=== PATIENT | male | born 1965 | race Caucasian/White ===

== ENCOUNTER 2018-01-15 21:36 | Inpatient (IN) | payer OTHER ==
[2018-01-15] MEDS ORDERED: SODIUM CHLORIDE 0.9% 1,000 ML with MVI, ADULT NO.4 WITH VIT K 10 ML, THIAMINE 100 MG, F... IV ONE ×4 (22:24)
--- NOTE | 2018-01-15 22:30 | ED ---
General Adult HPI - General Chief complaint: Alcohol Stated complaint: ETOH Time Seen by Provider: 01/15/18 21:59 Source: patient, EMS, RN notes reviewed, old records reviewed Mode of arrival: EMS - History of Present Illness Initial comments: Chief complaint and history of present illness this is a 52-year-old male reports he was drinking heavily recently. Had a fall bruising as noted. Also complains discomfort to the right side of his head after previous fall but he can't remember. Patient presents intoxicated. - Related Data Home Medications Medication Instructions Recorded Confirmed Ibuprofen [Motrin Ib] 600 mg PO Q6H PRN 01/15/18 01/15/18 Allergies Allergy/AdvReac Type Severity Reaction Status Date / Time No Known Allergies Allergy Verified 01/15/18 22:08 Review of Systems ROS Statement: Those systems with pertinent positive or pertinent negative responses have been documented in the HPI. Review of systems patient is answering questions but he can't remember when or how he fell. Denies any visual acuity changes this complaining of mild headache denies neck pain. He does have right anterior chest wall pain is a large bruise. No abdominal pain. Not complaining of any nausea no vomiting no diarrhea. He reports 3 years she's had numbness to both his hands and his feet. Chronic neck and back pain. Nothing new all systems are reviewed Past medical problems COPD, smoker. GERD, seizure disorder last one 18 months ago. Syncopal episodes usually associated with alcohol seizures also associated when he stops drinking. The patient's surgeries include ear surgery tonsils the nasal surgery. Family history noncontributory patient does smoke drinks alcohol daily to excess. ROS Other: All systems not noted in ROS Statement are negative. Past Medical History Past Medical History: COPD, GERD/Reflux, Seizure Disorder, Syncope Additional Past Medical History / Comment(s): ETOH abuse 4years, syncope with seizure related to alcohol withdrawal and delerium tremors, thrombocytopenia, hyponatremia, increased AST and ALT and increased random blood sugars, gait dysfunction and encephalopathy. History of Any Multi-Drug Resistant Organisms: None Reported Past Surgical History: Ear Surgery, Tonsillectomy Additional Past Surgical History / Comment(s): nasal surgery "holes drilled in sinuses for drainage), vocal cord scraping, and bilateral ear surgery which pt believes was for "double mastoids" Past Anesthesia/Blood Transfusion Reactions: No Reported Reaction Past Psychological History: Anxiety, Bipolar, Depression Smoking Status: Current every day smoker Past Alcohol Use History: Daily, Heavy Past Drug Use History: None Reported - Past Family History Father Family Medical History: Cancer Additional Family Medical History / Comment(s): Stomach cancer. He is alive. Mother Family Medical History: No Reported History Additional Family Medical History / Comment(s): Mother is living and is healthy Brother(s) Additional Family Medical History / Comment(s): Bipolar, schizoprenia General Exam - General Exam Comments Initial Comments: General: The patient is awake here because of epistaxis after falling is a bruise on the bridge of his nose. No raccoon eyes. Doesn't remember falling. Chronically intoxicated. Vital signs temperature 97.0 pulse 70 respiratory rate 18 pulse ox 93% room air blood pressure 115/75 Eye: Pupils are equal, round and reactive to light, extra-ocular movements are intact ; there is normal conjunctiva bilaterally. No signs of icterus. Ears, nose, mouth and throat: There are moist mucous membranes abrasion on the bridge of the nose. Controlled epistaxis at this time. Neck: Long history of chronic neck pain. Demonstrates range of motion without increased discomfort.. Cardiovascular: There is a regular rate and rhythm. No murmur, rub or gallop is appreciated. Respiratory: Lungs are clear to auscultation, respirations are non-labored, breath sounds are equal. No wheezes, stridor, rales, or rhonchi. Large reasonably recent bruise over her right breast area. Gastrointestinal: Soft, non-distended, non-tender abdomen without masses or organomegaly noted. There is no rebound or guarding present. No CVA tenderness. Bowel sounds are unremarkable. Back: There is no tenderness to palpation in the midline. There is no obvious deformity. No rashes noted. Musculoskeletal: Chronic numbness hands and feet for many years due to neck and back problems. Neurological: Intoxicated but answering questions appropriately. Moving upper and lower extremities, chronic numbness upper and lower extremities. Skin: Unkempt, chronic alcohol abuse Psychiatric: Cooperative, denies being depressed ,history of alcoholism. Course Vital Signs 01/15/18 21:37 Temperature 97.0 F L Pulse Rate 79 Respiratory 18 Rate Blood Pressure 115/75 O2 Sat by Pulse 93 L Oximetry Medical Decision Making - Medical Decision Making This is a 52-year-old male who admits to being an alcoholic. Here because he fell at home and presented with controlled epistaxis. Patient's answering questions appropriately. Blood alcohol is 0.450. Patient was placed in seizure precautions. Placed on Ativan protocol. Banana bag was started. After CAT scans have been performed patient be admitted to the hospital because of elevated blood alcohol. CT of the brain and cervical spine were done and reviewed by radiologist his findings include there is a fracture of the nasal bone which is displaced to the right side. There is mild cerebral cortical atrophy. There is no mass effect or midline shift. Is no sign of intracranial hemorrhage. Cervical vertebrae of normal alignment. Disc spaces are fairly normal. Posterior elements are intact. There is a mild facet arthropathy in the lower cervical spine. Skull base is intact. There is no evidence of a fracture. There is high attenuation in the left maxillary sinus. Impression nasal bone fracture. Maxillary sinusitis. Ethmoid sinusitis. There is high attenuation in the left maxillary sinus that is new compared to old exam and could be acute hemorrhage. No acute intracranial abnormality. Mild atrophy. Ethmoid density is new and could be related to trauma. No acute abnormality of the cervical spine. No fracture. As read by Dr. Driscoll Chest x-ray was done AP view reviewed by radiologist his impression is no active cardiopulmonary disease. No adverse change compared to old exam. As read by Dr. Driscoll Labs show white count of 4.6 hemoglobin 10 hematocrit 31.9 and a potassium 3.4. BUN 11 creatinine 1.1 GFR greater than 60. Glucose 103. Magnesium low 1.4. He received 1 g of magnesium IV piggyback. AST elevated at 120. Alcohol as noted above is 0.45. Otherwise the urine triage is negative for drugs of abuse. Patient be admitted to Dr. Jamarcus Duque. Continued on Ativan protocol as well as seizure precautions. - Lab Data Result diagrams: 01/15/18 21:47 01/15/18 21:47 Lab Results 01/15/18 01/15/18 01/15/18 Range/Units 21:47 21:47 21:47 WBC 4.6 (3.8-10.6) k/uL RBC 3.09 L (4.30-5.90) m/uL Hgb 10.2 L (13.0-17.5) gm/dL Hct 31.9 L (39.0-53.0) % MCV 103.2 H (80.0-100.0) fL MCH 33.0 (25.0-35.0) pg MCHC 32.0 (31.0-37.0) g/dL RDW 13.1 (11.5-15.5) % Plt Count 115 L (150-450) k/uL Neutrophils % 54 % Lymphocytes % 29 % Monocytes % 9 % Eosinophils % 2 % Basophils % 1 % Neutrophils # 2.5 (1.3-7.7) k/uL Lymphocytes # 1.4 (1.0-4.8) k/uL Monocytes # 0.4 (0-1.0) k/uL Eosinophils # 0.1 (0-0.7) k/uL Basophils # 0.1 (0-0.2) k/uL Macrocytosis Slight PT 10.4 (9.0-12.0) sec INR 1.1 (<1.2) Sodium 141 (137-145) mmol/L Potassium 3.4 L (3.5-5.1) mmol/L Chloride 96 L (98-107) mmol/L Carbon Dioxide 32 H (22-30) mmol/L Anion Gap 13 mmol/L BUN 11 (9-20) mg/dL Creatinine 1.10 (0.66-1.25) mg/dL Est GFR (MDRD) Af Amer >60 (>60 ml/min/1.73 sqM) Est GFR (MDRD) Non-Af >60 (>60 ml/min/1.73 sqM) Glucose 103 H (74-99) mg/dL Calcium 8.0 L (8.4-10.2) mg/dL Magnesium 1.4 L (1.6-2.3) mg/dL Total Bilirubin 0.3 (0.2-1.3) mg/dL AST 120 H (17-59) U/L ALT 59 (21-72) U/L Alkaline Phosphatase 73 (38-126) U/L Total Protein 6.7 (6.3-8.2) g/dL Albumin 3.9 (3.5-5.0) g/dL Urine Opiates Screen (NotDetected) Ur Oxycodone Screen (NotDetected) Urine Methadone Screen (NotDetected) Ur Propoxyphene Screen (NotDetected) Ur Barbiturates Screen (NotDetected) U Tricyclic Antidepress (NotDetected) Ur Phencyclidine Scrn (NotDetected) Ur Amphetamines Screen (NotDetected) U Methamphetamines Scrn (NotDetected) U Benzodiazepines Scrn (NotDetected) Urine Cocaine Screen (NotDetected) U Marijuana (THC) Screen (NotDetected) Serum Alcohol 450 mg/dL 01/15/18 Range/Units 21:47 WBC (3.8-10.6) k/uL RBC (4.30-5.90) m/uL Hgb (13.0-17.5) gm/dL Hct (39.0-53.0) % MCV (80.0-100.0) fL MCH (25.0-35.0) pg MCHC (31.0-37.0) g/dL RDW (11.5-15.5) % Plt Count (150-450) k/uL Neutrophils % % Lymphocytes % % Monocytes % % Eosinophils % % Basophils % % Neutrophils # (1.3-7.7) k/uL Lymphocytes # (1.0-4.8) k/uL Monocytes # (0-1.0) k/uL Eosinophils # (0-0.7) k/uL Basophils # (0-0.2) k/uL Macrocytosis PT (9.0-12.0) sec INR (<1.2) Sodium (137-145) mmol/L Potassium (3.5-5.1) mmol/L Chloride (98-107) mmol/L Carbon Dioxide (22-30) mmol/L Anion Gap mmol/L BUN (9-20) mg/dL Creatinine (0.66-1.25) mg/dL Est GFR (MDRD) Af Amer (>60 ml/min/1.73 sqM) Est GFR (MDRD) Non-Af (>60 ml/min/1.73 sqM) Glucose (74-99) mg/dL Calcium (8.4-10.2) mg/dL Magnesium (1.6-2.3) mg/dL Total Bilirubin (0.2-1.3) mg/dL AST (17-59) U/L ALT (21-72) U/L Alkaline Phosphatase (38-126) U/L Total Protein (6.3-8.2) g/dL Albumin (3.5-5.0) g/dL Urine Opiates Screen Not Detected (NotDetected) Ur Oxycodone Screen Not Detected (NotDetected) Urine Methadone Screen Not Detected (NotDetected) Ur Propoxyphene Screen Not Detected (NotDetected) Ur Barbiturates Screen Not Detected (NotDetected) U Tricyclic Antidepress Not Detected (NotDetected) Ur Phencyclidine Scrn Not Detected (NotDetected) Ur Amphetamines Screen Not Detected (NotDetected) U Methamphetamines Scrn Not Detected (NotDetected) U Benzodiazepines Scrn Not Detected (NotDetected) Urine Cocaine Screen Not Detected (NotDetected) U Marijuana (THC) Screen Not Detected (NotDetected) Serum Alcohol mg/dL Disposition Clinical Impression: Alcohol intoxication, Nasal bone fracture Disposition: ADMITTED IP TO THIS [facility] Condition: Fair Referrals: Jamarcus Duque MD [Primary Care Provider] - 1-2 days
[2018-01-15 22:47] LABS: Basophils # (A) 0.1 k/uL (0-0.2); Basophils % (A) 1 %; Eosinophils # (A) 0.1 k/uL (0-0.7); Eosinophils % (A) 2 %; HCT 31.9 % (39.0-53.0); HGB 10.2 gm/dL (13.0-17.5); Lymphocytes # (A) 1.4 k/uL (1.0-4.8); Lymphocytes % (A) 29 %; MCV 103.2 fL (80.0-100.0); Macrocytosis Slight; Monocytes # (A) 0.4 k/uL (0-1.0); Monocytes % (A) 9 %; Neutrophils # (A) 2.5 k/uL (1.3-7.7); Neutrophils % (A) 54 %; Platelet Count 115 k/uL (150-450); RBC 3.09 m/uL (4.30-5.90); RDW 13.1 % (11.5-15.5); WBC 4.6 k/uL (3.8-10.6)
[2018-01-15 22:56] LABS: ALT 59 U/L (21-72); AST 120 U/L (17-59); Albumin 3.9 g/dL (3.5-5.0); Alkaline Phosphatase 73 U/L (38-126); Anion Gap 13 mmol/L; Blood Urea Nitrogen 11 mg/dL (9-20); Carbon Dioxide 32 mmol/L (22-30); Chloride 96 mmol/L (98-107); Glucose 103 mg/dL (74-99); Magnesium 1.4 mg/dL (1.6-2.3); Potassium 3.4 mmol/L (3.5-5.1); Sodium 141 mmol/L (137-145); Total Bilirubin 0.3 mg/dL (0.2-1.3); Total Protein 6.7 g/dL (6.3-8.2)
[2018-01-15 22:57] LABS: INR 1.1 (<1.2); Prothrombin Time 10.4 sec (9.0-12.0)
[2018-01-15 22:59] LABS: Amphetamine Screen,Urine Not Detected (NotDetected); Barbiturate Screen,Urine Not Detected (NotDetected); Benzodiazepines Screen,Urine Not Detected (NotDetected); Cocaine Screen,Urine Not Detected (NotDetected); Methadone Screen, Urine Not Detected (NotDetected); Opiate Screen,Urine Not Detected (NotDetected); Oxycodone Screen, Urine Not Detected (NotDetected); Phencyclidine Screen,Urine Not Detected (NotDetected); Tricyclic Antidepressant,Urine Not Detected (NotDetected); Urn Cannabinoid Scrn Not Detected (NotDetected)
--- NOTE | 2018-01-15 23:04 | CT ---
EXAMINATION TYPE: CT brain jared wo con DATE OF EXAM: 01/15/2018 COMPARISON: 07/12/2016 HISTORY: Frequent falls. CT DLP: 1423.9 mGycm Automated exposure control for dose reduction was used. TECHNIQUE: CT scan of the head and cervical spine are performed without contrast. FINDINGS: There is a fracture of the nasal bone which is displaced to the right side. There is mode rate mucosal thickening in the maxillary and ethmoid sinuses. There is mild cerebral cortical atrophy . There is no mass effect nor midline shift. There is no sign of intracranial hemorrhage. The cervical vertebra have normal alignment. Disc spaces are fairly normal. Posterior elements are in tact. There is mild facet arthropathy in the lower cervical spine. Skull base is intact. There is no evidence of a fracture. There is high attenuation in the left maxillary sinus. IMPRESSION: Nasal bone fracture. Maxillary sinusitis. Ethmoid sinusitis. There is high attenuation in the left ma xillary sinus that is new compared to old exam and could be acute hemorrhage. No acute intracranial a bnormality. Mild atrophy. Ethmoid density is new and could be related to trauma. No acute abnormality of the cervical spine. No fracture.
--- NOTE | 2018-01-15 23:06 | XR ---
EXAMINATION TYPE: XR chest 1V portable DATE OF EXAM: 01/15/2018 COMPARISON: 04/26/2015 HISTORY: Fall. Chest pain. TECHNIQUE: Single frontal view of the chest is obtained. FINDINGS: Heart and mediastinum are normal. Lungs are clear. Costophrenic angles are clear. There ar e no hilar masses. Bony thorax appears intact. IMPRESSION: No active cardiopulmonary disease. No adverse change compared to old exam.
[2018-01-15 23:22] LABS: Alcohol 450 mg/dL
[2018-01-16] MEDS ORDERED: MAGNESIUM SULFATE-D5W PMX 1 GM in DEXTROSE/WATER 1 100ML.BAG IVPB ONE (00:08)
[2018-01-16] MEDS ORDERED: NALOXONE 0.4 MG/ML 1 ML VIAL IV PRN (00:18)
[2018-01-16] MEDS ORDERED: ONDANSETRON 4 MG/2 ML VIAL IVP PRN (00:18)
[2018-01-16] MEDS ORDERED: CEPHALEXIN 500MG STARTER PACK 4 CAP BTL PO STA ×2 (00:18→00:47)
[2018-01-16] MEDS ORDERED: CEPHALEXIN 500 MG CAP PO STA ×2 (00:53)
[2018-01-16] MEDS: LORazepam 2 MG/ML INJ IV PRN ×7 (03:45→22:37)
[2018-01-16 06:54] VITALS: BMI 22.6
[2018-01-16] MEDS: CEPHALEXIN 500 MG CAP PO SCH ×4 (08:36→23:23)
[2018-01-16] MEDS: FAMOTIDINE 20 MG TAB PO SCH ×2 (08:36→23:23)
[2018-01-16] MEDS: SODIUM CHLORIDE 0.9% 1,000 ML IV SCH ×2 (08:37→16:36)
[2018-01-16] MEDS: ACETAMINOPHEN TAB 325 MG TAB PO PRN (08:41)
[2018-01-16] MEDS ORDERED: THIAMINE 100 MG/ML 2 ML VIAL IM STA (20:08)
[2018-01-16] MEDS ORDERED: LORazepam 2 MG/ML INJ IV ONE (23:04)
--- NOTE | 2018-01-16 23:25 | HP ---
HISTORY AND PHYSICAL CHIEF COMPLAINT: A 52-year-old white male with alcohol intoxication, alcohol withdrawal. His alcohol level is 405. He came into the ER after falling down at home, discomfort in his head. A CT scan of head was negative except for nasal fracture deviation to the right. He drank a couple of pints of beer prior to coming to hospital, states he feels good now. His home medicine is ibuprofen. Allergies are negative. 14-POINT REVIEW OF SYSTEMS: Neurologic tremor. No seizures. He cannot remember when or how he fell. Denies any visual acuity. Denies neck pain. He has some large bruise on his anterior chest wall from falling. No abdominal pain. 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 PAST MEDICAL HISTORY: COPD, nicotine addiction, GERD, seizure disorder, alcoholism. SURGERIES: He had ear surgery, tonsillectomy, nasal surgery. FAMILY HISTORY: He smokes and drinks on a regular basis. History of seizure disorder, GERD, COPD, syncope, history of anxiety, bipolar depression. FAMILY HISTORY: Father with stomach cancer. Mother living, healthy. Brother with bipolar schizophrenia. PHYSICAL EXAM: He has some bruising on his nasal area deviated to the right. He is giving appropriate answers. O2 sat is mid 90s. Blood pressure 115/75, temp 97, respiratory rate 60-70. Pupils equal, round, reactive to light and accommodation. NEUROLOGIC: He has a tremor of all 4 extremities, mild to moderate. LUNGS: Scattered wheeze. No rales or rhonchi. INTEGUMENT: He has a recent bruises on the right breast area. GI: Soft, nontender. No abdominal tenderness. No guarding. No rebound tenderness. Increased bowel sounds x4. No mass or organomegaly. Temp 97, blood pressure 150s/70s. ASSESSMENT: 1. Alcohol withdrawal, chronic alcoholism, alcohol-based neuropathy. Clinical [place] Withdrawn Assessment protocols in place. 2. Nasal fracture. ENT consult. 3. Get psych consult for possible bipolar depression. 4. Hypomagnesemia. Magnesium will be replaced. 5. Hypokalemia. Potassium will be replaced, also. MMODL / IJN: [id number] /
[2018-01-17] MEDS: LORazepam 2 MG/ML INJ IV PRN ×11 (01:29→23:34)
[2018-01-17 07:16] LABS: Basophils # (A) 0.1 k/uL (0-0.2); Basophils % (A) 1 %; Eosinophils # (A) 0.1 k/uL (0-0.7); Eosinophils % (A) 1 %; HCT 34.6 % (39.0-53.0); HGB 11.5 gm/dL (13.0-17.5); Lymphocytes # (A) 1.3 k/uL (1.0-4.8); Lymphocytes % (A) 19 %; MCH 33.5 pg (25.0-35.0); MCHC 33.2 g/dL (31.0-37.0); MCV 101.1 fL (80.0-100.0); Macrocytosis Slight; Mean Platelet Volume 8.6; Monocytes # (A) 0.6 k/uL (0-1.0); Monocytes % (A) 9 %; Neutrophils # (A) 4.7 k/uL (1.3-7.7); Neutrophils % (A) 68 %; Platelet Count 124 k/uL (150-450); RBC 3.42 m/uL (4.30-5.90); RDW 13.3 % (11.5-15.5); WBC 6.9 k/uL (3.8-10.6)
[2018-01-17 07:35] LABS: ALT 57 U/L (21-72); AST 97 U/L (17-59); Albumin 4.4 g/dL (3.5-5.0); Alkaline Phosphatase 93 U/L (38-126); Anion Gap 12 mmol/L; Blood Urea Nitrogen 9 mg/dL (9-20); Calcium 9.5 mg/dL (8.4-10.2); Carbon Dioxide 29 mmol/L (22-30); Chloride 100 mmol/L (98-107); Glucose 92 mg/dL (74-99); Sodium 141 mmol/L (137-145); Total Bilirubin 0.9 mg/dL (0.2-1.3); Total Protein 7.5 g/dL (6.3-8.2)
[2018-01-17] MEDS: FAMOTIDINE 20 MG TAB PO SCH ×2 (08:10→21:59)
[2018-01-17] MEDS: CEPHALEXIN 500 MG CAP PO SCH ×4 (08:10→21:59)
[2018-01-17] MEDS: SODIUM CHLORIDE 0.9% 1,000 ML IV SCH ×2 (16:11→17:05)
[2018-01-17] MEDS: THIAMINE 100 MG TAB PO SCH ×2 (17:03→18:02)
[2018-01-17] MEDS: NICOTINE 21MG/24HR PATCH TRANSDERM SCH (20:00)
--- NOTE | 2018-01-17 21:08 | PN ---
PROGRESS NOTE This is a white male with alcohol intoxication, still has extreme amounts of withdrawal with large amounts of tremor in his extremities. He has a nasal fracture. Dr. Landis has refused his consultation. Will try to find another ear, Nose, and throat doctor who will come see him. Will get psychiatry to see him for depression and bipolar. There is a history of bipolar in the family. VITAL SIGNS: Stable, afebrile. CARDIOVASCULAR: S1, S2. LUNGS: Transmitted upper airway sounds. HEMATOLOGY: Negative Homans'. ASSESSMENT: 1. Alcohol intoxication. 2. Nasal fracture. 3. Alcohol withdrawal. Continue with current treatment, CIWA protocol. Will get psych consult, ENT consult. MMODL / IJN: [id number] /
[2018-01-18] MEDS: LORazepam 2 MG/ML INJ IV PRN ×18 (01:10→23:50)
[2018-01-18 04:55] LABS: Glucose,Whole Blood 119 mg/dL (75-99)
[2018-01-18 05:34] LABS: Basophils # (A) 0.1 k/uL (0-0.2); Basophils % (A) 1 %; Eosinophils # (A) 0.1 k/uL (0-0.7); Eosinophils % (A) 1 %; HCT 35.1 % (39.0-53.0); HGB 11.4 gm/dL (13.0-17.5); Lymphocytes # (A) 0.9 k/uL (1.0-4.8); Lymphocytes % (A) 10 %; MCH 33.1 pg (25.0-35.0); MCHC 32.6 g/dL (31.0-37.0); MCV 101.5 fL (80.0-100.0); Macrocytosis Slight; Mean Platelet Volume 9.2; Monocytes # (A) 0.6 k/uL (0-1.0); Monocytes % (A) 7 %; Neutrophils # (A) 7.2 k/uL (1.3-7.7); Neutrophils % (A) 80 %; Platelet Count 134 k/uL (150-450); RBC 3.45 m/uL (4.30-5.90); RDW 13.6 % (11.5-15.5); WBC 8.9 k/uL (3.8-10.6)
[2018-01-18] MEDS: SODIUM CHLORIDE 0.9% 1,000 ML IV SCH ×9 (05:40→23:50)
[2018-01-18 05:48] LABS: ALT 58 U/L (21-72); AST 88 U/L (17-59); Albumin 4.2 g/dL (3.5-5.0); Alkaline Phosphatase 77 U/L (38-126); Anion Gap 12 mmol/L; Blood Urea Nitrogen 12 mg/dL (9-20); Calcium 9.4 mg/dL (8.4-10.2); Carbon Dioxide 25 mmol/L (22-30); Chloride 103 mmol/L (98-107); Glucose 98 mg/dL (74-99); Magnesium 1.2 mg/dL (1.6-2.3); Potassium 3.8 mmol/L (3.5-5.1); Sodium 140 mmol/L (137-145); Total Protein 7.4 g/dL (6.3-8.2)
[2018-01-18] MEDS: FAMOTIDINE 20 MG TAB PO SCH (08:25)
[2018-01-18] MEDS: CEPHALEXIN 500 MG CAP PO SCH ×2 (08:25→13:45)
[2018-01-18] MEDS: NICOTINE 21MG/24HR PATCH TRANSDERM SCH (08:25)
[2018-01-18] MEDS: THIAMINE 100 MG TAB PO SCH (08:25)
[2018-01-18] MEDS ORDERED: PHENobarbital SODIUM 65 MG/ML 1 ML VIAL IV STA (10:54)
[2018-01-18] MEDS ORDERED: Magnesium Replacement Protocol 1 EACH MISC MISCELLANE PRN (11:03)
[2018-01-18] MEDS ORDERED: Potassium Replacement Protocol 1 EACH MISC MISCELLANE PRN ×2 (11:03→16:20)
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
[2018-01-18] MEDS ORDERED: FOLIC ACID 1 MG TAB PO SCH (12:00)
[2018-01-18] MEDS ORDERED: MULTIVITAMINS, THERA 1 EACH TAB PO SCH ×2 (12:00→12:30)
[2018-01-18 12:11] LABS: Glucose,Whole Blood 90 mg/dL (75-99)
[2018-01-18] MEDS: IPRATROPIUM-ALBUTEROL 3 ML NEB INHALATION SCH ×3 (12:13→20:37)
[2018-01-18] MEDS ORDERED: LORazepam 2 MG/ML INJ IV STA ×2 (13:38→14:58)
[2018-01-18] MEDS: MAGNESIUM SULFATE-D5W PMX 1 GM in DEXTROSE/WATER 1 100ML.BAG IVPB SCH ×3 (13:40→15:57)
[2018-01-18] MEDS ORDERED: SODIUM CHLORIDE 0.9% 500 ML IV ONE (14:59)
[2018-01-18] MEDS: PANTOPRAZOLE 40 MG/10 ML VIAL IVP SCH (15:43)
[2018-01-18] MEDS: 1: MVI, ADULT NO.4 WITH VIT K 10 ML, THIAMINE 100 MG, FOLIC ACID 1 MG in SODIUM CHLORIDE IV SCH ×4 (15:59)
--- NOTE | 2018-01-18 16:36 | PN ---
PROGRESS NOTE SUBJECTIVE: Followup alcohol withdrawal, nasal fracture. Vital signs stable. Afebrile. CARDIOVASCULAR: S1, S2. LUNGS: Clear. GI: Soft. HEMATOLOGY: Negative Homans. PSYCH: Fair mood and affect. alcohol withdrawal. TREATMENTS: ENT for nasal fracture. [facility] protocol. Neurology consult is pending for alcohol withdrawal and severe tremors. Will get environmental compliance specialist on board also to help with alcohol withdrawal and altered mental status. MMODL / IJN: [id number] /
[2018-01-18] MEDS: ceFAZolin 1,000 MG in DEXTROSE/WATER 1 50ML.BAG IVPB SCH ×2 (17:00→23:22)
[2018-01-18] MEDS: POTASSIUM CHLORIDE 10 MEQ in SODIUM CHLORIDE 0.9% 100 ML IVPB SCH ×2 (17:05→17:55)
[2018-01-18] MEDS: PHENobarbital SODIUM 65 MG/ML 1 ML VIAL IV SCH ×2 (17:55→23:22)
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
--- NOTE | 2018-01-19 00:45 | CONS ---
CONSULTATION DATE OF SERVICE: 01/18/2018. PURPOSE FOR CONSULTATION: Evaluate for alcohol withdrawal issues. HISTORY OF PRESENT ILLNESS: The patient is a 52-year-old male who was admitted to ICU for alcohol intoxication and alcohol withdrawal. His alcohol level was 405. He was admitted to ICU in delirium. When I saw the patient, he was not communicative. He was awake. He made rambling statements, though most of what he said was not understandable. He was not able to respond to any questions. He could follow basic commands. He did respond well to nursing staff support. ASSESSMENT: This is a 52-year-old male. He is diagnosed with delirium secondary to acute alcohol withdrawal. I agree with current treatment. He needs treatment focused on managing his acute alcohol withdrawal symptoms. Please reconsult psychiatry when the patient is stable from his current delirium tremens. ANGELICA / SHAW: [id number] /
[2018-01-19] MEDS: LORazepam 2 MG/ML INJ IV PRN ×2 (01:02→02:09)
[2018-01-19] MEDS: 1: MVI, ADULT NO.4 WITH VIT K 10 ML, THIAMINE 100 MG, FOLIC ACID 1 MG in SODIUM CHLORIDE IV SCH ×8 (02:08→11:20)
[2018-01-19 05:14] LABS: Basophils # (A) 0.1 k/uL (0-0.2); Basophils % (A) 1 %; Eosinophils # (A) 0.3 k/uL (0-0.7); Eosinophils % (A) 3 %; HCT 35.6 % (39.0-53.0); HGB 11.7 gm/dL (13.0-17.5); Lymphocytes # (A) 1.4 k/uL (1.0-4.8); Lymphocytes % (A) 15 %; MCH 33.6 pg (25.0-35.0); MCHC 32.8 g/dL (31.0-37.0); MCV 102.4 fL (80.0-100.0); Macrocytosis Slight; Mean Platelet Volume 8.6; Monocytes # (A) 0.7 k/uL (0-1.0); Monocytes % (A) 7 %; Neutrophils % (A) 73 %; Platelet Count 155 k/uL (150-450); RBC 3.48 m/uL (4.30-5.90); RDW 13.5 % (11.5-15.5); WBC 9.6 k/uL (3.8-10.6)
[2018-01-19 05:22] LABS: Anion Gap 13 mmol/L; Blood Urea Nitrogen 13 mg/dL (9-20); Calcium 9.2 mg/dL (8.4-10.2); Carbon Dioxide 21 mmol/L (22-30); Chloride 105 mmol/L (98-107); Glucose 68 mg/dL (74-99); Magnesium 1.8 mg/dL (1.6-2.3); Potassium 3.5 mmol/L (3.5-5.1); Sodium 139 mmol/L (137-145)
[2018-01-19] MEDS ORDERED: Magnesium Replacement Protocol 1 EACH MISC MISCELLANE PRN (05:29)
[2018-01-19] MEDS ORDERED: Potassium Replacement Protocol 1 EACH MISC MISCELLANE PRN (05:29)
[2018-01-19] MEDS: PHENobarbital SODIUM 65 MG/ML 1 ML VIAL IV SCH ×3 (05:36→20:22)
[2018-01-19] MEDS ORDERED: DEXTROSE 50%-WATER 50 ML SYRINGE IVP ONE (05:41)
[2018-01-19 05:42] LABS: Glucose,Whole Blood 68 mg/dL (75-99)
[2018-01-19] MEDS: POTASSIUM CHLORIDE 10 MEQ in WATER FOR INJECTION 1 100ML.BAG IVPB SCH ×2 (05:50→06:38)
[2018-01-19] MEDS: MAGNESIUM SULFATE-D5W PMX 1 GM in DEXTROSE/WATER 1 100ML.BAG IVPB SCH ×4 (05:50→16:33)
[2018-01-19 05:58] LABS: Glucose,Whole Blood 132 mg/dL (75-99)
[2018-01-19] MEDS: IPRATROPIUM-ALBUTEROL 3 ML NEB INHALATION SCH ×4 (07:28→20:55)
[2018-01-19] MEDS: ceFAZolin 1,000 MG in DEXTROSE/WATER 1 50ML.BAG IVPB SCH ×2 (07:57→17:39)
[2018-01-19] MEDS: PANTOPRAZOLE 40 MG/10 ML VIAL IVP SCH (08:45)
[2018-01-19] MEDS: SODIUM CHLORIDE 0.9% 1,000 ML IV SCH ×2 (08:46→16:45)
[2018-01-19] MEDS: NICOTINE 21MG/24HR PATCH TRANSDERM SCH (08:46)
[2018-01-19 12:24] LABS: Anion Gap 11 mmol/L; Blood Urea Nitrogen 9 mg/dL (9-20); Calcium 8.7 mg/dL (8.4-10.2); Carbon Dioxide 24 mmol/L (22-30); Chloride 105 mmol/L (98-107); Glucose 73 mg/dL (74-99); Magnesium 1.8 mg/dL (1.6-2.3); Potassium 3.5 mmol/L (3.5-5.1); Sodium 140 mmol/L (137-145)
--- NOTE | 2018-01-19 14:38 | P.PN ---
Subjective Progress Note Date: 01/19/18 (Patient seen and evaluated examined while covering for Dr. Jamarcus Duque) Principal diagnosis: Acute DTs with it to normal withdrawal, electrolytes imbalance with hypomagnesemia and hypokalemia, nasal bone fracture, hypoglycemia related to alcoholism and malnourishment 01/19/2018, patient seen eval examined in the ICU he is slightly more awake as per discussion with the RN mental status slightly more improved patient had significant bradycardia while he was sleeping but however while he is awake heart rate in 80s hemodynamic status stable patient is awake but nonverbal and noncommunicative intermittently agitated continued to require restraints, do not feel that patient can't tolerate by mouth we'll keep patient nothing by mouth for now patient is on the DT protocol with Ativan, labs reviewed medications reviewed Objective - Vital Signs Vital signs: Vital Signs Temp 97.0 F L 01/19/18 08:00 Pulse 54 L 01/19/18 14:00 Resp 13 01/19/18 14:00 BP 119/83 01/19/18 14:00 Pulse Ox 97 01/19/18 14:00 Intake & Output 01/18/18 01/19/18 01/19/18 18:59 06:59 18:59 Intake Total 980 2561.2 1000 Output Total 557 453 9257 Balance 840 1766.2 -170 Weight 86.4 kg Intake: IV 1450 1000 Magnesium Sulfate-D5w Pmx 100 100 1 gm In Dextrose/Water 1 100ml.bag @ 100 mls/hr IVPB Q1H [facility] Rx#: [id number] Mvi, Adult No.4 with Vit 500 300 K 10 ml Thiamine 100 mg Folic Acid 1 mg In Sodium Chloride 0.9% 1,000 ml @ 100 mls/hr IV .BY DURATION [facility] Rx#: [id number] Potassium Chloride 10 meq 100 100 In Sodium Chloride 0.9% 100 ml @ 100 mls/hr IVPB Q1H [facility] Rx#:[id number] Sodium Chloride 0.9% 1, 750 500 000 ml @ 125 mls/hr IV . Q8H [facility] Rx#:[id number] Intake, IV Titration 980 1111.2 Amount Mvi, Adult No.4 with Vit 400 1111.2 K 10 ml Thiamine 100 mg Folic Acid 1 mg In Sodium Chloride 0.9% 1,000 ml @ 100 mls/hr IV .BY DURATION [facility] Rx#: [id number] Sodium Chloride 0.9% 1, 80 000 ml @ 125 mls/hr IV . Q8H [facility] Rx#:[id number] Sodium Chloride 0.9% 500 500 ml @ 999 mls/hr IV .Q31M [facility] Rx#:[id number] Output: Urine 085 807 1025 Other: Voiding Method Indwelling Catheter Indwelling Catheter Indwelling Catheter # Voids 30 50 - Exam GENERAL EXAM: Awake, confused, hallucinating HEAD: Normocephalic. EYES: Normal reaction of pupils, equal size. NOSE: Clear with pink turbinates. Ecchymosis THROAT: No erythema or exudates. NECK: No masses, no JVD. CHEST: No chest wall deformity. Right-sided anterior chest wall ecchymosis from recent fall LUNGS: Lungs overall clear to auscultation however Bases diminished CVS: S1 and S2 normal with no audible mumurs, regular rhythm. ABDOMEN: No hepatosplenomegaly, normal bowel sounds, no guarding or rigidity. EXTREMITIES: No edema noted, pedal pulses palpable. CENTRAL NERVOUS SYSTEM: Tremors related to DTs, tone is normal in all 4 extremities., Moving all 4 extremity does open his eyes - Labs CBC & Chem 7: 01/19/18 04:51 01/19/18 11:59 Labs: Abnormal Lab Results - Last 24 Hours (Table) 01/19/18 01/19/18 01/19/18 Range/Units 04:51 04:51 04:51 RBC 3.48 L (4.30-5.90) m/uL Hgb 11.7 L (13.0-17.5) gm/dL Hct 35.6 L (39.0-53.0) % MCV 102.4 H (80.0-100.0) fL Carbon Dioxide 21 L (22-30) mmol/L Creatinine (0.66-1.25) mg/dL Glucose 68 L (74-99) mg/dL POC Glucose (mg/dL) (75-99) mg/dL CK-MB (CK-2) 8.6 H* (0.0-2.4) ng/mL 01/19/18 01/19/18 01/19/18 Range/Units 05:40 05:56 11:59 RBC (4.30-5.90) m/uL Hgb (13.0-17.5) gm/dL Hct (39.0-53.0) % MCV (80.0-100.0) fL Carbon Dioxide (22-30) mmol/L Creatinine 0.60 L (0.66-1.25) mg/dL Glucose 73 L (74-99) mg/dL POC Glucose (mg/dL) 68 L 132 H (75-99) mg/dL CK-MB (CK-2) (0.0-2.4) ng/mL Assessment and Plan Assessment: Imbalance with severe hypomagnesemia and hypokalemia DTs with alcohol withdrawal Nasal bone fracture Hypomagnesemia EtOH dependency Nicotine dependency Altered mental status and encephalopathy related to chronic alcoholism and ongoing DTs Plan: Continue DT protocol Replace electrolytes Keep patient nothing by mouth The patient in ICU for now Continue IV folate thiamine and multivitamin Maintain patient on DVT and peptic ulcer disease prophylaxis Time with Patient: Greater than 30
[2018-01-19] MEDS: POTASSIUM CHLORIDE 10 MEQ in SODIUM CHLORIDE 0.9% 100 ML IVPB SCH ×2 (15:37→16:34)
--- NOTE | 2018-01-19 16:55 | PN ---
PROGRESS NOTE He was seen on 01/19/2018. He is sleepy, barely arousable and quite lethargic. He does seem to be in some mild respiratory distress with some tachypnea and wheezing. PHYSICAL EXAMINATION: His blood pressure is 131/80, respiratory rate of 29, pulse rate of 54, O2 sat on supplemental oxygen is 94%. HEENT reveals pupils that are equal. Chest reveals expiratory wheezing. Cardiovascular system reveals an S1, S2. Abdomen is soft. There is no edema. Labs reveal a white count of 9.6, hemoglobin of 11.7. Sodium 140, potassium 3.5, chloride 105, bicarb 24, BUN 9, creatinine 0.6, glucose of 73, which previously was 68. Magnesium of 1.8. Impression at this time is: 1. Acute alcohol intoxication. 2. Delirium tremens. 3. Hypomagnesemia. 4. Bronchospasm, possibly secondary to asthma versus chronic obstructive pulmonary disease. 5. Lethargy in part due to Ativan. Would continue cefazolin, multivitamins, watch his sugars, use hypoglycemia protocol. Keep the patient on Protonix. Continue bronchodilators. Add IV steroids and aerosolized steroids to help optimize inflammatory status of the airway. The patient's prognosis is guarded. Depending on how he does, we shall make further changes to his care. MMODL / IJN: [id number] /
[2018-01-19] MEDS: methylPREDNISolone SOD SUCCI 125 MG/2 ML VIAL IV SCH (17:39)
--- NOTE | 2018-01-19 17:55 | P.PN ---
Subjective Progress Note Date: 01/19/18 Principal diagnosis: Patient is a 52-year-old male who is being followed by the neurology service for altered mental status. Patient came emergency room intoxicated with alcohol level of 450. Patient had a fall at home. CT of the head showed nasal bone fracture. CT of the head also showed left maxillary sinus attenuation which may be consistent with hemorrhage. CT of the brain showed no other acute abnormalities patient has periorbital bruising as well as right- sided anterior chest wall. Patient's tremors are less today than yesterday. Patient continues to be followed closely in the ICU. Ativan and phenobarbital is given per protocol and as needed. Patient becomes bradycardic sleep so phenobarbital is being spared. Patient does follow commands at times and answers questions appropriately at times. At the time of my evaluation, patient is resting comfortably in bed and appears to be in no acute distress. Objective - Vital Signs Vital signs: Vital Signs Temp 97.0 F L 01/19/18 08:00 Pulse 54 L 01/19/18 17:00 Resp 14 01/19/18 17:00 BP 132/82 01/19/18 17:00 Pulse Ox 95 01/19/18 17:00 Intake & Output 01/18/18 01/19/18 01/19/18 18:59 06:59 18:59 Intake Total 980 2561.2 1700 Output Total 990 418 6808 Balance 840 1766.2 305 Weight 86.4 kg Intake: IV 1450 1300 Magnesium Sulfate-D5w Pmx 100 100 1 gm In Dextrose/Water 1 100ml.bag @ 100 mls/hr IVPB Q1H [facility] Rx#: [id number] Mvi, Adult No.4 with Vit 500 600 K 10 ml Thiamine 100 mg Folic Acid 1 mg In Sodium Chloride 0.9% 1,000 ml @ 100 mls/hr IV .BY DURATION [facility] Rx#: [id number] Potassium Chloride 10 meq 100 100 In Sodium Chloride 0.9% 100 ml @ 100 mls/hr IVPB Q1H [facility] Rx#:[id number] Sodium Chloride 0.9% 1, 750 500 000 ml @ 125 mls/hr IV . Q8H [facility] Rx#:[id number] Intake, IV Titration 980 1111.2 400 Amount Magnesium Sulfate-D5w Pmx 200 1 gm In Dextrose/Water 1 100ml.bag @ 100 mls/hr IVPB Q1H [facility] Rx#: [id number] Mvi, Adult No.4 with Vit 400 1111.2 K 10 ml Thiamine 100 mg Folic Acid 1 mg In Sodium Chloride 0.9% 1,000 ml @ 100 mls/hr IV .BY DURATION [facility] Rx#: [id number] Potassium Chloride 10 meq 100 In Sodium Chloride 0.9% 100 ml @ 100 mls/hr IVPB Q1H [facility] Rx#:[id number] Potassium Chloride 10 meq 100 In Water For Injection 1 100ml.bag @ 100 mls/hr IVPB Q1H [facility] Rx#: [id number] Sodium Chloride 0.9% 1, 80 000 ml @ 125 mls/hr IV . Q8H [facility] Rx#:[id number] Sodium Chloride 0.9% 500 500 ml @ 999 mls/hr IV .Q31M [facility] Rx#:[id number] Output: Urine 181 [id number] 9402 Other: Voiding Method Indwelling Catheter Indwelling Catheter Indwelling Catheter # Voids 30 50 - Exam PHYSICAL EXAM: GENERAL APPEARANCE: Patient is a well-developed, male who appears to be in no acute distress. HEENT: Normocephalic, periorbital bruising, no facial asymmetry is seen. Neck is supple with no masses felt. CARDIOVASCULAR: Regular rate and rhythm. ABDOMEN: Nontender, nondistended. EXTREMITIES: Show no edema or clubbing. NEUROLOGICAL EXAM: Patient awakens to name. Speech is mildly dysarthric. Language is normal. Patient moves all 4 extremities purposefully. No lateralizing weakness noted. No obvious facial asymmetry is seen. Patient follows commands by showing his thumb and wiggling his toes. No seizure like activity has been reported. Tremors of extremities noted. - Labs CBC & Chem 7: 01/19/18 04:51 01/19/18 11:59 Labs: Abnormal Lab Results - Last 24 Hours (Table) 01/19/18 01/19/18 01/19/18 Range/Units 04:51 04:51 04:51 RBC 3.48 L (4.30-5.90) m/uL Hgb 11.7 L (13.0-17.5) gm/dL Hct 35.6 L (39.0-53.0) % MCV 102.4 H (80.0-100.0) fL Carbon Dioxide 21 L (22-30) mmol/L Creatinine (0.66-1.25) mg/dL Glucose 68 L (74-99) mg/dL POC Glucose (mg/dL) (75-99) mg/dL CK-MB (CK-2) 8.6 H* (0.0-2.4) ng/mL 01/19/18 01/19/18 01/19/18 Range/Units 05:40 05:56 11:59 RBC (4.30-5.90) m/uL Hgb (13.0-17.5) gm/dL Hct (39.0-53.0) % MCV (80.0-100.0) fL Carbon Dioxide (22-30) mmol/L Creatinine 0.60 L (0.66-1.25) mg/dL Glucose 73 L (74-99) mg/dL POC Glucose (mg/dL) 68 L 132 H (75-99) mg/dL CK-MB (CK-2) (0.0-2.4) ng/mL Assessment and Plan Plan: Impression: 1. Delirium tremens secondary to alcohol withdrawal 2. Nasal bone fracture 3. EtOH dependency 4. Hypomagnesemia Recommendations: Patient is seen in the ICU setting and appears to be going through alcohol withdrawal. Patient is currently on IV phenobarbital and Ativan per protocol. Seizure precautions are being maintained. As mentioned above, CT of the brain was without any acute process. Patient's respiratory status is being monitored closely. Patient continues to be confused and having hallucinations but it is less than yesterday. No seizure activity has been reported. No obvious lateralizing weakness or facial asymmetry is noted. I recommend to continue phenobarbital and benzodiazepine protocol. Psychiatry consultation was obtained. Continue seizure precautions. Continue current medical management. Any neurological changes, I recommend a stat CT of the head. No further neurological workup needed at this time. I will continue to follow with you on an as-needed basis. Feel free to call with any questions or concerns. I performed an examination of the patient and discussed the management with the CONTINUOUS CRUSHER OPERATOR. I have reviewed the CONTINUOUS CRUSHER OPERATOR notes and agree with the findings and plan of care.
[2018-01-19] MEDS: BUDESONIDE 0.5 MG/2 ML NEBU INHALATION SCH (20:55)
[2018-01-20] MEDS: ceFAZolin 1,000 MG in DEXTROSE/WATER 1 50ML.BAG IVPB SCH ×4 (00:45→23:16)
[2018-01-20] MEDS: methylPREDNISolone SOD SUCCI 125 MG/2 ML VIAL IV SCH ×4 (00:46→17:45)
[2018-01-20] MEDS: 1: MVI, ADULT NO.4 WITH VIT K 10 ML, THIAMINE 100 MG, FOLIC ACID 1 MG in SODIUM CHLORIDE IV SCH ×12 (02:28→16:43)
[2018-01-20] MEDS: PHENobarbital SODIUM 65 MG/ML 1 ML VIAL IV SCH ×2 (02:29→06:24)
[2018-01-20] MEDS: SODIUM CHLORIDE 0.9% 1,000 ML IV SCH ×5 (02:29→23:16)
[2018-01-20 04:40] LABS: Basophils % (A) 0 %; Eosinophils # (A) 0.1 k/uL (0-0.7); Eosinophils % (A) 1 %; HGB 11.1 gm/dL (13.0-17.5); Lymphocytes # (A) 0.4 k/uL (1.0-4.8); Lymphocytes % (A) 6 %; MCH 32.4 pg (25.0-35.0); MCHC 30.9 g/dL (31.0-37.0); MCV 104.8 fL (80.0-100.0); Macrocytosis Slight; Mean Platelet Volume 8.5; Monocytes # (A) 0.2 k/uL (0-1.0); Monocytes % (A) 3 %; Neutrophils # (A) 6.8 k/uL (1.3-7.7); Neutrophils % (A) 90 %; Platelet Count 167 k/uL (150-450); RBC 3.44 m/uL (4.30-5.90); RDW 13.5 % (11.5-15.5); WBC 7.6 k/uL (3.8-10.6)
[2018-01-20 04:49] LABS: Anion Gap 10 mmol/L; Blood Urea Nitrogen 14 mg/dL (9-20); Calcium 8.5 mg/dL (8.4-10.2); Carbon Dioxide 22 mmol/L (22-30); Chloride 104 mmol/L (98-107); Glucose 212 mg/dL (74-99); Magnesium 1.6 mg/dL (1.6-2.3); Potassium 4.2 mmol/L (3.5-5.1); Sodium 136 mmol/L (137-145)
[2018-01-20] MEDS ORDERED: Magnesium Replacement Protocol 1 EACH MISC MISCELLANE PRN (05:09)
[2018-01-20] MEDS: ACETAMINOPHEN TAB 325 MG TAB PO PRN (05:52)
[2018-01-20] MEDS: MAGNESIUM SULFATE-D5W PMX 1 GM in DEXTROSE/WATER 1 100ML.BAG IVPB SCH ×2 (06:24→07:09)
[2018-01-20] MEDS: BUDESONIDE 0.5 MG/2 ML NEBU INHALATION SCH ×2 (08:55→20:00)
[2018-01-20] MEDS: IPRATROPIUM-ALBUTEROL 3 ML NEB INHALATION SCH ×4 (08:56→20:00)
[2018-01-20] MEDS: NICOTINE 21MG/24HR PATCH TRANSDERM SCH (09:16)
[2018-01-20] MEDS: PANTOPRAZOLE 40 MG/10 ML VIAL IVP SCH (09:16)
[2018-01-20] MEDS: LORazepam 2 MG/ML INJ IV PRN ×4 (14:15→23:15)
--- NOTE | 2018-01-20 20:27 | PN ---
PROGRESS NOTE SUBJECTIVE: This is a white male, admitted with alcohol intoxication, delirium tremens, and nasal fracture, alcohol withdrawal, CIWA protocol. He is in ICU at this time. He is slowly improving from medical standpoint, waiting to be transferred to medical floor today after his tremors are greatly improved and his confusion is improved. He was seen by Neurology, data governance analyst while in ICU. ICU time 30 minutes. Possible discharge to alcohol rehab facility or psychiatric wing in next 24 to 48 hours. ICU time 30 minutes. MMJUDITHL / MARTÍNN: [id number] /
--- NOTE | 2018-01-20 20:57 | PN ---
PROGRESS NOTE DATE OF SERVICE: 01/20/18 He is seen again on January 20, 2018. He is awake, alert. He does not complain of any shortness of breath or respiratory distress. PHYSICAL EXAMINATION: His blood pressure is 134/84, respiratory rate of 16, pulse rate of 107, temperature 97.8, O2 saturation on room air is 94%. HEENT reveals pupils equal. Evidence of injury to his nose. No jugular venous distention. CHEST: Clear. Cardiovascular system reveals an S1, S2. ABDOMEN: Soft. There is no pedal edema. LABORATORY DATA: White count of 7.6, hemoglobin of 11.1, sodium 136, potassium 4.2, chloride 104, bicarb 22, BUN 14, creatinine 0.77, glucose is 212. IMPRESSION: 1. Acute alcohol intoxication. 2. Metabolic encephalopathy. 3. Alcohol withdrawal syndrome. 4. Bronchospasm. 5. Acute respiratory failure. 6. Doubt clinically that he has any ongoing infection. Would have ID further evaluate the patient to decide if he requires antibiotics. Continue him on his current medications including vitamins, Protonix, Habitrol, Pulmicort, discontinue his Solu-Medrol at this time. Because of recent fall, he is at high risk of bleed and will hold off on subcu heparin at this time. Depending on how he does we shall make further changes to his care. MMODL / IJN: [id number] /
[2018-01-21] MEDS: LORazepam 2 MG/ML INJ IV PRN ×3 (02:46→22:01)
[2018-01-21] MEDS: SODIUM CHLORIDE 0.9% 1,000 ML IV SCH ×6 (04:18→22:02)
[2018-01-21 07:53] LABS: Basophils % (A) 0 %; Eosinophils # (A) 0.1 k/uL (0-0.7); Eosinophils % (A) 1 %; HCT 34.3 % (39.0-53.0); HGB 11.1 gm/dL (13.0-17.5); Lymphocytes # (A) 1.5 k/uL (1.0-4.8); Lymphocytes % (A) 13 %; MCH 33.4 pg (25.0-35.0); MCHC 32.5 g/dL (31.0-37.0); MCV 102.7 fL (80.0-100.0); Macrocytosis Slight; Mean Platelet Volume 7.9; Monocytes # (A) 0.9 k/uL (0-1.0); Monocytes % (A) 8 %; Neutrophils # (A) 8.6 k/uL (1.3-7.7); Neutrophils % (A) 76 %; Platelet Count 215 k/uL (150-450); RBC 3.34 m/uL (4.30-5.90); RDW 14.2 % (11.5-15.5); WBC 11.3 k/uL (3.8-10.6)
[2018-01-21 08:08] LABS: Anion Gap 12 mmol/L; Blood Urea Nitrogen 11 mg/dL (9-20); Calcium 9.2 mg/dL (8.4-10.2); Carbon Dioxide 26 mmol/L (22-30); Chloride 104 mmol/L (98-107); Glucose 96 mg/dL (74-99); Magnesium 1.5 mg/dL (1.6-2.3); Potassium 3.6 mmol/L (3.5-5.1); Sodium 142 mmol/L (137-145)
[2018-01-21] MEDS: IPRATROPIUM-ALBUTEROL 3 ML NEB INHALATION SCH ×4 (08:45→20:47)
[2018-01-21] MEDS: BUDESONIDE 0.5 MG/2 ML NEBU INHALATION SCH ×2 (08:45→20:47)
--- NOTE | 2018-01-21 10:01 | P.PN ---
Subjective Progress Note Date: 01/21/18 Patient is being seen and examined and evaluated on rounds. Patient is seen sitting up in bedside chair on room air. He states he does get short of breath with activity and exertion. Denies any cough or congestion at this time. He is noted to continue to have some tremors related to alcohol withdrawal and has been on CIWA protocol and receiving Ativan. Patient states he would like to possibly pursue an outpatient rehab for his chronic alcohol abuse. He is afebrile no further complaints. Patient was seen by neurology and they have signed off. Patient was also seen by psych and at that time the patient was still continues a meeting and not making any sentences they asked us to let them know and reconsult them once the patient was more awake and alert. He is doing well is alert and answers questions appropriately we will update psych and have him evaluated. Objective - Vital Signs Vital signs: Vital Signs Temp 97.7 F 01/21/18 07:00 Pulse 86 01/21/18 08:59 Resp 20 01/21/18 07:00 BP 110/67 01/21/18 07:00 Pulse Ox 95 01/21/18 07:00 Intake & Output 01/20/18 01/21/18 01/21/18 18:59 06:59 18:59 Intake Total 200 1800 Output Total 875 1250 Balance -675 550 Weight 87.8 kg Intake: IV 100 1400 Mvi, Adult No.4 with Vit 100 700 K 10 ml Thiamine 100 mg Folic Acid 1 mg In Sodium Chloride 0.9% 1,000 ml @ 100 mls/hr IV .BY DURATION [facility] Rx#: [id number] Sodium Chloride 0.9% 1, 700 000 ml @ 100 mls/hr IV . Q10H [facility] Rx#:[id number] Intake, IV Titration 100 Amount Magnesium Sulfate-D5w Pmx 100 1 gm In Dextrose/Water 1 100ml.bag @ 100 mls/hr IVPB Q1H [facility] Rx#: [id number] Oral 400 Output: Urine 875 1250 Other: Voiding Method Urinal # Voids 2 - Exam GENERAL EXAM: Alert, comfortable in no apparent distress. HEAD: Normocephalic. EYES: Normal reaction of pupils, equal size. NOSE: Clear with pink turbinates. Ecchymosis related to fall THROAT: No erythema or exudates. NECK: No masses, no JVD. CHEST: No chest wall deformity. Right-sided anterior chest wall ecchymosis from recent fall LUNGS: Equal air entry with no crackles, wheeze, rhonchi or dullness. CVS: S1 and S2 normal with no audible mumurs, regular rhythm. ABDOMEN: No hepatosplenomegaly, normal bowel sounds, no guarding or rigidity. EXTREMITIES: No edema noted, pedal pulses palpable. CENTRAL NERVOUS SYSTEM: No focal deficits, tone is normal in all 4 extremities. tremors related to DTs - Labs CBC & Chem 7: 01/21/18 07:11 01/21/18 07:11 Labs: Abnormal Lab Results - Last 24 Hours (Table) 01/21/18 01/21/18 Range/Units 07:11 07:11 WBC 11.3 H (3.8-10.6) k/uL RBC 3.34 L (4.30-5.90) m/uL Hgb 11.1 L (13.0-17.5) gm/dL Hct 34.3 L (39.0-53.0) % MCV 102.7 H (80.0-100.0) fL Neutrophils # 8.6 H (1.3-7.7) k/uL Creatinine 0.64 L (0.66-1.25) mg/dL Magnesium 1.5 L (1.6-2.3) mg/dL Assessment and Plan Assessment: Assessment Acute alcohol intoxication Metabolic encephalopathy DTs with alcohol withdrawal Bronchospasms Acute respiratory failure Nasal bone fracture Hypomagnesemia EtOH dependency Nicotine dependency Plan Medications have been reviewed and will be continued as ordered. We will add IV phenobarbital. Continue with CIWA protocol and Ativan administration. Continue with pulmonary hygiene, coughing and deep breathing exercises, and supportive care. Supplemental oxygen to maintain oxygen saturations of 92% or better if needed. Continue nebulizer treatments. Seizure precautions. Continue to monitor and replace electrolytes. Smoking cessation and Alcohol abstinence discussed, patient with like more information on outpatient rehab resources.. Continue with MVI, folate and thiamine. Neurology, psych, ENT and ID on consult and appreciate recommendations. GI and DVT prophylaxis. At social work to help facilitate alcoholic rehab and resources. We will continue to monitor labs/results and adjust treatment as necessary. Further recommendations pending. I performed an examination of the patient and discussed their management with the nurse practitioner. I have reviewed the nurse practitioner's note and agree with the documented findings and plan of care.
[2018-01-21] MEDS: 1: MVI, ADULT NO.4 WITH VIT K 10 ML, THIAMINE 100 MG, FOLIC ACID 1 MG in SODIUM CHLORIDE IV SCH ×12 (10:17→13:15)
[2018-01-21] MEDS: PANTOPRAZOLE 40 MG/10 ML VIAL IVP SCH (10:19)
[2018-01-21] MEDS: NICOTINE 21MG/24HR PATCH TRANSDERM SCH (10:19)
[2018-01-21] MEDS: ceFAZolin 1,000 MG in DEXTROSE/WATER 1 50ML.BAG IVPB SCH (10:24)
[2018-01-21] MEDS: ACETAMINOPHEN TAB 325 MG TAB PO PRN (10:28)
--- NOTE | 2018-01-21 22:49 | PN ---
PROGRESS NOTE SUBJECTIVE: White male continues with delirium tremens, alcohol withdrawal. Also has moderate amount tremor. Vital signs stable. Afebrile. Cardiovascular S1, S2. Lungs clear. GI soft. Musculoskeletal tremor moderate. ASSESSMENT: 1. Delirium tremens, alcoholism, chronic alcohol withdrawal, depression, nasal fracture. 2. Continue alcohol protocol. 3. CIWA protocol. 4. Replace hypomagnesemia and electrolytes, etc. 5. Continue with fluids. 6. Advance diet. MMODL / IJN: [id number] /
--- NOTE | 2018-01-22 01:03 | CONS ---
CONSULTATION DATE OF SERVICE: 01/21/2018. REASON FOR CONSULTATION: Fever, elevated white count and need for antibiotic therapy. HISTORY OF PRESENT ILLNESS: The patient is a 52-year-old male with a past medical history significant for heavy drinking, brought into the ER at [facility] on 01/15/2018 after the patient got intoxicated with alcohol. Did have a fall hitting his nose. Brought into the ER with uncontrolled epistaxis. CT did show a nasal bone fracture and maxillary sinusitis. Chest x-ray was negative for acute cardiopulmonary process. The patient subsequently went into DTs and has been treated in the ICU with Phenobarb and Ativan. The patient was afebrile on presentation subsequently did have a low-grade fever of 100.5 on January 18 and the patient though white count was normal, elevated white count 11.3. He has been treated prophylactically with Cefazolin. I was asked to see the patient last night for further recommendation regarding antibiotic therapy. The patient seemed to be slowly recovering from his alcohol intoxication not specifically. His main symptom has been pain in the nasal Mohs area since his fall, more of a throbbing pain, 5 to 6/10, and no radiation. The patient denies any headache. No chest pain. No shortness of breath or cough. No abdominal pain. No nausea, vomiting, or any diarrhea. REVIEW OF SYSTEMS: Constitutional positive for weakness and low-grade fever that has resolved. Eyes: No complaint. ENT as per HPI. Respiratory no complaint. Cardiovascular no complaint. Genitourinary no complaint. Gastrointestinal: No complaint. Musculoskeletal as per HPI. Integumentary as per HPI. PSYCHOLOGICAL: No complaint. Endocrine: No complaint. Neurological as per HPI. PAST MEDICAL HISTORY: Significant for seizure disorder, syncope, COPD bipolar depression, anxiety. PAST SURGICAL HISTORY: Tonsillectomy and ear surgery, vocal cord scraping. SOCIAL HISTORY: Current everyday smoker and drinks about a 5th of vodka per day. Denies any drug use. FAMILY HISTORY: Father history of stomach cancer. Mother was living and healthy. Brother with bipolar schizophrenia. ALLERGIES: No known drug allergies. MEDICATION: Medications include the patient is currently on Tylenol, DuoNeb, Pulmicort, 1 Narcan, nicotine patch, Zofran, Protonix, cefazolin 2 g q8h. EXAMINATION: Blood pressure is 118/68 with a pulse of 81, temperature of 97.9, he is 95%. General description is a middle-aged male lying in bed in no distress. No tachypnea or accessory muscle of respiration use. HEENT examination supple. No scleral icterus. Oral mucosa membranes dry. No significant erythema or thrush. Nose is swollen with some bruise, but no redness. Neck trachea central. No thyromegaly. Lungs unlabored breathing, clear to auscultation anteriorly. No wheeze or crackle, heart S1, S2. Regular rate. No air source. ABDOMEN: Soft, no tenderness. No organomegaly. EXTREMITIES: No edema of the feet. Skin examination no rash or mass palpable neurological patient is awake, alert, oriented. Mood and affect normal. LABS: Hemoglobin is 11.1, white count of 10.3 with a BUN of 11, creatinine 0.64. Electrolytes have been normal. No culture has been done. X-ray was negative for any pneumonia. On admission, CT with nasal bone fracture. DIAGNOSTIC IMPRESSION AND PLAN: Patient with low-grade fever and now with mild elevated white count could be related to underlying DTs. Clinically with no evidence of any cellulitis or any active infection with the patient admitted to the hospital with alcohol intoxication and a fall but admission x-ray was negative for any aspiration process. The patient denies having any respiratory symptoms and no clear exam no findings on clinical examination of the lung as no clinical focus of infection. Recommend to watch the patient closely off antibiotic therapy. PLAN: 1. We will discontinue cefazolin as no clear focus of infection currently. 2. The patient to monitor closely off antibiotic therapy. If no fever or any worsening white count, he get a culture before starting him on antibiotic therapy. Thank you for this consultation. Will follow this patient along with you. Plan of care discussed with the nurse practitioner for the admitting team. MMODL / IJN: [id number] / CLARENCE
[2018-01-22] MEDS ORDERED: PANTOPRAZOLE 40 MG TABLET PO SCH (07:30)
[2018-01-22] MEDS: SODIUM CHLORIDE 0.9% 1,000 ML IV SCH ×2 (07:40→15:14)
[2018-01-22 07:46] LABS: Basophils % (A) 0 %; Eosinophils # (A) 0.2 k/uL (0-0.7); Eosinophils % (A) 2 %; HCT 30.9 % (39.0-53.0); Lymphocytes # (A) 1.4 k/uL (1.0-4.8); Lymphocytes % (A) 17 %; MCH 33.3 pg (25.0-35.0); MCHC 32.5 g/dL (31.0-37.0); MCV 102.6 fL (80.0-100.0); Macrocytosis Slight; Mean Platelet Volume 8.2; Monocytes # (A) 0.8 k/uL (0-1.0); Monocytes % (A) 10 %; Neutrophils # (A) 5.7 k/uL (1.3-7.7); Neutrophils % (A) 69 %; Platelet Count 228 k/uL (150-450); RBC 3.01 m/uL (4.30-5.90); RDW 14.1 % (11.5-15.5); WBC 8.2 k/uL (3.8-10.6)
[2018-01-22] MEDS: NICOTINE 21MG/24HR PATCH TRANSDERM SCH (07:58)
[2018-01-22 08:18] LABS: ALT 44 U/L (21-72); AST 59 U/L (17-59); Albumin 3.6 g/dL (3.5-5.0); Alkaline Phosphatase 59 U/L (38-126); Anion Gap 8 mmol/L; Blood Urea Nitrogen 9 mg/dL (9-20); Calcium 8.7 mg/dL (8.4-10.2); Carbon Dioxide 28 mmol/L (22-30); Chloride 105 mmol/L (98-107); Glucose 103 mg/dL (74-99); Magnesium 1.2 mg/dL (1.6-2.3); Potassium 3.4 mmol/L (3.5-5.1); Sodium 141 mmol/L (137-145); Total Bilirubin 0.4 mg/dL (0.2-1.3); Total Protein 6.3 g/dL (6.3-8.2)
[2018-01-22] MEDS: ACETAMINOPHEN TAB 325 MG TAB PO PRN (09:02)
--- NOTE | 2018-01-22 09:03 | P.CN ---
Psychiatric Consult - . Consult date: 01/22/18 Consult:: 01/22/18 08:53 Patient was seen for a psych consult regarding his alcoholism management and possible suicide ideas. Patient has a long history of alcoholism and according to him he has been drinking heavily for the last 4-5 years, his drink of choice is Vodka, he had several problems related to alcoholism including DUI,PI, loss of job problem with interpersonal relationship etc. he also reports off tingling sensation off his extremities and difficulty in ambulation. He denies abusing drugs he denies any psychiatric issues. He does not see a psychiatrist and does not take any psychiatric medications. He plans on seeking outpatient alcohol counseling. This is a white male who appears to be overweight and is unshaven. He was seen lying down in his bed he is friendly and cheerful and cooperative he has fine hand tremors he does not show any psychomotor agitation or retardation his speech is spontaneous relevant and goal-directed. His mood is cheerful and affect is appropriate. He denies hallucinations delusional thinking suicidal and homicidal ideas. He said today is when it is actually Sunday. But he knows the name of this place. His insight appears to be adequate. His judgment has been rather poor as evidenced by his continued alcohol abuse falling down breaking his nose etc. However he plans on seeking outpatient treatment for alcoholism which is appropriate. His memory and concentration etc. are adequate. Assessment: Alcohol use disorder severe F 10.20. 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 Probable alcohol-induced macrocytic anemia. He does not appear to be at any risk for suicide or homicide at this time. Suggestion: I agree with his plan to seek outpatient alcohol treatment. I recommend vitamin B1 100 mg by mouth daily for his alcohol-related conditions.
[2018-01-22] MEDS: IPRATROPIUM-ALBUTEROL 3 ML NEB INHALATION SCH ×3 (09:13→16:08)
[2018-01-22] MEDS: BUDESONIDE 0.5 MG/2 ML NEBU INHALATION SCH (09:13)
--- NOTE | 2018-01-22 09:33 | P.PN ---
Subjective Progress Note Date: 01/22/18 Patient is being seen and examined and evaluated on rounds. He is resting in bed on room air. He states his shortness of breath with exertion has been improving. Denies any cough or congestion at this time. He is noted to continue to have some tremors related to alcohol withdrawal and has been on CIWA protocol and receiving Ativan. He has not received Ativan since last night. Patient states he would like to possibly pursue an outpatient rehab for his chronic alcohol abuse. Social work has given the patient resources for alcohol abuse and abstinence. He is afebrile no further complaints. Infectious disease was consult that to evaluate the patient for antibiotics if needed and he states the patient does not need antibiotics at this time. Objective - Vital Signs Vital signs: Vital Signs Temp 98.5 F 01/22/18 07:00 Pulse 88 01/22/18 09:25 Resp 18 01/22/18 07:00 BP 143/79 01/22/18 07:00 Pulse Ox 96 01/22/18 07:00 Intake & Output 01/21/18 01/22/18 01/22/18 18:59 06:59 18:59 Intake Total 850 Output Total 250 Balance 600 Weight 70.5 kg Intake: IV 400 Mvi, Adult No.4 with Vit 400 K 10 ml Thiamine 100 mg Folic Acid 1 mg In Sodium Chloride 0.9% 1,000 ml @ 100 mls/hr IV .BY DURATION [facility] Rx#: [id number] Oral 450 Output: Urine 250 Other: Voiding Method Incontinent Urinal Incontinent # Voids 3 1 - Exam GENERAL EXAM: Alert, comfortable in no apparent distress. HEAD: Normocephalic. EYES: Normal reaction of pupils, equal size. NOSE: Clear with pink turbinates. Ecchymosis related to fall THROAT: No erythema or exudates. NECK: No masses, no JVD. CHEST: No chest wall deformity. Right-sided anterior chest wall ecchymosis from recent fall LUNGS: Equal air entry with no crackles, wheeze, rhonchi or dullness. CVS: S1 and S2 normal with no audible mumurs, regular rhythm. ABDOMEN: No hepatosplenomegaly, normal bowel sounds, no guarding or rigidity. EXTREMITIES: No edema noted, pedal pulses palpable. CENTRAL NERVOUS SYSTEM: No focal deficits, tone is normal in all 4 extremities. tremors related to DTs - Labs CBC & Chem 7: 01/22/18 07:29 01/22/18 07:29 Labs: Abnormal Lab Results - Last 24 Hours (Table) 01/22/18 01/22/18 Range/Units 07:29 07:29 RBC 3.01 L (4.30-5.90) m/uL Hgb 10.0 L (13.0-17.5) gm/dL Hct 30.9 L (39.0-53.0) % MCV 102.6 H (80.0-100.0) fL Potassium 3.4 L (3.5-5.1) mmol/L Creatinine 0.61 L (0.66-1.25) mg/dL Glucose 103 H (74-99) mg/dL Magnesium 1.2 L (1.6-2.3) mg/dL Assessment and Plan Assessment: Assessment Acute alcohol intoxication Metabolic encephalopathy DTs with alcohol withdrawal Bronchospasms Acute respiratory failure Nasal bone fracture Hypomagnesemia EtOH dependency Nicotine dependency Plan Patient could be cleared from a pulmonary standpoint in the near future. Medications have been reviewed and will be continued as ordered. Continue with CIWA protocol and Ativan administration as needed. Replace electrolytes per protocol. Continue with pulmonary hygiene, coughing and deep breathing exercises, and supportive care. Supplemental oxygen to maintain oxygen saturations of 92% or better if needed. Continue nebulizer treatments. Seizure precautions. Smoking cessation and Alcohol abstinence discussed, patient was given outpatient rehab resources.. Continue with MVI, folate and thiamine. GI and DVT prophylaxis. Social work was able to help facilitate alcoholic rehab and resources. We will continue to monitor labs/results and adjust treatment as necessary. Further recommendations pending. I performed an examination of the patient and discussed their management with the nurse practitioner. I have reviewed the nurse practitioner's note and agree with the documented findings and plan of care.
[2018-01-22] MEDS ORDERED: Potassium Replacement Protocol 1 EACH MISC MISCELLANE PRN ×2 (09:50→11:03)
[2018-01-22] MEDS ORDERED: Magnesium Replacement Protocol 1 EACH MISC MISCELLANE PRN (09:51)
[2018-01-22] MEDS: MAGNESIUM SULFATE-D5W PMX 1 GM in DEXTROSE/WATER 1 100ML.BAG IVPB SCH ×3 (10:48→14:32)
[2018-01-22] MEDS: POTASSIUM CHLORIDE 10 MEQ in WATER FOR INJECTION 1 100ML.BAG IVPB SCH ×3 (10:48→14:26)
[2018-01-22] MEDS: 1: MVI, ADULT NO.4 WITH VIT K 10 ML, THIAMINE 100 MG, FOLIC ACID 1 MG in SODIUM CHLORIDE IV SCH ×4 (10:49)
[2018-01-22] MEDS: POTASSIUM CHLORIDE ER 20 MEQ TAB.ER PO SCH ×2 (11:26→12:33)
[2018-01-22] MEDS ORDERED: THIAMINE 100 MG TAB PO SCH (12:00)
[2018-01-22 13:05] VITALS: RESP 19
--- NOTE | 2018-01-22 14:20 | PN ---
PROGRESS NOTE DATE OF SERVICE: 01/22/2018 REASON FOR FOLLOWUP: Fever and leukocytosis, likely reactive. INTERVAL HISTORY: The patient is afebrile, has been breathing comfortably. Denies having any chest pain, shortness of breath or cough. No abdominal pain or any diarrhea. PHYSICAL EXAMINATION: Blood pressure 143/79 with a pulse of 85, temperature 98.5. He is 96% on room air. General description is a middle-aged male, lying in bed in no distress. RESPIRATORY SYSTEM: Unlabored breathing, clear to auscultation anteriorly. HEART: S1, S2. Regular rate and rhythm. ABDOMEN: Soft, no tenderness. LABS: Hemoglobin 10, white count of 8.2, BUN of 9, creatinine 0.61. DIAGNOSTIC IMPRESSION AND PLAN: Patient with low-grade fever. Did have elevated white count, more likely reactive in a patient who did have possible DT and tremor with a nasal bone fracture. No evidence of any cellulitis. The patient was taken off antibiotic yesterday with no recurrence of fever or any jump in the white count; however, his white count normalized. There is no need for antibiotic therapy. ID with sign off. MMODL / IJN: [id number] /
[2018-01-22 16:41] VITALS: BP 134/86; PULSE 101; TEMP 98.4
--- NOTE | 2018-02-17 19:28 | DS ---
DISCHARGE SUMMARY DATE OF ADMISSION: 01/17/2018. DATE OF DISCHARGE: 01/22/2018. HOME MEDICINES: Ibuprofen 600 q.6 hours p.r.n. CONDITION: Stable. PROGNOSIS: Guarded. Ambulate as tolerated. HOSPITAL COURSE OF EVENTS: A white male came in with significant alcohol withdrawal and delirium tremens. Neurology was consulted. Pulmonary was consulted. He was placed on CIWA protocol. Restraints for multiple days and is totally out of control. He had active delirium tremens. He is on CIWA protocol. He is worried about his divorce and hallucinating and phenobarbital was given as well as Ativan. Psychiatry does not want the patient in the psych kelly. Said he was stable to go home. He had reactive leukocytosis secondary to his delirium tremens. Alcohol cessation counseling was given to the patient. ENT saw him for nasal bone fracture. Will follow up as an outpatient. He will follow up with alcohol withdrawal counseling and inpatient at [place] that he hooked up on his own he states. Cleared by Neurology for discharge as well as Psychiatry. MMODL / IJN: [id number] /
== END 2018-01-22 18:15 | disposition home or self-care (01) | DRG 896 ==
LOC: EC 21:36 → 3OBS 01-16 00:18 → OBSVTOIN 01-17 11:52 → 5MS5E 01-17 15:00 → 6ICU 01-18 11:42 → 5MS5E 01-20 12:37
PROVIDERS: ADMIT Family Medicine; ATTEND Family Medicine
DX: F10.221 Alcohol dependence with intoxication delirium (principal); G93.41 Metabolic encephalopathy; E83.42 Hypomagnesemia; G62.1 Alcoholic polyneuropathy; Z78.1 Physical restraint status; D72.829 Elevated white blood cell count, unspecified; E16.2 Hypoglycemia, unspecified; S00.83XA Contusion of other part of head, initial encounter; F10.231 Alcohol dependence with withdrawal delirium; E87.6 Hypokalemia; F17.200 Nicotine dependence, unspecified, uncomplicated; G40.909 Epilepsy, unspecified, not intractable, without status epilepticus; J32.0 Chronic maxillary sinusitis; J32.2 Chronic ethmoidal sinusitis; J44.9 Chronic obstructive pulmonary disease, unspecified; J98.01 Acute bronchospasm; K21.9 Gastro-esophageal reflux disease without esophagitis; T42.4X5A Adverse effect of benzodiazepines, initial encounter; S02.2XXA Fracture of nasal bones, initial encounter for closed fracture; S20.219A Contusion of unspecified front wall of thorax, initial encounter; F41.9 Anxiety disorder, unspecified; M54.5 Low back pain; R00.1 Bradycardia, unspecified; R26.9 Unspecified abnormalities of gait and mobility; F32.9 Major depressive disorder, single episode, unspecified; G89.29 Other chronic pain; M54.2 Cervicalgia; R04.0 Epistaxis; R45.1 Restlessness and agitation; R53.83 Other fatigue; Z71.41 Alcohol abuse counseling and surveillance of alcoholic; Z71.6 Tobacco abuse counseling; W19.XXXA Unspecified fall, initial encounter; Y92.009 Unspecified place in unspecified non-institutional (private) residence as the place of occurrence of the external cause; Y90.8 Blood alcohol level of 240 mg/100 ml or more; Y92.239 Unspecified place in hospital as the place of occurrence of the external cause
CPT/HCPCS: 36415; 70450; 71045; 72125; 80048; 80053; 80306; 80320; 82075; 82553; 83735; 85025; 85610; 94640; 96365; 96366; 99285

== ENCOUNTER 2018-02-02 17:08 | Emergency (ER) | payer OTHER ==
[2018-02-02 17:15] VITALS: RESP 18
--- NOTE | 2018-02-02 18:54 | CT ---
EXAMINATION TYPE: CT brain cspine wo con DATE OF EXAM: 02/02/2018 COMPARISON: CT brain and cervical spine January 15, 2018 HISTORY: Patient poor historian. Patient complains of frequent falls, neck pain, and headache at zuleima e of exam. Chronic alcohol abuse. CT DLP: 1651 mGycm. Automated Exposure Control for Dose Reduction was Utilized. TECHNIQUE: CT scan of the head and cervical spine are performed without contrast. FINDINGS: There is no acute intracranial hemorrhage or midline shift identified. There is ventricul ar and sulcal prominence consistent with mild diffuse age-related cerebral atrophy. The calvarium is intact. There is persistent patchy opacification right maxillary sinus improved from prior. The left maxillary sinus is clear on current study. There is old fracture deformity through the nasal bones r edemonstrated. Cervical spine is visualized in its entirety from C1 through upper thoracic levels and demonstrates s atisfactory alignment without evidence of acute fracture or dislocation. Prevertebral soft tissue ap pears within normal limits. The C1-C2 articulation is within normal limits on the coronal images. Vertebral body heights are maintained. There is mild disc space narrowing C5-C6 and C6-C7 levels. Spi nal canal is preserved. Axial images demonstrate uncovertebral facet arthropathy right C4-C5 and C5-C 6 levels. Posterior disc herniation effaces the anterior thecal sac C5-C6 level. There is suboptimal evaluation of lower cervical levels due to patient's body habitus. Thyroid gland is felt within luigi l limits. Lung apices are clear. IMPRESSION: 1. There is no acute fracture or dislocation evident in the cervical spine. 2. No acute intracranial hemorrhage or midline shift is seen. Possible persistent acute right maxilla ry sinus disease though this is improved from recent prior.
--- NOTE | 2018-02-02 19:29 | XR ---
EXAMINATION TYPE: XR ribs LT w pa chest xray DATE OF EXAM: 02/02/2018 CLINICAL HISTORY: Chest and left-sided rib pain after fall injury 2 days ago. TECHNIQUE: Single frontal view of the chest is obtained. A frontal and oblique images the left-sided ribs are acquired. COMPARISON: Chest x-ray January 15, 2018 FINDINGS: There is chronic parenchymal change without suspicious focal air space opacity, pleural ef fusion, or pneumothorax seen. The cardiac silhouette size is within normal limits. The osseous str uctures are intact. Dedicated images the left-sided ribs show acute minimally displaced fractures through anterolateral l eft seventh and eighth ribs is suspected old healed fracture posterior lateral left sixth rib. Visual ized left lung is clear. Overlying soft tissues unremarkable. IMPRESSION: 1. No acute cardiopulmonary process. 2. Acute minimally displaced fractures involving left anterolateral seventh and eighth ribs.
--- NOTE | 2018-02-02 19:31 | ED ---
General Adult HPI - General Chief complaint: Fall Stated complaint: fall at home 2 days ago Time Seen by Provider: 02/02/18 17:48 Source: patient, EMS, RN notes reviewed, old records reviewed Mode of arrival: EMS Limitations: no limitations - History of Present Illness Initial comments: Chief complaint and history of present illness a 52-year-old male, chronic alcoholic. Reports she fell 2 days ago and home while drinking. Complains left rib cage pain. Does not think he hit his head denies complaint of headache or neck pain. Last month he broke his nose. - Related Data Home Medications Medication Instructions Recorded Confirmed Ibuprofen [Motrin Ib] 600 mg PO Q6H PRN 01/15/18 02/02/18 Previous Rx's Medication Instructions Recorded Hydrocodone/Acetaminophen [[place] 1 each PO Q6HR PRN #10 tab 02/02/18 5-325] Allergies Allergy/AdvReac Type Severity Reaction Status Date / Time No Known Allergies Allergy Verified 02/02/18 17:20 Review of Systems ROS Statement: Those systems with pertinent positive or pertinent negative responses have been documented in the HPI. Review of systems. Patient denying headache or visual acuity changes he is alert and able to say who he is where he is and what time it is. Denies neck pain. Has left sided rib cage pain. No bruises on the left but he has an old bruise which was noted on previous admission last month on the right breast area. Denies any back pain. No abdominal pain. No lower extremity pain. The patient is very unkempt. All systems were reviewed. Past medical problems ROS Other: All systems not noted in ROS Statement are negative. Past Medical History Past Medical History: COPD, GERD/Reflux, Seizure Disorder, Syncope Additional Past Medical History / Comment(s): ETOH abuse 4years, syncope with seizure related to alcohol withdrawal and delerium tremors, thrombocytopenia, hyponatremia, increased AST and ALT and increased random blood sugars, gait dysfunction and encephalopathy. 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 He is alive. Mother Family Medical History: No Reported History Additional Family Medical History / Comment(s): Mother is living and is healthy Brother(s) Additional Family Medical History / Comment(s): Bipolar, schizoprenia General Exam - General Exam Comments Initial Comments: General: The patient is awake, patient called the ambulance because of left rib cage pain which she says started after falling 2 days ago. Patient reports drink alcohol daily. Patient denying head or neck injury. The patient's vital signs are temperature 98.2, pulse 68 respiratory rate 18 pulse ox 94% on room air blood pressure 114/68 Eye: Pupils are equal, round and reactive to light, extra-ocular movements are intact ; there is normal conjunctiva bilaterally. No signs of icterus. Ears, nose, mouth and throat: There are moist mucous membranes and no oral lesions. Neck: The neck is supple, no neck pain Cardiovascular: There is a regular rate and rhythm. No murmur, rub or gallop is appreciated. Respiratory: Lungs are clear to auscultation, respirations are non-labored, breath sounds are equal. No wheezes, stridor, rales, or rhonchi. Mild tenderness to the left lateral rib cage. No bruising noted. There is a old bruise noted on the right breast area. Gastrointestinal: Soft, non-distended, non-tender abdomen without masses or organomegaly noted. There is no rebound or guarding present. No CVA tenderness. Bowel sounds are unremarkable. No pain with deep palpation to the left upper quadrant. Spleen not palpable. No left upper quadrant pain no left shoulder pain. No difficulty breathing. Back: There is no tenderness to palpation in the midline. There is no obvious deformity. No rashes noted. Musculoskeletal: Normal ROM, no tenderness, There is no pedal edema. There is no calf tenderness or swelling. Sensation intact. Pulses equal bilaterally 2+. Neurological: No neuro deficits Skin: Skin is warm and dry and no rashes or lesions are noted. Psychiatric: Chronic alcohol abuse. Patient encouraged to follow-up with rehab. Limitations: no limitations Course Vital Signs 02/02/18 17:12 Temperature 98.2 F Pulse Rate 68 Respiratory 18 Rate Blood Pressure 114/68 O2 Sat by Pulse 94 L Oximetry Medical Decision Making - Medical Decision Making Medical decision making; a 52-year-old male comes emergency room because of pain to his left rib cage. The patient's a chronic alcoholic. He states 2 days ago he fell while drinking and denies bumping his head. He does complain discomfort to his left rib cage. Patient's been emergency room multiple times for frequent falls. Continues to drink a pint of liquor daily. CT of the brain and cervical spine was done because of the frequency that the patient falls. The entire report was reviewed final impression reported here to 1 there is no acute fracture dislocation evident in the cervical spine. #2 no acute intracranial hemorrhage or midline shift is seen. Possible persistent acute right maxillary sinus disease though this is improved from recent prior. As read by Dr. fried. Left rib series is done and reviewed by radiologist his report was reviewed; impression no acute cardiopulmonary process. #2 acute minimally displaced fractures involving the left anterolateral seventh and eighth ribs. As read by Dr. fried Disposition Clinical Impression: Left rib fracture, Chronic alcohol abuse Disposition: HOME SELF-CARE Condition: Fair Instructions: Rib Fracture (ED), Abuse of Alcohol (ED) Additional Instructions: Take advantage of local rehabilitation centers as provided and consider admitting yourself for alcohol rehabilitation. Use medications as directed for rib fractures. Stop drinking alcohol stop smoking. Prescriptions: Hydrocodone/Acetaminophen [[place] 5-325] 1 each PO Q6HR PRN #10 tab PRN Reason: Pain Referrals: Jamarcus Duque MD [Primary Care Provider] - 1-2 days Time of Disposition: 19:47
[2018-02-02] MEDS ORDERED: IBUPROFEN 600 MG STARTER PACK 4 TAB BTL PO STA (19:41)
[2018-02-02 20:59] VITALS: BP 115/70; PULSE 73; TEMP 98
== END 2018-02-02 21:00 | disposition home or self-care (01) ==
LOC: EC 17:08
DX: S22.42XA Multiple fractures of ribs, left side, initial encounter for closed fracture (principal); F10.10 Alcohol abuse, uncomplicated; F17.200 Nicotine dependence, unspecified, uncomplicated; W19.XXXA Unspecified fall, initial encounter
CPT/HCPCS: 70450; 72125; 99285

== ENCOUNTER 2018-02-06 03:36 | Inpatient (IN) | payer OTHER ==
[2018-02-06] MEDS ORDERED: LORazepam 2 MG/ML INJ IV STA (03:52)
[2018-02-06] MEDS ORDERED: SODIUM CHLORIDE 0.9% 1,000 ML IV STA (03:53)
[2018-02-06] MEDS ORDERED: PHENYTOIN SODIUM INJ 1,000 MG in SODIUM CHLORIDE 0.9% 100 ML IVPB STA (03:53)
[2018-02-06 03:55] LABS: Glucose,Whole Blood 167 mg/dL (75-99)
--- NOTE | 2018-02-06 04:04 | ED ---
Seizure HPI - General Chief Complaint: Seizure Stated Complaint: poss seizure Time Seen by Provider: 02/06/18 03:41 Source: patient, EMS Mode of arrival: EMS Limitations: no limitations - History of Present Illness Initial Comments: 55 years old gentleman brought in by EMS for the seizure-like activity, on arrival he had a full tonic-clonic seizure in the ER, here with was supposed to seizure lasted about 1.5 minutes, Ativan 2 mg IV helped him, reviewed his past medical history he had several hospital visits related to his alcohol use and dependence he also noticed some documentation regarding his seizures in the past. Review of system is not available because and arrival he is post ictal - Related Data Home Medications Medication Instructions Recorded Confirmed Ibuprofen [Motrin Ib] 600 mg PO Q6H PRN 01/15/18 02/06/18 Previous Rx's Medication Instructions Recorded Hydrocodone/Acetaminophen [[place] 1 each PO Q6HR PRN #10 tab 02/02/18 5-325] Allergies Allergy/AdvReac Type Severity Reaction Status Date / Time No Known Allergies Allergy Verified 02/02/18 17:20 Review of Systems ROS Statement: Those systems with pertinent positive or pertinent negative responses have been documented in the HPI. ROS Other: All systems not noted in ROS Statement are negative. Past Medical History Past Medical History: COPD, GERD/Reflux, Seizure Disorder, Syncope Additional Past Medical History / Comment(s): ETOH abuse 4years, syncope with seizure related to alcohol withdrawal and delerium tremors, thrombocytopenia, hyponatremia, increased AST and ALT and increased random blood sugars, gait dysfunction and encephalopathy. 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 He is alive. Mother Family Medical History: No Reported History Additional Family Medical History / Comment(s): Mother is living and is healthy Brother(s) Additional Family Medical History / Comment(s): Bipolar, schizoprenia General Exam - General Exam Comments Initial Comments: General: The patient was actively seizing in his phone in the ER Skin: Skin is warm and dry and no rashes or lesions are noted. Eye: Pupils are equal, round and reactive to light, extra-ocular movements are intact; there is normal conjunctiva bilaterally. Ears, nose, mouth and throat: There are moist mucous membranes and no oral lesions. Neck: The neck is supple, there is no tenderness or JVD. Cardiovascular: There is a regular rate and rhythm. No murmur, rub or gallop is appreciated. Respiratory: To auscultation bilateral, noticed 30 poor air exchange, suspect aspiration Gastrointestinal: Soft, non-distended, non-tender abdomen without masses or organomegaly noted. There is no rebound or guarding present. Bowel sounds are unremarkable. Back: There is no tenderness to palpation in the midline. There is no obvious deformity. Musculoskeletal: Normal ROM, no tenderness, There is no pedal edema. There is no calf tenderness or swelling. No cords were appreciated. Neurological: CN II-XII intact, Cranial nerves III through XII are intact. There are no obvious motor or sensory deficits. Coordination appears grossly intact. Speech is normal. Psychiatric: Cooperative, appropriate mood & affect, normal judgment. Limitations: no limitations Course Vital Signs 02/06/18 02/06/18 03:39 06:22 Temperature 97.6 F Pulse Rate 78 103 H Respiratory 20 Rate Blood Pressure 138/91 O2 Sat by Pulse 90 L Oximetry EKG is normal sinus rhythm ventricular rate is 91 NM interval is 176 QRS duration is 120 QT/QTc is 374/460 review of this EKG reveals no ST elevation or ST depression noticed Medical Decision Making - Lab Data Result diagrams: 02/06/18 03:50 02/06/18 03:50 Lab Results 02/06/18 02/06/18 02/06/18 Range/Units 03:50 03:50 03:52 WBC 8.0 (3.8-10.6) k/uL RBC 3.05 L (4.30-5.90) m/uL Hgb 9.7 L (13.0-17.5) gm/dL Hct 28.4 L (39.0-53.0) % MCV 93.0 D (80.0-100.0) fL MCH 31.8 (25.0-35.0) pg MCHC 34.2 (31.0-37.0) g/dL RDW 14.0 (11.5-15.5) % Plt Count 177 (150-450) k/uL Neutrophils % 83 % Lymphocytes % 11 % Monocytes % 5 % Eosinophils % 1 % Basophils % 0 % Neutrophils # 6.6 (1.3-7.7) k/uL Lymphocytes # 0.8 L (1.0-4.8) k/uL Monocytes # 0.4 (0-1.0) k/uL Eosinophils # 0.1 (0-0.7) k/uL Basophils # 0.0 (0-0.2) k/uL Sample Site ABG pH (7.35-7.45) ABG pCO2 (35-45) mmHg ABG pO2 (83-108) mmHg ABG HCO3 (21-25) mmol/L ABG Total CO2 (19-24) mmol/L ABG O2 Saturation (94-97) % ABG Base Excess mmol/L Lul Test FiO2 % Sodium 123 L (137-145) mmol/L Potassium 3.8 (3.5-5.1) mmol/L Chloride 85 L (98-107) mmol/L Carbon Dioxide 26 (22-30) mmol/L Anion Gap 12 mmol/L BUN 12 (9-20) mg/dL Creatinine 0.60 L (0.66-1.25) mg/dL Est GFR (CKD-EPI)AfAm >90 (>60 ml/min/1.73 sqM) Est GFR (CKD-EPI)NonAf >90 (>60 ml/min/1.73 sqM) Glucose 141 H (74-99) mg/dL POC Glucose (mg/dL) 167 H (75-99) mg/dL POC 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 [place], [place] Calcium 11.7 H (8.4-10.2) mg/dL Total Bilirubin 0.9 (0.2-1.3) mg/dL AST 75 H (17-59) U/L ALT 46 (21-72) U/L Alkaline Phosphatase 66 (38-126) U/L Total Protein 7.0 (6.3-8.2) g/dL Albumin 4.1 (3.5-5.0) g/dL Serum Alcohol <10 mg/dL 02/06/18 Range/Units 06:01 WBC (3.8-10.6) k/uL RBC (4.30-5.90) m/uL Hgb (13.0-17.5) gm/dL Hct (39.0-53.0) % MCV (80.0-100.0) fL MCH (25.0-35.0) pg MCHC (31.0-37.0) g/dL RDW (11.5-15.5) % Plt Count (150-450) k/uL Neutrophils % % Lymphocytes % % Monocytes % % Eosinophils % % Basophils % % Neutrophils # (1.3-7.7) k/uL Lymphocytes # (1.0-4.8) k/uL Monocytes # (0-1.0) k/uL Eosinophils # (0-0.7) k/uL Basophils # (0-0.2) k/uL Sample Site Left Radial ABG pH 7.47 H (7.35-7.45) ABG pCO2 39 (35-45) mmHg ABG pO2 59 L (83-108) mmHg ABG HCO3 28 H (21-25) mmol/L ABG Total CO2 29 H (19-24) mmol/L ABG O2 Saturation 89.0 L (94-97) % ABG Base Excess 4.6 mmol/L Lul Test Yes FiO2 50 % Sodium (137-145) mmol/L Potassium (3.5-5.1) mmol/L Chloride (98-107) mmol/L Carbon Dioxide (22-30) mmol/L Anion Gap mmol/L BUN (9-20) mg/dL Creatinine (0.66-1.25) mg/dL Est GFR (CKD-EPI)AfAm (>60 ml/min/1.73 sqM) Est GFR (CKD-EPI)NonAf (>60 ml/min/1.73 sqM) Glucose (74-99) mg/dL POC Glucose (mg/dL) (75-99) mg/dL POC 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 Calcium (8.4-10.2) mg/dL Total Bilirubin (0.2-1.3) mg/dL AST (17-59) U/L ALT (21-72) U/L Alkaline Phosphatase (38-126) U/L Total Protein (6.3-8.2) g/dL Albumin (3.5-5.0) g/dL Serum Alcohol mg/dL Critical Care Time Total Critical Care Time: 60 Critical Care Time: Arrival patient was seizing he sees for about 1.5 minutes after that he had prolonged postictal state where he dropped his O2 sat O2 sat in spite of oxygen support never went above low 80s, at that point we did the portable x-ray portable x-ray was unremarkable, BiPAP was started BiPAP and ABGs were done ABGs were not quite impressive the BiPAP did improve his oxygenation, and Dilantin 1 g IV was given a loading dose and when necessary Ativan 1-2 mg was used to for seizure, also noticed that his sodium was quite low sodium is 123 chloride was 85 serum alcohol was less than 10 there is a possibility that could be alcohol induced seizure though he will be admitted to Dr. Jamarcus Duque and Dr. Velazquez is currently look in after his respiratory status Disposition Clinical Impression: Seizure disorder, Respiratory failure, Hyponatremia Disposition: ADMITTED IP TO THIS HOSP Condition: Good Referrals: Jamarcus Duque MD [Primary Care Provider] - 1-2 days
[2018-02-06 04:06] LABS: Basophils % (A) 0 %; Eosinophils # (A) 0.1 k/uL (0-0.7); Eosinophils % (A) 1 %; HCT 28.4 % (39.0-53.0); HGB 9.7 gm/dL (13.0-17.5); Lymphocytes # (A) 0.8 k/uL (1.0-4.8); Lymphocytes % (A) 11 %; MCH 31.8 pg (25.0-35.0); MCHC 34.2 g/dL (31.0-37.0); Mean Platelet Volume 8.4; Monocytes # (A) 0.4 k/uL (0-1.0); Monocytes % (A) 5 %; Neutrophils # (A) 6.6 k/uL (1.3-7.7); Neutrophils % (A) 83 %; Platelet Count 177 k/uL (150-450); RBC 3.05 m/uL (4.30-5.90)
[2018-02-06 04:18] LABS: ALT 46 U/L (21-72); AST 75 U/L (17-59); Albumin 4.1 g/dL (3.5-5.0); Alcohol <10 mg/dL; Alkaline Phosphatase 66 U/L (38-126); Anion Gap 12 mmol/L; Blood Urea Nitrogen 12 mg/dL (9-20); Calcium 11.7 mg/dL (8.4-10.2); Carbon Dioxide 26 mmol/L (22-30); Chloride 85 mmol/L (98-107); Glucose 141 mg/dL (74-99); Potassium 3.8 mmol/L (3.5-5.1); Sodium 123 mmol/L (137-145); Total Bilirubin 0.9 mg/dL (0.2-1.3)
--- NOTE | 2018-02-06 05:07 | CT ---
EXAM: CT Head Without Intravenous Contrast CLINICAL HISTORY: Seizure Reason: seizure activity TECHNIQUE: Axial computed tomography images of the head/brain without intravenous contrast. CTDI is 57.40 mGy and DLP is 1012.70 mGy-cm. This CT exam was performed using one or more of the following dose reduction techniques: automated exposure control, adjustment of the mA and/or kV according to patient size, and/or use of iterative reconstruction technique. COMPARISON: CT head on 02/02/2018 FINDINGS: Brain: No acute infarct or hemorrhage. No extra-axial fluid collection. No mass effect or midline shift. Stable mild cerebral volume loss. Ventricles and sulci: No ventriculomegaly or intraventricular hemorrhage. Skull: Stable chronic fracture deformities of the nasal bones. No bony lesion or new fracture. Subcutaneous tissues: Normal. Sinuses: Slightly increased mucosal thickening in the right maxillary sinus. Mastoid air cells: Normal. Orbits: Grossly unremarkable. IMPRESSION: No acute intracranial abnormality. Stable mild cerebral volume loss.
[2018-02-06] MEDS ORDERED: ALBUTEROL NEBULIZED 2.5 MG/3 ML INHALATION STA (05:38)
--- NOTE | 2018-02-06 05:58 | XR ---
EXAM: XR Chest, 1 View CLINICAL HISTORY: ITS.REASON XR Reason: Pain TECHNIQUE: Frontal view of the chest. COMPARISON: 01/15/2018 FINDINGS: Lungs: Unremarkable. No consolidation. Pleural space: Unremarkable. No pneumothorax. Heart: Unremarkable. No cardiomegaly. Mediastinum: Unremarkable. Bones/joints: Unremarkable. IMPRESSION: No acute radiographic findings.
[2018-02-06 06:07] LABS: ABG Base Excess 4.6 mmol/L; ABG HCO3 28 mmol/L (21-25); ABG PCO2 39 mmHg (35-45); ABG PH 7.47 (7.35-7.45); ABG PO2 59 mmHg (83-108); ABG TCO2 29 mmol/L (19-24)
[2018-02-06] MEDS ORDERED: NALOXONE 0.4 MG/ML 1 ML VIAL IV PRN (07:11)
[2018-02-06] MEDS ORDERED: ONDANSETRON 4 MG/2 ML VIAL IVP PRN (07:11)
[2018-02-06] MEDS ORDERED: THIAMINE 100 MG/ML 2 ML VIAL IM STA (07:11)
[2018-02-06] MEDS ORDERED: cefTRIAXone IN SWFI 2,000 MG/20 ML SYRINGE IVP STA (07:15)
--- NOTE | 2018-02-06 11:16 | P.CNPUL ---
<Judith Singletary E - Last Filed: 02/06/18 13:24> History of Present Illness Consult date: 02/06/18 Requesting physician: Jamarcus Duque Reason for consult: hypoxemia Chief complaint: Shortness of breath History of present illness: This is a 52-year-old male patient who came into the emergency room with seizure -like activity. He had full tonic-clonic seizures in the emergency room that lasted approximately 1.5 minutes and was witnessed. Patient was given Ativan 2 mg which did help him. This patient is well-known to our services and has had recent hospitalizations related to his alcohol use and DVTs. After the patient was postictal his pulse ox dropped to the low 80s despite given oxygen. The patient was started on BiPAP and ABGs were completed. The patient did respond well to the BiPAP. Patient also was noted to have a serum sodium of 123 and a chloride of 85. Serum alcohol was less than 10. The patient states that he drank 1 pint of vodka yesterday. And then he drinks approximately 1 pint of liquor per day. Upon examination the patient is resting up in bed on BiPAP, noted to have some mild tremors. He is oxygen sats are now in the mid 90s currently. He is maintained on CIWA protocol and getting Ativan as needed. She did receive a 1 L bolus upon arrival to the emergency room. Maintenance IV fluids will be ordered. Chest x-ray was reviewed and shows no acute process. He is afebrile. All labs and reports reviewed. Review of Systems 14 point review of systems was completed and is negative unless noted above in the HPI Past Medical History Past Medical History: COPD, GERD/Reflux, Seizure Disorder, Syncope Additional Past Medical History / Comment(s): ETOH abuse 4years, syncope with seizure related to alcohol withdrawal and delerium tremors, thrombocytopenia, hyponatremia, increased AST and ALT and increased random blood sugars, gait dysfunction and encephalopathy. 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 He is alive. Mother Family Medical History: No Reported History Additional Family Medical History / Comment(s): Mother is living and is healthy Brother(s) Additional Family Medical History / Comment(s): Bipolar, schizoprenia Medications and Allergies Home Medications Medication Instructions Recorded Confirmed Type HYDROcodone/APAP 5-325MG [Matheny 1 tab PO Q6H PRN 02/06/18 02/06/18 History 5-325] Ibuprofen [Motrin] 800 mg PO Q8H PRN 02/06/18 02/06/18 History Allergies Allergy/AdvReac Type Severity Reaction Status Date / Time No Known Allergies Allergy Verified 02/06/18 07:20 Physical Exam Vitals: Vital Signs Temp Pulse Resp BP Pulse Ox 02/06/18 11:00 87 18 100 02/06/18 10:05 97.0 F L 92 18 115/73 100 02/06/18 07:54 79 18 114/67 100 02/06/18 07:45 81 17 114/67 100 02/06/18 07:30 94 02/06/18 06:22 103 H 02/06/18 03:39 97.6 F 78 20 138/91 90 L Intake and Output 02/05/18 02/06/18 02/06/18 22:59 06:59 14:59 Other: Weight 77.111 kg GENERAL EXAM: Alert, comfortable in no apparent distress. On BiPAP HEAD: Normocephalic. EYES: Normal reaction of pupils, equal size. NOSE: Clear with pink turbinates. THROAT: No erythema or exudates. NECK: No masses, no JVD. CHEST: No chest wall deformity. LUNGS: Equal air entry with no crackles, wheeze, rhonchi or dullness. CVS: S1 and S2 normal with no audible mumurs, regular rhythm. ABDOMEN: No hepatosplenomegaly, normal bowel sounds, no guarding or rigidity. EXTREMITIES: No edema noted, pedal pulses palpable. SKIN: No rashes CENTRAL NERVOUS SYSTEM: Mild tremor related to DTs, tone is normal in all 4 extremities. Results - Laboratory Findings CBC and BMP: 02/06/18 03:50 02/06/18 03:50 ABG ABG pH 7.47 (7.35-7.45) H 02/06/18 06:01 ABG pCO2 39 mmHg (35-45) 02/06/18 06:01 ABG pO2 59 mmHg (83-108) L 02/06/18 06:01 ABG O2 Saturation 89.0 % (94-97) L 02/06/18 06:01 Abnormal lab findings: Abnormal Labs 02/06/18 02/06/18 02/06/18 03:50 03:50 03:52 RBC 3.05 L Hgb 9.7 L Hct 28.4 L Lymphocytes # 0.8 L ABG pH ABG pO2 ABG HCO3 ABG Total CO2 ABG O2 Saturation Sodium 123 L Chloride 85 L Creatinine 0.60 L Glucose 141 H POC Glucose (mg/dL) 167 H Calcium 11.7 H AST 75 H 02/06/18 06:01 RBC Hgb Hct Lymphocytes # ABG pH 7.47 H ABG pO2 59 L ABG HCO3 28 H ABG Total CO2 29 H ABG O2 Saturation 89.0 L Sodium Chloride Creatinine Glucose POC Glucose (mg/dL) Calcium AST - Diagnostic Findings Chest x-ray: report reviewed, image reviewed Assessment and Plan Assessment: Assessment Seizure disorders, possibly related to alcohol withdrawal DTs related to alcohol withdrawal Acute hypoxic respiratory failure requiring supplemental oxygen and BiPAP post ictal Hyponatremia EtOH dependency Nicotine dependency Plan Medications have been reviewed and will be continued as ordered. Patient should be maintained on CIWA protocol. IV steroids. Maintenance IV fluids 0.975 an hour. Obtain a magnesium and ammonia level, have lab add to previous blood draw. We will also add multivitamin. Continue with pulmonary hygiene, coughing and deep breathing exercises, and supportive care. Supplemental oxygen or BiPap to maintain oxygen saturations of 92% or better. Initiate nebulizer treatments, and the lump inhaled steroids and bronchodilators. GI and DVT prophylaxis. Seizure and aspiration precautions. Urinalysis and urine drug screen pending. We will continue to monitor labs/results and adjust treatment as necessary. Further recommendations pending. I performed an examination of the patient and discussed their management with the nurse practitioner. I have reviewed the nurse practitioner's note and agree with the documented findings and plan of care. <Esha Ambrose - Last Filed: 02/06/18 15:07> Physical Exam Osteopathic Statement: *. No significant issues noted on an osteopathic structural exam other than those noted in the History and Physical/Consult. Vitals: Vital Signs Temp Pulse Resp BP Pulse Ox 02/06/18 14:12 76 02/06/18 14:01 69 15 02/06/18 13:58 97.0 F L 68 20 126/82 100 02/06/18 12:00 97.3 F L 72 18 117/77 100 02/06/18 11:00 87 18 100 02/06/18 10:05 97.0 F L 92 18 115/73 100 02/06/18 07:54 79 18 114/67 100 02/06/18 07:45 81 17 114/67 100 02/06/18 07:30 94 02/06/18 06:22 103 H 02/06/18 03:39 97.6 F 78 20 138/91 90 L Intake and Output 02/06/18 02/06/18 02/06/18 06:59 14:59 22:59 Other: Weight 77.111 kg Results - Laboratory Findings CBC and BMP: 02/06/18 03:50 02/06/18 03:50 ABG ABG pH 7.47 (7.35-7.45) H 02/06/18 06:01 ABG pCO2 39 mmHg (35-45) 02/06/18 06:01 ABG pO2 59 mmHg (83-108) L 02/06/18 06:01 ABG O2 Saturation 89.0 % (94-97) L 02/06/18 06:01 Abnormal lab findings: Abnormal Labs 02/06/18 02/06/18 02/06/18 03:50 03:50 03:50 RBC 3.05 L Hgb 9.7 L Hct 28.4 L Lymphocytes # 0.8 L ABG pH ABG pO2 ABG HCO3 ABG Total CO2 ABG O2 Saturation Sodium 123 L Chloride 85 L Creatinine 0.60 L Glucose 141 H POC Glucose (mg/dL) Calcium 11.7 H Magnesium 0.8 L* AST 75 H Ammonia Urine Ketones Hyaline Casts Urine Mucus Ur Barbiturates Screen U Benzodiazepines Scrn 02/06/18 02/06/18 02/06/18 03:50 03:52 06:01 RBC Hgb Hct Lymphocytes # ABG pH 7.47 H ABG pO2 59 L ABG HCO3 28 H ABG Total CO2 29 H ABG O2 Saturation 89.0 L Sodium Chloride Creatinine Glucose POC Glucose (mg/dL) 167 H Calcium Magnesium AST Ammonia 112 H Urine Ketones Hyaline Casts Urine Mucus Ur Barbiturates Screen U Benzodiazepines Scrn 02/06/18 12:42 RBC Hgb Hct Lymphocytes # ABG pH ABG pO2 ABG HCO3 ABG Total CO2 ABG O2 Saturation Sodium Chloride Creatinine Glucose POC Glucose (mg/dL) Calcium Magnesium AST Ammonia Urine Ketones Trace H Hyaline Casts 3 H Urine Mucus Rare H Ur Barbiturates Screen Detected H U Benzodiazepines Scrn Detected H Assessment and Plan Assessment: Patient seen and examined in the emergency department. Patient is awake and alert on BiPAP. Respiratory therapy is at bedside. BiPAP will be placed on standby. The patient will be placed on nasal cannula for O2 saturation less than 88%. At this time he is currently 100% on room air. Seizure precautions. WA protocol. Consult neurology and GI. Check abdominal x-ray. Lactulose. Monitor ammonia level. Replace magnesium. Multivitamin, thiamine, folate. GI and DVT prophylaxis. Aspiration precautions. Patient states he would consider going to rehab. Consult social work. ~Esha Ambrose DO
[2018-02-06] MEDS: THIAMINE 100 MG TAB PO SCH (12:10)
[2018-02-06] MEDS: LORazepam 2 MG/ML INJ IV PRN ×2 (12:10→16:59)
[2018-02-06 13:01] LABS: Hyaline Casts,Urine 3 /lpf (0-2); Mucus,Urine Rare /hpf; RBC,Urine 1 /hpf (0-5); WBC,Urine 2 /hpf (0-5)
[2018-02-06 13:04] LABS: Appearance,Urine Clear (Clear); Bilirubin,Urine Negative (Negative); Blood,Urine Negative (Negative); Color,Urine Yellow; Glucose,Urine (UA) Negative (Negative); Ketones,Urine Trace (Negative); Leukocyte Esterase,Urine Negative (Negative); Nitrite,Urine Negative (Negative); Protein,Urine Negative (Negative); Specific Gravity,Urine 1.012 (1.001-1.035); Urobilinogen,Urine <2.0 mg/dL (<2.0)
[2018-02-06 13:11] LABS: Amphetamine Screen,Urine Not Detected (NotDetected); Barbiturate Screen,Urine Detected (NotDetected); Benzodiazepines Screen,Urine Detected (NotDetected); Cocaine Screen,Urine Not Detected (NotDetected); Methadone Screen, Urine Not Detected (NotDetected); Opiate Screen,Urine Not Detected (NotDetected); Oxycodone Screen, Urine Not Detected (NotDetected); Phencyclidine Screen,Urine Not Detected (NotDetected); Tricyclic Antidepressant,Urine Not Detected (NotDetected); Urn Cannabinoid Scrn Not Detected (NotDetected)
[2018-02-06] MEDS ORDERED: Magnesium Replacement Protocol 1 EACH MISC MISCELLANE PRN (13:21)
[2018-02-06] MEDS: PANTOPRAZOLE 40 MG/10 ML VIAL IVP SCH (13:54)
[2018-02-06] MEDS: SODIUM CHLORIDE 0.9% 1,000 ML IV SCH ×2 (13:54→16:54)
[2018-02-06] MEDS: MAGNESIUM SULFATE-D5W PMX 1 GM in DEXTROSE/WATER 1 100ML.BAG IVPB SCH ×4 (13:54→18:17)
[2018-02-06] MEDS: HEPARIN SODIUM,PORCINE 5,000 UNIT/ML 1 ML VIAL SQ SCH ×2 (13:54→20:18)
[2018-02-06] MEDS: IPRATROPIUM-ALBUTEROL 3 ML NEB INHALATION SCH ×2 (13:59→21:34)
--- NOTE | 2018-02-06 15:30 | XR ---
EXAMINATION TYPE: XR abdomen acute w cxr DATE OF EXAM: 02/06/2018 COMPARISON: NONE HISTORY: Abdomen pain, seizure TECHNIQUE: Acute abdominal series performed with a frontal chest upright and supine views of the abdo men. FINDINGS: Lung daley are clear. No free air is under the diaphragm. Colonic bowel gas is present. No mass effect is evident. Psoas margins are normal. Organomegaly is not evident. No suspicious calcifi cations are evident. IMPRESSION: 1. Normal acute abdominal series.
[2018-02-06] MEDS: LACTULOSE 20 GM/30 ML CUP PO SCH (16:54)
[2018-02-06] MEDS: methylPREDNISolone SOD SUCCI 125 MG/2 ML VIAL IV SCH (16:55)
[2018-02-06 17:02] LABS: Glucose,Whole Blood 125 mg/dL (75-99)
[2018-02-06 21:19] LABS: Glucose,Whole Blood 150 mg/dL (75-99)
[2018-02-06] MEDS: BUDESONIDE 1 MG/2 ML NEBU INHALATION SCH (21:34)
--- NOTE | 2018-02-06 22:26 | CONS ---
CONSULTATION DATE OF CONSULTATION: 02/06/2018 CHIEF COMPLAINT: Seizure. HISTORY OF PRESENT ILLNESS: The patient is a 52-year-old male, who is being evaluated by the neurology service per the request of Dr. Jamarcus Duque for seizures. The patient was brought into [facility] Emergency Room after he had seizure-like activity at home. He had another seizure in the emergency room which was described as a generalized tonic- clonic seizure which lasted approximately 90 seconds. He was given Ativan IV. The patient has history of alcohol abuse and states that he has not had any alcohol in 2 days. He reports having a seizure 3 years ago, but that was also alcohol withdrawal related. He denies any head injuries. At the time of my evaluation, he is lying in his bed and appears to be in no acute distress. I did review his CT scan of the brain which showed generalized atrophy and no acute abnormalities. His CBC showed anemia with a hemoglobin of 9.7 and hematocrit of 28%. His comprehensive metabolic profile showed hyponatremia at 123, hypochloremia at 85 and elevated AST at 75. His magnesium was very low at 0.8. His serum ammonia level was elevated at 112. His urinalysis was normal. PAST MEDICAL HISTORY: Chronic obstructive pulmonary disease, gastroesophageal reflux disease, alcohol abuse, history of tonsillectomy and sinus surgeries. He also has history of bipolar disorder, depression, anxiety disorder. SOCIAL HISTORY: The patient is a current every day smoker. He drinks alcohol daily, as mentioned above. He denies any drug use. FAMILY HISTORY: Positive for cancer and psychiatric disorders. HOME MEDICATIONS: Reviewed in the chart. ALLERGIES: No known drug allergies. REVIEW OF SYSTEM: CONSTITUTIONAL: Positive for fatigue. EYES: Negative. ENT: Negative. CARDIOVASCULAR: Negative. RESPIRATORY: Positive for occasional shortness of breath. NEUROLOGICAL: As mentioned above. GASTROINTESTINAL: Positive for occasional heartburn. GENITOURINARY: Negative. ENDOCRINE: Negative. DERMATOLOGICAL: Negative. MUSCULOSKELETAL: Positive for occasional joint pain. PSYCHIATRIC: As mentioned above. PHYSICAL EXAM: Vital signs show a temperature of 97.8, pulse 81, respirations 18, blood pressure 107/69. GENERAL APPEARANCE: The patient is a well-developed male, who appears to be in no acute distress. HEENT: Normocephalic, atraumatic. No facial asymmetry is seen. NECK: Supple with no masses felt. CARDIOVASCULAR: Regular rate and rhythm. ABDOMEN: Nontender nondistended. Extremities showed no edema or clubbing. NEUROLOGICAL: The patient is alert aware and oriented x3. Speech and language are normal. Strength is full in all 4 extremities. Sensory exam was normal to light touch in all 4 extremities. No tremors or seizure-like activity is seen. No facial asymmetry is noticed on cranial nerve testing. IMPRESSION: 1. Generalized tonic-clonic seizure, alcohol-withdrawal type. 2. History of alcohol abuse. 3. Hyponatremia. 4. Hypomagnesemia. 5. Anemia. 6. Hepatic insufficiency. 7. Tobacco dependence. RECOMMENDATION: The patient did have witnessed generalized tonic-clonic seizures. He does have history of daily alcohol abuse, but he admits that he has not had any alcoholic beverages in over 2 days. Although he did have a seizure 3 years ago, that was also alcohol withdrawal-related, according to the patient. No anti-epileptic medications were recommended. I did review his CT scan of the brain which showed no acute findings. An EEG will be ordered. The patient was counseled extensively on alcohol cessation and tobacco cessation. He does report that he believes that he will quit drinking alcohol at this time. I do recommend a psychiatric consultation. As for his electrolyte imbalance, continue IV hydration for his hyponatremia, which may have also reduced his seizure threshold. I also recommend magnesium supplementation. Continue seizure precautions. The patient was told that he is not to drive or operate any heavy machinery for a period of 6 months. Continue neuro checks. I will continue to follow with you. Further recommendations to follow. Thank you, Dr. Duque, for allowing me to participate in the care of your patient. If you have any questions, please feel free to contact me. [id number] / IJN: [id number] /
--- NOTE | 2018-02-06 22:38 | HP ---
HISTORY AND PHYSICAL This patient is a 52-year-old white male with DTs and respiratory distress. He has seizure-like activity, full tonic-clonic seizures in the ER lasting one and a half minutes. Massive amount of alcohol he takes at home. He has refused rehab for alcohol abuse in the past. He has recently been admitted with alcohol withdrawal and postictal changes. Sodium was 123, chloride was 85. Alcohol was less than 10. He had been drinking about a pint of liquor a day. He was given BiPAP for low oxygen saturations in the ER. He was placed on CIWA protocol. He has had elevated ammonia levels. REVIEW OF SYSTEMS: NEURO: Severe obtundation. ENDOCRINE: Generalized weakness. Other 14-point review of systems negative. PAST MEDICAL HISTORY: 1. COPD. 2. GERD. 3. Seizure disorder. 4. Syncope. 5. Hyponatremia. 6. Hyperammonemia. 7. Alcohol abuse. 8. Thrombocytopenia. 9. Delirium tremens. 10.Alcohol withdrawal. 11.Gait dysfunction. 12.Encephalopathy. SURGERIES: 1. Ear surgery. 2. Tonsillectomy. 3. Nasal surgery. PSYCH HISTORY: Anxiety, bipolar, depression. Smokes every day. Alcohol abuse daily. FAMILY HISTORY: Father with cancer of the stomach. Mother normal. Brother with bipolar and schizophrenia. HOME MEDICATIONS: Motrin 800 q.8 hours p.r.n. ALLERGIES: NO KNOWN DRUG ALLERGIES. PHYSICAL EXAMINATION: Temperature 97.6, blood pressure 130s over 90s. Oxygen saturation 90% on room air. Respiratory rate is 17 to 20. Pulse is 78 to 100. Weight is 77 kg. HEENT: Alert. No acute distress. Head normocephalic, atraumatic. OPHTHALMOLOGIC: Pupils equal, round and reactive to light and accommodation. Throat with no exudate. NECK: Supple. No JVD. CHEST: No chest wall deformity. LUNGS: Scattered wheeze and rhonchi. CARDIOVASCULAR: S1, S2. Abdomen is soft, nontender. EXTREMITIES: No cyanosis, clubbing, edema. SKIN: No rashes or excoriations or bruising. BAGGAGE CLERK: Mild tremor and DTs. LABS: Hemoglobin is 9.7, white count 8.0. Sodium 123. ABG as mentioned above. Sodium 123, creatinine 0.6, glucose 141, calcium 11.7. ASSESSMENT: 1. Seizure disorder secondary to alcohol withdrawal. 2. Delirium tremens secondary to alcohol withdrawal. 3. Acute hypoxemic respiratory failure. 4. Supplemental oxygen. 5. BiPAP. 6. Hyponatremia. 7. Alcohol dependency. 8. Nicotine dependency. Continue on IV steroids, CIWA protocol, IV fluids. Continue with nebulizer treatments, BiPAP. CIWA protocol. Replace electrolytes. Prognosis guarded. Await neurology consult and pulmonary consult. MMODL / IJN: [id number] /
[2018-02-07] MEDS: methylPREDNISolone SOD SUCCI 125 MG/2 ML VIAL IV SCH ×3 (00:09→17:15)
[2018-02-07] MEDS: LORazepam 2 MG/ML INJ IV PRN ×8 (04:13→19:56)
[2018-02-07 06:14] LABS: Glucose,Whole Blood 168 mg/dL (75-99)
[2018-02-07 06:22] LABS: Basophils % (A) 0 %; Eosinophils # (A) 0.1 k/uL (0-0.7); Eosinophils % (A) 1 %; HCT 25.8 % (39.0-53.0); Lymphocytes # (A) 0.4 k/uL (1.0-4.8); Lymphocytes % (A) 4 %; MCH 32.7 pg (25.0-35.0); MCHC 34.8 g/dL (31.0-37.0); MCV 93.9 fL (80.0-100.0); Mean Platelet Volume 8.2; Monocytes # (A) 0.2 k/uL (0-1.0); Monocytes % (A) 2 %; Neutrophils # (A) 9.5 k/uL (1.3-7.7); Neutrophils % (A) 94 %; Platelet Count 177 k/uL (150-450); RBC 2.75 m/uL (4.30-5.90); RDW 14.1 % (11.5-15.5); WBC 10.2 k/uL (3.8-10.6)
[2018-02-07 06:33] LABS: ALT 46 U/L (21-72); AST 53 U/L (17-59); Albumin 3.8 g/dL (3.5-5.0); Alkaline Phosphatase 60 U/L (38-126); Anion Gap 10 mmol/L; Blood Urea Nitrogen 8 mg/dL (9-20); Calcium 8.9 mg/dL (8.4-10.2); Carbon Dioxide 25 mmol/L (22-30); Chloride 93 mmol/L (98-107); Glucose 141 mg/dL (74-99); Magnesium 1.2 mg/dL (1.6-2.3); Potassium 3.8 mmol/L (3.5-5.1); Sodium 128 mmol/L (137-145); Total Bilirubin 0.6 mg/dL (0.2-1.3); Total Protein 6.8 g/dL (6.3-8.2)
[2018-02-07] MEDS: BUDESONIDE 1 MG/2 ML NEBU INHALATION SCH ×2 (07:48→20:17)
[2018-02-07] MEDS: IPRATROPIUM-ALBUTEROL 3 ML NEB INHALATION SCH ×3 (07:48→20:17)
[2018-02-07] MEDS: MAGNESIUM SULFATE-D5W PMX 1 GM in DEXTROSE/WATER 1 100ML.BAG IVPB SCH ×3 (09:09→13:00)
[2018-02-07] MEDS: PANTOPRAZOLE 40 MG/10 ML VIAL IVP SCH (09:22)
[2018-02-07] MEDS: HEPARIN SODIUM,PORCINE 5,000 UNIT/ML 1 ML VIAL SQ SCH ×2 (09:22→21:43)
[2018-02-07 11:29] LABS: Glucose,Whole Blood 164 mg/dL (75-99)
--- NOTE | 2018-02-07 12:19 | P.PN ---
<Judith Singletary E - Last Filed: 02/07/18 12:15> Subjective Progress Note Date: 02/07/18 HPI: This is a 52-year-old male patient who came into the emergency room with seizure -like activity. He had full tonic-clonic seizures in the emergency room that lasted approximately 1.5 minutes and was witnessed. Patient was given Ativan 2 mg which did help him. This patient is well-known to our services and has had recent hospitalizations related to his alcohol use and DVTs. After the patient was postictal his pulse ox dropped to the low 80s despite given oxygen. The patient was started on BiPAP and ABGs were completed. The patient did respond well to the BiPAP. Patient also was noted to have a serum sodium of 123 and a chloride of 85. Serum alcohol was less than 10. The patient states that he drank 1 pint of vodka yesterday. And then he drinks approximately 1 pint of liquor per day. Upon examination the patient is resting up in bed on BiPAP, noted to have some mild tremors. He is oxygen sats are now in the mid 90s currently. He is maintained on CIWA protocol and getting Ativan as needed. She did receive a 1 L bolus upon arrival to the emergency room. Maintenance IV fluids will be ordered. Chest x-ray was reviewed and shows no acute process. He is afebrile. All labs and reports reviewed. 02/07/18- patient has been seen and examined and evaluated today on rounds. The patient is currently resting in bed on 2 L of supplemental oxygen via nasal cannula. He continues to be on CIWA protocol. Labs are reviewed and his magnesium continues to be low and replaced it is 1.2 today. Potassium is 3.8. Sodium is improved to 128. He does have some continued tremors and continues to have some confusion and hallucinations related to DVTs. Nephrology is also seeing the patient. External was consulted yesterday for acute abdominal pain abdominal x-rays were negative however the patient still has some tenderness to palpation to his abdomen. Objective - Vital Signs Vital signs: Vital Signs Temp 96.9 F L 02/07/18 11:29 Pulse 82 02/07/18 11:29 Resp 18 02/07/18 11:29 BP 138/68 02/07/18 11:29 Pulse Ox 94 L 02/07/18 11:29 Intake & Output 02/06/18 02/07/18 02/07/18 18:59 06:59 18:59 Intake Total 200 825 0 Output Total 400 Balance -200 825 0 Weight 74.5 kg Intake: IV 825 Invasive Line 1 825 Oral 200 0 Output: Urine 400 Other: Voiding Method Urinal Diaper - Exam GENERAL EXAM: Alert, confusion, comfortable in no apparent distress. HEAD: Normocephalic. EYES: Normal reaction of pupils, equal size. NOSE: Clear with pink turbinates. THROAT: No erythema or exudates. NECK: No masses, no JVD. CHEST: No chest wall deformity. LUNGS: Equal air entry with no crackles, wheeze, rhonchi or dullness. CVS: S1 and S2 normal with no audible mumurs, regular rhythm. ABDOMEN: No hepatosplenomegaly, normal bowel sounds, no guarding or rigidity. EXTREMITIES: No edema noted, pedal pulses palpable. SKIN: No rashes CENTRAL NERVOUS SYSTEM: Mild tremor related to DTs, tone is normal in all 4 extremities. - Labs CBC & Chem 7: 02/07/18 05:58 02/07/18 05:58 Labs: Abnormal Lab Results - Last 24 Hours (Table) 02/06/18 02/06/18 02/06/18 Range/Units 03:50 03:50 12:42 RBC (4.30-5.90) m/uL Hgb (13.0-17.5) gm/dL Hct (39.0-53.0) % Neutrophils # (1.3-7.7) k/uL Lymphocytes # (1.0-4.8) k/uL Sodium (137-145) mmol/L Chloride (98-107) mmol/L BUN (9-20) mg/dL Creatinine (0.66-1.25) mg/dL Glucose (74-99) mg/dL POC Glucose (mg/dL) (75-99) mg/dL Magnesium 0.8 L* (1.6-2.3) mg/dL Ammonia 112 H (<30) umol/L Urine Ketones Trace H (Negative) Hyaline Casts 3 H (0-2) /lpf Urine Mucus Rare H (None) /hpf Ur Barbiturates Screen Detected H (NotDetected) U Benzodiazepines Scrn Detected H (NotDetected) 02/06/18 02/06/18 02/07/18 Range/Units 16:56 21:17 05:58 RBC 2.75 L (4.30-5.90) m/uL Hgb 9.0 L (13.0-17.5) gm/dL Hct 25.8 L (39.0-53.0) % Neutrophils # 9.5 H (1.3-7.7) k/uL Lymphocytes # 0.4 L (1.0-4.8) k/uL Sodium (137-145) mmol/L Chloride (98-107) mmol/L BUN (9-20) mg/dL Creatinine (0.66-1.25) mg/dL Glucose (74-99) mg/dL POC Glucose (mg/dL) 125 H 150 H (75-99) mg/dL Magnesium (1.6-2.3) mg/dL Ammonia (<30) umol/L Urine Ketones (Negative) Hyaline Casts (0-2) /lpf Urine Mucus (None) /hpf Ur Barbiturates Screen (NotDetected) U Benzodiazepines Scrn (NotDetected) 02/07/18 02/07/18 02/07/18 Range/Units 05:58 06:12 11:27 RBC (4.30-5.90) m/uL Hgb (13.0-17.5) gm/dL Hct (39.0-53.0) % Neutrophils # (1.3-7.7) k/uL Lymphocytes # (1.0-4.8) k/uL Sodium 128 L (137-145) mmol/L Chloride 93 L (98-107) mmol/L BUN 8 L (9-20) mg/dL Creatinine 0.61 L (0.66-1.25) mg/dL Glucose 141 H (74-99) mg/dL POC Glucose (mg/dL) 168 H 164 H (75-99) mg/dL Magnesium 1.2 L (1.6-2.3) mg/dL Ammonia (<30) umol/L Urine Ketones (Negative) Hyaline Casts (0-2) /lpf Urine Mucus (None) /hpf Ur Barbiturates Screen (NotDetected) U Benzodiazepines Scrn (NotDetected) Assessment and Plan Assessment: Assessment Seizure disorders, possibly related to alcohol withdrawal DTs related to alcohol withdrawal Acute hypoxic respiratory failure requiring supplemental oxygen and BiPAP post ictal Hyponatremia EtOH dependency Nicotine dependency Plan Medications have been reviewed and will be continued as ordered. Patient should be maintained on CIWA protocol. IV steroids. Maintenance IV fluids 75 an hour. Continue to monitor and replace electrolytes. We will also add multivitamin. Continue with pulmonary hygiene, coughing and deep breathing exercises, and supportive care. Supplemental oxygen or BiPap to maintain oxygen saturations of 92% or better. Initiate nebulizer treatments, and the lump inhaled steroids and bronchodilators. GI and DVT prophylaxis. Seizure and aspiration precautions. We will continue to monitor labs/results and adjust treatment as necessary. Further recommendations pending. I performed an examination of the patient and discussed their management with the nurse practitioner. I have reviewed the nurse practitioner's note and agree with the documented findings and plan of care. <Esha Ambrose - Last Filed: 02/07/18 14:59> Objective - Vital Signs Vital signs: Vital Signs Temp 96.9 F L 02/07/18 11:29 Pulse 82 02/07/18 11:29 Resp 18 02/07/18 11:29 BP 138/68 02/07/18 11:29 Pulse Ox 94 L 02/07/18 11:29 Intake & Output 02/06/18 02/07/18 02/07/18 18:59 06:59 18:59 Intake Total 200 825 0 Output Total 400 Balance -200 825 0 Weight 74.5 kg Intake: IV 825 Invasive Line 1 825 Oral 200 0 Output: Urine 400 Other: Voiding Method Urinal Diaper - Labs CBC & Chem 7: 02/07/18 05:58 02/07/18 05:58 Labs: Abnormal Lab Results - Last 24 Hours (Table) 02/06/18 02/06/18 02/07/18 Range/Units 16:56 21:17 05:58 RBC 2.75 L (4.30-5.90) m/uL Hgb 9.0 L (13.0-17.5) gm/dL Hct 25.8 L (39.0-53.0) % Neutrophils # 9.5 H (1.3-7.7) k/uL Lymphocytes # 0.4 L (1.0-4.8) k/uL Sodium (137-145) mmol/L Chloride (98-107) mmol/L BUN (9-20) mg/dL Creatinine (0.66-1.25) mg/dL Glucose (74-99) mg/dL POC Glucose (mg/dL) 125 H 150 H (75-99) mg/dL Magnesium (1.6-2.3) mg/dL 02/07/18 02/07/18 02/07/18 Range/Units 05:58 06:12 11:27 RBC (4.30-5.90) m/uL Hgb (13.0-17.5) gm/dL Hct (39.0-53.0) % Neutrophils # (1.3-7.7) k/uL Lymphocytes # (1.0-4.8) k/uL Sodium 128 L (137-145) mmol/L Chloride 93 L (98-107) mmol/L BUN 8 L (9-20) mg/dL Creatinine 0.61 L (0.66-1.25) mg/dL Glucose 141 H (74-99) mg/dL POC Glucose (mg/dL) 168 H 164 H (75-99) mg/dL Magnesium 1.2 L (1.6-2.3) mg/dL Assessment and Plan Assessment: Patient seen and examined. Patient is still confused. He states he is at a private home. He does not know where he is or the date. His ammonia is improved to 10. Magnesium is improving to 1.2. We will decrease his lactulose. Continue O2 to maintain saturation greater than equal to 90% CIWA protocol Seizure precautions We'll continue to follow along Esha Ambrose DO
[2018-02-07] MEDS: FOLIC ACID 1 MG TAB PO SCH (13:00)
[2018-02-07] MEDS: MULTIVITAMINS, THERA 1 EACH TAB PO SCH (13:00)
[2018-02-07] MEDS: THIAMINE 100 MG TAB PO SCH ×2 (13:00→17:14)
[2018-02-07] MEDS: LACTULOSE 20 GM/30 ML CUP PO SCH (13:00)
--- NOTE | 2018-02-07 14:47 | P.CONS ---
History of Present Illness - Reason for Consult Consult date: 02/07/18 abdominal pain Requesting physician: Jamarcus Duque - History of Present Illness 52 y/o male evaluated around 0900 this morning with a H ETOH abuse drinks pink liquor daily for several years and seizure disorder. Admitted with tonic clonic seizure activity. Consult requested for abdominal pain. Presently patient is confused with bedside sitter. History obtained from medical records. Acute abdominal series negative reported as normal. Patient is unable to say if he is having abdominal pain this morning. WBC 8-10.2. Hemoglobin 9-9.7. Platelet 177. Na 123. K+ 3.8. BUN 12. Cr 0.6. Magnesium 0.8. T bili 0.9. AST 75. ALT 46. AP 66. Ammonia 112 given lactulose and presently 10. Serum ETOH less than 10. No reports of hematemesis hematochezia or melena. No fevers. CT brain no acute abnormality. Liver US 2015; gallstones; hepatic steatosis. Review of Systems Constitutional: Denies fever, chills, sweats, weight gain, or loss. HEENT: Negative for migraines, blurred vision or loss, earaches, drainage, tinnitus, oral mucosal lesions, dysphagia, or odynophagia. CARDIAC: Negative for chest pain, arrhythmias, or palpitation. RESPIRATORY: Negative for shortness of breath, hemoptysis, cough, or sputum production. GI: See HPI for pertinent findings. : Negative for hematuria, urgency, frequency, polyuria, or dysuria. MUSCULOSKELETAL: Degenerative disc disease. NEUROLOGIC: Negative for CVA/TIA. History of seizures. ENDOCRINE: Negative for thyroid problems. SKIN: Negative for rash or itching. PSYCHIATRIC: Negative history for depression and anxiety Past Medical History Past Medical History: COPD, GERD/Reflux, Seizure Disorder, Syncope Additional Past Medical History / Comment(s): ETOH abuse 4years, syncope with seizure related to alcohol withdrawal and delerium tremors, thrombocytopenia, falls and previously charted-encephalopathy. 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 He is alive. Mother Family Medical History: No Reported History Additional Family Medical History / Comment(s): Mother is living and is healthy Brother(s) Additional Family Medical History / Comment(s): Bipolar, schizoprenia Medications and Allergies Home Medications Medication Instructions Recorded Confirmed Type HYDROcodone/APAP 5-325MG [Sharon 1 tab PO Q6H PRN 02/06/18 02/06/18 History 5-325] Ibuprofen [Motrin] 800 mg PO Q8H PRN 02/06/18 02/06/18 History Allergies Allergy/AdvReac Type Severity Reaction Status Date / Time No Known Allergies Allergy Verified 02/06/18 07:20 Physical Exam Vitals: Vital Signs Temp Pulse Pulse Resp BP BP Pulse Ox 02/07/18 11:29 96.9 F L 82 18 138/68 94 L 02/07/18 08:00 96.9 F L 104 H 18 156/86 96 02/07/18 07:59 97.4 F L 104 H 18 132/82 96 02/07/18 04:00 97.4 F L 82 18 131/70 96 02/07/18 00:00 96.7 F L 101 H 22 113/62 97 02/06/18 21:48 102 H 02/06/18 21:35 102 H 02/06/18 20:00 98.0 F 88 20 108/71 97 02/06/18 16:20 97.7 F 100 18 132/79 97 02/06/18 15:54 97.8 F 81 18 107/69 96 Intake and Output 02/06/18 02/07/18 02/07/18 22:59 06:59 14:59 Intake Total 200 825 0 Output Total 400 Balance -200 825 0 Intake: IV 825 Invasive Line 1 825 Oral 200 0 Output: Urine 400 Other: Voiding Method Urinal Diaper Weight 74.5 kg - Constitutional Sitter at bedside. Confused but awake. General appearance: average body habitus - EENT Eyes: normal appearance - Neck Neck: normal ROM - Respiratory Respiratory: bilateral: CTA - Cardiovascular Rhythm: regular - Gastrointestinal nontender no R/G General gastrointestinal: soft - Integumentary Integumentary: normal turgor - Psychiatric Alert x 1 to self Results CBC & Chem 7: 02/07/18 05:58 02/07/18 05:58 Labs: Abnormal Lab Results - Last 24 Hours (Table) 02/06/18 02/06/18 02/07/18 Range/Units 16:56 21:17 05:58 RBC 2.75 L (4.30-5.90) m/uL Hgb 9.0 L (13.0-17.5) gm/dL Hct 25.8 L (39.0-53.0) % Neutrophils # 9.5 H (1.3-7.7) k/uL Lymphocytes # 0.4 L (1.0-4.8) k/uL Sodium (137-145) mmol/L Chloride (98-107) mmol/L BUN (9-20) mg/dL Creatinine (0.66-1.25) mg/dL Glucose (74-99) mg/dL POC Glucose (mg/dL) 125 H 150 H (75-99) mg/dL Magnesium (1.6-2.3) mg/dL 02/07/18 02/07/18 02/07/18 Range/Units 05:58 06:12 11:27 RBC (4.30-5.90) m/uL Hgb (13.0-17.5) gm/dL Hct (39.0-53.0) % Neutrophils # (1.3-7.7) k/uL Lymphocytes # (1.0-4.8) k/uL Sodium 128 L (137-145) mmol/L Chloride 93 L (98-107) mmol/L BUN 8 L (9-20) mg/dL Creatinine 0.61 L (0.66-1.25) mg/dL Glucose 141 H (74-99) mg/dL POC Glucose (mg/dL) 168 H 164 H (75-99) mg/dL Magnesium 1.2 L (1.6-2.3) mg/dL Abdominal x-ray: report reviewed (Dr. Gibbs) Assessment and Plan (1) Seizure disorder Narrative/Plan: 52 year old male admitted with seizure activity possible abdominal pain but presently without with elevated serum ammonia suspect metabolic possible hepatic with underlying history of ETOH abuse possible underlying alcohol liver disease. Ammonia improved with lactulose. Current Visit: Yes Status: Acute Code(s): G40.909 - EPILEPSY, UNSP, NOT INTRACTABLE, WITHOUT STATUS EPILEPTICUS SNOMED Code(s): 311535665 (2) Hyponatremia Current Visit: Yes Status: Acute Code(s): E87.1 - HYPO-OSMOLALITY AND HYPONATREMIA SNOMED Code(s): 43851607 (3) Chronic alcohol abuse Current Visit: No Status: Acute Code(s): F10.10 - ALCOHOL ABUSE, UNCOMPLICATED SNOMED Code(s): 724716884 (4) Hyperammonemia Current Visit: Yes Status: Acute Code(s): E72.20 - DISORDER OF UREA CYCLE METABOLISM, UNSPECIFIED SNOMED Code(s): 7301192 Plan: 1. US RUQ reevaluate from 2015 study. 2. Recheck ammonia in am. 3. Agree with daily dosing of ammonia for now. 4. Diet as tolerated. The household personal assistant has discussed the risks, benefits and alternative therapies for the above-mentioned procedure and for both sedation/analgesia as well as necessary blood product administration, if indicated, as they pertain to this patient. The patient has indicated understanding and acceptance of the risks and procedures discussed. Thank you for this kind referral and the opportunity to participate in the care of your patient. This consultation was discussed with Dr. Gibbs. The impression and plan of care have been directed as dictated.
[2018-02-07 15:00] VITALS: BMI 22.8
[2018-02-07] MEDS ORDERED: LACTULOSE 20 GM/30 ML CUP PO SCH (16:00)
[2018-02-07] MEDS ORDERED: LORazepam 2 MG/ML INJ IV STA (16:32)
[2018-02-07 16:49] LABS: Glucose,Whole Blood 139 mg/dL (75-99)
[2018-02-07] MEDS: SODIUM CHLORIDE 0.9% 1,000 ML IV SCH (17:19)
--- NOTE | 2018-02-07 21:43 | P.PN ---
Subjective Progress Note Date: 02/07/18 Principal diagnosis: seizure secondary to EtOH withdrawal Neurology is following a 52-year-old male. Patient was brought to the ED after having a seizure-like episode at home. He had another episode of seizure in the emergency room which was described as general tonic-clonic activity which lasted approximately 90 seconds. Patient was given Ativan. Patient does have a history of EtOH abuse and has not had alcohol in 2 days. Patient reports having a seizure 3 years ago but that was also alcohol withdrawal induced. Patient denies head injury at this time. Patient was found supine in bed in two point soft restraints with the sitter present in the room. Patient was alert but combative. CT brain taken in the ED noted generalized atrophy and no acute abnormalities. CBC noted anemia, CMP showed hyponatremia, hyperchloremia and an elevated AST. Magnesium was extremely low at 0.8. Serum ammonia level is elevated. UA was normal.. Objective - Vital Signs Vital signs: Vital Signs Temp 96.9 F L 02/07/18 15:04 Pulse 86 02/07/18 15:04 Resp 18 02/07/18 15:04 BP 136/85 02/07/18 15:04 Pulse Ox 94 L 02/07/18 15:04 Intake & Output 02/07/18 02/07/18 02/08/18 06:59 18:59 06:59 Intake Total 825 0 Balance 825 0 Weight 74.5 kg 74.5 kg Intake: IV 825 Invasive Line 1 825 Oral 0 Other: Voiding Method Urinal Diaper - Exam General appearance: Alert and oriented to name only, no apparent distress, 2 point soft restraints in use. Head: Atraumatic, normocephalic, normal inspection Eyes: Well appearance, PERRLA, EOMI. Absent scleral icterus, conjunctival injection, nystagmus, periorbital swelling. Ear, nose and throat: Normal exam, mucous membranes moist Neck: Normal inspection, absent tenderness, lymphadenopathy. Respiratory: No increased work of breathing Cardiovascular: Regular rate, rhythm GI/abdominal: no guarding, no rebound, no rigidity. Extremities: All range of motion, normal capillary refill, no tenderness, pedal edema joint swelling, calf tenderness. Neurological: cranial nerves II through XII intact no lateralizing weakness no seizure activity noted on physical exam no pronator drift and no nystagmus. strength is full in all 4 extremities. Sensory exam was normal to light touch in all 4 extremities. No facial asymmetry was noted. Psychological: Mood and affect appropriate for setting. - Labs CBC & Chem 7: 02/07/18 05:58 02/07/18 05:58 Labs: Abnormal Lab Results - Last 24 Hours (Table) 02/07/18 02/07/18 02/07/18 Range/Units 05:58 05:58 06:12 RBC 2.75 L (4.30-5.90) m/uL Hgb 9.0 L (13.0-17.5) gm/dL Hct 25.8 L (39.0-53.0) % Neutrophils # 9.5 H (1.3-7.7) k/uL Lymphocytes # 0.4 L (1.0-4.8) k/uL Sodium 128 L (137-145) mmol/L Chloride 93 L (98-107) mmol/L BUN 8 L (9-20) mg/dL Creatinine 0.61 L (0.66-1.25) mg/dL Glucose 141 H (74-99) mg/dL POC Glucose (mg/dL) 168 H (75-99) mg/dL Magnesium 1.2 L (1.6-2.3) mg/dL 02/07/18 02/07/18 Range/Units 11:27 16:48 RBC (4.30-5.90) m/uL Hgb (13.0-17.5) gm/dL Hct (39.0-53.0) % Neutrophils # (1.3-7.7) k/uL Lymphocytes # (1.0-4.8) k/uL Sodium (137-145) mmol/L Chloride (98-107) mmol/L BUN (9-20) mg/dL Creatinine (0.66-1.25) mg/dL Glucose (74-99) mg/dL POC Glucose (mg/dL) 164 H 139 H (75-99) mg/dL Magnesium (1.6-2.3) mg/dL Assessment and Plan (1) Chronic alcohol abuse Current Visit: No Status: Acute Code(s): F10.10 - ALCOHOL ABUSE, UNCOMPLICATED SNOMED Code(s): 685305914 (2) Seizure disorder Current Visit: Yes Status: Acute Code(s): G40.909 - EPILEPSY, UNSP, NOT INTRACTABLE, WITHOUT STATUS EPILEPTICUS SNOMED Code(s): 769488692 (3) Alcohol dependence with withdrawal Current Visit: No Status: Acute Code(s): F10.239 - ALCOHOL DEPENDENCE WITH WITHDRAWAL, UNSPECIFIED SNOMED Code(s): 52092822 (4) Seizure Current Visit: No Status: Acute Code(s): R56.9 - UNSPECIFIED CONVULSIONS SNOMED Code(s): 08575612 Plan: 1. Seizure disorder 2. EtOH withdrawal 3. Substance abusealcohol Patient does appear to have experienced seizure secondary to EtOH withdrawal. Patient is known to abuse alcohol. Patient has not had alcohol in greater than 48 hours. Patient does have prior history of similar type activity with EtOH withdrawal. Patient is currently combative and is being obtained on two point soft restraints. CT brain was unremarkable. EEG is ordered. Patient was again counseled on cessation of tobacco products. Patient is known to electrolyte abnormalities that may have decreased seizure threshold. Patient was recently given magnesium supplementation as well. Continue seizure precautions. Continue neuro checks as ordered. Continue to address any electrolyte abnormalities EEG pending 4. Tobacco dependence Patient was counseled extensively on tobacco cessation. 5. Anemia: Manage per plan Status: Neurology will continue to follow on an "as-needed" basis. If necessary we can reconsult on the patient at a later date and time. I have discussed the plan of care with the physician prior to implementation and he agrees with the plan as implemented.
[2018-02-07 21:44] LABS: Glucose,Whole Blood 96 mg/dL (75-99)
[2018-02-08] MEDS: LORazepam 2 MG/ML INJ IV PRN ×3 (00:26→10:02)
[2018-02-08] MEDS: methylPREDNISolone SOD SUCCI 125 MG/2 ML VIAL IV SCH ×4 (00:26→23:24)
[2018-02-08] MEDS ORDERED: LORazepam 2 MG/ML INJ IV SCH (04:00)
[2018-02-08] MEDS: SODIUM CHLORIDE 0.9% 1,000 ML IV SCH ×2 (06:11→17:05)
[2018-02-08 06:13] LABS: Basophils % (A) 0 %; Eosinophils # (A) 0.1 k/uL (0-0.7); Eosinophils % (A) 1 %; HCT 26.4 % (39.0-53.0); HGB 9.1 gm/dL (13.0-17.5); Lymphocytes # (A) 0.5 k/uL (1.0-4.8); Lymphocytes % (A) 5 %; MCH 32.8 pg (25.0-35.0); MCHC 34.3 g/dL (31.0-37.0); MCV 95.6 fL (80.0-100.0); Mean Platelet Volume 8.7; Monocytes # (A) 0.3 k/uL (0-1.0); Monocytes % (A) 2 %; Neutrophils # (A) 11.1 k/uL (1.3-7.7); Neutrophils % (A) 92 %; Platelet Count 190 k/uL (150-450); RBC 2.77 m/uL (4.30-5.90); RDW 14.2 % (11.5-15.5)
[2018-02-08 06:23] LABS: ALT 55 U/L (21-72); AST 118 U/L (17-59); Albumin 3.8 g/dL (3.5-5.0); Alkaline Phosphatase 61 U/L (38-126); Anion Gap 8 mmol/L; Blood Urea Nitrogen 7 mg/dL (9-20); Calcium 8.9 mg/dL (8.4-10.2); Carbon Dioxide 28 mmol/L (22-30); Chloride 100 mmol/L (98-107); Glucose 117 mg/dL (74-99); Potassium 3.9 mmol/L (3.5-5.1); Sodium 136 mmol/L (137-145); Total Bilirubin 0.6 mg/dL (0.2-1.3); Total Protein 6.8 g/dL (6.3-8.2)
[2018-02-08] MEDS: BUDESONIDE 1 MG/2 ML NEBU INHALATION SCH ×2 (07:47→20:54)
[2018-02-08] MEDS: IPRATROPIUM-ALBUTEROL 3 ML NEB INHALATION SCH ×3 (07:47→20:54)
--- NOTE | 2018-02-08 08:07 | US ---
EXAMINATION TYPE: US abdomen limited DATE OF EXAM: 02/07/2018 COMPARISON: US 2015 CLINICAL HISTORY: abdominal pain/elevated ammonia ETOH abuse . Patient confused - unable to obtain hi story, patient in 4 point restraints - unable to roll on side for LLD position images EXAM MEASUREMENTS: Liver Length: 17.6 cm Gallbladder Wall: 0.2 cm CBD: 0.4 cm Right Kidney: 11.4 x 5.0 x 4.8 cm Pancreas: visualized portions wnl, tail obscured by overlying midline bowel gas Liver: measures in upper limits of normal, course echotexture with increased echogenicity throughout . This most commonly relates to hepatic steatosis and limits evaluation for underlying hepatic masses . Gallbladder: wnl Evidence for sonographic Ragland's sign: n/a CBD: wnl Right Kidney: Unremarkable IMPRESSION: 1. No sonographic evidence of cholelithiasis or acute cholecystitis. 2. Hyperechoic hepatic echotexture, most commonly relating to hepatic steatosis.
[2018-02-08] MEDS: HEPARIN SODIUM,PORCINE 5,000 UNIT/ML 1 ML VIAL SQ SCH ×2 (09:14→19:30)
[2018-02-08] MEDS: LACTULOSE 20 GM/30 ML CUP PO SCH (09:14)
[2018-02-08] MEDS: PANTOPRAZOLE 40 MG/10 ML VIAL IVP SCH (09:16)
--- NOTE | 2018-02-08 09:26 | P.PN ---
Subjective Progress Note Date: 02/08/18 Principal diagnosis: Seizure 52-year-old male with a history of EtOH abuse seizure disorder admitted with acute seizures. Confused in restraints. AST 118. Ammonia less than 9. Remainder liver function tests within normal limits. Per nursing no reports of abdominal pain hematemesis hematochezia melena. Ultrasound no evidence of cholelithiasis. Hyperechoic hepatic echotexture secondary to hepatic steatosis. Objective - Vital Signs Vital signs: Vital Signs Temp 97 F L 02/08/18 07:53 Pulse 104 H 02/08/18 07:53 Resp 20 02/08/18 07:53 BP 156/77 02/08/18 07:53 Pulse Ox 99 02/08/18 07:53 Intake & Output 02/07/18 02/08/18 02/08/18 18:59 06:59 18:59 Intake Total 0 525 Balance 0 525 Weight 74.5 kg 77.5 kg Intake: Intake, IV Titration 525 Amount Sodium Chloride 0.9% 1, 525 000 ml @ 75 mls/hr IV . [id number] [facility] Rx#:[id number] Oral 0 Other: Voiding Method Diaper # Voids 1 1 - Exam General appearance: The patient is confused in restraints. HET: Head is normocephalic and atraumatic. Pupils are equal and reactive. Oropharynx is clear without lesions. Neck: Supple without lymphadenopathy. Trachea midline. Heart: S1 S2. Regular rate and rhythm. Lungs: No crackles or wheezes are heard. Abdomen: Soft, nontender, nondistended with bowel sounds. No peritoneal signs. No palpable organomegaly or masses. Extremities: Normal skin color and turgor. No cyanosis, rash, ulceration, clubbing, or edema. Radial and pedal pulses are 2/4 bilaterally. Neurological: No focal deficits. Strength and sensation are grossly intact. - Labs CBC & Chem 7: 02/08/18 05:57 02/08/18 05:57 Labs: Abnormal Lab Results - Last 24 Hours (Table) 02/07/18 02/07/18 02/08/18 Range/Units 11:27 16:48 05:57 WBC 12.0 H (3.8-10.6) k/uL RBC 2.77 L (4.30-5.90) m/uL Hgb 9.1 L (13.0-17.5) gm/dL Hct 26.4 L (39.0-53.0) % Neutrophils # 11.1 H (1.3-7.7) k/uL Lymphocytes # 0.5 L (1.0-4.8) k/uL Sodium (137-145) mmol/L BUN (9-20) mg/dL Creatinine (0.66-1.25) mg/dL Glucose (74-99) mg/dL POC Glucose (mg/dL) 164 H 139 H (75-99) mg/dL AST (17-59) U/L 02/08/18 Range/Units 05:57 WBC (3.8-10.6) k/uL RBC (4.30-5.90) m/uL Hgb (13.0-17.5) gm/dL Hct (39.0-53.0) % Neutrophils # (1.3-7.7) k/uL Lymphocytes # (1.0-4.8) k/uL Sodium 136 L (137-145) mmol/L BUN 7 L (9-20) mg/dL Creatinine 0.60 L (0.66-1.25) mg/dL Glucose 117 H (74-99) mg/dL POC Glucose (mg/dL) (75-99) mg/dL AST 118 H (17-59) U/L Assessment and Plan (1) Seizure disorder Narrative/Plan: 52 year old male admitted with seizure activity possible abdominal pain but presently without with elevated serum ammonia suspect metabolic possible hepatic with underlying history of ETOH abuse possible underlying alcohol liver disease. Ammonia improved with lactulose. Current Visit: Yes Status: Acute Code(s): G40.909 - EPILEPSY, UNSP, NOT INTRACTABLE, WITHOUT STATUS EPILEPTICUS SNOMED Code(s): 377400434 (2) Hyponatremia Narrative/Plan: Improved Current Visit: Yes Status: Acute Code(s): E87.1 - HYPO-OSMOLALITY AND HYPONATREMIA SNOMED Code(s): 52910865 (3) Chronic alcohol abuse Current Visit: No Status: Chronic Code(s): F10.10 - ALCOHOL ABUSE, UNCOMPLICATED SNOMED Code(s): 175749299 (4) Hyperammonemia Narrative/Plan: Resolved Current Visit: Yes Status: Resolved Code(s): E72.20 - DISORDER OF UREA CYCLE METABOLISM, UNSPECIFIED SNOMED Code(s): 6415592 (5) Hepatic steatosis Current Visit: Yes Status: Chronic Code(s): K76.0 - FATTY (CHANGE OF) LIVER , NOT ELSEWHERE CLASSIFIED SNOMED Code(s): 888392920 (6) Alcohol dependence with withdrawal Current Visit: No Status: Acute Code(s): F10.239 - ALCOHOL DEPENDENCE WITH WITHDRAWAL, UNSPECIFIED SNOMED Code(s): 42100044 Plan: 1. Supportive measures. Discontinue lactulose. Serum ammonia has normalized patient is not having diarrhea. Recheck ammonia in a.m if serum ammonia level increases restart lactulose. Assessment and plan of care discussed with Dr. Mayer
--- NOTE | 2018-02-08 11:56 | P.PN ---
Subjective Progress Note Date: 02/08/18 HPI: This is a 52-year-old male patient who came into the emergency room with seizure -like activity. He had full tonic-clonic seizures in the emergency room that lasted approximately 1.5 minutes and was witnessed. Patient was given Ativan 2 mg which did help him. This patient is well-known to our services and has had recent hospitalizations related to his alcohol use and DVTs. After the patient was postictal his pulse ox dropped to the low 80s despite given oxygen. The patient was started on BiPAP and ABGs were completed. The patient did respond well to the BiPAP. Patient also was noted to have a serum sodium of 123 and a chloride of 85. Serum alcohol was less than 10. The patient states that he drank 1 pint of vodka yesterday. And then he drinks approximately 1 pint of liquor per day. Upon examination the patient is resting up in bed on BiPAP, noted to have some mild tremors. He is oxygen sats are now in the mid 90s currently. He is maintained on CIWA protocol and getting Ativan as needed. She did receive a 1 L bolus upon arrival to the emergency room. Maintenance IV fluids will be ordered. Chest x-ray was reviewed and shows no acute process. He is afebrile. All labs and reports reviewed. 02/07/18- patient has been seen and examined and evaluated today on rounds. The patient is currently resting in bed on 2 L of supplemental oxygen via nasal cannula. He continues to be on CIWA protocol. Labs are reviewed and his magnesium continues to be low and replaced it is 1.2 today. Potassium is 3.8. Sodium is improved to 128. He does have some continued tremors and continues to have some confusion and hallucinations related to DVTs. Nephrology is also seeing the patient. External was consulted yesterday for acute abdominal pain abdominal x-rays were negative however the patient still has some tenderness to palpation to his abdomen. 02/08/18-patient is being seen examined and evaluated today on rounds. He is resting in bed on 2 L of supplemental oxygen via nasal cannula. The patient continues to be confused and hallucinating he continues on CIWA protocol with Ativan as needed. Per the nursing staff overnight the patient had increasing agitation and aggression towards the staff as well as became combative. Currently the patient is in restraints for medical healing and safety. His DTs continue. All labs and reports have been reviewed. His potassium is stable at 3.9 his sodium has improved to 136. His ammonia has improved to less than 9. His magnesium is not readily available we will have the lab at this onto his morning lab draw. GI also on the case and discussed the nurse practitioner. Objective - Vital Signs Vital signs: Vital Signs Temp 97 F L 02/08/18 07:53 Pulse 104 H 02/08/18 07:53 Resp 20 02/08/18 07:53 BP 156/77 02/08/18 07:53 Pulse Ox 99 02/08/18 07:53 Intake & Output 02/07/18 02/08/18 02/08/18 18:59 06:59 18:59 Intake Total 0 525 Balance 0 525 Weight 74.5 kg 77.5 kg Intake: Intake, IV Titration 525 Amount Sodium Chloride 0.9% 1, 525 000 ml @ 75 mls/hr IV . Q72P12L [facility] Rx#:[id number] Oral 0 Other: Voiding Method Diaper # Voids 1 1 - Exam GENERAL EXAM: Alert, confusion, hallucinations, comfortable in no apparent distress. HEAD: Normocephalic. EYES: Normal reaction of pupils, equal size. NOSE: Clear with pink turbinates. THROAT: No erythema or exudates. NECK: No masses, no JVD. CHEST: No chest wall deformity. LUNGS: Equal air entry with no crackles, wheeze, rhonchi or dullness. CVS: S1 and S2 normal with no audible mumurs, regular rhythm. ABDOMEN: No hepatosplenomegaly, normal bowel sounds, no guarding or rigidity. EXTREMITIES: No edema noted, pedal pulses palpable. SKIN: No rashes CENTRAL NERVOUS SYSTEM: Mild tremor related to DTs, tone is normal in all 4 extremities. - Labs CBC & Chem 7: 02/08/18 05:57 02/08/18 05:57 Labs: Abnormal Lab Results - Last 24 Hours (Table) 02/07/18 02/08/18 02/08/18 Range/Units 16:48 05:57 05:57 WBC 12.0 H (3.8-10.6) k/uL RBC 2.77 L (4.30-5.90) m/uL Hgb 9.1 L (13.0-17.5) gm/dL Hct 26.4 L (39.0-53.0) % Neutrophils # 11.1 H (1.3-7.7) k/uL Lymphocytes # 0.5 L (1.0-4.8) k/uL Sodium 136 L (137-145) mmol/L BUN 7 L (9-20) mg/dL Creatinine 0.60 L (0.66-1.25) mg/dL Glucose 117 H (74-99) mg/dL POC Glucose (mg/dL) 139 H (75-99) mg/dL AST 118 H (17-59) U/L Assessment and Plan Assessment: Assessment Seizure disorders, possibly related to alcohol withdrawal DTs related to alcohol withdrawal Acute hypoxic respiratory failure requiring supplemental oxygen and BiPAP post ictal Hyponatremia EtOH dependency Nicotine dependency Plan Medications have been reviewed and will be continued as ordered. Patient should be maintained on CIWA protocol. IV steroids. Maintenance IV fluids 75 an hour. Continue to monitor and replace electrolytes. Folate, thiamine, and multivitamin. Continue with pulmonary hygiene, coughing and deep breathing exercises, and supportive care. Supplemental oxygen or BiPap to maintain oxygen saturations of 92% or better. Initiate nebulizer treatments, and the form of inhaled steroids and bronchodilators. GI and DVT prophylaxis. Seizure and aspiration precautions. Abdominal ultrasound reviewed case discussed with GI nurse practitioner. Neurology also on consult. We will continue to monitor labs/results and adjust treatment as necessary. Further recommendations pending. I performed an examination of the patient and discussed their management with the nurse practitioner. I have reviewed the nurse practitioner's note and agree with the documented findings and plan of care.
--- NOTE | 2018-02-08 12:30 | P.CN ---
Psychiatric Consult - . Consult date: 02/08/18 Consult:: 02/08/18 12:12 Patient was seen for a psych consult regarding alcohol withdrawal. Apparently patient came to the hospital in an alcohol withdrawal state, had a seizure etc. Since coming to hospital, according to his nurse, he has been either too agitated or sleeping very soundly. Currently he is sound asleep and is in 4- point leather restraints. Patient has a long history of alcoholism and also has history of seizures. Apparently neurology service is following up regarding seizure activity. Patient has leukocytosis anemia, borderline hyponatremia and the computed tomography scan of the brain shows cerebral volume loss. Drug screening is positive for barbiturates and benzodiazepines. Patient's home medications do not include barbiturates or benzodiazepines. It is not clear if the drug screening was done after he received his Ativan in the ER or prior to that. If the drug screening was done before he got his Ativan in the ER, it is possible patient was abusing benzodiazepines and barbiturates. Apparently his previous medication includes [place] and drug screening is negative for opioids. Patient is treated for withdrawal with Ativan IV and he also has [place] when necessary. Suggestions: Continue treatment for alcohol withdrawal according to the hospital protocol. If collateral information can be obtained and if patient was abusing barbiturates also, withdrawal treatment will be complicated. Barbiturate withdrawal could be lot more dangerous than alcohol withdrawal and probably would need longer acting barbiturates. Use of narcotics in this patient can be problematic and would be better if it could be avoided. Periodic loosening of the leather restraints is needed to avoid injury.
[2018-02-08] MEDS ORDERED: Magnesium Replacement Protocol 1 EACH MISC MISCELLANE PRN (13:53)
[2018-02-08] MEDS: MULTIVITAMINS, THERA 1 EACH TAB PO SCH (14:10)
[2018-02-08] MEDS: FOLIC ACID 1 MG TAB PO SCH (14:10)
[2018-02-08] MEDS: THIAMINE 100 MG TAB PO SCH ×2 (14:11→17:06)
[2018-02-08] MEDS: MAGNESIUM SULFATE-D5W PMX 1 GM in DEXTROSE/WATER 1 100ML.BAG IVPB SCH ×2 (14:21→15:28)
[2018-02-08] MEDS: HYDROcodone/APAP 5-325MG 1 EACH TAB PO PRN (19:30)
--- NOTE | 2018-02-08 23:43 | PN ---
PROGRESS NOTE SUBJECTIVE: A 52-year-old white male, alcohol withdrawal, severe withdrawal. He has been placed in leather restraints last night. I took him out of leather restraints, as he is more cooperative today and less tremor. Psych consult is pending. White count is 12, hemoglobin is 9.1. Sodium 136, potassium 3.9. Ammonia level is less than 9. NEUROLOGIC: Mild tremors. PSYCH: He appears calm, giving appropriate answer. CARDIOVASCULAR: S1, S2. GI: Soft. HEMATOLOGY: Negative Homans'. PSYCH: Flat affect, but he is giving appropriate answers today. He says he is not going to punch or hit anybody like he has been doing for the last 2 days. That is why he has been in restraints. Psych saw him, they said put him on alcohol withdrawal protocol. No further recommendations per Psychiatry. Patient has poor outpatient care, does not follow up with any specific physician. He has not been in my office in well over a year. Prognosis extremely guarded as an outpatient, but is improved from admission at this point. IV fluids, IV steroids were given, BiPAP for hypoxemia continued. Please see further orders, pulmonary psychiatric referrals. MMODL / IJN: [id number] /
[2018-02-09 04:39] LABS: Glucose,Whole Blood 205 mg/dL (75-99)
[2018-02-09 07:30] LABS: Glucose,Whole Blood 141 mg/dL (75-99)
[2018-02-09] MEDS: IPRATROPIUM-ALBUTEROL 3 ML NEB INHALATION SCH ×3 (08:13→20:21)
[2018-02-09] MEDS: BUDESONIDE 1 MG/2 ML NEBU INHALATION SCH (08:13)
[2018-02-09 08:18] LABS: Basophils % (A) 0 %; Eosinophils # (A) 0.1 k/uL (0-0.7); Eosinophils % (A) 1 %; HCT 27.4 % (39.0-53.0); HGB 9.2 gm/dL (13.0-17.5); Lymphocytes % (A) 7 %; MCH 32.8 pg (25.0-35.0); MCHC 33.6 g/dL (31.0-37.0); MCV 97.6 fL (80.0-100.0); Mean Platelet Volume 7.5; Monocytes # (A) 0.6 k/uL (0-1.0); Monocytes % (A) 4 %; Neutrophils # (A) 11.9 k/uL (1.3-7.7); Neutrophils % (A) 86 %; Platelet Count 221 k/uL (150-450); RBC 2.81 m/uL (4.30-5.90); RDW 14.4 % (11.5-15.5); WBC 13.8 k/uL (3.8-10.6)
[2018-02-09] MEDS: PANTOPRAZOLE 40 MG TABLET PO SCH (09:25)
[2018-02-09] MEDS: LACTULOSE 20 GM/30 ML CUP PO SCH (09:25)
[2018-02-09] MEDS: methylPREDNISolone SOD SUCCI 125 MG/2 ML VIAL IV SCH (09:25)
[2018-02-09] MEDS: HEPARIN SODIUM,PORCINE 5,000 UNIT/ML 1 ML VIAL SQ SCH ×2 (09:25→20:19)
[2018-02-09] MEDS: ACETAMINOPHEN TAB 325 MG TAB PO PRN (09:28)
[2018-02-09] MEDS: SODIUM CHLORIDE 0.9% 1,000 ML IV SCH ×3 (09:29→12:03)
[2018-02-09] MEDS: MULTIVITAMINS, THERA 1 EACH TAB PO SCH (11:23)
[2018-02-09] MEDS: FOLIC ACID 1 MG TAB PO SCH (11:23)
[2018-02-09] MEDS: THIAMINE 100 MG TAB PO SCH ×2 (11:23→17:37)
[2018-02-09 11:31] LABS: ALT 53 U/L (21-72); AST 70 U/L (17-59); Albumin 3.7 g/dL (3.5-5.0); Alkaline Phosphatase 80 U/L (38-126); Anion Gap 8 mmol/L; Blood Urea Nitrogen 15 mg/dL (9-20); Calcium 8.5 mg/dL (8.4-10.2); Carbon Dioxide 27 mmol/L (22-30); Chloride 98 mmol/L (98-107); Glucose 109 mg/dL (74-99); Magnesium 1.7 mg/dL (1.6-2.3); Potassium 4.1 mmol/L (3.5-5.1); Sodium 133 mmol/L (137-145); Total Bilirubin 0.3 mg/dL (0.2-1.3); Total Protein 6.7 g/dL (6.3-8.2)
--- NOTE | 2018-02-09 11:53 | P.PN ---
Subjective Progress Note Date: 02/09/18 This is a 52-year-old male patient who came into the emergency room with seizure -like activity. He had full tonic-clonic seizures in the emergency room that lasted approximately 1.5 minutes and was witnessed. Patient was given Ativan 2 mg which did help him. This patient is well-known to our services and has had recent hospitalizations related to his alcohol use and DVTs. After the patient was postictal his pulse ox dropped to the low 80s despite given oxygen. The patient was started on BiPAP and ABGs were completed. The patient did respond well to the BiPAP. Patient also was noted to have a serum sodium of 123 and a chloride of 85. Serum alcohol was less than 10. The patient states that he drank 1 pint of vodka yesterday. And then he drinks approximately 1 pint of liquor per day. Upon examination the patient is resting up in bed on BiPAP, noted to have some mild tremors. He is oxygen sats are now in the mid 90s currently. He is maintained on CIWA protocol and getting Ativan as needed. She did receive a 1 L bolus upon arrival to the emergency room. Maintenance IV fluids will be ordered. Chest x-ray was reviewed and shows no acute process. He is afebrile. All labs and reports reviewed. 02/07/18- patient has been seen and examined and evaluated today on rounds. The patient is currently resting in bed on 2 L of supplemental oxygen via nasal cannula. He continues to be on CIWA protocol. Labs are reviewed and his magnesium continues to be low and replaced it is 1.2 today. Potassium is 3.8. Sodium is improved to 128. He does have some continued tremors and continues to have some confusion and hallucinations related to DVTs. Nephrology is also seeing the patient. External was consulted yesterday for acute abdominal pain abdominal x-rays were negative however the patient still has some tenderness to palpation to his abdomen. 02/08/18-patient is being seen examined and evaluated today on rounds. He is resting in bed on 2 L of supplemental oxygen via nasal cannula. The patient continues to be confused and hallucinating he continues on CIWA protocol with Ativan as needed. Per the nursing staff overnight the patient had increasing agitation and aggression towards the staff as well as became combative. Currently the patient is in restraints for medical healing and safety. His DTs continue. All labs and reports have been reviewed. His potassium is stable at 3.9 his sodium has improved to 136. His ammonia has improved to less than 9. His magnesium is not readily available we will have the lab at this onto his morning lab draw. GI also on the case and discussed the nurse practitioner. 02/09/2018: Patient seen and examined. Patient is out of 4. hard restraints. The patient is sitting up in bed talking on the phone. He is made aware that he almost from alcohol withdrawals and that usually strongly needs to consider rehab. He states he will think about it. He states that he does not have any chest pain or shortness of breath. He denies fevers or chills. Objective - Vital Signs Vital signs: Vital Signs Temp 97.7 F 02/09/18 07:00 Pulse 78 02/09/18 07:00 Resp 20 02/09/18 07:00 BP 128/81 02/09/18 07:00 Pulse Ox 96 02/09/18 07:00 Intake & Output 02/08/18 02/09/18 02/09/18 18:59 06:59 18:59 Intake Total 150 225 Balance 150 225 Intake: Intake, IV Titration 225 Amount Sodium Chloride 0.9% 1, 225 000 ml @ 75 mls/hr IV . [id number] [facility] Rx#:[id number] Oral 150 Other: Voiding Method Diaper Diaper # Voids 1 - Exam GENERAL EXAM: Alert and oriented 3 HEAD: Normocephalic. EYES: Normal reaction of pupils, equal size. NOSE: Clear with pink turbinates. THROAT: No erythema or exudates. NECK: No masses, no JVD. CHEST: No chest wall deformity. LUNGS: Scattered bilateral wheezing CVS: S1 and S2 normal with no audible mumurs, regular rhythm. ABDOMEN: No hepatosplenomegaly, normal bowel sounds, no guarding or rigidity. EXTREMITIES: No edema noted, pedal pulses palpable. SKIN: No rashes - Labs CBC & Chem 7: 02/09/18 07:50 02/09/18 07:50 Labs: Abnormal Lab Results - Last 24 Hours (Table) 02/09/18 02/09/18 02/09/18 Range/Units 04:26 07:09 07:50 WBC (3.8-10.6) k/uL RBC (4.30-5.90) m/uL Hgb (13.0-17.5) gm/dL Hct (39.0-53.0) % Neutrophils # (1.3-7.7) k/uL Sodium 133 L (137-145) mmol/L Creatinine 0.60 L (0.66-1.25) mg/dL Glucose 109 H (74-99) mg/dL POC Glucose (mg/dL) 205 H 141 H (75-99) mg/dL AST 70 H (17-59) U/L 02/09/18 Range/Units 07:50 WBC 13.8 H (3.8-10.6) k/uL RBC 2.81 L (4.30-5.90) m/uL Hgb 9.2 L (13.0-17.5) gm/dL Hct 27.4 L (39.0-53.0) % Neutrophils # 11.9 H (1.3-7.7) k/uL Sodium (137-145) mmol/L Creatinine (0.66-1.25) mg/dL Glucose (74-99) mg/dL POC Glucose (mg/dL) (75-99) mg/dL AST (17-59) U/L Assessment and Plan Assessment: Seizure disorders, related to alcohol withdrawal DTs related to alcohol withdrawal Acute hypoxic respiratory failure requiring supplemental oxygen and BiPAP post ictal, resolved Hyponatremia EtOH dependency Nicotine dependency Plan Medications have been reviewed and will be continued as ordered. Patient should be maintained on CIWA protocol. IV steroids taper. Decrease IVF to KVO, patient is tolerating diet. Continue to monitor and replace electrolytes. Folate, thiamine, and multivitamin. Continue with pulmonary hygiene, coughing and deep breathing exercises, and supportive care. Discontinue bipap. Continue nebulizer treatments, and the form of inhaled steroids and bronchodilators. GI and DVT prophylaxis. Seizure and aspiration precautions. Abdominal ultrasound reviewed case discussed with GI nurse practitioner. Neurology also on consult. We will continue to monitor labs/results and adjust treatment as necessary. Further recommendations pending. Psych recommendations. Patient would benefit from rehab placement, will consult social work and case management.
[2018-02-09] MEDS: CALCIUM CARBONATE 500 MG CHEWABLE PO PRN (13:44)
[2018-02-09] MEDS: HYDROcodone/APAP 5-325MG 1 EACH TAB PO PRN (20:18)
[2018-02-09] MEDS: methylPREDNISolone SOD SUCCI 40 MG/ML 1 ML VIAL IV SCH (20:19)
[2018-02-09] MEDS: BUDESONIDE 0.5 MG/2 ML NEBU INHALATION SCH (20:21)
[2018-02-09 20:56] LABS: Glucose,Whole Blood 138 mg/dL (75-99)
--- NOTE | 2018-02-09 22:05 | PN ---
PROGRESS NOTE SUBJECTIVE: A white male who appears more calm today, talking, eating good, not in restraints, giving appropriate answers. He wants to go on an antidepressant for bipolar. He feels he is very depressed. He has failed Zoloft as an outpatient. Discussed bipolar treatments with the patient, reviewed psychiatric consultations. CARDIOVASCULAR: S1, S2. LUNGS: Clear. NEUROLOGIC: Mild tremors. PSYCH: Fair mood and affect. Continue with current treatment pulses. Supposed to start Depakote for mood disorder. MMODL / IJN: [id number] /
[2018-02-09] MEDS: DIVALPROEX 250 MG TABLET.DR PO SCH (23:42)
[2018-02-10] MEDS: HYDROcodone/APAP 5-325MG 1 EACH TAB PO PRN (01:52)
[2018-02-10] MEDS: CALCIUM CARBONATE 500 MG CHEWABLE PO PRN (06:28)
[2018-02-10] MEDS: ACETAMINOPHEN TAB 325 MG TAB PO PRN ×2 (06:28→13:19)
[2018-02-10 07:11] VITALS: BP 120/70; RESP 18; TEMP 98.7
[2018-02-10] MEDS: methylPREDNISolone SOD SUCCI 40 MG/ML 1 ML VIAL IV SCH (07:35)
[2018-02-10] MEDS: PANTOPRAZOLE 40 MG TABLET PO SCH (07:35)
[2018-02-10] MEDS: LACTULOSE 20 GM/30 ML CUP PO SCH (07:35)
[2018-02-10] MEDS: DIVALPROEX 250 MG TABLET.DR PO SCH (07:35)
[2018-02-10] MEDS: HEPARIN SODIUM,PORCINE 5,000 UNIT/ML 1 ML VIAL SQ SCH (07:35)
[2018-02-10 08:29] LABS: Basophils % (A) 0 %; Eosinophils # (A) 0.1 k/uL (0-0.7); Eosinophils % (A) 1 %; HCT 26.9 % (39.0-53.0); HGB 9.1 gm/dL (13.0-17.5); Lymphocytes # (A) 1.9 k/uL (1.0-4.8); Lymphocytes % (A) 16 %; MCH 32.7 pg (25.0-35.0); MCHC 33.8 g/dL (31.0-37.0); Mean Platelet Volume 7.5; Monocytes # (A) 0.8 k/uL (0-1.0); Monocytes % (A) 7 %; Neutrophils # (A) 8.6 k/uL (1.3-7.7); Neutrophils % (A) 74 %; Platelet Count 242 k/uL (150-450); RBC 2.77 m/uL (4.30-5.90); RDW 14.2 % (11.5-15.5); WBC 11.6 k/uL (3.8-10.6)
[2018-02-10 08:38] LABS: ALT 51 U/L (21-72); AST 61 U/L (17-59); Albumin 3.6 g/dL (3.5-5.0); Alkaline Phosphatase 87 U/L (38-126); Anion Gap 7 mmol/L; Blood Urea Nitrogen 10 mg/dL (9-20); Calcium 8.6 mg/dL (8.4-10.2); Carbon Dioxide 28 mmol/L (22-30); Chloride 102 mmol/L (98-107); Glucose 99 mg/dL (74-99); Potassium 3.7 mmol/L (3.5-5.1); Sodium 137 mmol/L (137-145); Total Bilirubin 0.2 mg/dL (0.2-1.3); Total Protein 6.6 g/dL (6.3-8.2)
[2018-02-10] MEDS: IPRATROPIUM-ALBUTEROL 3 ML NEB INHALATION SCH ×2 (09:04→14:02)
[2018-02-10] MEDS: BUDESONIDE 0.5 MG/2 ML NEBU INHALATION SCH (09:04)
--- NOTE | 2018-02-10 11:58 | P.PN ---
Subjective Progress Note Date: 02/10/18 This is a 52-year-old male patient who came into the emergency room with seizure -like activity. He had full tonic-clonic seizures in the emergency room that lasted approximately 1.5 minutes and was witnessed. Patient was given Ativan 2 mg which did help him. This patient is well-known to our services and has had recent hospitalizations related to his alcohol use and DVTs. After the patient was postictal his pulse ox dropped to the low 80s despite given oxygen. The patient was started on BiPAP and ABGs were completed. The patient did respond well to the BiPAP. Patient also was noted to have a serum sodium of 123 and a chloride of 85. Serum alcohol was less than 10. The patient states that he drank 1 pint of vodka yesterday. And then he drinks approximately 1 pint of liquor per day. Upon examination the patient is resting up in bed on BiPAP, noted to have some mild tremors. He is oxygen sats are now in the mid 90s currently. He is maintained on CIWA protocol and getting Ativan as needed. She did receive a 1 L bolus upon arrival to the emergency room. Maintenance IV fluids will be ordered. Chest x-ray was reviewed and shows no acute process. He is afebrile. All labs and reports reviewed. 02/07/18- patient has been seen and examined and evaluated today on rounds. The patient is currently resting in bed on 2 L of supplemental oxygen via nasal cannula. He continues to be on CIWA protocol. Labs are reviewed and his magnesium continues to be low and replaced it is 1.2 today. Potassium is 3.8. Sodium is improved to 128. He does have some continued tremors and continues to have some confusion and hallucinations related to DVTs. Nephrology is also seeing the patient. External was consulted yesterday for acute abdominal pain abdominal x-rays were negative however the patient still has some tenderness to palpation to his abdomen. 02/08/18-patient is being seen examined and evaluated today on rounds. He is resting in bed on 2 L of supplemental oxygen via nasal cannula. The patient continues to be confused and hallucinating he continues on CIWA protocol with Ativan as needed. Per the nursing staff overnight the patient had increasing agitation and aggression towards the staff as well as became combative. Currently the patient is in restraints for medical healing and safety. His DTs continue. All labs and reports have been reviewed. His potassium is stable at 3.9 his sodium has improved to 136. His ammonia has improved to less than 9. His magnesium is not readily available we will have the lab at this onto his morning lab draw. GI also on the case and discussed the nurse practitioner. 02/09/2018: Patient seen and examined. Patient is out of 4. hard restraints. The patient is sitting up in bed talking on the phone. He is made aware that he almost from alcohol withdrawals and that usually strongly needs to consider rehab. He states he will think about it. He states that he does not have any chest pain or shortness of breath. He denies fevers or chills. 02/10/2018: Patient seen and examined. Patient is on room air. He states his breathing is good. He has no needs or complaints at this time. He is hoping to go home soon. Objective - Vital Signs Vital signs: Vital Signs Temp 98.7 F 02/10/18 07:00 Pulse 86 02/10/18 09:18 Resp 18 02/10/18 07:00 BP 120/70 02/10/18 07:00 Pulse Ox 97 02/10/18 09:06 Intake & Output 02/09/18 02/10/18 02/10/18 18:59 06:59 18:59 Output Total 700 600 Balance -700 -600 Output: Urine 700 600 Other: Voiding Method Toilet # Voids 1 - Exam GENERAL EXAM: Alert and oriented 3 HEAD: Normocephalic. EYES: Normal reaction of pupils, equal size. NOSE: Clear with pink turbinates. THROAT: No erythema or exudates. NECK: No masses, no JVD. CHEST: No chest wall deformity. LUNGS: Scattered bilateral wheezing CVS: S1 and S2 normal with no audible mumurs, regular rhythm. ABDOMEN: No hepatosplenomegaly, normal bowel sounds, no guarding or rigidity. EXTREMITIES: No edema noted, pedal pulses palpable. SKIN: No rashes - Labs CBC & Chem 7: 02/10/18 08:03 02/10/18 08:03 Labs: Abnormal Lab Results - Last 24 Hours (Table) 02/09/18 02/10/18 02/10/18 Range/Units 20:50 08:03 08:03 WBC 11.6 H (3.8-10.6) k/uL RBC 2.77 L (4.30-5.90) m/uL Hgb 9.1 L (13.0-17.5) gm/dL Hct 26.9 L (39.0-53.0) % Neutrophils # 8.6 H (1.3-7.7) k/uL Creatinine 0.61 L (0.66-1.25) mg/dL POC Glucose (mg/dL) 138 H (75-99) mg/dL AST 61 H (17-59) U/L Assessment and Plan Assessment: Seizure disorders, related to alcohol withdrawal DTs related to alcohol withdrawal Acute hypoxic respiratory failure requiring supplemental oxygen and BiPAP post ictal, resolved Hyponatremia EtOH dependency Nicotine dependency Toxic encephalopathy, resolved Plan Medications have been reviewed and will be continued as ordered. Patient should be maintained on CIWA protocol. IV steroids taper. Decrease IVF to KVO, patient is tolerating diet. Continue to monitor and replace electrolytes. Folate, thiamine, and multivitamin. Continue with pulmonary hygiene, coughing and deep breathing exercises, and supportive care. Discontinue bipap. Continue nebulizer treatments, and the form of inhaled steroids and bronchodilators. GI and DVT prophylaxis. Seizure and aspiration precautions. Abdominal ultrasound reviewed case discussed with GI nurse practitioner. Neurology also on consult. We will continue to monitor labs/results and adjust treatment as necessary. Further recommendations pending. Psych recommendations. Patient would benefit from rehab placement, will consult social work and case management.
[2018-02-10] MEDS: THIAMINE 100 MG TAB PO SCH (13:16)
[2018-02-10] MEDS: MULTIVITAMINS, THERA 1 EACH TAB PO SCH (13:16)
[2018-02-10] MEDS: FOLIC ACID 1 MG TAB PO SCH (13:16)
[2018-02-10] MEDS: SODIUM CHLORIDE 0.9% 1,000 ML IV SCH (13:17)
[2018-02-10 14:05] VITALS: PULSE 80
--- NOTE | 2018-02-11 08:16 | DS ---
DISCHARGE SUMMARY DISCHARGE MEDICATIONS: Discharge medications include: 1. Depakote 250 b.i.d. 2. Ventolin inhaler 2 puffs q.4 hours p.r.n. CONDITION: Stable. PROGNOSIS: Guarded. Ambulate as tolerated. Follow up in the office 1 to 2 days. 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 Psychiatry saw him. Neurology saw him. He was switched to oral Depakote as he is depressed and nothing has worked in the past. He has failed Zoloft. He is refusing psych kelly treatment or any transfer to any tertiary unit at this time. He will continue on current treatment and be discharged home today on Ventolin inhaler and Depakote. ANGELICA / SHAW: [id number] /
== END 2018-02-10 14:26 | disposition home or self-care (01) | DRG 100 ==
LOC: EC 03:36 → 6SEL 07:11 → 4MS4W 02-09 03:50
PROVIDERS: ADMIT Family Medicine; ATTEND Family Medicine
PROC: 5A09457 Assistance with Respiratory Ventilation, 24-96 Consecutive Hours, Continuous Positive Airway Pressure (ICD-10-PCS; principal; 2018-02-06)
DX: G40.509 Epileptic seizures related to external causes, not intractable, without status epilepticus (principal); G92 Toxic encephalopathy; J96.01 Acute respiratory failure with hypoxia; F10.231 Alcohol dependence with withdrawal delirium; E72.20 Disorder of urea cycle metabolism, unspecified; E87.1 Hypo-osmolality and hyponatremia; E87.8 Other disorders of electrolyte and fluid balance, not elsewhere classified; E83.42 Hypomagnesemia; D64.9 Anemia, unspecified; F17.200 Nicotine dependence, unspecified, uncomplicated; J44.9 Chronic obstructive pulmonary disease, unspecified; K21.9 Gastro-esophageal reflux disease without esophagitis; K76.0 Fatty (change of) liver, not elsewhere classified; F32.9 Major depressive disorder, single episode, unspecified; F41.9 Anxiety disorder, unspecified; K72.90 Hepatic failure, unspecified without coma; Z78.1 Physical restraint status; Z71.41 Alcohol abuse counseling and surveillance of alcoholic
CPT/HCPCS: 36415; 36600; 70450; 71045; 74022; 76705; 80053; 80306; 80320; 81003; 82140; 82805; 83735; 85025; 93005; 94640; 94644; 94660; 94760; 95816; 96361; 96365; 96366; 96367; 96372; 96375; 96376; 99291

== ENCOUNTER 2018-06-05 12:01 | Inpatient (IN) | payer OTHER ==
[2018-06-05] MEDS ORDERED: SUCCINYLCHOLINE CHLORIDE VIAL 200 MG/10 ML VIAL IV STA (12:14)
[2018-06-05] MEDS ORDERED: ETOMIDATE 2 MG/ML 10 ML VIAL IVP STA (12:14)
[2018-06-05] MEDS ORDERED: SODIUM CHLORIDE 0.9% 1,000 ML IV STA (12:16)
[2018-06-05] MEDS ORDERED: cefTRIAXone IN SWFI 2,000 MG/20 ML SYRINGE IVP STA (12:19)
[2018-06-05] MEDS ORDERED: ALBUTEROL NEBULIZED 2.5 MG/3 ML INHALATION STA (12:22)
[2018-06-05] MEDS ORDERED: methylPREDNISolone SOD SUCCI 125 MG/2 ML VIAL IV STA (12:24)
[2018-06-05] MEDS ORDERED: CLINDAMYCIN 900 MG in DEXTROSE 5% IN WATER 50 ML IVPB STA ×2 (12:24)
[2018-06-05] MEDS: SODIUM CHLORIDE 0.9% 1,000 ML IV STA ×2 (12:26→17:38)
--- NOTE | 2018-06-05 12:33 | XR ---
EXAMINATION TYPE: XR chest 1V portable DATE OF EXAM: 06/05/2018 COMPARISON: Chest x-ray February 06, 2018. HISTORY: Tube placement. TECHNIQUE: Single AP portable frontal supine view of the chest is obtained. FINDINGS: There is new endotracheal tube terminating between inferior clavicular margin and superior aortic knob, approximately 6 cm above steve. There is new orogastric tube now projecting below diap hragm, recommend advancing as tip is felt in the distal esophagus. Advise advancing 10 to 13 cm. Gas prominent stomach bubble is noted suggesting recent CPR. There is right lower lobe consolidation. Exam is suboptimal as entire right lateral lung base is not included. Left lung is clear. Cardiac silhouette size is within normal limits. There are old fracture deformities left lateral lower ribs. IMPRESSION: 1. New ET satisfactory in position. 2. New orogastric tube needs to be advanced 10 to 13 cm. 3. Suboptimal study with new right lower lobe consolidation, consider aspiration pneumonia. Correlate clinically.
[2018-06-05 12:40] LABS: ABG Base Excess -9.3 mmol/L; ABG HCO3 22 mmol/L (21-25); ABG Oxygen Saturation 96.6 % (94-97); ABG PO2 148 mmHg (83-108); ABG TCO2 25 mmol/L (19-24)
[2018-06-05 12:42] LABS: Anisocytosis Slight; HCT 32.7 % (39.0-53.0); HGB 10.2 gm/dL (13.0-17.5); Hypochromasia Slight; MCH 28.4 pg (25.0-35.0); MCHC 31.2 g/dL (31.0-37.0); Mean Platelet Volume 6.9; Platelet Count 677 k/uL (150-450); RBC 3.59 m/uL (4.30-5.90); RDW 18.4 % (11.5-15.5)
[2018-06-05 12:44] LABS: WBC 37.6 k/uL (3.8-10.6)
[2018-06-05 12:59] LABS: ABG PCO2 97 mmHg (35-45); ABG PH <7.00 (7.35-7.45)
[2018-06-05 13:00] LABS: Band Neutrophils % 4 %; Eosinophils # (M) 0.75 k/uL (0-0.7); Lymphocytes # (M) 4.51 k/uL (1.0-4.8); Metamyelocytes # (M) 0.38 k/uL (0); Metamyelocytes % 1 %; Monocytes # (M) 3.01 k/uL (0-1.0); Myelocytes # (M) 0.38 k/uL (0); Myelocytes % 1 %; Neutrophils % (M) 74 %; Nucleated Red Blood Cells 0 /100 WBC (0-0); Total Cells Counted 200
[2018-06-05 13:01] LABS: Toxic Granulation Present; Toxic Vacuolation Present
[2018-06-05 13:06] LABS: INR 1.2 (<1.2); Partial Thromboplastin Time 28.3 sec (22.0-30.0); Prothrombin Time 11.4 sec (9.0-12.0)
[2018-06-05] MEDS ORDERED: PROPOFOL 1,000 MG in EMPTY BAG 1 BAG IV ONE (13:07)
[2018-06-05 13:20] LABS: ALT 55 U/L (21-72); AST 108 U/L (17-59); Albumin 3.1 g/dL (3.5-5.0); Alkaline Phosphatase 116 U/L (38-126); Anion Gap 30 mmol/L; Blood Urea Nitrogen 10 mg/dL (9-20); Calcium 8.8 mg/dL (8.4-10.2); Carbon Dioxide 19 mmol/L (22-30); Glucose 202 mg/dL (74-99); Potassium 4.3 mmol/L (3.5-5.1); Sodium 127 mmol/L (137-145); Total Bilirubin 0.5 mg/dL (0.2-1.3); Total Protein 6.6 g/dL (6.3-8.2)
[2018-06-05 13:27] LABS: ABG HCO3 23 mmol/L (21-25); ABG Oxygen Saturation 99.8 % (94-97); ABG PCO2 65 mmHg (35-45); ABG PO2 331 mmHg (83-108); ABG TCO2 25 mmol/L (19-24)
[2018-06-05 13:27] LABS: Chloride 78 mmol/L (98-107)
[2018-06-05 13:31] LABS: ABG PH 7.15 (7.35-7.45)
[2018-06-05 13:50] LABS: Creatine Kinase MB 4.9 ng/mL (0.0-2.4); Troponin I 0.035 ng/mL (0.000-0.034)
--- NOTE | 2018-06-05 14:00 | CT ---
EXAMINATION TYPE: CT brain cspine wo con DATE OF EXAM: 06/05/2018 COMPARISON: CT brain and cervical spine February 02, 2018 HISTORY: Patient unresponsive at time of exam. (intubated) Fall. Headache and neck pain. CT DLP: 1147.9 mGycm. Automated Exposure Control for Dose Reduction was Utilized. TECHNIQUE: CT scan of the head and cervical spine are performed without contrast. FINDINGS: There is no acute intracranial hemorrhage or midline shift identified. There is ventricul ar and sulcal prominence consistent with mild to moderate age-related cerebral atrophy. Low-attenuati on in the periventricular white matter is redemonstrated. The calvarium is intact. The globes are int act and the visualized sinuses are clear. Cervical spine is visualized in its entirety from C1 through upper thoracic levels and demonstrates s traightened alignment without evidence of acute fracture or dislocation. Prevertebral soft tissue ap pears within normal limits. The C1-C2 articulation is within normal limits on the coronal images. Vertebral body heights and disc space heights are fairly well-maintained with mild disc space narrowi ng lower cervical levels redemonstrated. Spinal canal is grossly preserved. Review of axial images sh ows no suspicious abnormality. There is some coiling of the oral gastric tube in the posterior oropha rynx likely accounting for the tip above diaphragm on recent chest x-ray. There is partial visualizat ion of endotracheal tube. IMPRESSION: 1. There is no acute fracture or dislocation evident in the cervical spine. Some coiling of orogastri c tube in posterior oropharynx is noted. 2. No acute intracranial hemorrhage or midline shift is seen. Stable mild to moderate diffuse cerebra l atrophy and mild chronic small vessel ischemic change.
[2018-06-05] MEDS: fentaNYL (PF) 50 MCG/ML 2 ML AMP IVP STA ×2 (14:29→16:20)
--- NOTE | 2018-06-05 14:39 | XR ---
EXAMINATION TYPE: XR chest 1V portable DATE OF EXAM: 06/05/2018 COMPARISON: Chest x-ray earlier today. HISTORY: Persistent shortness of breath TECHNIQUE: Single frontal view of the chest is obtained. FINDINGS: There is stable appearance of endotracheal and orogastric tube. Orogastric tube needs to b e advanced. There is persistent right lower lobe consolidation. Cannot exclude small partially locula tay right lateral pleural effusion. Left lung remains clear. The cardiac silhouette size is within no rmal limits. Old lower left lateral rib fractures are redemonstrated. IMPRESSION: 1. Stable appearance of ET and OGT, recommend advancing OGT. 2. Better visualization of right lower lobe lateral aspect with persistent right lower lobe prominent consolidation and suspected lateral right pleural fluid collection or thickening.
[2018-06-05] MEDS ORDERED: NOREPINEPHRINE 4 MG in DEXTROSE 5% IN WATER 250 ML IV ONE ×4 (14:53→18:45)
[2018-06-05] MEDS ORDERED: SODIUM CHLORIDE 0.9% 1,000 ML IV ONE (14:58)
[2018-06-05] MEDS ORDERED: NOREPINEPHRINE 4 MG in DEXTROSE 5% IN WATER 250 ML IV SCH ×2 (15:00)
--- NOTE | 2018-06-05 15:03 | ED ---
SOB HPI - General Chief Complaint: Shortness of Breath Stated Complaint: Respiratory Distress Time Seen by Provider: 06/05/18 12:16 Source: EMS Mode of arrival: EMS Limitations: no limitations - History of Present Illness Initial Comments: Years old male was brought in by ambulance he does have a history of firm a car intoxication he fell, lost time his family so I'm doing well and was at 4 AM he was on the floor and EMS noticed that he was not breathing his O2 sat was 50% did try to put him on a nonrebreather that's probably O2 sat to low 70s and he stated didn't low 70 systolic to the to the ER on arrival he was only responding to the sternal rub he looked pale respiratory rate was about to 45 breaths per minute with tried to bag him and was hard to bag him review of system is not available as patient is unresponsive - Related Data Home Medications Medication Instructions Recorded Confirmed Albuterol Inhaler [Ventolin Hfa 1 - 2 puff INHALATION RT-Q4H PRN 06/05/18 Inhaler] Ferrous Sulfate [Feosol] 325 mg PO DAILY 06/05/18 06/05/18 Ibuprofen [Motrin] 800 mg PO TID PRN 06/05/18 06/05/18 Omeprazole 20 mg PO DAILY 06/05/18 06/05/18 Allergies Allergy/AdvReac Type Severity Reaction Status Date / Time No Known Allergies Allergy Verified 06/05/18 14:07 Review of Systems ROS Statement: Those systems with pertinent positive or pertinent negative responses have been documented in the HPI. ROS Other: All systems not noted in ROS Statement are negative. Past Medical History Past Medical History: COPD, GERD/Reflux, Seizure Disorder, Syncope Additional Past Medical History / Comment(s): ETOH abuse 4years, syncope with seizure related to alcohol withdrawal and delerium tremors, thrombocytopenia, falls and previously charted-encephalopathy. History of Any Multi-Drug Resistant Organisms: None Reported Past Surgical History: Ear Surgery, Tonsillectomy Additional Past Surgical History / Comment(s): nasal surgery "holes drilled in sinuses for drainage), vocal cord scraping, and bilateral ear surgery which pt believes was for "double mastoids" Past Anesthesia/Blood Transfusion Reactions: No Reported Reaction Past Psychological History: Anxiety, Bipolar, Depression Smoking Status: Current every day smoker - Past Family History Father Family Medical History: Cancer Additional Family Medical History / Comment(s): Stomach cancer. He is alive. Mother Family Medical History: No Reported History Additional Family Medical History / Comment(s): Mother is living and is healthy Brother(s) Additional Family Medical History / Comment(s): Bipolar, schizoprenia General Exam Limitations: no limitations Course Vital Signs 06/05/18 06/05/18 06/05/18 12:08 12:15 12:20 Temperature Pulse Rate 35 L 103 H 117 H Pulse Rate [ [employer] ] Respiratory 6 L 14 14 Rate Blood Pressure 79/46 O2 Sat by Pulse 97 91 L 95 Oximetry 06/05/18 06/05/18 06/05/18 12:29 12:35 12:43 Temperature 97.5 F L Pulse Rate 119 H 128 H 120 H Pulse Rate [ [employer] ] Respiratory 14 14 Rate Blood Pressure 120/63 124/67 O2 Sat by Pulse 99 100 Oximetry 06/05/18 06/05/18 06/05/18 12:50 13:09 13:24 Temperature Pulse Rate 129 H 128 H 118 H Pulse Rate [ [employer] ] Respiratory 14 20 20 Rate Blood Pressure 109/64 110/59 96/54 O2 Sat by Pulse 100 100 100 Oximetry 06/05/18 06/05/18 06/05/18 13:25 13:51 14:09 Temperature Pulse Rate 116 H 114 H Pulse Rate [ 118 H [employer] ] Respiratory 20 20 Rate Blood Pressure 90/54 92/50 O2 Sat by Pulse 100 72 L Oximetry 06/05/18 06/05/18 06/05/18 14:26 14:36 14:49 Temperature Pulse Rate 112 H 106 H 91 Pulse Rate [ [employer] ] Respiratory 20 20 20 Rate Blood Pressure 88/51 85/51 72/49 O2 Sat by Pulse 93 L 98 98 Oximetry 06/05/18 06/05/18 06/05/18 15:08 15:39 16:48 Temperature Pulse Rate 84 107 H 87 Pulse Rate [ [employer] ] Respiratory 20 20 20 Rate Blood Pressure 88/61 113/64 101/67 O2 Sat by Pulse 100 83 L 99 Oximetry Procedures - Central Line Placement Right IJ Consent Obtained: verbal consent Time Out Performed: Yes Patient Placed on Monitor/Pulse Ox: Yes Prep: mask, gown, gloves Central Line Prep: Chlorhexidine scrub Local Anesthesia Used: Lidocaine 1% Ultrasound Used for Placement: Yes Central Line Lumen Inserted: triple Bloods Obtained for Lab: No Central Line Position: good blood return, all ports aspirated, flushed, capped Dressing Applied: Tegaderm Post Procedure X-Ray: tip of catheter in good position Patient Tolerated Procedure: well Complications: none (he tolerated the procedure procedure well) - Intubation Sedative: Etomidate Laryngoscope: fiber optic video scope Size: 4 ET Tube Size: 8 ET Tube Uncuffed: No Tube Secured Depth (cm): 22 Tube Secured Location: lips Tube Placement Confirmation: visualized tube passing through cords Patient Tolerated Procedure: well (There was no pneumothorax) Medical Decision Making - Lab Data Result diagrams: 06/05/18 12:10 06/05/18 12:10 Lab Results 06/05/18 06/05/18 06/05/18 Range/Units 12:10 12:10 12:10 WBC 37.6 H* (3.8-10.6) k/uL RBC 3.59 L (4.30-5.90) m/uL Hgb 10.2 L (13.0-17.5) gm/dL Hct 32.7 L (39.0-53.0) % MCV 91.0 (80.0-100.0) fL MCH 28.4 (25.0-35.0) pg MCHC 31.2 (31.0-37.0) g/dL RDW 18.4 H (11.5-15.5) % Plt Count 677 H (150-450) k/uL Neutrophils % (Manual) 74 % Band Neutrophils % 4 % Lymphocytes % (Manual) 12 % Monocytes % (Manual) 8 % Eosinophils % (Manual) 2 % Metamyelocytes % 1 % Myelocytes % 1 % Neutrophils # (Manual) 29.30 H (1.3-7.7) k/uL Lymphocytes # (Manual) 4.51 (1.0-4.8) k/uL Monocytes # (Manual) 3.01 H (0-1.0) k/uL Eosinophils # (Manual) 0.75 H (0-0.7) k/uL Metamyelocytes # (Man) 0.38 H (0) k/uL Myelocytes # (Manual) 0.38 H (0) k/uL Nucleated RBCs 0 (0-0) /100 WBC Manual Slide Review Performed Toxic Granulation Present Toxic Vacuolation Present Hypochromasia Slight Anisocytosis Slight PT (9.0-12.0) sec INR (<1.2) APTT (22.0-30.0) sec Sample Site ABG pH (7.35-7.45) ABG pCO2 (35-45) mmHg ABG pO2 (83-108) mmHg ABG HCO3 (21-25) mmol/L ABG Total CO2 (19-24) mmol/L ABG O2 Saturation (94-97) % ABG Base Excess mmol/L Lul Test FiO2 % Sodium 127 L (137-145) mmol/L Potassium 4.3 (3.5-5.1) mmol/L Chloride 78 L* (98-107) mmol/L Carbon Dioxide 19 L (22-30) mmol/L Anion Gap 30 mmol/L BUN 10 (9-20) mg/dL Creatinine 0.90 (0.66-1.25) mg/dL Est GFR (CKD-EPI)AfAm >90 (>60 ml/min/1.73 sqM) Est GFR (CKD-EPI)NonAf >90 (>60 ml/min/1.73 sqM) Glucose 202 H (74-99) mg/dL Calcium 8.8 (8.4-10.2) mg/dL Total Bilirubin 0.5 (0.2-1.3) mg/dL AST 108 H (17-59) U/L ALT 55 (21-72) U/L Alkaline Phosphatase 116 (38-126) U/L Total Creatine Kinase 254 H (55-170) U/L CK-MB (CK-2) 4.9 H* (0.0-2.4) ng/mL CK-MB (CK-2) Rel Index 1.9 Troponin I 0.035 H* (0.000-0.034) ng/mL Total Protein 6.6 (6.3-8.2) g/dL Albumin 3.1 L (3.5-5.0) g/dL 06/05/18 06/05/18 06/05/18 Range/Units 12:10 12:31 13:23 WBC (3.8-10.6) k/uL RBC (4.30-5.90) m/uL Hgb (13.0-17.5) gm/dL Hct (39.0-53.0) % MCV (80.0-100.0) fL MCH (25.0-35.0) pg MCHC (31.0-37.0) g/dL RDW (11.5-15.5) % Plt Count (150-450) k/uL Neutrophils % (Manual) % Band Neutrophils % % Lymphocytes % (Manual) % Monocytes % (Manual) % Eosinophils % (Manual) % Metamyelocytes % % Myelocytes % % Neutrophils # (Manual) (1.3-7.7) k/uL Lymphocytes # (Manual) (1.0-4.8) k/uL Monocytes # (Manual) (0-1.0) k/uL Eosinophils # (Manual) (0-0.7) k/uL Metamyelocytes # (Man) (0) k/uL Myelocytes # (Manual) (0) k/uL Nucleated RBCs (0-0) /100 WBC Manual Slide Review Toxic Granulation Toxic Vacuolation Hypochromasia Anisocytosis PT 11.4 (9.0-12.0) sec INR 1.2 H (<1.2) APTT 28.3 (22.0-30.0) sec Sample Site Left Radial Left Radial ABG pH <7.00 L* 7.15 L* (7.35-7.45) ABG pCO2 97 H* 65 H (35-45) mmHg ABG pO2 148 H 331 H (83-108) mmHg ABG HCO3 22 23 (21-25) mmol/L ABG Total CO2 25 H 25 H (19-24) mmol/L ABG O2 Saturation 96.6 99.8 H (94-97) % ABG Base Excess -9.3 -6.0 mmol/L Lul Test Yes Yes FiO2 100 100 % Sodium (137-145) mmol/L Potassium (3.5-5.1) mmol/L Chloride (98-107) mmol/L Carbon Dioxide (22-30) mmol/L Anion Gap mmol/L BUN (9-20) mg/dL Creatinine (0.66-1.25) mg/dL Est GFR (CKD-EPI)AfAm (>60 ml/min/1.73 sqM) Est GFR (CKD-EPI)NonAf (>60 ml/min/1.73 sqM) Glucose (74-99) mg/dL Calcium (8.4-10.2) mg/dL Total Bilirubin (0.2-1.3) mg/dL AST (17-59) U/L ALT (21-72) U/L Alkaline Phosphatase (38-126) U/L Total Creatine Kinase (55-170) U/L CK-MB (CK-2) (0.0-2.4) ng/mL CK-MB (CK-2) Rel Index Troponin I (0.000-0.034) ng/mL Total Protein (6.3-8.2) g/dL Albumin (3.5-5.0) g/dL Critical Care Time Total Critical Care Time: 120 Critical Care Time: Arrival we intubated him mom as soon as IV access was established, because of he was so dehydrated IV access was quite hard it took us in a few minutes to establish that we give him etomidate 20 mg and Celexa 150 mg patient was intubated and intubation was confirmed bilateral breath sounds as well as x-ray x-ray revealed a bit today area of consolidation in the right lower lobe, white count is 37 with a massive left left shift patient was given and now fluid resuscitation along with 2 g of Rocephin as well as clindamycin to cover aspiration pneumonia the first ABG is revealed the pH was less than 6 is bicarb is 2220. The ABGs approximately hour later ABGs were significantly improved now pH is 7.15 bicarb is almost 23. Then he drops his O2 sat repeated suctions were done then he drops his blood pressure now after giving 2 L of fluids we can do a third liter of fluid and then now beginning to start him on now and now nor appendectomy drip he has a 2 small IVs peripherally. I plan to do a central line for "the is fine with the admission awaiting care back from Dr. Walker he be in the ICU Disposition Clinical Impression: Respiratory failure, Sepsis, Bradycardia, Hypotension Disposition: ADMITTED IP TO THIS HOSP
--- NOTE | 2018-06-05 17:03 | XR ---
EXAMINATION TYPE: XR chest 1V portable DATE OF EXAM: 06/05/2018 CLINICAL HISTORY: Central line placement. TECHNIQUE: Single AP portable supine view of the chest is obtained. COMPARISON: Chest x-ray from earlier today FINDINGS: There is new right internal jugular central venous catheter terminating at cavoatrial junc tion. There is stable appearance of orogastric and endotracheal tubes. There is persistent right basi lar consolidation and eccentric pleural thickening or effusion partially imaged. Current exam is subo ptimal as does not include entire right lateral lung base. There is new left basilar opacity suspicio us for small effusion and/or associated atelectasis and/or infiltrate. Old lateral lower rib fracture s are redemonstrated. Cardiac silhouette size remains within normal limits. IMPRESSION: 1. New right internal jugular central venous catheter with tip at caval atrial junction. No sizable p neumothorax. 2. Suboptimal study with persistent right basilar consolidation and lateral right basilar pleural thi ckening and/or effusion. New developing small left pleural effusion and/or left basilar atelectasis a nd/or infiltrate is felt present. Progress study advised.
[2018-06-05 17:22] LABS: Glucose,Whole Blood 133 mg/dL (75-99)
[2018-06-05] MEDS ORDERED: SODIUM CHLORIDE 0.9% 2,000 ML IV ONE (18:41)
[2018-06-05] MEDS: PROPOFOL 1,000 MG in EMPTY BAG 1 BAG IV SCH ×2 (18:43→19:45)
[2018-06-05] MEDS: NOREPINEPHRINE 4 MG in DEXTROSE 5% IN WATER 250 ML IV SCH ×2 (18:43)
[2018-06-05] MEDS ORDERED: IPRATROPIUM-ALBUTEROL 3 ML NEB INHALATION PRN (19:25)
[2018-06-05] MEDS ORDERED: LORazepam 2 MG/ML INJ IV PRN (19:25)
[2018-06-05] MEDS ORDERED: NALOXONE 0.4 MG/ML 1 ML VIAL IV PRN (19:25)
--- NOTE | 2018-06-05 19:42 | P.CNPUL ---
History of Present Illness Consult date: 06/05/18 Reason for consult: hypoxemia, other (ICU management, vent) Chief complaint: Unresponsive History of present illness: This is a 52-year-old gentleman who is well-known to [facility]. History is unable to be obtained from the patient as he is sedated on the ventilator. Per the emergency room note the patient was found unresponsive and EMS was called. The Patient's O2 saturation was 50%. He had minimal improvement on nonrebreather. The patient was to Make an hypoxic and subsequently intubated in the emergency room. The patient was found to have an elevated lactic acid of 12.6. He was profoundly acidotic with a pH of less than 7.0. The patient was hypotensive and started on Levophed. He is currently on 6 mcg/m of Levophed. He is having a large amount of green and secretions from the ET tube. It is assumed the patient aspirated. The patient is on 100% FiO2 and PEEP of 8. Bronchoscopy is performed to clear secretions. The patient has been given 2 L of IV fluids in the emergency room. He has maintenance fluids running at 100 mL per hour. He does intermittently respond to commands. The patient is a known alcoholic. He has had multiple admissions for alcohol intoxication and subsequently go through withdrawals. The patient has refused alcohol rehab in the past. The patient has required BiPAP in the past. He does drink about a pound of vodka daily. The patient's chest x-ray shows right lower lobe infiltrate. EKG shows sinus tachycardia. He also has slightly elevated troponins. Review of Systems ROS unobtainable: due to endotracheal tube Past Medical History Past Medical History: COPD, GERD/Reflux, Seizure Disorder, Syncope Additional Past Medical History / Comment(s): ETOH abuse 4years, syncope with seizure related to alcohol withdrawal and delerium tremors, thrombocytopenia, falls and previously charted-encephalopathy. 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 He is alive. Mother Family Medical History: No Reported History Additional Family Medical History / Comment(s): Mother is living and is healthy Brother(s) Additional Family Medical History / Comment(s): Bipolar, schizoprenia Medications and Allergies Home Medications Medication Instructions Recorded Confirmed Type Albuterol Inhaler [Ventolin Hfa 1 - 2 puff INHALATION RT-Q4H PRN 06/05/18 History Inhaler] Ferrous Sulfate [Feosol] 325 mg PO DAILY 06/05/18 06/05/18 History Ibuprofen [Motrin] 800 mg PO TID PRN 06/05/18 06/05/18 History Omeprazole 20 mg PO DAILY 06/05/18 06/05/18 History Allergies Allergy/AdvReac Type Severity Reaction Status Date / Time No Known Allergies Allergy Verified 06/05/18 14:07 Physical Exam Osteopathic Statement: *. No significant issues noted on an osteopathic structural exam other than those noted in the History and Physical/Consult. Vitals: Vital Signs Temp Pulse Pulse Resp BP Pulse Ox 06/05/18 19:00 101 H 20 99/84 100 06/05/18 18:45 89 20 91/61 100 06/05/18 18:30 91 20 80/58 98 06/05/18 18:15 93 20 89/61 96 06/05/18 18:00 91 20 93/64 97 06/05/18 17:45 92 20 106/79 98 06/05/18 17:30 90 20 98/60 96 06/05/18 17:18 97.9 F 91 20 105/69 98 06/05/18 17:07 96 F L 89 20 105/69 100 06/05/18 16:48 87 20 101/67 99 06/05/18 15:39 107 H 20 113/64 83 L 06/05/18 15:08 84 20 88/61 100 06/05/18 14:49 91 20 72/49 98 06/05/18 14:36 106 H 20 85/51 98 06/05/18 14:26 112 H 20 88/51 93 L 06/05/18 14:09 114 H 20 92/50 72 L 06/05/18 13:51 116 H 20 90/54 100 06/05/18 13:25 118 H 06/05/18 13:24 118 H 20 96/54 100 06/05/18 13:09 128 H 20 110/59 100 06/05/18 12:50 129 H 14 109/64 100 06/05/18 12:43 97.5 F L 120 H 14 124/67 100 06/05/18 12:35 128 H 06/05/18 12:29 119 H 14 120/63 99 06/05/18 12:20 117 H 14 79/46 95 06/05/18 12:15 103 H 14 91 L 06/05/18 12:08 35 L 6 L 97 Intake and Output 06/05/18 06/05/18 06/05/18 06:59 14:59 22:59 Intake Total 18.343 1230.522 Output Total 435 Balance 18.343 795.522 Intake: IV 1200 Sodium Chloride 0.9% 1, 200 000 ml @ 100 mls/hr IV . Q10H STA Rx#:[id number] Sodium Chloride 0.9% 2, 1000 000 ml @ 999 mls/hr IV . Q2H1M ONE Rx#:[id number] Intake, IV Titration 18.343 30.522 Amount Norepinephrine 4 mg In 25.625 Dextrose 5% in Water 250 ml @ Titrate IV .Q0M ONE Rx#:[id number] Propofol 1,000 mg In 18.343 4.897 Empty Bag 1 bag @ Titrate IV .Q0M ONE Rx#: [id number] Output: Gastric Drainage 250 Urine 185 Other: Voiding Method Indwelling Catheter Weight 83.007 kg Gen.: Patient is sedated and intubated on full ventilator support, he does follow commands intermittently Cardiovascular: Tachycardic, regular rate and rhythm, S1/S2 Lungs: Coarse breath sounds bilaterally, green tea and copious secretions in the ET tube Abdomen: Soft nontender nondistended positive bowel sounds Extremities: No edema Results - Laboratory Findings CBC and BMP: 06/05/18 12:10 06/05/18 12:10 ABG ABG pH 7.15 (7.35-7.45) L* 06/05/18 13:23 ABG pCO2 65 mmHg (35-45) H 06/05/18 13:23 ABG pO2 331 mmHg (83-108) H 06/05/18 13:23 ABG O2 Saturation 99.8 % (94-97) H 06/05/18 13:23 PT/INR, D-dimer PT 11.4 sec (9.0-12.0) 06/05/18 12:10 INR 1.2 (<1.2) H 06/05/18 12:10 Abnormal lab findings: Abnormal Labs 06/05/18 06/05/18 06/05/18 12:10 12:10 12:10 WBC 37.6 H* RBC 3.59 L Hgb 10.2 L Hct 32.7 L RDW 18.4 H Plt Count 677 H Neutrophils # (Manual) 29.30 H Monocytes # (Manual) 3.01 H Eosinophils # (Manual) 0.75 H Metamyelocytes # (Man) 0.38 H Myelocytes # (Manual) 0.38 H INR ABG pH ABG pCO2 ABG pO2 ABG Total CO2 ABG O2 Saturation Sodium 127 L Chloride 78 L* Carbon Dioxide 19 L Glucose 202 H POC Glucose (mg/dL) Plasma Lactic Acid Hsoaib AST 108 H Total Creatine Kinase 254 H CK-MB (CK-2) 4.9 H* Troponin I 0.035 H* Albumin 3.1 L 06/05/18 06/05/18 06/05/18 12:10 12:10 12:31 WBC RBC Hgb Hct RDW Plt Count Neutrophils # (Manual) Monocytes # (Manual) Eosinophils # (Manual) Metamyelocytes # (Man) Myelocytes # (Manual) INR 1.2 H ABG pH <7.00 L* ABG pCO2 97 H* ABG pO2 148 H ABG Total CO2 25 H ABG O2 Saturation Sodium Chloride Carbon Dioxide Glucose POC Glucose (mg/dL) Plasma Lactic Acid Shoaib 12.6 H* AST Total Creatine Kinase CK-MB (CK-2) Troponin I Albumin 06/05/18 06/05/18 13:23 17:20 WBC RBC Hgb Hct RDW Plt Count Neutrophils # (Manual) Monocytes # (Manual) Eosinophils # (Manual) Metamyelocytes # (Man) Myelocytes # (Manual) INR ABG pH 7.15 L* ABG pCO2 65 H ABG pO2 331 H ABG Total CO2 25 H ABG O2 Saturation 99.8 H Sodium Chloride Carbon Dioxide Glucose POC Glucose (mg/dL) 133 H Plasma Lactic Acid Shoaib AST Total Creatine Kinase CK-MB (CK-2) Troponin I Albumin - Diagnostic Findings Chest x-ray: report reviewed, image reviewed Assessment and Plan Assessment: Acute hypoxic and hypercapnic respiratory failure Toxic metabolic encephalopathy, suspect alcohol intoxication Severe lactic acidosis Anion gap metabolic acidosis Severe dehydration Aspiration pneumonia NSTEMI Septic shock Leukocytosis Anemia, normochromic, normocytic Sinus tachycardia History of DVTs and seizure disorder Hyponatremia Nicotine dependence Hyperglycemia Alcohol abuse Continue full ventilator support Bronchoscopy for secretion clearance 2 L IV fluid bolus now Levophed to maintain map greater than 65, systolic blood pressure greater than 90 CVP monitoring and central line Repeat lactic acid improved Blood, urine, sputum cultures Antibiotics: Levaquin and Clinda Monitor urine output and renal function Insulin sliding scale and Accu-Cheks Duo nebs and Pulmicort CIWA protocol Check alcohol level, UDS, ammonia level Propofol for sedation Maintenance IV fluids at 100 mL per hour GI and DVT prophylaxis Consult PT and OT for early mobility Will initiate tube feeds down the OG tube in the next 24 hours A.m. chest x-ray and ABG Thiamine, folate, multivitamin Seizure and aspiration precautions Patient's mother is updated to patient's condition, plan of care, and need for bronchoscopy. She gives phone consent. She is on her way from [place] and will be here early in the morning. CCT 68 min Time with Patient: Greater than 30
--- NOTE | 2018-06-05 19:47 | P.PCN ---
Date of Procedure: 06/05/18 Preoperative Diagnosis: Aspiration pneumonia Postoperative Diagnosis: Same Procedure(s) Performed: Flexible bronschoscopy Surgeon: Esha Ambrose Estimated Blood Loss (ml): 0 Condition: critical Disposition: ICU Indications for Procedure: Massive aspiration Aspiraton pneumonia Hypoxic, hypercapnic respiratory failure Operative Findings: Copious oh-green secretions noted bilaterally Description of Procedure: After review of risks and benefits and discussion of alternative methods of diagnosis, the patient's next of kin provided informed consent and is willing to proceed with evaluation is recommended. The patient, in the ICU, was placed on continuous electrocardiogram, noninvasive blood pressure monitoring, and SpO2 monitoring. The video bronchoscope was passed through the ETT and carried down to the level of the of the steve. The steve was sharp. The right mainstem bronchus was entered first where the right upper lobe, right middle lobe, and right lower lobe were identified. The patient was found to have copious oh-green secretions. Saline was instilled and suctioned until secretions were cleared. The bronchoscope was then directed into the left mainstem bronchus. The left upper lobe, lingula, and left lower lobe were visualized. Again, the patient was found to have copious oh-green secretions. Saline was instilled and suctioned until secretions were cleared. The bronchoscope was then retracted and the procedure was terminated. The patient tolerated the procedure well. He will remain in the intensive care unit. He is in critical condition. Specimens will be sent for grams stain and culture.
[2018-06-05] MEDS ORDERED: LEVOFLOXACIN 500MG-D5W PMX 500 MG in DEXTROSE/WATER 1 100ML.BAG IVPB SCH (20:00)
[2018-06-05] MEDS: PANTOPRAZOLE 40 MG/10 ML VIAL IV SCH (20:22)
[2018-06-05] MEDS: HEPARIN SODIUM,PORCINE 5,000 UNIT/ML 1 ML VIAL SQ SCH (20:30)
[2018-06-05] MEDS: 1: MVI, ADULT NO.4 WITH VIT K 10 ML, THIAMINE 100 MG, FOLIC ACID 1 MG in SODIUM CHLORIDE IV SCH ×4 (20:39)
[2018-06-05 20:56] LABS: Glucose,Whole Blood 131 mg/dL (75-99)
[2018-06-05] MEDS ORDERED: INSULIN ASPART 100 UNIT/ML 1 ML 10 ML VIAL SQ SCH ×2 (21:00)
[2018-06-05] MEDS: CHLORHEXIDINE GLUCONATE 15 ML CUP MUCOUS MEM SCH (21:03)
[2018-06-05] MEDS: IPRATROPIUM-ALBUTEROL 3 ML NEB INHALATION SCH ×2 (21:06→23:20)
[2018-06-05] MEDS: BUDESONIDE 0.5 MG/2 ML NEBU INHALATION SCH (21:06)
[2018-06-05 21:36] LABS: Appearance,Urine Clear (Clear); Bacteria,Urine Rare /hpf; Bilirubin,Urine Negative (Negative); Blood,Urine Small (Negative); Color,Urine Light Yellow; Glucose,Urine (UA) Negative (Negative); Ketones,Urine Negative (Negative); Leukocyte Esterase,Urine Negative (Negative); Nitrite,Urine Negative (Negative); Protein,Urine Negative (Negative); RBC,Urine 1 /hpf (0-5); Specific Gravity,Urine 1.003 (1.001-1.035); Squamous Epithelial Cell,Urine <1 /hpf (0-4); Urobilinogen,Urine <2.0 mg/dL (<2.0); WBC,Urine 2 /hpf (0-5)
[2018-06-05 23:46] LABS: Glucose,Whole Blood 165 mg/dL (75-99)
[2018-06-05] MEDS: INSULIN ASPART 100 UNIT/ML 1 ML 10 ML VIAL SQ SCH (23:48)
[2018-06-05] MEDS: CLINDAMYCIN 600 MG in DEXTROSE 5% IN WATER 50 ML IVPB SCH ×2 (23:48)
[2018-06-06] MEDS: IPRATROPIUM-ALBUTEROL 3 ML NEB INHALATION SCH ×6 (03:16→23:06)
[2018-06-06] MEDS: NOREPINEPHRINE 4 MG in DEXTROSE 5% IN WATER 250 ML IV SCH ×6 (03:27→20:56)
[2018-06-06 04:15] LABS: ABG Base Excess 2.9 mmol/L; ABG HCO3 29 mmol/L (21-25); ABG Oxygen Saturation 95.8 % (94-97); ABG PCO2 55 mmHg (35-45); ABG PH 7.33 (7.35-7.45); ABG PO2 85 mmHg (83-108); ABG TCO2 31 mmol/L (19-24)
[2018-06-06] MEDS: PROPOFOL 1,000 MG in EMPTY BAG 1 BAG IV SCH ×4 (04:34→23:43)
[2018-06-06 05:20] LABS: Anisocytosis Slight; HGB 9.2 gm/dL (13.0-17.5); Hypochromasia Slight; MCH 28.7 pg (25.0-35.0); MCHC 31.8 g/dL (31.0-37.0); MCV 90.2 fL (80.0-100.0); Mean Platelet Volume 6.2; Platelet Count 543 k/uL (150-450); RBC 3.21 m/uL (4.30-5.90); RDW 18.8 % (11.5-15.5)
[2018-06-06 05:35] LABS: INR 1.3 (<1.2); Partial Thromboplastin Time 25.4 sec (22.0-30.0)
[2018-06-06] MEDS: LORazepam 2 MG/ML INJ IV PRN ×2 (05:40→15:16)
[2018-06-06 05:51] LABS: Glucose,Whole Blood 182 mg/dL (75-99)
[2018-06-06 05:51] LABS: Anion Gap 11 mmol/L; Blood Urea Nitrogen 11 mg/dL (9-20); Calcium 7.6 mg/dL (8.4-10.2); Carbon Dioxide 28 mmol/L (22-30); Chloride 92 mmol/L (98-107); Glucose 149 mg/dL (74-99); Magnesium 1.3 mg/dL (1.6-2.3); Phosphorus 4.5 mg/dL (2.5-4.5); Potassium 3.5 mmol/L (3.5-5.1); Sodium 131 mmol/L (137-145)
[2018-06-06] MEDS: INSULIN ASPART 100 UNIT/ML 1 ML 10 ML VIAL SQ SCH ×6 (05:52→23:57)
[2018-06-06 06:07] LABS: WBC 42.2 k/uL (3.8-10.6)
[2018-06-06 06:45] LABS: Band Neutrophils % 10 %; Lymphocytes # (M) 0.42 k/uL (1.0-4.8); Metamyelocytes # (M) 0.42 k/uL (0); Metamyelocytes % 1 %; Monocytes # (M) 1.27 k/uL (0-1.0); Myelocytes # (M) 0.42 k/uL (0); Myelocytes % 1 %; Neutrophils % (M) 86 %; Nucleated Red Blood Cells 0 /100 WBC (0-0); Total Cells Counted 200
[2018-06-06 06:46] LABS: Poikilocytosis (M) Present; Toxic Granulation Present
[2018-06-06] MEDS: BUDESONIDE 0.5 MG/2 ML NEBU INHALATION SCH ×2 (07:22→19:27)
[2018-06-06] MEDS ORDERED: Potassium Replacement Protocol 1 EACH MISC MISCELLANE PRN (07:23)
[2018-06-06] MEDS ORDERED: Magnesium Replacement Protocol 1 EACH MISC MISCELLANE PRN (07:24)
[2018-06-06] MEDS: POTASSIUM CHLORIDE 20 MEQ in WATER FOR INJECTION 1 100ML.BAG IVPB SCH ×2 (07:44→09:42)
[2018-06-06] MEDS: MAGNESIUM SULFATE-D5W PMX 1 GM in DEXTROSE/WATER 1 100ML.BAG IVPB SCH ×3 (07:44→09:42)
--- NOTE | 2018-06-06 08:24 | XR ---
EXAMINATION TYPE: XR chest 1V portable DATE OF EXAM: 06/06/2018 COMPARISON: 06/05/2018 HISTORY: Central line placement. TECHNIQUE: Single frontal view of the chest is obtained. FINDINGS: Right internal jugular central venous catheter has been placed with the Sissel tip in the superior vena cava/right atrial junction. Endotracheal tube and enteric tube are similar in position. Enteric tube could be advanced approximately 3.5 cm for more optimal placement as it is slightly cep halad in position. There is redemonstration of lateral left rib fractures some of which are healed. Possibly loculated r ight pleural effusion is again small with persistent multifocal patchy airspace disease, right greate r than left. Cardia mediastinal silhouette is partially obscured but within normal limits. Probable t race left pleural effusion is also noted blunting the costophrenic angle. IMPRESSION: 1. Stable positioning of lines and tubes. The enteric tube slightly cephalad and could be advanced ap proximately 3.5 cm for optimal placement. 2. Persistent small right, possibly loculated, and probable trace left pleural effusions with multifo snow airspace disease similar to the prior.
[2018-06-06] MEDS: 1: MVI, ADULT NO.4 WITH VIT K 10 ML, THIAMINE 100 MG, FOLIC ACID 1 MG in SODIUM CHLORIDE IV SCH ×8 (08:25→18:46)
[2018-06-06] MEDS: CLINDAMYCIN 600 MG in DEXTROSE 5% IN WATER 50 ML IVPB SCH ×2 (08:29)
[2018-06-06] MEDS: HEPARIN SODIUM,PORCINE 5,000 UNIT/ML 1 ML VIAL SQ SCH ×3 (08:30→23:42)
[2018-06-06] MEDS: PANTOPRAZOLE 40 MG/10 ML VIAL IV SCH (08:30)
[2018-06-06] MEDS: CHLORHEXIDINE GLUCONATE 15 ML CUP MUCOUS MEM SCH ×2 (08:30→22:15)
--- NOTE | 2018-06-06 10:07 | P.PN ---
<Judith Singletary E - Last Filed: 06/06/18 09:52> Subjective Progress Note Date: 06/06/18 History of present illness: This is a 52-year-old gentleman who is well-known to [facility]. History is unable to be obtained from the patient as he is sedated on the ventilator. Per the emergency room note the patient was found unresponsive and EMS was called. The Patient's O2 saturation was 50%. He had minimal improvement on nonrebreather. The patient was to Make an hypoxic and subsequently intubated in the emergency room. The patient was found to have an elevated lactic acid of 12.6. He was profoundly acidotic with a pH of less than 7.0. The patient was hypotensive and started on Levophed. He is currently on 6 mcg/m of Levophed. He is having a large amount of green and secretions from the ET tube. It is assumed the patient aspirated. The patient is on 100% FiO2 and PEEP of 8. Bronchoscopy is performed to clear secretions. The patient has been given 2 L of IV fluids in the emergency room. He has maintenance fluids running at 100 mL per hour. He does intermittently respond to commands. The patient is a known alcoholic. He has had multiple admissions for alcohol intoxication and subsequently go through withdrawals. The patient has refused alcohol rehab in the past. The patient has required BiPAP in the past. He does drink about a pound of vodka daily. The patient's chest x-ray shows right lower lobe infiltrate. EKG shows sinus tachycardia. He also has slightly elevated troponins. Interval History: 06/06/18- patient is being seen examined and evaluated today on rounds. He is on mechanical ventilation with propofol for sedation. Current mechanical ventilation settings are assist control mode with a respiratory rate of 20, tidal volume of 550, FiO2 of 70%, and a PEEP of 8. Currently he is on Levophed at 8 mics, and propofol at 30 mics. OG tube has green bile like output, ET tube continues to have green tea-like secretions. He has been making urine. He has got a total of 4 L of fluid resuscitation. His ABGs from this morning reveal a pH of 7.33, pCO2 of 55, pO2 of 85 and HCO3 of 29. Dietary is on board and will be starting tube feeds today. His potassium is 3.5 is being replaced his magnesium is 1.3 and being replaced. His chest x-ray was reviewed and lines are stable ET tube can be advanced to 3 cm. He has a persistent right loculated pleural effusion and a trace left pleural effusion. Infectious disease has been consulted. He continues on antibiotics. Mother is at bedside updated on plan of care. No plans for extubation today. Objective - Vital Signs Vital signs: Vital Signs Temp 99.9 F H 06/06/18 08:00 Pulse 92 06/06/18 09:00 Resp 22 06/06/18 09:00 BP 98/61 06/06/18 09:00 Pulse Ox 99 06/06/18 09:00 Intake & Output 06/05/18 06/06/18 06/06/18 18:59 06:59 18:59 Intake Total 037.921 0294.448 716 Output Total 60 2750 635 Balance 188.865 875.448 81 Weight 83.007 kg 81.9 kg Intake: IV 200 3260 716 0.9 at KVO 40 0.9 for pressure bag 6 Clindamycin 600 mg In 50 50 Dextrose 5% in Water 50 ml @ 100 mls/hr IVPB Q8HR [facility] Rx#:[id number] Levofloxacin 500Mg-D5w 100 Pmx 500 mg In Dextrose/ Water 1 100ml.bag @ 100 mls/hr IVPB Q24H [facility] Rx#: [id number] Magnesium Sulfate-D5w Pmx 200 1 gm In Dextrose/Water 1 100ml.bag @ 100 mls/hr IVPB Q1H [facility] Rx#: [id number] Mvi, Adult No.4 with Vit 900 300 K 10 ml Thiamine 100 mg Folic Acid 1 mg In Sodium Chloride 0.9% 1,000 ml @ 100 mls/hr IV .BY DURATION [facility] Rx#: [id number] Potassium Chloride 20 meq 100 In Water For Injection 1 100ml.bag @ 50 mls/hr IVPB Q2H [facility] Rx#: [id number] Sodium Chloride 0.9% 1, 200 210 20 000 ml @ 100 mls/hr IV . Q10H [facility] Rx#:[id number] Sodium Chloride 0.9% 2, 2000 000 ml @ 999 mls/hr IV . Q2H1M [facility] Rx#:[id number] Intake, IV Titration 48.865 365.448 Amount Norepinephrine 4 mg In 25.625 Dextrose 5% in Water 250 ml @ Titrate IV .Q0M [facility] Rx#:[id number] Norepinephrine 4 mg In 242.00 Dextrose 5% in Water 250 ml @ Titrate IV .Q0M [facility] Rx#:[id number] Propofol 1,000 mg In 23.240 Empty Bag 1 bag @ Titrate IV .Q0M [facility] Rx#: [id number] Propofol 1,000 mg In 123.448 Empty Bag 1 bag @ Titrate IV .Q0M [facility] Rx#: [id number] Output: Gastric Drainage 250 250 Urine 60 2500 385 Other: Voiding Method Indwelling Catheter Indwelling Catheter Indwelling Catheter - Exam Gen.: Patient is sedated and intubated on full ventilator support, he does follow commands intermittently Cardiovascular: Tachycardic, regular rate and rhythm, S1/S2 Lungs: Coarse breath sounds bilaterally, green tea and copious secretions in the ET tube Abdomen: Soft nontender nondistended positive bowel sounds, green bile secreations from OG tube Extremities: No edema Neuro: on sedation - Labs CBC & Chem 7: 06/06/18 04:30 06/06/18 04:30 Labs: Abnormal Lab Results - Last 24 Hours (Table) 06/05/18 06/05/18 06/05/18 Range/Units 12:10 12:10 12:10 WBC 37.6 H* (3.8-10.6) k/uL RBC 3.59 L (4.30-5.90) m/uL Hgb 10.2 L (13.0-17.5) gm/dL Hct 32.7 L (39.0-53.0) % RDW 18.4 H (11.5-15.5) % Plt Count 677 H (150-450) k/uL Neutrophils # (Manual) 29.30 H (1.3-7.7) k/uL Lymphocytes # (Manual) (1.0-4.8) k/uL Monocytes # (Manual) 3.01 H (0-1.0) k/uL Eosinophils # (Manual) 0.75 H (0-0.7) k/uL Metamyelocytes # (Man) 0.38 H (0) k/uL Myelocytes # (Manual) 0.38 H (0) k/uL INR (<1.2) ABG pH (7.35-7.45) ABG pCO2 (35-45) mmHg ABG pO2 (83-108) mmHg ABG HCO3 (21-25) mmol/L ABG Total CO2 (19-24) mmol/L ABG O2 Saturation (94-97) % Sodium 127 L (137-145) mmol/L Chloride 78 L* (98-107) mmol/L Carbon Dioxide 19 L (22-30) mmol/L Glucose 202 H (74-99) mg/dL POC Glucose (mg/dL) (75-99) mg/dL Plasma Lactic Acid Shoaib (0.7-2.0) mmol/L Calcium (8.4-10.2) mg/dL Magnesium (1.6-2.3) mg/dL AST 108 H (17-59) U/L Ammonia (<30) umol/L Total Creatine Kinase 254 H (55-170) U/L CK-MB (CK-2) 4.9 H* (0.0-2.4) ng/mL Troponin I 0.035 H* (0.000-0.034) ng/mL Albumin 3.1 L (3.5-5.0) g/dL Urine Blood (Negative) Urine Bacteria (None) /hpf 06/05/18 06/05/18 06/05/18 Range/Units 12:10 12:10 12:31 WBC (3.8-10.6) k/uL RBC (4.30-5.90) m/uL Hgb (13.0-17.5) gm/dL Hct (39.0-53.0) % RDW (11.5-15.5) % Plt Count (150-450) k/uL Neutrophils # (Manual) (1.3-7.7) k/uL Lymphocytes # (Manual) (1.0-4.8) k/uL Monocytes # (Manual) (0-1.0) k/uL Eosinophils # (Manual) (0-0.7) k/uL Metamyelocytes # (Man) (0) k/uL Myelocytes # (Manual) (0) k/uL INR 1.2 H (<1.2) ABG pH <7.00 L* (7.35-7.45) ABG pCO2 97 H* (35-45) mmHg ABG pO2 148 H (83-108) mmHg ABG HCO3 (21-25) mmol/L ABG Total CO2 25 H (19-24) mmol/L ABG O2 Saturation (94-97) % Sodium (137-145) mmol/L Chloride (98-107) mmol/L Carbon Dioxide (22-30) mmol/L Glucose (74-99) mg/dL POC Glucose (mg/dL) (75-99) mg/dL Plasma Lactic Acid Shoaib 12.6 H* (0.7-2.0) mmol/L Calcium (8.4-10.2) mg/dL Magnesium (1.6-2.3) mg/dL AST (17-59) U/L Ammonia (<30) umol/L Total Creatine Kinase (55-170) U/L CK-MB (CK-2) (0.0-2.4) ng/mL Troponin I (0.000-0.034) ng/mL Albumin (3.5-5.0) g/dL Urine Blood (Negative) Urine Bacteria (None) /hpf 06/05/18 06/05/18 06/05/18 Range/Units 13:23 17:20 20:32 WBC (3.8-10.6) k/uL RBC (4.30-5.90) m/uL Hgb (13.0-17.5) gm/dL Hct (39.0-53.0) % RDW (11.5-15.5) % Plt Count (150-450) k/uL Neutrophils # (Manual) (1.3-7.7) k/uL Lymphocytes # (Manual) (1.0-4.8) k/uL Monocytes # (Manual) (0-1.0) k/uL Eosinophils # (Manual) (0-0.7) k/uL Metamyelocytes # (Man) (0) k/uL Myelocytes # (Manual) (0) k/uL INR (<1.2) ABG pH 7.15 L* (7.35-7.45) ABG pCO2 65 H (35-45) mmHg ABG pO2 331 H (83-108) mmHg ABG HCO3 (21-25) mmol/L ABG Total CO2 25 H (19-24) mmol/L ABG O2 Saturation 99.8 H (94-97) % Sodium (137-145) mmol/L Chloride (98-107) mmol/L Carbon Dioxide (22-30) mmol/L Glucose (74-99) mg/dL POC Glucose (mg/dL) 133 H (75-99) mg/dL Plasma Lactic Acid Shoaib (0.7-2.0) mmol/L Calcium (8.4-10.2) mg/dL Magnesium (1.6-2.3) mg/dL AST (17-59) U/L Ammonia 53 H (<30) umol/L Total Creatine Kinase (55-170) U/L CK-MB (CK-2) (0.0-2.4) ng/mL Troponin I (0.000-0.034) ng/mL Albumin (3.5-5.0) g/dL Urine Blood (Negative) Urine Bacteria (None) /hpf 06/05/18 06/05/18 06/05/18 Range/Units 20:54 21:15 23:45 WBC (3.8-10.6) k/uL RBC (4.30-5.90) m/uL Hgb (13.0-17.5) gm/dL Hct (39.0-53.0) % RDW (11.5-15.5) % Plt Count (150-450) k/uL Neutrophils # (Manual) (1.3-7.7) k/uL Lymphocytes # (Manual) (1.0-4.8) k/uL Monocytes # (Manual) (0-1.0) k/uL Eosinophils # (Manual) (0-0.7) k/uL Metamyelocytes # (Man) (0) k/uL Myelocytes # (Manual) (0) k/uL INR (<1.2) ABG pH (7.35-7.45) ABG pCO2 (35-45) mmHg ABG pO2 (83-108) mmHg ABG HCO3 (21-25) mmol/L ABG Total CO2 (19-24) mmol/L ABG O2 Saturation (94-97) % Sodium (137-145) mmol/L Chloride (98-107) mmol/L Carbon Dioxide (22-30) mmol/L Glucose (74-99) mg/dL POC Glucose (mg/dL) 131 H 165 H (75-99) mg/dL Plasma Lactic Acid Shoaib (0.7-2.0) mmol/L Calcium (8.4-10.2) mg/dL Magnesium (1.6-2.3) mg/dL AST (17-59) U/L Ammonia (<30) umol/L Total Creatine Kinase (55-170) U/L CK-MB (CK-2) (0.0-2.4) ng/mL Troponin I (0.000-0.034) ng/mL Albumin (3.5-5.0) g/dL Urine Blood Small H (Negative) Urine Bacteria Rare H (None) /hpf 06/06/18 06/06/18 06/06/18 Range/Units 04:13 04:30 04:30 WBC 42.2 H* (3.8-10.6) k/uL RBC 3.21 L (4.30-5.90) m/uL Hgb 9.2 L (13.0-17.5) gm/dL Hct 29.0 L (39.0-53.0) % RDW 18.8 H (11.5-15.5) % Plt Count 543 H (150-450) k/uL Neutrophils # (Manual) 40.50 H (1.3-7.7) k/uL Lymphocytes # (Manual) 0.42 L (1.0-4.8) k/uL Monocytes # (Manual) 1.27 H (0-1.0) k/uL Eosinophils # (Manual) (0-0.7) k/uL Metamyelocytes # (Man) 0.42 H (0) k/uL Myelocytes # (Manual) 0.42 H (0) k/uL INR (<1.2) ABG pH 7.33 L (7.35-7.45) ABG pCO2 55 H (35-45) mmHg ABG pO2 (83-108) mmHg ABG HCO3 29 H (21-25) mmol/L ABG Total CO2 31 H (19-24) mmol/L ABG O2 Saturation (94-97) % Sodium 131 L (137-145) mmol/L Chloride 92 L (98-107) mmol/L Carbon Dioxide (22-30) mmol/L Glucose 149 H (74-99) mg/dL POC Glucose (mg/dL) (75-99) mg/dL Plasma Lactic Acid Shoaib (0.7-2.0) mmol/L Calcium 7.6 L (8.4-10.2) mg/dL Magnesium 1.3 L (1.6-2.3) mg/dL AST (17-59) U/L Ammonia (<30) umol/L Total Creatine Kinase (55-170) U/L CK-MB (CK-2) (0.0-2.4) ng/mL Troponin I (0.000-0.034) ng/mL Albumin (3.5-5.0) g/dL Urine Blood (Negative) Urine Bacteria (None) /hpf 06/06/18 06/06/18 Range/Units 04:30 05:50 WBC (3.8-10.6) k/uL RBC (4.30-5.90) m/uL Hgb (13.0-17.5) gm/dL Hct (39.0-53.0) % RDW (11.5-15.5) % Plt Count (150-450) k/uL Neutrophils # (Manual) (1.3-7.7) k/uL Lymphocytes # (Manual) (1.0-4.8) k/uL Monocytes # (Manual) (0-1.0) k/uL Eosinophils # (Manual) (0-0.7) k/uL Metamyelocytes # (Man) (0) k/uL Myelocytes # (Manual) (0) k/uL INR 1.3 H (<1.2) ABG pH (7.35-7.45) ABG pCO2 (35-45) mmHg ABG pO2 (83-108) mmHg ABG HCO3 (21-25) mmol/L ABG Total CO2 (19-24) mmol/L ABG O2 Saturation (94-97) % Sodium (137-145) mmol/L Chloride (98-107) mmol/L Carbon Dioxide (22-30) mmol/L Glucose (74-99) mg/dL POC Glucose (mg/dL) 182 H (75-99) mg/dL Plasma Lactic Acid Shoaib (0.7-2.0) mmol/L Calcium (8.4-10.2) mg/dL Magnesium (1.6-2.3) mg/dL AST (17-59) U/L Ammonia (<30) umol/L Total Creatine Kinase (55-170) U/L CK-MB (CK-2) (0.0-2.4) ng/mL Troponin I (0.000-0.034) ng/mL Albumin (3.5-5.0) g/dL Urine Blood (Negative) Urine Bacteria (None) /hpf Microbiology - Last 24 Hours (Table) 06/05/18 19:05 Gram Stain - Preliminary Bronchial Washings - Right Bronchial Washings Culture - Preliminary 06/05/18 12:20 Gram Stain - Preliminary Sputum Sputum Culture - Preliminary 06/05/18 12:55 Urine Culture - Preliminary Urine,Voided Assessment and Plan Assessment: Assessment Acute hypoxic and hypercapnic respiratory failure Toxic metabolic encephalopathy, suspect alcohol intoxication Severe lactic acidosis Anion gap metabolic acidosis Severe dehydration Aspiration pneumonia NSTEMI Septic shock Leukocytosis Anemia, normochromic, normocytic Sinus tachycardia History of DVTs and seizure disorder Hyponatremia Nicotine dependence Hyperglycemia Alcohol abuse Plan Continue full ventilator support in ICU Advanced ET tube 2-3 cm Continue to monitor and replace electrolytes per protocol Titrate FiO2 to keep oxygen saturations greater than 90% Bronchoscopy completed, results pending 4L total IVF bolus given Levophed to maintain map greater than 65, systolic blood pressure greater than 90 CVP monitoring and central line Repeat lactic acid improved Blood, urine, sputum cultures pending Antibiotics: Levaquin and Clinda Monitor urine output and renal function Insulin sliding scale and Accu-Cheks Duo nebs and Pulmicort CIWA protocol Check alcohol level, UDS, Lactulose BID, repeat ammonia in AM Propofol for sedation Maintenance IV fluids at 100 mL per hour GI and DVT prophylaxis Consult PT and OT for early mobility Initiate tube feeds down the OG tube today A.m. chest x-ray and ABG Thiamine, folate, multivitamin Seizure and aspiration precautions Patient's mother at bedside is updated to patient's condition, plan of care I performed an examination of the patient and discussed their management with the nurse practitioner. I have reviewed the nurse practitioner's note and agree with the documented findings and plan of care. <Esha Ambrsoe A - Last Filed: 06/06/18 15:03> Objective - Vital Signs Vital signs: Vital Signs Temp 98.1 F 06/06/18 12:00 Pulse 86 06/06/18 14:00 Resp 20 06/06/18 14:00 BP 96/63 06/06/18 14:00 Pulse Ox 94 L 06/06/18 14:00 Intake & Output 06/05/18 06/06/18 06/06/18 18:59 06:59 18:59 Intake Total 602.326 8841.448 1880.417 Output Total 60 2750 1105 Balance 188.865 875.448 775.417 Weight 83.007 kg 81.9 kg 81.9 kg Intake: IV 200 3260 1461 0.9 at KVO 70 0.9 for pressure bag 21 Clindamycin 600 mg In 50 50 Dextrose 5% in Water 50 ml @ 100 mls/hr IVPB Q8HR [facility] Rx#:[id number] Levofloxacin 500Mg-D5w 100 Pmx 500 mg In Dextrose/ Water 1 100ml.bag @ 100 mls/hr IVPB Q24H [facility] Rx#: [id number] Magnesium Sulfate-D5w Pmx 300 1 gm In Dextrose/Water 1 100ml.bag @ 100 mls/hr IVPB Q1H [facility] Rx#: [id number] Mvi, Adult No.4 with Vit 900 300 K 10 ml Thiamine 100 mg Folic Acid 1 mg In Sodium Chloride 0.9% 1,000 ml @ 100 mls/hr IV .BY DURATION [facility] Rx#: [id number] Potassium Chloride 20 meq 200 In Water For Injection 1 100ml.bag @ 50 mls/hr IVPB Q2H [facility] Rx#: [id number] Sodium Chloride 0.9% 1, 200 210 520 000 ml @ 100 mls/hr IV . Q10H [facility] Rx#:[id number] Sodium Chloride 0.9% 2, 2000 000 ml @ 999 mls/hr IV . Q2H1M [facility] Rx#:[id number] Intake, IV Titration 48.865 365.448 339.417 Amount Norepinephrine 4 mg In 25.625 Dextrose 5% in Water 250 ml @ Titrate IV .Q0M [facility] Rx#:[id number] Norepinephrine 4 mg In 242.00 250 Dextrose 5% in Water 250 ml @ Titrate IV .Q0M [facility] Rx#:[id number] Propofol 1,000 mg In 23.240 Empty Bag 1 bag @ Titrate IV .Q0M [facility] Rx#: [id number] Propofol 1,000 mg In 123.448 89.417 Empty Bag 1 bag @ Titrate IV .Q0M [facility] Rx#: [id number] Tube Feeding 20 Other 60 Output: Gastric Drainage 250 250 Urine 60 2500 855 Other: Voiding Method Indwelling Catheter Indwelling Catheter Indwelling Catheter - Labs CBC & Chem 7: 06/06/18 04:30 06/06/18 13:23 Labs: Abnormal Lab Results - Last 24 Hours (Table) 06/05/18 06/05/18 06/05/18 Range/Units 12:10 17:20 20:32 WBC (3.8-10.6) k/uL RBC (4.30-5.90) m/uL Hgb (13.0-17.5) gm/dL Hct (39.0-53.0) % RDW (11.5-15.5) % Plt Count (150-450) k/uL Neutrophils # (Manual) (1.3-7.7) k/uL Lymphocytes # (Manual) (1.0-4.8) k/uL Monocytes # (Manual) (0-1.0) k/uL Metamyelocytes # (Man) (0) k/uL Myelocytes # (Manual) (0) k/uL INR (<1.2) ABG pH (7.35-7.45) ABG pCO2 (35-45) mmHg ABG HCO3 (21-25) mmol/L ABG Total CO2 (19-24) mmol/L Sodium (137-145) mmol/L Chloride (98-107) mmol/L Glucose (74-99) mg/dL POC Glucose (mg/dL) 133 H (75-99) mg/dL Plasma Lactic Acid Shoaib 12.6 H* (0.7-2.0) mmol/L Calcium (8.4-10.2) mg/dL Magnesium (1.6-2.3) mg/dL Ammonia 53 H (<30) umol/L Urine Blood (Negative) Urine Bacteria (None) /hpf 06/05/18 06/05/18 06/05/18 Range/Units 20:54 21:15 23:45 WBC (3.8-10.6) k/uL RBC (4.30-5.90) m/uL Hgb (13.0-17.5) gm/dL Hct (39.0-53.0) % RDW (11.5-15.5) % Plt Count (150-450) k/uL Neutrophils # (Manual) (1.3-7.7) k/uL Lymphocytes # (Manual) (1.0-4.8) k/uL Monocytes # (Manual) (0-1.0) k/uL Metamyelocytes # (Man) (0) k/uL Myelocytes # (Manual) (0) k/uL INR (<1.2) ABG pH (7.35-7.45) ABG pCO2 (35-45) mmHg ABG HCO3 (21-25) mmol/L ABG Total CO2 (19-24) mmol/L Sodium (137-145) mmol/L Chloride (98-107) mmol/L Glucose (74-99) mg/dL POC Glucose (mg/dL) 131 H 165 H (75-99) mg/dL Plasma Lactic Acid Shoaib (0.7-2.0) mmol/L Calcium (8.4-10.2) mg/dL Magnesium (1.6-2.3) mg/dL Ammonia (<30) umol/L Urine Blood Small H (Negative) Urine Bacteria Rare H (None) /hpf 06/06/18 06/06/18 06/06/18 Range/Units 04:13 04:30 04:30 WBC 42.2 H* (3.8-10.6) k/uL RBC 3.21 L (4.30-5.90) m/uL Hgb 9.2 L (13.0-17.5) gm/dL Hct 29.0 L (39.0-53.0) % RDW 18.8 H (11.5-15.5) % Plt Count 543 H (150-450) k/uL Neutrophils # (Manual) 40.50 H (1.3-7.7) k/uL Lymphocytes # (Manual) 0.42 L (1.0-4.8) k/uL Monocytes # (Manual) 1.27 H (0-1.0) k/uL Metamyelocytes # (Man) 0.42 H (0) k/uL Myelocytes # (Manual) 0.42 H (0) k/uL INR (<1.2) ABG pH 7.33 L (7.35-7.45) ABG pCO2 55 H (35-45) mmHg ABG HCO3 29 H (21-25) mmol/L ABG Total CO2 31 H (19-24) mmol/L Sodium 131 L (137-145) mmol/L Chloride 92 L (98-107) mmol/L Glucose 149 H (74-99) mg/dL POC Glucose (mg/dL) (75-99) mg/dL Plasma Lactic Acid Shoaib (0.7-2.0) mmol/L Calcium 7.6 L (8.4-10.2) mg/dL Magnesium 1.3 L (1.6-2.3) mg/dL Ammonia (<30) umol/L Urine Blood (Negative) Urine Bacteria (None) /hpf 06/06/18 06/06/18 06/06/18 Range/Units 04:30 05:50 12:16 WBC (3.8-10.6) k/uL RBC (4.30-5.90) m/uL Hgb (13.0-17.5) gm/dL Hct (39.0-53.0) % RDW (11.5-15.5) % Plt Count (150-450) k/uL Neutrophils # (Manual) (1.3-7.7) k/uL Lymphocytes # (Manual) (1.0-4.8) k/uL Monocytes # (Manual) (0-1.0) k/uL Metamyelocytes # (Man) (0) k/uL Myelocytes # (Manual) (0) k/uL INR 1.3 H (<1.2) ABG pH (7.35-7.45) ABG pCO2 (35-45) mmHg ABG HCO3 (21-25) mmol/L ABG Total CO2 (19-24) mmol/L Sodium (137-145) mmol/L Chloride (98-107) mmol/L Glucose (74-99) mg/dL POC Glucose (mg/dL) 182 H 201 H (75-99) mg/dL Plasma Lactic Acid Shoaib (0.7-2.0) mmol/L Calcium (8.4-10.2) mg/dL Magnesium (1.6-2.3) mg/dL Ammonia (<30) umol/L Urine Blood (Negative) Urine Bacteria (None) /hpf Microbiology - Last 24 Hours (Table) 06/05/18 12:10 Blood Culture - Preliminary Blood No Growth after 24 hours 06/05/18 19:05 Gram Stain - Preliminary Bronchial Washings - Right Bronchial Washings Culture - Preliminary 06/05/18 12:20 Gram Stain - Preliminary Sputum Sputum Culture - Preliminary 06/05/18 12:55 Urine Culture - Preliminary Urine,Voided Assessment and Plan Assessment: Patient seen and examined in the intensive care unit with nursing staff and family at bedside. The patient's FiO2 is down to 50%. His O2 saturation is 95- 97%. We will continue to titrate the FiO2 down to maintain a saturation greater than 92%. The patient has been started on tube feeds. He has tolerated well at this time. Ammonia was slightly elevated and lactulose has been initiated. The patient has adequate urine output at around 60 mL per hour. He has been afebrile overnight. He is on 8 mcg/m of Levophed. Blood sugars have been elevated around 200. He is receiving sliding scale insulin. Antibiotics per infectious disease. Cultures are pending. GI and DVT prophylaxis. Early mobility. CIWA protocol. The patient's mother is at bedside and is updated to the plan of care. CCT 32 minutes ~Esha Ambrose DO
[2018-06-06] MEDS: LACTULOSE 20 GM/30 ML CUP PO SCH ×2 (10:13→22:15)
[2018-06-06 10:50] LABS: Amphetamine Screen,Urine Not Detected (NotDetected); Barbiturate Screen,Urine Not Detected (NotDetected); Benzodiazepines Screen,Urine Not Detected (NotDetected); Cocaine Screen,Urine Not Detected (NotDetected); Methadone Screen, Urine Not Detected (NotDetected); Opiate Screen,Urine Not Detected (NotDetected); Oxycodone Screen, Urine Not Detected (NotDetected); Phencyclidine Screen,Urine Not Detected (NotDetected); Tricyclic Antidepressant,Urine Not Detected (NotDetected); Urn Cannabinoid Scrn Not Detected (NotDetected)
[2018-06-06 12:18] LABS: Glucose,Whole Blood 201 mg/dL (75-99)
[2018-06-06] MEDS ORDERED: cefTRIAXone IN SWFI 1,000 MG/10 ML SYRINGE IVP SCH (13:00)
[2018-06-06] MEDS ORDERED: POTASSIUM BICARBONATE/CIT AC 20 MEQ TABLET.EFF NG-TUBE SCH (14:00)
[2018-06-06] MEDS: AMPICILLIN-SULBACTAM 3 GM in SODIUM CHLORIDE 0.9% 100 ML IVPB SCH ×3 (15:02→23:39)
[2018-06-06] MEDS ORDERED: INSULIN ASPART 100 UNIT/ML 1 ML 10 ML VIAL SQ SCH (15:30)
[2018-06-06 17:47] LABS: Magnesium 2.1 mg/dL (1.6-2.3); Potassium 3.8 mmol/L (3.5-5.1)
[2018-06-06 18:00] LABS: Glucose,Whole Blood 173 mg/dL (75-99)
[2018-06-06 18:56] LABS: Hemoglobin A1C 5.7 % (4.0-6.0)
[2018-06-06] MEDS ORDERED: POTASSIUM BICARBONATE/CIT AC 20 MEQ TABLET.EFF NG-TUBE ONE (20:00)
--- NOTE | 2018-06-06 21:12 | HP ---
HISTORY AND PHYSICAL CHIEF COMPLAINT: A 52-year-old white male on a ventilator. HISTORY OF PRESENT ILLNESS: A 52-year-old white male who is sedated on a ventilator, came into emergency room unresponsive, found lying at home by family members. He was found acidotic with pH less than 7. He had lactic acid elevated at 12.6. It was found that the patient had aspirated. He has a history of alcoholism, refusing to quit smoking, drinking alcohol. He is getting IV fluids at 100 mL an hour. He intermittently responds to commands. A known alcoholic with multiple admissions for alcohol intoxications. He has been on BiPAP in the past, drinks about a pint of vodka daily. Chest x-ray: Right lower lobe infiltrate. EKG: Sinus tachycardia. PAST MEDICAL HISTORY: COPD, GERD, seizure disorder, syncope, alcoholism, alcohol abuse for many years. He has been admitted many times with withdrawal delirium tremens, thrombocytopenia, encephalopathy, hyponatremia. PAST SURGICAL HISTORY: Ear surgery, tonsillectomy, vocal cord scraping. History of anxiety, bipolar depression. Current everyday smoker, 1 pint of vodka per day, heavy. FAMILY HISTORY: Father with stomach cancer. He is alive. Mother living, bipolar schizophrenia. HOME MEDICATIONS: 1. Omeprazole 20 daily. 2. Ibuprofen 800 t.i.d. 3. Ferrous sulfate 325 daily. 4. Albuterol 2 puffs q.4 hours p.r.n. ALLERGIES: Negative. Pulse is 80s to mid 100s, respiratory rate 20-14, blood pressure is 90s to 110s over 50s to 70s, O2 90%-100% on room air. Sodium 127, potassium 4.3, BUN 10, creatinine 0.9. White count 37.6, hemoglobin is 10.2. ASSESSMENT: 1. Leukocytosis. 2. Acute respiratory failure. 3. Severe sepsis. 4. Severe lactic acidosis. 5. Toxic metabolic encephalopathy. 6. Alcohol intoxication. 7. Anion gap metabolic acidosis. 8. Severe dehydration. 9. Aspiration pneumonia. 10.Non ST-elevation myocardial infarction. 11.Septic shock. 12.Anemia. 13.Sinus tachycardia. 14.Hyponatremia. 15.Nicotine dependence. 16.Alcohol abuse. 17.Hyperglycemia. 18.Bronchoscopy. 19.Ventilator. TREATMENT: Levophed to keep blood pressure over 90 systolic, broad-spectrum antibiotics and updraft treatments, CIWA protocol, pulmonary and infectious disease consultation, sedation, possible tube feeds down the OG in the next 24 hours. Seizure, aspiration precautions, thiamine, folate, and multivitamin. Possible bronchoscopy. ICU TIME: About 45 minutes. ANGELICA / SHAW: [id number] /
--- NOTE | 2018-06-06 22:54 | CONS ---
CONSULTATION DATE OF SERVICE: 06/06/2018 REASON FOR CONSULTATION: Sepsis and antibiotic recommendation. HISTORY OF PRESENT ILLNESS: The patient is a 52-year-old male who was brought into the ER at [facility] yesterday afternoon on 06/05 after the patient was noticed to be unresponsive. On arrival of the EMS, the patient was noticed to have an oxygen saturation of 50%. He was started on the non-rebreather with minimal improvement. Patient subsequently has been intubated and has been admitted to the ICU. The patient was noticed to be hypotensive, requiring multiple fluid boluses and pressors in the form of Levophed. He was noticed to have elevated lactic acid also with elevated white count 37.6. Repeat is 42.2. The patient was noticed to have respiratory distress the patient was intubated with concern about aspiration process. Patient has been initiated with Rocephin and clindamycin. Subsequently antibiotic has been adjusted to Levaquin and clindamycin. Infectious Disease was consulted for further recommendations regarding antibiotic therapy. Chest x-ray is suggestive of right lower lobe pneumonia. All of this information has been obtained from thorough review of the chart and diagnostic studies, as the patient is currently intubated on the vent and is unable to provide any reliable history. REVIEW OF SYSTEMS: Could not be reliably obtained. The positive points have been mentioned in the HPI. PAST MEDICAL HISTORY: 1. COPD. 2. Gastroesophageal reflux disease. 3. Seizure disorder. 4. Syncope. 5. Alcohol abuse. 6. Anxiety. 7. Bipolar depression. PAST SURGICAL HISTORY: 1. Nasal surgery. 2. Tonsillectomy. SOCIAL HISTORY: Current everyday smoker. Daily drinks about a pint of vodka. FAMILY HISTORY: Father with history of stomach cancer. Mother is living and healthy. Mother with history of bipolar schizophrenia. ALLERGIES: NO KNOWN DRUG ALLERGIES. CURRENT MEDICATIONS: 1. DuoNeb. 2. Pulmicort. 3. NovoLog. 4. Lactulose. 5. Ativan. 6. Narcan. 7. Protonix. PHYSICAL EXAMINATION: Blood pressure is 96/65 with a pulse of 83, temperature of 98, T-max of 99.9. He is 95% on 50% FiO2. General description is a middle-aged male lying in bed in no distress. No tachypnea or accessory muscle of respiration use. HEENT examination shows pallor. No scleral icterus. Patient is orally intubated , limiting the examination of oral cavity. NECK: Trachea is central. No thyromegaly. LUNGS: Unlabored breathing. Coarse breath sounds at the bases bilaterally. No wheeze. HEART: S1, S2. Regular rate and rhythm. ABDOMEN: Soft. No tenderness. No guarding or rigidity EXTREMITIES: No edema of the feet. SKIN EXAMINATION: No rash or mass palpable. NEUROLOGIC: The patient is currently sedated on the vent. Neurological exam could not be completed. LABS: Hemoglobin 9.2, white count 42.2 with a BUN of 11, creatinine 0.70. Lactic acid 12.6 on presentation. UA has been negative. Chest x-ray with right lower lobe pneumonia. DIAGNOSTIC IMPRESSION AND PLAN: Patient with acute respiratory failure which is likely multifactorial in this patient who does have a component of aspiration pneumonia, as the patient was noticed to be unresponsive, hypoxic, with significant gastric secretions through the ET tube after the patient was intubated. No clear history if the patient has been on antibiotics in the recent past. PLAN: 1. Discontinue the clindamycin and Levaquin. 2. Start the patient on Unasyn 3 grams q.6 hours. 3. Aggressive IV fluid. 4. We will follow up on his clinical condition and culture to further adjust medication if needed. Thank you for this consultation. Will follow this patient along with you. MMODL / IJN: [id number] / MTDD
[2018-06-06 23:43] LABS: Glucose,Whole Blood 173 mg/dL (75-99)
[2018-06-07] MEDS: LORazepam 2 MG/ML INJ IV PRN ×3 (01:27→14:05)
[2018-06-07] MEDS: IPRATROPIUM-ALBUTEROL 3 ML NEB INHALATION SCH ×6 (03:15→23:16)
[2018-06-07] MEDS: PROPOFOL 1,000 MG in EMPTY BAG 1 BAG IV SCH ×4 (04:08→21:29)
[2018-06-07 04:35] LABS: ABG Base Excess 7.8 mmol/L; ABG HCO3 33 mmol/L (21-25); ABG Oxygen Saturation 92.7 % (94-97); ABG PCO2 55 mmHg (35-45); ABG PH 7.38 (7.35-7.45); ABG PO2 67 mmHg (83-108); ABG TCO2 35 mmol/L (19-24)
[2018-06-07] MEDS: NOREPINEPHRINE 4 MG in DEXTROSE 5% IN WATER 250 ML IV SCH ×4 (05:09→12:14)
[2018-06-07] MEDS: 1: MVI, ADULT NO.4 WITH VIT K 10 ML, THIAMINE 100 MG, FOLIC ACID 1 MG in SODIUM CHLORIDE IV SCH ×12 (05:11→14:56)
[2018-06-07 05:17] LABS: ALT 65 U/L (21-72); AST 57 U/L (17-59); Albumin 2.2 g/dL (3.5-5.0); Alkaline Phosphatase 103 U/L (38-126); Anion Gap 5 mmol/L; Blood Urea Nitrogen 9 mg/dL (9-20); Calcium 8.1 mg/dL (8.4-10.2); Carbon Dioxide 33 mmol/L (22-30); Chloride 97 mmol/L (98-107); Glucose 128 mg/dL (74-99); Magnesium 1.7 mg/dL (1.6-2.3); Phosphorus 2.7 mg/dL (2.5-4.5); Potassium 3.7 mmol/L (3.5-5.1); Sodium 135 mmol/L (137-145); Total Bilirubin <0.1 mg/dL (0.2-1.3); Total Protein 5.1 g/dL (6.3-8.2)
[2018-06-07] MEDS: MAGNESIUM SULFATE-D5W PMX 1 GM in DEXTROSE/WATER 1 100ML.BAG IVPB SCH ×2 (05:37→06:49)
[2018-06-07 05:45] LABS: Glucose,Whole Blood 152 mg/dL (75-99)
[2018-06-07] MEDS: INSULIN ASPART 100 UNIT/ML 1 ML 10 ML VIAL SQ SCH ×6 (05:49→18:38)
[2018-06-07] MEDS: AMPICILLIN-SULBACTAM 3 GM in SODIUM CHLORIDE 0.9% 100 ML IVPB SCH ×3 (05:53→18:26)
[2018-06-07] MEDS ORDERED: POTASSIUM BICARBONATE/CIT AC 20 MEQ TABLET.EFF NG-TUBE SCH (06:00)
[2018-06-07 06:26] LABS: Anisocytosis Slight; HCT 28.8 % (39.0-53.0); HGB 8.6 gm/dL (13.0-17.5); Hypochromasia Moderate; MCH 27.6 pg (25.0-35.0); MCV 92.1 fL (80.0-100.0); Mean Platelet Volume 6.6; Platelet Count 484 k/uL (150-450); RBC 3.13 m/uL (4.30-5.90); RDW 18.8 % (11.5-15.5)
[2018-06-07 06:36] LABS: WBC 38.1 k/uL (3.8-10.6)
[2018-06-07] MEDS: BUDESONIDE 0.5 MG/2 ML NEBU INHALATION SCH ×2 (07:17→20:25)
[2018-06-07] MEDS: PANTOPRAZOLE 40 MG/10 ML VIAL IV SCH (08:45)
[2018-06-07] MEDS: HEPARIN SODIUM,PORCINE 5,000 UNIT/ML 1 ML VIAL SQ SCH ×2 (08:45→15:59)
[2018-06-07] MEDS: LACTULOSE 20 GM/30 ML CUP PO SCH (08:45)
[2018-06-07] MEDS: CHLORHEXIDINE GLUCONATE 15 ML CUP MUCOUS MEM SCH ×2 (08:45→20:35)
[2018-06-07 09:03] LABS: Band Neutrophils % 20 %; Lymphocytes # (M) 0.76 k/uL (1.0-4.8); Monocytes # (M) 1.91 k/uL (0-1.0); Neutrophils % (M) 75 %; Nucleated Red Blood Cells 0 /100 WBC (0-0); Polychromasia Present; Total Cells Counted 200
[2018-06-07 09:04] LABS: Poikilocytosis (M) Present; Toxic Granulation Present
[2018-06-07 09:05] LABS: Mixed Population RBC Present
[2018-06-07] MEDS ORDERED: HYDROmorphone 0.5 MG/0.5 ML SYRINGE IVP STA (09:05)
--- NOTE | 2018-06-07 09:12 | XR ---
EXAMINATION TYPE: XR chest 1V portable DATE OF EXAM: 06/07/2018 COMPARISON: 06/06/2018 HISTORY: SOB, Follow Up FINDINGS: Indwelling tubes and catheters are unchanged. No change in right basilar opacities. Stable appearance of the cardio-mediastinal structures at this time. Pleural effusion unchanged. IMPRESSION: 1. Stable portable chest. Clinical correlation and follow up until resolution is recommended.
[2018-06-07] MEDS ORDERED: ACETAMINOPHEN IV (For NPO) 1,000 MG in EMPTY BAG 1 BAG IVPB ONE (09:50)
--- NOTE | 2018-06-07 10:19 | P.PN ---
<Judith Singletary E - Last Filed: 06/07/18 10:10> Subjective Progress Note Date: 06/07/18 History of present illness: This is a 52-year-old gentleman who is well-known to [facility]. History is unable to be obtained from the patient as he is sedated on the ventilator. Per the emergency room note the patient was found unresponsive and EMS was called. The Patient's O2 saturation was 50%. He had minimal improvement on nonrebreather. The patient was to Make an hypoxic and subsequently intubated in the emergency room. The patient was found to have an elevated lactic acid of 12.6. He was profoundly acidotic with a pH of less than 7.0. The patient was hypotensive and started on Levophed. He is currently on 6 mcg/m of Levophed. He is having a large amount of green and secretions from the ET tube. It is assumed the patient aspirated. The patient is on 100% FiO2 and PEEP of 8. Bronchoscopy is performed to clear secretions. The patient has been given 2 L of IV fluids in the emergency room. He has maintenance fluids running at 100 mL per hour. He does intermittently respond to commands. The patient is a known alcoholic. He has had multiple admissions for alcohol intoxication and subsequently go through withdrawals. The patient has refused alcohol rehab in the past. The patient has required BiPAP in the past. He does drink about a pound of vodka daily. The patient's chest x-ray shows right lower lobe infiltrate. EKG shows sinus tachycardia. He also has slightly elevated troponins. Interval History: 06/06/18- patient is being seen examined and evaluated today on rounds. He is on mechanical ventilation with propofol for sedation. Current mechanical ventilation settings are assist control mode with a respiratory rate of 20, tidal volume of 550, FiO2 of 70%, and a PEEP of 8. Currently he is on Levophed at 8 mics, and propofol at 30 mics. OG tube has green bile like output, ET tube continues to have green tea-like secretions. He has been making urine. He has got a total of 4 L of fluid resuscitation. His ABGs from this morning reveal a pH of 7.33, pCO2 of 55, pO2 of 85 and HCO3 of 29. Dietary is on board and will be starting tube feeds today. His potassium is 3.5 is being replaced his magnesium is 1.3 and being replaced. His chest x-ray was reviewed and lines are stable ET tube can be advanced to 3 cm. He has a persistent right loculated pleural effusion and a trace left pleural effusion. Infectious disease has been consulted. He continues on antibiotics. Mother is at bedside updated on plan of care. No plans for extubation today. 06/07/18- patient is being seen examined and evaluated today on rounds in the intensive care unit. Patient continues on mechanical ventilation with propofol for sedation. Current mechanical ventilator settings are assist-control mode with respiratory rate of 20, tidal volume of 550, FiO2 80%, and a PEEP of 8. Patient's blood gases from this morning reveal a pH of 7.38 pCO2 of 55, pO2 of 67, and HCO3 of 33. The ABGs were done on 70% of FiO2 and were titrated up to 80% after that. He did know to have a slight increase in his temperature this morning and Ofirmev given. He also was noted to be tachycardiac and Ativan was given for the CIWA protocol. He continues to have moderate amount of secretions from ET tube. He has been tolerating his tube feedings. He has been making good urine approximately 70 per hour. Infectious disease did see the patient yesterday. His ammonia also did improve to 31 today. Objective - Vital Signs Vital signs: Vital Signs Temp 100.7 F H 06/07/18 08:00 Pulse 137 H 06/07/18 09:00 Resp 20 06/07/18 07:17 BP 101/61 06/07/18 09:00 Pulse Ox 94 L 06/07/18 09:00 Intake & Output 06/06/18 06/07/18 06/07/18 18:59 06:59 18:59 Intake Total 3668.531 2904.268 959 Output Total 1365 1015 245 Balance 2303.531 1889.268 714 Weight 81.9 kg 81.4 kg 81.4 kg Intake: IV 2053 1676 269 0.9 at KVO 150 240 60 0.9 for pressure bag 33 36 9 Ampicillin-Sulbactam 3 gm 100 200 100 In Sodium Chloride 0.9% 100 ml @ 100 mls/hr IVPB Q6HR [facility] Rx#:[id number] Clindamycin 600 mg In 50 Dextrose 5% in Water 50 ml @ 100 mls/hr IVPB Q8HR [facility] Rx#:[id number] Magnesium Sulfate-D5w Pmx 300 1 gm In Dextrose/Water 1 100ml.bag @ 100 mls/hr IVPB Q1H [facility] Rx#: [id number] Mvi, Adult No.4 with Vit 300 1000 K 10 ml Thiamine 100 mg Folic Acid 1 mg In Sodium Chloride 0.9% 1,000 ml @ 100 mls/hr IV .BY DURATION [facility] Rx#: [id number] Potassium Chloride 20 meq 200 In Water For Injection 1 100ml.bag @ 50 mls/hr IVPB Q2H [facility] Rx#: [id number] Sodium Chloride 0.9% 1, 920 200 100 000 ml @ 100 mls/hr IV . Q10H [facility] Rx#:[id number] Intake, IV Titration 1425.531 708.268 530 Amount Magnesium Sulfate-D5w Pmx 100 1 gm In Dextrose/Water 1 100ml.bag @ 100 mls/hr IVPB Q1H [facility] Rx#: [id number] Norepinephrine 4 mg In 250 496.5 Dextrose 5% in Water 250 ml @ Titrate IV .Q0M [facility] Rx#:[id number] Propofol 1,000 mg In 175.531 211.768 Empty Bag 1 bag @ Titrate IV .Q0M [facility] Rx#: [id number] Sodium Chloride 0.9% 1, 1000 430 000 ml @ 100 mls/hr IV . BY DURATION [facility] Rx#: [id number] Tube Feeding 100 430 160 Other 90 90 Output: Gastric Drainage 250 Urine 1115 1015 245 Other: Voiding Method Indwelling Catheter Indwelling Catheter # Bowel Movements 2 - Exam Gen.: Patient is sedated and intubated on full ventilator support, he does follow commands intermittently Cardiovascular: Tachycardic, regular rate and rhythm, S1/S2 Lungs: Coarse breath sounds bilaterally, green tea and copious secretions in the ET tube Abdomen: Soft nontender nondistended positive bowel sounds, green bile secreations from OG tube Extremities: No edema Neuro: on sedation - Labs CBC & Chem 7: 06/07/18 04:39 06/07/18 04:39 Labs: Abnormal Lab Results - Last 24 Hours (Table) 06/06/18 06/06/18 06/06/18 Range/Units 12:16 17:58 23:41 WBC (3.8-10.6) k/uL RBC (4.30-5.90) m/uL Hgb (13.0-17.5) gm/dL Hct (39.0-53.0) % MCHC (31.0-37.0) g/dL RDW (11.5-15.5) % Plt Count (150-450) k/uL Neutrophils # (Manual) (1.3-7.7) k/uL Lymphocytes # (Manual) (1.0-4.8) k/uL Monocytes # (Manual) (0-1.0) k/uL ABG pCO2 (35-45) mmHg ABG pO2 (83-108) mmHg ABG HCO3 (21-25) mmol/L ABG Total CO2 (19-24) mmol/L ABG O2 Saturation (94-97) % Sodium (137-145) mmol/L Chloride (98-107) mmol/L Carbon Dioxide (22-30) mmol/L Creatinine (0.66-1.25) mg/dL Glucose (74-99) mg/dL POC Glucose (mg/dL) 201 H 173 H 173 H (75-99) mg/dL Calcium (8.4-10.2) mg/dL Total Bilirubin (0.2-1.3) mg/dL Ammonia (<30) umol/L Total Protein (6.3-8.2) g/dL Albumin (3.5-5.0) g/dL 06/07/18 06/07/18 06/07/18 Range/Units 04:33 04:39 04:39 WBC 38.1 H* (3.8-10.6) k/uL RBC 3.13 L (4.30-5.90) m/uL Hgb 8.6 L (13.0-17.5) gm/dL Hct 28.8 L (39.0-53.0) % MCHC 30.0 L (31.0-37.0) g/dL RDW 18.8 H (11.5-15.5) % Plt Count 484 H (150-450) k/uL Neutrophils # (Manual) 36.10 H (1.3-7.7) k/uL Lymphocytes # (Manual) 0.76 L (1.0-4.8) k/uL Monocytes # (Manual) 1.91 H (0-1.0) k/uL ABG pCO2 55 H (35-45) mmHg ABG pO2 67 L (83-108) mmHg ABG HCO3 33 H (21-25) mmol/L ABG Total CO2 35 H (19-24) mmol/L ABG O2 Saturation 92.7 L (94-97) % Sodium 135 L (137-145) mmol/L Chloride 97 L (98-107) mmol/L Carbon Dioxide 33 H (22-30) mmol/L Creatinine 0.50 L (0.66-1.25) mg/dL Glucose 128 H (74-99) mg/dL POC Glucose (mg/dL) (75-99) mg/dL Calcium 8.1 L (8.4-10.2) mg/dL Total Bilirubin <0.1 L (0.2-1.3) mg/dL Ammonia (<30) umol/L Total Protein 5.1 L (6.3-8.2) g/dL Albumin 2.2 L (3.5-5.0) g/dL 06/07/18 06/07/18 Range/Units 04:39 05:44 WBC (3.8-10.6) k/uL RBC (4.30-5.90) m/uL Hgb (13.0-17.5) gm/dL Hct (39.0-53.0) % MCHC (31.0-37.0) g/dL RDW (11.5-15.5) % Plt Count (150-450) k/uL Neutrophils # (Manual) (1.3-7.7) k/uL Lymphocytes # (Manual) (1.0-4.8) k/uL Monocytes # (Manual) (0-1.0) k/uL ABG pCO2 (35-45) mmHg ABG pO2 (83-108) mmHg ABG HCO3 (21-25) mmol/L ABG Total CO2 (19-24) mmol/L ABG O2 Saturation (94-97) % Sodium (137-145) mmol/L Chloride (98-107) mmol/L Carbon Dioxide (22-30) mmol/L Creatinine (0.66-1.25) mg/dL Glucose (74-99) mg/dL POC Glucose (mg/dL) 152 H (75-99) mg/dL Calcium (8.4-10.2) mg/dL Total Bilirubin (0.2-1.3) mg/dL Ammonia 31 H (<30) umol/L Total Protein (6.3-8.2) g/dL Albumin (3.5-5.0) g/dL Microbiology - Last 24 Hours (Table) 06/05/18 12:55 Urine Culture - Final Urine,Voided 06/05/18 12:10 Blood Culture - Preliminary Blood No Growth after 24 hours 06/05/18 19:05 Gram Stain - Preliminary Bronchial Washings - Right Bronchial Washings Culture - Preliminary 06/05/18 12:20 Gram Stain - Preliminary Sputum Sputum Culture - Preliminary Assessment and Plan Assessment: Assessment Acute hypoxic and hypercapnic respiratory failure Toxic metabolic encephalopathy, suspect alcohol intoxication Severe lactic acidosis Anion gap metabolic acidosis Severe dehydration Aspiration pneumonia NSTEMI Septic shock Leukocytosis Anemia, normochromic, normocytic Sinus tachycardia History of DVTs and seizure disorder Hyponatremia Nicotine dependence Hyperglycemia Alcohol abuse Plan Continue full ventilator support in ICU IV Tylenol every 6 as needed for fevers Continue to monitor and replace electrolytes per protocol Titrate FiO2 to keep oxygen saturations greater than 90% Bronchoscopy completed, results pending 4L total IVF bolus given Levophed to maintain map greater than 65, systolic blood pressure greater than 90 CVP monitoring and central line Repeat lactic acid improved Blood, urine, sputum cultures pending Antibiotics: ID on consult Monitor urine output and renal function Insulin sliding scale and Accu-Cheks Duo nebs and Pulmicort CIWA protocol Lactulose BID, repeat ammonia in AM Propofol for sedation Maintenance IV fluids at 100 mL per hour GI and DVT prophylaxis Consult PT and OT for early mobility Tube feeds per dietary recommendations A.m. chest x-ray and ABG Thiamine, folate, multivitamin Seizure and aspiration precautions Patient's mother at bedside is updated to patient's condition, plan of care I performed an examination of the patient and discussed their management with the nurse practitioner. I have reviewed the nurse practitioner's note and agree with the documented findings and plan of care. <Esha Ambrose A - Last Filed: 06/07/18 14:40> Objective - Vital Signs Vital signs: Vital Signs Temp 102.3 F H 06/07/18 11:00 Pulse 122 H 06/07/18 11:16 Resp 20 06/07/18 11:06 BP 96/58 06/07/18 11:00 Pulse Ox 96 06/07/18 11:00 Intake & Output 06/06/18 06/07/18 06/07/18 18:59 06:59 18:59 Intake Total 3668.531 2904.268 1942.85 Output Total 1365 1015 595 Balance 2303.531 9329.437 3070.85 Weight 81.9 kg 81.4 kg 81.4 kg Intake: IV 2053 1676 470 0.9 at KVO 150 240 120 0.9 for pressure bag 33 36 50 Ampicillin-Sulbactam 3 gm 100 200 200 In Sodium Chloride 0.9% 100 ml @ 100 mls/hr IVPB Q6HR [facility] Rx#:[id number] Clindamycin 600 mg In 50 Dextrose 5% in Water 50 ml @ 100 mls/hr IVPB Q8HR [facility] Rx#:[id number] Magnesium Sulfate-D5w Pmx 300 1 gm In Dextrose/Water 1 100ml.bag @ 100 mls/hr IVPB Q1H [facility] Rx#: [id number] Mvi, Adult No.4 with Vit 300 1000 K 10 ml Thiamine 100 mg Folic Acid 1 mg In Sodium Chloride 0.9% 1,000 ml @ 100 mls/hr IV .BY DURATION [facility] Rx#: [id number] Potassium Chloride 20 meq 200 In Water For Injection 1 100ml.bag @ 50 mls/hr IVPB Q2H [facility] Rx#: [id number] Sodium Chloride 0.9% 1, 920 200 100 000 ml @ 100 mls/hr IV . Q10H [facility] Rx#:[id number] Intake, IV Titration 1425.531 171.835 6240.85 Amount Magnesium Sulfate-D5w Pmx 100 1 gm In Dextrose/Water 1 100ml.bag @ 100 mls/hr IVPB Q1H [facility] Rx#: [id number] Norepinephrine 4 mg In 250 496.5 212.5 Dextrose 5% in Water 250 ml @ Titrate IV .Q0M [facility] Rx#:[id number] Propofol 1,000 mg In 175.531 211.768 80.35 Empty Bag 1 bag @ Titrate IV .Q0M [facility] Rx#: [id number] Sodium Chloride 0.9% 1, 1000 430 000 ml @ 100 mls/hr IV . BY DURATION [facility] Rx#: [id number] Vancomycin 1,500 mg In 250 Sodium Chloride 0.9% 250 ml @ 125 mls/hr IVPB Q8H [facility] Rx#:[id number] Tube Feeding 100 430 400 Other 90 90 Output: Gastric Drainage 250 Urine 1115 1015 595 Other: Voiding Method Indwelling Catheter Indwelling Catheter Indwelling Catheter # Bowel Movements 2 - Labs CBC & Chem 7: 06/07/18 04:39 06/07/18 04:39 Labs: Abnormal Lab Results - Last 24 Hours (Table) 06/06/18 06/06/18 06/07/18 Range/Units 17:58 23:41 04:33 WBC (3.8-10.6) k/uL RBC (4.30-5.90) m/uL Hgb (13.0-17.5) gm/dL Hct (39.0-53.0) % MCHC (31.0-37.0) g/dL RDW (11.5-15.5) % Plt Count (150-450) k/uL Neutrophils # (Manual) (1.3-7.7) k/uL Lymphocytes # (Manual) (1.0-4.8) k/uL Monocytes # (Manual) (0-1.0) k/uL ABG pCO2 55 H (35-45) mmHg ABG pO2 67 L (83-108) mmHg ABG HCO3 33 H (21-25) mmol/L ABG Total CO2 35 H (19-24) mmol/L ABG O2 Saturation 92.7 L (94-97) % Sodium (137-145) mmol/L Chloride (98-107) mmol/L Carbon Dioxide (22-30) mmol/L Creatinine (0.66-1.25) mg/dL Glucose (74-99) mg/dL POC Glucose (mg/dL) 173 H 173 H (75-99) mg/dL Calcium (8.4-10.2) mg/dL Total Bilirubin (0.2-1.3) mg/dL Ammonia (<30) umol/L Total Protein (6.3-8.2) g/dL Albumin (3.5-5.0) g/dL 06/07/18 06/07/18 06/07/18 Range/Units 04:39 04:39 04:39 WBC 38.1 H* (3.8-10.6) k/uL RBC 3.13 L (4.30-5.90) m/uL Hgb 8.6 L (13.0-17.5) gm/dL Hct 28.8 L (39.0-53.0) % MCHC 30.0 L (31.0-37.0) g/dL RDW 18.8 H (11.5-15.5) % Plt Count 484 H (150-450) k/uL Neutrophils # (Manual) 36.10 H (1.3-7.7) k/uL Lymphocytes # (Manual) 0.76 L (1.0-4.8) k/uL Monocytes # (Manual) 1.91 H (0-1.0) k/uL ABG pCO2 (35-45) mmHg ABG pO2 (83-108) mmHg ABG HCO3 (21-25) mmol/L ABG Total CO2 (19-24) mmol/L ABG O2 Saturation (94-97) % Sodium 135 L (137-145) mmol/L Chloride 97 L (98-107) mmol/L Carbon Dioxide 33 H (22-30) mmol/L Creatinine 0.50 L (0.66-1.25) mg/dL Glucose 128 H (74-99) mg/dL POC Glucose (mg/dL) (75-99) mg/dL Calcium 8.1 L (8.4-10.2) mg/dL Total Bilirubin <0.1 L (0.2-1.3) mg/dL Ammonia 31 H (<30) umol/L Total Protein 5.1 L (6.3-8.2) g/dL Albumin 2.2 L (3.5-5.0) g/dL 06/07/18 06/07/18 Range/Units 05:44 12:05 WBC (3.8-10.6) k/uL RBC (4.30-5.90) m/uL Hgb (13.0-17.5) gm/dL Hct (39.0-53.0) % MCHC (31.0-37.0) g/dL RDW (11.5-15.5) % Plt Count (150-450) k/uL Neutrophils # (Manual) (1.3-7.7) k/uL Lymphocytes # (Manual) (1.0-4.8) k/uL Monocytes # (Manual) (0-1.0) k/uL ABG pCO2 (35-45) mmHg ABG pO2 (83-108) mmHg ABG HCO3 (21-25) mmol/L ABG Total CO2 (19-24) mmol/L ABG O2 Saturation (94-97) % Sodium (137-145) mmol/L Chloride (98-107) mmol/L Carbon Dioxide (22-30) mmol/L Creatinine (0.66-1.25) mg/dL Glucose (74-99) mg/dL POC Glucose (mg/dL) 152 H 173 H (75-99) mg/dL Calcium (8.4-10.2) mg/dL Total Bilirubin (0.2-1.3) mg/dL Ammonia (<30) umol/L Total Protein (6.3-8.2) g/dL Albumin (3.5-5.0) g/dL Microbiology - Last 24 Hours (Table) 06/05/18 12:10 Blood Culture - Preliminary Blood No Growth after 48 hours 06/05/18 12:20 Gram Stain - Final Sputum Sputum Culture - Final 06/05/18 12:55 Urine Culture - Final Urine,Voided Assessment and Plan Assessment: Patient seen and examined in the intensive care unit with nursing staff at bedside. Patient is currently on 12 mcg/m of Levophed. He did have fevers of 101-102F today. He was given over mouth. His repeat temperature is 99 degrees Fahrenheit. The patient has had sinus tachycardia. His CVP is 7-8. He is having adequate urine output. He has been given intermittent Ativan. He continues on propofol. Final cultures are pending. Antibiotics have been adjusted by infectious disease. He is currently on Unasyn and vancomycin. Patient is tolerating tube feeds. Repeat chest x-ray is reviewed and shows interval increase in the bilateral infiltrates. This is discussed with the family at bedside. They are aware that the patient will likely remain intubated over the weekend. Will initiate vasopressin and hopefully wean off Levophed. Will initiate Vit C, Cortef, Thiamine protocol for refractory septic shock. CCT 42 min ~Esha Ambrose DO Time with Patient: Greater than 30
[2018-06-07] MEDS ORDERED: VANCOMYCIN IV PER PHARMACY 1 EACH MISC MISCELLANE PRN (11:27)
[2018-06-07] MEDS ORDERED: ACETAMINOPHEN IV (For NPO) 1,000 MG in EMPTY BAG 1 BAG IVPB SCH (12:00)
[2018-06-07 12:06] LABS: Glucose,Whole Blood 173 mg/dL (75-99)
[2018-06-07] MEDS: VANCOMYCIN 1,500 MG in SODIUM CHLORIDE 0.9% 250 ML IVPB SCH ×2 (12:14→20:35)
[2018-06-07] MEDS: SODIUM CHLORIDE 0.9% 99 ML with VASOPRESSIN 20 UNIT IV SCH ×4 (14:49→20:56)
[2018-06-07] MEDS: HYDROCORTISONE SUCCINATE 100 MG/2 ML VIAL IV SCH ×2 (15:30→21:29)
[2018-06-07] MEDS: THIAMINE 200 MG in SODIUM CHLORIDE 0.9% 100 ML IVPB SCH ×2 (15:32→20:35)
[2018-06-07] MEDS: ASCORBIC ACID INJ 1,500 MG in SODIUM CHLORIDE 0.9% 100 ML IVPB SCH ×2 (15:59→21:29)
[2018-06-07] MEDS ORDERED: ACETAMINOPHEN IV (For NPO) 1,000 MG in EMPTY BAG 1 BAG IVPB PRN (16:55)
[2018-06-07 18:07] LABS: Glucose,Whole Blood 206 mg/dL (75-99)
--- NOTE | 2018-06-07 19:52 | P.CNNES ---
History of Present Illness Consult date: 06/07/18 Reason for Consult: Patient being evaluated for altered mental status and alchol abuse. History of Present Illness: This patient is a 52-year-old right-handed white male was brought into the emergency room after he was being found unresponsive at home. He was transported to the emergency room at [facility] for further evaluation. In the ER he was noted to have evidence of severe hypoxemia. His oxygen saturation was 50%. He was initially treated with a nonrebreather mask with no improvement and subsequently was intubated and transferred to the intensive care unit. Patient is also noted to have severe hypotension. He was started on Levophed for treatment of the hypotension. He is currently on 2 mics a Levophed. He is also on a Diprivan drip at 50 g. He was heavily sedated due to his history of severe alcohol abuse and obtundation. He was admitted with acute respiratory failure and this likely to have underlying aspiration pneumonia. He is currently on Unasyn and vancomycin combination. Patient has a extensive history of alcohol abuse in the past. He has had multiple admissions to the hospital with alcohol withdrawal syndrome. He is currently been placed on a [facility] protocol to monitor for alcohol withdrawal. As noted infectious disease and pulmonary medicine or following his condition closely. He continues to remain septic with a temperature today of 102.7. We have recommended the patient to be evaluated for lumbar puncture tomorrow to rule out any possibility of LICENSED PSYCHOLOGIST infection concomitant with his sepsis. According to his mother who was at bedside in the ICU today he has had multiple admissions to [place] for this same alcohol related problems. He apparently signs himself out and does not seek any further attention. He has a long history of recurrent alcohol abuse over the years according to his mother. He has been noncompliant with his other medications as well. He was admitted for alcohol withdrawal seizures last year with similar poor prognosis. As noted his temperature today has spiked to 102.7 despite his current antibiotics. We have recommended a lumbar puncture procedure to be done by anesthesia for further evaluation. The patient remains heavily sedated in the ICU. He is not responding to any painful stimuli. We will need to slowly cut back his sedation to see if he arouses. His overall prognosis at this time remains very guarded. Review of Systems ROS unobtainable: due to endotracheal tube Constitutional: Denies chills, Denies fever Eyes: denies blurred vision, denies pain Ears, nose, mouth and throat: Denies headache, Denies sore throat Cardiovascular: Denies chest pain, Denies shortness of breath Respiratory: Denies cough Gastrointestinal: Denies abdominal pain, Denies diarrhea, Denies nausea, Denies vomiting Musculoskeletal: Denies myalgias Integumentary: Denies pruritus, Denies rash Neurological: Reports change in mentation, Reports change in speech, Reports confusion, Reports loss of vision, Denies numbness, Denies weakness Psychiatric: Denies anxiety, Denies depression Endocrine: Denies fatigue, Denies weight change Past Medical History Past Medical History: COPD, GERD/Reflux, Seizure Disorder, Syncope Additional Past Medical History / Comment(s): Severe ETOH abuse, alcohol withdrawal seizures/DTs, encephalopathy d/t alcohol, falls, thrombocytopenia, mastoiditis with surgery. History of Any Multi-Drug Resistant Organisms: None Reported Past Surgical History: Ear Surgery, Tonsillectomy Additional Past Surgical History / Comment(s): Bilateral mastoidectomies, sinus surgery and vocal cord scraping. Past Anesthesia/Blood Transfusion Reactions: No Reported Reaction Smoking Status: Current every day smoker - Past Family History Father Family Medical History: Cancer Additional Family Medical History / Comment(s): Father was a stomach cancer survivor. He of spinal stenosis at the age of 88yrs. Mother Family Medical History: Hyperlipidemia Additional Family Medical History / Comment(s): Mother is living and is 85 yrs old. Brother(s) Additional Family Medical History / Comment(s): Bipolar, schizoprenia Medications and Allergies Home Medications Medication Instructions Recorded Confirmed Type Albuterol Inhaler [Ventolin Hfa 1 - 2 puff INHALATION RT-Q4H PRN 06/05/18 History Inhaler] Ferrous Sulfate [Feosol] 325 mg PO DAILY 06/05/18 06/05/18 History Ibuprofen [Motrin] 800 mg PO TID PRN 06/05/18 06/05/18 History Omeprazole 20 mg PO DAILY 06/05/18 06/05/18 History Allergies Allergy/AdvReac Type Severity Reaction Status Date / Time No Known Allergies Allergy Verified 06/05/18 14:07 Physical Examination - Vital Signs Vital Signs: Vital Signs Temp Pulse Resp BP Pulse Ox 07/13/18 15:19 126 H 06/07/18 14:30 133 H 99/59 95 06/07/18 14:00 134 H 97/58 94 L 06/07/18 13:30 130 H 102/58 95 06/07/18 13:00 124 H 95/60 96 06/07/18 12:30 124 H 97/60 95 06/07/18 12:00 99.9 F H 124 H 20 95/55 95 06/07/18 11:30 123 H 100/58 96 06/07/18 11:16 122 H 06/07/18 11:06 123 H 20 06/07/18 11:00 102.3 F H 121 H 96/58 96 06/07/18 10:30 119 H 102/64 96 06/07/18 10:00 121 H 104/60 97 06/07/18 09:30 102.2 F H 127 H 104/65 93 L 06/07/18 09:00 137 H 101/61 94 L 06/07/18 08:30 123 H 111/68 06/07/18 08:00 100.7 F H 123 H 97/58 96 06/07/18 07:30 122 H 84/60 100 06/07/18 07:27 115 H 06/07/18 07:17 116 H 20 06/07/18 07:00 112 H 20 100/59 100 06/07/18 06:30 112 H 20 98/61 96 06/07/18 06:00 113 H 20 99/60 97 06/07/18 05:30 117 H 20 97/56 94 L 06/07/18 05:00 118 H 26 H 98/64 90 L 06/07/18 04:30 115 H 22 104/64 94 L 06/07/18 04:00 99.4 F 115 H 22 96/63 95 06/07/18 03:31 112 H 06/07/18 03:30 114 H 20 94/60 98 06/07/18 03:15 110 H 06/07/18 03:00 108 H 20 87/55 99 06/07/18 02:30 110 H 20 85/58 99 06/07/18 02:00 113 H 20 87/55 96 06/07/18 01:30 104 H 20 109/73 92 L 06/07/18 01:00 86 20 104/65 96 06/07/18 00:30 87 104/69 95 06/07/18 00:02 100 20 112/70 95 06/07/18 00:00 98.6 F 97 20 112/70 96 06/06/18 23:30 86 20 105/68 97 06/06/18 23:20 83 06/06/18 23:06 96 06/06/18 23:00 86 20 101/68 95 06/06/18 22:30 97 20 102/64 95 06/06/18 22:00 87 20 103/70 96 06/06/18 21:30 86 20 106/72 95 06/06/18 21:00 99.3 F 85 20 95/65 95 06/06/18 20:30 84 20 98/64 97 06/06/18 20:00 92 20 108/71 94 L 06/06/18 19:30 86 20 103/65 96 06/06/18 19:23 76 06/06/18 19:06 96 06/06/18 19:00 83 20 96/65 95 06/06/18 18:30 87 20 99/67 94 L 06/06/18 18:00 90 20 97/66 96 06/06/18 17:30 90 20 100/65 96 06/06/18 17:00 89 22 91/61 96 06/06/18 16:30 92 21 97/64 90 L 06/06/18 16:09 94 06/06/18 16:00 98 F 76 20 105/68 93 L 06/06/18 15:43 90 06/06/18 15:30 85 21 110/49 96 Intake and Output 06/07/18 06/07/18 06/07/18 06:59 14:59 22:59 Intake Total 2933.468 2043.85 Output Total 580 770 Balance 2353.468 1273.85 Intake: IV 1084 461 0.9 at KVO 160 140 0.9 for pressure bag 24 21 Ampicillin-Sulbactam 3 gm 100 200 In Sodium Chloride 0.9% 100 ml @ 100 mls/hr IVPB Q6HR [facility] Rx#:[id number] Mvi, Adult No.4 with Vit 700 K 10 ml Thiamine 100 mg Folic Acid 1 mg In Sodium Chloride 0.9% 1,000 ml @ 100 mls/hr IV .BY DURATION [facility] Rx#: [id number] Sodium Chloride 0.9% 1, 100 100 000 ml @ 100 mls/hr IV . Q10H [facility]A Rx#:[id number] Intake, IV Titration 2695.063 0411.85 Amount Magnesium Sulfate-D5w Pmx 100 1 gm In Dextrose/Water 1 100ml.bag @ 100 mls/hr IVPB Q1H [facility] Rx#: [id number] Mvi, Adult No.4 with Vit 1011.2 K 10 ml Thiamine 100 mg Folic Acid 1 mg In Sodium Chloride 0.9% 1,000 ml @ 100 mls/hr IV .BY DURATION [facility] Rx#: [id number] Norepinephrine 4 mg In 246.5 212.5 Dextrose 5% in Water 250 ml @ Titrate IV .Q0M [facility] Rx#:[id number] Propofol 1,000 mg In 211.768 80.35 Empty Bag 1 bag @ Titrate IV .Q0M [facility] Rx#: [id number] Sodium Chloride 0.9% 1, 430 000 ml @ 100 mls/hr IV . BY DURATION [facility] Rx#: [id number] Vancomycin 1,500 mg In 250 Sodium Chloride 0.9% 250 ml @ 125 mls/hr IVPB Q8H [facility] Rx#:[id number] Tube Feeding 320 450 Other 60 60 Output: Urine 580 770 Other: Voiding Method Indwelling Catheter Indwelling Catheter # Bowel Movements 2 Weight 81.4 kg 81.4 kg - Constitutional General appearance: average body habitus - EENT EENT: PERRL, mucous membranes moist - Respiratory Respiratory: lungs clear, normal breath sounds - Cardiovascular Cardiovascular: regular rate, normal S1, normal S2 Extremities: no peripheral edema bilaterally - Gastrointestinal Gastrointestinal: normoactive bowel sounds - Integumentary Integumentary: normal - Neurologic Cranial nerve examination: PERRL, EOMI, face symmetric, intact gag reflex, intact corneal reflex Speech examination: intact Sensorimotor examination: intact Motor examination - right side: 11/30: biceps, triceps, wrist flexion, wrist extension, informatics nurse, hip flexors, knee extensors, dorsiflexion, toe extension (EHL) , plantarflexion Motor examination - left side: 11/30: biceps, triceps, wrist flexion, wrist extension, informatics nurse, hip flexors, knee extensors, dorsiflexion, toe extension (EHL) , plantarflexion Detailed sensory examination: intact Reflex and gait examination: intact Reflexes: 1+: ankle, bicep, knee, tricep - Musculoskeletal Musculoskeletal: no pain - Psychiatric Psychiatric: mood/affect appropriate Results - Laboratory Findings CBC and BMP: 06/07/18 04:39 06/07/18 04:39 Abnormal Lab Findings: Abnormal Labs 06/05/18 06/05/18 06/05/18 12:10 12:10 12:10 WBC 37.6 H* RBC 3.59 L Hgb 10.2 L Hct 32.7 L MCHC RDW 18.4 H Plt Count 677 H Neutrophils # (Manual) 29.30 H Lymphocytes # (Manual) Monocytes # (Manual) 3.01 H Eosinophils # (Manual) 0.75 H Metamyelocytes # (Man) 0.38 H Myelocytes # (Manual) 0.38 H INR ABG pH ABG pCO2 ABG pO2 ABG HCO3 ABG Total CO2 ABG O2 Saturation Sodium 127 L Chloride 78 L* Carbon Dioxide 19 L Creatinine Glucose 202 H POC Glucose (mg/dL) Plasma Lactic Acid Shoaib Calcium Magnesium Total Bilirubin AST 108 H Ammonia Total Creatine Kinase 254 H CK-MB (CK-2) 4.9 H* Troponin I 0.035 H* Total Protein Albumin 3.1 L Urine Blood Urine Bacteria 06/05/18 06/05/18 06/05/18 12:10 12:10 12:31 WBC RBC Hgb Hct MCHC RDW Plt Count Neutrophils # (Manual) Lymphocytes # (Manual) Monocytes # (Manual) Eosinophils # (Manual) Metamyelocytes # (Man) Myelocytes # (Manual) INR 1.2 H ABG pH <7.00 L* ABG pCO2 97 H* ABG pO2 148 H ABG HCO3 ABG Total CO2 25 H ABG O2 Saturation Sodium Chloride Carbon Dioxide Creatinine Glucose POC Glucose (mg/dL) Plasma Lactic Acid Shoaib 12.6 H* Calcium Magnesium Total Bilirubin AST Ammonia Total Creatine Kinase CK-MB (CK-2) Troponin I Total Protein Albumin Urine Blood Urine Bacteria 06/05/18 06/05/18 06/05/18 13:23 17:20 20:32 WBC RBC Hgb Hct MCHC RDW Plt Count Neutrophils # (Manual) Lymphocytes # (Manual) Monocytes # (Manual) Eosinophils # (Manual) Metamyelocytes # (Man) Myelocytes # (Manual) INR ABG pH 7.15 L* ABG pCO2 65 H ABG pO2 331 H ABG HCO3 ABG Total CO2 25 H ABG O2 Saturation 99.8 H Sodium Chloride Carbon Dioxide Creatinine Glucose POC Glucose (mg/dL) 133 H Plasma Lactic Acid Shoaib Calcium Magnesium Total Bilirubin AST Ammonia 53 H Total Creatine Kinase CK-MB (CK-2) Troponin I Total Protein Albumin Urine Blood Urine Bacteria 06/05/18 06/05/18 06/05/18 20:54 21:15 23:45 WBC RBC Hgb Hct MCHC RDW Plt Count Neutrophils # (Manual) Lymphocytes # (Manual) Monocytes # (Manual) Eosinophils # (Manual) Metamyelocytes # (Man) Myelocytes # (Manual) INR ABG pH ABG pCO2 ABG pO2 ABG HCO3 ABG Total CO2 ABG O2 Saturation Sodium Chloride Carbon Dioxide Creatinine Glucose POC Glucose (mg/dL) 131 H 165 H Plasma Lactic Acid Shoaib Calcium Magnesium Total Bilirubin AST Ammonia Total Creatine Kinase CK-MB (CK-2) Troponin I Total Protein Albumin Urine Blood Small H Urine Bacteria Rare H 06/06/18 06/06/18 06/06/18 04:13 04:30 04:30 WBC 42.2 H* RBC 3.21 L Hgb 9.2 L Hct 29.0 L MCHC RDW 18.8 H Plt Count 543 H Neutrophils # (Manual) 40.50 H Lymphocytes # (Manual) 0.42 L Monocytes # (Manual) 1.27 H Eosinophils # (Manual) Metamyelocytes # (Man) 0.42 H Myelocytes # (Manual) 0.42 H INR ABG pH 7.33 L ABG pCO2 55 H ABG pO2 ABG HCO3 29 H ABG Total CO2 31 H ABG O2 Saturation Sodium 131 L Chloride 92 L Carbon Dioxide Creatinine Glucose 149 H POC Glucose (mg/dL) Plasma Lactic Acid Shoaib Calcium 7.6 L Magnesium 1.3 L Total Bilirubin AST Ammonia Total Creatine Kinase CK-MB (CK-2) Troponin I Total Protein Albumin Urine Blood Urine Bacteria 06/06/18 06/06/18 06/06/18 04:30 05:50 12:16 WBC RBC Hgb Hct MCHC RDW Plt Count Neutrophils # (Manual) Lymphocytes # (Manual) Monocytes # (Manual) Eosinophils # (Manual) Metamyelocytes # (Man) Myelocytes # (Manual) INR 1.3 H ABG pH ABG pCO2 ABG pO2 ABG HCO3 ABG Total CO2 ABG O2 Saturation Sodium Chloride Carbon Dioxide Creatinine Glucose POC Glucose (mg/dL) 182 H 201 H Plasma Lactic Acid Shoaib Calcium Magnesium Total Bilirubin AST Ammonia Total Creatine Kinase CK-MB (CK-2) Troponin I Total Protein Albumin Urine Blood Urine Bacteria 06/06/18 06/06/18 06/07/18 17:58 23:41 04:33 WBC RBC Hgb Hct MCHC RDW Plt Count Neutrophils # (Manual) Lymphocytes # (Manual) Monocytes # (Manual) Eosinophils # (Manual) Metamyelocytes # (Man) Myelocytes # (Manual) INR ABG pH ABG pCO2 55 H ABG pO2 67 L ABG HCO3 33 H ABG Total CO2 35 H ABG O2 Saturation 92.7 L Sodium Chloride Carbon Dioxide Creatinine Glucose POC Glucose (mg/dL) 173 H 173 H Plasma Lactic Acid Shoaib Calcium Magnesium Total Bilirubin AST Ammonia Total Creatine Kinase CK-MB (CK-2) Troponin I Total Protein Albumin Urine Blood Urine Bacteria 06/07/18 06/07/18 06/07/18 04:39 04:39 04:39 WBC 38.1 H* RBC 3.13 L Hgb 8.6 L Hct 28.8 L MCHC 30.0 L RDW 18.8 H Plt Count 484 H Neutrophils # (Manual) 36.10 H Lymphocytes # (Manual) 0.76 L Monocytes # (Manual) 1.91 H Eosinophils # (Manual) Metamyelocytes # (Man) Myelocytes # (Manual) INR ABG pH ABG pCO2 ABG pO2 ABG HCO3 ABG Total CO2 ABG O2 Saturation Sodium 135 L Chloride 97 L Carbon Dioxide 33 H Creatinine 0.50 L Glucose 128 H POC Glucose (mg/dL) Plasma Lactic Acid Shoaib Calcium 8.1 L Magnesium Total Bilirubin <0.1 L AST Ammonia 31 H Total Creatine Kinase CK-MB (CK-2) Troponin I Total Protein 5.1 L Albumin 2.2 L Urine Blood Urine Bacteria 06/07/18 06/07/18 05:44 12:05 WBC RBC Hgb Hct MCHC RDW Plt Count Neutrophils # (Manual) Lymphocytes # (Manual) Monocytes # (Manual) Eosinophils # (Manual) Metamyelocytes # (Man) Myelocytes # (Manual) INR ABG pH ABG pCO2 ABG pO2 ABG HCO3 ABG Total CO2 ABG O2 Saturation Sodium Chloride Carbon Dioxide Creatinine Glucose POC Glucose (mg/dL) 152 H 173 H Plasma Lactic Acid Shoaib Calcium Magnesium Total Bilirubin AST Ammonia Total Creatine Kinase CK-MB (CK-2) Troponin I Total Protein Albumin Urine Blood Urine Bacteria Assessment and Plan (1) Acute metabolic encephalopathy Current Visit: Yes Status: Acute Code(s): G93.41 - METABOLIC ENCEPHALOPATHY SNOMED Code(s): 21499433 (2) Respiratory failure Current Visit: Yes Status: Acute Code(s): J96.90 - RESPIRATORY FAILURE, UNSP , UNSP W HYPOXIA OR HYPERCAPNIA SNOMED Code(s): 834084973 (3) Sepsis Current Visit: Yes Status: Acute Code(s): A41.9 - SEPSIS, UNSPECIFIED ORGANISM SNOMED Code(s): 75364053 (4) Alcohol dependence with withdrawal Current Visit: No Status: Acute Code(s): F10.239 - ALCOHOL DEPENDENCE WITH WITHDRAWAL, UNSPECIFIED SNOMED Code(s): 95370405 (5) Seizure disorder Current Visit: No Status: Acute Code(s): G40.909 - EPILEPSY, UNSP, NOT INTRACTABLE, WITHOUT STATUS EPILEPTICUS SNOMED Code(s): 527437429 Plan: This patient is a 52-year-old male who was evaluated today in the intensive care unit for altered mental status. Patient has a history of severe alcohol abuse for several years. He has had multiple admissions for alcohol withdrawal syndrome. He was intubated and transferred to the intensive care unit soon after admission to the ER. He was found unresponsive at home. He is currently on a CIWA protocol. He underwent a computed tomography scan of the brain initially on admission which revealed no acute intracranial hemorrhage or midline shift. There was mild to moderate diffuse cerebral atrophy and chronic small vessel ischemic changes noted. The patient remains intubated and on Diprivan drip as well as Levophed. He remains totally sedated at this time. He has spiked a temperature of 102.7 despite current antibiotics. We have recommended the patient undergo lumbar puncture for further evaluation to rule out meningitis or LICENSED PSYCHOLOGIST infection. We will follow this patient closely with infectious disease. He is also being placed on thiamine and folate with multivitamins. He should be continued on CIWA protocol given his history of alcohol withdrawal seizures in the past. His overall prognosis at this time remains very guarded. This case was discussed at length with the patient's mother who was at bedside in the ICU. All of her questions were answered. She is aware of his guarded condition. Time with Patient: Greater than 30
--- NOTE | 2018-06-07 23:19 | PN ---
PROGRESS NOTE SUBJECTIVE: 52-year-old white male remains on the ventilator at this time. Neurology consult recommended a spinal tap due to temperature of a 102 despite broad-spectrum antibiotics. He is on alcohol withdrawal protocol with renal insufficiency protocol, CIWA protocol for alcohol withdrawal. today in ICU, not responding to painful stimuli. Prognosis is very poor. CARDIOVASCULAR: S1, S2. LUNGS: Transmitted upper sounds. ICU vitals reviewed. Consults reviewed. Psych: He is obtunded on the vent. Elevated lactic acid, metabolic acidosis. Prognosis extremely guarded. Continue broad-spectrum antibiotics. Possible spinal tap in the morning. Large green secretions in the ET tube. PEEP of 8, FiO2 100%. He is 100 mL an hour. ABGs reviewed. Tachycardic. Ativan given for CIWA protocol. Tolerated tube feedings. Urine output 7 mL an hour. Albumin is down to 31. ASSESSMENT: 1. Hypercapnic hypoxemic respiratory failure. 2. Toxic metabolic encephalopathy. 3. Severe lactic acidosis and anion gap metabolic acidosis. 4. Severe dehydration. 5. Aspiration pneumonia. 6. Non ST elevation myocardial infarction. 7. Septic shock. 8. Leukocytosis. 9. Nicotine addiction. 10.Alcohol abuse. 11.Alcohol withdrawal. Lactose will be given b.i.d. Repeat ammonia in the a.m., CIWA protocol, Accu-Chek protocol, Levophed to keep his blood pressure up, status post bronchoscopy. Prognosis is poor. Awaiting for cultures come back. ICU TIME: 40 minutes. MMODL / IJN: [id number] /
[2018-06-08] MEDS: HEPARIN SODIUM,PORCINE 5,000 UNIT/ML 1 ML VIAL SQ SCH ×3 (00:07→15:39)
[2018-06-08] MEDS: AMPICILLIN-SULBACTAM 3 GM in SODIUM CHLORIDE 0.9% 100 ML IVPB SCH ×4 (00:08→18:59)
[2018-06-08 00:17] LABS: Glucose,Whole Blood 171 mg/dL (75-99)
[2018-06-08] MEDS: INSULIN ASPART 100 UNIT/ML 1 ML 10 ML VIAL SQ SCH ×8 (00:21→18:30)
[2018-06-08] MEDS: VANCOMYCIN 1,500 MG in SODIUM CHLORIDE 0.9% 250 ML IVPB SCH ×3 (03:26→20:06)
[2018-06-08] MEDS: HYDROCORTISONE SUCCINATE 100 MG/2 ML VIAL IV SCH ×4 (03:26→21:16)
[2018-06-08] MEDS: ASCORBIC ACID INJ 1,500 MG in SODIUM CHLORIDE 0.9% 100 ML IVPB SCH ×3 (03:26→20:05)
[2018-06-08] MEDS: PROPOFOL 1,000 MG in EMPTY BAG 1 BAG IV SCH ×4 (03:27→18:44)
[2018-06-08] MEDS: IPRATROPIUM-ALBUTEROL 3 ML NEB INHALATION SCH ×6 (03:39→23:28)
[2018-06-08 04:52] LABS: ABG Base Excess 7.2 mmol/L; ABG HCO3 33 mmol/L (21-25); ABG PCO2 59 mmHg (35-45); ABG PH 7.35 (7.35-7.45); ABG PO2 86 mmHg (83-108); ABG TCO2 35 mmol/L (19-24)
[2018-06-08 05:15] LABS: Anisocytosis Slight; Basophils % (A) 0 %; Eosinophils % (A) 0 %; HCT 25.2 % (39.0-53.0); HGB 7.6 gm/dL (13.0-17.5); Hypochromasia Marked; Lymphocytes # (A) 1.2 k/uL (1.0-4.8); Lymphocytes % (A) 3 %; MCH 27.9 pg (25.0-35.0); MCHC 30.3 g/dL (31.0-37.0); MCV 92.3 fL (80.0-100.0); Mean Platelet Volume 6.6; Monocytes # (A) 0.7 k/uL (0-1.0); Monocytes % (A) 2 %; Neutrophils # (A) 36.5 k/uL (1.3-7.7); Neutrophils % (A) 94 %; Platelet Count 383 k/uL (150-450); RBC 2.73 m/uL (4.30-5.90); RDW 18.6 % (11.5-15.5)
[2018-06-08] MEDS: SODIUM CHLORIDE 0.9% 99 ML with VASOPRESSIN 20 UNIT IV SCH ×2 (05:28)
[2018-06-08] MEDS: 1: MVI, ADULT NO.4 WITH VIT K 10 ML, THIAMINE 100 MG, FOLIC ACID 1 MG in SODIUM CHLORIDE IV SCH ×12 (05:28→15:44)
[2018-06-08 05:32] LABS: Glucose,Whole Blood 211 mg/dL (75-99)
[2018-06-08 05:37] LABS: INR 1.2 (<1.2); Prothrombin Time 11.3 sec (9.0-12.0)
[2018-06-08 05:38] LABS: Anion Gap 7 mmol/L; Blood Urea Nitrogen 15 mg/dL (9-20); Calcium 7.7 mg/dL (8.4-10.2); Carbon Dioxide 30 mmol/L (22-30); Chloride 100 mmol/L (98-107); Glucose 173 mg/dL (74-99); Magnesium 1.5 mg/dL (1.6-2.3); Phosphorus 3.8 mg/dL (2.5-4.5); Potassium 3.7 mmol/L (3.5-5.1); Sodium 137 mmol/L (137-145)
[2018-06-08 05:41] LABS: WBC 38.7 k/uL (3.8-10.6)
[2018-06-08] MEDS ORDERED: POTASSIUM BICARBONATE/CIT AC 20 MEQ TABLET.EFF NG-TUBE SCH (06:00)
[2018-06-08] MEDS: MAGNESIUM SULFATE-D5W PMX 1 GM in DEXTROSE/WATER 1 100ML.BAG IVPB SCH ×5 (06:39→18:54)
--- NOTE | 2018-06-08 06:47 | XR ---
EXAMINATION TYPE: XR chest 1V portable DATE OF EXAM: 06/08/2018 HISTORY: Tube placement. REFERENCE: Previous study dated 06/07/2018. FINDINGS: The patient is ET tube, NG tube and right internal jugular catheter remain in place, unchan ged in appearance. There is airspace disease in the right lower lobe. There is patchy airspace disease in the left lung. The heart is not enlarged. There is a right-sided effusion. IMPRESSION: 1. CONTINUING RIGHT LOWER LOBE AIRSPACE DISEASE WITH A CONCOMITANT EFFUSION. 2. PATCHY AIRSPACE DISEASE ON THE LEFT MAY BE SECONDARY TO PATCHY PNEUMONIA.
[2018-06-08] MEDS: BUDESONIDE 0.5 MG/2 ML NEBU INHALATION SCH ×2 (07:29→20:19)
[2018-06-08 08:07] LABS: Glucose,Whole Blood 218 mg/dL (75-99)
[2018-06-08] MEDS ORDERED: LACTULOSE 20 GM/30 ML CUP PO SCH (09:00)
[2018-06-08] MEDS: CHLORHEXIDINE GLUCONATE 15 ML CUP MUCOUS MEM SCH ×2 (09:01→20:40)
[2018-06-08] MEDS: PANTOPRAZOLE 40 MG/10 ML VIAL IV SCH (09:02)
[2018-06-08] MEDS: THIAMINE 200 MG in SODIUM CHLORIDE 0.9% 100 ML IVPB SCH ×2 (09:02→20:40)
[2018-06-08] MEDS ORDERED: ATROPINE SULFATE 0.1 MG/ML 10ML SYRINGE ONE (11:33)
[2018-06-08] MEDS ORDERED: SODIUM CHLORIDE 0.9% 500 ML IV ONE (11:50)
[2018-06-08] MEDS: NOREPINEPHRINE 4 MG in DEXTROSE 5% IN WATER 250 ML IV SCH ×2 (12:00)
[2018-06-08 12:13] LABS: Glucose,Whole Blood 212 mg/dL (75-99)
[2018-06-08 14:24] LABS: Magnesium 1.8 mg/dL (1.6-2.3); Potassium 3.7 mmol/L (3.5-5.1)
--- NOTE | 2018-06-08 14:28 | P.PCN ---
Date of Procedure: 06/08/18 Procedure(s) Performed: Preoperative diagnosis: Altered mental status Post operative diagnoses: altered Mental status Anesthesia local infiltration with lidocaine 1% 2 mL. Condition: Critical Complication: none. Description of the procedure procedure risk and benefits discussed with the family, consent signed. Patient in the [facility], placed in lateral position back prepped with chlorhexidine 3 times been local infiltration of the skin and subcutaneous tissue with lidocaine 1% 2 mL for skin and subcu interstitial frustrations at L4 5 levels then 22-gauge Quincke-type needle advanced slowly at L4- 5 interlaminar space there was positive cerebrospinal fluid which was clear, no heme, no paresthesia ,total of 9 ML of clear cerebrospinal fluid collected in 4 different tubes 2-2-1/2 mL in each, then the needle removed and a Band-Aid applied, and patient tolerated the procedure well without any complications.
[2018-06-08] MEDS ORDERED: Magnesium Replacement Protocol 1 EACH MISC MISCELLANE PRN (15:33)
[2018-06-08] MEDS ORDERED: Potassium Replacement Protocol 1 EACH MISC MISCELLANE PRN (15:33)
[2018-06-08] MEDS: POTASSIUM CHLORIDE 10 MEQ in WATER FOR INJECTION 1 100ML.BAG IVPB SCH ×2 (15:45→18:53)
--- NOTE | 2018-06-08 15:56 | EEG ---
ELECTROENCEPHALOGRAM REPORT DATE OF EE06/08/2018 ELECTROENCEPHALOGRAPHIC EXAMINATION REPORT: INDICATION FOR EXAMINATION: This patient is a 52-year-old male being evaluated for severe sepsis and hypotension. Patient remains intubated on the ventilator and is unresponsive. Patient has a history of alcohol abuse and alcohol-related seizure disorder in the past. AGE: 52. EEG FINDINGS: A routine 21-channel awake digital EEG recording was accomplished utilizing the 10-20 international system with bipolar and referential montages. The background activity at a sensitivity setting of 7 microvolts reveals a low to medium amplitude, poorly developed and poorly sustained 4-5 Hz activity over the posterior head regions. This posterior rhythm attenuates minimally to eye opening. There is a small amount of low amplitude 18-20 Hz beta activity seen maximally over the anterior head regions. Muscle and movement artifact was observed on a few occasions during the tracing. Hyperventilation was not performed. Photic stimulation at flash frequencies of 2-30 Hz produced a minimal occipital driving response. No epileptiform discharges were seen. IMPRESSION: This EEG gives evidence of a severe widespread diffuse disturbance in cerebral function. The EEG failed to reveal any focal, lateralized, or epileptiform abnormalities. If clinically indicated, a follow-up EEG is recommended. Clinical correlation is recommended. MMODL / IJN: [id number] /
--- NOTE | 2018-06-08 16:32 | PN ---
PROGRESS NOTE SUBJECTIVE: [id number]-old white male who remains on the ventilator still. Remains on IV Unasyn, heparin, hydrocortisone protocol, CIWA protocol, updraft treatments. He had spinal tap today. Awaiting recommendations from the spinal tap. Urine toxicology screen was negative. C difficile was negative. CARDIOVASCULAR: S1, S2. LUNGS: Scattered wheeze. Ventilator sounds. GI: Soft. Remains comfortably on the vent. ASSESSMENT: 1. Sepsis. 2. Aspiration pneumonia. 3. Alcoholism. 4. Metabolic encephalopathy. 5. Dehydration. Continue current treatment. Prognosis extremely guarded. Discussed the case with the patient's mom. Possibly inpatient rehab if he survives this. Will need inpatient rehab for alcoholism. ICU time 30 minutes. ANGELICA / MARTÍNN: [id number] /
--- NOTE | 2018-06-08 16:54 | P.PN ---
Subjective Progress Note Date: 06/08/18 This patient is a 52-year-old male who is seen today in the intensive care unit for altered mental status and obtundation. Patient remains intubated on the ventilator with no significant change in his overall neurological status from yesterday. It was recommended the patient to undergo a lumbar puncture for further evaluation of sepsis. Lumbar puncture was completed today by anesthesia. Results are pending. Patient continues on his CPAP protocol. He is receiving Unasyn and vancomycin for antibiotic coverage. Infectious disease is also following. As noted his spinal tap was completed today however results are pending at this time. His C. difficile study came back negative. He remains intubated and obtunded. He is not having any signs of spontaneous movements. He did undergo routine EEG today which is reviewed and reveals severe slowing with background activity of 4-5 Hz with no epileptiform discharges. We reviewed all of these test results today in detail with the patient's mother who was at bedside in the intensive care unit. She is aware of his very poor prognosis thus far. She is wanting him to be considered for inpatient rehab if he is able to show improvement down the line. The patient has a history of alcohol is a man has had difficulty with abstinence in the past. According to his mother he has not sought out appropriate drug rehabilitation in the past. We will continue close monitoring for the patient in the ICU. As noted his overall prognosis at this time remains very guarded. Patient's mother is aware of his guarded condition at this time. Objective - Vital Signs Vital signs: Vital Signs Temp 98 F 06/08/18 12:00 Pulse 80 06/08/18 12:30 Resp 29 H 06/08/18 12:30 BP 108/66 06/08/18 12:30 Pulse Ox 99 06/08/18 12:30 Intake & Output 06/07/18 06/08/18 06/08/18 18:59 06:59 18:59 Intake Total 3150.717 4858.558 2676.932 Output Total 1146 807 511 Balance 717 4051.558 2165.932 Weight 81.4 kg 81.4 kg Intake: IV 576 2246 1871 0.9 at KVO 240 110 0.9 for pressure bag 36 36 21 Ampicillin-Sulbactam 3 gm 200 200 100 In Sodium Chloride 0.9% 100 ml @ 100 mls/hr IVPB Q6HR [facility] Rx#:[id number] Ascorbic Acid Inj 1,500 200 100 mg In Sodium Chloride 0.9 % 100 ml @ 103 mls/hr IVPB Q6H [facility] Rx#: [id number] Magnesium Sulfate-D5w Pmx 200 1 gm In Dextrose/Water 1 100ml.bag @ 100 mls/hr IVPB Q1H [facility] Rx#: [id number] Mvi, Adult No.4 with Vit 600 K 10 ml Thiamine 100 mg Folic Acid 1 mg In Sodium Chloride 0.9% 1,000 ml @ 100 mls/hr IV .BY DURATION [facility] Rx#: [id number] Sodium Chloride 0.9% 1, 100 500 100 000 ml @ 100 mls/hr IV . Q10H [facility] Rx#:[id number] Sodium Chloride 0.9% 500 1000 ml @ 150 mls/hr IV . Q3H20M [facility] Rx#:[id number] Thiamine 200 mg In Sodium 100 100 Chloride 0.9% 100 ml @ 200 mls/hr IVPB Q12HR [facility] Rx#:[id number] Vancomycin 1,500 mg In 500 250 Sodium Chloride 0.9% 250 ml @ 125 mls/hr IVPB Q8H [facility] Rx#:[id number] Intake, IV Titration 1185.793 2057.558 185.932 Amount Ampicillin-Sulbactam 3 gm 100 In Sodium Chloride 0.9% 100 ml @ 100 mls/hr IVPB Q6HR [facility] Rx#:[id number] Ascorbic Acid Inj 1,500 100 mg In Sodium Chloride 0.9 % 100 ml @ 103 mls/hr IVPB Q6H [facility] Rx#: [id number] Magnesium Sulfate-D5w Pmx 100 1 gm In Dextrose/Water 1 100ml.bag @ 100 mls/hr IVPB Q1H [facility] Rx#: [id number] Mvi, Adult No.4 with Vit 1011.2 K 10 ml Thiamine 100 mg Folic Acid 1 mg In Sodium Chloride 0.9% 1,000 ml @ 100 mls/hr IV .BY DURATION [facility] Rx#: [id number] Norepinephrine 4 mg In 462.5 Dextrose 5% in Water 250 ml @ Titrate IV .Q0M [facility] Rx#:[id number] Propofol 1,000 mg In 194.217 151.358 185.932 Empty Bag 1 bag @ Titrate IV .Q0M [facility] Rx#: [id number] Sodium Chloride 0.9% 1, 430 1000 000 ml @ 100 mls/hr IV . BY DURATION [facility] Rx#: [id number] Sodium Chloride 0.9% 99 48 ml @ 0.04 UNITS/MIN 12 mls/hr IV .Q8H20M [facility] with Vasopressin 20 unit Rx#:[id number] Thiamine 200 mg In Sodium 100 Chloride 0.9% 100 ml @ 200 mls/hr IVPB Q12HR [facility] Rx#:[id number] Vancomycin 1,500 mg In 250 Sodium Chloride 0.9% 250 ml @ 125 mls/hr IVPB Q8H [facility] Rx#:[id number] Tube Feeding 700 420 560 Other 90 30 60 Output: Urine 1144 805 510 Stool 2 2 1 Other: Voiding Method Indwelling Catheter Indwelling Catheter Indwelling Catheter # Bowel Movements 1 - Exam Physical examination: PHYSICAL EXAMINATION: Patient is intubated on the ventilator and remains unresponsive in the intensive care unit. VITAL SIGNS: Blood pressure is [108/67]. Heart rate is [80]. Respiration is [29] . Temperature is [98.0]. HEENT: Head is atraumatic, neck is supple, there were no carotid bruits. CHEST: Lungs are clear to auscultation and percussion. CARDIAC: S1, S2 normal rate and rhythm. There is no murmur. ABDOMEN: Soft and nontender. Bowel sounds are present. EXTREMITIES: There is no pedal edema. Peripheral pulses are present. Neurological examination: Patient's neurological examination unchanged from yesterday. Patient's neurological status has not changed from yesterday. He remains comatose. - Labs CBC & Chem 7: 06/08/18 04:44 06/08/18 14:00 Labs: Abnormal Lab Results - Last 24 Hours (Table) 06/07/18 06/08/18 06/08/18 Range/Units 18:06 00:15 04:43 WBC (3.8-10.6) k/uL RBC (4.30-5.90) m/uL Hgb (13.0-17.5) gm/dL Hct (39.0-53.0) % MCHC (31.0-37.0) g/dL RDW (11.5-15.5) % Neutrophils # (1.3-7.7) k/uL INR (<1.2) ABG pCO2 59 H (35-45) mmHg ABG HCO3 33 H (21-25) mmol/L ABG Total CO2 35 H (19-24) mmol/L Creatinine (0.66-1.25) mg/dL Glucose (74-99) mg/dL POC Glucose (mg/dL) 206 H 171 H (75-99) mg/dL Calcium (8.4-10.2) mg/dL Magnesium (1.6-2.3) mg/dL 06/08/18 06/08/18 06/08/18 Range/Units 04:44 04:44 04:44 WBC 38.7 H* (3.8-10.6) k/uL RBC 2.73 L (4.30-5.90) m/uL Hgb 7.6 L (13.0-17.5) gm/dL Hct 25.2 L (39.0-53.0) % MCHC 30.3 L (31.0-37.0) g/dL RDW 18.6 H (11.5-15.5) % Neutrophils # 36.5 H (1.3-7.7) k/uL INR 1.2 H (<1.2) ABG pCO2 (35-45) mmHg ABG HCO3 (21-25) mmol/L ABG Total CO2 (19-24) mmol/L Creatinine 0.50 L (0.66-1.25) mg/dL Glucose 173 H (74-99) mg/dL POC Glucose (mg/dL) (75-99) mg/dL Calcium 7.7 L (8.4-10.2) mg/dL Magnesium 1.5 L (1.6-2.3) mg/dL 06/08/18 06/08/18 06/08/18 Range/Units 05:30 08:06 12:11 WBC (3.8-10.6) k/uL RBC (4.30-5.90) m/uL Hgb (13.0-17.5) gm/dL Hct (39.0-53.0) % MCHC (31.0-37.0) g/dL RDW (11.5-15.5) % Neutrophils # (1.3-7.7) k/uL INR (<1.2) ABG pCO2 (35-45) mmHg ABG HCO3 (21-25) mmol/L ABG Total CO2 (19-24) mmol/L Creatinine (0.66-1.25) mg/dL Glucose (74-99) mg/dL POC Glucose (mg/dL) 211 H 218 H 212 H (75-99) mg/dL Calcium (8.4-10.2) mg/dL Magnesium (1.6-2.3) mg/dL Microbiology - Last 24 Hours (Table) 06/05/18 12:10 Blood Culture - Preliminary Blood No Growth after 72 hours 06/05/18 19:05 Gram Stain - Final Bronchial Washings - Right Bronchial Washings Culture - Final Assessment and Plan (1) Acute metabolic encephalopathy Current Visit: Yes Status: Acute Code(s): G93.41 - METABOLIC ENCEPHALOPATHY SNOMED Code(s): 81168483 (2) Respiratory failure Current Visit: Yes Status: Acute Code(s): J96.90 - RESPIRATORY FAILURE, UNSP , UNSP W HYPOXIA OR HYPERCAPNIA SNOMED Code(s): 590450321 (3) Sepsis Current Visit: Yes Status: Acute Code(s): A41.9 - SEPSIS, UNSPECIFIED ORGANISM SNOMED Code(s): 38772260 (4) Alcohol dependence with withdrawal Current Visit: No Status: Acute Code(s): F10.239 - ALCOHOL DEPENDENCE WITH WITHDRAWAL, UNSPECIFIED SNOMED Code(s): 07079288 (5) Seizure disorder Current Visit: No Status: Acute Code(s): G40.909 - EPILEPSY, UNSP, NOT INTRACTABLE, WITHOUT STATUS EPILEPTICUS SNOMED Code(s): 112306989 Plan: This patient is a 52-year-old male being followed in the intensive care unit for altered mental status and severe metabolic encephalopathy. Patient underwent lumbar puncture today and we are waiting the spinal fluid results. He remains on a [facility] protocol for alcohol withdrawal syndrome. He has been given Ativan. He did have an episode of severe bradycardia with heart rate down to 45. He is now doing better. He remains on Levophed at 6 mics as well as Diprivan at 40 mics. His blood pressure has remained stable. He underwent a routine EEG which was reviewed and is severely slow. His prognosis at this time remains very guarded. We did discuss his overall neurological status in detail with the mother. She is aware of his poor prognosis. We will continue close neurological follow-up with this patient in the ICU. Further recommendations will be given pending his spinal fluid results. Once again and the case was discussed at length with the patient's mother at bedside in the ICU today and she was updated on his overall poor prognosis. We will continue to follow the patient closely in the intensive care unit during this admission.
[2018-06-08] MEDS: SODIUM FERRIC GLUCONAT-SUCROSE 125 MG in SODIUM CHLORIDE 0.9% 100 ML IVPB SCH (16:58)
[2018-06-08 17:00] LABS: Appearance,CSF Clear; CSF Tube Number 4; Nucleated Cells, CSF 0 u/L (0-5); Red Blood Cell,CSF 1 u/L (0-10)
[2018-06-08] MEDS ORDERED: POTASSIUM CHLORIDE 20 MEQ in WATER FOR INJECTION 1 100ML.BAG IVPB STA (17:35)
[2018-06-08 17:59] LABS: Glucose,Whole Blood 154 mg/dL (75-99)
--- NOTE | 2018-06-08 18:13 | P.PN ---
Subjective Progress Note Date: 06/08/18 (Critical care time spent 45 minutes) Principal diagnosis: Severe hypotension, bradycardia, electrolyte imbalance with hypokalemia and hypomagnesemia, altered mental status encephalopathy, chronic alcohol liver disease, chronic alcoholism, history of seizure disorder 06/08/2018, patient seen and evaluated examined care plan discussed with the primary service as well as the family present at bedside, patient has been having issues associated with significant bradycardia heart rate dropped down into the 40s, I have discontinued the vasopressin and start patient on levo fed drip he does have a central line in the right internal jugular area however he does not have a line which she will be needing for close hemodynamic monitoring , patient remains on 8 mics of levo fed drip as well as propofol of 40 mics, current vent settings include assist control rate of 20 breathing about 21 tidal volume is 550, PEEP is 10, FiO2 is 55%, today's chest x-ray laboratory data reviewed patient has been replaced with magnesium as well as potassium and repeat level continue show a low level was going to repeat it again and put 20 mg of KCl into the IV fluids, patient has a right lower lobe consolidation likely right lower lobe aspiration pneumonia as well as small effusion was patchy infiltrate on the left side as well this seems to be present on the left upper lobe as well as left lower lobe with a small effusion on the left side as well, labs are reviewed the white cell count remains elevated 38,000 not much change from yesterday, hemoglobin appears to be slightly trending down, patient has been noted to have significant degree of diarrhea the lactulose is been discontinued, stool for C. diff as well as checked which is negative diarrhea appears to be related to multifactorial processes including to feed as well as lactulose, arterial blood gases revealed hypercapnia appears to be related to severe pneumonia and COPD, we'll start tapering down the hydrocortisone and bring it to 50 mg every 12, borderline hyperglycemia is present patient is adequately covered with sliding scale insulin Review of the data revealed that this is a 52-year-old gentleman presented to emergency room, patient was found unresponsive and EMS was called. The Patient' s O2 saturation was 50%. He had minimal improvement on nonrebreather. The patient was subsequently intubated in the emergency room. The patient was found to have an elevated lactic acid of 12.6. He was profoundly acidotic with a pH of less than 7.0. The patient was hypotensive and started on Levophed. He is currently on 6 mcg/m of Levophed. He had large amount of green and secretions from the ET tube. It is assumed the patient aspirated. The patient is on 100% FiO2 and PEEP of 8. Bronchoscopy was performed to clear secretions. The patient has been given 2 L of IV fluids in the emergency room. Review of the data also revealed that He has had multiple admissions for alcohol intoxication and subsequently go through withdrawals. The patient has refused alcohol rehab in the past. The patient has required BiPAP in the past. He does drink about a pound of vodka daily. Objective - Vital Signs Vital signs: Vital Signs Temp 98 F 06/08/18 12:00 Pulse 85 06/08/18 15:59 Resp 20 06/08/18 15:30 BP 99/59 06/08/18 15:30 Pulse Ox 94 L 06/08/18 15:30 Intake & Output 06/07/18 06/08/18 06/08/18 18:59 06:59 18:59 Intake Total 3150.717 4858.558 3816.932 Output Total 1146 807 511 Balance 2004.717 4051.558 3305.932 Weight 81.4 kg 81.4 kg Intake: IV 576 2246 1871 0.9 at KVO 240 110 0.9 for pressure bag 36 36 21 Ampicillin-Sulbactam 3 gm 200 200 100 In Sodium Chloride 0.9% 100 ml @ 100 mls/hr IVPB Q6HR [facility] Rx#:[id number] Ascorbic Acid Inj 1,500 200 100 mg In Sodium Chloride 0.9 % 100 ml @ 103 mls/hr IVPB Q6H [facility] Rx#: [id number] Magnesium Sulfate-D5w Pmx 200 1 gm In Dextrose/Water 1 100ml.bag @ 100 mls/hr IVPB Q1H [facility] Rx#: [id number] Mvi, Adult No.4 with Vit 600 K 10 ml Thiamine 100 mg Folic Acid 1 mg In Sodium Chloride 0.9% 1,000 ml @ 100 mls/hr IV .BY DURATION [facility] Rx#: [id number] Sodium Chloride 0.9% 1, 100 500 100 000 ml @ 100 mls/hr IV . Q10H [facility] Rx#:[id number] Sodium Chloride 0.9% 500 1000 ml @ 150 mls/hr IV . Q3H20M [facility] Rx#:[id number] Thiamine 200 mg In Sodium 100 100 Chloride 0.9% 100 ml @ 200 mls/hr IVPB Q12HR [facility] Rx#:[id number] Vancomycin 1,500 mg In 500 250 Sodium Chloride 0.9% 250 ml @ 125 mls/hr IVPB Q8H [facility] Rx#:[id number] Intake, IV Titration 9506.009 9311.558 1185.932 Amount Ampicillin-Sulbactam 3 gm 100 In Sodium Chloride 0.9% 100 ml @ 100 mls/hr IVPB Q6HR [facility] Rx#:[id number] Ascorbic Acid Inj 1,500 100 mg In Sodium Chloride 0.9 % 100 ml @ 103 mls/hr IVPB Q6H [facility] Rx#: [id number] Magnesium Sulfate-D5w Pmx 100 1 gm In Dextrose/Water 1 100ml.bag @ 100 mls/hr IVPB Q1H [facility] Rx#: [id number] Mvi, Adult No.4 with Vit 1011.2 K 10 ml Thiamine 100 mg Folic Acid 1 mg In Sodium Chloride 0.9% 1,000 ml @ 100 mls/hr IV .BY DURATION [facility] Rx#: [id number] Norepinephrine 4 mg In 462.5 Dextrose 5% in Water 250 ml @ Titrate IV .Q0M [facility] Rx#:[id number] Propofol 1,000 mg In 194.217 151.358 185.932 Empty Bag 1 bag @ Titrate IV .Q0M [facility] Rx#: [id number] Sodium Chloride 0.9% 1, 430 1000 1000 000 ml @ 100 mls/hr IV . BY DURATION [facility] Rx#: [id number] Sodium Chloride 0.9% 99 48 ml @ 0.04 UNITS/MIN 12 mls/hr IV .Q8H20M [facility] with Vasopressin 20 unit Rx#:[id number] Thiamine 200 mg In Sodium 100 Chloride 0.9% 100 ml @ 200 mls/hr IVPB Q12HR [facility] Rx#:[id number] Vancomycin 1,500 mg In 250 Sodium Chloride 0.9% 250 ml @ 125 mls/hr IVPB Q8H [facility] Rx#:[id number] Tube Feeding 700 420 700 Other 90 30 60 Output: Urine 1144 805 510 Stool 2 2 1 Other: Voiding Method Indwelling Catheter Indwelling Catheter Indwelling Catheter # Bowel Movements 1 - Exam Gen.: Patient is sedated and intubated on full ventilator support, he does follow commands intermittently HEENT is unremarkable Neck is supple without any lymphadenopathy the triple-lumen site on the right internal jugular area is stable no obvious right heme edema noted Cardiovascular: Tachycardic, regular rate and rhythm, S1/S2 Lungs: Coarse breath sounds bilaterally, with bronchial breath sound at the left base Abdomen: Soft nontender nondistended positive bowel sounds, green bile secreations from OG tube Extremities: No edema Neuro: Unable to assess being on on sedation - Labs CBC & Chem 7: 06/08/18 04:44 06/08/18 14:00 Labs: Abnormal Lab Results - Last 24 Hours (Table) 06/07/18 06/08/18 06/08/18 Range/Units 18:06 00:15 04:43 WBC (3.8-10.6) k/uL RBC (4.30-5.90) m/uL Hgb (13.0-17.5) gm/dL Hct (39.0-53.0) % MCHC (31.0-37.0) g/dL RDW (11.5-15.5) % Neutrophils # (1.3-7.7) k/uL INR (<1.2) ABG pCO2 59 H (35-45) mmHg ABG HCO3 33 H (21-25) mmol/L ABG Total CO2 35 H (19-24) mmol/L Creatinine (0.66-1.25) mg/dL Glucose (74-99) mg/dL POC Glucose (mg/dL) 206 H 171 H (75-99) mg/dL Calcium (8.4-10.2) mg/dL Magnesium (1.6-2.3) mg/dL 06/08/18 06/08/18 06/08/18 Range/Units 04:44 04:44 04:44 WBC 38.7 H* (3.8-10.6) k/uL RBC 2.73 L (4.30-5.90) m/uL Hgb 7.6 L (13.0-17.5) gm/dL Hct 25.2 L (39.0-53.0) % MCHC 30.3 L (31.0-37.0) g/dL RDW 18.6 H (11.5-15.5) % Neutrophils # 36.5 H (1.3-7.7) k/uL INR 1.2 H (<1.2) ABG pCO2 (35-45) mmHg ABG HCO3 (21-25) mmol/L ABG Total CO2 (19-24) mmol/L Creatinine 0.50 L (0.66-1.25) mg/dL Glucose 173 H (74-99) mg/dL POC Glucose (mg/dL) (75-99) mg/dL Calcium 7.7 L (8.4-10.2) mg/dL Magnesium 1.5 L (1.6-2.3) mg/dL 06/08/18 06/08/18 06/08/18 Range/Units 05:30 08:06 12:11 WBC (3.8-10.6) k/uL RBC (4.30-5.90) m/uL Hgb (13.0-17.5) gm/dL Hct (39.0-53.0) % MCHC (31.0-37.0) g/dL RDW (11.5-15.5) % Neutrophils # (1.3-7.7) k/uL INR (<1.2) ABG pCO2 (35-45) mmHg ABG HCO3 (21-25) mmol/L ABG Total CO2 (19-24) mmol/L Creatinine (0.66-1.25) mg/dL Glucose (74-99) mg/dL POC Glucose (mg/dL) 211 H 218 H 212 H (75-99) mg/dL Calcium (8.4-10.2) mg/dL Magnesium (1.6-2.3) mg/dL Microbiology - Last 24 Hours (Table) 06/05/18 12:10 Blood Culture - Preliminary Blood No Growth after 72 hours 06/05/18 19:05 Gram Stain - Final Bronchial Washings - Right Bronchial Washings Culture - Final Assessment and Plan Assessment: Acute hypoxic and hypercapnic respiratory failure Multi lobar Bilateral pneumonia likely aspiration related with right lower lobe consolidation and left-sided patchy infiltrate lower lobe as well as upper lobe Bilateral small pleural effusion Severe electrolyte imbalance with hypokalemia as well as hypomagnesemia being repleted Aspiration pneumonia Severe bradycardia and hypotension patient is been taken off of vasopressin in view fed is being started Likely anemia of chronic disease Septic shock Leukocytosis Anemia, normochromic, normocytic History of DVTs and seizure disorder Hyponatremia Nicotine dependence Hyperglycemia Alcohol abuse Plan: As noted above electrolyte replacement Maintain on current ventilator setting Lower down the steroids Stool for C. difficile checked Electrolytes repleted Add potassium to the IV fluids Levophed to maintain map greater than 65, systolic blood pressure greater than 90 Placement of arterial line and hemodynamic monitoring Broad-spectrum antibiotics Monitor urine output and renal function Insulin sliding scale and Accu-Cheks Duo nebs and Pulmicort CIWA protocol Lactulose being discontinued, repeat ammonia in AM Propofol for sedation Maintenance IV fluids at 100 mL per hour GI and DVT prophylaxis Consult PT and OT for early mobility Tube feeds per dietary recommendations A.m. chest x-ray and ABG Thiamine, folate, multivitamin Seizure and aspiration precautions Patient's mother at bedside is updated to patient's condition, plan of care, procedure explained to the patient's mother Time with Patient: Greater than 30
[2018-06-08 18:31] LABS: Appearance,CSF Clear; CSF Tube Number 1; CSF Tube Volume 1.5; Nucleated Cells, CSF 0 u/L (0-5); Red Blood Cell,CSF 0 u/L (0-10)
--- NOTE | 2018-06-08 18:35 | P.PCN ---
Date of Procedure: 06/08/18 Preoperative Diagnosis: Severe sepsis, septic shock, bilateral multi lobar pneumonia, acute hypoxic respiratory failure, altered mental status encephalopathy Postoperative Diagnosis: As above Procedure(s) Performed: Right radial arterial line placement Anesthesia: local Surgeon: Aden Velazquez Estimated Blood Loss (ml): 3 Condition: critical Disposition: ICU Indications for Procedure: As above Operative Findings: As below Description of Procedure: Patient prepared and draped in a usual fashion and advanced chest was performed on the right hand, using a modified Seldinger technique single-lumen catheter inserted into the right radial artery without any difficulty patient tolerate procedure well no complication noted secured with #3 silk good waveform was obtained.
[2018-06-08] MEDS ORDERED: VANCOMYCIN TROUGH DUE 1 EACH MISC MISCELLANE ONE (19:00)
[2018-06-08 23:55] LABS: Glucose,Whole Blood 176 mg/dL (75-99)
[2018-06-09] MEDS: AMPICILLIN-SULBACTAM 3 GM in SODIUM CHLORIDE 0.9% 100 ML IVPB SCH ×4 (00:25→17:27)
[2018-06-09] MEDS: INSULIN ASPART 100 UNIT/ML 1 ML 10 ML VIAL SQ SCH ×8 (00:25→17:36)
[2018-06-09] MEDS: HEPARIN SODIUM,PORCINE 5,000 UNIT/ML 1 ML VIAL SQ SCH ×3 (00:26→15:37)
[2018-06-09] MEDS: PROPOFOL 1,000 MG in EMPTY BAG 1 BAG IV SCH ×5 (00:59→21:08)
[2018-06-09] MEDS: ASCORBIC ACID INJ 1,500 MG in SODIUM CHLORIDE 0.9% 100 ML IVPB SCH ×4 (01:05→18:25)
[2018-06-09] MEDS: IPRATROPIUM-ALBUTEROL 3 ML NEB INHALATION SCH ×6 (03:47→23:40)
[2018-06-09 04:38] LABS: Anisocytosis Slight; Basophils % (A) 0 %; Eosinophils % (A) 0 %; HCT 25.6 % (39.0-53.0); HGB 7.8 gm/dL (13.0-17.5); Hypochromasia Moderate; Lymphocytes # (A) 0.9 k/uL (1.0-4.8); Lymphocytes % (A) 3 %; MCH 27.4 pg (25.0-35.0); MCHC 30.5 g/dL (31.0-37.0); Mean Platelet Volume 7.5; Monocytes # (A) 0.8 k/uL (0-1.0); Monocytes % (A) 3 %; Neutrophils # (A) 26.3 k/uL (1.3-7.7); Neutrophils % (A) 94 %; Platelet Count 401 k/uL (150-450); RBC 2.84 m/uL (4.30-5.90); RDW 18.8 % (11.5-15.5)
[2018-06-09 04:56] LABS: ALT 43 U/L (21-72); AST 29 U/L (17-59); Albumin 2.1 g/dL (3.5-5.0); Alkaline Phosphatase 79 U/L (38-126); Anion Gap 5 mmol/L; Blood Urea Nitrogen 17 mg/dL (9-20); Calcium 8.1 mg/dL (8.4-10.2); Carbon Dioxide 32 mmol/L (22-30); Chloride 105 mmol/L (98-107); Glucose 155 mg/dL (74-99); Magnesium 1.9 mg/dL (1.6-2.3); Phosphorus 2.7 mg/dL (2.5-4.5); Potassium 3.4 mmol/L (3.5-5.1); Sodium 142 mmol/L (137-145); Total Bilirubin <0.1 mg/dL (0.2-1.3); Total Protein 5.1 g/dL (6.3-8.2)
[2018-06-09] MEDS: VANCOMYCIN 1,500 MG in SODIUM CHLORIDE 0.9% 250 ML IVPB SCH ×3 (05:02→20:56)
[2018-06-09] MEDS: HYDROCORTISONE SUCCINATE 100 MG/2 ML VIAL IV SCH ×3 (05:03→20:49)
[2018-06-09] MEDS: 1: MVI, ADULT NO.4 WITH VIT K 10 ML, THIAMINE 100 MG, FOLIC ACID 1 MG in SODIUM CHLORIDE IV SCH ×4 (05:24)
[2018-06-09 06:22] LABS: Glucose,Whole Blood 165 mg/dL (75-99)
[2018-06-09] MEDS: MAGNESIUM SULFATE-D5W PMX 1 GM in DEXTROSE/WATER 1 100ML.BAG IVPB SCH ×2 (06:23→09:56)
[2018-06-09] MEDS: POTASSIUM BICARBONATE/CIT AC 20 MEQ TABLET.EFF NG-TUBE SCH ×2 (06:40→09:56)
--- NOTE | 2018-06-09 08:04 | XR ---
EXAMINATION TYPE: XR chest 1V portable DATE OF EXAM: 06/09/2018 HISTORY: Tube placement. REFERENCE: Previous study dated 06/08/2018. FINDINGS: the patient is ET tube and NG tube remain in place unchanged in appearance. There continues be bibasilar airspace disease. Overall aeration of both lungs is improved slightly. Heart size is wi thin normal limits. There is blunting of the right CP angle. I could not exclude a small right effusi on. IMPRESSION: IMPROVED AERATION, BOTH LUNGS.
--- NOTE | 2018-06-09 08:07 | P.CRDCN ---
History of Present Illness Consult date: 06/09/18 History of present illness: This is a 52-year-old gentleman who I asked to see because of her bradycardia. Currently the patient is intubated and he is on ventilator. The patient was brought to the emergency room by family because he was found unresponsive at home. In the emergency room the patient was found to be severely hypoxic and severely acidotic. The bronchoscopy was performed for suspicious that the patient was aspirated. No indication that the patient didn't have any symptoms of chest pain or chest discomfort before that event. No previous or documented history of coronary artery disease or congestive heart failure or any cardiac arrhythmia. Currently the patient is intubated and yesterday he was on vasopressors was vasopressin. He was bradycardic at that point and the vasopressin was switched to norepinephrine. The patient has been maintaining a good blood pressure and good heart rate and currently he is off any vasopressors. No more episodes of bradycardia noted. The patient does have a past medical history significant for alcohol abuse. At this point I will obtain an echocardiogram was Doppler to assess left ventricular systolic function. Beside that no reason for any further cardiac workup. We'll continue following up with the patient very closely. Past Medical History Past Medical History: COPD, GERD/Reflux, Seizure Disorder, Syncope Additional Past Medical History / Comment(s): Severe ETOH abuse, alcohol withdrawal seizures/DTs, encephalopathy d/t alcohol, falls, thrombocytopenia, mastoiditis with surgery. History of Any Multi-Drug Resistant Organisms: None Reported Past Surgical History: Ear Surgery, Tonsillectomy Additional Past Surgical History / Comment(s): Bilateral mastoidectomies, sinus surgery and vocal cord scraping. Past Anesthesia/Blood Transfusion Reactions: No Reported Reaction Smoking Status: Current every day smoker - Past Family History Father Family Medical History: Cancer Additional Family Medical History / Comment(s): Father was a stomach cancer survivor. He of spinal stenosis at the age of 88yrs. Mother Family Medical History: Hyperlipidemia Additional Family Medical History / Comment(s): Mother is living and is 85 yrs old. Brother(s) Additional Family Medical History / Comment(s): Bipolar, schizoprenia Medications and Allergies Home Medications Medication Instructions Recorded Confirmed Type Albuterol Inhaler [Ventolin Hfa 1 - 2 puff INHALATION RT-Q4H PRN 06/05/18 History Inhaler] Ferrous Sulfate [Feosol] 325 mg PO DAILY 06/05/18 06/05/18 History Ibuprofen [Motrin] 800 mg PO TID PRN 06/05/18 06/05/18 History Omeprazole 20 mg PO DAILY 06/05/18 06/05/18 History Allergies Allergy/AdvReac Type Severity Reaction Status Date / Time No Known Allergies Allergy Verified 06/05/18 14:07 Physical Exam Vitals: Vital Signs Temp Pulse Resp BP Pulse Ox 06/09/18 07:00 85 20 113/70 96 06/09/18 06:30 94 20 113/70 94 L 06/09/18 06:00 88 20 110/65 97 06/09/18 05:30 99 20 110/65 96 06/09/18 05:00 101 H 20 108/68 95 06/09/18 04:30 108 H 20 104/61 93 L 06/09/18 04:14 105 H 06/09/18 04:00 98.3 F 102 H 20 113/68 98 06/09/18 03:54 104 H 06/09/18 03:30 109 H 20 110/65 94 L 06/09/18 03:00 100 20 114/65 95 06/09/18 02:30 104 H 20 111/63 96 06/09/18 02:00 101 H 20 114/65 95 06/09/18 01:30 106 H 20 115/65 94 L 06/09/18 01:00 106 H 20 105/61 92 L 06/09/18 00:30 111 H 20 111/64 91 L 06/09/18 00:07 92 06/09/18 00:00 98.2 F 89 20 107/65 95 06/08/18 23:38 85 06/08/18 23:30 83 20 112/66 95 06/08/18 23:00 86 20 109/66 94 L 06/08/18 22:30 100 20 115/53 91 L 06/08/18 22:00 89 20 113/67 95 06/08/18 21:30 105 H 20 107/64 96 06/08/18 21:04 104 H 20 103/62 96 06/08/18 21:00 98.1 F 109 H 20 103/62 98 06/08/18 20:32 65 07/14/18 20:19 62 06/08/18 19:00 85 23 123/76 95 18 18:30 86 21 119/67 99 06/08/18 18:00 98.6 F 61 20 118/68 99 18 17:30 67 20 119/66 97 18 17:00 67 22 121/71 97 18 16:30 68 22 115/63 96 06/08/18 16:00 98.5 F 69 21 96/57 95 06/08/18 15:59 85 18 15:44 90 18 15:30 72 20 99/59 94 L 06/08/18 15:00 83 20 101/56 94 L 06/08/18 14:30 97 23 100/60 94 L 06/08/18 14:00 87 21 115/72 93 L 06/08/18 13:30 57 L 20 139/77 100 06/08/18 13:00 62 22 111/68 98 06/08/18 12:30 80 29 H 108/66 99 06/08/18 12:00 98 F 60 24 109/64 98 06/08/18 11:35 51 L 06/08/18 11:30 56 L 22 102/61 100 06/08/18 11:18 51 L 06/08/18 11:00 53 L 21 106/68 99 06/08/18 10:30 66 20 109/67 98 06/08/18 10:00 73 20 101/65 97 06/08/18 09:30 80 24 98/61 95 06/08/18 09:00 96 22 106/71 97 06/08/18 08:30 62 21 101/69 99 06/08/18 08:15 53 L Intake and Output 06/08/18 06/09/18 06/09/18 22:59 06:59 14:59 Intake Total 4137.328 2310.167 273 Output Total 1035 576 150 Balance 3102.328 1734.167 123 Intake: IV 2124 1374 203 0.9 at KVO 500 0.9 for pressure bag 24 24 3 Ampicillin-Sulbactam 3 gm 100 200 In Sodium Chloride 0.9% 100 ml @ 100 mls/hr IVPB Q6HR [facility] Rx#:[id number] Ascorbic Acid Inj 1,500 100 100 mg In Sodium Chloride 0.9 % 100 ml @ 103 mls/hr IVPB Q6H [facility] Rx#: [id number] Magnesium Sulfate-D5w Pmx 200 1 gm In Dextrose/Water 1 100ml.bag @ 100 mls/hr IVPB Q1H [facility] Rx#: [id number] Potassium Chloride 20 meq 200 In Water For Injection 1 100ml.bag @ 50 mls/hr IVPB Q2H [facility] Rx#: [id number] Sodium Chloride 0.9% 1, 300 800 100 000 ml @ 100 mls/hr IV . BY DURATION [facility] Rx#: [id number] Thiamine 200 mg In Sodium 200 100 Chloride 0.9% 100 ml @ 200 mls/hr IVPB Q12HR [facility] Rx#:[id number] Vancomycin 1,500 mg In 500 250 Sodium Chloride 0.9% 250 ml @ 125 mls/hr IVPB Q8H [facility] Rx#:[id number] Intake, IV Titration 1183.328 176.167 Amount Potassium Chloride 20 meq 100 In Water For Injection 1 100ml.bag @ 50 mls/hr IVPB ONCE [facility] Rx#: [id number] Propofol 1,000 mg In 83.328 176.167 Empty Bag 1 bag @ Titrate IV .Q0M [facility] Rx#: [id number] Sodium Chloride 0.9% 1, 1000 000 ml @ 100 mls/hr IV . BY DURATION [facility] Rx#: [id number] Tube Feeding 770 700 70 Other 60 60 Output: Urine 1035 575 150 Stool 1 Other: Voiding Method Indwelling Catheter Indwelling Catheter # Bowel Movements 1 Weight 91.7 kg ABP, PAP, CO, CI - Last 8 Hours Arterial Blood Pressure 120/60 Arterial Blood Pressure 119/58 Arterial Blood Pressure 124/58 Arterial Blood Pressure 128/58 Arterial Blood Pressure 119/56 Arterial Blood Pressure 123/52 Arterial Blood Pressure 115/53 Arterial Blood Pressure 111/53 Arterial Blood Pressure 121/52 Arterial Blood Pressure 126/52 Arterial Blood Pressure 139/57 Arterial Blood Pressure 130/55 Arterial Blood Pressure 122/47 Arterial Blood Pressure 124/52 - Constitutional General appearance: no acute distress - Respiratory Respiratory: bilateral: CTA - Cardiovascular Rhythm: regular Heart sounds: normal: S1, S2 Results 06/09/18 04:20 06/09/18 04:20 Cardiac Enzymes 06/09/18 Range/Units 04:20 AST 29 (17-59) U/L CBC 06/09/18 Range/Units 04:20 WBC 28.0 H* (3.8-10.6) k/uL RBC 2.84 L (4.30-5.90) m/uL Hgb 7.8 L (13.0-17.5) gm/dL Hct 25.6 L (39.0-53.0) % Plt Count 401 (150-450) k/uL Comprehensive Metabolic Panel 06/08/18 06/09/18 Range/Units 14:00 04:20 Sodium 142 (137-145) mmol/L Potassium 3.7 3.4 L (3.5-5.1) mmol/L Chloride 105 (98-107) mmol/L Carbon Dioxide 32 H (22-30) mmol/L BUN 17 (9-20) mg/dL Creatinine 0.40 L (0.66-1.25) mg/dL Glucose 155 H (74-99) mg/dL Calcium 8.1 L (8.4-10.2) mg/dL AST 29 (17-59) U/L ALT 43 (21-72) U/L Alkaline Phosphatase 79 (38-126) U/L Total Protein 5.1 L (6.3-8.2) g/dL Albumin 2.1 L (3.5-5.0) g/dL Current Medications Generic Name Dose Route Start Last Admin Trade Name Freq PRN Reason Stop Dose Admin Albuterol/Ipratropium 3 ml 06/05/18 20:00 06/09/18 03:47 Duoneb 0.5 Mg-3 Mg/3 Ml Soln INHALATION 3 ml RT-Q4H [facility] Administration Albuterol/Ipratropium 3 ml 06/05/18 19:25 Duoneb 0.5 Mg-3 Mg/3 Ml Soln INHALATION RT-Q2H PRN Shortness Of Breath Or Wheezing Budesonide 0.5 mg 06/05/18 20:00 06/08/18 20:19 Pulmicort INHALATION 0.5 mg RT-BID [facility] Administration Chlorhexidine Gluconate 15 ml 06/05/18 21:00 06/08/18 20:40 Peridex MUCOUS MEM 15 ml BID [facility] Administration Heparin Sodium (Porcine) 5,000 unit 06/05/18 20:00 06/09/18 00:26 Heparin SQ 5,000 unit Q8HR [facility] Administration Hydrocortisone Sodium Succinate 50 mg 06/07/18 16:00 06/09/18 05:03 Solu-Cortef IV 06/11/18 16:01 50 mg Q6H [facility] Administration Propofol 1,000 mg/ IV Solution 100 mls @ 0 mls/hr 06/05/18 17:45 06/09/18 04: 53 IV 40 mcg/kg/min .Q0M [facility] 19.53 mls/hr Administration Protocol Titrate Norepinephrine Bitartrate 4 mg 250 mls @ 0 mls/hr 06/05/18 18:45 06/08/18 12: 00 / Dextrose/Water IV 8 mcg/min .Q0M [facility] 30 mls/hr Administration Protocol Titrate Parenteral Vitamin Supplement 1,011.2 mls @ 100 mls/hr 06/05/18 20:00 05:24 10 ml/ Thiamine HCl 100 mg/ IV Not Given Folic Acid 1 mg/ Sodium .BY DURATION [facility] Chloride Sodium Chloride 1,000 mls @ 100 mls/hr 06/05/18 20:00 06/08/18 15:44 Saline 0.9% IV 100 mls/hr .BY DURATION [facility] Administration Ampicillin Sodium/Sulbactam 100 mls @ 100 mls/hr 06/06/18 14:00 06/09/18 05: 46 Sodium 3 gm/ Sodium Chloride IVPB 100 mls/hr Q6HR [facility] Administration Vancomycin HCl 1,500 mg/ 250 mls @ 125 mls/hr 06/07/18 12:00 06/09/18 05:02 Sodium Chloride IVPB 125 mls/hr Q8H [facility] Administration Thiamine HCl 200 mg/ Sodium 102 mls @ 200 mls/hr 06/07/18 14:45 06/08/18 20: 40 Chloride IVPB 06/11/18 14:46 200 mls/hr Q12HR [facility] Administration Ascorbic Acid 1,500 mg/ Sodium 103 mls @ 103 mls/hr 06/08/18 18:00 06/09/18 05:52 Chloride IVPB 103 mls/hr Q6H [facility] Administration Ferric Sodium Gluconate 125 mg 110 mls @ 100 mls/hr 06/08/18 17:00 06/08/18 16:58 / Sodium Chloride IVPB 100 mls/hr DAILY [facility] Administration Insulin Aspart 0 unit 06/06/18 00:00 06/09/18 06:24 Novolog SQ 1 unit Q6H [facility] Administration Protocol Insulin Aspart 2 unit 06/06/18 18:00 06/09/18 06:24 Novolog SQ 2 unit Q6H [facility] Administration Lorazepam 1 mg 06/05/18 19:25 06/07/18 14:05 Ativan IV 1 mg Q2HR PRN Administration CIWA 8 or 9 Lorazepam 1 mg 06/05/18 19:25 06/07/18 05:01 Ativan IV 1 mg Q1HR PRN Administration CIWA 10 to 15 Miscellaneous Information 1 each 06/06/18 07:24 Magnesium Per Protocol MISCELLANE DAILY PRN Per Protocol Protocol Miscellaneous Information 1 each 06/08/18 15:33 Magnesium Per Protocol MISCELLANE DAILY PRN Per Protocol Protocol Miscellaneous Information 1 each 06/08/18 15:33 Potassium Per Protocol MISCELLANE DAILY PRN Per Protocol Protocol Naloxone HCl 0.2 mg 06/05/18 19:25 Narcan IV Q2M PRN Opioid Reversal Pantoprazole Sodium 40 mg 06/05/18 19:30 06/08/18 09:02 Protonix IV 40 mg DAILY [facility] Administration Intake and Output 06/08/18 06/09/18 06/09/18 22:59 06:59 14:59 Intake Total 4137.328 2310.167 273 Output Total 1035 576 150 Balance 3102.328 1734.167 123 Intake: IV 2124 1374 203 0.9 at KVO 500 0.9 for pressure bag 24 24 3 Ampicillin-Sulbactam 3 gm 100 200 In Sodium Chloride 0.9% 100 ml @ 100 mls/hr IVPB Q6HR [facility] Rx#:[id number] Ascorbic Acid Inj 1,500 100 100 mg In Sodium Chloride 0.9 % 100 ml @ 103 mls/hr IVPB Q6H [facility] Rx#: [id number] Magnesium Sulfate-D5w Pmx 200 1 gm In Dextrose/Water 1 100ml.bag @ 100 mls/hr IVPB Q1H [facility] Rx#: [id number] Potassium Chloride 20 meq 200 In Water For Injection 1 100ml.bag @ 50 mls/hr IVPB Q2H [facility] Rx#: [id number] Sodium Chloride 0.9% 1, 300 800 100 000 ml @ 100 mls/hr IV . BY DURATION [facility] Rx#: [id number] Thiamine 200 mg In Sodium 200 100 Chloride 0.9% 100 ml @ 200 mls/hr IVPB Q12HR [facility] Rx#:[id number] Vancomycin 1,500 mg In 500 250 Sodium Chloride 0.9% 250 ml @ 125 mls/hr IVPB Q8H [facility] Rx#:[id number] Intake, IV Titration 1183.328 176.167 Amount Potassium Chloride 20 meq 100 In Water For Injection 1 100ml.bag @ 50 mls/hr IVPB ONCE [facility] Rx#: [id number] Propofol 1,000 mg In 83.328 176.167 Empty Bag 1 bag @ Titrate IV .Q0M [facility] Rx#: [id number] Sodium Chloride 0.9% 1, 1000 000 ml @ 100 mls/hr IV . BY DURATION [facility] Rx#: [id number] Tube Feeding 770 700 70 Other 60 60 Output: Urine 1035 575 150 Stool 1 Other: Voiding Method Indwelling Catheter Indwelling Catheter # Bowel Movements 1 Weight 91.7 kg 06/09/18 04:20 06/09/18 04:20 Assessment and Plan Assessment: Assessment #1 acute hypoxic respiratory failure #2 change in mental status #3 brief episode of bradycardia which has improved #4 multiple comorbid conditions you Plan #1 the patient currently is hemodynamically stable. He has been maintaining good blood pressure and good heart rate. #2 we'll obtain an echocardiogram was Doppler #3 follow-up with the patient. Thank you for allowing us participate in the patient's care
[2018-06-09] MEDS: BUDESONIDE 0.5 MG/2 ML NEBU INHALATION SCH ×2 (08:48→20:18)
[2018-06-09] MEDS: CHLORHEXIDINE GLUCONATE 15 ML CUP MUCOUS MEM SCH ×2 (09:57→20:49)
[2018-06-09] MEDS: PANTOPRAZOLE 40 MG/10 ML VIAL IV SCH (09:57)
[2018-06-09] MEDS: SODIUM FERRIC GLUCONAT-SUCROSE 125 MG in SODIUM CHLORIDE 0.9% 100 ML IVPB SCH (10:00)
--- NOTE | 2018-06-09 10:51 | P.PN ---
Subjective Progress Note Date: 06/09/18 (Critical care time spent 45 minutes) Principal diagnosis: Severe hypotension, bradycardia, electrolyte imbalance with hypokalemia and hypomagnesemia, altered mental status encephalopathy, chronic alcohol liver disease, chronic alcoholism, history of seizure disorder 06/09/2018, patient seen eval examined during the rounds successfully able to continue work her from the vasopressin to review fed and subsequently levo fed has been taken off now patient remains on full respirator support currently patient is on assist control rate of 20 breathing 25 tidal volume of the 550 with the 10 of PEEP and 55% oxygen saturation is 95-96% labs reviewed medications reviewed radiographic studies reviewed as well, white cell count is down to 28,000 from 38,000 yesterday hemoglobin and hematocrit remains stable, potassium is slightly running on the lower side renal functions are stable sugars are slightly improved as well, the chest x-ray showed slight improvement in infiltrate, patient has been on tube feed 70 mL an hour tolerating very well no significant as well as seen no significant diarrhea has been seen today, central triple-lumen catheter as well as a line sites are intact, patient is a relatively more awake moving upper extremity some weakness in the lower extremity has been present we'll continue to monitor clinical course closely currently patient is not ready for weaning 06/08/2018, patient seen and evaluated examined care plan discussed with the primary service as well as the family present at bedside, patient has been having issues associated with significant bradycardia heart rate dropped down into the 40s, I have discontinued the vasopressin and start patient on levo fed drip he does have a central line in the right internal jugular area however he does not have a line which she will be needing for close hemodynamic monitoring , patient remains on 8 mics of levo fed drip as well as propofol of 40 mics, current vent settings include assist control rate of 20 breathing about 21 tidal volume is 550, PEEP is 10, FiO2 is 55%, today's chest x-ray laboratory data reviewed patient has been replaced with magnesium as well as potassium and repeat level continue show a low level was going to repeat it again and put 20 mg of KCl into the IV fluids, patient has a right lower lobe consolidation likely right lower lobe aspiration pneumonia as well as small effusion was patchy infiltrate on the left side as well this seems to be present on the left upper lobe as well as left lower lobe with a small effusion on the left side as well, labs are reviewed the white cell count remains elevated 38,000 not much change from yesterday, hemoglobin appears to be slightly trending down, patient has been noted to have significant degree of diarrhea the lactulose is been discontinued, stool for C. diff as well as checked which is negative diarrhea appears to be related to multifactorial processes including to feed as well as lactulose, arterial blood gases revealed hypercapnia appears to be related to severe pneumonia and COPD, we'll start tapering down the hydrocortisone and bring it to 50 mg every 12, borderline hyperglycemia is present patient is adequately covered with sliding scale insulin Review of the data revealed that this is a 52-year-old gentleman presented to emergency room, patient was found unresponsive and EMS was called. The Patient' s O2 saturation was 50%. He had minimal improvement on nonrebreather. The patient was subsequently intubated in the emergency room. The patient was found to have an elevated lactic acid of 12.6. He was profoundly acidotic with a pH of less than 7.0. The patient was hypotensive and started on Levophed. He is currently on 6 mcg/m of Levophed. He had large amount of green and secretions from the ET tube. It is assumed the patient aspirated. The patient is on 100% FiO2 and PEEP of 8. Bronchoscopy was performed to clear secretions. The patient has been given 2 L of IV fluids in the emergency room. Review of the data also revealed that He has had multiple admissions for alcohol intoxication and subsequently go through withdrawals. The patient has refused alcohol rehab in the past. The patient has required BiPAP in the past. He does drink about a pound of vodka daily. Objective - Vital Signs Vital signs: Vital Signs Temp 98.3 F 06/09/18 04:00 Pulse 100 06/09/18 09:03 Resp 20 06/09/18 07:00 BP 113/70 06/09/18 07:00 Pulse Ox 96 06/09/18 07:00 Intake & Output 06/08/18 06/09/18 06/09/18 18:59 06:59 18:59 Intake Total 5215.260 4222.167 373 Output Total 1071 1126 150 Balance 4144.260 3096.167 223 Weight 91.7 kg Intake: IV 2736 2736 203 0.9 at KVO 500 100 0.9 for pressure bag 36 36 3 Ampicillin-Sulbactam 3 gm 200 200 In Sodium Chloride 0.9% 100 ml @ 100 mls/hr IVPB Q6HR [facility] Rx#:[id number] Ascorbic Acid Inj 1,500 100 200 mg In Sodium Chloride 0.9 % 100 ml @ 103 mls/hr IVPB Q6H [facility] Rx#: [id number] Magnesium Sulfate-D5w Pmx 200 200 1 gm In Dextrose/Water 1 100ml.bag @ 100 mls/hr IVPB Q1H [facility] Rx#: [id number] Potassium Chloride 20 meq 200 In Water For Injection 1 100ml.bag @ 50 mls/hr IVPB Q2H [facility] Rx#: [id number] Sodium Chloride 0.9% 1, 1100 100 000 ml @ 100 mls/hr IV . BY DURATION [facility] Rx#: [id number] Sodium Chloride 0.9% 1, 100 000 ml @ 100 mls/hr IV . Q10H [facility] Rx#:[id number] Sodium Chloride 0.9% 500 1000 ml @ 150 mls/hr IV . Q3H20M [facility] Rx#:[id number] Thiamine 200 mg In Sodium 100 200 100 Chloride 0.9% 100 ml @ 200 mls/hr IVPB Q12HR [facility] Rx#:[id number] Vancomycin 1,500 mg In 500 500 Sodium Chloride 0.9% 250 ml @ 125 mls/hr IVPB Q8H [facility] Rx#:[id number] Intake, IV Titration 1269.260 276.167 100 Amount Potassium Chloride 20 meq 100 In Water For Injection 1 100ml.bag @ 50 mls/hr IVPB ONCE [facility] Rx#: [id number] Propofol 1,000 mg In 269.260 176.167 100 Empty Bag 1 bag @ Titrate IV .Q0M [facility] Rx#: [id number] Sodium Chloride 0.9% 1, 1000 000 ml @ 100 mls/hr IV . BY DURATION [facility] Rx#: [id number] Tube Feeding 1120 1120 70 Other 90 90 Output: Urine 1070 1125 150 Stool 1 1 Other: Voiding Method Indwelling Catheter Indwelling Catheter # Bowel Movements 1 ABP, PAP, CO, CI - Last Documented Arterial Blood Pressure 120/60 - Exam Gen.: Patient is sedated and intubated on full ventilator support, he does follow commands intermittently HEENT is unremarkable Neck is supple without any lymphadenopathy the triple-lumen site on the right internal jugular area is stable no obvious right heme edema noted Cardiovascular: Tachycardic, regular rate and rhythm, S1/S2 Lungs: Coarse breath sounds bilaterally, with bronchial breath sound at the left base Abdomen: Soft nontender nondistended positive bowel sounds, green bile secreations from OG tube Extremities: No edema Neuro: Unable to assess being on on sedation - Labs CBC & Chem 7: 06/09/18 04:20 06/09/18 04:20 Labs: Abnormal Lab Results - Last 24 Hours (Table) 06/08/18 06/08/18 06/08/18 Range/Units 12:11 14:14 17:57 WBC (3.8-10.6) k/uL RBC (4.30-5.90) m/uL Hgb (13.0-17.5) gm/dL Hct (39.0-53.0) % MCHC (31.0-37.0) g/dL RDW (11.5-15.5) % Neutrophils # (1.3-7.7) k/uL Lymphocytes # (1.0-4.8) k/uL Potassium (3.5-5.1) mmol/L Carbon Dioxide (22-30) mmol/L Creatinine (0.66-1.25) mg/dL Glucose (74-99) mg/dL POC Glucose (mg/dL) 212 H 154 H (75-99) mg/dL Calcium (8.4-10.2) mg/dL Total Bilirubin (0.2-1.3) mg/dL Total Protein (6.3-8.2) g/dL Albumin (3.5-5.0) g/dL CSF Glucose 141 H (40-70) mg/dL 06/08/18 06/09/18 06/09/18 Range/Units 23:53 04:20 04:20 WBC 28.0 H* (3.8-10.6) k/uL RBC 2.84 L (4.30-5.90) m/uL Hgb 7.8 L (13.0-17.5) gm/dL Hct 25.6 L (39.0-53.0) % MCHC 30.5 L (31.0-37.0) g/dL RDW 18.8 H (11.5-15.5) % Neutrophils # 26.3 H (1.3-7.7) k/uL Lymphocytes # 0.9 L (1.0-4.8) k/uL Potassium 3.4 L (3.5-5.1) mmol/L Carbon Dioxide 32 H (22-30) mmol/L Creatinine 0.40 L (0.66-1.25) mg/dL Glucose 155 H (74-99) mg/dL POC Glucose (mg/dL) 176 H (75-99) mg/dL Calcium 8.1 L (8.4-10.2) mg/dL Total Bilirubin <0.1 L (0.2-1.3) mg/dL Total Protein 5.1 L (6.3-8.2) g/dL Albumin 2.1 L (3.5-5.0) g/dL CSF Glucose (40-70) mg/dL 06/09/18 Range/Units 06:21 WBC (3.8-10.6) k/uL RBC (4.30-5.90) m/uL Hgb (13.0-17.5) gm/dL Hct (39.0-53.0) % MCHC (31.0-37.0) g/dL RDW (11.5-15.5) % Neutrophils # (1.3-7.7) k/uL Lymphocytes # (1.0-4.8) k/uL Potassium (3.5-5.1) mmol/L Carbon Dioxide (22-30) mmol/L Creatinine (0.66-1.25) mg/dL Glucose (74-99) mg/dL POC Glucose (mg/dL) 165 H (75-99) mg/dL Calcium (8.4-10.2) mg/dL Total Bilirubin (0.2-1.3) mg/dL Total Protein (6.3-8.2) g/dL Albumin (3.5-5.0) g/dL CSF Glucose (40-70) mg/dL Microbiology - Last 24 Hours (Table) 06/08/18 14:14 [facility] Preparation - Final Cerebral Spinal Fluid 06/08/18 14:14 CSF Gram Stain - Preliminary Cerebral Spinal Fluid CSF Culture - Preliminary 06/05/18 12:10 Blood Culture - Preliminary Blood No Growth after 72 hours 06/05/18 19:05 Gram Stain - Final Bronchial Washings - Right Bronchial Washings Culture - Final Assessment and Plan Assessment: Acute hypoxic and hypercapnic respiratory failure Multi lobar Bilateral pneumonia likely aspiration related with right lower lobe consolidation and left-sided patchy infiltrate lower lobe as well as upper lobe Bilateral small pleural effusion Severe electrolyte imbalance with hypokalemia as well as hypomagnesemia being repleted Aspiration pneumonia Severe bradycardia and hypotension patient is been taken off of vasopressin in view fed is being started Likely anemia of chronic disease Septic shock Leukocytosis Anemia, normochromic, normocytic History of DVTs and seizure disorder Hyponatremia Nicotine dependence Hyperglycemia Alcohol abuse Plan: Will lower PEEP to 5 As noted above electrolyte replacement Maintain on current ventilator setting Lower down the steroids Stool for C. difficile checked Electrolytes repleted Add potassium to the IV fluids Levophed to maintain map greater than 65, systolic blood pressure greater than 90 Placement of arterial line and hemodynamic monitoring Broad-spectrum antibiotics Monitor urine output and renal function Insulin sliding scale and Accu-Cheks Duo nebs and Pulmicort CIWA protocol Lactulose being discontinued, repeat ammonia in AM Propofol for sedation Maintenance IV fluids at 100 mL per hour GI and DVT prophylaxis Consult PT and OT for early mobility Tube feeds per dietary recommendations A.m. chest x-ray and ABG Thiamine, folate, multivitamin Seizure and aspiration precautions Patient's mother at bedside is updated to patient's condition, plan of care, procedure explained to the patient's mother
[2018-06-09 11:09] LABS: Glucose,Whole Blood 163 mg/dL (75-99)
[2018-06-09] MEDS: THIAMINE 200 MG in SODIUM CHLORIDE 0.9% 100 ML IVPB SCH ×2 (11:45→20:49)
[2018-06-09] MEDS: LORazepam 2 MG/ML INJ IV PRN (11:49)
[2018-06-09 17:32] LABS: Glucose,Whole Blood 167 mg/dL (75-99)
--- NOTE | 2018-06-09 23:24 | P.PN ---
Subjective Progress Note Date: 06/09/18 This patient is a 52-year-old male who is seen today in the intensive care unit for altered mental status and obtundation. Patient remains intubated on the ventilator with no significant change in his overall neurological status from yesterday. It was recommended the patient to undergo a lumbar puncture for further evaluation of sepsis. Lumbar puncture was completed today by anesthesia. Results are pending. Patient continues on his CPAP protocol. He is receiving Unasyn and vancomycin for antibiotic coverage. Infectious disease is also following. As noted his spinal tap was completed today however results are pending at this time. His C. difficile study came back negative. He remains intubated and obtunded. He is not having any signs of spontaneous movements. He did undergo routine EEG today which is reviewed and reveals severe slowing with background activity of 4-5 Hz with no epileptiform discharges. We reviewed all of these test results today in detail with the patient's mother who was at bedside in the intensive care unit. She is aware of his very poor prognosis thus far. She is wanting him to be considered for inpatient rehab if he is able to show improvement down the line. The patient has a history of alcohol is a man has had difficulty with abstinence in the past. According to his mother he has not sought out appropriate drug rehabilitation in the past. We will continue close monitoring for the patient in the ICU. The patient has been showing slight improvement today in his neurological exam. He is withdrawing to sternal rub but is not opening his eyes. He underwent lumbar puncture the results of which came back negative for any signs of GROOVING LATHE TENDER infection. He continues on a CIWA protocol but is not required much in the way of Ativan. He is not requiring Levophed at this time. He is only on 40 mics a Diprivan at this time. As noted his overall prognosis at this time remains very guarded. Patient's mother is aware of his guarded condition at this time. Overall the patient seems to be relatively stable but may require a follow-up EEG early this next week for comparison depending on his progress. His overall condition and prognosis at this time remains very guarded. Objective - Vital Signs Vital signs: Vital Signs Temp 98.1 F 06/09/18 12:00 Pulse 80 06/09/18 15:34 Resp 20 06/09/18 14:00 BP 119/71 06/09/18 14:00 Pulse Ox 96 06/09/18 14:00 Intake & Output 06/08/18 06/09/18 06/09/18 18:59 06:59 18:59 Intake Total 5215.260 4222.167 2117.976 Output Total 1071 1126 1054 Balance 4144.260 3096.167 1063.976 Weight 91.7 kg Intake: IV 2736 2736 1295 0.9 at KVO 500 100 0.9 for pressure bag 36 36 45 Ampicillin-Sulbactam 3 gm 200 200 100 In Sodium Chloride 0.9% 100 ml @ 100 mls/hr IVPB Q6HR [facility] Rx#:[id number] Ascorbic Acid Inj 1,500 100 200 mg In Sodium Chloride 0.9 % 100 ml @ 103 mls/hr IVPB Q6H [facility] Rx#: [id number] Magnesium Sulfate-D5w Pmx 200 200 1 gm In Dextrose/Water 1 100ml.bag @ 100 mls/hr IVPB Q1H [facility] Rx#: [id number] Potassium Chloride 20 meq 200 In Water For Injection 1 100ml.bag @ 50 mls/hr IVPB Q2H [facility] Rx#: [id number] Sodium Chloride 0.9% 1, 1100 200 000 ml @ 100 mls/hr IV . BY DURATION [facility] Rx#: [id number] Sodium Chloride 0.9% 1, 100 000 ml @ 100 mls/hr IV . Q10H [facility] Rx#:[id number] Sodium Chloride 0.9% 500 1000 600 ml @ 150 mls/hr IV . Q3H20M [facility] Rx#:[id number] Thiamine 200 mg In Sodium 100 200 100 Chloride 0.9% 100 ml @ 200 mls/hr IVPB Q12HR [facility] Rx#:[id number] Vancomycin 1,500 mg In 500 500 250 Sodium Chloride 0.9% 250 ml @ 125 mls/hr IVPB Q8H [facility] Rx#:[id number] Intake, IV Titration 1269.260 276.167 197.976 Amount Potassium Chloride 20 meq 100 In Water For Injection 1 100ml.bag @ 50 mls/hr IVPB ONCE [facility] Rx#: [id number] Propofol 1,000 mg In 269.260 176.167 197.976 Empty Bag 1 bag @ Titrate IV .Q0M [facility] Rx#: [id number] Sodium Chloride 0.9% 1, 1000 000 ml @ 100 mls/hr IV . BY DURATION [facility] Rx#: [id number] Tube Feeding 1120 1120 565 Other 90 90 60 Output: Urine 1070 1125 1050 Stool 1 1 4 Other: Voiding Method Indwelling Catheter Indwelling Catheter Indwelling Catheter # Bowel Movements 1 ABP, PAP, CO, CI - Last Documented Arterial Blood Pressure 125/59 - Exam Physical examination: PHYSICAL EXAMINATION: Patient is intubated on the ventilator and remains unresponsive in the intensive care unit. VITAL SIGNS: Blood pressure is [129/73]. Heart rate is [81]. Respiration is [20] . Temperature is [98.4]. HEENT: Head is atraumatic, neck is supple, there were no carotid bruits. CHEST: Lungs are clear to auscultation and percussion. CARDIAC: S1, S2 normal rate and rhythm. There is no murmur. ABDOMEN: Soft and nontender. Bowel sounds are present. EXTREMITIES: There is no pedal edema. Peripheral pulses are present. Neurological examination: Patient's neurological examination unchanged from yesterday. Patient's neurological status has not changed from yesterday. The patient does withdraw to painful stimuli today. He is attempting to open his eyes. His remaining neurological examination remains unchanged. - Labs CBC & Chem 7: 06/09/18 04:20 06/09/18 04:20 Labs: Abnormal Lab Results - Last 24 Hours (Table) 06/08/18 06/08/18 06/08/18 Range/Units 14:14 17:57 23:53 WBC (3.8-10.6) k/uL RBC (4.30-5.90) m/uL Hgb (13.0-17.5) gm/dL Hct (39.0-53.0) % MCHC (31.0-37.0) g/dL RDW (11.5-15.5) % Neutrophils # (1.3-7.7) k/uL Lymphocytes # (1.0-4.8) k/uL Potassium (3.5-5.1) mmol/L Carbon Dioxide (22-30) mmol/L Creatinine (0.66-1.25) mg/dL Glucose (74-99) mg/dL POC Glucose (mg/dL) 154 H 176 H (75-99) mg/dL Calcium (8.4-10.2) mg/dL Total Bilirubin (0.2-1.3) mg/dL Total Protein (6.3-8.2) g/dL Albumin (3.5-5.0) g/dL CSF Glucose 141 H (40-70) mg/dL 06/09/18 06/09/18 06/09/18 Range/Units 04:20 04:20 06:21 WBC 28.0 H* (3.8-10.6) k/uL RBC 2.84 L (4.30-5.90) m/uL Hgb 7.8 L (13.0-17.5) gm/dL Hct 25.6 L (39.0-53.0) % MCHC 30.5 L (31.0-37.0) g/dL RDW 18.8 H (11.5-15.5) % Neutrophils # 26.3 H (1.3-7.7) k/uL Lymphocytes # 0.9 L (1.0-4.8) k/uL Potassium 3.4 L (3.5-5.1) mmol/L Carbon Dioxide 32 H (22-30) mmol/L Creatinine 0.40 L (0.66-1.25) mg/dL Glucose 155 H (74-99) mg/dL POC Glucose (mg/dL) 165 H (75-99) mg/dL Calcium 8.1 L (8.4-10.2) mg/dL Total Bilirubin <0.1 L (0.2-1.3) mg/dL Total Protein 5.1 L (6.3-8.2) g/dL Albumin 2.1 L (3.5-5.0) g/dL CSF Glucose (40-70) mg/dL 06/09/18 Range/Units 11:08 WBC (3.8-10.6) k/uL RBC (4.30-5.90) m/uL Hgb (13.0-17.5) gm/dL Hct (39.0-53.0) % MCHC (31.0-37.0) g/dL RDW (11.5-15.5) % Neutrophils # (1.3-7.7) k/uL Lymphocytes # (1.0-4.8) k/uL Potassium (3.5-5.1) mmol/L Carbon Dioxide (22-30) mmol/L Creatinine (0.66-1.25) mg/dL Glucose (74-99) mg/dL POC Glucose (mg/dL) 163 H (75-99) mg/dL Calcium (8.4-10.2) mg/dL Total Bilirubin (0.2-1.3) mg/dL Total Protein (6.3-8.2) g/dL Albumin (3.5-5.0) g/dL CSF Glucose (40-70) mg/dL Microbiology - Last 24 Hours (Table) 06/05/18 12:10 Blood Culture - Preliminary Blood No Growth after 96 hours 06/08/18 14:14 [facility] Preparation - Final Cerebral Spinal Fluid 06/08/18 14:14 CSF Gram Stain - Preliminary Cerebral Spinal Fluid CSF Culture - Preliminary Assessment and Plan (1) Acute metabolic encephalopathy Current Visit: Yes Status: Acute Code(s): G93.41 - METABOLIC ENCEPHALOPATHY SNOMED Code(s): 82834244 (2) Respiratory failure Current Visit: Yes Status: Acute Code(s): J96.90 - RESPIRATORY FAILURE, UNSP , UNSP W HYPOXIA OR HYPERCAPNIA SNOMED Code(s): 161834501 (3) Sepsis Current Visit: Yes Status: Acute Code(s): A41.9 - SEPSIS, UNSPECIFIED ORGANISM SNOMED Code(s): 73094606 (4) Alcohol dependence with withdrawal Current Visit: No Status: Acute Code(s): F10.239 - ALCOHOL DEPENDENCE WITH WITHDRAWAL, UNSPECIFIED SNOMED Code(s): 29708324 (5) Seizure disorder Current Visit: No Status: Acute Code(s): G40.909 - EPILEPSY, UNSP, NOT INTRACTABLE, WITHOUT STATUS EPILEPTICUS SNOMED Code(s): 091025065 Plan: This patient is a 52-year-old male who was evaluated today in the intensive care unit. He remains intubated on the ventilator and is unresponsive. He underwent lumbar puncture the results of which came back negative for any signs of GROOVING LATHE TENDER infection. He remains intubated on Diprivan drip at this time. He is to continue on a CIWA protocol for history of alcohol withdrawal past. He is showing slight improvement with some response to stimulation today in the ICU. His overall prognosis at this time remains very guarded. We will consider a follow-up EEG early this next week. We will continue to monitor his progress closely in the ICU. His overall prognosis at this time remains very guarded.
--- NOTE | 2018-06-09 23:24 | PN ---
PROGRESS NOTE SUBJECTIVE: 52-year-old white male remains on the ventilator at this time. Has severe hypertension, bradycardia, hypokalemia, hypomagnesemia, acute encephalopathy and fatty liver disease, alcoholism, seizure disorder, trying to wean off the vasopressin, Levophed, ABGs. 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 White count down to 28,000, hemoglobin and hematocrit stabilizing. Potassium is slightly on the lower side. Cardiovascular S1, S2. Lungs are clear. GI is soft. Hematology negative Homans. Psych fair mood and affect. Vascular: Normal dorsalis pedis, posterior tibial, radial pulse. Psych: Resting comfortably on vent. Prognosis extremely guarded. ICU time 30 minutes. MMODL / IJN: [id number] /
[2018-06-10 00:06] LABS: Glucose,Whole Blood 150 mg/dL (75-99)
[2018-06-10] MEDS: AMPICILLIN-SULBACTAM 3 GM in SODIUM CHLORIDE 0.9% 100 ML IVPB SCH ×4 (00:15→18:07)
[2018-06-10] MEDS: HEPARIN SODIUM,PORCINE 5,000 UNIT/ML 1 ML VIAL SQ SCH ×3 (00:18→15:49)
[2018-06-10] MEDS: INSULIN ASPART 100 UNIT/ML 1 ML 10 ML VIAL SQ SCH ×8 (00:22→18:08)
[2018-06-10] MEDS: ASCORBIC ACID INJ 1,500 MG in SODIUM CHLORIDE 0.9% 100 ML IVPB SCH ×3 (00:22→13:04)
[2018-06-10] MEDS: 1: MVI, ADULT NO.4 WITH VIT K 10 ML, THIAMINE 100 MG, FOLIC ACID 1 MG in SODIUM CHLORIDE IV SCH ×8 (02:10→11:48)
[2018-06-10] MEDS: PROPOFOL 1,000 MG in EMPTY BAG 1 BAG IV SCH ×3 (03:01→12:02)
[2018-06-10] MEDS: IPRATROPIUM-ALBUTEROL 3 ML NEB INHALATION SCH ×6 (03:44→23:19)
[2018-06-10 04:16] LABS: Anisocytosis Slight; Basophils % (A) 0 %; Eosinophils % (A) 0 %; HCT 24.3 % (39.0-53.0); HGB 7.4 gm/dL (13.0-17.5); Hypochromasia Slight; Lymphocytes # (A) 1.1 k/uL (1.0-4.8); Lymphocytes % (A) 7 %; MCH 27.2 pg (25.0-35.0); MCHC 30.6 g/dL (31.0-37.0); Mean Platelet Volume 7.2; Monocytes # (A) 0.8 k/uL (0-1.0); Monocytes % (A) 5 %; Neutrophils # (A) 14.3 k/uL (1.3-7.7); Neutrophils % (A) 88 %; Platelet Count 395 k/uL (150-450); RBC 2.73 m/uL (4.30-5.90); RDW 19.3 % (11.5-15.5); WBC 16.3 k/uL (3.8-10.6)
[2018-06-10 04:27] LABS: Anion Gap 2 mmol/L; Blood Urea Nitrogen 23 mg/dL (9-20); Calcium 8.3 mg/dL (8.4-10.2); Carbon Dioxide 36 mmol/L (22-30); Chloride 108 mmol/L (98-107); Glucose 133 mg/dL (74-99); Magnesium 1.7 mg/dL (1.6-2.3); Phosphorus 3.4 mg/dL (2.5-4.5); Potassium 3.7 mmol/L (3.5-5.1); Sodium 146 mmol/L (137-145)
[2018-06-10 05:13] LABS: ABG Base Excess 11.9 mmol/L; ABG HCO3 36 mmol/L (21-25); ABG Oxygen Saturation 92.7 % (94-97); ABG PCO2 52 mmHg (35-45); ABG PH 7.45 (7.35-7.45); ABG PO2 66 mmHg (83-108); ABG TCO2 38 mmol/L (19-24)
[2018-06-10] MEDS: VANCOMYCIN 1,500 MG in SODIUM CHLORIDE 0.9% 250 ML IVPB SCH ×3 (05:14→20:21)
[2018-06-10 05:22] LABS: Glucose,Whole Blood 136 mg/dL (75-99)
[2018-06-10] MEDS ORDERED: POTASSIUM BICARBONATE/CIT AC 20 MEQ TABLET.EFF NG-TUBE SCH (06:00)
[2018-06-10] MEDS: LORazepam 2 MG/ML INJ IV PRN ×4 (06:29→21:29)
[2018-06-10] MEDS: MAGNESIUM SULFATE-D5W PMX 1 GM in DEXTROSE/WATER 1 100ML.BAG IVPB SCH ×2 (07:08→08:59)
[2018-06-10] MEDS: BUDESONIDE 0.5 MG/2 ML NEBU INHALATION SCH ×3 (07:44→20:14)
--- NOTE | 2018-06-10 07:48 | XR ---
EXAMINATION TYPE: XR chest 1V portable DATE OF EXAM: 06/10/2018 COMPARISON: 06/09/2018 HISTORY: Ventilatory dependent respiratory failure. Endotracheal tube placement. TECHNIQUE: Single frontal view of the chest is obtained. FINDINGS: There is stable positioning of the endotracheal tube, enteric tube, and right-sided pr internship al jugular central venous catheter. Overall there are similar multifocal alveolar and interstitial op acities with increasing fluid in the right minor fissure and blunting of the costophrenic angles. Car diomediastinal silhouette is stable. IMPRESSION: 1. Stable lines and tubes. 2. Slight increase accumulation of fluid within the right minor fissure and similar trace pleural eff usions in combination with multifocal stable alveolar and interstitial airspace disease. Consideratio ns are for multifocal pneumonia and pulmonary edema.
--- NOTE | 2018-06-10 08:34 | P.PN ---
Subjective Progress Note Date: 06/10/18 Principal diagnosis: Bradycardia This is a 52-year-old gentleman who I asked to see because of her bradycardia. Currently the patient is intubated and he is on ventilator. The patient was brought to the emergency room by family because he was found unresponsive at home. In the emergency room the patient was found to be severely hypoxic and severely acidotic. The bronchoscopy was performed for suspicious that the patient was aspirated. No indication that the patient didn't have any symptoms of chest pain or chest discomfort before that event. No previous or documented history of coronary artery disease or congestive heart failure or any cardiac arrhythmia. Currently the patient is intubated and yesterday he was on vasopressors was vasopressin. He was bradycardic at that point and the vasopressin was switched to norepinephrine. The patient has been maintaining a good blood pressure and good heart rate and currently he is off any vasopressors. No more episodes of bradycardia noted. The patient does have a past medical history significant for alcohol abuse. On follow-up with the patient today, he did have an episode of bradycardia with lowest heart rate was in the 50s. The patient continues to be intubated and continues to be on ventilator. We'll await for the echocardiogram results. Objective - Vital Signs Vital signs: Vital Signs Temp 98.8 F 06/10/18 04:00 Pulse 71 06/10/18 08:01 Resp 24 06/10/18 08:01 BP 127/73 06/10/18 07:00 Pulse Ox 100 06/10/18 07:00 Intake & Output 06/09/18 06/10/18 06/10/18 18:59 06:59 18:59 Intake Total 2459.976 3869.633 Output Total 1455 1255 Balance 0732.695 0112.633 Weight 92.8 kg Intake: IV 1307 2278 0.9 for pressure bag 57 78 Ampicillin-Sulbactam 3 gm 100 200 In Sodium Chloride 0.9% 100 ml @ 100 mls/hr IVPB Q6HR [facility] Rx#:[id number] Ascorbic Acid Inj 1,500 100 mg In Sodium Chloride 0.9 % 100 ml @ 103 mls/hr IVPB Q6H [facility] Rx#: [id number] Sodium Chloride 0.9% 1, 200 1200 000 ml @ 100 mls/hr IV . BY DURATION [facility] Rx#: [id number] Sodium Chloride 0.9% 500 600 ml @ 150 mls/hr IV . Q3H20M [facility] Rx#:[id number] Thiamine 200 mg In Sodium 100 200 Chloride 0.9% 100 ml @ 200 mls/hr IVPB Q12HR [facility] Rx#:[id number] Vancomycin 1,500 mg In 250 500 Sodium Chloride 0.9% 250 ml @ 125 mls/hr IVPB Q8H [facility] Rx#:[id number] Intake, IV Titration 197.976 376.633 Amount Ascorbic Acid Inj 1,500 100 mg In Sodium Chloride 0.9 % 100 ml @ 103 mls/hr IVPB Q6H [facility] Rx#: [id number] Propofol 1,000 mg In 197.976 276.633 Empty Bag 1 bag @ Titrate IV .Q0M [facility] Rx#: [id number] Tube Feeding 865 1125 Other 90 90 Output: Urine 1450 1255 Stool 5 Other: Voiding Method Indwelling Catheter Indwelling Catheter ABP, PAP, CO, CI - Last Documented Arterial Blood Pressure 151/71 - Constitutional General appearance: Present: mild distress - Respiratory Respiratory: bilateral: diminished - Cardiovascular Rhythm: regular Heart sounds: normal: S1, S2 - Labs CBC & Chem 7: 06/10/18 04:00 06/10/18 04:00 Labs: Abnormal Lab Results - Last 24 Hours (Table) 06/09/18 06/09/18 06/10/18 Range/Units 11:08 17:31 00:03 WBC (3.8-10.6) k/uL RBC (4.30-5.90) m/uL Hgb (13.0-17.5) gm/dL Hct (39.0-53.0) % MCHC (31.0-37.0) g/dL RDW (11.5-15.5) % Neutrophils # (1.3-7.7) k/uL ABG pCO2 (35-45) mmHg ABG pO2 (83-108) mmHg ABG HCO3 (21-25) mmol/L ABG Total CO2 (19-24) mmol/L ABG O2 Saturation (94-97) % Sodium (137-145) mmol/L Chloride (98-107) mmol/L Carbon Dioxide (22-30) mmol/L BUN (9-20) mg/dL Creatinine (0.66-1.25) mg/dL Glucose (74-99) mg/dL POC Glucose (mg/dL) 163 H 167 H 150 H (75-99) mg/dL Calcium (8.4-10.2) mg/dL 06/10/18 06/10/18 06/10/18 Range/Units 04:00 04:00 05:10 WBC 16.3 H (3.8-10.6) k/uL RBC 2.73 L (4.30-5.90) m/uL Hgb 7.4 L (13.0-17.5) gm/dL Hct 24.3 L (39.0-53.0) % MCHC 30.6 L (31.0-37.0) g/dL RDW 19.3 H (11.5-15.5) % Neutrophils # 14.3 H (1.3-7.7) k/uL ABG pCO2 52 H (35-45) mmHg ABG pO2 66 L (83-108) mmHg ABG HCO3 36 H (21-25) mmol/L ABG Total CO2 38 H (19-24) mmol/L ABG O2 Saturation 92.7 L (94-97) % Sodium 146 H (137-145) mmol/L Chloride 108 H (98-107) mmol/L Carbon Dioxide 36 H (22-30) mmol/L BUN 23 H (9-20) mg/dL Creatinine 0.40 L (0.66-1.25) mg/dL Glucose 133 H (74-99) mg/dL POC Glucose (mg/dL) (75-99) mg/dL Calcium 8.3 L (8.4-10.2) mg/dL 06/10/18 Range/Units 05:21 WBC (3.8-10.6) k/uL RBC (4.30-5.90) m/uL Hgb (13.0-17.5) gm/dL Hct (39.0-53.0) % MCHC (31.0-37.0) g/dL RDW (11.5-15.5) % Neutrophils # (1.3-7.7) k/uL ABG pCO2 (35-45) mmHg ABG pO2 (83-108) mmHg ABG HCO3 (21-25) mmol/L ABG Total CO2 (19-24) mmol/L ABG O2 Saturation (94-97) % Sodium (137-145) mmol/L Chloride (98-107) mmol/L Carbon Dioxide (22-30) mmol/L BUN (9-20) mg/dL Creatinine (0.66-1.25) mg/dL Glucose (74-99) mg/dL POC Glucose (mg/dL) 136 H (75-99) mg/dL Calcium (8.4-10.2) mg/dL Microbiology - Last 24 Hours (Table) 06/08/18 14:14 CSF Gram Stain - Preliminary Cerebral Spinal Fluid CSF Culture - Preliminary 06/05/18 12:10 Blood Culture - Preliminary Blood No Growth after 96 hours 06/08/18 14:14 [facility] Preparation - Final Cerebral Spinal Fluid Assessment and Plan Assessment: Assessment #1 acute hypoxic respiratory failure #2 change in mental status #3 brief episode of bradycardia which has improved #4 multiple comorbid conditions you Plan #1 the patient currently is hemodynamically stable. He has been maintaining good blood pressure and good heart rate. #2 follow-up on the echocardiogram #3 follow-up with the patient. Thank you for allowing us participate in the patient's care
[2018-06-10] MEDS: HYDROCORTISONE SUCCINATE 100 MG/2 ML VIAL IV SCH ×2 (09:00→20:22)
[2018-06-10] MEDS: CHLORHEXIDINE GLUCONATE 15 ML CUP MUCOUS MEM SCH (09:00)
[2018-06-10] MEDS: PANTOPRAZOLE 40 MG/10 ML VIAL IV SCH (09:00)
[2018-06-10] MEDS: THIAMINE 200 MG in SODIUM CHLORIDE 0.9% 100 ML IVPB SCH (09:05)
[2018-06-10] MEDS: SODIUM FERRIC GLUCONAT-SUCROSE 125 MG in SODIUM CHLORIDE 0.9% 100 ML IVPB SCH (09:28)
--- NOTE | 2018-06-10 09:46 | ECHOF ---
Referral Reason:Bradycardia post respiratory failure MEASUREMENTS -------- HEIGHT: 180.3 cm WEIGHT: 92.5 kg BP: 127/73 RVIDd: 3.2 cm (< 3.3) IVSd: 0.9 cm (0.6 - 1.1) LVIDd: 4.4 cm (3.9 - 5.3) LVPWd: 0.9 cm (0.6 - 1.1) IVSs: 1.4 cm LVIDs: 2.6 cm LVPWs: 1.4 cm Ao Diam: 3.4 cm (2.0 - 3.7) AV Cusp: 2.0 cm (1.5 - 2.6) LA Diam: 2.9 cm (2.7 - 3.8) MV EXCURSION: 22.213 mm (> 18.000) MV EF SLOPE: 173 mm/s (70 - 150) EPSS: 0.6 cm MV E Higinio: 0.77 m/s MV DecT: 127 ms MV A Higinio: 0.70 m/s MV E/A Ratio: 1.11 RAP: 15.00 mmHg RVSP: 21.51 mmHg FINDINGS -------- Sinus rhythm. This was a technically difficult study with suboptimal views. Pt. on a vent. The left ventricular size is normal. Left ventricular wall thickness is normal. Overall left vent ricular systolic function is normal with, an EF between 55 - 60 %. The right ventricle is mildly enlarged. The left atrium is normal in size. The right atrium is normal in size. The aortic valve is trileaflet, and appears structurally normal. No aortic stenosis or regurgitation. There is trace mitral regurgitation. Mild tricuspid regurgitation present. The right ventricular systolic pressure, as measured by Doppl er, is 21.51mmHg. Pulmonic valve appears structurally normal. The aortic root size is normal. The inferior vena cava is mildly dilated. The pericardium is normal. CONCLUSIONS -------- 1. Sinus rhythm. 2. This was a technically difficult study with suboptimal views. 3. Pt. on a vent. 4. The left ventricular size is normal. 5. Left ventricular wall thickness is normal. 6. Overall left ventricular systolic function is normal with, an EF between 55 - 60 %. 7. The right ventricle is mildly enlarged. 8. The left atrium is normal in size. 9. The right atrium is normal in size. 10. The aortic valve is trileaflet, and appears structurally normal. No aortic stenosis or regurgitat ion. 11. There is trace mitral regurgitation. 12. Mild tricuspid regurgitation present. 13. The right ventricular systolic pressure, as measured by Doppler, is 21.51mmHg. 14. Pulmonic valve appears structurally normal. 15. The aortic root size is normal. 16. The inferior vena cava is mildly dilated. 17. The pericardium is normal. LIGHTING ENGINEER: Josefa Sharma RDCS
[2018-06-10 12:00] LABS: Glucose,Whole Blood 137 mg/dL (75-99)
[2018-06-10] MEDS ORDERED: FUROSEMIDE 10 MG/ML 4 ML VIAL IV STA (13:01)
[2018-06-10] MEDS: SODIUM CHLORIDE 0.9% 1,000 ML IV SCH (13:31)
--- NOTE | 2018-06-10 13:34 | P.PN ---
Subjective Progress Note Date: 06/10/18 (Critical care time spent 45 minutes) Principal diagnosis: Fluid overload related to likely component of diastolic heart failure, severe sepsis associated with the bilateral aspiration pneumonia, bilateral small pleural effusion related to fluid overload, Severe hypotension, bradycardia, electrolyte imbalance with hypokalemia and hypomagnesemia, altered mental status encephalopathy, chronic alcohol liver disease, chronic alcoholism, history of seizure disorder 06/09/2018, patient seen eval examined care plan discussed with the staff primary service as well as the family present at bedside at length patient remains on full ventilator support her drugs sedation holiday was performed and was able to open eyes does follow simple commands mental status slightly more improved today compared to yesterday, currently patient is on assist control rate of 20 breathing about 25 tidal volume is 550, PEEP is down to 5, FiO2 is 50 %, will give 40 mg of Lasix and stop the propofol stop the tube feed and put patient on CPAP and pressure support will lowered down the IV fluids as well to KVO, we'll change his IV medicines including vitamin C thiamine and folic acid to oral labs reviewed medications reviewed radiographic studies reviewed and compared with the prior x-ray 06/09/2018, patient seen eval examined during the rounds successfully able to continue work her from the vasopressin to review fed and subsequently levo fed has been taken off now patient remains on full respirator support currently patient is on assist control rate of 20 breathing 25 tidal volume of the 550 with the 10 of PEEP and 55% oxygen saturation is 95-96% labs reviewed medications reviewed radiographic studies reviewed as well, white cell count is down to 28,000 from 38,000 yesterday hemoglobin and hematocrit remains stable, potassium is slightly running on the lower side renal functions are stable sugars are slightly improved as well, the chest x-ray showed slight improvement in infiltrate, patient has been on tube feed 70 mL an hour tolerating very well no significant as well as seen no significant diarrhea has been seen today, central triple-lumen catheter as well as a line sites are intact, patient is a relatively more awake moving upper extremity some weakness in the lower extremity has been present we'll continue to monitor clinical course closely currently patient is not ready for weaning 06/08/2018, patient seen and evaluated examined care plan discussed with the primary service as well as the family present at bedside, patient has been having issues associated with significant bradycardia heart rate dropped down into the 40s, I have discontinued the vasopressin and start patient on levo fed drip he does have a central line in the right internal jugular area however he does not have a line which she will be needing for close hemodynamic monitoring , patient remains on 8 mics of levo fed drip as well as propofol of 40 mics, current vent settings include assist control rate of 20 breathing about 21 tidal volume is 550, PEEP is 10, FiO2 is 55%, today's chest x-ray laboratory data reviewed patient has been replaced with magnesium as well as potassium and repeat level continue show a low level was going to repeat it again and put 20 mg of KCl into the IV fluids, patient has a right lower lobe consolidation likely right lower lobe aspiration pneumonia as well as small effusion was patchy infiltrate on the left side as well this seems to be present on the left upper lobe as well as left lower lobe with a small effusion on the left side as well, labs are reviewed the white cell count remains elevated 38,000 not much change from yesterday, hemoglobin appears to be slightly trending down, patient has been noted to have significant degree of diarrhea the lactulose is been discontinued, stool for C. diff as well as checked which is negative diarrhea appears to be related to multifactorial processes including to feed as well as lactulose, arterial blood gases revealed hypercapnia appears to be related to severe pneumonia and COPD, we'll start tapering down the hydrocortisone and bring it to 50 mg every 12, borderline hyperglycemia is present patient is adequately covered with sliding scale insulin Review of the data revealed that this is a 52-year-old gentleman presented to emergency room, patient was found unresponsive and EMS was called. The Patient' s O2 saturation was 50%. He had minimal improvement on nonrebreather. The patient was subsequently intubated in the emergency room. The patient was found to have an elevated lactic acid of 12.6. He was profoundly acidotic with a pH of less than 7.0. The patient was hypotensive and started on Levophed. He is currently on 6 mcg/m of Levophed. He had large amount of green and secretions from the ET tube. It is assumed the patient aspirated. The patient is on 100% FiO2 and PEEP of 8. Bronchoscopy was performed to clear secretions. The patient has been given 2 L of IV fluids in the emergency room. Review of the data also revealed that He has had multiple admissions for alcohol intoxication and subsequently go through withdrawals. The patient has refused alcohol rehab in the past. The patient has required BiPAP in the past. He does drink about a pound of vodka daily. Objective - Vital Signs Vital signs: Vital Signs Temp 98.9 F 06/10/18 12:00 Pulse 71 06/10/18 13:00 Resp 54 H 06/10/18 13:00 BP 139/82 06/10/18 13:00 Pulse Ox 91 L 06/10/18 13:00 Intake & Output 06/09/18 06/10/18 06/10/18 18:59 06:59 18:59 Intake Total 2459.976 3869.633 892.409 Output Total 1455 1255 1003 Balance 9434.913 4464.633 -110.591 Weight 92.8 kg 92.8 kg Intake: IV 1307 2278 524 0.9 for pressure bag 57 78 24 Ampicillin-Sulbactam 3 gm 100 200 In Sodium Chloride 0.9% 100 ml @ 100 mls/hr IVPB Q6HR [facility] Rx#:[id number] Ascorbic Acid Inj 1,500 100 200 mg In Sodium Chloride 0.9 % 100 ml @ 103 mls/hr IVPB Q6H [facility] Rx#: [id number] Sodium Chloride 0.9% 1, 200 1200 200 000 ml @ 100 mls/hr IV . BY DURATION [facility] Rx#: [id number] Sodium Chloride 0.9% 500 600 ml @ 150 mls/hr IV . Q3H20M ONE Rx#:[id number] Thiamine 200 mg In Sodium 100 200 100 Chloride 0.9% 100 ml @ 200 mls/hr IVPB Q12HR [facility] Rx#:[id number] Vancomycin 1,500 mg In 250 500 Sodium Chloride 0.9% 250 ml @ 125 mls/hr IVPB Q8H [facility] Rx#:[id number] Intake, IV Titration 197.976 376.633 113.409 Amount Ascorbic Acid Inj 1,500 100 mg In Sodium Chloride 0.9 % 100 ml @ 103 mls/hr IVPB Q6H [facility] Rx#: [id number] Propofol 1,000 mg In 197.976 276.633 113.409 Empty Bag 1 bag @ Titrate IV .Q0M [facility] Rx#: [id number] Tube Feeding 865 1125 150 Other 90 90 105 Output: Urine 1450 1255 1000 Stool 5 3 Other: Voiding Method Indwelling Catheter Indwelling Catheter Indwelling Catheter ABP, PAP, CO, CI - Last Documented Arterial Blood Pressure 156/64 - Exam Gen.: Patient is sedated and intubated on full ventilator support, he does follow commands intermittently HEENT is unremarkable Neck is supple without any lymphadenopathy the triple-lumen site on the right internal jugular area is stable no obvious right heme edema noted Cardiovascular: Tachycardic, regular rate and rhythm, S1/S2 Lungs: Coarse breath sounds bilaterally, with bronchial breath sound at the left base Abdomen: Soft nontender nondistended positive bowel sounds, green bile secreations from OG tube Extremities: No edema Neuro: Unable to assess being on on sedation - Labs CBC & Chem 7: 06/10/18 04:00 06/10/18 04:00 Labs: Abnormal Lab Results - Last 24 Hours (Table) 06/09/18 06/10/18 06/10/18 Range/Units 17:31 00:03 04:00 WBC 16.3 H (3.8-10.6) k/uL RBC 2.73 L (4.30-5.90) m/uL Hgb 7.4 L (13.0-17.5) gm/dL Hct 24.3 L (39.0-53.0) % MCHC 30.6 L (31.0-37.0) g/dL RDW 19.3 H (11.5-15.5) % Neutrophils # 14.3 H (1.3-7.7) k/uL ABG pCO2 (35-45) mmHg ABG pO2 (83-108) mmHg ABG HCO3 (21-25) mmol/L ABG Total CO2 (19-24) mmol/L ABG O2 Saturation (94-97) % Sodium (137-145) mmol/L Chloride (98-107) mmol/L Carbon Dioxide (22-30) mmol/L BUN (9-20) mg/dL Creatinine (0.66-1.25) mg/dL Glucose (74-99) mg/dL POC Glucose (mg/dL) 167 H 150 H (75-99) mg/dL Calcium (8.4-10.2) mg/dL 06/10/18 06/10/18 06/10/18 Range/Units 04:00 05:10 05:21 WBC (3.8-10.6) k/uL RBC (4.30-5.90) m/uL Hgb (13.0-17.5) gm/dL Hct (39.0-53.0) % MCHC (31.0-37.0) g/dL RDW (11.5-15.5) % Neutrophils # (1.3-7.7) k/uL ABG pCO2 52 H (35-45) mmHg ABG pO2 66 L (83-108) mmHg ABG HCO3 36 H (21-25) mmol/L ABG Total CO2 38 H (19-24) mmol/L ABG O2 Saturation 92.7 L (94-97) % Sodium 146 H (137-145) mmol/L Chloride 108 H (98-107) mmol/L Carbon Dioxide 36 H (22-30) mmol/L BUN 23 H (9-20) mg/dL Creatinine 0.40 L (0.66-1.25) mg/dL Glucose 133 H (74-99) mg/dL POC Glucose (mg/dL) 136 H (75-99) mg/dL Calcium 8.3 L (8.4-10.2) mg/dL 06/10/18 Range/Units 11:57 WBC (3.8-10.6) k/uL RBC (4.30-5.90) m/uL Hgb (13.0-17.5) gm/dL Hct (39.0-53.0) % MCHC (31.0-37.0) g/dL RDW (11.5-15.5) % Neutrophils # (1.3-7.7) k/uL ABG pCO2 (35-45) mmHg ABG pO2 (83-108) mmHg ABG HCO3 (21-25) mmol/L ABG Total CO2 (19-24) mmol/L ABG O2 Saturation (94-97) % Sodium (137-145) mmol/L Chloride (98-107) mmol/L Carbon Dioxide (22-30) mmol/L BUN (9-20) mg/dL Creatinine (0.66-1.25) mg/dL Glucose (74-99) mg/dL POC Glucose (mg/dL) 137 H (75-99) mg/dL Calcium (8.4-10.2) mg/dL Microbiology - Last 24 Hours (Table) 06/08/18 14:14 CSF Gram Stain - Preliminary Cerebral Spinal Fluid CSF Culture - Preliminary 06/05/18 12:10 Blood Culture - Preliminary Blood No Growth after 96 hours Assessment and Plan Assessment: Acute hypoxic and hypercapnic respiratory failure Multi lobar Bilateral pneumonia likely aspiration related with right lower lobe consolidation and left-sided patchy infiltrate lower lobe as well as upper lobe Bilateral small pleural effusion Severe electrolyte imbalance with hypokalemia as well as hypomagnesemia being repleted Aspiration pneumonia Severe bradycardia and hypotension patient is been taken off of vasopressin in view fed is being started Likely anemia of chronic disease Septic shock Leukocytosis Anemia, normochromic, normocytic History of DVTs and seizure disorder Hyponatremia Nicotine dependence Hyperglycemia Alcohol abuse Plan: Will initiate weaning trials as well as gentle diuresis, see orders for detail As noted above electrolyte replacement Maintain on current ventilator setting Lower down the steroids Stool for C. difficile checked Electrolytes repleted Add potassium to the IV fluids Levophed to maintain map greater than 65, systolic blood pressure greater than 90 Placement of arterial line and hemodynamic monitoring Broad-spectrum antibiotics Monitor urine output and renal function Insulin sliding scale and Accu-Cheks Duo nebs and Pulmicort CIWA protocol Lactulose being discontinued, being monitor observe off of it Propofol for sedation, tapering sedation as tolerated Maintenance IV fluids at KVO GI and DVT prophylaxis Consult PT and OT for early mobility Tube feeds per dietary recommendations A.m. chest x-ray and ABG Thiamine, folate, multivitamin Seizure and aspiration precautions Patient's mother at bedside is updated to patient's condition, plan of care, procedure explained to the patient's mother Time with Patient: Greater than 30
[2018-06-10 13:54] LABS: ABG Base Excess 13.7 mmol/L; ABG HCO3 38 mmol/L (21-25); ABG Oxygen Saturation 89.6 % (94-97); ABG PCO2 58 mmHg (35-45); ABG PH 7.43 (7.35-7.45); ABG PO2 62 mmHg (83-108); ABG TCO2 40 mmol/L (19-24)
--- NOTE | 2018-06-10 16:49 | PN ---
PROGRESS NOTE SUBJECTIVE: A 52-year-old white male who is having some improvement. His white count is down from 24 to 16,000. He is opening eyes to commands. He appears to be slowly improving even though he is on a ventilator at this time. He will be slowly weaned off his propofol sedation. Continue with IV fluids. Continue to improve. CARDIOVASCULAR: S1, S2. LUNGS: Scattered rhonchi and wheeze. HEMATOLOGY: Negative Homans. PSYCH: Fair mood and affect. ASSESSMENT: 1. Urinary tract infection. 2. Acute hypoxemic hypercapnic respiratory failure. 3. Multilobular bilateral pneumonia with right lower lobe consolidation. 4. Left-sided patchy infiltrate in the lower lobe. 5. Bilateral pleural effusion. 6. Electrolyte imbalance. 7. Hyperkalemia. 8. Aspiration pneumonia. 9. Anemia of chronic disease. 10.Septic shock. 11.Leukocytosis. Broad-spectrum antibiotics, sliding scale, DuoNeb, Pulmicort, CIWA protocol. Continue current treatment. The patient appears to be improving. MMODL / IJN: [id number] /
[2018-06-10] MEDS ORDERED: FUROSEMIDE 10 MG/ML 4 ML VIAL IV ONE (18:00)
[2018-06-10 18:05] LABS: Glucose,Whole Blood 94 mg/dL (75-99)
[2018-06-10 19:13] LABS: Blood Urea Nitrogen 21 mg/dL (9-20); Calcium 8.4 mg/dL (8.4-10.2); Chloride 101 mmol/L (98-107); Glucose 84 mg/dL (74-99); Potassium 3.4 mmol/L (3.5-5.1); Sodium 145 mmol/L (137-145)
[2018-06-10 19:19] LABS: Anion Gap 1 mmol/L
[2018-06-10 19:27] LABS: Carbon Dioxide 43 mmol/L (22-30)
[2018-06-10] MEDS ORDERED: ASCORBIC ACID 500 MG TAB PO SCH (21:00)
--- NOTE | 2018-06-10 23:13 | PN ---
PROGRESS NOTE DATE OF SERVICE: 06/10/2018. REASON FOR FOLLOWUP: Aspiration pneumonia. INTERVAL HISTORY: The patient's overall fever pattern has improved. The patient is hemodynamically stable, not on any pressor support. He was evaluated on rounds this morning. He has been tolerating his tube feed. Did have some diarrhea yesterday. However, the patient had received a few doses of lactulose per the RN. No other history could be obtained, as the patient is currently on the vent. PHYSICAL EXAMINATION: Blood pressure is 139/84 with a pulse of 73, temperature 98. He is 90% on 50% FiO2. General description is a middle-aged male, intubated on the vent. HEENT examination shows slight pallor. No scleral icterus. The patient is orally intubated. LUNGS: Unlabored breathing. Some coarse breath sounds in the bases. No wheeze. HEART: S1, S2. Regular rate and rhythm. ABDOMEN: Soft. No tenderness. EXTREMITIES: No edema of the feet. LABS: Hemoglobin 7.4, white count 16.3 with a BUN of 21, creatinine 0.48. His bronch culture has been negative so far. Blood culture is negative. DIAGNOSTIC IMPRESSION AND PLAN: Patient with acute respiratory failure, multifactorial, with a component of possible aspiration and pneumonia. The patient is currently covered with Unasyn, as his culture has been negative. His fever has resolved. Will continue to monitor the patient closely and will switch him to oral once extubated and oral intake is improved. MMODL / IJN: [id number] /
[2018-06-11] MEDS: AMPICILLIN-SULBACTAM 3 GM in SODIUM CHLORIDE 0.9% 100 ML IVPB SCH ×4 (00:07→18:44)
[2018-06-11] MEDS: HEPARIN SODIUM,PORCINE 5,000 UNIT/ML 1 ML VIAL SQ SCH ×3 (00:08→15:59)
[2018-06-11] MEDS: INSULIN ASPART 100 UNIT/ML 1 ML 10 ML VIAL SQ SCH ×8 (00:10→20:07)
[2018-06-11 00:11] LABS: Glucose,Whole Blood 114 mg/dL (75-99)
--- NOTE | 2018-06-11 00:40 | P.PN ---
Subjective Progress Note Date: 06/10/18 This patient is a 52-year-old male who is seen today in the intensive care unit for altered mental status and obtundation. Patient was extubated off of the ventilator this morning. He is currently on BiPAP and seems to be doing fairly well. It was recommended the patient to undergo a lumbar puncture for further evaluation of sepsis. Lumbar puncture was completed today by anesthesia. His spinal fluid results came back negative for any signs of BED RUBBER infection. Patient continues on his CIWA protocol. He is receiving Unasyn and vancomycin for antibiotic coverage. Infectious disease is also following. As noted his spinal tap was completed today results are essentially negative for any evidence of BED RUBBER infection. Cytology results are still pending. His C. difficile study came back negative. He did undergo routine EEG today which is reviewed and reveals severe slowing with background activity of 4-5 Hz with no epileptiform discharges. We reviewed all of these test results today in detail with the patient's mother who was at bedside in the intensive care unit. Patient's mother was at bedside and she was updated on his improvement in his neurological status following extubation today. He is currently on BiPAP and does seem to follow simple commands and nods his head appropriately. He has been speaking to his family as well. She is wanting him to be considered for inpatient rehab if he is able to show improvement down the line. The patient has a history of alcohol abuse and has had difficulty with abstinence in the past. According to his mother he has not sought out appropriate drug rehabilitation in the past. We will continue close monitoring for the patient in the ICU. The patient has been showing slight improvement today in his neurological exam. As noted he was extubated today and is following simple commands. We will plan to get a follow-up EEG tomorrow for comparison. Patient 's mother was at bedside and she was updated on all of his neurological findings today. He is showing signs of improvement in his overall neurological status today. We will continue to follow his progress closely in the ICU. Objective - Vital Signs Vital signs: Vital Signs Temp 99.2 F 06/10/18 20:00 Pulse 94 06/10/18 20:33 Resp 24 06/10/18 20:33 BP 123/79 06/10/18 20:00 Pulse Ox 88 L 06/10/18 20:00 Intake & Output 06/10/18 06/10/18 06/11/18 06:59 18:59 06:59 Intake Total 3869.633 1163.409 197 Output Total 1255 3905 950 Balance 5354.633 -5151.591 -753 Weight 92.8 kg 92.8 kg Intake: IV 2278 795 197 0.9 for pressure bag 78 45 12 Ampicillin-Sulbactam 3 gm 200 100 In Sodium Chloride 0.9% 100 ml @ 100 mls/hr IVPB Q6HR [facility] Rx#:[id number] Ascorbic Acid Inj 1,500 100 200 mg In Sodium Chloride 0.9 % 100 ml @ 103 mls/hr IVPB Q6H [facility] Rx#: [id number] Sodium Chloride 0.9% 1, 1200 350 60 000 ml @ 100 mls/hr IV . BY DURATION [facility] Rx#: [id number] Thiamine 200 mg In Sodium 200 100 Chloride 0.9% 100 ml @ 200 mls/hr IVPB Q12HR [facility] Rx#:[id number] Vancomycin 1,500 mg In 500 125 Sodium Chloride 0.9% 250 ml @ 125 mls/hr IVPB Q8H [facility] Rx#:[id number] Intake, IV Titration 376.633 113.409 Amount Ascorbic Acid Inj 1,500 100 mg In Sodium Chloride 0.9 % 100 ml @ 103 mls/hr IVPB Q6H [facility] Rx#: [id number] Propofol 1,000 mg In 276.633 113.409 Empty Bag 1 bag @ Titrate IV .Q0M [facility] Rx#: [id number] Tube Feeding 1125 150 Other 90 105 Output: Urine 1255 3900 950 Stool 5 Other: Voiding Method Indwelling Catheter Indwelling Catheter Indwelling Catheter ABP, PAP, CO, CI - Last Documented Arterial Blood Pressure 142/72 - Exam Physical examination: PHYSICAL EXAMINATION: Patient was extubated today and he is currently on BiPAP. VITAL SIGNS: Blood pressure is [123/77]. Heart rate is [110]. Respiration is [24 ]. Temperature is [99.2]. HEENT: Head is atraumatic, neck is supple, there were no carotid bruits. CHEST: Lungs are clear to auscultation and percussion. CARDIAC: S1, S2 normal rate and rhythm. There is no murmur. ABDOMEN: Soft and nontender. Bowel sounds are present. EXTREMITIES: There is no pedal edema. Peripheral pulses are present. Neurological examination: Patient was extubated earlier today. He is currently on BiPAP. He is more awake and alert and is following simple commands. Cranial nerves II through XII are grossly intact. Deep tendon reflexes are hypoactive 1+. Plantar responses flexor bilaterally. Coordination and gait cannot be assessed in this patient at this time. - Labs CBC & Chem 7: 06/10/18 04:00 06/10/18 18:30 Labs: Abnormal Lab Results - Last 24 Hours (Table) 06/10/18 06/10/18 06/10/18 Range/Units 00:03 04:00 04:00 WBC 16.3 H (3.8-10.6) k/uL RBC 2.73 L (4.30-5.90) m/uL Hgb 7.4 L (13.0-17.5) gm/dL Hct 24.3 L (39.0-53.0) % MCHC 30.6 L (31.0-37.0) g/dL RDW 19.3 H (11.5-15.5) % Neutrophils # 14.3 H (1.3-7.7) k/uL ABG pCO2 (35-45) mmHg ABG pO2 (83-108) mmHg ABG HCO3 (21-25) mmol/L ABG Total CO2 (19-24) mmol/L ABG O2 Saturation (94-97) % Sodium 146 H (137-145) mmol/L Potassium (3.5-5.1) mmol/L Chloride 108 H (98-107) mmol/L Carbon Dioxide 36 H (22-30) mmol/L BUN 23 H (9-20) mg/dL Creatinine 0.40 L (0.66-1.25) mg/dL Glucose 133 H (74-99) mg/dL POC Glucose (mg/dL) 150 H (75-99) mg/dL Calcium 8.3 L (8.4-10.2) mg/dL 06/10/18 06/10/18 06/10/18 Range/Units 05:10 05:21 11:57 WBC (3.8-10.6) k/uL RBC (4.30-5.90) m/uL Hgb (13.0-17.5) gm/dL Hct (39.0-53.0) % MCHC (31.0-37.0) g/dL RDW (11.5-15.5) % Neutrophils # (1.3-7.7) k/uL ABG pCO2 52 H (35-45) mmHg ABG pO2 66 L (83-108) mmHg ABG HCO3 36 H (21-25) mmol/L ABG Total CO2 38 H (19-24) mmol/L ABG O2 Saturation 92.7 L (94-97) % Sodium (137-145) mmol/L Potassium (3.5-5.1) mmol/L Chloride (98-107) mmol/L Carbon Dioxide (22-30) mmol/L BUN (9-20) mg/dL Creatinine (0.66-1.25) mg/dL Glucose (74-99) mg/dL POC Glucose (mg/dL) 136 H 137 H (75-99) mg/dL Calcium (8.4-10.2) mg/dL 06/10/18 06/10/18 Range/Units 13:52 18:30 WBC (3.8-10.6) k/uL RBC (4.30-5.90) m/uL Hgb (13.0-17.5) gm/dL Hct (39.0-53.0) % MCHC (31.0-37.0) g/dL RDW (11.5-15.5) % Neutrophils # (1.3-7.7) k/uL ABG pCO2 58 H (35-45) mmHg ABG pO2 62 L (83-108) mmHg ABG HCO3 38 H (21-25) mmol/L ABG Total CO2 40 H (19-24) mmol/L ABG O2 Saturation 89.6 L (94-97) % Sodium (137-145) mmol/L Potassium 3.4 L (3.5-5.1) mmol/L Chloride (98-107) mmol/L Carbon Dioxide 43 H* (22-30) mmol/L BUN 21 H (9-20) mg/dL Creatinine 0.48 L (0.66-1.25) mg/dL Glucose (74-99) mg/dL POC Glucose (mg/dL) (75-99) mg/dL Calcium (8.4-10.2) mg/dL Microbiology - Last 24 Hours (Table) 06/08/18 14:14 CSF Gram Stain - Preliminary Cerebral Spinal Fluid CSF Culture - Preliminary 06/05/18 12:10 Blood Culture - Preliminary Blood No Growth after 120 hours Assessment and Plan (1) Acute metabolic encephalopathy Current Visit: Yes Status: Acute Code(s): G93.41 - METABOLIC ENCEPHALOPATHY SNOMED Code(s): 37190567 (2) Respiratory failure Current Visit: Yes Status: Acute Code(s): J96.90 - RESPIRATORY FAILURE, UNSP , UNSP W HYPOXIA OR HYPERCAPNIA SNOMED Code(s): 085312198 (3) Sepsis Current Visit: Yes Status: Acute Code(s): A41.9 - SEPSIS, UNSPECIFIED ORGANISM SNOMED Code(s): 27243458 (4) Alcohol dependence with withdrawal Current Visit: No Status: Acute Code(s): F10.239 - ALCOHOL DEPENDENCE WITH WITHDRAWAL, UNSPECIFIED SNOMED Code(s): 17061653 (5) Seizure disorder Current Visit: No Status: Acute Code(s): G40.909 - EPILEPSY, UNSP, NOT INTRACTABLE, WITHOUT STATUS EPILEPTICUS SNOMED Code(s): 211272610 Plan: This patient is a 52-year-old male who was extubated today following recent evidence of pneumonia and severe sepsis. He is showing significant improvement today and was able to be extubated. He is currently on BiPAP. He is following simple commands. We have recommended a follow-up EEG to be done tomorrow for comparison to his previous study. He does seem to follow simple commands. He has evidence of a diffuse metabolic encephalopathy which is showing improvement. Case was discussed today with the patient's mother who was at bedside in the ICU. She was updated on his neurological status and slight improvement in mental status. His overall prognosis at this time remains guarded.
[2018-06-11] MEDS: VANCOMYCIN 1,500 MG in SODIUM CHLORIDE 0.9% 250 ML IVPB SCH ×3 (03:29→20:06)
[2018-06-11] MEDS: IPRATROPIUM-ALBUTEROL 3 ML NEB INHALATION SCH ×5 (03:43→19:15)
[2018-06-11] MEDS: POTASSIUM CHLORIDE 20 MEQ in WATER FOR INJECTION 1 100ML.BAG IVPB SCH ×2 (04:45→07:10)
[2018-06-11 05:01] LABS: ALT 50 U/L (21-72); AST 42 U/L (17-59); Albumin 2.2 g/dL (3.5-5.0); Alkaline Phosphatase 63 U/L (38-126); Blood Urea Nitrogen 20 mg/dL (9-20); Calcium 8.4 mg/dL (8.4-10.2); Chloride 99 mmol/L (98-107); Glucose 91 mg/dL (74-99); Potassium 3.3 mmol/L (3.5-5.1); Sodium 145 mmol/L (137-145); Total Bilirubin 0.2 mg/dL (0.2-1.3); Total Protein 5.1 g/dL (6.3-8.2)
[2018-06-11 05:08] LABS: Anion Gap 2 mmol/L
[2018-06-11 05:11] LABS: Carbon Dioxide 44 mmol/L (22-30)
[2018-06-11 05:35] LABS: Anisocytosis Slight; Basophils % (A) 0 %; Eosinophils % (A) 0 %; HCT 24.9 % (39.0-53.0); HGB 7.7 gm/dL (13.0-17.5); Hypochromasia Slight; Lymphocytes # (A) 1.6 k/uL (1.0-4.8); Lymphocytes % (A) 9 %; MCH 27.5 pg (25.0-35.0); MCHC 30.9 g/dL (31.0-37.0); Mean Platelet Volume 6.6; Monocytes # (A) 0.7 k/uL (0-1.0); Monocytes % (A) 4 %; Neutrophils # (A) 15.2 k/uL (1.3-7.7); Neutrophils % (A) 86 %; Platelet Count 415 k/uL (150-450); RDW 19.3 % (11.5-15.5); WBC 17.6 k/uL (3.8-10.6)
[2018-06-11 06:16] LABS: Glucose,Whole Blood 87 mg/dL (75-99)
--- NOTE | 2018-06-11 08:07 | P.PN ---
Subjective Progress Note Date: 06/11/18 Principal diagnosis: Bradycardia This is a 52-year-old gentleman who I asked to see because of her bradycardia. Currently the patient is intubated and he is on ventilator. The patient was brought to the emergency room by family because he was found unresponsive at home. In the emergency room the patient was found to be severely hypoxic and severely acidotic. The bronchoscopy was performed for suspicious that the patient was aspirated. No indication that the patient didn't have any symptoms of chest pain or chest discomfort before that event. No previous or documented history of coronary artery disease or congestive heart failure or any cardiac arrhythmia. Currently the patient is intubated and yesterday he was on vasopressors was vasopressin. He was bradycardic at that point and the vasopressin was switched to norepinephrine. The patient has been maintaining a good blood pressure and good heart rate and currently he is off any vasopressors. No more episodes of bradycardia noted. The patient does have a past medical history significant for alcohol abuse. On follow-up with the patient today, he was extubated. He is laying comfortably in bed. No more episode of bradycardia noted. He continues to be on Lasix IV for a component of diastolic congestive heart failure. The creatinine continues to be within normal limits and a GFR more than 60. The echocardiogram revealed normal LV function with an ejection fraction of 60% and no evidence of any severe valvular abnormalities. Objective - Vital Signs Vital signs: Vital Signs Temp 98.4 F 06/11/18 00:00 Pulse 51 L 06/11/18 07:00 Resp 22 06/11/18 07:00 BP 120/74 06/11/18 07:00 Pulse Ox 99 06/11/18 07:00 Intake & Output 06/10/18 06/11/18 06/11/18 18:59 06:59 18:59 Intake Total 1163.409 982 136 Output Total 3905 9160 145 Balance -2741.591 -1398 -9 Weight 92.8 kg 88.4 kg Intake: IV 795 882 36 0.9 for pressure bag 45 72 6 Ampicillin-Sulbactam 3 gm 100 200 In Sodium Chloride 0.9% 100 ml @ 100 mls/hr IVPB Q6HR [facility] Rx#:[id number] Ascorbic Acid Inj 1,500 200 mg In Sodium Chloride 0.9 % 100 ml @ 103 mls/hr IVPB Q6H [facility] Rx#: [id number] Sodium Chloride 0.9% 1, 350 360 30 000 ml @ 100 mls/hr IV . BY DURATION [facility] Rx#: [id number] Thiamine 200 mg In Sodium 100 Chloride 0.9% 100 ml @ 200 mls/hr IVPB Q12HR [facility] Rx#:[id number] Vancomycin 1,500 mg In 250 Sodium Chloride 0.9% 250 ml @ 125 mls/hr IVPB Q8H [facility] Rx#:[id number] Intake, IV Titration 113.409 100 100 Amount Potassium Chloride 20 meq 100 100 In Water For Injection 1 100ml.bag @ 50 mls/hr IVPB Q2H [facility] Rx#: [id number] Propofol 1,000 mg In 113.409 Empty Bag 1 bag @ Titrate IV .Q0M [facility] Rx#: [id number] Tube Feeding 150 Other 105 Output: Urine 3900 2380 145 Stool 5 Other: Voiding Method Indwelling Catheter Indwelling Catheter ABP, PAP, CO, CI - Last Documented Arterial Blood Pressure 139/60 - Constitutional General appearance: Present: no acute distress - Respiratory Respiratory: bilateral: rales - Cardiovascular Rhythm: regular Heart sounds: normal: S1, S2 - Labs CBC & Chem 7: 06/11/18 04:10 06/11/18 04:10 Labs: Abnormal Lab Results - Last 24 Hours (Table) 06/10/18 06/10/18 06/10/18 Range/Units 11:57 13:52 18:30 WBC (3.8-10.6) k/uL RBC (4.30-5.90) m/uL Hgb (13.0-17.5) gm/dL Hct (39.0-53.0) % MCHC (31.0-37.0) g/dL RDW (11.5-15.5) % Neutrophils # (1.3-7.7) k/uL ABG pCO2 58 H (35-45) mmHg ABG pO2 62 L (83-108) mmHg ABG HCO3 38 H (21-25) mmol/L ABG Total CO2 40 H (19-24) mmol/L ABG O2 Saturation 89.6 L (94-97) % Potassium 3.4 L (3.5-5.1) mmol/L Carbon Dioxide 43 H* (22-30) mmol/L BUN 21 H (9-20) mg/dL Creatinine 0.48 L (0.66-1.25) mg/dL POC Glucose (mg/dL) 137 H (75-99) mg/dL Magnesium (1.6-2.3) mg/dL Ammonia (<30) umol/L Total Protein (6.3-8.2) g/dL Albumin (3.5-5.0) g/dL 06/11/18 06/11/18 06/11/18 Range/Units 00:09 04:10 04:10 WBC 17.6 H (3.8-10.6) k/uL RBC 2.80 L (4.30-5.90) m/uL Hgb 7.7 L (13.0-17.5) gm/dL Hct 24.9 L (39.0-53.0) % MCHC 30.9 L (31.0-37.0) g/dL RDW 19.3 H (11.5-15.5) % Neutrophils # 15.2 H (1.3-7.7) k/uL ABG pCO2 (35-45) mmHg ABG pO2 (83-108) mmHg ABG HCO3 (21-25) mmol/L ABG Total CO2 (19-24) mmol/L ABG O2 Saturation (94-97) % Potassium 3.3 L (3.5-5.1) mmol/L Carbon Dioxide 44 H* (22-30) mmol/L BUN (9-20) mg/dL Creatinine 0.50 L (0.66-1.25) mg/dL POC Glucose (mg/dL) 114 H (75-99) mg/dL Magnesium (1.6-2.3) mg/dL Ammonia (<30) umol/L Total Protein 5.1 L (6.3-8.2) g/dL Albumin 2.2 L (3.5-5.0) g/dL 06/11/18 06/11/18 Range/Units 04:10 07:00 WBC (3.8-10.6) k/uL RBC (4.30-5.90) m/uL Hgb (13.0-17.5) gm/dL Hct (39.0-53.0) % MCHC (31.0-37.0) g/dL RDW (11.5-15.5) % Neutrophils # (1.3-7.7) k/uL ABG pCO2 (35-45) mmHg ABG pO2 (83-108) mmHg ABG HCO3 (21-25) mmol/L ABG Total CO2 (19-24) mmol/L ABG O2 Saturation (94-97) % Potassium (3.5-5.1) mmol/L Carbon Dioxide (22-30) mmol/L BUN (9-20) mg/dL Creatinine (0.66-1.25) mg/dL POC Glucose (mg/dL) (75-99) mg/dL Magnesium 1.3 L (1.6-2.3) mg/dL Ammonia 33 H (<30) umol/L Total Protein (6.3-8.2) g/dL Albumin (3.5-5.0) g/dL Microbiology - Last 24 Hours (Table) 06/08/18 14:14 CSF Gram Stain - Preliminary Cerebral Spinal Fluid CSF Culture - Preliminary 06/05/18 12:10 Blood Culture - Preliminary Blood No Growth after 120 hours Assessment and Plan Assessment: Assessment #1 acute hypoxic respiratory failure #2 change in mental status #3 brief episode of bradycardia which has improved #4 multiple comorbid conditions you Plan #1 the patient currently is hemodynamically stable. He has been maintaining good blood pressure and good heart rate. #2 the echocardiogram was reviewed and showed normal LV function. Thank you for allowing us participate in the patient's care
--- NOTE | 2018-06-11 08:12 | XR ---
EXAMINATION TYPE: XR chest 1V portable DATE OF EXAM: 06/11/2018 Comparison: 06/10/2018 Clinical History: 52-year-old male Tube placement Findings: Interval extubation and removal of NG tube. Right IJ CVC tip remains in the uppermost right atrium. R ight heart margin remains obscured by adjacent pleural parenchymal disease. Diffuse interstitial dens ities persist with perihilar densities and right mid and lower lung opacities. Small effusions. Aerat ion shows slight improvement from prior. Impression: Continued diffuse interstitial opacities and mid and lower lung airspace disease. Overall, there has been slight improvement in aeration. Trace effusions persist.
[2018-06-11] MEDS: BUDESONIDE 0.5 MG/2 ML NEBU INHALATION SCH ×2 (08:14→19:15)
[2018-06-11] MEDS ORDERED: FUROSEMIDE 10 MG/ML 2 ML VIAL IV SCH (09:00)
[2018-06-11] MEDS ORDERED: Magnesium Replacement Protocol 1 EACH MISC MISCELLANE PRN (09:17)
[2018-06-11] MEDS: HYDROCORTISONE SUCCINATE 100 MG/2 ML VIAL IV SCH (09:23)
[2018-06-11] MEDS: PANTOPRAZOLE 40 MG/10 ML VIAL IV SCH (09:24)
[2018-06-11] MEDS: MAGNESIUM SULFATE-D5W PMX 1 GM in DEXTROSE/WATER 1 100ML.BAG IVPB SCH ×5 (09:45→22:38)
--- NOTE | 2018-06-11 10:30 | P.PN ---
Subjective Progress Note Date: 06/11/18 History of present illness: This is a 52-year-old gentleman who [facility]. History is unable to be obtained from the patient as he is sedated on the ventilator. Per the emergency room note the patient was found unresponsive and EMS was called. The Patient's O2 saturation was 50%. He had minimal improvement on nonrebreather. The patient was to Make an hypoxic and subsequently intubated in the emergency room. The patient was found to have an elevated lactic acid of 12.6. He was profoundly acidotic with a pH of less than 7.0. The patient was hypotensive and started on Levophed. He is currently on 6 mcg/m of Levophed. He is having a large amount of green and secretions from the ET tube. It is assumed the patient aspirated. The patient is on 100% FiO2 and PEEP of 8. Bronchoscopy is performed to clear secretions. The patient has been given 2 L of IV fluids in the emergency room. He has maintenance fluids running at 100 mL per hour. He does intermittently respond to commands. The patient is a known alcoholic. He has had multiple admissions for alcohol intoxication and subsequently go through withdrawals. The patient has refused alcohol rehab in the past. The patient has required BiPAP in the past. He does drink about a pound of vodka daily. The patient's chest x-ray shows right lower lobe infiltrate. EKG shows sinus tachycardia. He also has slightly elevated troponins. Interval History: 06/06/18- patient is being seen examined and evaluated today on rounds. He is on mechanical ventilation with propofol for sedation. Current mechanical ventilation settings are assist control mode with a respiratory rate of 20, tidal volume of 550, FiO2 of 70%, and a PEEP of 8. Currently he is on Levophed at 8 mics, and propofol at 30 mics. OG tube has green bile like output, ET tube continues to have green tea-like secretions. He has been making urine. He has got a total of 4 L of fluid resuscitation. His ABGs from this morning reveal a pH of 7.33, pCO2 of 55, pO2 of 85 and HCO3 of 29. Dietary is on board and will be starting tube feeds today. His potassium is 3.5 is being replaced his magnesium is 1.3 and being replaced. His chest x-ray was reviewed and lines are stable ET tube can be advanced to 3 cm. He has a persistent right loculated pleural effusion and a trace left pleural effusion. Infectious disease has been consulted. He continues on antibiotics. Mother is at bedside updated on plan of care. No plans for extubation today. 06/07/18- patient is being seen examined and evaluated today on rounds in the intensive care unit. Patient continues on mechanical ventilation with propofol for sedation. Current mechanical ventilator settings are assist-control mode with respiratory rate of 20, tidal volume of 550, FiO2 80%, and a PEEP of 8. Patient's blood gases from this morning reveal a pH of 7.38 pCO2 of 55, pO2 of 67, and HCO3 of 33. The ABGs were done on 70% of FiO2 and were titrated up to 80% after that. He did know to have a slight increase in his temperature this morning and Ofirmev given. He also was noted to be tachycardiac and Ativan was given for the CIWA protocol. He continues to have moderate amount of secretions from ET tube. He has been tolerating his tube feedings. He has been making good urine approximately 70 per hour. Infectious disease did see the patient yesterday. His ammonia also did improve to 31 today. 06/08/18 to 06/10/[address] Velazquez's notes for coverage 06/11/18- patient is being seen examined and evaluated today on rounds. He is resting up in bed on BiPAP, BiPAP settings are IPAP of 15, EPAP of 10, FiO2 70% . He is noted to have oxygen desaturations with removal of the BiPAP. He has taken it off intermittently for quick sips of water without issues. He has no issues with swallowing water. He has been making good urine. He is alert and active. Mother at bedside. Electrolytes being replaced. Chest x-ray has been reviewed. His hemoglobin is 7.7 today. He is afebrile denies any further complaints. Objective - Vital Signs Vital signs: Vital Signs Temp 98.3 F 06/11/18 08:00 Pulse 77 06/11/18 08:39 Resp 83 H 06/11/18 08:00 BP 120/74 06/11/18 08:00 Pulse Ox 94 L 06/11/18 08:00 Intake & Output 06/10/18 06/11/18 06/11/18 18:59 06:59 18:59 Intake Total 1163.409 982 176 Output Total 3905 2380 415 Balance -2741.591 -1398 -239 Weight 92.8 kg 88.4 kg Intake: IV 795 882 76 0.9 for pressure bag 45 72 46 Ampicillin-Sulbactam 3 gm 100 200 In Sodium Chloride 0.9% 100 ml @ 100 mls/hr IVPB Q6HR [facility] Rx#:[id number] Ascorbic Acid Inj 1,500 200 mg In Sodium Chloride 0.9 % 100 ml @ 103 mls/hr IVPB Q6H [facility] Rx#: [id number] Sodium Chloride 0.9% 1, 350 360 30 000 ml @ 100 mls/hr IV . BY DURATION [facility]O Rx#: [id number] Thiamine 200 mg In Sodium 100 Chloride 0.9% 100 ml @ 200 mls/hr IVPB Q12HR [facility] Rx#:[id number] Vancomycin 1,500 mg In 250 Sodium Chloride 0.9% 250 ml @ 125 mls/hr IVPB Q8H [facility] Rx#:[id number] Intake, IV Titration 113.409 100 100 Amount Potassium Chloride 20 meq 100 100 In Water For Injection 1 100ml.bag @ 50 mls/hr IVPB Q2H [facility] Rx#: [id number] Propofol 1,000 mg In 113.409 Empty Bag 1 bag @ Titrate IV .Q0M [facility] Rx#: [id number] Tube Feeding 150 Other 105 Output: Urine 3900 2380 415 Stool 5 Other: Voiding Method Indwelling Catheter Indwelling Catheter ABP, PAP, CO, CI - Last Documented Arterial Blood Pressure 122/62 - Exam GENERAL EXAM: Alert, active, comfortable in no apparent distress on BiPap. HEAD: Normocephalic. EYES: Normal reaction of pupils, equal size. NOSE: Clear with pink turbinates. THROAT: No erythema or exudates. NECK: No masses, no JVD. CHEST: No chest wall deformity. LUNGS: Lungs noted to be coarse throughout with some scattered rhonchi CVS: S1 and S2 normal with no audible mumurs, regular rhythm. ABDOMEN: No hepatosplenomegaly, normal bowel sounds, no guarding or rigidity. EXTREMITIES: Trace edema noted, pedal pulses palpable. CENTRAL NERVOUS SYSTEM: No focal deficits, tone is normal in all 4 extremities. - Labs CBC & Chem 7: 06/11/18 04:10 06/11/18 04:10 Labs: Abnormal Lab Results - Last 24 Hours (Table) 06/10/18 06/10/18 06/10/18 Range/Units 11:57 13:52 18:30 WBC (3.8-10.6) k/uL RBC (4.30-5.90) m/uL Hgb (13.0-17.5) gm/dL Hct (39.0-53.0) % MCHC (31.0-37.0) g/dL RDW (11.5-15.5) % Neutrophils # (1.3-7.7) k/uL ABG pCO2 58 H (35-45) mmHg ABG pO2 62 L (83-108) mmHg ABG HCO3 38 H (21-25) mmol/L ABG Total CO2 40 H (19-24) mmol/L ABG O2 Saturation 89.6 L (94-97) % Potassium 3.4 L (3.5-5.1) mmol/L Carbon Dioxide 43 H* (22-30) mmol/L BUN 21 H (9-20) mg/dL Creatinine 0.48 L (0.66-1.25) mg/dL POC Glucose (mg/dL) 137 H (75-99) mg/dL Magnesium (1.6-2.3) mg/dL Ammonia (<30) umol/L Total Protein (6.3-8.2) g/dL Albumin (3.5-5.0) g/dL 06/11/18 06/11/18 06/11/18 Range/Units 00:09 04:10 04:10 WBC 17.6 H (3.8-10.6) k/uL RBC 2.80 L (4.30-5.90) m/uL Hgb 7.7 L (13.0-17.5) gm/dL Hct 24.9 L (39.0-53.0) % MCHC 30.9 L (31.0-37.0) g/dL RDW 19.3 H (11.5-15.5) % Neutrophils # 15.2 H (1.3-7.7) k/uL ABG pCO2 (35-45) mmHg ABG pO2 (83-108) mmHg ABG HCO3 (21-25) mmol/L ABG Total CO2 (19-24) mmol/L ABG O2 Saturation (94-97) % Potassium 3.3 L (3.5-5.1) mmol/L Carbon Dioxide 44 H* (22-30) mmol/L BUN (9-20) mg/dL Creatinine 0.50 L (0.66-1.25) mg/dL POC Glucose (mg/dL) 114 H (75-99) mg/dL Magnesium (1.6-2.3) mg/dL Ammonia (<30) umol/L Total Protein 5.1 L (6.3-8.2) g/dL Albumin 2.2 L (3.5-5.0) g/dL 06/11/18 06/11/18 Range/Units 04:10 07:00 WBC (3.8-10.6) k/uL RBC (4.30-5.90) m/uL Hgb (13.0-17.5) gm/dL Hct (39.0-53.0) % MCHC (31.0-37.0) g/dL RDW (11.5-15.5) % Neutrophils # (1.3-7.7) k/uL ABG pCO2 (35-45) mmHg ABG pO2 (83-108) mmHg ABG HCO3 (21-25) mmol/L ABG Total CO2 (19-24) mmol/L ABG O2 Saturation (94-97) % Potassium (3.5-5.1) mmol/L Carbon Dioxide (22-30) mmol/L BUN (9-20) mg/dL Creatinine (0.66-1.25) mg/dL POC Glucose (mg/dL) (75-99) mg/dL Magnesium 1.3 L (1.6-2.3) mg/dL Ammonia 33 H (<30) umol/L Total Protein (6.3-8.2) g/dL Albumin (3.5-5.0) g/dL Microbiology - Last 24 Hours (Table) 06/08/18 14:14 CSF Gram Stain - Preliminary Cerebral Spinal Fluid CSF Culture - Preliminary 06/05/18 12:10 Blood Culture - Preliminary Blood No Growth after 120 hours Assessment and Plan Assessment: Assessment Acute hypoxic and hypercapnic respiratory failure Toxic metabolic encephalopathy, suspect alcohol intoxication Severe lactic acidosis Anion gap metabolic acidosis Severe dehydration Aspiration pneumonia NSTEMI Septic shock Leukocytosis Anemia, normochromic, normocytic Sinus tachycardia History of DVTs and seizure disorder Hyponatremia Nicotine dependence Hyperglycemia Alcohol abuse Plan Continue in ICU on BiPap, wean as tolerated Continue to monitor and replace electrolytes per protocol Titrate FiO2 to keep oxygen saturations greater than 88% Levophed to maintain map greater than 65, systolic blood pressure greater than 90 CVP monitoring and central line Blood, urine, sputum cultures pending Antibiotics: ID on consult Monitor urine output and renal function Insulin sliding scale and Accu-Cheks Duo nebs and Pulmicort CIWA protocol Monitor and replace electrolytes Maintenance IV fluids at 40 mL per hour GI and DVT prophylaxis Consult PT and OT for early mobility Thiamine, folate, multivitamin Seizure and aspiration precautions ID, Neuro and cardio on consult Advance diet as tolerated Encourage IS Patient's mother at bedside is updated to patient's condition, plan of care I performed an examination of the patient and discussed their management with the nurse practitioner. I have reviewed the nurse practitioner's note and agree with the documented findings and plan of care.
[2018-06-11] MEDS ORDERED: VANCOMYCIN TROUGH DUE 1 EACH MISC MISCELLANE ONE (11:00)
[2018-06-11 11:38] LABS: Glucose,Whole Blood 101 mg/dL (75-99)
[2018-06-11] MEDS: methylPREDNISolone SOD SUCCI 125 MG/2 ML VIAL IV SCH ×2 (12:15→18:44)
[2018-06-11] MEDS: THIAMINE 100 MG TAB PO SCH (12:18)
[2018-06-11] MEDS ORDERED: FUROSEMIDE 10 MG/ML 4 ML VIAL IV STA (12:45)
[2018-06-11] MEDS: guaiFENesin 600 MG TABLET.ER PO SCH ×2 (13:27→20:07)
[2018-06-11] MEDS ORDERED: MAGNESIUM SULFATE-D5W PMX 1 GM in DEXTROSE/WATER 1 100ML.BAG IVPB ONE (15:41)
[2018-06-11 18:04] LABS: Glucose,Whole Blood 193 mg/dL (75-99)
--- NOTE | 2018-06-11 19:30 | P.PN ---
Subjective Progress Note Date: 06/11/18 This patient is a 52-year-old male who is seen today in the intensive care unit for altered mental status and obtundation. Patient was extubated off of the ventilator this morning. He is currently on BiPAP and seems to be doing fairly well. It was recommended the patient to undergo a lumbar puncture for further evaluation of sepsis. Lumbar puncture was completed today by anesthesia. His spinal fluid results came back negative for any signs of [employer] infection. Patient continues on his CIWA protocol. He is receiving Unasyn and vancomycin for antibiotic coverage. Infectious disease is also following. As noted his spinal tap was completed today results are essentially negative for any evidence of [employer] infection. Cytology results are still pending. His C. difficile study came back negative. He did undergo routine EEG today which is reviewed and reveals severe slowing with background activity of 4-5 Hz with no epileptiform discharges. We reviewed all of these test results today in detail with the patient's mother who was at bedside in the intensive care unit. Patient's mother was at bedside and she was updated on his improvement in his neurological status following extubation today. Patient initially tolerated extubation quite well but then did show signs of respiratory decompensation. His oxygen saturation did fall and he was laced on BiPAP for a short time. He is now been able to get off of BiPAP and is only having nasal cannula oxygen for further management. The patient is doing much better after extubation. He is much more awake and alert today. His mother was at bedside and she was updated on his improvement today in general. He is able to answer all questions appropriately. We did check on his recent spinal fluid cytology report which did come back negative. We updated the mother as well as the patient. He was seen by cardiology and he has had no further episodes of bradycardia. His echocardiogram revealed normal LV function with an ejection fraction of 60% with no evidence of any valvular abnormalities. Patient did have a repeat EEG today which was reviewed. EEG shows significant improvement from his initial study that was done on 06/08/2018. Background is now 7-8 Hz. We have reviewed all of these test results in detail today with the patient and his mother at bedside. We will continue close neurological follow-up for this patient in the ICU setting. His overall prognosis at this time remains guarded. Objective - Vital Signs Vital signs: Vital Signs Temp 99.3 F 07/17/18 12:00 Pulse 72 06/11/18 15:27 Resp 18 06/11/18 15:00 BP 120/74 06/11/18 08:00 Pulse Ox 95 06/11/18 15:00 Intake & Output 06/10/18 06/11/18 06/11/18 18:59 06:59 18:59 Intake Total 1163.137 776 4858 Output Total 3905 2380 3890 Balance -2741.591 -1399 -8740 Weight 92.8 kg 88.4 kg Intake: IV 795 882 930 0.9 for pressure bag 45 72 30 Ampicillin-Sulbactam 3 gm 100 200 100 In Sodium Chloride 0.9% 100 ml @ 100 mls/hr IVPB Q6HR [facility] Rx#:[id number] Ascorbic Acid Inj 1,500 200 mg In Sodium Chloride 0.9 % 100 ml @ 103 mls/hr IVPB Q6H [facility] Rx#: [id number] Magnesium Sulfate-D5w Pmx 200 1 gm In Dextrose/Water 1 100ml.bag @ 100 mls/hr IVPB Q1H [facility] Rx#: [id number] Sodium Chloride 0.9% 1, 350 360 30 000 ml @ 100 mls/hr IV . BY DURATION [facility] Rx#: [id number] Sodium Chloride 0.9% 1, 320 000 ml @ 40 mls/hr IV . Q24H [facility] Rx#:[id number] Thiamine 200 mg In Sodium 100 Chloride 0.9% 100 ml @ 200 mls/hr IVPB Q12HR [facility] Rx#:[id number] Vancomycin 1,500 mg In 250 250 Sodium Chloride 0.9% 250 ml @ 125 mls/hr IVPB Q8H [facility] Rx#:[id number] Intake, IV Titration 113.409 100 100 Amount Potassium Chloride 20 meq 100 100 In Water For Injection 1 100ml.bag @ 50 mls/hr IVPB Q2H [facility] Rx#: [id number] Propofol 1,000 mg In 113.409 Empty Bag 1 bag @ Titrate IV .Q0M [facility] Rx#: [id number] Oral 620 Tube Feeding 150 Other 105 Output: Urine 3900 2380 3890 Stool 5 Other: Voiding Method Indwelling Catheter Indwelling Catheter Indwelling Catheter ABP, PAP, CO, CI - Last Documented Arterial Blood Pressure 123/55 - Exam Physical examination: PHYSICAL EXAMINATION: Patient was extubated today and he is currently on BiPAP. VITAL SIGNS: Blood pressure is [117/79]. Heart rate is [85]. Respiration is [20] . Temperature is [98.4]. HEENT: Head is atraumatic, neck is supple, there were no carotid bruits. CHEST: Lungs are clear to auscultation and percussion. CARDIAC: S1, S2 normal rate and rhythm. There is no murmur. ABDOMEN: Soft and nontender. Bowel sounds are present. EXTREMITIES: There is no pedal edema. Peripheral pulses are present. Neurological examination: Patient was extubated earlier today. He is currently on BiPAP. He is more awake and alert and is following simple commands. Cranial nerves II through XII are grossly intact. Deep tendon reflexes are hypoactive 1+. Plantar responses flexor bilaterally. Coordination and gait cannot be assessed in this patient at this time. - Labs CBC & Chem 7: 06/11/18 04:10 06/11/18 04:10 Labs: Abnormal Lab Results - Last 24 Hours (Table) 06/10/18 06/11/18 06/11/18 Range/Units 18:30 00:09 04:10 WBC (3.8-10.6) k/uL RBC (4.30-5.90) m/uL Hgb (13.0-17.5) gm/dL Hct (39.0-53.0) % MCHC (31.0-37.0) g/dL RDW (11.5-15.5) % Neutrophils # (1.3-7.7) k/uL Potassium 3.4 L 3.3 L (3.5-5.1) mmol/L Carbon Dioxide 43 H* 44 H* (22-30) mmol/L BUN 21 H (9-20) mg/dL Creatinine 0.48 L 0.50 L (0.66-1.25) mg/dL POC Glucose (mg/dL) 114 H (75-99) mg/dL Magnesium (1.6-2.3) mg/dL Ammonia (<30) umol/L Total Protein 5.1 L (6.3-8.2) g/dL Albumin 2.2 L (3.5-5.0) g/dL 06/11/18 06/11/18 06/11/18 Range/Units 04:10 04:10 07:00 WBC 17.6 H (3.8-10.6) k/uL RBC 2.80 L (4.30-5.90) m/uL Hgb 7.7 L (13.0-17.5) gm/dL Hct 24.9 L (39.0-53.0) % MCHC 30.9 L (31.0-37.0) g/dL RDW 19.3 H (11.5-15.5) % Neutrophils # 15.2 H (1.3-7.7) k/uL Potassium (3.5-5.1) mmol/L Carbon Dioxide (22-30) mmol/L BUN (9-20) mg/dL Creatinine (0.66-1.25) mg/dL POC Glucose (mg/dL) (75-99) mg/dL Magnesium 1.3 L (1.6-2.3) mg/dL Ammonia 33 H (<30) umol/L Total Protein (6.3-8.2) g/dL Albumin (3.5-5.0) g/dL 06/11/18 Range/Units 11:36 WBC (3.8-10.6) k/uL RBC (4.30-5.90) m/uL Hgb (13.0-17.5) gm/dL Hct (39.0-53.0) % MCHC (31.0-37.0) g/dL RDW (11.5-15.5) % Neutrophils # (1.3-7.7) k/uL Potassium (3.5-5.1) mmol/L Carbon Dioxide (22-30) mmol/L BUN (9-20) mg/dL Creatinine (0.66-1.25) mg/dL POC Glucose (mg/dL) 101 H (75-99) mg/dL Magnesium (1.6-2.3) mg/dL Ammonia (<30) umol/L Total Protein (6.3-8.2) g/dL Albumin (3.5-5.0) g/dL Microbiology - Last 24 Hours (Table) 06/05/18 12:10 Blood Culture - Final Blood No Growth after 144 hours 06/08/18 14:14 CSF Gram Stain - Preliminary Cerebral Spinal Fluid CSF Culture - Preliminary Assessment and Plan (1) Acute metabolic encephalopathy Current Visit: Yes Status: Acute Code(s): G93.41 - METABOLIC ENCEPHALOPATHY SNOMED Code(s): 20038633 (2) Respiratory failure Current Visit: Yes Status: Acute Code(s): J96.90 - RESPIRATORY FAILURE, UNSP , UNSP W HYPOXIA OR HYPERCAPNIA SNOMED Code(s): 892373776 (3) Sepsis Current Visit: Yes Status: Acute Code(s): A41.9 - SEPSIS, UNSPECIFIED ORGANISM SNOMED Code(s): 08094176 (4) Alcohol dependence with withdrawal Current Visit: No Status: Acute Code(s): F10.239 - ALCOHOL DEPENDENCE WITH WITHDRAWAL, UNSPECIFIED SNOMED Code(s): 69348441 (5) Seizure disorder Current Visit: No Status: Acute Code(s): G40.909 - EPILEPSY, UNSP, NOT INTRACTABLE, WITHOUT STATUS EPILEPTICUS SNOMED Code(s): 992469132 Plan: This patient is a 52-year-old male who was initially admitted to the intensive care unit with acute hypoxic and hypercapnic respiratory failure. He was intubated initially and had been making only very slow progress. Initial EEG performed on 06/08/2018 revealed severe slowing of all EEG background activity. Patient was extubated this morning and is making very good progress and is showing significant improvement in his mental status. He had a follow-up EEG today for comparison which show significant improvement as compared to previous study. This patient does have history of underlying toxic metabolic encephalopathy and alcohol intoxication. He has had no evidence of seizure activity. He was placed on a CIWA protocol and has been able to adhere to his current status. We did review his recent CSF cytology report which did come back negative. He continues to show significant improvement in his mental status since yesterday. Overall the patient seems to be making very good recovery. He should continue on thiamine, folate, and multivitamin. We will continue to follow his progress closely for any further changes in his overall mental status. His overall prognosis at this time remains guarded. Case was discussed today at length with the patient's mother was at bedside in the ICU. All of her questions were answered. She is happy with his significant improvement today and she will continue to follow along with us. This patient' s overall prognosis at this time remains guarded.
[2018-06-11 20:03] LABS: Glucose,Whole Blood 201 mg/dL (75-99)
[2018-06-11] MEDS: SODIUM CHLORIDE 0.9% 1,000 ML IV SCH (20:05)
[2018-06-11] MEDS: FUROSEMIDE 10 MG/ML 2 ML VIAL IV SCH (20:06)
[2018-06-11] MEDS: MONTELUKAST 10 MG TAB PO SCH (20:08)
[2018-06-11 20:31] LABS: Magnesium 1.6 mg/dL (1.6-2.3); Potassium 3.4 mmol/L (3.5-5.1)
[2018-06-11] MEDS: POTASSIUM CHLORIDE ER 20 MEQ TAB.ER PO SCH ×2 (21:39→22:39)
--- NOTE | 2018-06-11 21:44 | EEG ---
ELECTROENCEPHALOGRAM REPORT DATE OF EE06/11/2018. REFERRING PHYSICIAN: Dr. Jamarcus Duque. CONSULTING/INTERPRETING PHYSICIAN: Dr. Simone Granado MD ELECTROENCEPHALOGRAPHIC EXAMINATION REPORT: INDICATION FOR EXAMINATION: This patient is a 52-year-old male, had admitted to the intensive care unit with severe sepsis and hypotension. The patient now extubated and showing signs of improvement in mental status. This is a followup EEG for comparison. AGE: 52. EEG FINDINGS: A routine 21 channel awake digital EEG recording was accomplished utilizing the 10-20 international system with bipolar and referential montages. The background activity in the most alert resting state consists of a low to medium amplitude, fairly well- developed and well sustained 7 Hz activity over the posterior head regions. This posterior rhythm attenuates to eye opening. There is a small amount of low amplitude 18-20 Hz beta activity seen maximally over the anterior head regions. Muscle and movement artifact was observed on several occasions during the tracing. Hyperventilation was not performed. Photic stimulation at flash frequencies of 2-30 Hz produced a good symmetrical occipital driving response. No epileptiform discharges were seen. IMPRESSION: This EEG is mildly abnormal in a diffuse fashion due to slowing of the EEG background. The EEG failed to reveal any focal, lateralized, or epileptiform abnormalities. Compared to his previous EEG, there is improvement in the EEG background. Clinical correlation is recommended. MMJUDITHL / IJN: [id number] /
--- NOTE | 2018-06-11 23:29 | PN ---
PROGRESS NOTE SUBJECTIVE: A 52-year-old white male with acute respiratory failure, sepsis secondary to bilateral pneumonia. Patient is improved with IV antibiotics, has been weaned off the ventilator. He has agreed to order inpatient rehabilitation at [facility]. Discharge Planning to help the mom to get him into [facility]. VITAL SIGNS: Stable, afebrile. CARDIOVASCULAR: S1, S2. LUNGS: rhonchi and wheezing. HEMATOLOGY: Negative Homans'. PSYCH: Fair mood and affect. ASSESSMENT: 1. Aspiration pneumonia. 2. Alcohol withdrawal. 3. Acute respiratory failure. 4. Non ST-elevation myocardial infarction. Continue current treatment in the next 24-48 hours. ICU TIME: 30 minutes. ANGELICA / MARTÍNN: [id number] /
[2018-06-12] MEDS ORDERED: IPRATROPIUM-ALBUTEROL 3 ML NEB ONE ×2
[2018-06-12] MEDS ORDERED: methylPREDNISolone SOD SUCCI 125 MG/2 ML VIAL ONE
[2018-06-12] MEDS ORDERED: HEPARIN SODIUM,PORCINE 5,000 UNIT/ML 1 ML VIAL ONE
[2018-06-12] MEDS: IPRATROPIUM-ALBUTEROL 3 ML NEB INHALATION SCH ×7 (03:25→23:15)
[2018-06-12] MEDS: methylPREDNISolone SOD SUCCI 125 MG/2 ML VIAL IV SCH ×4 (04:11→17:09)
[2018-06-12] MEDS: AMPICILLIN-SULBACTAM 3 GM in SODIUM CHLORIDE 0.9% 100 ML IVPB SCH ×4 (04:11→17:15)
[2018-06-12] MEDS: HEPARIN SODIUM,PORCINE 5,000 UNIT/ML 1 ML VIAL SQ SCH ×3 (04:11→17:07)
[2018-06-12] MEDS: VANCOMYCIN 1,500 MG in SODIUM CHLORIDE 0.9% 250 ML IVPB SCH (04:29)
[2018-06-12 05:15] LABS: ALT 50 U/L (21-72); AST 36 U/L (17-59); Albumin 2.2 g/dL (3.5-5.0); Alkaline Phosphatase 59 U/L (38-126); Blood Urea Nitrogen 17 mg/dL (9-20); Calcium 7.9 mg/dL (8.4-10.2); Chloride 88 mmol/L (98-107); Glucose 144 mg/dL (74-99); Magnesium 1.7 mg/dL (1.6-2.3); Potassium 3.8 mmol/L (3.5-5.1); Sodium 135 mmol/L (137-145); Total Bilirubin 0.2 mg/dL (0.2-1.3)
[2018-06-12 05:21] LABS: Anion Gap 0 mmol/L
[2018-06-12 05:30] LABS: Carbon Dioxide 47 mmol/L (22-30)
[2018-06-12 05:33] LABS: Anisocytosis Slight; HCT 23.3 % (39.0-53.0); HGB 7.2 gm/dL (13.0-17.5); MCHC 30.9 g/dL (31.0-37.0); MCV 87.3 fL (80.0-100.0); Mean Platelet Volume 7.1; Platelet Count 347 k/uL (150-450); RBC 2.67 m/uL (4.30-5.90); RDW 19.4 % (11.5-15.5); WBC 10.7 k/uL (3.8-10.6)
[2018-06-12] MEDS: MAGNESIUM SULFATE-D5W PMX 1 GM in DEXTROSE/WATER 1 100ML.BAG IVPB SCH ×4 (05:58→20:34)
[2018-06-12] MEDS ORDERED: POTASSIUM CHLORIDE ER 20 MEQ TAB.ER PO SCH ×2 (06:00→19:00)
[2018-06-12 06:36] LABS: Band Neutrophils % 2 %; Lymphocytes # (M) 1.18 k/uL (1.0-4.8); Neutrophils % (M) 87 %; Nucleated Red Blood Cells 0 /100 WBC (0-0); Total Cells Counted 100
[2018-06-12 07:06] LABS: Glucose,Whole Blood 167 mg/dL (75-99)
[2018-06-12] MEDS: INSULIN ASPART 100 UNIT/ML 1 ML 10 ML VIAL SQ SCH ×8 (07:25→21:34)
--- NOTE | 2018-06-12 08:13 | XR ---
EXAMINATION TYPE: XR chest 1V portable DATE OF EXAM: 06/12/2018 CLINICAL HISTORY: Difficulty breathing progress study. TECHNIQUE: Single AP portable semiupright view of the chest is obtained. COMPARISON: Chest x-ray from one day earlier and older studies. FINDINGS: There is redemonstration of right internal jugular central venous catheter. There is backg round mild cardiomegaly with central vascular congestion and bibasilar opacities felt to reflect infi ltrate and/or atelectasis. Small bilateral pleural effusions are likely present. More dense consolida tion right lower lobe is again seen. There is left upper lobe nodular consolidation redemonstrated. L eft posterior lateral lower rib fractures are less well seen. IMPRESSION: Persistent mild cardiomegaly with small bilateral pleural effusions and scattered areas o f infiltrate and/or atelectasis most prominent in the lower lungs with most dense consolidation seen in the right middle and lower lobe silhouetting right heart border and hemidiaphragm. No significant change from one day earlier. Progression in bilateral multilobar involvement since older studies note d.
[2018-06-12] MEDS: BUDESONIDE 0.5 MG/2 ML NEBU INHALATION SCH (08:40)
--- NOTE | 2018-06-12 09:56 | P.PN ---
Subjective Progress Note Date: 06/12/18 History of present illness: This is a 52-year-old gentleman who [facility] History is unable to be obtained from the patient as he is sedated on the ventilator. Per the emergency room note the patient was found unresponsive and EMS was called. The Patient's O2 saturation was 50%. He had minimal improvement on nonrebreather. The patient was to Make an hypoxic and subsequently intubated in the emergency room. The patient was found to have an elevated lactic acid of 12.6. He was profoundly acidotic with a pH of less than 7.0. The patient was hypotensive and started on Levophed. He is currently on 6 mcg/m of Levophed. He is having a large amount of green and secretions from the ET tube. It is assumed the patient aspirated. The patient is on 100% FiO2 and PEEP of 8. Bronchoscopy is performed to clear secretions. The patient has been given 2 L of IV fluids in the emergency room. He has maintenance fluids running at 100 mL per hour. He does intermittently respond to commands. The patient is a known alcoholic. He has had multiple admissions for alcohol intoxication and subsequently go through withdrawals. The patient has refused alcohol rehab in the past. The patient has required BiPAP in the past. He does drink about a pound of vodka daily. The patient's chest x-ray shows right lower lobe infiltrate. EKG shows sinus tachycardia. He also has slightly elevated troponins. Interval History: 06/06/18- patient is being seen examined and evaluated today on rounds. He is on mechanical ventilation with propofol for sedation. Current mechanical ventilation settings are assist control mode with a respiratory rate of 20, tidal volume of 550, FiO2 of 70%, and a PEEP of 8. Currently he is on Levophed at 8 mics, and propofol at 30 mics. OG tube has green bile like output, ET tube continues to have green tea-like secretions. He has been making urine. He has got a total of 4 L of fluid resuscitation. His ABGs from this morning reveal a pH of 7.33, pCO2 of 55, pO2 of 85 and HCO3 of 29. Dietary is on board and will be starting tube feeds today. His potassium is 3.5 is being replaced his magnesium is 1.3 and being replaced. His chest x-ray was reviewed and lines are stable ET tube can be advanced to 3 cm. He has a persistent right loculated pleural effusion and a trace left pleural effusion. Infectious disease has been consulted. He continues on antibiotics. Mother is at bedside updated on plan of care. No plans for extubation today. 06/07/18- patient is being seen examined and evaluated today on rounds in the intensive care unit. Patient continues on mechanical ventilation with propofol for sedation. Current mechanical ventilator settings are assist-control mode with respiratory rate of 20, tidal volume of 550, FiO2 80%, and a PEEP of 8. Patient's blood gases from this morning reveal a pH of 7.38 pCO2 of 55, pO2 of 67, and HCO3 of 33. The ABGs were done on 70% of FiO2 and were titrated up to 80% after that. He did know to have a slight increase in his temperature this morning and Ofirmev given. He also was noted to be tachycardiac and Ativan was given for the CIWA protocol. He continues to have moderate amount of secretions from ET tube. He has been tolerating his tube feedings. He has been making good urine approximately 70 per hour. Infectious disease did see the patient yesterday. His ammonia also did improve to 31 today. 06/08/18 to 06/10/[address] Velazquez's notes for coverage 06/11/18- patient is being seen examined and evaluated today on rounds. He is resting up in bed on BiPAP, BiPAP settings are IPAP of 15, EPAP of 10, FiO2 70% . He is noted to have oxygen desaturations with removal of the BiPAP. He has taken it off intermittently for quick sips of water without issues. He has no issues with swallowing water. He has been making good urine. He is alert and active. Mother at bedside. Electrolytes being replaced. Chest x-ray has been reviewed. His hemoglobin is 7.7 today. He is afebrile denies any further complaints. 06/12/18- patient is being seen examined and evaluated today on rounds in the intensive care unit. The patient was discharged in addition from BiPAP to high flow airflow, currently he has an O2 flow rate of 50 L with an FiO2 of 55%, RT continues to wean down as tolerated. He did have an elevated CO2 this morning of 47 and Diamox has been started for that. His WBC count has improved to 10.7 today. His hemoglobin is stable at 7.2overt signs of bleeding. He has been tolerating his food and fluids. His mother is at bedside and updated on plan of care. He has not required any vasopressors. His respiratory status slowly improved. Electrolytes continued to be monitored and replaced. Objective - Vital Signs Vital signs: Vital Signs Temp 98.3 F 06/12/18 00:00 Pulse 106 H 06/12/18 08:51 Resp 17 06/12/18 08:00 BP 111/72 06/12/18 08:00 Pulse Ox 90 L 06/12/18 08:00 Intake & Output 06/11/18 06/12/18 06/12/18 18:59 06:59 18:59 Intake Total 2076 2406 386 Output Total 4240 2075 175 Balance -2164 331 211 Weight 88.1 kg Intake: IV 1116 1166 146 0.9 for pressure bag 36 36 6 Ampicillin-Sulbactam 3 gm 200 100 In Sodium Chloride 0.9% 100 ml @ 100 mls/hr IVPB Q6HR [facility] Rx#:[id number] Magnesium Sulfate-D5w Pmx 300 100 1 gm In Dextrose/Water 1 100ml.bag @ 100 mls/hr IVPB ONCE ONE Rx#: [id number] Magnesium Sulfate-D5w Pmx 200 1 gm In Dextrose/Water 1 100ml.bag @ 100 mls/hr IVPB Q1H [facility] Rx#: [id number] Sodium Chloride 0.9% 1, 30 000 ml @ 100 mls/hr IV . BY DURATION [facility] Rx#: [id number] Sodium Chloride 0.9% 1, 400 480 40 000 ml @ 40 mls/hr IV . Q24H [facility] Rx#:[id number] Vancomycin 1,500 mg In 250 250 Sodium Chloride 0.9% 250 ml @ 125 mls/hr IVPB Q8H [facility] Rx#:[id number] Intake, IV Titration 100 Amount Potassium Chloride 20 meq 100 In Water For Injection 1 100ml.bag @ 50 mls/hr IVPB Q2H [facility] Rx#: [id number] Oral 860 1240 240 Output: Urine 4240 2075 175 Other: Voiding Method Indwelling Catheter Indwelling Catheter ABP, PAP, CO, CI - Last Documented Arterial Blood Pressure 97/55 - Exam GENERAL EXAM: Alert, active, comfortable in no apparent distress on high flow airvo. HEAD: Normocephalic. EYES: Normal reaction of pupils, equal size. NOSE: Clear with pink turbinates. THROAT: No erythema or exudates. NECK: No masses, no JVD. CHEST: No chest wall deformity. LUNGS: Lungs noted to be coarse throughout with some scattered rhonchi CVS: S1 and S2 normal with no audible mumurs, regular rhythm. ABDOMEN: No hepatosplenomegaly, normal bowel sounds, no guarding or rigidity. EXTREMITIES: no edema noted, pedal pulses palpable. CENTRAL NERVOUS SYSTEM: No focal deficits, tone is normal in all 4 extremities. - Labs CBC & Chem 7: 06/12/18 04:35 06/12/18 04:35 Labs: Abnormal Lab Results - Last 24 Hours (Table) 06/11/18 06/11/18 06/11/18 Range/Units 11:36 18:02 19:56 WBC (3.8-10.6) k/uL RBC (4.30-5.90) m/uL Hgb (13.0-17.5) gm/dL Hct (39.0-53.0) % MCHC (31.0-37.0) g/dL RDW (11.5-15.5) % Neutrophils # (Manual) (1.3-7.7) k/uL Sodium (137-145) mmol/L Potassium 3.4 L (3.5-5.1) mmol/L Chloride (98-107) mmol/L Carbon Dioxide (22-30) mmol/L Creatinine (0.66-1.25) mg/dL Glucose (74-99) mg/dL POC Glucose (mg/dL) 101 H 193 H (75-99) mg/dL Calcium (8.4-10.2) mg/dL Total Protein (6.3-8.2) g/dL Albumin (3.5-5.0) g/dL 06/11/18 06/12/18 06/12/18 Range/Units 20:02 04:35 04:35 WBC 10.7 H (3.8-10.6) k/uL RBC 2.67 L (4.30-5.90) m/uL Hgb 7.2 L (13.0-17.5) gm/dL Hct 23.3 L (39.0-53.0) % MCHC 30.9 L (31.0-37.0) g/dL RDW 19.4 H (11.5-15.5) % Neutrophils # (Manual) 9.50 H (1.3-7.7) k/uL Sodium 135 L (137-145) mmol/L Potassium (3.5-5.1) mmol/L Chloride 88 L (98-107) mmol/L Carbon Dioxide 47 H* (22-30) mmol/L Creatinine 0.50 L (0.66-1.25) mg/dL Glucose 144 H (74-99) mg/dL POC Glucose (mg/dL) 201 H (75-99) mg/dL Calcium 7.9 L (8.4-10.2) mg/dL Total Protein 5.0 L (6.3-8.2) g/dL Albumin 2.2 L (3.5-5.0) g/dL 06/12/18 Range/Units 07:04 WBC (3.8-10.6) k/uL RBC (4.30-5.90) m/uL Hgb (13.0-17.5) gm/dL Hct (39.0-53.0) % MCHC (31.0-37.0) g/dL RDW (11.5-15.5) % Neutrophils # (Manual) (1.3-7.7) k/uL Sodium (137-145) mmol/L Potassium (3.5-5.1) mmol/L Chloride (98-107) mmol/L Carbon Dioxide (22-30) mmol/L Creatinine (0.66-1.25) mg/dL Glucose (74-99) mg/dL POC Glucose (mg/dL) 167 H (75-99) mg/dL Calcium (8.4-10.2) mg/dL Total Protein (6.3-8.2) g/dL Albumin (3.5-5.0) g/dL Microbiology - Last 24 Hours (Table) 06/08/18 14:14 CSF Gram Stain - Preliminary Cerebral Spinal Fluid CSF Culture - Preliminary 06/05/18 12:10 Blood Culture - Final Blood No Growth after 144 hours Assessment and Plan Assessment: Assessment Acute hypoxic and hypercapnic respiratory failure Toxic metabolic encephalopathy, suspect alcohol intoxication Severe lactic acidosis Anion gap metabolic acidosis Severe dehydration Aspiration pneumonia NSTEMI Septic shock Leukocytosis Anemia, normochromic, normocytic Sinus tachycardia History of DVTs and seizure disorder Hyponatremia Nicotine dependence Hyperglycemia Alcohol abuse Plan Continue in ICU on high flow airvo wean as tolerated Diamox added for high CO2 level Continue to monitor and replace electrolytes per protocol Titrate FiO2 to keep oxygen saturations greater than 88% Levophed to maintain map greater than 65, systolic blood pressure greater than 90 CVP monitoring and central line Blood, urine, sputum cultures reviewed Antibiotics: ID on consult Monitor urine output and renal function Insulin sliding scale and Accu-Cheks Duo nebs and Pulmicort IV steroids CIWA protocol Monitor and replace electrolytes Maintenance IV fluids at 40 mL per hour GI and DVT prophylaxis Consult PT and OT for early mobility Thiamine, folate, multivitamin Seizure and aspiration precautions ID, Neuro and cardio on consult Advance diet as tolerated Encourage IS Patient's mother at bedside is updated to patient's condition, plan of care I performed an examination of the patient and discussed their management with the nurse practitioner. I have reviewed the nurse practitioner's note and agree with the documented findings and plan of care.
--- NOTE | 2018-06-12 10:39 | PN ---
PROGRESS NOTE DATE OF SERVICE: 06/11/2018 REASON FOR FOLLOWUP: Aspiration pneumonia. INTERVAL HISTORY: The patient is afebrile. He has been extubated. He remains to be lethargic though. No nausea, vomiting or diarrhea has been reported. PHYSICAL EXAMINATION: On examination, blood pressure is 114/57 with a pulse of 65, temperature 98.3. He is 92% on high-flow oxygen. General description is a middle-aged male lying in bed in no distress. RESPIRATORY SYSTEM: Unlabored breathing, some coarse breath sounds at bases. No wheeze. HEART: S1, S2. Regular rate and rhythm. ABDOMEN: Soft, no tenderness. EXTREMITIES: No edema of the feet. LABS: Hemoglobin 7.7, white count 17.6. BUN of 20, creatinine 0.50. DIAGNOSTIC IMPRESSION AND PLAN: Patient with a component of aspiration pneumonia so far bronch and sputum culture has been negative. Currently to continue patient on Unasyn. Discontinue the vancomycin and watch his clinical course closely. MMODL / IJN: [id number] /
[2018-06-12] MEDS: acetaZOLAMIDE 250 MG TAB PO SCH ×2 (10:54→20:37)
[2018-06-12] MEDS: FUROSEMIDE 10 MG/ML 2 ML VIAL IV SCH ×2 (10:54→21:28)
[2018-06-12] MEDS: PANTOPRAZOLE 40 MG/10 ML VIAL IV SCH (10:55)
[2018-06-12] MEDS: guaiFENesin 600 MG TABLET.ER PO SCH ×2 (10:55→21:28)
[2018-06-12 12:07] LABS: Glucose,Whole Blood 210 mg/dL (75-99)
[2018-06-12] MEDS: THIAMINE 100 MG TAB PO SCH (12:31)
[2018-06-12 13:06] LABS: Glucose,Whole Blood 281 mg/dL (75-99)
[2018-06-12 16:58] LABS: Glucose,Whole Blood 191 mg/dL (75-99)
[2018-06-12 18:13] LABS: Magnesium 1.5 mg/dL (1.6-2.3); Potassium 3.8 mmol/L (3.5-5.1)
[2018-06-12] MEDS ORDERED: Potassium Replacement Protocol 1 EACH MISC MISCELLANE PRN (18:28)
[2018-06-12] MEDS ORDERED: Magnesium Replacement Protocol 1 EACH MISC MISCELLANE PRN (18:29)
[2018-06-12] MEDS: BUDESONIDE 1 MG/2 ML NEBU INHALATION SCH (19:52)
[2018-06-12] MEDS ORDERED: BUDESONIDE 0.5 MG/2 ML NEBU INHALATION SCH (20:00)
[2018-06-12] MEDS: ACETAMINOPHEN TAB 325 MG TAB PO PRN (20:35)
[2018-06-12] MEDS: MONTELUKAST 10 MG TAB PO SCH (20:37)
[2018-06-12] MEDS: SODIUM CHLORIDE 0.9% 1,000 ML IV SCH (21:27)
[2018-06-12 21:33] LABS: Glucose,Whole Blood 214 mg/dL (75-99)
--- NOTE | 2018-06-12 22:44 | P.PN ---
Subjective Progress Note Date: 06/12/18 This patient is a 52-year-old male who is seen today in the intensive care unit for altered mental status and obtundation. Patient was extubated off of the ventilator this morning. He is currently on BiPAP and seems to be doing fairly well. It was recommended the patient to undergo a lumbar puncture for further evaluation of sepsis. Lumbar puncture was completed today by anesthesia. His spinal fluid results came back negative for any signs of [employer] infection. Patient continues on his CIWA protocol. He is receiving Unasyn and vancomycin for antibiotic coverage. Infectious disease is also following. As noted his spinal tap was completed today results are essentially negative for any evidence of [employer] infection. Cytology results are still pending. His C. difficile study came back negative. He did undergo routine EEG today which is reviewed and reveals severe slowing with background activity of 4-5 Hz with no epileptiform discharges. We reviewed all of these test results today in detail with the patient's mother who was at bedside in the intensive care unit. Patient's mother was at bedside and she was updated on his improvement in his neurological status following extubation today. Patient initially tolerated extubation quite well but then did show signs of respiratory decompensation. His oxygen saturation did fall and he was laced on BiPAP for a short time. He is now been able to get off of BiPAP and is only having nasal cannula oxygen for further management. The patient is doing much better after extubation. He is much more awake and alert today. His mother was at bedside and she was updated on his improvement today in general. He is able to answer all questions appropriately. We did check on his recent spinal fluid cytology report which did come back negative. We updated the mother as well as the patient. He was seen by cardiology and he has had no further episodes of bradycardia. His echocardiogram revealed normal LV function with an ejection fraction of 60% with no evidence of any valvular abnormalities. Patient did have a repeat EEG today which was reviewed. EEG shows significant improvement from his initial study that was done on 06/08/2018. Background is now 7-8 Hz. We have reviewed all of these test results in detail today with the patient and his mother at bedside. The patient is very much awake today in the ICU. He is answering all questions appropriately. According to his mother he has made a tremendous improvement in his overall condition since admission to the hospital. We will continue close neurological follow-up for this patient in the ICU setting. His overall prognosis at this time remains guarded. Objective - Vital Signs Vital signs: Vital Signs Temp 98.4 F 06/12/18 12:00 Pulse 110 H 06/12/18 13:00 Resp 16 06/12/18 13:00 BP 111/72 06/12/18 08:00 Pulse Ox 91 L 06/12/18 13:00 Intake & Output 06/11/18 06/12/18 06/12/18 18:59 06:59 18:59 Intake Total 2076 2406 506 Output Total 4240 2075 260 Balance -2164 331 246 Weight 88.1 kg Intake: IV 1116 1166 266 0.9 for pressure bag 36 36 6 Ampicillin-Sulbactam 3 gm 200 100 In Sodium Chloride 0.9% 100 ml @ 100 mls/hr IVPB Q6HR [facility] Rx#:[id number] Magnesium Sulfate-D5w Pmx 300 100 1 gm In Dextrose/Water 1 100ml.bag @ 100 mls/hr IVPB ONCE ONE Rx#: [id number] Magnesium Sulfate-D5w Pmx 200 1 gm In Dextrose/Water 1 100ml.bag @ 100 mls/hr IVPB Q1H [facility] Rx#: [id number] Sodium Chloride 0.9% 1, 30 000 ml @ 100 mls/hr IV . BY DURATION [facility] Rx#: [id number] Sodium Chloride 0.9% 1, 400 480 160 000 ml @ 40 mls/hr IV . Q24H [facility] Rx#:[id number] Vancomycin 1,500 mg In 250 250 Sodium Chloride 0.9% 250 ml @ 125 mls/hr IVPB Q8H [facility] Rx#:[id number] Intake, IV Titration 100 Amount Potassium Chloride 20 meq 100 In Water For Injection 1 100ml.bag @ 50 mls/hr IVPB Q2H [facility] Rx#: [id number] Oral 860 1240 240 Output: Urine 4240 2075 260 Other: Voiding Method Indwelling Catheter Indwelling Catheter ABP, PAP, CO, CI - Last Documented Arterial Blood Pressure 95/56 - Exam Physical examination: PHYSICAL EXAMINATION: Patient was extubated today and he is currently on BiPAP. VITAL SIGNS: Blood pressure is [100/53]. Heart rate is [96]. Respiration is [22] . Temperature is [98.3]. HEENT: Head is atraumatic, neck is supple, there were no carotid bruits. CHEST: Lungs are clear to auscultation and percussion. CARDIAC: S1, S2 normal rate and rhythm. There is no murmur. ABDOMEN: Soft and nontender. Bowel sounds are present. EXTREMITIES: There is no pedal edema. Peripheral pulses are present. Neurological examination: Patient is resting comfortably in the ICU today and seems to be in no distress. He is currently on BiPAP. He is more awake and alert and is following simple commands. Cranial nerves II through XII are grossly intact. Deep tendon reflexes are hypoactive 1+. Plantar responses flexor bilaterally. Coordination and gait cannot be assessed in this patient at this time. - Labs CBC & Chem 7: 06/12/18 04:35 06/12/18 17:48 Labs: Abnormal Lab Results - Last 24 Hours (Table) 06/11/18 06/11/18 06/11/18 Range/Units 18:02 19:56 20:02 WBC (3.8-10.6) k/uL RBC (4.30-5.90) m/uL Hgb (13.0-17.5) gm/dL Hct (39.0-53.0) % MCHC (31.0-37.0) g/dL RDW (11.5-15.5) % Neutrophils # (Manual) (1.3-7.7) k/uL Sodium (137-145) mmol/L Potassium 3.4 L (3.5-5.1) mmol/L Chloride (98-107) mmol/L Carbon Dioxide (22-30) mmol/L Creatinine (0.66-1.25) mg/dL Glucose (74-99) mg/dL POC Glucose (mg/dL) 193 H 201 H (75-99) mg/dL Calcium (8.4-10.2) mg/dL Total Protein (6.3-8.2) g/dL Albumin (3.5-5.0) g/dL 06/12/18 06/12/18 06/12/18 Range/Units 04:35 04:35 07:04 WBC 10.7 H (3.8-10.6) k/uL RBC 2.67 L (4.30-5.90) m/uL Hgb 7.2 L (13.0-17.5) gm/dL Hct 23.3 L (39.0-53.0) % MCHC 30.9 L (31.0-37.0) g/dL RDW 19.4 H (11.5-15.5) % Neutrophils # (Manual) 9.50 H (1.3-7.7) k/uL Sodium 135 L (137-145) mmol/L Potassium (3.5-5.1) mmol/L Chloride 88 L (98-107) mmol/L Carbon Dioxide 47 H* (22-30) mmol/L Creatinine 0.50 L (0.66-1.25) mg/dL Glucose 144 H (74-99) mg/dL POC Glucose (mg/dL) 167 H (75-99) mg/dL Calcium 7.9 L (8.4-10.2) mg/dL Total Protein 5.0 L (6.3-8.2) g/dL Albumin 2.2 L (3.5-5.0) g/dL 06/12/18 06/12/18 Range/Units 12:05 13:05 WBC (3.8-10.6) k/uL RBC (4.30-5.90) m/uL Hgb (13.0-17.5) gm/dL Hct (39.0-53.0) % MCHC (31.0-37.0) g/dL RDW (11.5-15.5) % Neutrophils # (Manual) (1.3-7.7) k/uL Sodium (137-145) mmol/L Potassium (3.5-5.1) mmol/L Chloride (98-107) mmol/L Carbon Dioxide (22-30) mmol/L Creatinine (0.66-1.25) mg/dL Glucose (74-99) mg/dL POC Glucose (mg/dL) 210 H 281 H (75-99) mg/dL Calcium (8.4-10.2) mg/dL Total Protein (6.3-8.2) g/dL Albumin (3.5-5.0) g/dL Microbiology - Last 24 Hours (Table) 06/08/18 14:14 CSF Gram Stain - Preliminary Cerebral Spinal Fluid CSF Culture - Preliminary 06/05/18 12:10 Blood Culture - Final Blood No Growth after 144 hours Assessment and Plan (1) Acute metabolic encephalopathy Current Visit: Yes Status: Acute Code(s): G93.41 - METABOLIC ENCEPHALOPATHY SNOMED Code(s): 96712676 (2) Respiratory failure Current Visit: Yes Status: Acute Code(s): J96.90 - RESPIRATORY FAILURE, UNSP , UNSP W HYPOXIA OR HYPERCAPNIA SNOMED Code(s): 014843898 (3) Sepsis Current Visit: Yes Status: Acute Code(s): A41.9 - SEPSIS, UNSPECIFIED ORGANISM SNOMED Code(s): 79044861 (4) Alcohol dependence with withdrawal Current Visit: No Status: Acute Code(s): F10.239 - ALCOHOL DEPENDENCE WITH WITHDRAWAL, UNSPECIFIED SNOMED Code(s): 58778788 (5) Seizure disorder Current Visit: No Status: Acute Code(s): G40.909 - EPILEPSY, UNSP, NOT INTRACTABLE, WITHOUT STATUS EPILEPTICUS SNOMED Code(s): 039348596 Plan: This patient is a 52-year-old male who was initially admitted to the intensive care unit with acute hypoxic and hypercapnic respiratory failure. He was intubated initially and had been making only very slow progress. Initial EEG performed on 06/08/2018 revealed severe slowing of all EEG background activity. Patient was extubated this morning and is making very good progress and is showing significant improvement in his mental status. He had a follow-up EEG today for comparison which show significant improvement as compared to previous study. This patient does have history of underlying toxic metabolic encephalopathy and alcohol intoxication. He has had no evidence of seizure activity. He was placed on a CIWA protocol and has been able to adhere to his current status. We did review his recent CSF cytology report which did come back negative. He continues to show significant improvement in his mental status since yesterday. Overall the patient seems to be making very good recovery. He should continue on thiamine, folate, and multivitamin. We will continue to follow his progress closely for any further changes in his overall mental status. His overall prognosis at this time remains guarded. Case was discussed today at length with the patient's mother was at bedside in the ICU. All of her questions were answered. She is happy with his significant improvement today and she will continue to follow along with us. Patient may be transferred out of the ICU in the next day or 2. This patient's overall prognosis at this time remains guarded. We will continue close neurological follow-up with this patient the intensive care unit. Case was discussed today at length with his mother at bedside. All of her questions were answered. She is aware of his overall neurological status and improvement in his mental status today.
--- NOTE | 2018-06-12 23:09 | PN ---
PROGRESS NOTE DATE OF SERVICE: 06/12/2018 REASON FOR FOLLOWUP: Aspiration pneumonia. INTERVAL HISTORY: The patient is afebrile. He is more awake and alert. He is breathing comfortably. Denies having any chest pain. Occasional cough. No abdominal pain or any diarrhea. PHYSICAL EXAMINATION: Blood pressure 112/61 with a pulse of 83, temperature 98. He is 93% on high-flow oxygen. General description is a middle-aged male lying in bed in no distress. RESPIRATORY SYSTEM: Unlabored breathing. Decreased breath sounds in the bases. No wheeze. HEART: S1, S2. Regular rate and rhythm. ABDOMEN: Soft. No tenderness. LABS: Hemoglobin is 7.2, white count 10.7. BUN of 17, creatinine 0.50. DIAGNOSTIC IMPRESSION AND PLAN: Patient with acute respiratory failure, multifactorial, in this patient who did have a component of pneumonia, likely aspiration in etiology. The patient at this time is to continue with the Unasyn while waiting for his clinical condition to stabilize. Hopefully will finish therapy with oral antibiotic. Continue with supportive care. ANGELICA / SHAW: [id number] /
[2018-06-13] MEDS: methylPREDNISolone SOD SUCCI 125 MG/2 ML VIAL IV SCH ×3 (00:09→11:28)
[2018-06-13] MEDS: AMPICILLIN-SULBACTAM 3 GM in SODIUM CHLORIDE 0.9% 100 ML IVPB SCH ×4 (00:09→17:34)
[2018-06-13] MEDS: HEPARIN SODIUM,PORCINE 5,000 UNIT/ML 1 ML VIAL SQ SCH ×4 (00:09→22:32)
--- NOTE | 2018-06-13 00:54 | PN ---
PROGRESS NOTE SUBJECTIVE: A 52-year-old white male who has been removed from the ventilator. He is talking. Wants to go to rehab and he is breathing better. His mind is more clear. He is on BiPAP in his bed, FIO2 is 70%, IPAP 15 and EPAP 10. No issues with swallowing. Good urine. Alert and oriented. Hemoglobin 7.7. CARDIOVASCULAR: S1, S2. LUNGS: Transmitted upper sounds, scattered wheeze. HEMATOLOGY: Negative Homans. PSYCH: Fair mood and affect. Blood pressure 111/72, O2 98%, temp 98.3, pulse 106, respiratory rate 16 to 18. ASSESSMENT: 1. Acute hypoxemic hypercapnic respiratory failure, toxic metabolic encephalopathy, severe lactic acidosis. 2. Anion gap metabolic acidosis. 3. Severe dehydration. 4. Aspiration pneumonia. 5. Non STEMI. 6. Septic shock. 7. Anemia normal chromic normocytic. 8. History of DVT. 9. Seizure disorder. 10.Hyponatremia. 11.Nicotine addiction. 12.Alcohol abuse. High-flow oxygen, CPAP, BiPAP, broad-spectrum antibiotics, alcohol FAHAD protocol, planning for rehab center and then go right to our inpatient alcohol rehab facility and possibly jail house. MMODL / IJN: [id number] /
[2018-06-13] MEDS: IPRATROPIUM-ALBUTEROL 3 ML NEB INHALATION SCH ×5 (02:57→20:06)
[2018-06-13 05:06] LABS: Anisocytosis Slight; Basophils % (A) 0 %; Eosinophils % (A) 0 %; HCT 25.4 % (39.0-53.0); HGB 7.8 gm/dL (13.0-17.5); Hypochromasia Slight; Lymphocytes # (A) 0.6 k/uL (1.0-4.8); Lymphocytes % (A) 4 %; MCH 27.3 pg (25.0-35.0); MCHC 30.5 g/dL (31.0-37.0); MCV 89.4 fL (80.0-100.0); Mean Platelet Volume 7.4; Monocytes # (A) 0.3 k/uL (0-1.0); Monocytes % (A) 3 %; Neutrophils # (A) 11.8 k/uL (1.3-7.7); Neutrophils % (A) 92 %; Platelet Count 383 k/uL (150-450); RBC 2.85 m/uL (4.30-5.90); RDW 19.9 % (11.5-15.5); WBC 12.8 k/uL (3.8-10.6)
[2018-06-13 05:15] LABS: ALT 55 U/L (21-72); AST 32 U/L (17-59); Albumin 2.2 g/dL (3.5-5.0); Alkaline Phosphatase 59 U/L (38-126); Anion Gap 6 mmol/L; Blood Urea Nitrogen 16 mg/dL (9-20); Calcium 8.2 mg/dL (8.4-10.2); Carbon Dioxide 38 mmol/L (22-30); Chloride 91 mmol/L (98-107); Glucose 148 mg/dL (74-99); Magnesium 1.5 mg/dL (1.6-2.3); Potassium 3.4 mmol/L (3.5-5.1); Sodium 135 mmol/L (137-145); Total Bilirubin 0.1 mg/dL (0.2-1.3); Total Protein 5.1 g/dL (6.3-8.2)
[2018-06-13] MEDS ORDERED: Potassium Replacement Protocol 1 EACH MISC MISCELLANE PRN (06:24)
[2018-06-13] MEDS ORDERED: Magnesium Replacement Protocol 1 EACH MISC MISCELLANE PRN (06:25)
[2018-06-13] MEDS: MAGNESIUM SULFATE-D5W PMX 1 GM in DEXTROSE/WATER 1 100ML.BAG IVPB SCH ×2 (07:00→11:50)
[2018-06-13 07:04] LABS: Glucose,Whole Blood 145 mg/dL (75-99)
[2018-06-13] MEDS: POTASSIUM CHLORIDE ER 20 MEQ TAB.ER PO SCH ×2 (08:00→11:24)
[2018-06-13] MEDS: BUDESONIDE 1 MG/2 ML NEBU INHALATION SCH ×2 (08:09→20:06)
[2018-06-13] MEDS: INSULIN ASPART 100 UNIT/ML 1 ML 10 ML VIAL SQ SCH ×10 (08:10→22:31)
[2018-06-13] MEDS: acetaZOLAMIDE 250 MG TAB PO SCH (08:12)
[2018-06-13] MEDS: guaiFENesin 600 MG TABLET.ER PO SCH ×2 (08:12→20:12)
[2018-06-13] MEDS: PANTOPRAZOLE 40 MG/10 ML VIAL IV SCH (08:12)
--- NOTE | 2018-06-13 08:13 | XR ---
EXAMINATION TYPE: XR chest 1V portable DATE OF EXAM: 06/13/2018 Comparison: 06/12/2018 Clinical History: 52-year-old male sob Findings: Right IJ CVC tip in the right atrium. Heart borderline enlarged. Slight improving aeration with luis r visualization of the right heart margin. Prominent lower lung opacities, right greater than left pe rsist. Small left effusion demonstrated. Improving aeration at the left upper lung also noted. Impression: Persistent bibasilar consolidation, right greater than left with a small left effusion. Aeration has slightly improved in the interval. There as also been improvement in aeration at the left apex.
[2018-06-13] MEDS: ACETAMINOPHEN TAB 325 MG TAB PO PRN ×2 (08:18→18:47)
--- NOTE | 2018-06-13 09:50 | P.PN ---
<Judith Singletary E - Last Filed: 06/13/18 09:49> Subjective Progress Note Date: 06/13/18 History of present illness: This is a 52-year-old gentleman who is well-known to [facility]. History is unable to be obtained from the patient as he is sedated on the ventilator. Per the emergency room note the patient was found unresponsive and EMS was called. The Patient's O2 saturation was 50%. He had minimal improvement on nonrebreather. The patient was to Make an hypoxic and subsequently intubated in the emergency room. The patient was found to have an elevated lactic acid of 12.6. He was profoundly acidotic with a pH of less than 7.0. The patient was hypotensive and started on Levophed. He is currently on 6 mcg/m of Levophed. He is having a large amount of green and secretions from the ET tube. It is assumed the patient aspirated. The patient is on 100% FiO2 and PEEP of 8. Bronchoscopy is performed to clear secretions. The patient has been given 2 L of IV fluids in the emergency room. He has maintenance fluids running at 100 mL per hour. He does intermittently respond to commands. The patient is a known alcoholic. He has had multiple admissions for alcohol intoxication and subsequently go through withdrawals. The patient has refused alcohol rehab in the past. The patient has required BiPAP in the past. He does drink about a pound of vodka daily. The patient's chest x-ray shows right lower lobe infiltrate. EKG shows sinus tachycardia. He also has slightly elevated troponins. Interval History: 06/06/18- patient is being seen examined and evaluated today on rounds. He is on mechanical ventilation with propofol for sedation. Current mechanical ventilation settings are assist control mode with a respiratory rate of 20, tidal volume of 550, FiO2 of 70%, and a PEEP of 8. Currently he is on Levophed at 8 mics, and propofol at 30 mics. OG tube has green bile like output, ET tube continues to have green tea-like secretions. He has been making urine. He has got a total of 4 L of fluid resuscitation. His ABGs from this morning reveal a pH of 7.33, pCO2 of 55, pO2 of 85 and HCO3 of 29. Dietary is on board and will be starting tube feeds today. His potassium is 3.5 is being replaced his magnesium is 1.3 and being replaced. His chest x-ray was reviewed and lines are stable ET tube can be advanced to 3 cm. He has a persistent right loculated pleural effusion and a trace left pleural effusion. Infectious disease has been consulted. He continues on antibiotics. Mother is at bedside updated on plan of care. No plans for extubation today. 06/07/18- patient is being seen examined and evaluated today on rounds in the intensive care unit. Patient continues on mechanical ventilation with propofol for sedation. Current mechanical ventilator settings are assist-control mode with respiratory rate of 20, tidal volume of 550, FiO2 80%, and a PEEP of 8. Patient's blood gases from this morning reveal a pH of 7.38 pCO2 of 55, pO2 of 67, and HCO3 of 33. The ABGs were done on 70% of FiO2 and were titrated up to 80% after that. He did know to have a slight increase in his temperature this morning and Ofirmev given. He also was noted to be tachycardiac and Ativan was given for the CIWA protocol. He continues to have moderate amount of secretions from ET tube. He has been tolerating his tube feedings. He has been making good urine approximately 70 per hour. Infectious disease did see the patient yesterday. His ammonia also did improve to 31 today. 06/08/18 to 06/10/[address] Velazquez's notes for coverage 06/11/18- patient is being seen examined and evaluated today on rounds. He is resting up in bed on BiPAP, BiPAP settings are IPAP of 15, EPAP of 10, FiO2 70% . He is noted to have oxygen desaturations with removal of the BiPAP. He has taken it off intermittently for quick sips of water without issues. He has no issues with swallowing water. He has been making good urine. He is alert and active. Mother at bedside. Electrolytes being replaced. Chest x-ray has been reviewed. His hemoglobin is 7.7 today. He is afebrile denies any further complaints. 06/12/18- patient is being seen examined and evaluated today on rounds in the intensive care unit. The patient was discharged in addition from BiPAP to high flow airflow, currently he has an O2 flow rate of 50 L with an FiO2 of 55%, RT continues to wean down as tolerated. He did have an elevated CO2 this morning of 47 and Diamox has been started for that. His WBC count has improved to 10.7 today. His hemoglobin is stable at 7.2overt signs of bleeding. He has been tolerating his food and fluids. His mother is at bedside and updated on plan of care. He has not required any vasopressors. His respiratory status slowly improved. Electrolytes continued to be monitored and replaced. 06/13/18- patient is being seen examined and evaluated today on rounds in the intensive care unit. The patient continues on high flow airflow at 45 L and 43 % FiO2. He feels his breathing is improved. He does continue to have significant wheeze. His CO2 level is 38. Chest x-ray was reviewed and does show basilar consolidation right greater than the left with a small effusion. Potassium and magnesium continued to be replaced. He has had a good appetite. Continues to make good urine. Afebrile no further complaints. Mother at bedside updated on plan of care Objective - Vital Signs Vital signs: Vital Signs Temp 97.8 F 06/13/18 08:00 Pulse 73 06/13/18 09:00 Resp 16 06/13/18 09:00 BP 112/69 06/13/18 09:00 Pulse Ox 96 06/13/18 08:00 Intake & Output 06/12/18 06/13/18 06/13/18 18:59 06:59 18:59 Intake Total 2608 546 138 Output Total 2461 2562 475 Balance 147 -337 Weight 88.1 kg Intake: IV 1648 546 138 0.9 for pressure bag 48 66 18 Ampicillin-Sulbactam 3 gm 100 In Sodium Chloride 0.9% 100 ml @ 100 mls/hr IVPB Q6HR [facility] Rx#:[id number] Magnesium Sulfate-D5w Pmx 100 1 gm In Dextrose/Water 1 100ml.bag @ 100 mls/hr IVPB ONCE ONE Rx#: [id number] Sodium Chloride 0.9% 1, 1400 480 120 000 ml @ 40 mls/hr IV . Q24H [facility] Rx#:[id number] Oral 960 Output: Urine 2460 2560 475 Stool 1 2 Other: Voiding Method Indwelling Catheter Indwelling Catheter ABP, PAP, CO, CI - Last Documented Arterial Blood Pressure 132/61 - Exam GENERAL EXAM: Alert, active, comfortable in no apparent distress on high flow airvo. HEAD: Normocephalic. EYES: Normal reaction of pupils, equal size. NOSE: Clear with pink turbinates. THROAT: No erythema or exudates. NECK: No masses, no JVD. CHEST: No chest wall deformity. LUNGS: Lungs noted to be coarse throughout with some scattered rhonchi CVS: S1 and S2 normal with no audible mumurs, regular rhythm. ABDOMEN: No hepatosplenomegaly, normal bowel sounds, no guarding or rigidity. EXTREMITIES: no edema noted, pedal pulses palpable. CENTRAL NERVOUS SYSTEM: No focal deficits, tone is normal in all 4 extremities. - Labs CBC & Chem 7: 06/13/18 05:00 06/13/18 05:00 Labs: Abnormal Lab Results - Last 24 Hours (Table) 06/12/18 06/12/18 06/12/18 Range/Units 12:05 13:05 16:56 WBC (3.8-10.6) k/uL RBC (4.30-5.90) m/uL Hgb (13.0-17.5) gm/dL Hct (39.0-53.0) % MCHC (31.0-37.0) g/dL RDW (11.5-15.5) % Neutrophils # (1.3-7.7) k/uL Lymphocytes # (1.0-4.8) k/uL Sodium (137-145) mmol/L Potassium (3.5-5.1) mmol/L Chloride (98-107) mmol/L Carbon Dioxide (22-30) mmol/L Creatinine (0.66-1.25) mg/dL Glucose (74-99) mg/dL POC Glucose (mg/dL) 210 H 281 H 191 H (75-99) mg/dL Calcium (8.4-10.2) mg/dL Magnesium (1.6-2.3) mg/dL Total Bilirubin (0.2-1.3) mg/dL Total Protein (6.3-8.2) g/dL Albumin (3.5-5.0) g/dL 06/12/18 06/12/18 06/13/18 Range/Units 17:48 21:31 05:00 WBC 12.8 H (3.8-10.6) k/uL RBC 2.85 L (4.30-5.90) m/uL Hgb 7.8 L (13.0-17.5) gm/dL Hct 25.4 L (39.0-53.0) % MCHC 30.5 L (31.0-37.0) g/dL RDW 19.9 H (11.5-15.5) % Neutrophils # 11.8 H (1.3-7.7) k/uL Lymphocytes # 0.6 L (1.0-4.8) k/uL Sodium (137-145) mmol/L Potassium (3.5-5.1) mmol/L Chloride (98-107) mmol/L Carbon Dioxide (22-30) mmol/L Creatinine (0.66-1.25) mg/dL Glucose (74-99) mg/dL POC Glucose (mg/dL) 214 H (75-99) mg/dL Calcium (8.4-10.2) mg/dL Magnesium 1.5 L (1.6-2.3) mg/dL Total Bilirubin (0.2-1.3) mg/dL Total Protein (6.3-8.2) g/dL Albumin (3.5-5.0) g/dL 06/13/18 06/13/18 Range/Units 05:00 07:02 WBC (3.8-10.6) k/uL RBC (4.30-5.90) m/uL Hgb (13.0-17.5) gm/dL Hct (39.0-53.0) % MCHC (31.0-37.0) g/dL RDW (11.5-15.5) % Neutrophils # (1.3-7.7) k/uL Lymphocytes # (1.0-4.8) k/uL Sodium 135 L (137-145) mmol/L Potassium 3.4 L (3.5-5.1) mmol/L Chloride 91 L (98-107) mmol/L Carbon Dioxide 38 H (22-30) mmol/L Creatinine 0.50 L (0.66-1.25) mg/dL Glucose 148 H (74-99) mg/dL POC Glucose (mg/dL) 145 H (75-99) mg/dL Calcium 8.2 L (8.4-10.2) mg/dL Magnesium 1.5 L (1.6-2.3) mg/dL Total Bilirubin 0.1 L (0.2-1.3) mg/dL Total Protein 5.1 L (6.3-8.2) g/dL Albumin 2.2 L (3.5-5.0) g/dL Microbiology - Last 24 Hours (Table) 06/08/18 14:14 CSF Gram Stain - Final Cerebral Spinal Fluid CSF Culture - Final Assessment and Plan Assessment: Assessment Acute hypoxic and hypercapnic respiratory failure Toxic metabolic encephalopathy, suspect alcohol intoxication Severe lactic acidosis Anion gap metabolic acidosis Severe dehydration Aspiration pneumonia NSTEMI Septic shock Leukocytosis Anemia, normochromic, normocytic Sinus tachycardia History of DVTs and seizure disorder Hyponatremia Nicotine dependence Hyperglycemia Alcohol abuse Plan Patient could be downgraded from the intensive care unit high flow airvo wean as tolerated Diamox added for high CO2 level Continue to monitor and replace electrolytes per protocol Titrate FiO2 to keep oxygen saturations greater than 88% Blood, urine, sputum cultures reviewed Antibiotics: ID on consult Monitor urine output and renal function Insulin sliding scale and Accu-Cheks Duo nebs and Pulmicort IV steroids CIWA protocol Monitor and replace electrolytes per protocol Maintenance IV fluids at 40 mL per hour GI and DVT prophylaxis Consult PT and OT for early mobility Thiamine, folate, multivitamin Seizure and aspiration precautions ID, Neuro and cardio on consult Advance diet as tolerated Encourage IS Patient's mother at bedside is updated to patient's condition, plan of care I performed an examination of the patient and discussed their management with the nurse practitioner. I have reviewed the nurse practitioner's note and agree with the documented findings and plan of care. <Esha Ambrose - Last Filed: 06/13/18 16:03> Objective - Vital Signs Vital signs: Vital Signs Temp 98 F 06/13/18 12:00 Pulse 72 06/13/18 15:28 Resp 16 06/13/18 15:00 BP 106/72 06/13/18 15:00 Pulse Ox 94 L 06/13/18 15:14 Intake & Output 06/12/18 06/13/18 06/13/18 18:59 06:59 18:59 Intake Total 2608 546 933 Output Total 5919 8079 3581 Balance 681 -9849 Weight 88.1 kg Intake: IV 1648 546 493 0.9 for pressure bag 48 66 33 Ampicillin-Sulbactam 3 gm 100 100 In Sodium Chloride 0.9% 100 ml @ 100 mls/hr IVPB Q6HR [facility] Rx#:[id number] Magnesium Sulfate-D5w Pmx 100 1 gm In Dextrose/Water 1 100ml.bag @ 100 mls/hr IVPB ONCE ONE Rx#: [id number] Sodium Chloride 0.9% 1, 1400 480 360 000 ml @ 40 mls/hr IV . Q24H [facility] Rx#:[id number] Oral 960 240 Tube Feeding 200 Output: Urine 2460 2560 4205 Stool 1 2 1 Other: Voiding Method Indwelling Catheter Indwelling Catheter Indwelling Catheter ABP, PAP, CO, CI - Last Documented Arterial Blood Pressure 125/59 - Labs CBC & Chem 7: 06/13/18 05:00 06/13/18 05:00 Labs: Abnormal Lab Results - Last 24 Hours (Table) 06/12/18 06/12/18 06/12/18 Range/Units 16:56 17:48 21:31 WBC (3.8-10.6) k/uL RBC (4.30-5.90) m/uL Hgb (13.0-17.5) gm/dL Hct (39.0-53.0) % MCHC (31.0-37.0) g/dL RDW (11.5-15.5) % Neutrophils # (1.3-7.7) k/uL Lymphocytes # (1.0-4.8) k/uL Sodium (137-145) mmol/L Potassium (3.5-5.1) mmol/L Chloride (98-107) mmol/L Carbon Dioxide (22-30) mmol/L Creatinine (0.66-1.25) mg/dL Glucose (74-99) mg/dL POC Glucose (mg/dL) 191 H 214 H (75-99) mg/dL Calcium (8.4-10.2) mg/dL Magnesium 1.5 L (1.6-2.3) mg/dL Total Bilirubin (0.2-1.3) mg/dL Total Protein (6.3-8.2) g/dL Albumin (3.5-5.0) g/dL 06/13/18 06/13/18 06/13/18 Range/Units 05:00 05:00 07:02 WBC 12.8 H (3.8-10.6) k/uL RBC 2.85 L (4.30-5.90) m/uL Hgb 7.8 L (13.0-17.5) gm/dL Hct 25.4 L (39.0-53.0) % MCHC 30.5 L (31.0-37.0) g/dL RDW 19.9 H (11.5-15.5) % Neutrophils # 11.8 H (1.3-7.7) k/uL Lymphocytes # 0.6 L (1.0-4.8) k/uL Sodium 135 L (137-145) mmol/L Potassium 3.4 L (3.5-5.1) mmol/L Chloride 91 L (98-107) mmol/L Carbon Dioxide 38 H (22-30) mmol/L Creatinine 0.50 L (0.66-1.25) mg/dL Glucose 148 H (74-99) mg/dL POC Glucose (mg/dL) 145 H (75-99) mg/dL Calcium 8.2 L (8.4-10.2) mg/dL Magnesium 1.5 L (1.6-2.3) mg/dL Total Bilirubin 0.1 L (0.2-1.3) mg/dL Total Protein 5.1 L (6.3-8.2) g/dL Albumin 2.2 L (3.5-5.0) g/dL 06/13/18 Range/Units 11:32 WBC (3.8-10.6) k/uL RBC (4.30-5.90) m/uL Hgb (13.0-17.5) gm/dL Hct (39.0-53.0) % MCHC (31.0-37.0) g/dL RDW (11.5-15.5) % Neutrophils # (1.3-7.7) k/uL Lymphocytes # (1.0-4.8) k/uL Sodium (137-145) mmol/L Potassium (3.5-5.1) mmol/L Chloride (98-107) mmol/L Carbon Dioxide (22-30) mmol/L Creatinine (0.66-1.25) mg/dL Glucose (74-99) mg/dL POC Glucose (mg/dL) 212 H (75-99) mg/dL Calcium (8.4-10.2) mg/dL Magnesium (1.6-2.3) mg/dL Total Bilirubin (0.2-1.3) mg/dL Total Protein (6.3-8.2) g/dL Albumin (3.5-5.0) g/dL Microbiology - Last 24 Hours (Table) 06/08/18 14:14 CSF Gram Stain - Final Cerebral Spinal Fluid CSF Culture - Final Assessment and Plan Assessment: Patient seen and examined in the ICU. The patient is awake and alert. He is currently getting nebulizer treatment. He states he is using the incentive spirometer. He states he has not been out of bed since yesterday. He is currently on Airvo 35% FiO2 with 40L/min flow. O2 saturation 94%. The patient was tried on 15L HFNC this morning and did have desaturation. He was placed back on Airvo. Continue Airvo for now. PT and OT, IS. Patient to get out of bed TID with meals. Decrease IVF to 10 cc/hr. Discontinue Diamox. Decrease Lasix to daily. Monitor I/O. Replace K and Mg. Consult dietitian. Ok to transfer out of ICU to [facility] today. ~Esha Ambrose DO
[2018-06-13] MEDS: THIAMINE 100 MG TAB PO SCH (11:28)
[2018-06-13 11:34] LABS: Glucose,Whole Blood 212 mg/dL (75-99)
[2018-06-13] MEDS: FUROSEMIDE 10 MG/ML 2 ML VIAL IV SCH (11:50)
[2018-06-13 17:07] LABS: Glucose,Whole Blood 175 mg/dL (75-99)
--- NOTE | 2018-06-13 18:21 | P.PN ---
Subjective Progress Note Date: 06/13/18 This patient is a 52-year-old male who is seen today in the intensive care unit for altered mental status and obtundation. Patient was extubated off of the ventilator this morning. He is currently on BiPAP and seems to be doing fairly well. It was recommended the patient to undergo a lumbar puncture for further evaluation of sepsis. Lumbar puncture was completed today by anesthesia. His spinal fluid results came back negative for any signs of [employer] infection. Patient continues on his CIWA protocol. He is receiving Unasyn and vancomycin for antibiotic coverage. Infectious disease is also following. As noted his spinal tap was completed today results are essentially negative for any evidence of [employer] infection. Cytology results are still pending. His C. difficile study came back negative. He did undergo routine EEG today which is reviewed and reveals severe slowing with background activity of 4-5 Hz with no epileptiform discharges. We reviewed all of these test results today in detail with the patient's mother who was at bedside in the intensive care unit. Patient's mother was at bedside and she was updated on his improvement in his neurological status following extubation today. Patient initially tolerated extubation quite well but then did show signs of respiratory decompensation. His oxygen saturation did fall and he was laced on BiPAP for a short time. He is now been able to get off of BiPAP and is only having nasal cannula oxygen for further management. The patient is doing much better after extubation. He is much more awake and alert today. His mother was at bedside and she was updated on his improvement today in general. He is able to answer all questions appropriately. We did check on his recent spinal fluid cytology report which did come back negative. We updated the mother as well as the patient. He was seen by cardiology and he has had no further episodes of bradycardia. His echocardiogram revealed normal LV function with an ejection fraction of 60% with no evidence of any valvular abnormalities. Patient did have a repeat EEG today which was reviewed. EEG shows significant improvement from his initial study that was done on 06/08/2018. Background is now 7-8 Hz. We have reviewed all of these test results in detail today with the patient and his mother at bedside. The patient is very much awake today in the ICU. He is answering all questions appropriately. According to his mother he has made a tremendous improvement in his overall condition since admission to the hospital. Patient continues on high flow oxygen at this time with nasal cannula. Pulmonary medicine is trying to wean him off of this gradually. He is much more awake and alert today and is being considered for transfer out of the intensive care unit to [facility] possibly later today. We will continue close neurological follow-up for this patient in the ICU setting. His overall prognosis at this time remains guarded. Objective - Vital Signs Vital signs: Vital Signs Temp 98 F 06/13/18 12:00 Pulse 85 06/13/18 13:00 Resp 18 06/13/18 13:00 BP 104/75 06/13/18 13:00 Pulse Ox 92 L 06/13/18 13:00 Intake & Output 06/12/18 06/13/18 06/13/18 18:59 06:59 18:59 Intake Total 2608 546 853 Output Total 2461 2562 3606 Balance Weight 88.1 kg Intake: IV 1648 546 413 0.9 for pressure bag 48 66 33 Ampicillin-Sulbactam 3 gm 100 100 In Sodium Chloride 0.9% 100 ml @ 100 mls/hr IVPB Q6HR [facility] Rx#:[id number] Magnesium Sulfate-D5w Pmx 100 1 gm In Dextrose/Water 1 100ml.bag @ 100 mls/hr IVPB ONCE ONE Rx#: [id number] Sodium Chloride 0.9% 1, 1400 480 280 000 ml @ 40 mls/hr IV . Q24H [facility] Rx#:[id number] Oral 960 240 Tube Feeding 200 Output: Urine 2460 2560 3605 Stool 1 2 1 Other: Voiding Method Indwelling Catheter Indwelling Catheter Indwelling Catheter ABP, PAP, CO, CI - Last Documented Arterial Blood Pressure 125/59 - Exam Physical examination: PHYSICAL EXAMINATION: Patient was extubated today and he is currently on BiPAP. VITAL SIGNS: Blood pressure is [104/75]. Heart rate is [85]. Respiration is [18] . Temperature is [98.1]. HEENT: Head is atraumatic, neck is supple, there were no carotid bruits. CHEST: Lungs are clear to auscultation and percussion. CARDIAC: S1, S2 normal rate and rhythm. There is no murmur. ABDOMEN: Soft and nontender. Bowel sounds are present. EXTREMITIES: There is no pedal edema. Peripheral pulses are present. Neurological examination: Patient is resting comfortably in the ICU today and seems to be in no distress. He is currently on high flow oxygen with BiPAP. He is more awake and alert and is following simple commands. Cranial nerves II through XII are grossly intact. Deep tendon reflexes are hypoactive 1+. Plantar responses flexor bilaterally. Coordination and gait cannot be assessed in this patient at this time. - Labs CBC & Chem 7: 06/13/18 05:00 06/13/18 05:00 Labs: Abnormal Lab Results - Last 24 Hours (Table) 06/12/18 06/12/18 06/12/18 Range/Units 16:56 17:48 21:31 WBC (3.8-10.6) k/uL RBC (4.30-5.90) m/uL Hgb (13.0-17.5) gm/dL Hct (39.0-53.0) % MCHC (31.0-37.0) g/dL RDW (11.5-15.5) % Neutrophils # (1.3-7.7) k/uL Lymphocytes # (1.0-4.8) k/uL Sodium (137-145) mmol/L Potassium (3.5-5.1) mmol/L Chloride (98-107) mmol/L Carbon Dioxide (22-30) mmol/L Creatinine (0.66-1.25) mg/dL Glucose (74-99) mg/dL POC Glucose (mg/dL) 191 H 214 H (75-99) mg/dL Calcium (8.4-10.2) mg/dL Magnesium 1.5 L (1.6-2.3) mg/dL Total Bilirubin (0.2-1.3) mg/dL Total Protein (6.3-8.2) g/dL Albumin (3.5-5.0) g/dL 06/13/18 06/13/18 06/13/18 Range/Units 05:00 05:00 07:02 WBC 12.8 H (3.8-10.6) k/uL RBC 2.85 L (4.30-5.90) m/uL Hgb 7.8 L (13.0-17.5) gm/dL Hct 25.4 L (39.0-53.0) % MCHC 30.5 L (31.0-37.0) g/dL RDW 19.9 H (11.5-15.5) % Neutrophils # 11.8 H (1.3-7.7) k/uL Lymphocytes # 0.6 L (1.0-4.8) k/uL Sodium 135 L (137-145) mmol/L Potassium 3.4 L (3.5-5.1) mmol/L Chloride 91 L (98-107) mmol/L Carbon Dioxide 38 H (22-30) mmol/L Creatinine 0.50 L (0.66-1.25) mg/dL Glucose 148 H (74-99) mg/dL POC Glucose (mg/dL) 145 H (75-99) mg/dL Calcium 8.2 L (8.4-10.2) mg/dL Magnesium 1.5 L (1.6-2.3) mg/dL Total Bilirubin 0.1 L (0.2-1.3) mg/dL Total Protein 5.1 L (6.3-8.2) g/dL Albumin 2.2 L (3.5-5.0) g/dL 06/13/18 Range/Units 11:32 WBC (3.8-10.6) k/uL RBC (4.30-5.90) m/uL Hgb (13.0-17.5) gm/dL Hct (39.0-53.0) % MCHC (31.0-37.0) g/dL RDW (11.5-15.5) % Neutrophils # (1.3-7.7) k/uL Lymphocytes # (1.0-4.8) k/uL Sodium (137-145) mmol/L Potassium (3.5-5.1) mmol/L Chloride (98-107) mmol/L Carbon Dioxide (22-30) mmol/L Creatinine (0.66-1.25) mg/dL Glucose (74-99) mg/dL POC Glucose (mg/dL) 212 H (75-99) mg/dL Calcium (8.4-10.2) mg/dL Magnesium (1.6-2.3) mg/dL Total Bilirubin (0.2-1.3) mg/dL Total Protein (6.3-8.2) g/dL Albumin (3.5-5.0) g/dL Microbiology - Last 24 Hours (Table) 06/08/18 14:14 CSF Gram Stain - Final Cerebral Spinal Fluid CSF Culture - Final Assessment and Plan (1) Acute metabolic encephalopathy Current Visit: Yes Status: Acute Code(s): G93.41 - METABOLIC ENCEPHALOPATHY SNOMED Code(s): 67837548 (2) Respiratory failure Current Visit: Yes Status: Acute Code(s): J96.90 - RESPIRATORY FAILURE, UNSP , UNSP W HYPOXIA OR HYPERCAPNIA SNOMED Code(s): 696869519 (3) Sepsis Current Visit: Yes Status: Acute Code(s): A41.9 - SEPSIS, UNSPECIFIED ORGANISM SNOMED Code(s): 18968019 (4) Alcohol dependence with withdrawal Current Visit: No Status: Acute Code(s): F10.239 - ALCOHOL DEPENDENCE WITH WITHDRAWAL, UNSPECIFIED SNOMED Code(s): 22785302 (5) Seizure disorder Current Visit: No Status: Acute Code(s): G40.909 - EPILEPSY, UNSP, NOT INTRACTABLE, WITHOUT STATUS EPILEPTICUS SNOMED Code(s): 889761612 Plan: This patient is a 52-year-old male who was initially admitted to the intensive care unit with acute hypoxic and hypercapnic respiratory failure. He was intubated initially and had been making only very slow progress. Initial EEG performed on 06/08/2018 revealed severe slowing of all EEG background activity. Patient was extubated this morning and is making very good progress and is showing significant improvement in his mental status. He had a follow-up EEG today for comparison which show significant improvement as compared to previous study. This patient does have history of underlying toxic metabolic encephalopathy and alcohol intoxication. He has had no evidence of seizure activity. He was placed on a CIWA protocol and has been able to adhere to his current status. We did review his recent CSF cytology report which did come back negative. He continues to show significant improvement in his mental status since yesterday. Overall the patient seems to be making very good recovery. He should continue on thiamine, folate, and multivitamin. We will continue to follow his progress closely for any further changes in his overall mental status. His overall prognosis at this time remains guarded. Case was discussed today at length with the patient's mother was at bedside in the ICU. All of her questions were answered. She is happy with his significant improvement today and she will continue to follow along with us. Patient may be transferred out of the ICU in the next day or possibly tonight. Patient underwent lumbar puncture and is herpes simplex virus 1 and 2 antibodies came back negative. His C. difficile antibody also was negative. We will continue close neurological follow-up with this patient the intensive care unit. Case was discussed today at length with his mother at bedside. Patient is awaiting possible transfer out of the ICU to [facility] possibly later today. Patient is doing much better overall in the last few days. We will continue to monitor his neurological status closely in the intensive care unit. His mother notices significant improvement in his overall neurological status. His acute hypoxic and hypercapnic respiratory failure has responded very well to treatment. We will continue close neurological follow-up with this patient in the intensive care unit.
[2018-06-13 19:44] LABS: Magnesium 1.4 mg/dL (1.6-2.3); Potassium 3.7 mmol/L (3.5-5.1)
[2018-06-13] MEDS: MONTELUKAST 10 MG TAB PO SCH (20:12)
[2018-06-13] MEDS: SODIUM CHLORIDE 0.9% 1,000 ML IV SCH (20:13)
[2018-06-13 20:49] LABS: Glucose,Whole Blood 165 mg/dL (75-99)
--- NOTE | 2018-06-13 21:07 | PN ---
PROGRESS NOTE DATE OF SERVICE: 06/13/2018. REASON FOR FOLLOWUP: Aspiration pneumonia. INTERVAL HISTORY: The patient is afebrile. Has been breathing more comfortably. Denies significant chest pain. Occasional cough and bringing up some sputum. No nausea, vomiting, abdominal pain or diarrhea. EXAMINATION: Blood pressure 117/77 with a pulse of 79, temperature 98.2. He is 94% on high-flow nasal cannula oxygen. General description is a middle-aged male lying in bed in no distress. Respiratory system: Unlabored breathing with decreased breath sounds at the bases. No wheeze. Heart S1, S2. Regular rate and rhythm. Abdomen soft, no tenderness. EXTREMITIES: No edema of the feet. LABS: Hemoglobin 7.8, white count 12.8. BUN of 15, creatinine 0.50. DIAGNOSTIC IMPRESSION AND PLAN: Patient admitted to the hospital with sepsis, unresponsiveness with concern for an aspiration pneumonia. So far, bronch as well as sputum culture has been negative. Currently on Unasyn. That will be continued and transition to oral antibiotic on discharge. Continue supportive care. MMODL / IJN: [id number] /
--- NOTE | 2018-06-13 22:10 | PN ---
PROGRESS NOTE SUBJECTIVE: This is a white male who is more alert and more talkative, eating food. He is on Accu- Chek protocol. He was sent out of the ICU today to a regular floor, as he is improving. He will need rehab facility for further treatment prior to going to a rehab facility, most likely [facility] for alcohol rehab. His breathing is improved. He is on 43% FiO2, high flow. CO2 is 38. Chest x-ray shows basilar consolidation, right greater than left. Potassium and magnesium are to be replaced. He has a good appetite. Temperature 97.8, pulse 73, respiratory rate 16 to 18, blood pressure 112/69, oxygen 96% on room air. CARDIOVASCULAR: S1, S2. LUNGS: Transmitted upper sounds. GI: Soft. HEMATOLOGY: Negative Homans. PSYCH: Fair mood and affect. NEUROLOGIC: Alert and oriented x3. Sodium 135, potassium 3.4, creatinine 0.5. ASSESSMENT: 1. Anion gap metabolic acidosis. 2. Severe dehydration. 3. Aspiration pneumonia. 4. Ysi-SC-byshwij-elevation myocardial infarction. 5. Septic shock. 6. Leukocytosis. 7. Anemia. 8. Sinus tachycardia. 9. Hyponatremia. 10.Nicotine dependence. 11.Hyperglycemia. 12.Alcohol abuse. Infectious Disease. Diamox added for high CO2. Titrate FiO2. Antibiotics ID, DuoNeb, Pulmicort, steroids. Prognosis guarded. ICU time 30 minutes. YINKAL / MARTÍNN: [id number] /
[2018-06-14] MEDS ORDERED: methylPREDNISolone SOD SUCCI 125 MG/2 ML VIAL ONE
[2018-06-14] MEDS: methylPREDNISolone SOD SUCCI 40 MG/ML 1 ML VIAL IV SCH ×4 (05:27→23:15)
[2018-06-14] MEDS: AMPICILLIN-SULBACTAM 3 GM in SODIUM CHLORIDE 0.9% 100 ML IVPB SCH ×5 (05:27→23:14)
[2018-06-14 05:44] LABS: Glucose,Whole Blood 179 mg/dL (75-99)
[2018-06-14 06:07] LABS: Anisocytosis Moderate; Basophils % (A) 0 %; Eosinophils % (A) 0 %; HCT 27.1 % (39.0-53.0); HGB 8.3 gm/dL (13.0-17.5); Hypochromasia Slight; Lymphocytes # (A) 0.7 k/uL (1.0-4.8); Lymphocytes % (A) 5 %; MCH 27.7 pg (25.0-35.0); MCHC 30.4 g/dL (31.0-37.0); MCV 90.9 fL (80.0-100.0); Macrocytosis Slight; Mean Platelet Volume 6.7; Monocytes # (A) 0.4 k/uL (0-1.0); Monocytes % (A) 3 %; Neutrophils % (A) 92 %; Platelet Count 408 k/uL (150-450); RBC 2.98 m/uL (4.30-5.90); RDW 20.1 % (11.5-15.5); WBC 13.1 k/uL (3.8-10.6)
[2018-06-14] MEDS: INSULIN ASPART 100 UNIT/ML 1 ML 10 ML VIAL SQ SCH ×8 (06:32→22:05)
[2018-06-14 06:38] LABS: ALT 52 U/L (21-72); AST 31 U/L (17-59); Albumin 2.2 g/dL (3.5-5.0); Alkaline Phosphatase 63 U/L (38-126); Anion Gap 3 mmol/L; Blood Urea Nitrogen 16 mg/dL (9-20); Calcium 8.3 mg/dL (8.4-10.2); Carbon Dioxide 32 mmol/L (22-30); Chloride 100 mmol/L (98-107); Glucose 127 mg/dL (74-99); Magnesium 1.2 mg/dL (1.6-2.3); Potassium 3.9 mmol/L (3.5-5.1); Sodium 135 mmol/L (137-145); Total Bilirubin 0.1 mg/dL (0.2-1.3); Total Protein 4.9 g/dL (6.3-8.2)
--- NOTE | 2018-06-14 08:18 | XR ---
EXAMINATION TYPE: XR chest 1V portable DATE OF EXAM: 06/14/2018 COMPARISON: 06/13/2018 HISTORY: Shortness of breath and alcohol withdrawal TECHNIQUE: Single frontal view of the chest is obtained. FINDINGS: There is improved aeration of the right lung base with persistent strand-like right infrah ilar opacity, right midlung opacity, and retrocardiac opacity. Chronic appearing interstitial promine nce is seen at the lung apices. Right-sided internal jugular central venous catheter has been removed in the interim. Cardiomediastinal silhouette is upper limits of normal. Trace left pleural effusion remains. IMPRESSION: Improving aeration of the right lung base with persistent multifocal opacities and trace left pleural effusion.
[2018-06-14] MEDS: IPRATROPIUM-ALBUTEROL 3 ML NEB INHALATION SCH ×4 (08:42→21:06)
[2018-06-14] MEDS: BUDESONIDE 1 MG/2 ML NEBU INHALATION SCH ×2 (08:42→21:06)
[2018-06-14] MEDS: guaiFENesin 600 MG TABLET.ER PO SCH ×2 (09:29→20:22)
[2018-06-14] MEDS: FUROSEMIDE 10 MG/ML 2 ML VIAL IV SCH (09:31)
[2018-06-14] MEDS: PANTOPRAZOLE 40 MG/10 ML VIAL IV SCH (09:31)
[2018-06-14] MEDS: HEPARIN SODIUM,PORCINE 5,000 UNIT/ML 1 ML VIAL SQ SCH ×3 (09:31→23:15)
[2018-06-14] MEDS: MAGNESIUM SULFATE-D5W PMX 1 GM in DEXTROSE/WATER 1 100ML.BAG IVPB SCH ×3 (09:33→12:41)
[2018-06-14] MEDS: ACETAMINOPHEN TAB 325 MG TAB PO PRN ×2 (09:43→19:50)
--- NOTE | 2018-06-14 10:32 | P.PN ---
Subjective Progress Note Date: 06/14/18 History of present illness: This is a 52-year-old gentleman who [facility] History is unable to be obtained from the patient as he is sedated on the ventilator. Per the emergency room note the patient was found unresponsive and EMS was called. The Patient's O2 saturation was 50%. He had minimal improvement on nonrebreather. The patient was to Make an hypoxic and subsequently intubated in the emergency room. The patient was found to have an elevated lactic acid of 12.6. He was profoundly acidotic with a pH of less than 7.0. The patient was hypotensive and started on Levophed. He is currently on 6 mcg/m of Levophed. He is having a large amount of green and secretions from the ET tube. It is assumed the patient aspirated. The patient is on 100% FiO2 and PEEP of 8. Bronchoscopy is performed to clear secretions. The patient has been given 2 L of IV fluids in the emergency room. He has maintenance fluids running at 100 mL per hour. He does intermittently respond to commands. The patient is a known alcoholic. He has had multiple admissions for alcohol intoxication and subsequently go through withdrawals. The patient has refused alcohol rehab in the past. The patient has required BiPAP in the past. He does drink about a pound of vodka daily. The patient's chest x-ray shows right lower lobe infiltrate. EKG shows sinus tachycardia. He also has slightly elevated troponins. Interval History: 06/06/18- patient is being seen examined and evaluated today on rounds. He is on mechanical ventilation with propofol for sedation. Current mechanical ventilation settings are assist control mode with a respiratory rate of 20, tidal volume of 550, FiO2 of 70%, and a PEEP of 8. Currently he is on Levophed at 8 mics, and propofol at 30 mics. OG tube has green bile like output, ET tube continues to have green tea-like secretions. He has been making urine. He has got a total of 4 L of fluid resuscitation. His ABGs from this morning reveal a pH of 7.33, pCO2 of 55, pO2 of 85 and HCO3 of 29. Dietary is on board and will be starting tube feeds today. His potassium is 3.5 is being replaced his magnesium is 1.3 and being replaced. His chest x-ray was reviewed and lines are stable ET tube can be advanced to 3 cm. He has a persistent right loculated pleural effusion and a trace left pleural effusion. Infectious disease has been consulted. He continues on antibiotics. Mother is at bedside updated on plan of care. No plans for extubation today. 06/07/18- patient is being seen examined and evaluated today on rounds in the intensive care unit. Patient continues on mechanical ventilation with propofol for sedation. Current mechanical ventilator settings are assist-control mode with respiratory rate of 20, tidal volume of 550, FiO2 80%, and a PEEP of 8. Patient's blood gases from this morning reveal a pH of 7.38 pCO2 of 55, pO2 of 67, and HCO3 of 33. The ABGs were done on 70% of FiO2 and were titrated up to 80% after that. He did know to have a slight increase in his temperature this morning and Ofirmev given. He also was noted to be tachycardiac and Ativan was given for the CIWA protocol. He continues to have moderate amount of secretions from ET tube. He has been tolerating his tube feedings. He has been making good urine approximately 70 per hour. Infectious disease did see the patient yesterday. His ammonia also did improve to 31 today. 06/08/18 to 06/10/[address] Velazquez's notes for coverage 06/11/18- patient is being seen examined and evaluated today on rounds. He is resting up in bed on BiPAP, BiPAP settings are IPAP of 15, EPAP of 10, FiO2 70% . He is noted to have oxygen desaturations with removal of the BiPAP. He has taken it off intermittently for quick sips of water without issues. He has no issues with swallowing water. He has been making good urine. He is alert and active. Mother at bedside. Electrolytes being replaced. Chest x-ray has been reviewed. His hemoglobin is 7.7 today. He is afebrile denies any further complaints. 06/12/18- patient is being seen examined and evaluated today on rounds in the intensive care unit. The patient was discharged in addition from BiPAP to high flow airflow, currently he has an O2 flow rate of 50 L with an FiO2 of 55%, RT continues to wean down as tolerated. He did have an elevated CO2 this morning of 47 and Diamox has been started for that. His WBC count has improved to 10.7 today. His hemoglobin is stable at 7.2overt signs of bleeding. He has been tolerating his food and fluids. His mother is at bedside and updated on plan of care. He has not required any vasopressors. His respiratory status slowly improved. Electrolytes continued to be monitored and replaced. 06/13/18- patient is being seen examined and evaluated today on rounds in the intensive care unit. The patient continues on high flow airflow at 45 L and 43 % FiO2. He feels his breathing is improved. He does continue to have significant wheeze. His CO2 level is 38. Chest x-ray was reviewed and does show basilar consolidation right greater than the left with a small effusion. Potassium and magnesium continued to be replaced. He has had a good appetite. Continues to make good urine. Afebrile no further complaints. Mother at bedside updated on plan of care 06/14/18- patient is being seen examined and evaluated today on rounds. He was downgraded from the intensive care unit yesterday. He is now on the selective care unit. He is doing relatively well. He continues on high flow airflow. Settings have been weaned down and he is on a O2 flow rate of 40 L with an FiO2 of 35%. We will continue to try to wean him off this. He has been hemodynamically stable. All labs and reports have been reviewed and are improving. Chest x-ray was reviewed from this morning and shows improving aeration of the right lung base with persistent multifocal PACs and trace left pleural effusion Objective - Vital Signs Vital signs: Vital Signs Temp 97.4 F L 06/14/18 08:00 Pulse 82 06/14/18 09:00 Resp 18 06/14/18 08:00 BP 121/72 06/14/18 04:00 Pulse Ox 96 06/14/18 08:44 Intake & Output 06/13/18 06/14/18 06/14/18 18:59 06:59 18:59 Intake Total 1303 400 Output Total 4072 5072 Balance -3629 -2353 400 Weight 88 kg Intake: IV 623 0.9 for pressure bag 33 Ampicillin-Sulbactam 3 gm 200 In Sodium Chloride 0.9% 100 ml @ 100 mls/hr IVPB Q6HR [facility] Rx#:[id number] Sodium Chloride 0.9% 1, 390 000 ml @ 10 mls/hr IV . Q24H [facility] Rx#:[id number] Oral 480 400 Tube Feeding 200 Output: Urine 4930 2350 Stool 2 2 Other: Voiding Method Indwelling Catheter Indwelling Catheter Indwelling Catheter # Voids 1 ABP, PAP, CO, CI - Last Documented Arterial Blood Pressure 125/59 - Exam GENERAL EXAM: Alert, active, comfortable in no apparent distress on high flow airvo. HEAD: Normocephalic. EYES: Normal reaction of pupils, equal size. NOSE: Clear with pink turbinates. THROAT: No erythema or exudates. NECK: No masses, no JVD. CHEST: No chest wall deformity. LUNGS: Lungs noted to be coarse throughout with some scattered rhonchi CVS: S1 and S2 normal with no audible mumurs, regular rhythm. ABDOMEN: No hepatosplenomegaly, normal bowel sounds, no guarding or rigidity. EXTREMITIES: no edema noted, pedal pulses palpable. CENTRAL NERVOUS SYSTEM: No focal deficits, tone is normal in all 4 extremities. - Labs CBC & Chem 7: 06/14/18 05:35 06/14/18 05:35 Labs: Abnormal Lab Results - Last 24 Hours (Table) 06/13/18 06/13/18 06/13/18 Range/Units 11:32 17:06 19:00 WBC (3.8-10.6) k/uL RBC (4.30-5.90) m/uL Hgb (13.0-17.5) gm/dL Hct (39.0-53.0) % MCHC (31.0-37.0) g/dL RDW (11.5-15.5) % Neutrophils # (1.3-7.7) k/uL Lymphocytes # (1.0-4.8) k/uL Sodium (137-145) mmol/L Carbon Dioxide (22-30) mmol/L Glucose (74-99) mg/dL POC Glucose (mg/dL) 212 H 175 H (75-99) mg/dL Calcium (8.4-10.2) mg/dL Magnesium 1.4 L (1.6-2.3) mg/dL Total Bilirubin (0.2-1.3) mg/dL Total Protein (6.3-8.2) g/dL Albumin (3.5-5.0) g/dL 06/13/18 06/14/18 06/14/18 Range/Units 20:47 05:35 05:35 WBC 13.1 H (3.8-10.6) k/uL RBC 2.98 L (4.30-5.90) m/uL Hgb 8.3 L (13.0-17.5) gm/dL Hct 27.1 L (39.0-53.0) % MCHC 30.4 L (31.0-37.0) g/dL RDW 20.1 H (11.5-15.5) % Neutrophils # 12.0 H (1.3-7.7) k/uL Lymphocytes # 0.7 L (1.0-4.8) k/uL Sodium 135 L (137-145) mmol/L Carbon Dioxide 32 H (22-30) mmol/L Glucose 127 H (74-99) mg/dL POC Glucose (mg/dL) 165 H (75-99) mg/dL Calcium 8.3 L (8.4-10.2) mg/dL Magnesium 1.2 L (1.6-2.3) mg/dL Total Bilirubin 0.1 L (0.2-1.3) mg/dL Total Protein 4.9 L (6.3-8.2) g/dL Albumin 2.2 L (3.5-5.0) g/dL 06/14/18 Range/Units 05:42 WBC (3.8-10.6) k/uL RBC (4.30-5.90) m/uL Hgb (13.0-17.5) gm/dL Hct (39.0-53.0) % MCHC (31.0-37.0) g/dL RDW (11.5-15.5) % Neutrophils # (1.3-7.7) k/uL Lymphocytes # (1.0-4.8) k/uL Sodium (137-145) mmol/L Carbon Dioxide (22-30) mmol/L Glucose (74-99) mg/dL POC Glucose (mg/dL) 179 H (75-99) mg/dL Calcium (8.4-10.2) mg/dL Magnesium (1.6-2.3) mg/dL Total Bilirubin (0.2-1.3) mg/dL Total Protein (6.3-8.2) g/dL Albumin (3.5-5.0) g/dL Assessment and Plan Assessment: Assessment Acute hypoxic and hypercapnic respiratory failure Toxic metabolic encephalopathy, suspect alcohol intoxication Severe lactic acidosis Anion gap metabolic acidosis Severe dehydration Aspiration pneumonia NSTEMI Septic shock Leukocytosis Anemia, normochromic, normocytic Sinus tachycardia History of DVTs and seizure disorder Hyponatremia Nicotine dependence Hyperglycemia Alcohol abuse Plan Patient is agreeable to alcoholic rehab upon discharge, when medically stable high flow airvo wean as tolerated Continue to monitor and replace electrolytes per protocol Titrate FiO2 to keep oxygen saturations greater than 88% Blood, urine, sputum cultures reviewed Antibiotics: ID on consult Monitor urine output and renal function Insulin sliding scale and Accu-Cheks Duo nebs and Pulmicort IV steroids CIWA protocol Monitor and replace electrolytes per protocol Maintenance IV fluids at 40 mL per hour GI and DVT prophylaxis Consult PT and OT for early mobility Thiamine, folate, multivitamin Seizure and aspiration precautions ID, Neuro and cardio on consult Advance diet as tolerated Encourage IS Patient's mother at bedside is updated to patient's condition, plan of care I performed an examination of the patient and discussed their management with the nurse practitioner. I have reviewed the nurse practitioner's note and agree with the documented findings and plan of care.
[2018-06-14 11:31] LABS: Glucose,Whole Blood 110 mg/dL (75-99)
[2018-06-14] MEDS: THIAMINE 100 MG TAB PO SCH (12:39)
[2018-06-14] MEDS: SODIUM CHLORIDE 0.9% 1,000 ML IV SCH (12:42)
[2018-06-14 16:38] LABS: Glucose,Whole Blood 148 mg/dL (75-99)
--- NOTE | 2018-06-14 16:45 | P.PN ---
Subjective Progress Note Date: 06/14/18 This patient is a 52-year-old male who is seen today in the intensive care unit for altered mental status and obtundation. Patient was extubated off of the ventilator this morning. He is currently on BiPAP and seems to be doing fairly well. It was recommended the patient to undergo a lumbar puncture for further evaluation of sepsis. Lumbar puncture was completed today by anesthesia. His spinal fluid results came back negative for any signs of ELECTRICIAN ASSISTANT infection. Patient continues on his CIWA protocol. He is receiving Unasyn and vancomycin for antibiotic coverage. Infectious disease is also following. As noted his spinal tap was completed today results are essentially negative for any evidence of ELECTRICIAN ASSISTANT infection. Cytology results are still pending. His C. difficile study came back negative. He did undergo routine EEG today which is reviewed and reveals severe slowing with background activity of 4-5 Hz with no epileptiform discharges. We reviewed all of these test results today in detail with the patient's mother who was at bedside in the intensive care unit. Patient's mother was at bedside and she was updated on his improvement in his neurological status following extubation today. Patient initially tolerated extubation quite well but then did show signs of respiratory decompensation. His oxygen saturation did fall and he was laced on BiPAP for a short time. He is now been able to get off of BiPAP and is only having nasal cannula oxygen for further management. The patient is doing much better after extubation. He is much more awake and alert today. His mother was at bedside and she was updated on his improvement today in general. He is able to answer all questions appropriately. We did check on his recent spinal fluid cytology report which did come back negative. We updated the mother as well as the patient. He was seen by cardiology and he has had no further episodes of bradycardia. His echocardiogram revealed normal LV function with an ejection fraction of 60% with no evidence of any valvular abnormalities. Patient did have a repeat EEG today which was reviewed. EEG shows significant improvement from his initial study that was done on 06/08/2018. Background is now 7-8 Hz. We have reviewed all of these test results in detail today with the patient and his mother at bedside. The patient is very much awake today in the ICU. He is answering all questions appropriately. According to his mother he has made a tremendous improvement in his overall condition since admission to the hospital. Patient continues on high flow oxygen at this time with nasal cannula. Pulmonary medicine is trying to wean him off of this gradually. Patient was transferred out of the ICU yesterday. He is doing fine on selective care unit. We will continue to follow him closely with multiple other specialists. His overall prognosis at this time remains guarded. Objective - Vital Signs Vital signs: Vital Signs Temp 97.4 F L 06/14/18 08:00 Pulse 82 06/14/18 09:00 Resp 18 06/14/18 08:00 BP 121/72 06/14/18 04:00 Pulse Ox 96 06/14/18 08:44 Intake & Output 06/13/18 06/14/18 06/14/18 18:59 06:59 18:59 Intake Total 1303 400 Output Total 4932 2352 Balance -3629 -2352 400 Weight 88 kg Intake: IV 623 0.9 for pressure bag 33 Ampicillin-Sulbactam 3 gm 200 In Sodium Chloride 0.9% 100 ml @ 100 mls/hr IVPB Q6HR HERIBERTO Rx#:[id number] Sodium Chloride 0.9% 1, 390 000 ml @ 10 mls/hr IV . Q24H HERIBERTO Rx#:[id number] Oral 480 400 Tube Feeding 200 Output: Urine 4930 2350 Stool 2 2 Other: Voiding Method Indwelling Catheter Indwelling Catheter Indwelling Catheter # Voids 1 ABP, PAP, CO, CI - Last Documented Arterial Blood Pressure 125/59 - Exam Physical examination: PHYSICAL EXAMINATION: Patient was extubated today and he is currently on BiPAP. VITAL SIGNS: Blood pressure is [121/72]. Heart rate is [64]. Respiration is [24] . Temperature is [97.7]. HEENT: Head is atraumatic, neck is supple, there were no carotid bruits. CHEST: Lungs are clear to auscultation and percussion. CARDIAC: S1, S2 normal rate and rhythm. There is no murmur. ABDOMEN: Soft and nontender. Bowel sounds are present. EXTREMITIES: There is no pedal edema. Peripheral pulses are present. Neurological examination: Patient is resting comfortably in the ICU today and seems to be in no distress. He is currently on high flow oxygen with BiPAP. He is more awake and alert and is following simple commands. Cranial nerves II through XII are grossly intact. Deep tendon reflexes are hypoactive 1+. Plantar responses flexor bilaterally. Coordination and gait cannot be assessed in this patient at this time. - Labs CBC & Chem 7: 06/14/18 05:35 06/14/18 05:35 Labs: Abnormal Lab Results - Last 24 Hours (Table) 06/13/18 06/13/18 06/13/18 Range/Units 11:32 17:06 19:00 WBC (3.8-10.6) k/uL RBC (4.30-5.90) m/uL Hgb (13.0-17.5) gm/dL Hct (39.0-53.0) % MCHC (31.0-37.0) g/dL RDW (11.5-15.5) % Neutrophils # (1.3-7.7) k/uL Lymphocytes # (1.0-4.8) k/uL Sodium (137-145) mmol/L Carbon Dioxide (22-30) mmol/L Glucose (74-99) mg/dL POC Glucose (mg/dL) 212 H 175 H (75-99) mg/dL Calcium (8.4-10.2) mg/dL Magnesium 1.4 L (1.6-2.3) mg/dL Total Bilirubin (0.2-1.3) mg/dL Total Protein (6.3-8.2) g/dL Albumin (3.5-5.0) g/dL 06/13/18 06/14/18 06/14/18 Range/Units 20:47 05:35 05:35 WBC 13.1 H (3.8-10.6) k/uL RBC 2.98 L (4.30-5.90) m/uL Hgb 8.3 L (13.0-17.5) gm/dL Hct 27.1 L (39.0-53.0) % MCHC 30.4 L (31.0-37.0) g/dL RDW 20.1 H (11.5-15.5) % Neutrophils # 12.0 H (1.3-7.7) k/uL Lymphocytes # 0.7 L (1.0-4.8) k/uL Sodium 135 L (137-145) mmol/L Carbon Dioxide 32 H (22-30) mmol/L Glucose 127 H (74-99) mg/dL POC Glucose (mg/dL) 165 H (75-99) mg/dL Calcium 8.3 L (8.4-10.2) mg/dL Magnesium 1.2 L (1.6-2.3) mg/dL Total Bilirubin 0.1 L (0.2-1.3) mg/dL Total Protein 4.9 L (6.3-8.2) g/dL Albumin 2.2 L (3.5-5.0) g/dL 06/14/18 Range/Units 05:42 WBC (3.8-10.6) k/uL RBC (4.30-5.90) m/uL Hgb (13.0-17.5) gm/dL Hct (39.0-53.0) % MCHC (31.0-37.0) g/dL RDW (11.5-15.5) % Neutrophils # (1.3-7.7) k/uL Lymphocytes # (1.0-4.8) k/uL Sodium (137-145) mmol/L Carbon Dioxide (22-30) mmol/L Glucose (74-99) mg/dL POC Glucose (mg/dL) 179 H (75-99) mg/dL Calcium (8.4-10.2) mg/dL Magnesium (1.6-2.3) mg/dL Total Bilirubin (0.2-1.3) mg/dL Total Protein (6.3-8.2) g/dL Albumin (3.5-5.0) g/dL Assessment and Plan (1) Acute metabolic encephalopathy Current Visit: Yes Status: Acute Code(s): G93.41 - METABOLIC ENCEPHALOPATHY SNOMED Code(s): 01218079 (2) Respiratory failure Current Visit: Yes Status: Acute Code(s): J96.90 - RESPIRATORY FAILURE, UNSP , UNSP W HYPOXIA OR HYPERCAPNIA SNOMED Code(s): 627237379 (3) Sepsis Current Visit: Yes Status: Acute Code(s): A41.9 - SEPSIS, UNSPECIFIED ORGANISM SNOMED Code(s): 52433645 (4) Alcohol dependence with withdrawal Current Visit: No Status: Acute Code(s): F10.239 - ALCOHOL DEPENDENCE WITH WITHDRAWAL, UNSPECIFIED SNOMED Code(s): 05447678 (5) Seizure disorder Current Visit: No Status: Acute Code(s): G40.909 - EPILEPSY, UNSP, NOT INTRACTABLE, WITHOUT STATUS EPILEPTICUS SNOMED Code(s): 187817760 Plan: This patient is a 52-year-old male who was initially admitted to the intensive care unit with acute hypoxic and hypercapnic respiratory failure. He was intubated initially and had been making only very slow progress. Initial EEG performed on 06/08/2018 revealed severe slowing of all EEG background activity. Patient was extubated this morning and is making very good progress and is showing significant improvement in his mental status. He had a follow-up EEG today for comparison which show significant improvement as compared to previous study. This patient does have history of underlying toxic metabolic encephalopathy and alcohol intoxication. He has had no evidence of seizure activity. He was placed on a CIWA protocol and has been able to adhere to his current status. We did review his recent CSF cytology report which did come back negative. He continues to show significant improvement in his mental status since yesterday. Overall the patient seems to be making very good recovery. He should continue on thiamine, folate, and multivitamin. We will continue to follow his progress closely for any further changes in his overall mental status. His overall prognosis at this time remains guarded. Case was discussed today at length with the patient's mother was at bedside in the ICU. All of her questions were answered. She is happy with his significant improvement today and she will continue to follow along with us. Patient may be transferred out of the ICU in the next day or possibly tonight. Patient underwent lumbar puncture and is herpes simplex virus 1 and 2 antibodies came back negative. His C. difficile antibody also was negative. We will continue close neurological follow-up with this patient the intensive care unit. Case was discussed today at length with his mother at bedside. Patient was transferred out of the ICU yesterday. He is doing quite well today on the selective care unit. Patient is doing much better overall in the last few days. We will continue to monitor his neurological status closely in the intensive care unit. His mother notices significant improvement in his overall neurological status. His acute hypoxic and hypercapnic respiratory failure has responded very well to treatment. We will continue close neurological follow- up with this patient in the intensive care unit.
--- NOTE | 2018-06-14 18:02 | PN ---
PROGRESS NOTE DATE OF SERVICE: 06/14/2018 REASON FOR FOLLOWUP: Aspiration pneumonia. INTERVAL HISTORY: The patient is afebrile. He is breathing comfortably. He denies significant chest pain. No cough. No abdominal pain. No nausea, vomiting or any diarrhea. EXAMINATION: Blood pressure 120/72 with a pulse of 76, temperature 97.4. He is 92% on high-flow oxygen. General description is a middle-aged male lying in bed in no distress. RESPIRATORY SYSTEM: Unlabored breathing with decreased breath sounds at the bases, no wheeze,. HEART: S1, S2. Regular rate and rhythm. ABDOMEN: Soft. No tenderness. LABS: Hemoglobin 8.8, white count of 13.1. BUN of 15, creatinine 0.68. DIAGNOSTIC IMPRESSION AND PLAN: Patient with sepsis secondary to aspiration pneumonia. Patient overall clinical improvement, currently on Unasyn. Will continue transition to oral Augmentin on discharge. Family present at bedside. Their questions were answered. MMODL / IJN: [id number] /
[2018-06-14] MEDS: MONTELUKAST 10 MG TAB PO SCH (20:22)
[2018-06-14 21:27] LABS: Glucose,Whole Blood 111 mg/dL (75-99)
--- NOTE | 2018-06-14 23:35 | PN ---
PROGRESS NOTE SUBJECTIVE: A 52-year-old white male with aspiration pneumonia recently, off the vent, abdomen alcohol withdrawal, remains on DuoNeb, Solu-Medrol, multivitamin, Zosyn, high-flow oxygen. CARDIOVASCULAR: S1-S2. PSYCH: He is more alert and giving appropriate answers. GI: Soft. He is 92% on high-flow oxygen. NEUROLOGIC: Range of motion full x4. ASSESSMENT: 1. Aspiration pneumonia, currently on Unasyn, switched to oral Augmentin in next 48-72 hours when he goes to rehab. 2. Continue Clinical [employer] Withdrawn Assessment protocol. MMODL / IJN: [id number] /
[2018-06-15] MEDS: AMPICILLIN-SULBACTAM 3 GM in SODIUM CHLORIDE 0.9% 100 ML IVPB SCH ×3 (05:50→17:26)
[2018-06-15 06:23] LABS: Glucose,Whole Blood 184 mg/dL (75-99)
[2018-06-15] MEDS: INSULIN ASPART 100 UNIT/ML 1 ML 10 ML VIAL SQ SCH ×8 (07:07→22:09)
[2018-06-15] MEDS: BUDESONIDE 1 MG/2 ML NEBU INHALATION SCH ×2 (07:47→19:38)
[2018-06-15] MEDS: IPRATROPIUM-ALBUTEROL 3 ML NEB INHALATION SCH ×4 (07:47→19:38)
[2018-06-15] MEDS: FUROSEMIDE 10 MG/ML 2 ML VIAL IV SCH (09:32)
[2018-06-15] MEDS: HEPARIN SODIUM,PORCINE 5,000 UNIT/ML 1 ML VIAL SQ SCH ×2 (09:32→17:25)
[2018-06-15] MEDS: methylPREDNISolone SOD SUCCI 40 MG/ML 1 ML VIAL IV SCH ×2 (09:32→17:24)
[2018-06-15] MEDS: guaiFENesin 600 MG TABLET.ER PO SCH ×2 (09:32→22:08)
[2018-06-15] MEDS: THIAMINE 100 MG TAB PO SCH (09:33)
[2018-06-15] MEDS: PANTOPRAZOLE 40 MG/10 ML VIAL IV SCH (09:33)
[2018-06-15 11:41] LABS: Glucose,Whole Blood 88 mg/dL (75-99)
--- NOTE | 2018-06-15 13:15 | PN ---
PROGRESS NOTE DATE OF SERVICE: June 15, 2018. He has been hemodynamically stable. Less short of breath. However, he is requiring high-flow oxygen at this time. On physical examination, respiratory rate is 16, pulse rate 85, temperature 98, O2 saturation on high-flow cannula is 91%. HEENT reveals nasal cannula in place. Chest reveals faint expiratory wheeze. Cardiovascular system is S1, S2. Abdomen is soft. There is no pedal edema. IMPRESSION: At this time is: 1. Acute on chronic hypoxic respiratory failure requiring mechanical ventilation. 2. Alcoholism. 3. Hyponatremia, hyperglycemia, and previous alcohol abuse. 4. Aspiration type pneumonia. Continue him on his current medications. Increase his activity level. He may be a candidate for inpatient rehab and we will attempt to facilitate this. Depending on how he does, we should make further changes to his care. He was counseled regarding his condition and this approach. MMODL / IJN: [id number] /
--- NOTE | 2018-06-15 15:30 | P.PN ---
Subjective Progress Note Date: 06/15/18 This patient is a 52-year-old male who is seen today in the intensive care unit for altered mental status and obtundation. Patient was extubated off of the ventilator this morning. He is currently on BiPAP and seems to be doing fairly well. It was recommended the patient to undergo a lumbar puncture for further evaluation of sepsis. Lumbar puncture was completed today by anesthesia. His spinal fluid results came back negative for any signs of ACID MAKER infection. Patient continues on his CIWA protocol. He is receiving Unasyn and vancomycin for antibiotic coverage. Infectious disease is also following. As noted his spinal tap was completed today results are essentially negative for any evidence of ACID MAKER infection. Cytology results are still pending. His C. difficile study came back negative. He did undergo routine EEG today which is reviewed and reveals severe slowing with background activity of 4-5 Hz with no epileptiform discharges. We reviewed all of these test results today in detail with the patient's mother who was at bedside in the intensive care unit. Patient's mother was at bedside and she was updated on his improvement in his neurological status following extubation today. Patient initially tolerated extubation quite well but then did show signs of respiratory decompensation. His oxygen saturation did fall and he was laced on BiPAP for a short time. He is now been able to get off of BiPAP and is only having nasal cannula oxygen for further management. The patient is doing much better after extubation. He is much more awake and alert today. His mother was at bedside and she was updated on his improvement today in general. He is able to answer all questions appropriately. We did check on his recent spinal fluid cytology report which did come back negative. We updated the mother as well as the patient. He was seen by cardiology and he has had no further episodes of bradycardia. His echocardiogram revealed normal LV function with an ejection fraction of 60% with no evidence of any valvular abnormalities. Patient did have a repeat EEG today which was reviewed. EEG shows significant improvement from his initial study that was done on 06/08/2018. Background is now 7-8 Hz. We have reviewed all of these test results in detail today with the patient and his mother at bedside. The patient is very much awake today in the ICU. He is answering all questions appropriately. According to his mother he has made a tremendous improvement in his overall condition since admission to the hospital. Patient continues on high flow oxygen at this time with nasal cannula. Pulmonary medicine is trying to wean him off of this gradually. He is doing fine on selective care unit since transfer out of the intensive care unit. He continues to show improvement in his overall mental status. He is to continue on CIWA protocol as he has history of alcohol abuse in the past. He is awaiting transfer to subacute rehab early next week. We will continue to follow him closely with multiple other specialists. His overall prognosis at this time remains guarded. Objective - Vital Signs Vital signs: Vital Signs Temp 97.4 F L 06/15/18 04:00 Pulse 69 06/15/18 04:00 Resp 18 06/15/18 04:00 BP 132/85 06/15/18 04:00 Pulse Ox 96 06/15/18 04:00 Intake & Output 06/14/18 06/15/18 06/15/18 18:59 06:59 18:59 Intake Total 640 360 Output Total 4300 1850 Balance -3660 -1850 360 Weight 86.5 kg Intake: Oral 640 360 Output: Urine 4300 1850 Other: Voiding Method Indwelling Catheter Urinal ABP, PAP, CO, CI - Last Documented Arterial Blood Pressure 125/59 - Exam Physical examination: PHYSICAL EXAMINATION: Patient was extubated today and he is currently on BiPAP. VITAL SIGNS: Blood pressure is [109/65]. Heart rate is [85]. Respiration is [16] . Temperature is [97.4]. HEENT: Head is atraumatic, neck is supple, there were no carotid bruits. CHEST: Lungs are clear to auscultation and percussion. CARDIAC: S1, S2 normal rate and rhythm. There is no murmur. ABDOMEN: Soft and nontender. Bowel sounds are present. EXTREMITIES: There is no pedal edema. Peripheral pulses are present. Neurological examination: Patient is resting comfortably in the ICU today and seems to be in no distress. He is currently on high flow oxygen with BiPAP. He is more awake and alert and is following simple commands. Cranial nerves II through XII are grossly intact. Deep tendon reflexes are hypoactive 1+. Plantar responses flexor bilaterally. Coordination and gait cannot be assessed in this patient at this time. - Labs CBC & Chem 7: 06/14/18 05:35 06/14/18 05:35 Labs: Abnormal Lab Results - Last 24 Hours (Table) 06/14/18 06/14/18 06/14/18 Range/Units 11:29 16:28 21:26 POC Glucose (mg/dL) 110 H 148 H 111 H (75-99) mg/dL 06/15/18 Range/Units 06:21 POC Glucose (mg/dL) 184 H (75-99) mg/dL Assessment and Plan (1) Acute metabolic encephalopathy Current Visit: Yes Status: Acute Code(s): G93.41 - METABOLIC ENCEPHALOPATHY SNOMED Code(s): 51209603 (2) Respiratory failure Current Visit: Yes Status: Acute Code(s): J96.90 - RESPIRATORY FAILURE, UNSP , UNSP W HYPOXIA OR HYPERCAPNIA SNOMED Code(s): 090977708 (3) Sepsis Current Visit: Yes Status: Acute Code(s): A41.9 - SEPSIS, UNSPECIFIED ORGANISM SNOMED Code(s): 00786430 (4) Alcohol dependence with withdrawal Current Visit: No Status: Acute Code(s): F10.239 - ALCOHOL DEPENDENCE WITH WITHDRAWAL, UNSPECIFIED SNOMED Code(s): 45978023 (5) Seizure disorder Current Visit: No Status: Acute Code(s): G40.909 - EPILEPSY, UNSP, NOT INTRACTABLE, WITHOUT STATUS EPILEPTICUS SNOMED Code(s): 377369535 Plan: This patient is a 52-year-old male who continues to show significant improvement in his mental status since transfer out of the intensive care unit. He was initially admitted with sepsis and aspiration pneumonia. He is currently on antibiotics for treatment. He continues on a CINM protocol as he has a history of alcohol use in the past. Neurologically he is showing improvement in his mental status significantly since coming out of the intensive care unit. He is following all commands. He remains on high flow oxygen and is being followed closely by pulmonary medicine. He is awaiting transfer to subacute rehab early next week. Overall he is making good progress neurologically and we will continue to follow him closely. Case was discussed today with the patient and his mother was at bedside. All of their questions were answered. Mother is very happy with his progress and is hopeful he will continue to seek appropriate therapy and counseling once he is discharged. His overall prognosis at this time remains guarded.
--- NOTE | 2018-06-15 16:15 | PN ---
PROGRESS NOTE SUBJECTIVE: 52-year-old white male was admitted with respiratory failure, sepsis, and alcohol withdrawal. He is going to go to rehab on Sunday. He has a wean off high-flow oxygen at this time. Cardiovascular: S1-S2. Lungs scattered rhonchi and wheeze. Hematology negative Homans. GI soft and nontender. ASSESSMENT: 1. Acute respiratory failure. 2. Sepsis. 3. Aspiration pneumonia. Continue current treatment. Follow up in the next 24-48 hours. Rehab facility after oxygen is weaned. MMODL / IJN: [id number] /
[2018-06-15 16:16] LABS: Glucose,Whole Blood 125 mg/dL (75-99)
[2018-06-15 20:59] LABS: Glucose,Whole Blood 157 mg/dL (75-99)
[2018-06-15] MEDS: SODIUM CHLORIDE 0.9% 1,000 ML IV SCH (22:06)
[2018-06-15] MEDS: MONTELUKAST 10 MG TAB PO SCH (22:08)
--- NOTE | 2018-06-16 | PN ---
PROGRESS NOTE DATE OF SERVICE: 06/15/2018. REASON FOR FOLLOWUP: Aspiration pneumonia. INTERVAL HISTORY: The patient is afebrile, has been breathing more comfortably. Denies significant chest pain. Occasional cough. No abdominal pain or any diarrhea. EXAMINATION: Blood pressure 113/64 with a pulse of 94, temperature 98. He is 91% on 35% nasal cannula oxygen. General description is a middle-aged male up in the bed in no distress. RESPIRATORY SYSTEM: Unlabored breathing with decreased breath sounds at the bases. No wheeze. HEART: S1, S2. Regular rate and rhythm. ABDOMEN: Soft. No tenderness. LABS: No new labs have been obtained today. DIAGNOSTIC IMPRESSION AND PLAN: Patient with aspiration pneumonia for which the patient is currently covered with Unasyn. Transition to oral Augmentin on discharge. Continue supportive care. Family present at the bedside. Their questions were answered. MMODL / IJN: [id number] /
[2018-06-16] MEDS: AMPICILLIN-SULBACTAM 3 GM in SODIUM CHLORIDE 0.9% 100 ML IVPB SCH ×4 (00:01→17:07)
[2018-06-16] MEDS: methylPREDNISolone SOD SUCCI 40 MG/ML 1 ML VIAL IV SCH ×3 (00:02→17:09)
[2018-06-16] MEDS: HEPARIN SODIUM,PORCINE 5,000 UNIT/ML 1 ML VIAL SQ SCH ×3 (00:02→17:09)
[2018-06-16] MEDS: PANTOPRAZOLE 40 MG/10 ML VIAL IV SCH (05:50)
[2018-06-16] MEDS: ACETAMINOPHEN TAB 325 MG TAB PO PRN (05:50)
[2018-06-16 06:01] LABS: Glucose,Whole Blood 142 mg/dL (75-99)
[2018-06-16] MEDS: INSULIN ASPART 100 UNIT/ML 1 ML 10 ML VIAL SQ SCH ×8 (07:16→21:35)
[2018-06-16] MEDS: FUROSEMIDE 10 MG/ML 2 ML VIAL IV SCH (08:03)
[2018-06-16] MEDS: THIAMINE 100 MG TAB PO SCH (08:03)
[2018-06-16] MEDS: guaiFENesin 600 MG TABLET.ER PO SCH ×2 (08:03→20:13)
[2018-06-16] MEDS: IPRATROPIUM-ALBUTEROL 3 ML NEB INHALATION SCH ×4 (09:04→19:08)
[2018-06-16] MEDS: BUDESONIDE 1 MG/2 ML NEBU INHALATION SCH ×2 (09:04→19:08)
[2018-06-16 11:52] LABS: Glucose,Whole Blood 150 mg/dL (75-99)
--- NOTE | 2018-06-16 12:51 | P.PN ---
Subjective Progress Note Date: 06/16/18 This patient is a 52-year-old male who is seen today in the intensive care unit for altered mental status and obtundation. Patient was extubated off of the ventilator this morning. He is currently on BiPAP and seems to be doing fairly well. It was recommended the patient to undergo a lumbar puncture for further evaluation of sepsis. Lumbar puncture was completed today by anesthesia. His spinal fluid results came back negative for any signs of [employer] infection. Patient continues on his CIWA protocol. He is receiving Unasyn and vancomycin for antibiotic coverage. Infectious disease is also following. As noted his spinal tap was completed today results are essentially negative for any evidence of L[employer]ER infection. Cytology results are still pending. His C. difficile study came back negative. He did undergo routine EEG today which is reviewed and reveals severe slowing with background activity of 4-5 Hz with no epileptiform discharges. We reviewed all of these test results today in detail with the patient's mother who was at bedside in the intensive care unit. Patient's mother was at bedside and she was updated on his improvement in his neurological status following extubation today. Patient initially tolerated extubation quite well but then did show signs of respiratory decompensation. His oxygen saturation did fall and he was laced on BiPAP for a short time. He is now been able to get off of BiPAP and is only having nasal cannula oxygen for further management. The patient is doing much better after extubation. He is much more awake and alert today. His mother was at bedside and she was updated on his improvement today in general. He is able to answer all questions appropriately. We did check on his recent spinal fluid cytology report which did come back negative. We updated the mother as well as the patient. He was seen by cardiology and he has had no further episodes of bradycardia. His echocardiogram revealed normal LV function with an ejection fraction of 60% with no evidence of any valvular abnormalities. Patient did have a repeat EEG today which was reviewed. EEG shows significant improvement from his initial study that was done on 06/08/2018. Background is now 7-8 Hz. We have reviewed all of these test results in detail today with the patient and his mother at bedside. The patient is very much awake today in the ICU. He is answering all questions appropriately. According to his mother he has made a tremendous improvement in his overall condition since admission to the hospital. Patient continues on high flow oxygen at this time with nasal cannula. Pulmonary medicine is trying to wean him off of this gradually. He is doing fine on selective care unit since transfer out of the intensive care unit. He continues to show improvement in his overall mental status. He is to continue on CIWA protocol as he has history of alcohol abuse in the past. He is awaiting transfer to subacute rehab early next week. He is to be weaned off of high flow oxygen and will be monitored. He is being treated for aspiration pneumonia by infectious disease and his antibiotics are being transitioned to Augmentin. Neurologically he remains very much intact. There is been significant improvement in his overall mental status since coming out of the ICU. Case was discussed today at length with the patient and his mother at bedside. All of their questions were answered. We will continue to follow him closely with multiple other specialists. His overall prognosis at this time remains guarded. Objective - Vital Signs Vital signs: Vital Signs Temp 98.1 F 06/16/18 08:00 Pulse 83 06/16/18 08:00 Resp 16 06/16/18 08:00 BP 120/67 06/16/18 08:00 Pulse Ox 90 L 06/16/18 08:00 Intake & Output 06/15/18 06/16/18 06/16/18 18:59 06:59 18:59 Intake Total 1162 180 Output Total 1751 2900 Balance -589 -2900 180 Weight 81.5 kg Intake: IV 220 Ampicillin-Sulbactam 3 gm 100 In Sodium Chloride 0.9% 100 ml @ 100 mls/hr IVPB Q6HR HERIBERTO Rx#:[id number] Sodium Chloride 0.9% 1, 120 000 ml @ 10 mls/hr IV . Q24H HERIBERTO Rx#:[id number] Oral 942 180 Output: Urine 1750 2900 Stool 1 Other: Voiding Method Urinal Urinal # Bowel Movements 1 ABP, PAP, CO, CI - Last Documented Arterial Blood Pressure 125/59 - Exam Physical examination: PHYSICAL EXAMINATION: Patient was extubated today and he is currently on BiPAP. VITAL SIGNS: Blood pressure is [140/81]. Heart rate is [62]. Respiration is [18] . Temperature is [97.1]. HEENT: Head is atraumatic, neck is supple, there were no carotid bruits. CHEST: Lungs are clear to auscultation and percussion. CARDIAC: S1, S2 normal rate and rhythm. There is no murmur. ABDOMEN: Soft and nontender. Bowel sounds are present. EXTREMITIES: There is no pedal edema. Peripheral pulses are present. Neurological examination: Patient is resting comfortably and has his oxygen in place. He is currently on high flow oxygen with BiPAP. He is more awake and alert and is following simple commands. Cranial nerves II through XII are grossly intact. Deep tendon reflexes are hypoactive 1+. Plantar responses flexor bilaterally. Coordination and gait cannot be assessed in this patient at this time. - Labs CBC & Chem 7: 06/14/18 05:35 06/14/18 05:35 Labs: Abnormal Lab Results - Last 24 Hours (Table) 06/15/18 06/15/18 06/16/18 Range/Units 16:06 20:58 05:59 POC Glucose (mg/dL) 125 H 157 H 142 H (75-99) mg/dL Assessment and Plan (1) Acute metabolic encephalopathy Current Visit: Yes Status: Acute Code(s): G93.41 - METABOLIC ENCEPHALOPATHY SNOMED Code(s): 76506513 (2) Respiratory failure Current Visit: Yes Status: Acute Code(s): J96.90 - RESPIRATORY FAILURE, UNSP , UNSP W HYPOXIA OR HYPERCAPNIA SNOMED Code(s): 716359003 (3) Sepsis Current Visit: Yes Status: Acute Code(s): A41.9 - SEPSIS, UNSPECIFIED ORGANISM SNOMED Code(s): 47676571 (4) Alcohol dependence with withdrawal Current Visit: No Status: Acute Code(s): F10.239 - ALCOHOL DEPENDENCE WITH WITHDRAWAL, UNSPECIFIED SNOMED Code(s): 20325909 (5) Seizure disorder Current Visit: No Status: Acute Code(s): G40.909 - EPILEPSY, UNSP, NOT INTRACTABLE, WITHOUT STATUS EPILEPTICUS SNOMED Code(s): 376208569 Plan: This patient is a 52-year-old male who continues to show significant improvement in his mental status since transfer out of the intensive care unit. He was initially admitted with sepsis and aspiration pneumonia. He is currently on antibiotics for treatment. He continues on a CIWA protocol as he has a history of alcohol use in the past. Neurologically he is showing improvement in his mental status significantly since coming out of the intensive care unit. He is following all commands. He remains on high flow oxygen and is being followed closely by pulmonary medicine. He is awaiting transfer to subacute rehab early next week. Overall he is making good progress neurologically and we will continue to follow him closely. Case was discussed today with the patient and his mother was at bedside. All of their questions were answered. Mother is very happy with his progress and is hopeful he will continue to seek appropriate therapy and counseling once he is discharged. We are hoping for discharge to [facility] rehab possibly tomorrow for this patient. He continues to show shouldn't having an improvement in his overall neurological status. He is to continue with physical therapy as well. His overall prognosis at this time remains guarded. We will continue close neurological follow-up with the patient during this admission.
--- NOTE | 2018-06-16 13:28 | PN ---
PROGRESS NOTE DATE OF SERVICE: June 16, 2018. He is slightly more short of breath. Continued to require high-flow oxygen. PHYSICAL EXAMINATION: Blood pressure is 117/70, respiratory rate is 16, pulse rate 62, O2 saturation on 10 L by high-flow cannula is 100%. HEENT reveals cannula in place. Chest reveals expiratory wheeze. Cardiovascular system reveals an S1, S2. ABDOMEN: Soft. There is trace pedal edema. IMPRESSION: At this time. 1. Acute respiratory failure. 2. Asthma with chronic obstructive pulmonary disease with acute exacerbation. 3. Aspiration type pneumonia. At this point in time, continue IV steroids at the current dose. May require an increase in steroids or a slow taper depending on how he does in the next 24 hours. Continue bronchodilators. Current medications which were reviewed. Discharge planning to an inpatient rehab unit may be appropriate. ANGELICA / SHAW: [id number] /
[2018-06-16 16:20] LABS: Glucose,Whole Blood 150 mg/dL (75-99)
[2018-06-16] MEDS: SODIUM CHLORIDE 0.9% 1,000 ML IV SCH (20:13)
[2018-06-16] MEDS: MONTELUKAST 10 MG TAB PO SCH (20:13)
[2018-06-16 21:01] LABS: Glucose,Whole Blood 158 mg/dL (75-99)
[2018-06-17] MEDS: methylPREDNISolone SOD SUCCI 40 MG/ML 1 ML VIAL IV SCH ×4 (00:02→23:06)
[2018-06-17] MEDS: AMPICILLIN-SULBACTAM 3 GM in SODIUM CHLORIDE 0.9% 100 ML IVPB SCH ×5 (00:02→23:06)
[2018-06-17] MEDS: HEPARIN SODIUM,PORCINE 5,000 UNIT/ML 1 ML VIAL SQ SCH ×4 (00:02→23:07)
--- NOTE | 2018-06-17 05:52 | PN ---
PROGRESS NOTE DATE OF SERVICE: 06/16/2018 REASON FOR FOLLOWUP: Aspiration pneumonia. INTERVAL HISTORY: The patient is afebrile. He is breathing comfortably. Denies having any chest pain with minimal cough. No abdominal pain. No nausea, vomiting, or any diarrhea. PHYSICAL EXAMINATION: On examination, blood pressure 117/70 with a pulse of 62, temperature 98. He is 100% on 10 L high-flow oxygen. General description is a middle age male up in the bed in no distress. RESPIRATORY SYSTEM: Unlabored breathing with decreased breath sounds at the bases, no wheeze. HEART: S1, S2. Regular rate and rhythm. ABDOMEN: Soft, no tenderness. LABS: No new labs have been obtained today. DIAGNOSTIC IMPRESSION AND PLAN: Patient with an aspiration pneumonia. The patient admitted to the hospital with sepsis and acute respiratory failure. Patient seemed to have shown clinical improvement. Currently on Unasyn, transition him to oral Augmentin short course on discharge. Continue supportive care. MMODL / IJN: [id number] /
[2018-06-17] MEDS: INSULIN ASPART 100 UNIT/ML 1 ML 10 ML VIAL SQ SCH ×8 (06:17→20:58)
[2018-06-17 06:18] LABS: Glucose,Whole Blood 93 mg/dL (75-99)
--- NOTE | 2018-06-17 06:27 | P.CONS ---
History of Present Illness - Chief Complaint Medical debility - History of Present Illness I had the opportunity to see patient for inpatient rehab consultation with regard to medical debility. He was admitted to [facility] June 05 with acute respiratory failure, hypoxic and hypercapnic. Seen by Dr. Ambrose. Seen by Dr. Yasemin Parish for encephalopathy related to alcohol intoxication. Seen by Dr. Wallace who notes improving bradycardia. Also followed by Dr. Yu. Chest x-rays followed for improved aeration and decreasing effusion. PT reports modified independent to supervision but fatigues quickly. OT prescribed. Previous functional history as elicited patient: 52-year-old right-handed white male who is single. Unemployed/disabled. Reports that he is currently living at the hospital, suspect is homeless. Review of Systems Review of systems: ENT: Denies sneezes or discharge. Eyes: Denies discharge or photophobia. Cardiac: Denies chest pain or palpitation. Pulmonary: At least mild shortness of breath. Gastrointestinal: Denies nausea, emesis, constipation, diarrhea. Genitourinary: Denies discharge or frequency. Musculoskeletal: Denies muscle or bone aches. Neurologic: At least mild generalized weakness. Endocrine: Denies shakes or sweats. Oncology: Denies cancers. Dermatologic: Denies rash, itching, pruritus. ALLERGY/immunology: Denies sneezes, rashes. Past Medical History Past Medical History: COPD, GERD/Reflux, Seizure Disorder, Syncope Additional Past Medical History / Comment(s): Severe ETOH abuse, alcohol withdrawal seizures/DTs, encephalopathy d/t alcohol, falls, thrombocytopenia, mastoiditis with surgery. History of Any Multi-Drug Resistant Organisms: None Reported Past Surgical History: Ear Surgery, Tonsillectomy Additional Past Surgical History / Comment(s): Bilateral mastoidectomies, sinus surgery and vocal cord scraping. Past Anesthesia/Blood Transfusion Reactions: No Reported Reaction Smoking Status: Current every day smoker - Past Family History Father Family Medical History: Cancer Additional Family Medical History / Comment(s): Father was a stomach cancer survivor. He of spinal stenosis at the age of 88yrs. Mother Family Medical History: Hyperlipidemia Additional Family Medical History / Comment(s): Mother is living and is 85 yrs old. Brother(s) Additional Family Medical History / Comment(s): Bipolar, schizoprenia Medications and Allergies Home Medications Medication Instructions Recorded Confirmed Type Albuterol Inhaler [Ventolin Hfa 1 - 2 puff INHALATION RT-Q4H PRN 06/05/18 History Inhaler] Ferrous Sulfate [Feosol] 325 mg PO DAILY 06/05/18 06/05/18 History Ibuprofen [Motrin] 800 mg PO TID PRN 06/05/18 06/05/18 History Omeprazole 20 mg PO DAILY 06/05/18 06/05/18 History Allergies Allergy/AdvReac Type Severity Reaction Status Date / Time No Known Allergies Allergy Verified 06/05/18 14:07 Physical Exam Vitals: Vital Signs Temp Pulse Pulse Pulse Resp BP Pulse Ox 06/17/18 03:40 98.3 F 70 19 127/84 97 06/17/18 03:39 72 79 19 06/17/18 00:00 98.0 F 72 79 19 130/80 96 06/16/18 20:00 98.4 F 80 79 20 123/76 94 L 06/16/18 19:26 74 06/16/18 19:09 72 06/16/18 16:12 76 06/16/18 16:00 79 16 111/63 97 06/16/18 15:56 72 99 06/16/18 15:55 16 06/16/18 12:24 69 06/16/18 12:13 68 06/16/18 12:12 98 06/16/18 12:00 62 16 117/70 100 06/16/18 11:25 16 06/16/18 09:14 83 06/16/18 09:04 80 95 06/16/18 08:00 98.1 F 83 16 120/67 90 L Intake and Output 06/16/18 06/16/18 06/17/18 14:59 22:59 06:59 Intake Total 402 150 Output Total 2600 1951 801 [facility] -[id number] [id number] [phone] Intake: IV 150 Ampicillin-Sulbactam 3 gm 100 In Sodium Chloride 0.9% 100 ml @ 100 mls/hr IVPB Q6HR HERIBERTO Rx#:[id number] Sodium Chloride 0.9% 1, 50 000 ml @ 10 mls/hr IV . Q24H HERIBERTO Rx#:[id number] Oral 402 Output: Urine 2600 1950 800 Stool 1 1 Other: Voiding Method Urinal Urinal Urinal # Voids 4 # Bowel Movements 1 Weight 81.5 kg Skin: Good color, texture, turgor. General: Medium build and comfortable appearance. Head: Normocephalic, atraumatic. Eyes: Symmetric. Pupils equal round. Ears: Symmetric. Hearing within normal limits. Mouth: Clear. Neck: Supple. Carotid without bruit. Cardiac: Regular rate and rhythm. Lungs: Clear anteriorly and posteriorly. Abdomen: Soft active nontender. Extremities: Normal tone. Neurological: Mental status: Alert, cooperative, pleasant. Cranial nerves: Symmetric facial tone and trapezius. Motor: Actively elevates all 4 limbs. Sensation: Intact throughout. DTRs: Symmetric and equal throughout. Mobility: Did not attempt to sit or stand this a.m. Results CBC & Chem 7: 06/14/18 05:35 06/14/18 05:35 Labs: Abnormal Lab Results - Last 24 Hours (Table) 06/16/18 06/16/18 06/16/18 Range/Units 11:45 16:16 20:59 POC Glucose (mg/dL) 150 H 150 H 158 H (75-99) mg/dL Assessment and Plan (1) Respiratory failure Current Visit: Yes Status: Acute Code(s): J96.90 - RESPIRATORY FAILURE, UNSP , UNSP W HYPOXIA OR HYPERCAPNIA SNOMED Code(s): 101874297 Plan: Impression: 1. Medical debility. 2. Respiratory failure, hypoxic and hypercapnic. 3. Metabolic encephalopathy due to alcohol intoxication. 4. COPD. 5. History of syncope and seizure. Comments and plan: At this time PT ongoing and OT prescribed. Follow therapies with yourself. Note however PT reports patient modified independent and may be too good for inpatient rehab. Also unsure of discharge plan or destination.
--- NOTE | 2018-06-17 07:02 | PN ---
PROGRESS NOTE SUBJECTIVE: This is a 52-year-old white male who is off the ventilator. He is on high-flow oxygen, trying to wean down on that. He is more alert and oriented. He is breathing better. Pulse is 70s, respiratory 16 to 18, blood pressure 111/63. CARDIOVASCULAR: S1, S2. Lungs are clear. GI: Soft. HEMATOLOGY: Negative Homans. O2 is 97 to 99 on 10 flow trach collar. ASSESSMENT: 1. Acute respiratory failure secondary to aspiration pneumonia. 2. Alcohol withdrawal. 3. Metabolic encephalopathy, improved. 4. Protein calorie malnutrition. 5. Asthma. 6. Chronic obstructive pulmonary disease. 7. Aspiration pneumonia. Continue with IV steroids, bronchodilators, inpatient rehab unit discharge. MMODL / IJN: [id number] /
[2018-06-17] MEDS: BUDESONIDE 1 MG/2 ML NEBU INHALATION SCH ×2 (07:03→21:08)
[2018-06-17] MEDS: IPRATROPIUM-ALBUTEROL 3 ML NEB INHALATION SCH ×4 (07:03→21:08)
[2018-06-17] MEDS: FUROSEMIDE 10 MG/ML 2 ML VIAL IV SCH (08:35)
[2018-06-17] MEDS: guaiFENesin 600 MG TABLET.ER PO SCH ×2 (08:36→19:58)
[2018-06-17] MEDS: THIAMINE 100 MG TAB PO SCH (08:36)
[2018-06-17] MEDS: PANTOPRAZOLE 40 MG/10 ML VIAL IV SCH (08:36)
--- NOTE | 2018-06-17 09:26 | P.PN ---
Subjective Progress Note Date: 06/17/18 History of present illness: This is a 52-year-old gentleman who [facility] History is unable to be obtained from the patient as he is sedated on the ventilator. Per the emergency room note the patient was found unresponsive and EMS was called. The Patient's O2 saturation was 50%. He had minimal improvement on nonrebreather. The patient was to Make an hypoxic and subsequently intubated in the emergency room. The patient was found to have an elevated lactic acid of 12.6. He was profoundly acidotic with a pH of less than 7.0. The patient was hypotensive and started on Levophed. He is currently on 6 mcg/m of Levophed. He is having a large amount of green and secretions from the ET tube. It is assumed the patient aspirated. The patient is on 100% FiO2 and PEEP of 8. Bronchoscopy is performed to clear secretions. The patient has been given 2 L of IV fluids in the emergency room. He has maintenance fluids running at 100 mL per hour. He does intermittently respond to commands. The patient is a known alcoholic. He has had multiple admissions for alcohol intoxication and subsequently go through withdrawals. The patient has refused alcohol rehab in the past. The patient has required BiPAP in the past. He does drink about a pound of vodka daily. The patient's chest x-ray shows right lower lobe infiltrate. EKG shows sinus tachycardia. He also has slightly elevated troponins. Interval History: 06/06/18- patient is being seen examined and evaluated today on rounds. He is on mechanical ventilation with propofol for sedation. Current mechanical ventilation settings are assist control mode with a respiratory rate of 20, tidal volume of 550, FiO2 of 70%, and a PEEP of 8. Currently he is on Levophed at 8 mics, and propofol at 30 mics. OG tube has green bile like output, ET tube continues to have green tea-like secretions. He has been making urine. He has got a total of 4 L of fluid resuscitation. His ABGs from this morning reveal a pH of 7.33, pCO2 of 55, pO2 of 85 and HCO3 of 29. Dietary is on board and will be starting tube feeds today. His potassium is 3.5 is being replaced his magnesium is 1.3 and being replaced. His chest x-ray was reviewed and lines are stable ET tube can be advanced to 3 cm. He has a persistent right loculated pleural effusion and a trace left pleural effusion. Infectious disease has been consulted. He continues on antibiotics. Mother is at bedside updated on plan of care. No plans for extubation today. 06/07/18- patient is being seen examined and evaluated today on rounds in the intensive care unit. Patient continues on mechanical ventilation with propofol for sedation. Current mechanical ventilator settings are assist-control mode with respiratory rate of 20, tidal volume of 550, FiO2 80%, and a PEEP of 8. Patient's blood gases from this morning reveal a pH of 7.38 pCO2 of 55, pO2 of 67, and HCO3 of 33. The ABGs were done on 70% of FiO2 and were titrated up to 80% after that. He did know to have a slight increase in his temperature this morning and Ofirmev given. He also was noted to be tachycardiac and Ativan was given for the CIWA protocol. He continues to have moderate amount of secretions from ET tube. He has been tolerating his tube feedings. He has been making good urine approximately 70 per hour. Infectious disease did see the patient yesterday. His ammonia also did improve to 31 today. 06/08/18 to 06/10/[address] Velazquez's notes for coverage 06/11/18- patient is being seen examined and evaluated today on rounds. He is resting up in bed on BiPAP, BiPAP settings are IPAP of 15, EPAP of 10, FiO2 70% . He is noted to have oxygen desaturations with removal of the BiPAP. He has taken it off intermittently for quick sips of water without issues. He has no issues with swallowing water. He has been making good urine. He is alert and active. Mother at bedside. Electrolytes being replaced. Chest x-ray has been reviewed. His hemoglobin is 7.7 today. He is afebrile denies any further complaints. 06/12/18- patient is being seen examined and evaluated today on rounds in the intensive care unit. The patient was discharged in addition from BiPAP to high flow airflow, currently he has an O2 flow rate of 50 L with an FiO2 of 55%, RT continues to wean down as tolerated. He did have an elevated CO2 this morning of 47 and Diamox has been started for that. His WBC count has improved to 10.7 today. His hemoglobin is stable at 7.2overt signs of bleeding. He has been tolerating his food and fluids. His mother is at bedside and updated on plan of care. He has not required any vasopressors. His respiratory status slowly improved. Electrolytes continued to be monitored and replaced. 06/13/18- patient is being seen examined and evaluated today on rounds in the intensive care unit. The patient continues on high flow airflow at 45 L and 43 % FiO2. He feels his breathing is improved. He does continue to have significant wheeze. His CO2 level is 38. Chest x-ray was reviewed and does show basilar consolidation right greater than the left with a small effusion. Potassium and magnesium continued to be replaced. He has had a good appetite. Continues to make good urine. Afebrile no further complaints. Mother at bedside updated on plan of care 06/14/18- patient is being seen examined and evaluated today on rounds. He was downgraded from the intensive care unit yesterday. He is now on the selective care unit. He is doing relatively well. He continues on high flow airflow. Settings have been weaned down and he is on a O2 flow rate of 40 L with an FiO2 of 35%. We will continue to try to wean him off this. He has been hemodynamically stable. All labs and reports have been reviewed and are improving. Chest x-ray was reviewed from this morning and shows improving aeration of the right lung base with persistent multifocal PACs and trace left pleural effusion 06/15/18-06/16/18- please DarrianrRobin Avila note 06/17/18- patient is being seen examined and evaluated today on rounds. He is resting up in bed on 8 L of supplemental oxygen via nasal cannula. He has been working with therapy. He is being evaluated by Dr. Hanson for possible inpatient rehab. Chest x-rays continued to improve. He is afebrile no further complaints. Objective - Vital Signs Vital signs: Vital Signs Temp 97.7 F 06/17/18 08:00 Pulse 84 06/17/18 08:00 Resp 20 06/17/18 08:00 BP 112/60 06/17/18 08:00 Pulse Ox 92 L 06/17/18 08:00 Intake & Output 06/16/18 06/17/18 06/17/18 18:59 06:59 18:59 Intake Total 402 150 Output Total 4401 951 Balance -1128 -801 Weight 81.5 kg Intake: IV 150 Ampicillin-Sulbactam 3 gm 100 In Sodium Chloride 0.9% 100 ml @ 100 mls/hr IVPB Q6HR [facility] Rx#:[id number] Sodium Chloride 0.9% 1, 50 000 ml @ 10 mls/hr IV . Q24H [facility] Rx#:[id number] Oral 402 Output: Urine 4400 950 Stool 1 1 Other: Voiding Method Urinal Urinal # Voids 4 # Bowel Movements 1 ABP, PAP, CO, CI - Last Documented Arterial Blood Pressure 125/59 - Exam GENERAL EXAM: Alert, active, comfortable in no apparent distress on high flow airvo. HEAD: Normocephalic. EYES: Normal reaction of pupils, equal size. NOSE: Clear with pink turbinates. THROAT: No erythema or exudates. NECK: No masses, no JVD. CHEST: No chest wall deformity. LUNGS: Lungs noted to be coarse throughout with some scattered rhonchi CVS: S1 and S2 normal with no audible mumurs, regular rhythm. ABDOMEN: No hepatosplenomegaly, normal bowel sounds, no guarding or rigidity. EXTREMITIES: no edema noted, pedal pulses palpable. CENTRAL NERVOUS SYSTEM: No focal deficits, tone is normal in all 4 extremities. - Labs CBC & Chem 7: 06/14/18 05:35 06/14/18 05:35 Labs: Abnormal Lab Results - Last 24 Hours (Table) 06/16/18 06/16/18 06/16/18 Range/Units 11:45 16:16 20:59 POC Glucose (mg/dL) 150 H 150 H 158 H (75-99) mg/dL Assessment and Plan Assessment: Assessment Acute hypoxic and hypercapnic respiratory failure Toxic metabolic encephalopathy, suspect alcohol intoxication Severe lactic acidosis Anion gap metabolic acidosis Severe dehydration Aspiration pneumonia NSTEMI Septic shock Leukocytosis Anemia, normochromic, normocytic Sinus tachycardia History of DVTs and seizure disorder Hyponatremia Nicotine dependence Hyperglycemia Alcohol abuse Plan Patient is agreeable to alcoholic rehab upon discharge, when medically stable Continue to wean down oxygen as tolerated to keep oxygen saturations greater than 90% Continue to monitor and replace electrolytes per protocol Repeat chest x-ray today Blood, urine, sputum cultures reviewed Antibiotics: ID on consult Monitor urine output and renal function Insulin sliding scale and Accu-Cheks Duo nebs and Pulmicort IV steroids CIWA protocol Monitor and replace electrolytes per protocol Maintenance IV fluids at 40 mL per hour GI and DVT prophylaxis Consult PT and OT, physical medicine also on consult Thiamine, folate, multivitamin Seizure and aspiration precautions ID, Neuro and cardio on consult Advance diet as tolerated Encourage IS Patient's mother at bedside is updated to patient's condition, plan of care I performed an examination of the patient and discussed their management with the nurse practitioner. I have reviewed the nurse practitioner's note and agree with the documented findings and plan of care.
[2018-06-17 10:27] LABS: Anisocytosis Moderate; Basophils % (A) 0 %; Eosinophils # (A) 0.1 k/uL (0-0.7); Eosinophils % (A) 1 %; HGB 8.9 gm/dL (13.0-17.5); Hypochromasia Slight; Lymphocytes # (A) 1.2 k/uL (1.0-4.8); Lymphocytes % (A) 9 %; MCH 27.8 pg (25.0-35.0); MCHC 30.7 g/dL (31.0-37.0); MCV 90.8 fL (80.0-100.0); Macrocytosis Slight; Mean Platelet Volume 6.6; Monocytes # (A) 0.7 k/uL (0-1.0); Monocytes % (A) 5 %; Neutrophils # (A) 10.7 k/uL (1.3-7.7); Neutrophils % (A) 84 %; Platelet Count 450 k/uL (150-450); RDW 21.2 % (11.5-15.5); WBC 12.7 k/uL (3.8-10.6)
[2018-06-17 10:38] LABS: ALT 47 U/L (21-72); AST 25 U/L (17-59); Albumin 2.6 g/dL (3.5-5.0); Alkaline Phosphatase 71 U/L (38-126); Anion Gap 3 mmol/L; Blood Urea Nitrogen 14 mg/dL (9-20); Calcium 8.6 mg/dL (8.4-10.2); Carbon Dioxide 39 mmol/L (22-30); Chloride 93 mmol/L (98-107); Glucose 101 mg/dL (74-99); Potassium 4.1 mmol/L (3.5-5.1); Sodium 135 mmol/L (137-145); Total Bilirubin 0.2 mg/dL (0.2-1.3); Total Protein 5.7 g/dL (6.3-8.2)
[2018-06-17 11:30] LABS: Glucose,Whole Blood 154 mg/dL (75-99)
[2018-06-17] MEDS: SODIUM CHLORIDE 0.9% 1,000 ML IV SCH (13:23)
--- NOTE | 2018-06-17 14:33 | XR ---
EXAMINATION TYPE: XR chest 2V DATE OF EXAM: 06/17/2018 COMPARISON: 06/14/2018 INDICATION: Short of breath TECHNIQUE: Frontal and lateral views of the chest are obtained. FINDINGS: The heart size is normal. The pulmonary vasculature is normal. There is consolidation in the right lower lobe. A loculated pneumothorax at the right costophrenic an gle may be present. This area has been present previously but is better visualized with apparent caroline aring of the infiltrates. Mild left lower lobe infiltrate appears to be present. Fluid along the deana r fissure on the right is not excluded. IMPRESSION: 1. Improving right lower lobe infiltrate. 2. Atelectasis at the left base. Minimal infiltrate may be present. 3. Loculated pneumothorax at the right costophrenic angle is not excluded. This could be artifactual due to atelectasis. Given the changing infiltrate at the right base, this area is not changing. Moe nued follow-up is recommended.
[2018-06-17 16:59] LABS: Glucose,Whole Blood 110 mg/dL (75-99)
--- NOTE | 2018-06-17 17:11 | CT ---
EXAMINATION TYPE: CT chest wo con DATE OF EXAM: 06/17/2018 COMPARISON: None HISTORY: Shortness of breath CT DLP: 283.4 mGycm. Automated Exposure Control for Dose Reduction was Utilized. TECHNIQUE: CT scan of the thorax is performed without IV contrast. FINDINGS: There is an 8 x 4 cm air-filled cavity on the right anterior chest wall. There are multiple smaller c avities along the lateral and posterior chest wall. This is consistent with a loculated chronic pneum othorax. There is moderate patchy pneumonic consolidation in the right lower lobe. There is a diffuse reticular nodular pulmonary infiltrate in both lungs. There is consolidation and atelectasis at the left posterior lung base. There is left pleural effusion. There is small pericardial effusion. There are a few paratracheal lymph nodes that measure up to 13 mm. There is right middle lobe consolidation and atelectasis. The bony thorax shows slight anterior wedging of T7 and T4 T3 T2 vertebra. There is probably osteopenia. IMPRESSION: Extensive bilateral pulmonary infiltrates and atelectasis. Loculated right-sided pneumoth orax. Mild thoracic compression fractures. Small pericardial effusion. Mild mediastinal adenopathy.
--- NOTE | 2018-06-17 19:18 | P.PN ---
Subjective Progress Note Date: 06/17/18 This patient is a 52-year-old male who is seen today in the intensive care unit for altered mental status and obtundation. Patient was extubated off of the ventilator this morning. He is currently on BiPAP and seems to be doing fairly well. It was recommended the patient to undergo a lumbar puncture for further evaluation of sepsis. Lumbar puncture was completed today by anesthesia. His spinal fluid results came back negative for any signs of [employer] infection. Patient continues on his CIWA protocol. He is receiving Unasyn and vancomycin for antibiotic coverage. Infectious disease is also following. As noted his spinal tap was completed today results are essentially negative for any evidence of [employer] infection. Cytology results are still pending. His C. difficile study came back negative. He did undergo routine EEG today which is reviewed and reveals severe slowing with background activity of 4-5 Hz with no epileptiform discharges. We reviewed all of these test results today in detail with the patient's mother who was at bedside in the intensive care unit. Patient's mother was at bedside and she was updated on his improvement in his neurological status following extubation today. Patient initially tolerated extubation quite well but then did show signs of respiratory decompensation. His oxygen saturation did fall and he was laced on BiPAP for a short time. He is now been able to get off of BiPAP and is only having nasal cannula oxygen for further management. The patient is doing much better after extubation. He is much more awake and alert today. His mother was at bedside and she was updated on his improvement today in general. He is able to answer all questions appropriately. We did check on his recent spinal fluid cytology report which did come back negative. We updated the mother as well as the patient. He was seen by cardiology and he has had no further episodes of bradycardia. His echocardiogram revealed normal LV function with an ejection fraction of 60% with no evidence of any valvular abnormalities. Patient did have a repeat EEG today which was reviewed. EEG shows significant improvement from his initial study that was done on 06/08/2018. Background is now 7-8 Hz. We have reviewed all of these test results in detail today with the patient and his mother at bedside. The patient is very much awake today in the ICU. He is answering all questions appropriately. According to his mother he has made a tremendous improvement in his overall condition since admission to the hospital. Patient continues on high flow oxygen at this time with nasal cannula. Pulmonary medicine is trying to wean him off of this gradually. He is doing fine on selective care unit since transfer out of the intensive care unit. He continues to show improvement in his overall mental status. He is to continue on CIWA protocol as he has history of alcohol abuse in the past. He is awaiting transfer to subacute rehab early next week. He is to be weaned off of high flow oxygen and will be monitored. He is being treated for aspiration pneumonia by infectious disease and his antibiotics are being transitioned to Augmentin. Neurologically he remains very much intact. There is been significant improvement in his overall mental status since coming out of the ICU. Case was discussed today at length with the patient and his mother at bedside. All of their questions were answered. Patient is being considered for transfer to [facility] tomorrow for ongoing rehabilitation. We will continue to follow him closely with multiple other specialists. His overall prognosis at this time remains guarded. Objective - Vital Signs Vital signs: Vital Signs Temp 97.7 F 06/17/18 08:00 Pulse 86 06/17/18 11:02 Resp 18 06/17/18 10:51 BP 112/60 06/17/18 08:00 Pulse Ox 92 L 06/17/18 08:00 Intake & Output 06/16/18 06/17/18 06/17/18 18:59 06:59 18:59 Intake Total 402 150 Output Total 4401 951 1200 Balance -3999 -801 -1200 Weight 81.5 kg Intake: IV 150 Ampicillin-Sulbactam 3 gm 100 In Sodium Chloride 0.9% 100 ml @ 100 mls/hr IVPB Q6HR [facility] Rx#:[id number] Sodium Chloride 0.9% 1, 50 000 ml @ 10 mls/hr IV . Q24H [facility] Rx#:[id number] Oral 402 Output: Urine 4400 950 1200 Stool 1 1 Other: Voiding Method Urinal Urinal # Voids 4 # Bowel Movements 1 1 ABP, PAP, CO, CI - Last Documented Arterial Blood Pressure 125/59 - Exam Physical examination: PHYSICAL EXAMINATION: Patient was extubated today and he is currently on BiPAP. VITAL SIGNS: Blood pressure is [104/58]. Heart rate is [85]. Respiration is [16] . Temperature is [97.7]. HEENT: Head is atraumatic, neck is supple, there were no carotid bruits. CHEST: Lungs are clear to auscultation and percussion. CARDIAC: S1, S2 normal rate and rhythm. There is no murmur. ABDOMEN: Soft and nontender. Bowel sounds are present. EXTREMITIES: There is no pedal edema. Peripheral pulses are present. Neurological examination: Patient is resting comfortably and has his oxygen in place. He is currently on high flow oxygen with BiPAP. He is more awake and alert and is following simple commands. Cranial nerves II through XII are grossly intact. Deep tendon reflexes are hypoactive 1+. Plantar responses flexor bilaterally. Coordination and gait cannot be assessed in this patient at this time. - Labs CBC & Chem 7: 06/17/18 09:55 06/17/18 09:55 Labs: Abnormal Lab Results - Last 24 Hours (Table) 06/16/18 06/16/18 06/17/18 Range/Units 16:16 20:59 09:55 WBC 12.7 H (3.8-10.6) k/uL RBC 3.20 L (4.30-5.90) m/uL Hgb 8.9 L (13.0-17.5) gm/dL Hct 29.0 L (39.0-53.0) % MCHC 30.7 L (31.0-37.0) g/dL RDW 21.2 H (11.5-15.5) % Neutrophils # 10.7 H (1.3-7.7) k/uL Sodium (137-145) mmol/L Chloride (98-107) mmol/L Carbon Dioxide (22-30) mmol/L Creatinine (0.66-1.25) mg/dL Glucose (74-99) mg/dL POC Glucose (mg/dL) 150 H 158 H (75-99) mg/dL Total Protein (6.3-8.2) g/dL Albumin (3.5-5.0) g/dL 06/17/18 06/17/18 Range/Units 09:55 11:25 WBC (3.8-10.6) k/uL RBC (4.30-5.90) m/uL Hgb (13.0-17.5) gm/dL Hct (39.0-53.0) % MCHC (31.0-37.0) g/dL RDW (11.5-15.5) % Neutrophils # (1.3-7.7) k/uL Sodium 135 L (137-145) mmol/L Chloride 93 L (98-107) mmol/L Carbon Dioxide 39 H (22-30) mmol/L Creatinine 0.60 L (0.66-1.25) mg/dL Glucose 101 H (74-99) mg/dL POC Glucose (mg/dL) 154 H (75-99) mg/dL Total Protein 5.7 L (6.3-8.2) g/dL Albumin 2.6 L (3.5-5.0) g/dL Assessment and Plan (1) Acute metabolic encephalopathy Current Visit: Yes Status: Acute Code(s): G93.41 - METABOLIC ENCEPHALOPATHY SNOMED Code(s): 58692321 (2) Respiratory failure Current Visit: Yes Status: Acute Code(s): J96.90 - RESPIRATORY FAILURE, UNSP , UNSP W HYPOXIA OR HYPERCAPNIA SNOMED Code(s): 946750334 (3) Sepsis Current Visit: Yes Status: Acute Code(s): A41.9 - SEPSIS, UNSPECIFIED ORGANISM SNOMED Code(s): 72903684 (4) Alcohol dependence with withdrawal Current Visit: No Status: Acute Code(s): F10.239 - ALCOHOL DEPENDENCE WITH WITHDRAWAL, UNSPECIFIED SNOMED Code(s): 73631814 (5) Seizure disorder Current Visit: No Status: Acute Code(s): G40.909 - EPILEPSY, UNSP, NOT INTRACTABLE, WITHOUT STATUS EPILEPTICUS SNOMED Code(s): 456165270 Plan: This patient is a 52-year-old male who continues to show significant improvement in his mental status since transfer out of the intensive care unit. He was initially admitted with sepsis and aspiration pneumonia. He is currently on antibiotics for treatment. He continues on a CIWA protocol as he has a history of alcohol use in the past. Neurologically he is showing improvement in his mental status significantly since coming out of the intensive care unit. He is following all commands. He remains on high flow oxygen and is being followed closely by pulmonary medicine. He is awaiting transfer to subacute rehab early next week. Overall he is making good progress neurologically and we will continue to follow him closely. Case was discussed today with the patient and his mother was at bedside. All of their questions were answered. Mother is very happy with his progress and is hopeful he will continue to seek appropriate therapy and counseling once he is discharged. [facility] He continues to show significant improvement in his overall neurological status. He is to continue with physical therapy as well. Case was discussed at length today with the patient and his mother at bedside. He is considering transfer to the [facility] tomorrow for ongoing rehabilitation. He will then be considered for treatment at [place] for his alcohol related problems. Patient and his mother have been very pleased with his progress and look forward to a good prognosis for him now that he is much more stabilized and looking forward to rehabilitation. His overall prognosis at this time remains guarded. We will continue close neurological follow-up with the patient during this admission.
[2018-06-17] MEDS: MONTELUKAST 10 MG TAB PO SCH (19:58)
[2018-06-17 20:47] LABS: Glucose,Whole Blood 137 mg/dL (75-99)
--- NOTE | 2018-06-18 00:22 | PN ---
PROGRESS NOTE DATE OF SERVICE: 06/17/2018. REASON FOR FOLLOWUP: 1. Aspiration pneumonia. 2. Leukocytosis. INTERVAL HISTORY: The patient is afebrile. He is breathing comfortably. The cough has decreased in intensity. Denies any chest pain. No abdominal pain. No diarrhea. EXAMINATION: Blood pressure is 104/58 with a pulse of 85, temperature 97.7. He is 94% on 2 L nasal cannula. General description is a middle-aged male lying in bed in no distress. Respiratory system: Unlabored breathing with decreased breath sounds at the bases. No wheeze. Heart S1, S2. Regular rate and rhythm. Abdomen soft, no tenderness. LABS: Hemoglobin 8.8, white count 12.7, BUN 14, creatinine 0.70. DIAGNOSTIC IMPRESSION AND PLAN: 1. Patient with aspiration pneumonia. The patient is currently afebrile. Sputum has been negative for resistant pathogen. On Unasyn that will be transitioned to oral Augmentin for short course. 2. White count remains to be elevated. Some of it could be related to the steroids the patient is currently on that will be monitored closely. Continue supportive care. MMODL / IJN: [id number] /
--- NOTE | 2018-06-18 00:22 | PN ---
PROGRESS NOTE SUBJECTIVE: 52-year-old white male with respiratory failure and sepsis. The patient is weaned down to 2 L oxygen. Will be sent to [facility] tomorrow. Cardiovascular: S1-S2. Lungs scattered rhonchi and wheeze. Hematology negative Homans. PSYCH: Fair mood and affect. GI soft, nontender. He had a CT scan this afternoon of the chest which shows extensive bilateral pulmonary infiltrates, atelectasis, loculated right-sided pneumothorax with thoracic compression fractures. Small pericardial effusion. Mild mediastinal adenopathy. Pulmonary were asked to take care of these problems before he is able to go to the [facility]. MMODL / IJN: [id number] /
[2018-06-18] MEDS: SODIUM FERRIC GLUCONAT-SUCROSE 125 MG in SODIUM CHLORIDE 0.9% 100 ML IVPB SCH ×2 (00:38→22:32)
[2018-06-18 05:53] LABS: Glucose,Whole Blood 132 mg/dL (75-99)
[2018-06-18] MEDS: INSULIN ASPART 100 UNIT/ML 1 ML 10 ML VIAL SQ SCH ×8 (05:56→21:06)
[2018-06-18] MEDS: AMPICILLIN-SULBACTAM 3 GM in SODIUM CHLORIDE 0.9% 100 ML IVPB SCH ×4 (05:57→23:42)
[2018-06-18 06:19] LABS: Anisocytosis Moderate; Basophils % (A) 0 %; Eosinophils % (A) 0 %; HCT 26.4 % (39.0-53.0); HGB 8.3 gm/dL (13.0-17.5); Lymphocytes # (A) 0.5 k/uL (1.0-4.8); Lymphocytes % (A) 5 %; MCH 28.4 pg (25.0-35.0); MCHC 31.4 g/dL (31.0-37.0); MCV 90.3 fL (80.0-100.0); Macrocytosis Slight; Mean Platelet Volume 6.5; Monocytes # (A) 0.4 k/uL (0-1.0); Monocytes % (A) 4 %; Neutrophils # (A) 7.7 k/uL (1.3-7.7); Neutrophils % (A) 90 %; Platelet Count 445 k/uL (150-450); RBC 2.92 m/uL (4.30-5.90); WBC 8.6 k/uL (3.8-10.6)
[2018-06-18 06:33] LABS: ALT 42 U/L (21-72); AST 22 U/L (17-59); Albumin 2.6 g/dL (3.5-5.0); Alkaline Phosphatase 64 U/L (38-126); Anion Gap 5 mmol/L; Blood Urea Nitrogen 16 mg/dL (9-20); Calcium 8.6 mg/dL (8.4-10.2); Carbon Dioxide 36 mmol/L (22-30); Chloride 95 mmol/L (98-107); Glucose 113 mg/dL (74-99); Potassium 4.6 mmol/L (3.5-5.1); Sodium 136 mmol/L (137-145); Total Bilirubin 0.3 mg/dL (0.2-1.3); Total Protein 5.3 g/dL (6.3-8.2)
[2018-06-18] MEDS: HEPARIN SODIUM,PORCINE 5,000 UNIT/ML 1 ML VIAL SQ SCH ×3 (07:37→23:43)
[2018-06-18] MEDS: FUROSEMIDE 10 MG/ML 2 ML VIAL IV SCH (07:37)
[2018-06-18] MEDS: methylPREDNISolone SOD SUCCI 40 MG/ML 1 ML VIAL IV SCH ×3 (07:37→23:42)
[2018-06-18] MEDS: THIAMINE 100 MG TAB PO SCH (07:38)
[2018-06-18] MEDS: guaiFENesin 600 MG TABLET.ER PO SCH ×2 (07:38→20:10)
[2018-06-18] MEDS: PANTOPRAZOLE 40 MG/10 ML VIAL IV SCH (07:38)
[2018-06-18] MEDS: IPRATROPIUM-ALBUTEROL 3 ML NEB INHALATION SCH ×4 (08:50→20:17)
[2018-06-18] MEDS: BUDESONIDE 1 MG/2 ML NEBU INHALATION SCH ×2 (08:50→20:17)
--- NOTE | 2018-06-18 10:26 | P.PN ---
<Judith Singletary E - Last Filed: 06/18/18 10:22> Subjective Progress Note Date: 06/18/18 History of present illness: This is a 52-year-old gentleman who is well-known to [facility]. History is unable to be obtained from the patient as he is sedated on the ventilator. Per the emergency room note the patient was found unresponsive and EMS was called. The Patient's O2 saturation was 50%. He had minimal improvement on nonrebreather. The patient was to Make an hypoxic and subsequently intubated in the emergency room. The patient was found to have an elevated lactic acid of 12.6. He was profoundly acidotic with a pH of less than 7.0. The patient was hypotensive and started on Levophed. He is currently on 6 mcg/m of Levophed. He is having a large amount of green and secretions from the ET tube. It is assumed the patient aspirated. The patient is on 100% FiO2 and PEEP of 8. Bronchoscopy is performed to clear secretions. The patient has been given 2 L of IV fluids in the emergency room. He has maintenance fluids running at 100 mL per hour. He does intermittently respond to commands. The patient is a known alcoholic. He has had multiple admissions for alcohol intoxication and subsequently go through withdrawals. The patient has refused alcohol rehab in the past. The patient has required BiPAP in the past. He does drink about a pound of vodka daily. The patient's chest x-ray shows right lower lobe infiltrate. EKG shows sinus tachycardia. He also has slightly elevated troponins. Interval History: 06/06/18- patient is being seen examined and evaluated today on rounds. He is on mechanical ventilation with propofol for sedation. Current mechanical ventilation settings are assist control mode with a respiratory rate of 20, tidal volume of 550, FiO2 of 70%, and a PEEP of 8. Currently he is on Levophed at 8 mics, and propofol at 30 mics. OG tube has green bile like output, ET tube continues to have green tea-like secretions. He has been making urine. He has got a total of 4 L of fluid resuscitation. His ABGs from this morning reveal a pH of 7.33, pCO2 of 55, pO2 of 85 and HCO3 of 29. Dietary is on board and will be starting tube feeds today. His potassium is 3.5 is being replaced his magnesium is 1.3 and being replaced. His chest x-ray was reviewed and lines are stable ET tube can be advanced to 3 cm. He has a persistent right loculated pleural effusion and a trace left pleural effusion. Infectious disease has been consulted. He continues on antibiotics. Mother is at bedside updated on plan of care. No plans for extubation today. 06/07/18- patient is being seen examined and evaluated today on rounds in the intensive care unit. Patient continues on mechanical ventilation with propofol for sedation. Current mechanical ventilator settings are assist-control mode with respiratory rate of 20, tidal volume of 550, FiO2 80%, and a PEEP of 8. Patient's blood gases from this morning reveal a pH of 7.38 pCO2 of 55, pO2 of 67, and HCO3 of 33. The ABGs were done on 70% of FiO2 and were titrated up to 80% after that. He did know to have a slight increase in his temperature this morning and Ofirmev given. He also was noted to be tachycardiac and Ativan was given for the CIWA protocol. He continues to have moderate amount of secretions from ET tube. He has been tolerating his tube feedings. He has been making good urine approximately 70 per hour. Infectious disease did see the patient yesterday. His ammonia also did improve to 31 today. 06/08/18 to 06/10/[address] Velazquez's notes for coverage 06/11/18- patient is being seen examined and evaluated today on rounds. He is resting up in bed on BiPAP, BiPAP settings are IPAP of 15, EPAP of 10, FiO2 70% . He is noted to have oxygen desaturations with removal of the BiPAP. He has taken it off intermittently for quick sips of water without issues. He has no issues with swallowing water. He has been making good urine. He is alert and active. Mother at bedside. Electrolytes being replaced. Chest x-ray has been reviewed. His hemoglobin is 7.7 today. He is afebrile denies any further complaints. 06/12/18- patient is being seen examined and evaluated today on rounds in the intensive care unit. The patient was discharged in addition from BiPAP to high flow airflow, currently he has an O2 flow rate of 50 L with an FiO2 of 55%, RT continues to wean down as tolerated. He did have an elevated CO2 this morning of 47 and Diamox has been started for that. His WBC count has improved to 10.7 today. His hemoglobin is stable at 7.2overt signs of bleeding. He has been tolerating his food and fluids. His mother is at bedside and updated on plan of care. He has not required any vasopressors. His respiratory status slowly improved. Electrolytes continued to be monitored and replaced. 06/13/18- patient is being seen examined and evaluated today on rounds in the intensive care unit. The patient continues on high flow airflow at 45 L and 43 % FiO2. He feels his breathing is improved. He does continue to have significant wheeze. His CO2 level is 38. Chest x-ray was reviewed and does show basilar consolidation right greater than the left with a small effusion. Potassium and magnesium continued to be replaced. He has had a good appetite. Continues to make good urine. Afebrile no further complaints. Mother at bedside updated on plan of care 06/14/18- patient is being seen examined and evaluated today on rounds. He was downgraded from the intensive care unit yesterday. He is now on the selective care unit. He is doing relatively well. He continues on high flow airflow. Settings have been weaned down and he is on a O2 flow rate of 40 L with an FiO2 of 35%. We will continue to try to wean him off this. He has been hemodynamically stable. All labs and reports have been reviewed and are improving. Chest x-ray was reviewed from this morning and shows improving aeration of the right lung base with persistent multifocal PACs and trace left pleural effusion 06/15/18-06/16/18- please DarrianrRobin Avila note 06/17/18- patient is being seen examined and evaluated today on rounds. He is resting up in bed on 8 L of supplemental oxygen via nasal cannula. He has been working with therapy. He is being evaluated by Dr. Hanson for possible inpatient rehab. Chest x-rays continued to improve. He is afebrile no further complaints. 06/18/18- patient is being seen examined and evaluated today on rounds. He continues to have shortness of breath with exertion and activity. He has been titrated down to 2 L of supplemental oxygen via nasal cannula. He did go for a CT of the chest yesterday which did reveal extensive bilateral pulmonary infiltrates and atelectasis, loculated right-sided pneumothorax, mild thoracic compression fracture small pericardial effusion, and mild mediastinal adenopathy. When reviewing his past radiologic films, it appears that the pneumothorax developed somewhere between 06/09 and 06/11. Cardiothoracic surgery was consult and for this pneumothorax with possible decortication. Objective - Vital Signs Vital signs: Vital Signs Temp 97.9 F 06/18/18 07:46 Pulse 106 H 06/18/18 09:11 Resp 18 06/18/18 08:00 BP 91/56 06/18/18 07:46 Pulse Ox 90 L 06/18/18 08:54 Intake & Output 06/17/18 06/18/18 06/18/18 18:59 06:59 18:59 Intake Total 240 100 120 Output Total 1200 2775 700 Balance -200 -2865 -314 Weight 77.7 kg Intake: IV 100 Ampicillin-Sulbactam 3 gm 100 In Sodium Chloride 0.9% 100 ml @ 100 mls/hr IVPB Q6HR HERIBERTO Rx#:[id number] Oral 240 120 Output: Urine 1200 2775 700 Other: Voiding Method Urinal # Voids 1 # Bowel Movements 1 1 ABP, PAP, CO, CI - Last Documented Arterial Blood Pressure 125/59 - Exam GENERAL EXAM: Alert, active, comfortable in no apparent distress on high flow airvo. HEAD: Normocephalic. EYES: Normal reaction of pupils, equal size. NOSE: Clear with pink turbinates. THROAT: No erythema or exudates. NECK: No masses, no JVD. CHEST: No chest wall deformity. LUNGS: Lungs noted to be coarse throughout with some scattered rhonchi CVS: S1 and S2 normal with no audible mumurs, regular rhythm. ABDOMEN: No hepatosplenomegaly, normal bowel sounds, no guarding or rigidity. EXTREMITIES: no edema noted, pedal pulses palpable. CENTRAL NERVOUS SYSTEM: No focal deficits, tone is normal in all 4 extremities. - Labs CBC & Chem 7: 06/18/18 05:59 06/18/18 05:59 Labs: Abnormal Lab Results - Last 24 Hours (Table) 06/17/18 06/17/18 06/17/18 Range/Units 09:55 09:55 11:25 WBC 12.7 H (3.8-10.6) k/uL RBC 3.20 L (4.30-5.90) m/uL Hgb 8.9 L (13.0-17.5) gm/dL Hct 29.0 L (39.0-53.0) % MCHC 30.7 L (31.0-37.0) g/dL RDW 21.2 H (11.5-15.5) % Neutrophils # 10.7 H (1.3-7.7) k/uL Lymphocytes # (1.0-4.8) k/uL Sodium 135 L (137-145) mmol/L Chloride 93 L (98-107) mmol/L Carbon Dioxide 39 H (22-30) mmol/L Creatinine 0.60 L (0.66-1.25) mg/dL Glucose 101 H (74-99) mg/dL POC Glucose (mg/dL) 154 H (75-99) mg/dL Total Protein 5.7 L (6.3-8.2) g/dL Albumin 2.6 L (3.5-5.0) g/dL 06/17/18 06/17/18 06/18/18 Range/Units 16:37 20:45 05:52 WBC (3.8-10.6) k/uL RBC (4.30-5.90) m/uL Hgb (13.0-17.5) gm/dL Hct (39.0-53.0) % MCHC (31.0-37.0) g/dL RDW (11.5-15.5) % Neutrophils # (1.3-7.7) k/uL Lymphocytes # (1.0-4.8) k/uL Sodium (137-145) mmol/L Chloride (98-107) mmol/L Carbon Dioxide (22-30) mmol/L Creatinine (0.66-1.25) mg/dL Glucose (74-99) mg/dL POC Glucose (mg/dL) 110 H 137 H 132 H (75-99) mg/dL Total Protein (6.3-8.2) g/dL Albumin (3.5-5.0) g/dL 06/18/18 06/18/18 Range/Units 05:59 05:59 WBC (3.8-10.6) k/uL RBC 2.92 L (4.30-5.90) m/uL Hgb 8.3 L (13.0-17.5) gm/dL Hct 26.4 L (39.0-53.0) % MCHC (31.0-37.0) g/dL RDW 21.0 H (11.5-15.5) % Neutrophils # (1.3-7.7) k/uL Lymphocytes # 0.5 L (1.0-4.8) k/uL Sodium 136 L (137-145) mmol/L Chloride 95 L (98-107) mmol/L Carbon Dioxide 36 H (22-30) mmol/L Creatinine 0.57 L (0.66-1.25) mg/dL Glucose 113 H (74-99) mg/dL POC Glucose (mg/dL) (75-99) mg/dL Total Protein 5.3 L (6.3-8.2) g/dL Albumin 2.6 L (3.5-5.0) g/dL Assessment and Plan Assessment: Assessment Acute hypoxic and hypercapnic respiratory failure Toxic metabolic encephalopathy, suspect alcohol intoxication Severe lactic acidosis Anion gap metabolic acidosis Severe dehydration Aspiration pneumonia NSTEMI Septic shock Leukocytosis Anemia, normochromic, normocytic Sinus tachycardia History of DVTs and seizure disorder Hyponatremia Nicotine dependence Hyperglycemia Alcohol abuse Right-sided pneumothorax Plan Cardiothoracic surgery has been consulted for pneumothorax, patient would benefit from possible decortication Patient is agreeable to alcoholic rehab upon discharge, when medically stable Continue to wean down oxygen as tolerated to keep oxygen saturations greater than 90% Continue to monitor and replace electrolytes per protocol Repeat chest x-ray today Blood, urine, sputum cultures reviewed Antibiotics: ID on consult Monitor urine output and renal function Insulin sliding scale and Accu-Cheks Duo nebs and Pulmicort IV steroids CIWA protocol Monitor and replace electrolytes per protocol Maintenance IV fluids at 40 mL per hour GI and DVT prophylaxis Consult PT and OT, physical medicine also on consult Thiamine, folate, multivitamin Seizure and aspiration precautions ID, Neuro and cardio on consult Advance diet as tolerated Encourage IS Patient's mother at bedside is updated to patient's condition, plan of care I performed an examination of the patient and discussed their management with the nurse practitioner. I have reviewed the nurse practitioner's note and agree with the documented findings and plan of care. <Esha Ambrose - Last Filed: 06/18/18 10:35> Objective - Vital Signs Vital signs: Vital Signs Temp 97.9 F 06/18/18 07:46 Pulse 106 H 06/18/18 09:11 Resp 18 06/18/18 08:00 BP 91/56 06/18/18 07:46 Pulse Ox 90 L 06/18/18 08:54 Intake & Output 06/17/18 06/18/18 06/18/18 18:59 06:59 18:59 Intake Total 240 100 120 Output Total 1200 2775 700 Balance -510 -3134 -603 Weight 77.7 kg Intake: IV 100 Ampicillin-Sulbactam 3 gm 100 In Sodium Chloride 0.9% 100 ml @ 100 mls/hr IVPB Q6HR HERIBERTO Rx#:[id number] Oral 240 120 Output: Urine 1200 2775 700 Other: Voiding Method Urinal # Voids 1 # Bowel Movements 1 1 ABP, PAP, CO, CI - Last Documented Arterial Blood Pressure 125/59 - Labs CBC & Chem 7: 06/18/18 05:59 06/18/18 05:59 Labs: Abnormal Lab Results - Last 24 Hours (Table) 06/17/18 06/17/18 06/17/18 Range/Units 09:55 11:25 16:37 RBC (4.30-5.90) m/uL Hgb (13.0-17.5) gm/dL Hct (39.0-53.0) % RDW (11.5-15.5) % Lymphocytes # (1.0-4.8) k/uL Sodium 135 L (137-145) mmol/L Chloride 93 L (98-107) mmol/L Carbon Dioxide 39 H (22-30) mmol/L Creatinine 0.60 L (0.66-1.25) mg/dL Glucose 101 H (74-99) mg/dL POC Glucose (mg/dL) 154 H 110 H (75-99) mg/dL Total Protein 5.7 L (6.3-8.2) g/dL Albumin 2.6 L (3.5-5.0) g/dL 06/17/18 06/18/18 06/18/18 Range/Units 20:45 05:52 05:59 RBC 2.92 L (4.30-5.90) m/uL Hgb 8.3 L (13.0-17.5) gm/dL Hct 26.4 L (39.0-53.0) % RDW 21.0 H (11.5-15.5) % Lymphocytes # 0.5 L (1.0-4.8) k/uL Sodium (137-145) mmol/L Chloride (98-107) mmol/L Carbon Dioxide (22-30) mmol/L Creatinine (0.66-1.25) mg/dL Glucose (74-99) mg/dL POC Glucose (mg/dL) 137 H 132 H (75-99) mg/dL Total Protein (6.3-8.2) g/dL Albumin (3.5-5.0) g/dL 06/18/18 Range/Units 05:59 RBC (4.30-5.90) m/uL Hgb (13.0-17.5) gm/dL Hct (39.0-53.0) % RDW (11.5-15.5) % Lymphocytes # (1.0-4.8) k/uL Sodium 136 L (137-145) mmol/L Chloride 95 L (98-107) mmol/L Carbon Dioxide 36 H (22-30) mmol/L Creatinine 0.57 L (0.66-1.25) mg/dL Glucose 113 H (74-99) mg/dL POC Glucose (mg/dL) (75-99) mg/dL Total Protein 5.3 L (6.3-8.2) g/dL Albumin 2.6 L (3.5-5.0) g/dL Assessment and Plan Assessment: Patient seen and examined. CT chest reviewed. Will need surgical evaluation for possible decortication/pleurodesis. Continue ABX. Patient is on 2L NC. Patient did ambulate in the hallway today. He states he is feeling better overall. ~Esha Ambrose Do
--- NOTE | 2018-06-18 11:45 | P.GSCN ---
History of Present Illness Consult date: 06/18/18 Reason for Consult: New pneumothorax, recommendations for surgical decortication Requesting physician: Esha Ambrose History of present illness: This is a 52-year-old patient follows on an outpatient basis with Dr. Duque. His has a previous medical history of daily alcohol use with history of delirium tremens, seizure disorder, daily tobacco dependence, COPD, GERD, and frequent falls. He presented to [facility] emergency room 06/05/2018 after being found unresponsive, hypoxic, and hypotensive. He was intubated in the emergency room and admitted to the intensive care unit for workup and treatment. He was extubated June 10 and transferred to [address] [place] [address] on June 14. He has been followed and treated by pulmonology with bronchodilators, steroids, and antibiotics. He has continued to progress and get better, however yesterday's x-ray demonstrated right loculated pneumothorax, along with continued infiltrates and atelectasis. CT of the chest was performed which also demonstrated right loculated chronic pneumothorax, as well as extensive bilateral pulmonary infiltrates and atelectasis. Due to the above findings cardiothoracic surgery was consulted for possible surgical decortication. Review of Systems Review of systems was completed was negative except as noted in the HPI. Past Medical History Past Medical History: COPD, GERD/Reflux, Seizure Disorder, Syncope Additional Past Medical History / Comment(s): Severe ETOH abuse, alcohol withdrawal seizures/DTs, encephalopathy d/t alcohol, falls, thrombocytopenia, mastoiditis with surgery. History of Any Multi-Drug Resistant Organisms: None Reported Past Surgical History: Ear Surgery, Tonsillectomy Additional Past Surgical History / Comment(s): Bilateral mastoidectomies, sinus surgery and vocal cord scraping. Past Anesthesia/Blood Transfusion Reactions: No Reported Reaction Smoking Status: Current every day smoker Past Alcohol Use History: Daily, Heavy Additional Past Alcohol Use History / Comment(s): Admits to 1/5 per day Past Drug Use History: None Reported - Past Family History Father Family Medical History: Cancer Additional Family Medical History / Comment(s): Father was a stomach cancer survivor. He of spinal stenosis at the age of 88yrs. Mother Family Medical History: Hyperlipidemia Additional Family Medical History / Comment(s): Mother is living and is 85 yrs old. Brother(s) Additional Family Medical History / Comment(s): Bipolar, schizoprenia Medications and Allergies Home Medications Medication Instructions Recorded Confirmed Type Albuterol Inhaler [Ventolin Hfa 1 - 2 puff INHALATION RT-Q4H PRN 06/05/18 History Inhaler] Ferrous Sulfate [Feosol] 325 mg PO DAILY 06/05/18 06/05/18 History Ibuprofen [Motrin] 800 mg PO TID PRN 06/05/18 06/05/18 History Omeprazole 20 mg PO DAILY 06/05/18 06/05/18 History Allergies Allergy/AdvReac Type Severity Reaction Status Date / Time No Known Allergies Allergy Verified 06/05/18 14:07 Surgical - Exam Vital Signs Pulse Resp Pulse Ox 35 L 6 L 97 06/05/18 12:08 06/05/18 12:08 06/05/18 12:08 - General well developed, well nourished, no distress, no pain - Eyes PERRL, normal ocular movement - ENT no hearing loss - Neck no masses, no bruits, trachea midline - Respiratory Lungs sounds diminished bilaterally, right greater than left, expiratory wheezes present. Respirations even, nonlabored. Currently on 2 L nasal cannula with oxygen saturation 90-92%. Able to achieve 1750 mL on his incentive spirometry. Strong cough. - Cardiovascular S1, S2 present. Regular rate and rhythm, sinus rhythm on telemetry. Palpable peripheral pulses bilaterally. No edema present. No calf pain or tenderness noted. - Abdomen Abdomen: soft, non tender, bowel sounds - Genitourinary Deferred - Rectum Deferred - Integumentary no rash, no growths, no abnormal pigmentation - Neurologic normal coordination, normal sensation - Psychiatric oriented to time, oriented to person, oriented to place, speech is normal, memory intact Results - Labs 06/18/18 05:59 06/18/18 05:59 Abnormal Lab Results - Last 24 Hours (Table) 06/17/18 06/17/18 06/17/18 Range/Units 11:25 16:37 20:45 RBC (4.30-5.90) m/uL Hgb (13.0-17.5) gm/dL Hct (39.0-53.0) % RDW (11.5-15.5) % Lymphocytes # (1.0-4.8) k/uL Sodium (137-145) mmol/L Chloride (98-107) mmol/L Carbon Dioxide (22-30) mmol/L Creatinine (0.66-1.25) mg/dL Glucose (74-99) mg/dL POC Glucose (mg/dL) 154 H 110 H 137 H (75-99) mg/dL Total Protein (6.3-8.2) g/dL Albumin (3.5-5.0) g/dL 06/18/18 06/18/18 06/18/18 Range/Units 05:52 05:59 05:59 RBC 2.92 L (4.30-5.90) m/uL Hgb 8.3 L (13.0-17.5) gm/dL Hct 26.4 L (39.0-53.0) % RDW 21.0 H (11.5-15.5) % Lymphocytes # 0.5 L (1.0-4.8) k/uL Sodium 136 L (137-145) mmol/L Chloride 95 L (98-107) mmol/L Carbon Dioxide 36 H (22-30) mmol/L Creatinine 0.57 L (0.66-1.25) mg/dL Glucose 113 H (74-99) mg/dL POC Glucose (mg/dL) 132 H (75-99) mg/dL Total Protein 5.3 L (6.3-8.2) g/dL Albumin 2.6 L (3.5-5.0) g/dL Diabetes panel 06/18/18 Range/Units 05:59 Sodium 136 L (137-145) mmol/L Potassium 4.6 (3.5-5.1) mmol/L Chloride 95 L (98-107) mmol/L Carbon Dioxide 36 H (22-30) mmol/L BUN 16 (9-20) mg/dL Creatinine 0.57 L (0.66-1.25) mg/dL Glucose 113 H (74-99) mg/dL Calcium 8.6 (8.4-10.2) mg/dL AST 22 (17-59) U/L ALT 42 (21-72) U/L Alkaline Phosphatase 64 (38-126) U/L Total Protein 5.3 L (6.3-8.2) g/dL Albumin 2.6 L (3.5-5.0) g/dL Calcium panel 06/18/18 Range/Units 05:59 Calcium 8.6 (8.4-10.2) mg/dL Albumin 2.6 L (3.5-5.0) g/dL Pituitary panel 06/18/18 Range/Units 05:59 Sodium 136 L (137-145) mmol/L Potassium 4.6 (3.5-5.1) mmol/L Chloride 95 L (98-107) mmol/L Carbon Dioxide 36 H (22-30) mmol/L BUN 16 (9-20) mg/dL Creatinine 0.57 L (0.66-1.25) mg/dL Glucose 113 H (74-99) mg/dL Calcium 8.6 (8.4-10.2) mg/dL Adrenal panel 06/18/18 Range/Units 05:59 Sodium 136 L (137-145) mmol/L Potassium 4.6 (3.5-5.1) mmol/L Chloride 95 L (98-107) mmol/L Carbon Dioxide 36 H (22-30) mmol/L BUN 16 (9-20) mg/dL Creatinine 0.57 L (0.66-1.25) mg/dL Glucose 113 H (74-99) mg/dL Calcium 8.6 (8.4-10.2) mg/dL Total Bilirubin 0.3 (0.2-1.3) mg/dL AST 22 (17-59) U/L ALT 42 (21-72) U/L Alkaline Phosphatase 64 (38-126) U/L Total Protein 5.3 L (6.3-8.2) g/dL Albumin 2.6 L (3.5-5.0) g/dL - Imaging Chest x-ray: report reviewed, image reviewed CT scan - chest: report reviewed, image reviewed Assessment and Plan (1) COPD (chronic obstructive pulmonary disease) Current Visit: Yes Status: Chronic Code(s): J44.9 - CHRONIC OBSTRUCTIVE PULMONARY DISEASE, UNSPECIFIED SNOMED Code(s): 80215763 (2) Tobacco dependence Current Visit: Yes Status: Chronic Code(s): F17.200 - NICOTINE DEPENDENCE, UNSPECIFIED, UNCOMPLICATED SNOMED Code(s): 89682601 (3) Frequent falls Current Visit: Yes Status: Chronic Code(s): R29.6 - REPEATED FALLS SNOMED Code(s): 387472642 (4) GERD (gastroesophageal reflux disease) Current Visit: Yes Status: Chronic Code(s): K21.9 - GASTRO-ESOPHAGEAL REFLUX DISEASE WITHOUT ESOPHAGITIS SNOMED Code(s): 365086581 (5) Alcohol dependence with withdrawal Current Visit: Yes Status: Chronic Code(s): F10.239 - ALCOHOL DEPENDENCE WITH WITHDRAWAL, UNSPECIFIED SNOMED Code(s): 91431077 (6) Seizure disorder Current Visit: Yes Status: Chronic Code(s): G40.909 - EPILEPSY, UNSP, NOT INTRACTABLE, WITHOUT STATUS EPILEPTICUS SNOMED Code(s): 305109008 Plan: Patient was seen and examined at the bedside. Chart/diagnostics were reviewed. Patient is currently in no acute distress. Will discuss the case in detail with Dr. Barreto. Continue bronchodilators, steroids, antibiotics per pulmonology. Encourage incentive spirometry use. Encourage smoking cessation, alcohol cessation. Medical management per primary care service. More recommendations to follow. Thank you Dr. Ambrose for this consult. We look forward to working with you in the care of patient. Time with Patient: Greater than 30
[2018-06-18 11:48] LABS: Glucose,Whole Blood 180 mg/dL (75-99)
[2018-06-18] MEDS: ACETAMINOPHEN TAB 325 MG TAB PO PRN (12:04)
[2018-06-18 16:20] LABS: Glucose,Whole Blood 291 mg/dL (75-99)
[2018-06-18] MEDS: SODIUM CHLORIDE 0.9% 1,000 ML IV SCH (16:56)
--- NOTE | 2018-06-18 17:44 | PN ---
PROGRESS NOTE DATE OF SERVICE: 06/18/2018. REASON FOR FOLLOWUP: Aspiration pneumonia with possible empyema. INTERVAL HISTORY: The patient is currently afebrile, has been breathing comfortably. Denies significant chest pain. Occasional cough. No abdominal pain. No nausea, vomiting, or any diarrhea. EXAMINATION: Blood pressure is 108/71 with a pulse of 83, temp 97.6. He is 95% on 2 L nasal cannula. General description is a middle-aged male lying in bed in no distress. Respiratory system: Unlabored breathing with decreased breath sounds in the bases. No wheeze. Heart S1, S2. Regular rate and rhythm. Abdomen soft. No tenderness. Extremities are no edema of the feet. LABS: Hemoglobin 8.8, white count 8.6, BUN of 15, creatinine 0.57. The patient did have a CT of the chest completed with bilateral pulmonary infiltrates and loculated right-sided pneumothorax. DIAGNOSTIC IMPRESSION AND PLAN: Patient with aspiration pneumonia with loculated right-sided pneumothorax for which the patient needs a thoracotomy and for the same reason, the patient being transferred to [facility]. Keep the patient on Unasyn at this point. The patient is evaluated by ID service at that facility. Family present at bedside. Their questions were answered. MMODL / IJN: [id number] /
--- NOTE | 2018-06-18 18:20 | P.PN ---
Subjective Progress Note Date: 06/18/18 This patient is a 52-year-old male who is seen today in the intensive care unit for altered mental status and obtundation. Patient was extubated off of the ventilator this morning. He is currently on BiPAP and seems to be doing fairly well. It was recommended the patient to undergo a lumbar puncture for further evaluation of sepsis. Lumbar puncture was completed today by anesthesia. His spinal fluid results came back negative for any signs of FRUIT WORKER infection. Patient continues on his CIWA protocol. He is receiving Unasyn and vancomycin for antibiotic coverage. Infectious disease is also following. As noted his spinal tap was completed today results are essentially negative for any evidence of FRUIT WORKER infection. Cytology results are still pending. His C. difficile study came back negative. He did undergo routine EEG today which is reviewed and reveals severe slowing with background activity of 4-5 Hz with no epileptiform discharges. We reviewed all of these test results today in detail with the patient's mother who was at bedside in the intensive care unit. Patient's mother was at bedside and she was updated on his improvement in his neurological status following extubation today. Patient initially tolerated extubation quite well but then did show signs of respiratory decompensation. His oxygen saturation did fall and he was laced on BiPAP for a short time. He is now been able to get off of BiPAP and is only having nasal cannula oxygen for further management. The patient is doing much better after extubation. He is much more awake and alert today. His mother was at bedside and she was updated on his improvement today in general. He is able to answer all questions appropriately. We did check on his recent spinal fluid cytology report which did come back negative. We updated the mother as well as the patient. He was seen by cardiology and he has had no further episodes of bradycardia. His echocardiogram revealed normal LV function with an ejection fraction of 60% with no evidence of any valvular abnormalities. Patient did have a repeat EEG today which was reviewed. EEG shows significant improvement from his initial study that was done on 06/08/2018. Background is now 7-8 Hz. We have reviewed all of these test results in detail today with the patient and his mother at bedside. The patient is very much awake today in the ICU. He is answering all questions appropriately. According to his mother he has made a tremendous improvement in his overall condition since admission to the hospital. Patient continues on high flow oxygen at this time with nasal cannula. Pulmonary medicine is trying to wean him off of this gradually. He is doing fine on selective care unit since transfer out of the intensive care unit. He continues to show improvement in his overall mental status. He is to continue on CIWA protocol as he has history of alcohol abuse in the past. He is awaiting transfer to subacute rehab early next week. He is to be weaned off of high flow oxygen and will be monitored. He is being treated for aspiration pneumonia by infectious disease and his antibiotics are being transitioned to Augmentin. Neurologically he remains very much intact. There is been significant improvement in his overall mental status since coming out of the ICU. The patient was sent for a computed tomography scan of the chest yesterday as he was having difficulty with his breathing. CAT scan of the chest revealed bilateral pulmonary infiltrates and a loculated right-sided pneumothorax. Cardiothoracic surgery was consulted today as there was concern the patient may need surgical intervention for this pneumothorax. Pulmonary medicine is recommending decortication procedure for this patient. Cardiothoracic surgery has reviewed his CT chest films as well as x-rays and he apparently remains clinically stable and not requiring surgical intervention as per Dr. Barreto. These findings were discussed today with the patient and his mother who is at bedside. They're still awaiting final decision to be made regarding possible transfer to [facility] for further evaluation and treatment. Neurologically he remains very much intact and is awaiting rehab placement. We will continue to follow his progress closely during this admission. Objective - Vital Signs Vital signs: Vital Signs Temp 97.6 F 06/18/18 12:00 Pulse 104 H 06/18/18 16:45 Resp 16 06/18/18 16:00 BP 108/71 06/18/18 12:00 Pulse Ox 95 06/18/18 15:40 Intake & Output 06/17/18 06/18/18 06/18/18 18:59 06:59 18:59 Intake Total 240 100 120 Output Total 1200 2775 700 Balance -855 -1621 -647 Weight 77.7 kg Intake: IV 100 Ampicillin-Sulbactam 3 gm 100 In Sodium Chloride 0.9% 100 ml @ 100 mls/hr IVPB Q6HR [facility] Rx#:[id number] Oral 240 120 Output: Urine 1200 2775 700 Other: Voiding Method Urinal # Voids 1 # Bowel Movements 1 1 ABP, PAP, CO, CI - Last Documented Arterial Blood Pressure 125/59 - Exam Physical examination: PHYSICAL EXAMINATION: Patient was resting comfortably and is on no oxygen therapy at this time. He is alert and resting comfortably with no respiratory symptoms to report. VITAL SIGNS: Blood pressure is[108/71]. Heart rate is [83]. Respiration is [18] . Temperature is [97.7]. HEENT: Head is atraumatic, neck is supple, there were no carotid bruits. CHEST: Lungs are clear to auscultation and percussion. CARDIAC: S1, S2 normal rate and rhythm. There is no murmur. ABDOMEN: Soft and nontender. Bowel sounds are present. EXTREMITIES: There is no pedal edema. Peripheral pulses are present. Neurological examination: Patient is resting comfortably and has his oxygen in place. He is more awake and alert and is following simple commands. Cranial nerves II through XII are grossly intact. Deep tendon reflexes are hypoactive 1+. Plantar responses flexor bilaterally. Coordination and gait cannot be assessed in this patient at this time. - Labs CBC & Chem 7: 06/18/18 05:59 06/18/18 05:59 Labs: Abnormal Lab Results - Last 24 Hours (Table) 06/17/18 06/17/18 06/18/18 Range/Units 16:37 20:45 05:52 RBC (4.30-5.90) m/uL Hgb (13.0-17.5) gm/dL Hct (39.0-53.0) % RDW (11.5-15.5) % Lymphocytes # (1.0-4.8) k/uL Sodium (137-145) mmol/L Chloride (98-107) mmol/L Carbon Dioxide (22-30) mmol/L Creatinine (0.66-1.25) mg/dL Glucose (74-99) mg/dL POC Glucose (mg/dL) 110 H 137 H 132 H (75-99) mg/dL Total Protein (6.3-8.2) g/dL Albumin (3.5-5.0) g/dL 06/18/18 06/18/18 06/18/18 Range/Units 05:59 05:59 11:32 RBC 2.92 L (4.30-5.90) m/uL Hgb 8.3 L (13.0-17.5) gm/dL Hct 26.4 L (39.0-53.0) % RDW 21.0 H (11.5-15.5) % Lymphocytes # 0.5 L (1.0-4.8) k/uL Sodium 136 L (137-145) mmol/L Chloride 95 L (98-107) mmol/L Carbon Dioxide 36 H (22-30) mmol/L Creatinine 0.57 L (0.66-1.25) mg/dL Glucose 113 H (74-99) mg/dL POC Glucose (mg/dL) 180 H (75-99) mg/dL Total Protein 5.3 L (6.3-8.2) g/dL Albumin 2.6 L (3.5-5.0) g/dL 06/18/18 Range/Units 16:18 RBC (4.30-5.90) m/uL Hgb (13.0-17.5) gm/dL Hct (39.0-53.0) % RDW (11.5-15.5) % Lymphocytes # (1.0-4.8) k/uL Sodium (137-145) mmol/L Chloride (98-107) mmol/L Carbon Dioxide (22-30) mmol/L Creatinine (0.66-1.25) mg/dL Glucose (74-99) mg/dL POC Glucose (mg/dL) 291 H (75-99) mg/dL Total Protein (6.3-8.2) g/dL Albumin (3.5-5.0) g/dL Assessment and Plan (1) Acute metabolic encephalopathy Current Visit: Yes Status: Acute Code(s): G93.41 - METABOLIC ENCEPHALOPATHY SNOMED Code(s): 99373367 (2) Respiratory failure Current Visit: Yes Status: Acute Code(s): J96.90 - RESPIRATORY FAILURE, UNSP , UNSP W HYPOXIA OR HYPERCAPNIA SNOMED Code(s): 819391315 (3) Sepsis Current Visit: Yes Status: Acute Code(s): A41.9 - SEPSIS, UNSPECIFIED ORGANISM SNOMED Code(s): 21200119 (4) Alcohol dependence with withdrawal Current Visit: Yes Status: Chronic Code(s): F10.239 - ALCOHOL DEPENDENCE WITH WITHDRAWAL, UNSPECIFIED SNOMED Code(s): 65426380 (5) Seizure disorder Current Visit: Yes Status: Chronic Code(s): G40.909 - EPILEPSY, UNSP, NOT INTRACTABLE, WITHOUT STATUS EPILEPTICUS SNOMED Code(s): 560582328 Plan: This patient is a 52-year-old male who continues to show significant improvement in his overall until status since transfer out of the intensive care unit. He was sent for a computed tomography scan of the chest yesterday which reveals evidence of a loculated right-sided pneumothorax. Cardiothoracic surgery and pulmonary medicine are following up with further recommendations. Neurologically the patient remains very much intact. He is awaiting transferred to rehab for further management. We will continue close neurological follow-up for the patient during this admission. His overall prognosis at this time remains guarded. Case was discussed at length with the patient as well as his mother was at bedside. He is to continue on a C[facility]A protocol for history of alcohol use in the past. His neurological examination remains stable at this time and unchanged from yesterday. His overall prognosis at this time remains guarded.
[2018-06-18] MEDS: MONTELUKAST 10 MG TAB PO SCH (20:10)
[2018-06-18 20:48] LABS: Glucose,Whole Blood 152 mg/dL (75-99)
--- NOTE | 2018-06-18 22:11 | PN ---
PROGRESS NOTE SUBJECTIVE: A 52-year-old white male with respiratory failure. CT scan of the chest shows a pneumothorax for which it will not be drained per cardiac surgeons here. He will be transferred down to [facility]. I discussed the case with his mother and the patient. CARDIOVASCULAR: S1, S2. LUNGS: Scattered rhonchi and wheeze. HEMATOLOGY: Negative Homans'. Weaned on 2L oxygen. ASSESSMENT: 1. Aspiration pneumonia. 2. Pneumothorax. 3. Status post ventilatory respiratory failure. 4. Alcoholism. 5. Generalized debility. Continue current antibiotics. Transfer for pneumothorax treatment to [facility]. MMODL / IJN: [id number] /
[2018-06-19] MEDS: AMPICILLIN-SULBACTAM 3 GM in SODIUM CHLORIDE 0.9% 100 ML IVPB SCH ×3 (05:23→18:26)
[2018-06-19 05:54] LABS: Glucose,Whole Blood 153 mg/dL (75-99)
[2018-06-19] MEDS: INSULIN ASPART 100 UNIT/ML 1 ML 10 ML VIAL SQ SCH ×8 (06:12→20:53)
[2018-06-19 06:32] LABS: Anisocytosis Moderate; Basophils % (A) 0 %; Eosinophils % (A) 0 %; HCT 26.1 % (39.0-53.0); HGB 8.2 gm/dL (13.0-17.5); Hypochromasia Slight; Lymphocytes # (A) 0.3 k/uL (1.0-4.8); Lymphocytes % (A) 5 %; MCH 28.5 pg (25.0-35.0); MCHC 31.3 g/dL (31.0-37.0); MCV 91.2 fL (80.0-100.0); Macrocytosis Slight; Mean Platelet Volume 6.6; Monocytes # (A) 0.4 k/uL (0-1.0); Monocytes % (A) 6 %; Neutrophils # (A) 5.8 k/uL (1.3-7.7); Neutrophils % (A) 89 %; Platelet Count 502 k/uL (150-450); RBC 2.87 m/uL (4.30-5.90); RDW 21.4 % (11.5-15.5); WBC 6.5 k/uL (3.8-10.6)
[2018-06-19 06:52] LABS: ALT 42 U/L (21-72); AST 18 U/L (17-59); Albumin 2.7 g/dL (3.5-5.0); Alkaline Phosphatase 65 U/L (38-126); Anion Gap 6 mmol/L; Blood Urea Nitrogen 13 mg/dL (9-20); Calcium 8.6 mg/dL (8.4-10.2); Carbon Dioxide 32 mmol/L (22-30); Chloride 97 mmol/L (98-107); Glucose 119 mg/dL (74-99); Potassium 4.5 mmol/L (3.5-5.1); Sodium 135 mmol/L (137-145); Total Bilirubin 0.2 mg/dL (0.2-1.3); Total Protein 5.6 g/dL (6.3-8.2)
--- NOTE | 2018-06-19 08:16 | XR ---
EXAMINATION TYPE: XR chest 2V DATE OF EXAM: 06/19/2018 COMPARISON: Radiograph and CT 06/17/2018 HISTORY: 52 year-old male shortness of breath, follow-up right pneumothorax TECHNIQUE: Frontal and lateral views FINDINGS: Heart normal size. Aortopulmonary vasculature within normal limits. Patchy infiltrates persist, right greater than left especially at the right middle lobe and right lower lung. Continued loculated pneu mothorax peripheral right base. IMPRESSION: 1. Overall stable exam with scattered patchy infiltrates particularly at the right base. 2. Continued loculated peripheral right basilar pneumothorax.
[2018-06-19] MEDS: BUDESONIDE 1 MG/2 ML NEBU INHALATION SCH (08:24)
[2018-06-19] MEDS: IPRATROPIUM-ALBUTEROL 3 ML NEB INHALATION SCH ×4 (08:24→19:02)
[2018-06-19 08:30] VITALS: RESP 18
[2018-06-19 09:59] VITALS: BMI 22.8
[2018-06-19] MEDS: PANTOPRAZOLE 40 MG/10 ML VIAL IV SCH (10:06)
[2018-06-19] MEDS: methylPREDNISolone SOD SUCCI 40 MG/ML 1 ML VIAL IV SCH ×2 (10:06→16:45)
[2018-06-19] MEDS: HEPARIN SODIUM,PORCINE 5,000 UNIT/ML 1 ML VIAL SQ SCH ×2 (10:07→16:45)
[2018-06-19] MEDS: FUROSEMIDE 10 MG/ML 2 ML VIAL IV SCH (10:07)
[2018-06-19] MEDS: guaiFENesin 600 MG TABLET.ER PO SCH ×2 (10:08→20:51)
--- NOTE | 2018-06-19 10:36 | P.PN ---
Subjective Progress Note Date: 06/19/18 Principal diagnosis: Aspiratoin pneumonia History of present illness: This is a 52-year-old gentleman who is well-known to [facility]. History is unable to be obtained from the patient as he is sedated on the ventilator. Per the emergency room note the patient was found unresponsive and EMS was called. The Patient's O2 saturation was 50%. He had minimal improvement on nonrebreather. The patient was to Make an hypoxic and subsequently intubated in the emergency room. The patient was found to have an elevated lactic acid of 12.6. He was profoundly acidotic with a pH of less than 7.0. The patient was hypotensive and started on Levophed. He is currently on 6 mcg/m of Levophed. He is having a large amount of green and secretions from the ET tube. It is assumed the patient aspirated. The patient is on 100% FiO2 and PEEP of 8. Bronchoscopy is performed to clear secretions. The patient has been given 2 L of IV fluids in the emergency room. He has maintenance fluids running at 100 mL per hour. He does intermittently respond to commands. The patient is a known alcoholic. He has had multiple admissions for alcohol intoxication and subsequently go through withdrawals. The patient has refused alcohol rehab in the past. The patient has required BiPAP in the past. He does drink about a pound of vodka daily. The patient's chest x-ray shows right lower lobe infiltrate. EKG shows sinus tachycardia. He also has slightly elevated troponins. Interval History: 06/06/18- patient is being seen examined and evaluated today on rounds. He is on mechanical ventilation with propofol for sedation. Current mechanical ventilation settings are assist control mode with a respiratory rate of 20, tidal volume of 550, FiO2 of 70%, and a PEEP of 8. Currently he is on Levophed at 8 mics, and propofol at 30 mics. OG tube has green bile like output, ET tube continues to have green tea-like secretions. He has been making urine. He has got a total of 4 L of fluid resuscitation. His ABGs from this morning reveal a pH of 7.33, pCO2 of 55, pO2 of 85 and HCO3 of 29. Dietary is on board and will be starting tube feeds today. His potassium is 3.5 is being replaced his magnesium is 1.3 and being replaced. His chest x-ray was reviewed and lines are stable ET tube can be advanced to 3 cm. He has a persistent right loculated pleural effusion and a trace left pleural effusion. Infectious disease has been consulted. He continues on antibiotics. Mother is at bedside updated on plan of care. No plans for extubation today. 06/07/18- patient is being seen examined and evaluated today on rounds in the intensive care unit. Patient continues on mechanical ventilation with propofol for sedation. Current mechanical ventilator settings are assist-control mode with respiratory rate of 20, tidal volume of 550, FiO2 80%, and a PEEP of 8. Patient's blood gases from this morning reveal a pH of 7.38 pCO2 of 55, pO2 of 67, and HCO3 of 33. The ABGs were done on 70% of FiO2 and were titrated up to 80% after that. He did know to have a slight increase in his temperature this morning and Ofirmev given. He also was noted to be tachycardiac and Ativan was given for the CIWA protocol. He continues to have moderate amount of secretions from ET tube. He has been tolerating his tube feedings. He has been making good urine approximately 70 per hour. Infectious disease did see the patient yesterday. His ammonia also did improve to 31 today. 06/08/18 to 06/10/[address] Velazquez's notes for coverage 06/11/18- patient is being seen examined and evaluated today on rounds. He is resting up in bed on BiPAP, BiPAP settings are IPAP of 15, EPAP of 10, FiO2 70% . He is noted to have oxygen desaturations with removal of the BiPAP. He has taken it off intermittently for quick sips of water without issues. He has no issues with swallowing water. He has been making good urine. He is alert and active. Mother at bedside. Electrolytes being replaced. Chest x-ray has been reviewed. His hemoglobin is 7.7 today. He is afebrile denies any further complaints. 06/12/18- patient is being seen examined and evaluated today on rounds in the intensive care unit. The patient was discharged in addition from BiPAP to high flow airflow, currently he has an O2 flow rate of 50 L with an FiO2 of 55%, RT continues to wean down as tolerated. He did have an elevated CO2 this morning of 47 and Diamox has been started for that. His WBC count has improved to 10.7 today. His hemoglobin is stable at 7.2overt signs of bleeding. He has been tolerating his food and fluids. His mother is at bedside and updated on plan of care. He has not required any vasopressors. His respiratory status slowly improved. Electrolytes continued to be monitored and replaced. 06/13/18- patient is being seen examined and evaluated today on rounds in the intensive care unit. The patient continues on high flow airflow at 45 L and 43 % FiO2. He feels his breathing is improved. He does continue to have significant wheeze. His CO2 level is 38. Chest x-ray was reviewed and does show basilar consolidation right greater than the left with a small effusion. Potassium and magnesium continued to be replaced. He has had a good appetite. Continues to make good urine. Afebrile no further complaints. Mother at bedside updated on plan of care 06/14/18- patient is being seen examined and evaluated today on rounds. He was downgraded from the intensive care unit yesterday. He is now on the selective care unit. He is doing relatively well. He continues on high flow airflow. Settings have been weaned down and he is on a O2 flow rate of 40 L with an FiO2 of 35%. We will continue to try to wean him off this. He has been hemodynamically stable. All labs and reports have been reviewed and are improving. Chest x-ray was reviewed from this morning and shows improving aeration of the right lung base with persistent multifocal PACs and trace left pleural effusion 06/15/18-06/16/18- please Darrianr. Flo Avila note 06/17/18- patient is being seen examined and evaluated today on rounds. He is resting up in bed on 8 L of supplemental oxygen via nasal cannula. He has been working with therapy. He is being evaluated by Dr. Hanson for possible inpatient rehab. Chest x-rays continued to improve. He is afebrile no further complaints. 06/18/18- patient is being seen examined and evaluated today on rounds. He continues to have shortness of breath with exertion and activity. He has been titrated down to 2 L of supplemental oxygen via nasal cannula. He did go for a CT of the chest yesterday which did reveal extensive bilateral pulmonary infiltrates and atelectasis, loculated right-sided pneumothorax, mild thoracic compression fracture small pericardial effusion, and mild mediastinal adenopathy. When reviewing his past radiologic films, it appears that the pneumothorax developed somewhere between 06/09 and 06/11. Cardiothoracic surgery was consult and for this pneumothorax with possible decortication. 06/19/2018: Patient seen and examined. His mother is at bedside. The patient is agreeable to transfer to [facility]. The patient and his mother had multiple questions which were all answered. The patient has been hemodynamically stable. He is on 2 L nasal cannula. He has been working with physical therapy. Objective - Vital Signs Vital signs: Vital Signs Temp 97.1 F L 06/19/18 08:00 Pulse 102 H 06/19/18 08:37 Resp 18 06/19/18 08:00 BP 114/59 06/19/18 08:00 Pulse Ox 95 06/19/18 08:24 Intake & Output 06/18/18 06/19/18 06/19/18 18:59 06:59 18:59 Intake Total 360 280 240 Output Total 2200 1950 900 Balance -7349 -2797 -660 Weight 76.4 kg 76.4 kg Intake: IV 100 Ampicillin-Sulbactam 3 gm 100 In Sodium Chloride 0.9% 100 ml @ 100 mls/hr IVPB Q6HR [facility] Rx#:[id number] Intake, IV Titration 180 Amount Sodium Chloride 0.9% 1, 80 000 ml @ 10 mls/hr IV . Q24H [facility] Rx#:[id number] Sodium Ferric Gluconat- 100 Sucrose 125 mg In Sodium Chloride 0.9% 100 ml @ 100 mls/hr IVPB HS [facility] Rx #:[id number] Oral 360 240 Output: Urine 2200 1950 900 Other: Voiding Method Urinal Urinal # Voids 1 2 # Bowel Movements 1 ABP, PAP, CO, CI - Last Documented Arterial Blood Pressure 125/59 - Exam GENERAL EXAM: Alert, active, comfortable in no apparent distress on high flow airvo. HEAD: Normocephalic. EYES: Normal reaction of pupils, equal size. NOSE: Clear with pink turbinates. THROAT: No erythema or exudates. NECK: No masses, no JVD. CHEST: No chest wall deformity. LUNGS: Lungs noted to be coarse throughout with some scattered rhonchi CVS: S1 and S2 normal with no audible mumurs, regular rhythm. ABDOMEN: No hepatosplenomegaly, normal bowel sounds, no guarding or rigidity. EXTREMITIES: no edema noted, pedal pulses palpable. CENTRAL NERVOUS SYSTEM: No focal deficits, tone is normal in all 4 extremities. - Labs CBC & Chem 7: 06/19/18 05:40 06/19/18 05:40 Labs: Abnormal Lab Results - Last 24 Hours (Table) 06/18/18 06/18/18 06/18/18 Range/Units 11:32 16:18 20:46 RBC (4.30-5.90) m/uL Hgb (13.0-17.5) gm/dL Hct (39.0-53.0) % RDW (11.5-15.5) % Plt Count (150-450) k/uL Lymphocytes # (1.0-4.8) k/uL Sodium (137-145) mmol/L Chloride (98-107) mmol/L Carbon Dioxide (22-30) mmol/L Creatinine (0.66-1.25) mg/dL POC Glucose (mg/dL) 180 H 291 H 152 H (75-99) mg/dL Glucose (74-99) mg/dL Total Protein (6.3-8.2) g/dL Albumin (3.5-5.0) g/dL 06/19/18 06/19/18 06/19/18 Range/Units 05:40 05:40 05:53 RBC 2.87 L (4.30-5.90) m/uL Hgb 8.2 L (13.0-17.5) gm/dL Hct 26.1 L (39.0-53.0) % RDW 21.4 H (11.5-15.5) % Plt Count 502 H (150-450) k/uL Lymphocytes # 0.3 L (1.0-4.8) k/uL Sodium 135 L (137-145) mmol/L Chloride 97 L (98-107) mmol/L Carbon Dioxide 32 H (22-30) mmol/L Creatinine 0.53 L (0.66-1.25) mg/dL POC Glucose (mg/dL) 153 H (75-99) mg/dL Glucose 119 H (74-99) mg/dL Total Protein 5.6 L (6.3-8.2) g/dL Albumin 2.7 L (3.5-5.0) g/dL Assessment and Plan Assessment: Acute hypoxic and hypercapnic respiratory failure, improving Loculated right pneumothorax Toxic metabolic encephalopathy, suspect alcohol intoxication Severe lactic acidosis, resolved Anion gap metabolic acidosis, resolved Severe dehydration, resolved Aspiration pneumonia NSTEMI Septic shock, resolved Leukocytosis Anemia, normochromic, normocytic Sinus tachycardia History of DVTs and seizure disorder Hyponatremia Nicotine dependence Hyperglycemia Alcohol abuse Right-sided pneumothorax Plan Patient may benefit from possible decortication Patient is agreeable to alcoholic rehab upon discharge, when medically stable Continue to wean down oxygen as tolerated to keep oxygen saturations greater than 90% Continue to monitor and replace electrolytes per protocol Blood, urine, sputum cultures reviewed Antibiotics: ID on consult Monitor urine output and renal function Insulin sliding scale and Accu-Cheks Duo nebs and Pulmicort IV steroids CIWA protocol Monitor and replace electrolytes per protocol Decrease IVF to 20 cc/hr GI and DVT prophylaxis Consult PT and OT, physical medicine also on consult Thiamine, folate, multivitamin Seizure and aspiration precautions ID, Neuro and cardio on consult Advance diet as tolerated Encourage IS Patient's mother at bedside is updated to patient's condition, plan of care, plan for transfer to [facility]
[2018-06-19 11:42] LABS: Glucose,Whole Blood 129 mg/dL (75-99)
--- NOTE | 2018-06-19 12:14 | PN ---
PROGRESS NOTE DATE OF SERVICE: 06/19/2018 REASON FOR FOLLOW UP: 1. Aspiration pneumonia. 2. Patient with abnormal CT suggestive of a loculated effusion/pneumothorax. INTERVAL HISTORY: The patient is afebrile. He has been breathing comfortably. Denies having any chest pain or shortness of breath. Occasional cough. No nausea, vomiting, abdominal pain, no diarrhea. PHYSICAL EXAMINATION: Blood pressure is 114/59 with a pulse of 109, temperature 97.1. He is 94% on 2 L nasal cannula. General description is a middle-aged male, lying in bed in no distress. RESPIRATORY SYSTEM: Unlabored breathing, clear to auscultation anteriorly. HEART: S1, S2. Regular rate and rhythm. ABDOMEN: Soft, no tenderness. LABS: Hemoglobin 8.8, white count 6.5, BUN of 13, creatinine 0.53. DIAGNOSTIC IMPRESSION AND PLAN: Patient with episodes of aspiration pneumonia. Sputum has been negative. Blood culture negative. Patient responded well to the Unasyn, now with evidence of a loculated pneumothorax for which a VATS procedure has been recommended by Pulmonary with possible transferred to [facility]. Keep the patient on the Unasyn at this point. Continue supportive care. MMODL / IJN: [id number] /
[2018-06-19] MEDS: THIAMINE 100 MG TAB PO SCH (12:24)
[2018-06-19] MEDS: SODIUM CHLORIDE 0.9% 1,000 ML IV SCH (16:46)
[2018-06-19 16:58] LABS: Glucose,Whole Blood 161 mg/dL (75-99)
[2018-06-19] MEDS: BUDESONIDE 0.5 MG/2 ML NEBU INHALATION SCH (19:02)
[2018-06-19 20:30] LABS: Glucose,Whole Blood 136 mg/dL (75-99)
[2018-06-19] MEDS: MONTELUKAST 10 MG TAB PO SCH (20:51)
[2018-06-19] MEDS: SODIUM FERRIC GLUCONAT-SUCROSE 125 MG in SODIUM CHLORIDE 0.9% 100 ML IVPB SCH (21:07)
--- NOTE | 2018-06-19 23:11 | PN ---
PROGRESS NOTE SUBJECTIVE: A 52-year-old white male, status post respiratory failure with bilateral extensive pneumonia, hemopneumothorax for which chest tube is needs to be placed. VITAL SIGNS: Stable, afebrile. CARDIOVASCULAR: S1, S2. LUNGS: Clear. GI: Soft. HEMATOLOGY: Negative Homans'. VASCULAR: Normal dorsalis pedis, posterior pulses. ASSESSMENT: 1. Acute respiratory failure. 2. Sepsis. 3. Pneumothorax. Continue current treatment. Rehab center will be transferred. Repeat CT scan of the chest in 2 weeks. Home IV antibiotics will be needed. Please see further orders. MMODL / IJN: [id number] /
[2018-06-19] MEDS ORDERED: methylPREDNISolone SOD SUCCI 125 MG/2 ML VIAL ONE (23:46)
[2018-06-19] MEDS ORDERED: HEPARIN SODIUM,PORCINE 5,000 UNIT/ML 1 ML VIAL ONE (23:46)
[2018-06-20] MEDS: methylPREDNISolone SOD SUCCI 40 MG/ML 1 ML VIAL IV SCH ×2 (05:19→08:35)
[2018-06-20] MEDS: AMPICILLIN-SULBACTAM 3 GM in SODIUM CHLORIDE 0.9% 100 ML IVPB SCH ×2 (05:19→05:31)
[2018-06-20] MEDS: HEPARIN SODIUM,PORCINE 5,000 UNIT/ML 1 ML VIAL SQ SCH ×2 (05:19→08:35)
[2018-06-20 06:17] LABS: Anisocytosis Moderate; Basophils % (A) 0 %; Eosinophils % (A) 0 %; HCT 27.8 % (39.0-53.0); HGB 8.7 gm/dL (13.0-17.5); Hypochromasia Slight; Lymphocytes # (A) 0.3 k/uL (1.0-4.8); Lymphocytes % (A) 4 %; MCH 28.8 pg (25.0-35.0); MCHC 31.3 g/dL (31.0-37.0); MCV 92.1 fL (80.0-100.0); Macrocytosis Slight; Mean Platelet Volume 6.5; Monocytes # (A) 0.4 k/uL (0-1.0); Monocytes % (A) 5 %; Neutrophils # (A) 6.9 k/uL (1.3-7.7); Neutrophils % (A) 90 %; Platelet Count 433 k/uL (150-450); RBC 3.02 m/uL (4.30-5.90); RDW 21.1 % (11.5-15.5); WBC 7.7 k/uL (3.8-10.6)
[2018-06-20 06:26] LABS: Glucose,Whole Blood 149 mg/dL (75-99)
[2018-06-20 06:40] LABS: ALT 31 U/L (21-72); AST 16 U/L (17-59); Albumin 2.9 g/dL (3.5-5.0); Alkaline Phosphatase 71 U/L (38-126); Anion Gap 5 mmol/L; Blood Urea Nitrogen 17 mg/dL (9-20); Calcium 8.9 mg/dL (8.4-10.2); Carbon Dioxide 33 mmol/L (22-30); Chloride 98 mmol/L (98-107); Glucose 118 mg/dL (74-99); Potassium 4.9 mmol/L (3.5-5.1); Sodium 136 mmol/L (137-145); Total Bilirubin 0.2 mg/dL (0.2-1.3); Total Protein 5.9 g/dL (6.3-8.2)
[2018-06-20] MEDS: INSULIN ASPART 100 UNIT/ML 1 ML 10 ML VIAL SQ SCH ×4 (07:11→12:34)
[2018-06-20] MEDS: BUDESONIDE 0.5 MG/2 ML NEBU INHALATION SCH (08:04)
[2018-06-20] MEDS: IPRATROPIUM-ALBUTEROL 3 ML NEB INHALATION SCH ×2 (08:04→11:50)
[2018-06-20] MEDS: THIAMINE 100 MG TAB PO SCH (08:35)
[2018-06-20] MEDS: FUROSEMIDE 10 MG/ML 2 ML VIAL IV SCH (08:35)
[2018-06-20] MEDS: PANTOPRAZOLE 40 MG/10 ML VIAL IV SCH (08:35)
[2018-06-20] MEDS: guaiFENesin 600 MG TABLET.ER PO SCH (08:35)
[2018-06-20] MEDS ORDERED: AMOXIC-POT CLAV 875-125MG 1 EACH TAB PO SCH (09:00)
--- NOTE | 2018-06-20 10:39 | P.PN ---
<Judith Singletary E - Last Filed: 06/20/18 10:36> Subjective Progress Note Date: 06/20/18 History of present illness: This is a 52-year-old gentleman who is well-known to [facility]. History is unable to be obtained from the patient as he is sedated on the ventilator. Per the emergency room note the patient was found unresponsive and EMS was called. The Patient's O2 saturation was 50%. He had minimal improvement on nonrebreather. The patient was to Make an hypoxic and subsequently intubated in the emergency room. The patient was found to have an elevated lactic acid of 12.6. He was profoundly acidotic with a pH of less than 7.0. The patient was hypotensive and started on Levophed. He is currently on 6 mcg/m of Levophed. He is having a large amount of green and secretions from the ET tube. It is assumed the patient aspirated. The patient is on 100% FiO2 and PEEP of 8. Bronchoscopy is performed to clear secretions. The patient has been given 2 L of IV fluids in the emergency room. He has maintenance fluids running at 100 mL per hour. He does intermittently respond to commands. The patient is a known alcoholic. He has had multiple admissions for alcohol intoxication and subsequently go through withdrawals. The patient has refused alcohol rehab in the past. The patient has required BiPAP in the past. He does drink about a pound of vodka daily. The patient's chest x-ray shows right lower lobe infiltrate. EKG shows sinus tachycardia. He also has slightly elevated troponins. Interval History: 06/06/18- patient is being seen examined and evaluated today on rounds. He is on mechanical ventilation with propofol for sedation. Current mechanical ventilation settings are assist control mode with a respiratory rate of 20, tidal volume of 550, FiO2 of 70%, and a PEEP of 8. Currently he is on Levophed at 8 mics, and propofol at 30 mics. OG tube has green bile like output, ET tube continues to have green tea-like secretions. He has been making urine. He has got a total of 4 L of fluid resuscitation. His ABGs from this morning reveal a pH of 7.33, pCO2 of 55, pO2 of 85 and HCO3 of 29. Dietary is on board and will be starting tube feeds today. His potassium is 3.5 is being replaced his magnesium is 1.3 and being replaced. His chest x-ray was reviewed and lines are stable ET tube can be advanced to 3 cm. He has a persistent right loculated pleural effusion and a trace left pleural effusion. Infectious disease has been consulted. He continues on antibiotics. Mother is at bedside updated on plan of care. No plans for extubation today. 06/07/18- patient is being seen examined and evaluated today on rounds in the intensive care unit. Patient continues on mechanical ventilation with propofol for sedation. Current mechanical ventilator settings are assist-control mode with respiratory rate of 20, tidal volume of 550, FiO2 80%, and a PEEP of 8. Patient's blood gases from this morning reveal a pH of 7.38 pCO2 of 55, pO2 of 67, and HCO3 of 33. The ABGs were done on 70% of FiO2 and were titrated up to 80% after that. He did know to have a slight increase in his temperature this morning and Ofirmev given. He also was noted to be tachycardiac and Ativan was given for the CIWA protocol. He continues to have moderate amount of secretions from ET tube. He has been tolerating his tube feedings. He has been making good urine approximately 70 per hour. Infectious disease did see the patient yesterday. His ammonia also did improve to 31 today. 06/08/18 to 06/10/[address] Velazquez's notes for coverage 06/11/18- patient is being seen examined and evaluated today on rounds. He is resting up in bed on BiPAP, BiPAP settings are IPAP of 15, EPAP of 10, FiO2 70% . He is noted to have oxygen desaturations with removal of the BiPAP. He has taken it off intermittently for quick sips of water without issues. He has no issues with swallowing water. He has been making good urine. He is alert and active. Mother at bedside. Electrolytes being replaced. Chest x-ray has been reviewed. His hemoglobin is 7.7 today. He is afebrile denies any further complaints. 06/12/18- patient is being seen examined and evaluated today on rounds in the intensive care unit. The patient was discharged in addition from BiPAP to high flow airflow, currently he has an O2 flow rate of 50 L with an FiO2 of 55%, RT continues to wean down as tolerated. He did have an elevated CO2 this morning of 47 and Diamox has been started for that. His WBC count has improved to 10.7 today. His hemoglobin is stable at 7.2overt signs of bleeding. He has been tolerating his food and fluids. His mother is at bedside and updated on plan of care. He has not required any vasopressors. His respiratory status slowly improved. Electrolytes continued to be monitored and replaced. 06/13/18- patient is being seen examined and evaluated today on rounds in the intensive care unit. The patient continues on high flow airflow at 45 L and 43 % FiO2. He feels his breathing is improved. He does continue to have significant wheeze. His CO2 level is 38. Chest x-ray was reviewed and does show basilar consolidation right greater than the left with a small effusion. Potassium and magnesium continued to be replaced. He has had a good appetite. Continues to make good urine. Afebrile no further complaints. Mother at bedside updated on plan of care 06/14/18- patient is being seen examined and evaluated today on rounds. He was downgraded from the intensive care unit yesterday. He is now on the selective care unit. He is doing relatively well. He continues on high flow airflow. Settings have been weaned down and he is on a O2 flow rate of 40 L with an FiO2 of 35%. We will continue to try to wean him off this. He has been hemodynamically stable. All labs and reports have been reviewed and are improving. Chest x-ray was reviewed from this morning and shows improving aeration of the right lung base with persistent multifocal PACs and trace left pleural effusion 06/15/18-06/16/18- please DarrianrRobin Avila note 06/17/18- patient is being seen examined and evaluated today on rounds. He is resting up in bed on 8 L of supplemental oxygen via nasal cannula. He has been working with therapy. He is being evaluated by Dr. Hanson for possible inpatient rehab. Chest x-rays continued to improve. He is afebrile no further complaints. 06/18/18- patient is being seen examined and evaluated today on rounds. He continues to have shortness of breath with exertion and activity. He has been titrated down to 2 L of supplemental oxygen via nasal cannula. He did go for a CT of the chest yesterday which did reveal extensive bilateral pulmonary infiltrates and atelectasis, loculated right-sided pneumothorax, mild thoracic compression fracture small pericardial effusion, and mild mediastinal adenopathy. When reviewing his past radiologic films, it appears that the pneumothorax developed somewhere between 06/09 and 06/11. Cardiothoracic surgery was consult and for this pneumothorax with possible decortication. 06/19/2018: Patient seen and examined. His mother is at bedside. The patient is agreeable to transfer to [facility]. The patient and his mother had multiple questions which were all answered. The patient has been hemodynamically stable. He is on 2 L nasal cannula. He has been working with physical therapy. Addendium to 06/19/18-[facility] is out of network for the patient. Case is discussed with a thoracic surgeon at outside hospital. Will see patient in an outpatient setting and evaluate at that time. Recommend repeat CT in 3-4 weeks. Ok to proceed with rehab placement and discharge planning with close outpatient pulmonary and thoracic surgery follow up. 06/20/18- patient being seen examined and evaluated today on rounds. He is resting up in bed on 2 L of supplemental oxygen. His steroids have been switched over to oral. Antibiotics being switched over to oral. He should be going to rehab today. All labs and reports have been reviewed. He has no further complaints. Mother at bedside updated on plan of care Objective - Vital Signs Vital signs: Vital Signs Temp 97.3 F L 06/20/18 08:43 Pulse 78 06/20/18 08:56 Resp 18 06/20/18 08:56 BP 102/66 06/20/18 08:43 Pulse Ox 95 06/20/18 08:43 Intake & Output 06/19/18 06/20/18 06/20/18 18:59 06:59 18:59 Intake Total 720 118 Output Total 2600 4200 500 Balance -7965 -4430 -382 Weight 76.4 kg 75.7 kg Intake: Oral 720 118 Output: Urine 2600 4200 500 Other: Voiding Method Urinal Urinal Urinal # Voids 600 # Bowel Movements 0 ABP, PAP, CO, CI - Last Documented Arterial Blood Pressure 125/59 - Exam GENERAL EXAM: Alert, active, comfortable in no apparent distress on high flow airvo. HEAD: Normocephalic. EYES: Normal reaction of pupils, equal size. NOSE: Clear with pink turbinates. THROAT: No erythema or exudates. NECK: No masses, no JVD. CHEST: No chest wall deformity. LUNGS: Lungs noted to be coarse throughout with some scattered rhonchi CVS: S1 and S2 normal with no audible mumurs, regular rhythm. ABDOMEN: No hepatosplenomegaly, normal bowel sounds, no guarding or rigidity. EXTREMITIES: no edema noted, pedal pulses palpable. CENTRAL NERVOUS SYSTEM: No focal deficits, tone is normal in all 4 extremities. - Labs CBC & Chem 7: 06/20/18 05:51 06/20/18 05:51 Labs: Abnormal Lab Results - Last 24 Hours (Table) 06/19/18 06/19/18 06/19/18 Range/Units 11:19 16:31 20:20 RBC (4.30-5.90) m/uL Hgb (13.0-17.5) gm/dL Hct (39.0-53.0) % RDW (11.5-15.5) % Lymphocytes # (1.0-4.8) k/uL Sodium (137-145) mmol/L Carbon Dioxide (22-30) mmol/L Creatinine (0.66-1.25) mg/dL Glucose (74-99) mg/dL POC Glucose (mg/dL) 129 H 161 H 136 H (75-99) mg/dL AST (17-59) U/L Total Protein (6.3-8.2) g/dL Albumin (3.5-5.0) g/dL 06/20/18 06/20/18 06/20/18 Range/Units 05:51 05:51 06:21 RBC 3.02 L (4.30-5.90) m/uL Hgb 8.7 L (13.0-17.5) gm/dL Hct 27.8 L (39.0-53.0) % RDW 21.1 H (11.5-15.5) % Lymphocytes # 0.3 L (1.0-4.8) k/uL Sodium 136 L (137-145) mmol/L Carbon Dioxide 33 H (22-30) mmol/L Creatinine 0.57 L (0.66-1.25) mg/dL Glucose 118 H (74-99) mg/dL POC Glucose (mg/dL) 149 H (75-99) mg/dL AST 16 L (17-59) U/L Total Protein 5.9 L (6.3-8.2) g/dL Albumin 2.9 L (3.5-5.0) g/dL Assessment and Plan Assessment: Assessment Acute hypoxic and hypercapnic respiratory failure Toxic metabolic encephalopathy, suspect alcohol intoxication Severe lactic acidosis Anion gap metabolic acidosis Severe dehydration Aspiration pneumonia NSTEMI Septic shock Leukocytosis Anemia, normochromic, normocytic Sinus tachycardia History of DVTs and seizure disorder Hyponatremia Nicotine dependence Hyperglycemia Alcohol abuse Right-sided pneumothorax Plan Patient is cleared for discharge from pulmonary standpoint to rehab facility Cardiothoracic surgery has been consulted for pneumothorax, patient would benefit from possible decortication in the outpatient setting Patient is agreeable to alcoholic rehab upon discharge, when medically stable Continue to wean down oxygen as tolerated to keep oxygen saturations greater than 90% Continue to monitor and replace electrolytes per protocol Repeat chest x-ray today Blood, urine, sputum cultures reviewed Antibiotics: ID on consult Monitor urine output and renal function Insulin sliding scale and Accu-Cheks Duo nebs and Pulmicort IV steroids CIWA protocol Monitor and replace electrolytes per protocol Maintenance IV fluids at 40 mL per hour GI and DVT prophylaxis Consult PT and OT, physical medicine also on consult Thiamine, folate, multivitamin Seizure and aspiration precautions ID, Neuro and cardio on consult Advance diet as tolerated Encourage IS Patient's mother at bedside is updated to patient's condition, plan of care I performed an examination of the patient and discussed their management with the nurse practitioner. I have reviewed the nurse practitioner's note and agree with the documented findings and plan of care. <Esha Ambrose A - Last Filed: 06/20/18 11:02> Objective - Vital Signs Vital signs: Vital Signs Temp 97.3 F L 06/20/18 08:43 Pulse 78 06/20/18 08:56 Resp 18 06/20/18 08:56 BP 102/66 06/20/18 08:43 Pulse Ox 95 06/20/18 08:43 Intake & Output 06/19/18 06/20/18 06/20/18 18:59 06:59 18:59 Intake Total 720 118 Output Total 2600 4200 500 Balance -2596 -8400 -382 Weight 76.4 kg 75.7 kg Intake: Oral 720 118 Output: Urine 2600 4200 500 Other: Voiding Method Urinal Urinal Urinal # Voids 600 # Bowel Movements 0 ABP, PAP, CO, CI - Last Documented Arterial Blood Pressure 125/59 - Labs CBC & Chem 7: 06/20/18 05:51 06/20/18 05:51 Labs: Abnormal Lab Results - Last 24 Hours (Table) 06/19/18 06/19/18 06/19/18 Range/Units 11:19 16:31 20:20 RBC (4.30-5.90) m/uL Hgb (13.0-17.5) gm/dL Hct (39.0-53.0) % RDW (11.5-15.5) % Lymphocytes # (1.0-4.8) k/uL Sodium (137-145) mmol/L Carbon Dioxide (22-30) mmol/L Creatinine (0.66-1.25) mg/dL Glucose (74-99) mg/dL POC Glucose (mg/dL) 129 H 161 H 136 H (75-99) mg/dL AST (17-59) U/L Total Protein (6.3-8.2) g/dL Albumin (3.5-5.0) g/dL 06/20/18 06/20/18 06/20/18 Range/Units 05:51 05:51 06:21 RBC 3.02 L (4.30-5.90) m/uL Hgb 8.7 L (13.0-17.5) gm/dL Hct 27.8 L (39.0-53.0) % RDW 21.1 H (11.5-15.5) % Lymphocytes # 0.3 L (1.0-4.8) k/uL Sodium 136 L (137-145) mmol/L Carbon Dioxide 33 H (22-30) mmol/L Creatinine 0.57 L (0.66-1.25) mg/dL Glucose 118 H (74-99) mg/dL POC Glucose (mg/dL) 149 H (75-99) mg/dL AST 16 L (17-59) U/L Total Protein 5.9 L (6.3-8.2) g/dL Albumin 2.9 L (3.5-5.0) g/dL Assessment and Plan Assessment: Patient seen and examined. He is on 2L NC. He states he is feeling ok. He is planning to go to rehab today and will enroll in alcohol rehab after. He has been hemodynamically stable. Ok to DC from pulmonary standpoint. Outpatient follow up with repeat CT in 3-4 weeks. ~Esha Ambrose DO
[2018-06-20 11:34] VITALS: BP 102/74; TEMP 97.4
[2018-06-20 11:40] LABS: Glucose,Whole Blood 120 mg/dL (75-99)
[2018-06-20] MEDS ORDERED: predniSONE 20 MG TAB PO SCH (12:00)
[2018-06-20 12:08] VITALS: PULSE 90
--- NOTE | 2018-06-20 12:30 | DS ---
DISCHARGE SUMMARY DISCHARGE MEDICATIONS: 1. Augmentin 875 one b.i.d. for a week. 2. DuoNeb updraft q.i.d. and q.2 hours p.r.n. 3. Iron sulfate 325 mg daily. 4. Heparin 5000 units subcu q.8 hours. 5. Tylenol 650 q.4 hours p.r.n. for pain. 6. Lasix 20 mg p.o. daily. 7. Omeprazole 20 mg daily. 8. Insulin 4 units subcu. Accu-Chek a.c. and at bedtime for sugars for now per protocol. 9. Prednisone taper 60 mg daily for 3 days, 40 mg for 3 days, 20 mg for 3 days, 10 mg for 3 days. 10.Budesonide, Pulmicort 0.5 mg nebulizer updraft b.i.d. 11.Singulair 10 mg daily. 12.Mucinex 1200 mg b.i.d. 13.Thiamin 100 mg daily. PROGNOSIS: Guarded. CONDITION: Stable. HOSPITAL COURSE OF EVENTS: This is a white male who was admitted with acute respiratory failure secondary to aspiration pneumonia, acute respiratory hypoxemic failure, alcohol withdrawal. He had a long recovery course. He is on a ventilator for multiple days, is placed on adrenal crisis protocol. He was placed on [facility] protocol for alcohol withdrawal. He is on broad- spectrum IV antibiotics and updraft treatments. Patient is stabilized from medical standpoint. He will go under Dr. Jamarcus Duque's care to the half-way for further care and follow up he will need to go to [facility] from the [facility] at this time. MMODL / IJN: [id number] /
--- NOTE | 2018-06-20 19:42 | PN ---
PROGRESS NOTE DATE OF SERVICE: 06/20/2018. REASON FOR FOLLOWUP: Aspiration pneumonia. INTERVAL HISTORY: The patient was seen on rounds earlier this afternoon. The patient has been afebrile, getting ready for discharge. The patient denies having any chest pain, shortness of breath or cough. No abdominal pain and no diarrhea. EXAMINATION: Blood pressure is 102/74 with a pulse of 97, temperature 97.4. He is 92% 2 L nasal cannula. General description is a middle-aged male lying in bed in no distress. RESPIRATORY SYSTEM: Unlabored breathing. Clear to auscultation anteriorly. HEART: S1, S2. Regular rate and rhythm. ABDOMEN: Soft, no tenderness. EXTREMITIES: No edema of the feet. LABS: White count 7.7, BUN of 17, creatinine 0.57. DIAGNOSTIC IMPRESSION AND PLAN: Patient with aspiration pneumonia. Sputum has been negative for resistant pathogen. Has received about 2 weeks of IV antibiotic therapy. The patient had a course of oral Augmentin and close outpatient followup. MMODL / IJN: [id number] /
[2018-06-21] MEDS ORDERED: FUROSEMIDE 20 MG TAB PO SCH (09:00)
--- NOTE | 2018-06-21 13:39 | CDI ---
Last Revision, October 2017 Documentation Clarification Form Date: 06/21/18 From: Chio Alexander Heidi Adams, Tour Director Hours-8:30 am & 5 pm Janet Admit Date: 06/05/2018 4:13:00 PM Patient Name: Rojas Rodrigues Visit Number: [id number] Discharge Date: 06/20/18 ATTENTION: The Clinical Documentation Specialists (CDI) and [facility] Coding Staff appreciate your assistance in clarifying documentation. Please respond to the clarification below the line at the bottom and electronically sign. The CDI & [facility] Coding staff will review the response and follow-up if needed. Please note: Queries are made part of the Legal Health Record. If you have any questions, please contact the author of this message via ITS. Dr. Jamarcus Duque Sepsis with severe sepsis and septic shock was documented through out the medical record by you and multiple providers. History/Risk Factors: asp pneumonia, alcoholism, encephalopathy, NSTEMI In your professional opinion, sepsis diagnosis is not included in your discharge summary. Please clarify if these findings signify one of the following conditions: Sepsis ruled in Sepsis ruled out Other, please specify Unable to determine Please continue to document in your progress notes and discharge summary in order to capture severity of illness and risk of mortality. Include clinical findings that support your diagnosis. MTDD
--- NOTE | 2018-06-21 13:44 | CDI ---
Last Revision, October 2017 Documentation Clarification Form Date: 06/21/18 From: Chio Alexander Heidi Adams, Spar Machine Operator Helper Hours-8:30 am & 5 pm Janet Admit Date: 06/05/2018 4:13:00 PM Patient Name: Rojas Rodrigues Visit Number: [id number] Discharge Date: 06/20/18 ATTENTION: The Clinical Documentation Specialists (CDI) and [facility] Coding Staff appreciate your assistance in clarifying documentation. Please respond to the clarification below the line at the bottom and electronically sign. The CDI & [facility] Coding staff will review the response and follow-up if needed. Please note: Queries are made part of the Legal Health Record. If you have any questions, please contact the author of this message via ITS. Dr. Aden Velazquez Diastolic heart failure is documented in your progress notes for 06/10 &06/11. Please specify the acuity of this condition with terms such as: Acute Chronic Acute and chronic Acute on chronic Other (please specify in the medical record) Clinically unable to further specify Unknown acute MTDD
--- NOTE | 2018-06-25 11:16 | XR ---
EXAMINATION TYPE: XR chest 2V DATE OF EXAM: 06/20/2018 COMPARISON: 06/19/2018 INDICATION: Short of breath, pneumothorax TECHNIQUE: Frontal and lateral views of the chest are obtained. Image is presented 06/24/2018 for shai celina. FINDINGS: The heart size is normal. The pulmonary vasculature is normal. The lungs are clear. Loculated pneumothorax at the right cost phrenic angle is not excluded. No apic al pneumothorax is evident. Mild infiltrate is at the right base. Some platelike atelectasis at the l eft base. Examination appears stable from comparison. IMPRESSION: 1. Loculated pneumothorax at the right costophrenic angle appears stable. 2. Right lower lobe infiltrate. Correlate for pneumonia. Atelectasis should also be considered. 3. Plate atelectasis left base.
--- NOTE | 2018-06-26 12:44 | CDI ---
Documentation Clarification Form Date: 06/26/18 From: Chio Munoz/Heidi Adams-Vehicle Operator Admit Date: 06/05/2018 Patient Name: Rojas Rodrigues Visit Number: [id number] Discharge Date: 06/20/18 ATTENTION: The Clinical Documentation Specialists (CDI) and [facility] Coding Staff appreciate your assistance in clarifying documentation. Please respond to the clarification below the line at the bottom and electronically sign. The CDI & [facility] Coding staff will review the response and follow-up if needed. Please note: Queries are made part of the Legal Health Record. If you have any questions, please contact the author of this message via ITS. Dr. Jamarcus Duque Sepsis with severe sepsis and septic shock was documented through out the medical record. However, it is not documented in your Discharge Summary. History/Risk Factors: asp pneumonia, alcoholism, encephalopathy, NSTEMI WBC 37.6 Lactic Acid 1.9 BP 88/61 In your professional opinion, Please clarify if: Sepsis ruled in Sepsis ruled out Other, please specify Unable to determine MTDD
--- NOTE | 2018-07-01 11:39 | CDI ---
Documentation Clarification Form Date: 07/01/18 From: Chio Munoz/ Heidi Adams-Extrusion Former Phone: Admit Date: 06/05/2018 4:13:00 PM Patient Name: Rojas Rodrigues Visit Number: [id number] Discharge Date: 06/20/18 ATTENTION: The Clinical Documentation Specialists (CDI) and [facility] Coding Staff appreciate your assistance in clarifying documentation. Please respond to the clarification below the line at the bottom and electronically sign. The CDI & [facility] Coding staff will review the response and follow-up if needed. Please note: Queries are made part of the Legal Health Record. If you have any questions, please contact the author of this message via ITS. Jamarcus Murray MD Sepsis with severe sepsis and septic shock was documented through out the medical record. History/Risk Factors: asp pneumonia, alcoholism, encephalopathy, NSTEMI Sepsis diagnosis is not included in your discharge summary. Please clarify if these findings signify one of the following conditions: Sepsis ruled in Sepsis ruled out Other, please specify Unable to determine MTDD
--- NOTE | 2018-07-04 14:14 | CDI ---
Documentation Clarification Form Date: 07/04/18 From: Heidi Adams Admit Date: 06/05/2018 4:13:00 PM Patient Name: Rojas Rodrigues Visit Number: [id number] Discharge Date: 06/20/18 ATTENTION: The Clinical Documentation Specialists (CDI) and [facility] Coding Staff appreciate your assistance in clarifying documentation. Please respond to the clarification below the line at the bottom and electronically sign. The CDI & [facility] Coding staff will review the response and follow-up if needed. Please note: Queries are made part of the Legal Health Record. If you have any questions, please contact the author of this message via ITS. Jamarcus Murray MD Sepsis with sever sepsis and septic shock was documented through out the medical record. History/Risk Factors: asp pneumonia, alcoholism, encephalopathy, NSTEMI In your professional opinion, sepsis diagnosis is not included in your discharge summary. Please clarify if these findings signify one of the following conditions: Sepsis ruled in Sepsis ruled out Other, please specify Unable to determine MTDD
--- NOTE | 2018-07-09 12:38 | CDI ---
Last Revision, October 2017 Documentation Clarification Form Date: 07/09/18 From: Chio Alexander Heidi Adams, Spout Liner Helper Hours-8:30 am & 5 pm [place] Admit Date: 06/05/2018 4:13:00 PM Patient Name: Rojas Rodrigues Visit Number: [id number] Discharge Date: 06/20/18 ATTENTION: The Clinical Documentation Specialists (CDI) and [facility] Coding Staff appreciate your assistance in clarifying documentation. Please respond to the clarification below the line at the bottom and electronically sign. The CDI & [facility] Coding staff will review the response and follow-up if needed. Please note: Queries are made part of the Legal Health Record. If you have any questions, please contact the author of this message via ITS. Dr. Duque, Sepsis with severe sepsis and septic shock was documented through out the medical record. History/Risk Factors: asp pneumonia, alcoholism, encephalopathy, NSTEMI However, sepsis diagnosis is not included in your discharge summary. Please clarify if these findings signify one of the following conditions: Sepsis ruled in Sepsis ruled out Other, please specify Unable to determine MTDD
--- NOTE | 2018-07-15 10:52 | CDI ---
Last Revision, October 2017 Documentation Clarification Form Date: 07/15/18 From: Chio Munoz Heidi Adams, Behavioral Health Associate Hours-8:30 am & 5 pm M-F Admit Date: 06/05/2018 4:13:00 PM Patient Name: Rojas Rodrigues Visit Number: [id number] Discharge Date: 06/20/18 ATTENTION: The Clinical Documentation Specialists (CDI) and [facility] Coding Staff appreciate your assistance in clarifying documentation. Please respond to the clarification below the line at the bottom and electronically sign. The CDI & [facility] Coding staff will review the response and follow-up if needed. Please note: Queries are made part of the Legal Health Record. If you have any questions, please contact the author of this message via ITS. Jamarcus Murray MD Sepsis with sever sepsis and septic shock was documented through out the medical record. History/Risk Factors: asp pneumonia, alcoholism, encephalopathy, NSTEMI WBC-37.6, Neutrophils-29.30, lactic acid-12.6 T-97.5, P-35, RR-6, BP-79/46 In your professional opinion, sepsis diagnosis is not included in your discharge summary. Please clarify if these findings signify one of the following conditions: Sepsis ruled in Sepsis ruled out Other, please specify Unable to determine Please continue to document in your progress notes and discharge summary in order to capture severity of illness and risk of mortality. Include clinical findings that support your diagnosis. MTDD
--- NOTE | 2018-07-15 21:19 | DS ---
DISCHARGE SUMMARY Please add to the discharge summary: ADDENDUM: DISCHARGE DIAGNOSIS: Sepsis ruled in. MMODL / IJN: [id number] /
--- NOTE | 2018-07-20 07:06 | DS ---
DISCHARGE SUMMARY ADDENDUM: DISCHARGE SUMMARY: Sepsis ruled out. MMODL / IJN: [id number] /
== END 2018-06-20 13:18 | DRG 853 ==
LOC: EC 12:01 → 6ICU 16:13 → 6SEL 06-13 18:40
PROVIDERS: ADMIT Family Medicine; ATTEND Family Medicine
PROC: 5A1955Z Respiratory Ventilation, Greater than 96 Consecutive Hours (ICD-10-PCS; principal; 2018-06-05)
PROC: 0B9J8ZX Drainage of Left Lower Lung Lobe, Via Natural or Artificial Opening Endoscopic, Diagnostic (ICD-10-PCS; 2018-06-05)
PROC: 0B9C8ZX Drainage of Right Upper Lung Lobe, Via Natural or Artificial Opening Endoscopic, Diagnostic (ICD-10-PCS; 2018-06-05)
PROC: 0B9G8ZX Drainage of Left Upper Lung Lobe, Via Natural or Artificial Opening Endoscopic, Diagnostic (ICD-10-PCS; 2018-06-05)
PROC: 0B9D8ZX Drainage of Right Middle Lung Lobe, Via Natural or Artificial Opening Endoscopic, Diagnostic (ICD-10-PCS; 2018-06-05)
PROC: 0B9H8ZX Drainage of Lung Lingula, Via Natural or Artificial Opening Endoscopic, Diagnostic (ICD-10-PCS; 2018-06-05)
PROC: 0B9F8ZX Drainage of Right Lower Lung Lobe, Via Natural or Artificial Opening Endoscopic, Diagnostic (ICD-10-PCS; 2018-06-05)
PROC: 0BH18EZ Insertion of Endotracheal Airway into Trachea, Via Natural or Artificial Opening Endoscopic (ICD-10-PCS; 2018-06-05)
PROC: 02HV33Z Insertion of Infusion Device into Superior Vena Cava, Percutaneous Approach (ICD-10-PCS; 2018-06-05)
PROC: 009U3ZX Drainage of Spinal Canal, Percutaneous Approach, Diagnostic (ICD-10-PCS; 2018-06-05)
PROC: 0D9670Z Drainage of Stomach with Drainage Device, Via Natural or Artificial Opening (ICD-10-PCS; 2018-06-05)
PROC: 3E0G76Z Introduction of Nutritional Substance into Upper GI, Via Natural or Artificial Opening (ICD-10-PCS; 2018-06-06)
PROC: 03HY32Z Insertion of Monitoring Device into Upper Artery, Percutaneous Approach (ICD-10-PCS; 2018-06-08)
PROC: 4A133B1 Monitoring of Arterial Pressure, Peripheral, Percutaneous Approach (ICD-10-PCS; 2018-06-08)
PROC: 4A133J1 Monitoring of Arterial Pulse, Peripheral, Percutaneous Approach (ICD-10-PCS; 2018-06-08)
PROC: 5A09357 Assistance with Respiratory Ventilation, Less than 24 Consecutive Hours, Continuous Positive Airway Pressure (ICD-10-PCS; 2018-06-10)
DX: A41.9 Sepsis, unspecified organism (principal); J69.0 Pneumonitis due to inhalation of food and vomit; R65.21 Severe sepsis with septic shock; J96.21 Acute and chronic respiratory failure with hypoxia; J96.22 Acute and chronic respiratory failure with hypercapnia; G92 Toxic encephalopathy; I21.4 Non-ST elevation (NSTEMI) myocardial infarction; I50.31 Acute diastolic (congestive) heart failure; E87.2 Acidosis; E87.1 Hypo-osmolality and hyponatremia; F10.239 Alcohol dependence with withdrawal, unspecified; J44.1 Chronic obstructive pulmonary disease with (acute) exacerbation; J45.901 Unspecified asthma with (acute) exacerbation; E46 Unspecified protein-calorie malnutrition; J93.81 Chronic pneumothorax; J98.11 Atelectasis; I31.3 Pericardial effusion (noninflammatory); M48.54XA Collapsed vertebra, not elsewhere classified, thoracic region, initial encounter for fracture; D69.6 Thrombocytopenia, unspecified; I11.0 Hypertensive heart disease with heart failure; G31.2 Degeneration of nervous system due to alcohol; E83.42 Hypomagnesemia; K70.9 Alcoholic liver disease, unspecified; R29.6 Repeated falls; E87.6 Hypokalemia; D63.8 Anemia in other chronic diseases classified elsewhere; K21.9 Gastro-esophageal reflux disease without esophagitis; E86.0 Dehydration; R73.9 Hyperglycemia, unspecified; F10.229 Alcohol dependence with intoxication, unspecified; R59.0 Localized enlarged lymph nodes; F31.9 Bipolar disorder, unspecified; F41.9 Anxiety disorder, unspecified; G40.909 Epilepsy, unspecified, not intractable, without status epilepticus; F17.200 Nicotine dependence, unspecified, uncomplicated; Z71.6 Tobacco abuse counseling; Z71.41 Alcohol abuse counseling and surveillance of alcoholic; Z79.899 Other long term (current) drug therapy; Z86.718 Personal history of other venous thrombosis and embolism; Z80.0 Family history of malignant neoplasm of digestive organs; Z81.8 Family history of other mental and behavioral disorders; Z83.49 Family history of other endocrine, nutritional and metabolic diseases; Z91.19 Patient's noncompliance with other medical treatment and regimen
CPT/HCPCS: 31500; 31624; 36415; 36556; 36600; 51702; 70450; 71045; 71046; 71250; 72125; 80048; 80053; 80202; 80306; 81001; 82140; 82272; 82550; 82553; 82805; 82945; 83036; 83605; 83690; 83735; 83880; 84100; 84132; 84157; 84484; 85025; 85610; 85730; 87040; 87070; 87086; 87205; 87220; 87324; 87529; 88108; 89050; 93005; 93306; 94002; 94003; 94640; 94660; 94760; 95816; 96361; 96365; 96366; 96367; 96375; 99291; 99292

== ENCOUNTER 2018-09-11 08:50 | Emergency (ER) | payer OTHER ==
[2018-09-11] MEDS ORDERED: SODIUM CHLORIDE 0.9% 1,000 ML IV STA (09:09)
[2018-09-11] MEDS ORDERED: LORazepam 2 MG/ML INJ IV STA ×2 (09:09→11:03)
--- NOTE | 2018-09-11 09:12 | ED ---
SOB HPI - General Chief Complaint: Shortness of Breath Stated Complaint: ZORA Time Seen by Provider: 09/11/18 08:58 Source: patient, EMS, RN notes reviewed, old records reviewed Mode of arrival: EMS Limitations: no limitations - History of Present Illness Initial Comments: This Patient is a 52-year-old male with history of chronic alcoholism presents emergency department today with chief complaint of shakiness, shortness of breath. He has history of COPD. He arrived via EMS and was given a breathing treatment and Solu-Medrol upon arrival. Patient reports improvement of symptoms after the these interventions. Patient reports is also been feeling shaky and anxious. He states his last drink was last night. Patient reports that he has had productive cough. No chest pain. He denies any nausea or vomiting or abdominal pain. - Related Data Home Medications Medication Instructions Recorded Confirmed Omeprazole 20 mg PO DAILY 06/05/18 09/11/18 Albuterol Inhaler [Ventolin Hfa 1 - 2 puff INHALATION RT-Q6H PRN 09/11/18 Inhaler] Gabapentin [Neurontin] 300 mg PO DAILY 09/11/18 09/11/18 Mometasone/Formoterol [Dulera 100 2 puff INHALATION RT-BID 09/11/18 09/11/18 Mcg/5 Mcg Inhaler] buPROPion XL [Wellbutrin Xl] 150 mg PO DAILY 09/11/18 09/11/18 Previous Rx's Medication Instructions Recorded Magnesium Oxide [Mag-Ox] 400 mg PO DAILY #7 tablet 09/11/18 chlordiazePOXIDE HCl [Librium] 25 mg PO QID 3 Days #12 capsule 09/11/18 predniSONE 10 mg PO DAILY #15 tab 09/11/18 Allergies Allergy/AdvReac Type Severity Reaction Status Date / Time No Known Allergies Allergy Verified 09/11/18 09:33 Review of Systems ROS Statement: Those systems with pertinent positive or pertinent negative responses have been documented in the HPI. ROS Other: All systems not noted in ROS Statement are negative. Past Medical History Past Medical History: COPD, GERD/Reflux, Seizure Disorder, Syncope Additional Past Medical History / Comment(s): Severe ETOH abuse, alcohol withdrawal seizures/DTs, encephalopathy d/t alcohol, falls, thrombocytopenia, mastoiditis with surgery. History of Any Multi-Drug Resistant Organisms: None Reported Past Surgical History: Ear Surgery, Tonsillectomy Additional Past Surgical History / Comment(s): Bilateral mastoidectomies, sinus surgery and vocal cord scraping. Past Anesthesia/Blood Transfusion Reactions: No Reported Reaction Past Psychological History: Anxiety, Bipolar, Depression Smoking Status: Current every day smoker Past Alcohol Use History: Daily, Heavy Past Drug Use History: None Reported - Past Family History Father Family Medical History: Cancer Additional Family Medical History / Comment(s): Father was a stomach cancer survivor. He of spinal stenosis at the age of 88yrs. Mother Family Medical History: Hyperlipidemia Additional Family Medical History / Comment(s): Mother is living and is 85 yrs old. Brother(s) Additional Family Medical History / Comment(s): Bipolar, schizoprenia General Exam - General Exam Comments Initial Comments: 52-year-old male. Alert and oriented. No significant distress. Patient is somewhat shaky. The smell of alcohol as well as breath. Limitations: no limitations General appearance: alert, in no apparent distress Head exam: Present: atraumatic, normocephalic, normal inspection Eye exam: Present: normal appearance, PERRL, EOMI. Absent: scleral icterus, conjunctival injection, periorbital swelling ENT exam: Present: normal exam, mucous membranes moist Neck exam: Present: normal inspection. Absent: tenderness, meningismus, lymphadenopathy Respiratory exam: Present: normal lung sounds bilaterally. Absent: respiratory distress, wheezes, rales, rhonchi, stridor Cardiovascular Exam: Present: regular rate, normal rhythm, normal heart sounds. Absent: systolic murmur, diastolic murmur, rubs, gallop, clicks GI/Abdominal exam: Present: soft, normal bowel sounds. Absent: distended, tenderness, guarding, rebound, rigid Extremities exam: Present: normal inspection, full ROM, normal capillary refill. Absent: tenderness, pedal edema, joint swelling, calf tenderness Back exam: Present: normal inspection Neurological exam: Present: alert, oriented X3, CN II-XII intact, other ( Tremors noted) Psychiatric exam: Present: normal affect, normal mood Skin exam: Present: warm, dry, intact, normal color. Absent: rash Course Vital Signs 09/11/18 09/11/18 09/11/18 08:52 09:40 11:22 Temperature 97.8 F Pulse Rate 103 H 100 108 H Respiratory 20 18 22 Rate Blood Pressure 138/87 148/89 147/92 O2 Sat by Pulse 96 97 96 Oximetry 09/11/18 13:20 Temperature Pulse Rate 113 H Respiratory 20 Rate Blood Pressure 143/98 O2 Sat by Pulse 96 Oximetry Medical Decision Making - Medical Decision Making This patient's a 52-year-old male with history of CAD presents emergency room today with chief complaint of shakiness, anxiousness. Complaint of alcohol dictation difficult to breathing. COPD Patient. Given breathing treatment upon arrival and has resolution of wheezing. Lung sounds are clear. Chest x- ray shows no evidence of any acute process. His evidence of scarring from his previous pneumothorax. Patient vital signs are stable. Have low magnesium level. Given IV replacement of magnesium. Discussed likely related to likely use. At this time advised to the Patient for COPD exacerbation with outpatient steroids, nothing by mouth magnesium as well as Librium for alcohol abuse. Discussed close follow-up with primary care physician. All questions answered. - Lab Data Result diagrams: 09/11/18 09:10 09/11/18 09:10 Lab Results 09/11/18 09/11/18 09/11/18 Range/Units 09:10 09:10 09:10 WBC 4.2 (3.8-10.6) k/uL RBC 3.88 L (4.30-5.90) m/uL Hgb 12.6 L (13.0-17.5) gm/dL Hct 37.7 L (39.0-53.0) % MCV 97.3 (80.0-100.0) fL MCH 32.6 (25.0-35.0) pg MCHC 33.5 (31.0-37.0) g/dL RDW 15.6 H (11.5-15.5) % Plt Count 119 L (150-450) k/uL Neutrophils % 67 % Lymphocytes % 22 % Monocytes % 8 % Eosinophils % 2 % Basophils % 0 % Neutrophils # 2.8 (1.3-7.7) k/uL Lymphocytes # 0.9 L (1.0-4.8) k/uL Monocytes # 0.3 (0-1.0) k/uL Eosinophils # 0.1 (0-0.7) k/uL Basophils # 0.0 (0-0.2) k/uL PT (9.0-12.0) sec INR (<1.2) APTT (22.0-30.0) sec Sodium 127 L (137-145) mmol/L Potassium 3.9 (3.5-5.1) mmol/L Chloride 87 L (98-107) mmol/L Carbon Dioxide 21 L (22-30) mmol/L Anion Gap 19 mmol/L BUN 5 L (9-20) mg/dL Creatinine 0.50 L (0.66-1.25) mg/dL Est GFR (CKD-EPI)AfAm >90 (>60 ml/min/1.73 sqM) Est GFR (CKD-EPI)NonAf >90 (>60 ml/min/1.73 sqM) Glucose 99 (74-99) mg/dL Calcium 8.8 (8.4-10.2) mg/dL Magnesium 0.9 L* (1.6-2.3) mg/dL Total Bilirubin 1.0 (0.2-1.3) mg/dL AST 103 H (17-59) U/L ALT 61 (21-72) U/L Alkaline Phosphatase 81 (38-126) U/L Total Creatine Kinase 808 H (55-170) U/L CK-MB (CK-2) 15.1 H (0.0-2.4) ng/mL CK-MB (CK-2) Rel Index 1.9 Troponin I <0.012 (0.000-0.034) ng/mL NT-Pro-B Natriuret Pep pg/mL Total Protein 7.3 (6.3-8.2) g/dL Albumin 4.1 (3.5-5.0) g/dL Amylase 51 (30-110) U/L Lipase 230 (23-300) U/L Serum Alcohol 175 mg/dL 09/11/18 09/11/18 Range/Units 09:10 09:10 WBC (3.8-10.6) k/uL RBC (4.30-5.90) m/uL Hgb (13.0-17.5) gm/dL Hct (39.0-53.0) % MCV (80.0-100.0) fL MCH (25.0-35.0) pg MCHC (31.0-37.0) g/dL RDW (11.5-15.5) % Plt Count (150-450) k/uL Neutrophils % % Lymphocytes % % Monocytes % % Eosinophils % % Basophils % % Neutrophils # (1.3-7.7) k/uL Lymphocytes # (1.0-4.8) k/uL Monocytes # (0-1.0) k/uL Eosinophils # (0-0.7) k/uL Basophils # (0-0.2) k/uL PT 10.6 (9.0-12.0) sec INR 1.1 (<1.2) APTT 29.8 (22.0-30.0) sec Sodium (137-145) mmol/L Potassium (3.5-5.1) mmol/L Chloride (98-107) mmol/L Carbon Dioxide (22-30) mmol/L Anion Gap mmol/L BUN (9-20) mg/dL Creatinine (0.66-1.25) mg/dL Est GFR (CKD-EPI)AfAm (>60 ml/min/1.73 sqM) Est GFR (CKD-EPI)NonAf (>60 ml/min/1.73 sqM) Glucose (74-99) mg/dL Calcium (8.4-10.2) mg/dL Magnesium (1.6-2.3) mg/dL Total Bilirubin (0.2-1.3) mg/dL AST (17-59) U/L ALT (21-72) U/L Alkaline Phosphatase (38-126) U/L Total Creatine Kinase (55-170) U/L CK-MB (CK-2) (0.0-2.4) ng/mL CK-MB (CK-2) Rel Index Troponin I (0.000-0.034) ng/mL NT-Pro-B Natriuret Pep 365 pg/mL Total Protein (6.3-8.2) g/dL Albumin (3.5-5.0) g/dL Amylase (30-110) U/L Lipase (23-300) U/L Serum Alcohol mg/dL 09/11/18 09:12 EKG shows R sinus rhythm normal EKG noted. Ventricular rate of 97 bpm. PA interval is 106 most seconds. QRS ration 106 most seconds. QT QTc is 370/469 ms. - Radiology Data Radiology results: report reviewed S x-ray shows residual airspace opacity in the lateral right middle lobe. Loculated North or exudates seems to have resolved. Pleural based thickening. Possible scarring. Continued recommended Disposition Clinical Impression: COPD (chronic obstructive pulmonary disease), Hypomagnesemia, Anxiety, ETOH abuse Disposition: HOME SELF-CARE Condition: Good Instructions: COPD (Chronic Obstructive Pulmonary Disease) (ED) Additional Instructions: Patient has follow-up with primary care physician. Return to emergency department if any alarming signs or symptoms occur. Prescriptions: chlordiazePOXIDE HCl [Librium] 25 mg PO QID 3 Days #12 capsule Magnesium Oxide [Mag-Ox] 400 mg PO DAILY #7 tablet predniSONE 10 mg PO DAILY #15 tab Is patient prescribed a controlled substance at d/c from ED?: No Referrals: None,Stated [Primary Care Provider] - 1-2 days Time of Disposition: 12:27
--- NOTE | 2018-09-11 09:38 | XR ---
EXAMINATION TYPE: XR chest 2V DATE OF EXAM: 09/11/2018 COMPARISON: 06/20/2018 HISTORY: 52 year-old male shortness of breath, difficulty breathing TECHNIQUE: AP and lateral views FINDINGS: Heart normal size. Aorta within normal limits. Diffuse interstitial prominence. Continued opacificati on in the lateral right middle lobe. Chronic ununited rib fracture deformities on the left. No new co nsolidation or pleural effusion. At the site of previous pleural-based air at the right costophrenic angle, there is now some mild pleural-based thickening. IMPRESSION: Residual airspace opacity in the lateral right middle lobe. The loculated pneumothorax at the right b ase seems to have resolved. There is now some pleural based thickening here, possible scarring. Moe nued follow-up recommended.
[2018-09-11 09:40] LABS: Basophils % (A) 0 %; Eosinophils # (A) 0.1 k/uL (0-0.7); Eosinophils % (A) 2 %; HCT 37.7 % (39.0-53.0); HGB 12.6 gm/dL (13.0-17.5); Lymphocytes # (A) 0.9 k/uL (1.0-4.8); Lymphocytes % (A) 22 %; MCH 32.6 pg (25.0-35.0); MCHC 33.5 g/dL (31.0-37.0); MCV 97.3 fL (80.0-100.0); Mean Platelet Volume 7.4; Monocytes # (A) 0.3 k/uL (0-1.0); Monocytes % (A) 8 %; Neutrophils # (A) 2.8 k/uL (1.3-7.7); Neutrophils % (A) 67 %; Platelet Count 119 k/uL (150-450); RBC 3.88 m/uL (4.30-5.90); RDW 15.6 % (11.5-15.5); WBC 4.2 k/uL (3.8-10.6)
[2018-09-11 09:41] LABS: INR 1.1 (<1.2); Partial Thromboplastin Time 29.8 sec (22.0-30.0); Prothrombin Time 10.6 sec (9.0-12.0)
[2018-09-11 09:49] LABS: ALT 61 U/L (21-72); AST 103 U/L (17-59); Albumin 4.1 g/dL (3.5-5.0); Alkaline Phosphatase 81 U/L (38-126); Amylase 51 U/L (30-110); Anion Gap 19 mmol/L; Blood Urea Nitrogen 5 mg/dL (9-20); Calcium 8.8 mg/dL (8.4-10.2); Carbon Dioxide 21 mmol/L (22-30); Chloride 87 mmol/L (98-107); Glucose 99 mg/dL (74-99); Lipase 230 U/L (23-300); Potassium 3.9 mmol/L (3.5-5.1); Sodium 127 mmol/L (137-145); Total Protein 7.3 g/dL (6.3-8.2)
[2018-09-11 10:09] LABS: Magnesium 0.9 mg/dL (1.6-2.3)
[2018-09-11 10:11] LABS: Alcohol 175 mg/dL; Creatine Kinase 808 U/L (55-170)
[2018-09-11 10:24] LABS: Creatine Kinase MB 15.1 ng/mL (0.0-2.4); Troponin I <0.012 ng/mL (0.000-0.034)
[2018-09-11] MEDS ORDERED: MAGNESIUM OXIDE 400 MG TAB PO STA (11:03)
[2018-09-11] MEDS: MAGNESIUM SULFATE-D5W PMX 1 GM in DEXTROSE/WATER 1 100ML.BAG IVPB SCH ×3 (12:43→15:19)
[2018-09-11] MEDS ORDERED: SODIUM CHLORIDE 0.9% 1,000 ML IV ONE (15:21)
[2018-09-11] MEDS ORDERED: IPRATROPIUM-ALBUTEROL 3 ML NEB INHALATION STA (15:39)
[2018-09-11 15:52] VITALS: PULSE 106
[2018-09-11] MEDS ORDERED: chlordiazePOXIDE 25 MG CAP PO STA (16:31)
[2018-09-11 17:22] VITALS: BP 155/97; RESP 19
[2018-09-11 17:23] VITALS: TEMP 98.8
== END 2018-09-11 17:34 | disposition home or self-care (01) ==
LOC: EC 08:50
DX: J44.9 Chronic obstructive pulmonary disease, unspecified (principal); E83.42 Hypomagnesemia; F41.9 Anxiety disorder, unspecified; F10.10 Alcohol abuse, uncomplicated; I25.10 Atherosclerotic heart disease of native coronary artery without angina pectoris; F32.9 Major depressive disorder, single episode, unspecified; K21.9 Gastro-esophageal reflux disease without esophagitis; F17.200 Nicotine dependence, unspecified, uncomplicated; Z79.899 Other long term (current) drug therapy
CPT/HCPCS: 36415; 94640; 93005; 83880; 80053; 82150; 82550; 82553; 83690; 83735; 84484; 85025; 85610; 85730; 71046; 99285; 96365; 96366 ×2; 96375; 96376; 96361; G0480; J2060; J3475; 80320

== ENCOUNTER 2019-03-24 11:06 | Inpatient (IN) | payer OTHER ==
[2019-03-24] MEDS ORDERED: SODIUM CHLORIDE 0.9% 1,000 ML IV STA (11:42)
[2019-03-24] MEDS ORDERED: IPRATROPIUM 0.5 MG/2.5 ML NEBU INHALATION STA (11:46)
[2019-03-24] MEDS ORDERED: ALBUTEROL NEBULIZED (CONC) 5 MG, SODIUM CHLORIDE 0.9% NEBULIZ 3 ML INHALATION STA ×2 (11:46)
--- NOTE | 2019-03-24 11:49 | ED ---
General Adult HPI - General Chief complaint: Arrhythmia/Palpitations Stated complaint: palpitations, ETOH Time Seen by Provider: 03/24/19 11:10 Source: patient, RN notes reviewed Mode of arrival: wheelchair Limitations: no limitations - History of Present Illness Initial comments: This is a 53-year-old male who presents emergency Department stating that he is an alcoholic. Patient states she is post E had today but his insurance wouldn't allow him to go see comes in the emergency department because he is complaining of occasional palpitations which been ongoing for quite a while. Patient states he also is here to see if he can be detoxed hospital. Patient states she's chronically short of breath and he continues to be short of breath today. Patient states he is a smoker and which he continues to do today as well. Patient denies any chest pain. Patient denies any recent fever chills. Patient denies any headache patient denies numbness weakness. Patient denies lightheadedness or dizziness. - Related Data Home Medications Medication Instructions Recorded Confirmed Omeprazole 20 mg PO DAILY 06/05/18 03/24/19 Albuterol Inhaler [Ventolin Hfa 1 - 2 puff INHALATION RT-Q6H PRN 09/11/18 03/24/19 Inhaler] Acetaminophen Tab [Tylenol Tab] 650 mg PO Q4H PRN 03/24/19 03/24/19 Allergies Allergy/AdvReac Type Severity Reaction Status Date / Time No Known Allergies Allergy Verified 03/24/19 11:28 Review of Systems ROS Statement: Those systems with pertinent positive or pertinent negative responses have been documented in the HPI. ROS Other: All systems not noted in ROS Statement are negative. Past Medical History Past Medical History: COPD, GERD/Reflux, Seizure Disorder, Syncope Additional Past Medical History / Comment(s): Severe ETOH abuse, alcohol withdrawal seizures/DTs, encephalopathy d/t alcohol, falls, thrombocytopenia, mastoiditis with surgery. History of Any Multi-Drug Resistant Organisms: None Reported Past Surgical History: Ear Surgery, Tonsillectomy Additional Past Surgical History / Comment(s): Bilateral mastoidectomies, sinus surgery and vocal cord scraping. Past Anesthesia/Blood Transfusion Reactions: No Reported Reaction Past Psychological History: Anxiety, Bipolar, Depression Smoking Status: Current every day smoker Past Alcohol Use History: Daily, Heavy Past Drug Use History: None Reported - Past Family History Father Family Medical History: Cancer Additional Family Medical History / Comment(s): Father was a stomach cancer survivor. He of spinal stenosis at the age of 88yrs. Mother Family Medical History: Hyperlipidemia Additional Family Medical History / Comment(s): Mother is living and is 85 yrs old. Brother(s) Additional Family Medical History / Comment(s): Bipolar, schizoprenia General Exam - General Exam Comments Initial Comments: GENERAL: Patient is well-developed and well-nourished. Patient is nontoxic and well- hydrated and is in mild distress. ENT: Neck is soft and supple. No significant lymphadenopathy is noted. Oropharynx i s clear. Moist mucous membranes. Neck has full range of motion without eliciting any pain. EYES: The sclera were anicteric and conjunctiva were pink and moist. Extraocular movements were intact and pupils were equal round and reactive to light. Eyelids were unremarkable. PULMONARY: Unlabored respirations. Good breath sounds bilaterally. No audible rales rhonchi or wheezing was noted. CARDIOVASCULAR: There is a regular rate and rhythm without any murmurs gallops or rubs. ABDOMEN: Soft and nontender with normal bowel sounds. SKIN: Skin is clear with no lesions or rashes and otherwise unremarkable. NEUROLOGIC: Patient is alert and oriented x3. Cranial nerves II through XII are grossly intact. Motor and sensory are also intact. Normal speech, volume and content. Symmetrical smile. MUSCULOSKELETAL: Normal extremities with adequate strength and full range of motion. No lower extremity swelling or edema. No calf tenderness. LYMPHATICS: No significant lymphadenopathy is noted PSYCHIATRIC: Normal psychiatric evaluation. Limitations: no limitations Course Vital Signs 03/24/19 03/24/19 03/24/19 11:10 11:30 11:41 Temperature 97.9 F Pulse Rate 104 H 74 Respiratory 18 16 20 Rate Blood Pressure 120/80 124/75 O2 Sat by Pulse 95 96 Oximetry 03/24/19 03/24/19 03/24/19 12:00 12:30 12:48 Temperature Pulse Rate 66 60 67 Respiratory 16 16 Rate Blood Pressure 118/78 105/60 O2 Sat by Pulse 96 99 Oximetry 03/24/19 12:56 Temperature Pulse Rate 59 L Respiratory Rate Blood Pressure O2 Sat by Pulse Oximetry Medical Decision Making - Medical Decision Making EKG shows normal sinus rhythm at 66 bpm RI interval 168 QRS is under 12 QT interval 400 QTC is 419 per patient's EKG shows no ST segment elevation or depression or T wave abnormalities are noted. Chest x-ray shows no acute abnormality. - Lab Data Result diagrams: 03/24/19 11:56 03/24/19 11:56 Lab Results 03/24/19 03/24/19 03/24/19 Range/Units 11:56 11:56 11:56 WBC 5.2 (3.8-10.6) k/uL RBC 3.69 L (4.30-5.90) m/uL Hgb 12.5 L (13.0-17.5) gm/dL Hct 36.6 L (39.0-53.0) % MCV 99.2 (80.0-100.0) fL MCH 33.9 (25.0-35.0) pg MCHC 34.2 (31.0-37.0) g/dL RDW 14.1 (11.5-15.5) % Plt Count 113 L (150-450) k/uL Neutrophils % 53 % Lymphocytes % 32 % Monocytes % 9 % Eosinophils % 1 % Basophils % 1 % Neutrophils # 2.8 (1.3-7.7) k/uL Lymphocytes # 1.7 (1.0-4.8) k/uL Monocytes # 0.4 (0-1.0) k/uL Eosinophils # 0.1 (0-0.7) k/uL Basophils # 0.1 (0-0.2) k/uL PT 10.4 (9.0-12.0) sec INR 1.0 (<1.2) APTT 29.3 (22.0-30.0) sec Sodium 134 L (137-145) mmol/L Potassium 4.1 (3.5-5.1) mmol/L Chloride 97 L (98-107) mmol/L Carbon Dioxide 24 (22-30) mmol/L Anion Gap 13 mmol/L BUN 9 (9-20) mg/dL Creatinine 0.79 (0.66-1.25) mg/dL Est GFR (CKD-EPI)AfAm >90 (>60 ml/min/1.73 sqM) Est GFR (CKD-EPI)NonAf >90 (>60 ml/min/1.73 sqM) Glucose 126 H (74-99) mg/dL Calcium 9.0 (8.4-10.2) mg/dL Magnesium 1.1 L (1.6-2.3) mg/dL Total Bilirubin 0.6 (0.2-1.3) mg/dL AST 128 H (17-59) U/L ALT 69 (21-72) U/L Alkaline Phosphatase 98 (38-126) U/L Troponin I (0.000-0.034) ng/mL Total Protein 7.9 (6.3-8.2) g/dL Albumin 4.9 (3.5-5.0) g/dL TSH 0.829 (0.465-4.680) mIU/L Serum Alcohol 404 H* mg/dL 03/24/19 Range/Units 11:56 WBC (3.8-10.6) k/uL RBC (4.30-5.90) m/uL Hgb (13.0-17.5) gm/dL Hct (39.0-53.0) % MCV (80.0-100.0) fL MCH (25.0-35.0) pg MCHC (31.0-37.0) g/dL RDW (11.5-15.5) % Plt Count (150-450) k/uL Neutrophils % % Lymphocytes % % Monocytes % % Eosinophils % % Basophils % % Neutrophils # (1.3-7.7) k/uL Lymphocytes # (1.0-4.8) k/uL Monocytes # (0-1.0) k/uL Eosinophils # (0-0.7) k/uL Basophils # (0-0.2) k/uL PT (9.0-12.0) sec INR (<1.2) APTT (22.0-30.0) sec Sodium (137-145) mmol/L Potassium (3.5-5.1) mmol/L Chloride (98-107) mmol/L Carbon Dioxide (22-30) mmol/L Anion Gap mmol/L BUN (9-20) mg/dL Creatinine (0.66-1.25) mg/dL Est GFR (CKD-EPI)AfAm (>60 ml/min/1.73 sqM) Est GFR (CKD-EPI)NonAf (>60 ml/min/1.73 sqM) Glucose (74-99) mg/dL Calcium (8.4-10.2) mg/dL Magnesium (1.6-2.3) mg/dL Total Bilirubin (0.2-1.3) mg/dL AST (17-59) U/L ALT (21-72) U/L Alkaline Phosphatase (38-126) U/L Troponin I <0.012 (0.000-0.034) ng/mL Total Protein (6.3-8.2) g/dL Albumin (3.5-5.0) g/dL TSH (0.465-4.680) mIU/L Serum Alcohol mg/dL Disposition Clinical Impression: Palpitations, Alcohol intoxication Disposition: ADMITTED IP TO THIS HOSP Referrals: Scotty Arevalo MD [Primary Care Provider] - 1-2 days Time of Disposition: 13:40
[2019-03-24 12:28] LABS: Basophils # (A) 0.1 k/uL (0-0.2); Basophils % (A) 1 %; Eosinophils # (A) 0.1 k/uL (0-0.7); Eosinophils % (A) 1 %; HCT 36.6 % (39.0-53.0); HGB 12.5 gm/dL (13.0-17.5); Lymphocytes # (A) 1.7 k/uL (1.0-4.8); Lymphocytes % (A) 32 %; MCH 33.9 pg (25.0-35.0); MCHC 34.2 g/dL (31.0-37.0); MCV 99.2 fL (80.0-100.0); Mean Platelet Volume 7.5; Monocytes # (A) 0.4 k/uL (0-1.0); Monocytes % (A) 9 %; Neutrophils # (A) 2.8 k/uL (1.3-7.7); Neutrophils % (A) 53 %; Platelet Count 113 k/uL (150-450); RBC 3.69 m/uL (4.30-5.90); RDW 14.1 % (11.5-15.5); WBC 5.2 k/uL (3.8-10.6)
--- NOTE | 2019-03-24 12:36 | XR ---
EXAMINATION TYPE: XR chest 2V DATE OF EXAM: 03/24/2019 COMPARISON: 09/11/2018 TECHNIQUE: PA and lateral views submitted. HISTORY: Dysrhythmia FINDINGS: The lungs are clear and there is no pneumothorax, pleural effusion, or focal pneumonia. Stable senior qa tester erin displaced rib fractures are seen. Hyperinflation suggests COPD. Heart size stable. Arthropathy of the shoulders. Degenerative change of the spine. IMPRESSION: 1. No acute process. Correlate for COPD.
[2019-03-24 12:39] LABS: Partial Thromboplastin Time 29.3 sec (22.0-30.0); Prothrombin Time 10.4 sec (9.0-12.0)
[2019-03-24 12:45] LABS: ALT 69 U/L (21-72); AST 128 U/L (17-59); Albumin 4.9 g/dL (3.5-5.0); Alkaline Phosphatase 98 U/L (38-126); Anion Gap 13 mmol/L; Blood Urea Nitrogen 9 mg/dL (9-20); Carbon Dioxide 24 mmol/L (22-30); Chloride 97 mmol/L (98-107); Glucose 126 mg/dL (74-99); Magnesium 1.1 mg/dL (1.6-2.3); Potassium 4.1 mmol/L (3.5-5.1); Sodium 134 mmol/L (137-145); Total Bilirubin 0.6 mg/dL (0.2-1.3); Total Protein 7.9 g/dL (6.3-8.2)
[2019-03-24 12:58] LABS: Alcohol 404 mg/dL
[2019-03-24] MEDS ORDERED: SODIUM CHLORIDE 0.9% 1,000 ML IV ONE (13:44)
[2019-03-24] MEDS ORDERED: THIAMINE 100 MG/ML 2 ML VIAL IM STA (13:45)
[2019-03-24] MEDS: THIAMINE 100 MG TAB PO SCH (17:43)
[2019-03-24] MEDS: NICOTINE 21MG/24HR PATCH TRANSDERM SCH (17:43)
[2019-03-24] MEDS: PANTOPRAZOLE 40 MG TABLET PO SCH (17:43)
[2019-03-24] MEDS: ONDANSETRON 4 MG/2 ML VIAL IVP PRN ×2 (17:52→23:40)
[2019-03-24] MEDS: LORazepam 2 MG/ML INJ IV PRN ×2 (17:52→23:41)
[2019-03-25] MEDS: LORazepam 2 MG/ML INJ IV PRN ×10 (04:40→22:49)
[2019-03-25] MEDS: ONDANSETRON 4 MG/2 ML VIAL IVP PRN ×2 (06:16→22:49)
[2019-03-25] MEDS: PANTOPRAZOLE 40 MG TABLET PO SCH (10:00)
[2019-03-25] MEDS: NICOTINE 21MG/24HR PATCH TRANSDERM SCH (10:00)
[2019-03-25] MEDS: ACETAMINOPHEN TAB 325 MG TAB PO PRN ×3 (11:20→22:49)
[2019-03-25] MEDS: THIAMINE 100 MG TAB PO SCH ×2 (11:20→17:49)
[2019-03-25] MEDS: IPRATROPIUM-ALBUTEROL 3 ML NEB INHALATION PRN ×3 (11:51→19:53)
--- NOTE | 2019-03-25 17:58 | PN ---
PROGRESS NOTE DATE OF SERVICE: 03/25/2019 CHIEF COMPLAINT: Acute alcohol intoxication, COPD and DTs. HISTORY OF PRESENT ILLNESS: This gentleman is going into DTs. He is tremulous and agitated. He is having increasing shortness of breath, and he will be started on updrafts. PHYSICAL EXAMINATION: He has tight wheezing on inspiration and expiration with scattered rales. Cardiac exam demonstrates sinus tachycardia and he is tremulous. IMPRESSION: 1. Delirium tremens. 2. Acute alcohol intoxication. 3. Chronic alcoholism. 4. Exacerbation of chronic obstructive pulmonary disease. PLAN: Start updrafts and cancel expected discharge. MMODL / IJN: [id number] /
--- NOTE | 2019-03-25 17:58 | HP ---
HISTORY AND PHYSICAL CHIEF COMPLAINT: Difficulty breathing and acute alcohol intoxication. HISTORY OF PRESENT ILLNESS: This is another admission for this 53-year-old white male with a history of chronic alcoholism and COPD. He presented to the emergency room extremely short of breath, and his blood alcohol was significantly elevated. He was tremulous. REVIEW OF SYSTEMS: He denies any blackouts, seizures, difficulty with the vision or the hearing, chest pain, cough, hemoptysis, abdominal pain, nausea, vomiting, hematemesis, melena, hematochezia, jaundice, renal failure, diabetes, etc. Past medical history, family history, and personal and social histories are all otherwise unchanged from the past. He is NOT ALLERGIC TO ANY MEDICATION. He uses a Ventolin inhaler and updrafts for his COPD. PHYSICAL EXAMINATION: Blood pressure is 130/95 with a pulse of 95, respirations of 44. He is afebrile. In general he appeared to be somewhat disheveled and intoxicated. Skin was dry. Lymph nodes were not enlarged. Head, ears, eyes, nose, mouth and throat were normal. Neck veins were not distended. Chest demonstrated increased A/P diameter with poor breath sounds throughout with inspiratory and expiratory wheezing, rales and rhonchi. Cardiac exam demonstrated sinus tachycardia. ABDOMEN: Soft, nontender. No visceromegaly or masses. Extremities were normal. Neurologically he was slightly tremulous. He was admitted to the hospital with the diagnoses: 1. Exacerbation of chronic obstructive pulmonary disease. 2. Acute alcohol intoxication. 3. Alcoholism. 4. Pending delirium tremens. PLAN: 1. Bed rest. 2. IV fluids. 3. Updrafts. 4. CIWA protocol. MMODL / IJN: [id number] /
[2019-03-25] MEDS ORDERED: Magnesium Replacement Protocol 1 EACH MISC MISCELLANE PRN (19:25)
[2019-03-25] MEDS: MAGNESIUM SULFATE-D5W PMX 1 GM in DEXTROSE/WATER 1 100ML.BAG IVPB SCH ×2 (21:57→22:52)
[2019-03-26] MEDS: MAGNESIUM SULFATE-D5W PMX 1 GM in DEXTROSE/WATER 1 100ML.BAG IVPB SCH ×3 (01:01→10:44)
[2019-03-26] MEDS: LORazepam 2 MG/ML INJ IV PRN ×9 (01:15→23:46)
[2019-03-26] MEDS: IPRATROPIUM-ALBUTEROL 3 ML NEB INHALATION PRN ×3 (06:56→16:38)
[2019-03-26] MEDS ORDERED: Magnesium Replacement Protocol 1 EACH MISC MISCELLANE PRN (08:27)
[2019-03-26] MEDS: PANTOPRAZOLE 40 MG TABLET PO SCH (09:15)
[2019-03-26] MEDS: NICOTINE 21MG/24HR PATCH TRANSDERM SCH (09:15)
[2019-03-26] MEDS: ACETAMINOPHEN TAB 325 MG TAB PO PRN ×3 (09:27→19:56)
[2019-03-26] MEDS: THIAMINE 100 MG TAB PO SCH ×2 (11:34→17:06)
[2019-03-26 11:52] LABS: Basophils % (A) 0 %; Eosinophils # (A) 0.1 k/uL (0-0.7); Eosinophils % (A) 1 %; HCT 37.8 % (39.0-53.0); HGB 12.4 gm/dL (13.0-17.5); Lymphocytes # (A) 1.4 k/uL (1.0-4.8); Lymphocytes % (A) 18 %; MCH 33.8 pg (25.0-35.0); MCHC 32.8 g/dL (31.0-37.0); MCV 103.2 fL (80.0-100.0); Macrocytosis Slight; Mean Platelet Volume 9.3; Monocytes # (A) 0.6 k/uL (0-1.0); Monocytes % (A) 7 %; Neutrophils # (A) 5.7 k/uL (1.3-7.7); Neutrophils % (A) 73 %; RBC 3.66 m/uL (4.30-5.90); RDW 13.5 % (11.5-15.5); WBC 7.9 k/uL (3.8-10.6)
[2019-03-26 11:53] LABS: Platelet Count 96 k/uL (150-450)
[2019-03-26 11:58] LABS: ALT 58 U/L (21-72); AST 90 U/L (17-59); Albumin 4.8 g/dL (3.5-5.0); Alkaline Phosphatase 92 U/L (38-126); Anion Gap 11 mmol/L; Blood Urea Nitrogen 9 mg/dL (9-20); Calcium 9.3 mg/dL (8.4-10.2); Carbon Dioxide 26 mmol/L (22-30); Chloride 99 mmol/L (98-107); Glucose 102 mg/dL (74-99); Potassium 3.7 mmol/L (3.5-5.1); Sodium 136 mmol/L (137-145); Total Bilirubin 1.4 mg/dL (0.2-1.3); Total Protein 8.2 g/dL (6.3-8.2)
--- NOTE | 2019-03-26 16:39 | PN ---
PROGRESS NOTE CHIEF COMPLAINT: Acute alcohol intoxication, DTs and COPD. HISTORY OF PRESENT ILLNESS: This gentleman is a little bit more tremulous than yesterday. Breathing has improved slightly. PHYSICAL EXAMINATION: He still has decreased breath sounds throughout with expiratory and inspiratory wheezing and scattered rales. Cardiac exam demonstrates tachycardia. Abdomen is soft. He does have tremors of both hands, but no diplopia. IMPRESSION: 1. Delirium tremens. 2. Exacerbation of chronic obstructive pulmonary disease. PLAN: Hold another day and discharge tomorrow if DTs have passed. MMODL / IJN: [id number] /
[2019-03-27] MEDS: LORazepam 2 MG/ML INJ IV PRN ×7 (02:14→19:02)
[2019-03-27] MEDS: PANTOPRAZOLE 40 MG TABLET PO SCH (08:25)
[2019-03-27] MEDS: NICOTINE 21MG/24HR PATCH TRANSDERM SCH (08:25)
[2019-03-27] MEDS: THIAMINE 100 MG TAB PO SCH ×2 (11:51→16:46)
--- NOTE | 2019-03-27 15:22 | PN ---
PROGRESS NOTE CHIEF COMPLAINT: DTs. HISTORY OF PRESENT ILLNESS: This gentleman was found on the floor with DTs. He is very agitated and confused and tremulous and a sitter is now bedside. PHYSICAL EXAM: He has a sinus tachycardia and he is very agitated. He is trembling. He has no strabismus. IMPRESSION: Delirium tremens. PLAN: 1. Make full admit. 2. Continue 24 hour observation and 24 hour support with bedside sitter. ANGELICA / MARTÍNN: [id number] /
[2019-03-28] MEDS: LORazepam 2 MG/ML INJ IV PRN ×5 (01:11→20:45)
[2019-03-28] MEDS: PANTOPRAZOLE 40 MG TABLET PO SCH (09:02)
[2019-03-28] MEDS: NICOTINE 21MG/24HR PATCH TRANSDERM SCH (09:03)
[2019-03-28] MEDS: ACETAMINOPHEN TAB 325 MG TAB PO PRN ×3 (09:12→20:45)
[2019-03-28] MEDS: IPRATROPIUM-ALBUTEROL 3 ML NEB INHALATION PRN (11:41)
[2019-03-28] MEDS: THIAMINE 100 MG TAB PO SCH ×2 (15:01→20:41)
--- NOTE | 2019-03-28 18:00 | PN ---
PROGRESS NOTE CHIEF COMPLAINT: DTs. HISTORY OF PRESENT ILLNESS: This gentleman started to come out of the DTs, but he is a little bit less tremulous, but still not in control. Magnesium was also low and this will be corrected. PHYSICAL EXAM: He is still somewhat tremulous. Chest demonstrates poor breath sounds with wheezing on inspiration and expiration and he has tachycardia. IMPRESSION: 1. Delirium tremens. 2. Chronic obstructive pulmonary disease. 3. Hypomagnesemia. PLAN: Replace magnesium and possibly home in the next day or 2. MMODL / IJN: [id number] /
[2019-03-28] MEDS: MAGNESIUM OXIDE 400 MG TAB PO SCH (20:41)
[2019-03-29] MEDS: LORazepam 2 MG/ML INJ IV PRN ×4 (00:48→20:52)
[2019-03-29] MEDS: MAGNESIUM OXIDE 400 MG TAB PO SCH ×2 (07:07→20:52)
[2019-03-29] MEDS: PANTOPRAZOLE 40 MG TABLET PO SCH (07:07)
[2019-03-29] MEDS: NICOTINE 21MG/24HR PATCH TRANSDERM SCH (07:07)
[2019-03-29] MEDS: IPRATROPIUM-ALBUTEROL 3 ML NEB INHALATION PRN (08:02)
[2019-03-29 09:53] LABS: Glucose,Whole Blood 133 mg/dL (75-99)
[2019-03-29] MEDS: THIAMINE 100 MG TAB PO SCH ×2 (12:41→16:50)
[2019-03-29] MEDS: ACETAMINOPHEN TAB 325 MG TAB PO PRN ×2 (13:38→20:51)
[2019-03-29 20:55] VITALS: RESP 18
[2019-03-30 05:16] VITALS: BP 118/78; PULSE 80; TEMP 99.1
[2019-03-30] MEDS: PANTOPRAZOLE 40 MG TABLET PO SCH (07:41)
[2019-03-30] MEDS: NICOTINE 21MG/24HR PATCH TRANSDERM SCH (07:41)
[2019-03-30] MEDS: MAGNESIUM OXIDE 400 MG TAB PO SCH (07:41)
[2019-03-30] MEDS: LORazepam 2 MG/ML INJ IV PRN (08:54)
[2019-03-30] MEDS: ACETAMINOPHEN TAB 325 MG TAB PO PRN (08:54)
--- NOTE | 2019-04-01 04:11 | PN ---
PROGRESS NOTE DATE OF SERVICE: 03/29/2019 CHIEF COMPLAINT: DTs. HISTORY OF PRESENT ILLNESS: This gentleman is still tremulous and unsteady. When getting up to the bathroom, he recently collapsed without injury. He feels fine at this time. Has no complaints. PHYSICAL EXAM: Chest is somewhat wheezy and cardiac exam is normal. Abdomen is soft. Neurologically seems to be intact, but he is still weak. IMPRESSION: 1. DTs. 2. Chronic obstructive pulmonary disease. 3. Alcoholism. PLAN: Hold discharge for another day and dictation. MMODL / IJN: [id number] /
--- NOTE | 2019-04-01 08:25 | DS ---
DISCHARGE SUMMARY CHIEF COMPLAINT: Alcoholism and DTs with difficulty breathing. HISTORY OF PRESENT ILLNESS AND PHYSICAL EXAM: Details of this man's history and physical can be found in the initial workup. LABORATORY STUDIES: While he was in the hospital he had laboratory studies, details of which can be found in the laboratory section of his chart. COURSE IN HOSPITAL: After admission he was placed on bedrest and started on intravenous fluids and the CIWA protocol. He was also placed on updrafts. His symptoms of COPD started to slowly resolve, but then he went into DTs. He was treated for several days and monitored with a bedside sitter until he became more awake and alert. He was doing well enough. It was felt he could be safely sent home on the and he will follow up in the office. He will go home on his usual medication and diet. FINAL DIAGNOSES: 1. Acute alcohol intoxication. 2. Chronic alcoholism. 3. Delirium tremens. 4. Chronic obstructive pulmonary disease, exacerbation. OPERATIONS: None. CONSULTATION: None. He is improved. MMCHANA / MARTÍNN: [id number] /
== END 2019-03-30 10:40 | disposition home or self-care (01) | DRG 191 ==
LOC: EC 11:06 → 1SOBS 13:44 → OBSVTOIN 03-26 07:05 → 3NMEDONC 03-27 22:55
PROVIDERS: ADMIT Family Medicine; ATTEND Family Medicine
DX: J44.1 Chronic obstructive pulmonary disease with (acute) exacerbation (principal); F10.231 Alcohol dependence with withdrawal delirium; E83.42 Hypomagnesemia; F10.229 Alcohol dependence with intoxication, unspecified; Y90.8 Blood alcohol level of 240 mg/100 ml or more; F17.210 Nicotine dependence, cigarettes, uncomplicated; F31.9 Bipolar disorder, unspecified; G40.909 Epilepsy, unspecified, not intractable, without status epilepticus; K21.9 Gastro-esophageal reflux disease without esophagitis; Z80.0 Family history of malignant neoplasm of digestive organs
CPT/HCPCS: 36415; 71046; 80053; 80320; 83735; 84443; 84484; 85025; 85610; 85730; 93005; 94640; 94760; 96360; 96361; 96372; 99285

== ENCOUNTER 2019-04-23 21:01 | Emergency (ER) | payer OTHER ==
[2019-04-23 21:12] VITALS: RESP 18
[2019-04-23] MEDS ORDERED: DIAZEPAM 5 MG/ML 2 ML INJ IVP STA (21:22)
[2019-04-23] MEDS ORDERED: SODIUM CHLORIDE 0.9% 500 ML 500 ML IV STA (21:22)
[2019-04-23] MEDS ORDERED: ONDANSETRON 4 MG/2 ML VIAL IVP STA (21:22)
[2019-04-23] MEDS ORDERED: SODIUM CHLORIDE 0.9% 1,000 ML IV STA ×2 (21:22)
[2019-04-23] MEDS ORDERED: FAMOTIDINE 20 MG/2 ML VIAL IV STA (21:22)
[2019-04-23] MEDS ORDERED: diphenhydrAMINE 50 MG/ML 1 ML VIAL IVP STA (21:22)
[2019-04-23 22:05] LABS: Basophils % (A) 0 %; Eosinophils # (A) 0.1 k/uL (0-0.7); Eosinophils % (A) 3 %; HCT 34.5 % (39.0-53.0); HGB 11.4 gm/dL (13.0-17.5); Lymphocytes # (A) 1.2 k/uL (1.0-4.8); Lymphocytes % (A) 22 %; MCH 32.9 pg (25.0-35.0); MCV 99.8 fL (80.0-100.0); Mean Platelet Volume 7.6; Monocytes # (A) 0.8 k/uL (0-1.0); Monocytes % (A) 14 %; Neutrophils # (A) 3.1 k/uL (1.3-7.7); Neutrophils % (A) 58 %; RBC 3.46 m/uL (4.30-5.90); RDW 13.7 % (11.5-15.5); WBC 5.4 k/uL (3.8-10.6)
[2019-04-23 22:09] LABS: Platelet Count 203 k/uL (150-450)
[2019-04-23 22:17] LABS: Partial Thromboplastin Time 28.8 sec (22.0-30.0); Prothrombin Time 10.5 sec (9.0-12.0)
[2019-04-23 22:19] LABS: ALT 70 U/L (21-72); AST 54 U/L (17-59); Albumin 4.6 g/dL (3.5-5.0); Alkaline Phosphatase 58 U/L (38-126); Amylase 80 U/L (30-110); Anion Gap 10 mmol/L; Blood Urea Nitrogen 22 mg/dL (9-20); Calcium 9.7 mg/dL (8.4-10.2); Carbon Dioxide 25 mmol/L (22-30); Chloride 99 mmol/L (98-107); Creatine Kinase 192 U/L (55-170); Glucose 100 mg/dL (74-99); Lipase 442 U/L (23-300); Potassium 4.8 mmol/L (3.5-5.1); Sodium 134 mmol/L (137-145); Total Bilirubin 0.4 mg/dL (0.2-1.3); Total Protein 7.4 g/dL (6.3-8.2)
--- NOTE | 2019-04-23 23:07 | ED ---
Nausea/Vomiting/Diarrhea HPI - General Chief complaint: Nausea/Vomiting/Diarrhea Stated complaint: Dizziness Time Seen by Provider: 04/23/19 21:10 Source: patient, RN notes reviewed, old records reviewed Mode of arrival: EMS Limitations: no limitations - History of Present Illness Initial comments: This is a 53-year-old male the ER for evaluation. This patient presents today for evaluation regards to nausea vomiting tremors, weakness. Patient is coming from [facility] for evaluation. Patient is numbness and tingling throughout. States she has similar symptoms with history of alcohol withdrawal. No current alcohol use. Patient denies any headache chest pain shortness breath or abdominal pain. MD complaint: nausea, vomiting -: days(s) Associated Abdominal Pain: No Severity: mild Quality: aching Consistency: constant Improves with: none Worsens with: none Associated Symptoms: loss of appetite, nausea/vomiting, weakness - Related Data Home Medications Medication Instructions Recorded Confirmed Omeprazole 20 mg PO DAILY 06/05/18 04/23/19 Albuterol Inhaler [Ventolin Hfa 1 - 2 puff INHALATION RT-Q6H PRN 09/11/18 04/23/19 Inhaler] Allergies Allergy/AdvReac Type Severity Reaction Status Date / Time No Known Allergies Allergy Verified 04/23/19 21:50 Review of Systems ROS Statement: Those systems with pertinent positive or pertinent negative responses have been documented in the HPI. ROS Other: All systems not noted in ROS Statement are negative. Past Medical History Past Medical History: COPD, GERD/Reflux, Pneumonia, Seizure Disorder, Syncope Additional Past Medical History / Comment(s): Severe ETOH abuse, alcohol withdrawal seizures/DTs, aspiration pneumonia, encephalopathy d/t alcohol, fa lls, thrombocytopenia, mastoiditis with surgery, chronic SOB. History of Any Multi-Drug Resistant Organisms: None Reported Past Surgical History: Ear Surgery, Tonsillectomy Additional Past Surgical History / Comment(s): Bilateral mastoidectomies, sinus surgery and vocal cord scraping. Past Anesthesia/Blood Transfusion Reactions: No Reported Reaction Past Psychological History: Anxiety, Bipolar, Depression Smoking Status: Current every day smoker Past Alcohol Use History: Abuse, Daily, Heavy Past Drug Use History: None Reported - Past Family History Father Family Medical History: Cancer Additional Family Medical History / Comment(s): Father was a stomach cancer survivor. He of spinal stenosis at the age of 88yrs. Mother Family Medical History: Hyperlipidemia Additional Family Medical History / Comment(s): Mother is living and is 85 yrs old. Brother(s) Additional Family Medical History / Comment(s): Bipolar, schizoprenia General Exam Limitations: no limitations General appearance: alert, in no apparent distress, anxious Head exam: Present: atraumatic, normocephalic, normal inspection Eye exam: Present: normal appearance, PERRL, EOMI. Absent: scleral icterus, conjunctival injection, periorbital swelling ENT exam: Present: normal exam, mucous membranes moist Neck exam: Present: normal inspection. Absent: tenderness, meningismus, lymphadenopathy Respiratory exam: Present: normal lung sounds bilaterally. Absent: respiratory distress, wheezes, rales, rhonchi, stridor Cardiovascular Exam: Present: regular rate, normal rhythm, normal heart sounds. Absent: systolic murmur, diastolic murmur, rubs, gallop, clicks GI/Abdominal exam: Present: soft, normal bowel sounds. Absent: distended, tenderness, guarding, rebound, rigid Extremities exam: Present: normal inspection, full ROM, normal capillary refill. Absent: tenderness, pedal edema, joint swelling, calf tenderness Back exam: Present: normal inspection Neurological exam: Present: alert, oriented X3, CN II-XII intact Psychiatric exam: Present: normal affect, normal mood Skin exam: Present: warm, dry, intact, normal color. Absent: rash Course Vital Signs 04/23/19 21:08 Temperature 98.4 F Pulse Rate 87 Respiratory 18 Rate Blood Pressure 111/76 O2 Sat by Pulse 98 Oximetry - Reevaluation(s) Reevaluation #1: 04/23/19 23:06 Medical records reviewed Reevaluation #2: 04/23/19 23:06 Patient symptoms are now improved Medical Decision Making - Medical Decision Making 51 female the ER for evaluation. They presents for evaluation regards to nausea vomiting mild alcohol withdrawal, no DTs. Vital signs are normal and stable. Patient symptoms are resolved left lites normal patient can be discharged home - Lab Data Result diagrams: 04/23/19 21:32 04/23/19 21:32 Lab Results 04/23/19 04/23/19 04/23/19 Range/Units 21:32 21:32 21:32 WBC 5.4 (3.8-10.6) k/uL RBC 3.46 L (4.30-5.90) m/uL Hgb 11.4 L (13.0-17.5) gm/dL Hct 34.5 L (39.0-53.0) % MCV 99.8 (80.0-100.0) fL MCH 32.9 (25.0-35.0) pg MCHC 33.0 (31.0-37.0) g/dL RDW 13.7 (11.5-15.5) % Plt Count 203 D (150-450) k/uL Neutrophils % 58 % Lymphocytes % 22 % Monocytes % 14 % Eosinophils % 3 % Basophils % 0 % Neutrophils # 3.1 (1.3-7.7) k/uL Lymphocytes # 1.2 (1.0-4.8) k/uL Monocytes # 0.8 (0-1.0) k/uL Eosinophils # 0.1 (0-0.7) k/uL Basophils # 0.0 (0-0.2) k/uL PT (9.0-12.0) sec INR (<1.2) APTT (22.0-30.0) sec Sodium 134 L (137-145) mmol/L Potassium 4.8 (3.5-5.1) mmol/L Chloride 99 (98-107) mmol/L Carbon Dioxide 25 (22-30) mmol/L Anion Gap 10 mmol/L BUN 22 H (9-20) mg/dL Creatinine 0.82 (0.66-1.25) mg/dL Est GFR (CKD-EPI)AfAm >90 (>60 ml/min/1.73 sqM) Est GFR (CKD-EPI)NonAf >90 (>60 ml/min/1.73 sqM) Glucose 100 H (74-99) mg/dL Calcium 9.7 (8.4-10.2) mg/dL Total Bilirubin 0.4 (0.2-1.3) mg/dL AST 54 (17-59) U/L ALT 70 (21-72) U/L Alkaline Phosphatase 58 (38-126) U/L Ammonia 21 (<30) umol/L Creatine Kinase 192 H (55-170) U/L Total Protein 7.4 (6.3-8.2) g/dL Albumin 4.6 (3.5-5.0) g/dL Amylase 80 (30-110) U/L Lipase 442 H (23-300) U/L 04/23/19 Range/Units 21:32 WBC (3.8-10.6) k/uL RBC (4.30-5.90) m/uL Hgb (13.0-17.5) gm/dL Hct (39.0-53.0) % MCV (80.0-100.0) fL MCH (25.0-35.0) pg MCHC (31.0-37.0) g/dL RDW (11.5-15.5) % Plt Count (150-450) k/uL Neutrophils % % Lymphocytes % % Monocytes % % Eosinophils % % Basophils % % Neutrophils # (1.3-7.7) k/uL Lymphocytes # (1.0-4.8) k/uL Monocytes # (0-1.0) k/uL Eosinophils # (0-0.7) k/uL Basophils # (0-0.2) k/uL PT 10.5 (9.0-12.0) sec INR 1.0 (<1.2) APTT 28.8 (22.0-30.0) sec Sodium (137-145) mmol/L Potassium (3.5-5.1) mmol/L Chloride (98-107) mmol/L Carbon Dioxide (22-30) mmol/L Anion Gap mmol/L BUN (9-20) mg/dL Creatinine (0.66-1.25) mg/dL Est GFR (CKD-EPI)AfAm (>60 ml/min/1.73 sqM) Est GFR (CKD-EPI)NonAf (>60 ml/min/1.73 sqM) Glucose (74-99) mg/dL Calcium (8.4-10.2) mg/dL Total Bilirubin (0.2-1.3) mg/dL AST (17-59) U/L ALT (21-72) U/L Alkaline Phosphatase (38-126) U/L Ammonia (<30) umol/L Creatine Kinase (55-170) U/L Total Protein (6.3-8.2) g/dL Albumin (3.5-5.0) g/dL Amylase (30-110) U/L Lipase (23-300) U/L Disposition Clinical Impression: Dehydration, Alcohol dependence with withdrawal, Paresthesia Disposition: HOME SELF-CARE Condition: Good Instructions (If sedation given, give patient instructions): Acute Nausea and Vomiting (ED) Is patient prescribed a controlled substance at d/c from ED?: No Referrals: Scotty Arevalo MD [Primary Care Provider] - 1-2 days
[2019-04-24 00:37] VITALS: BP 100/58; PULSE 71; TEMP 98.5
== END 2019-04-24 00:20 | disposition home or self-care (01) ==
LOC: EC 21:01
DX: F10.239 Alcohol dependence with withdrawal, unspecified (principal); E86.0 Dehydration; R20.2 Paresthesia of skin; J44.9 Chronic obstructive pulmonary disease, unspecified; K21.9 Gastro-esophageal reflux disease without esophagitis; F17.200 Nicotine dependence, unspecified, uncomplicated; Z79.899 Other long term (current) drug therapy
CPT/HCPCS: 36415; 80053; 82140; 82150; 82550; 83690; 85025; 85610; 85730; 99284; 96374; 96375 ×3; 96361 ×2; J1200; J3360; J2405

== ENCOUNTER 2019-06-25 18:33 | Emergency (ER) | payer OTHER ==
[2019-06-25] MEDS ORDERED: LORazepam 2 MG/ML INJ IV PRN ×3 (20:15)
[2019-06-25] MEDS ORDERED: THIAMINE 100 MG/ML 2 ML VIAL IM STA (20:15)
[2019-06-25] MEDS ORDERED: SODIUM CHLORIDE 0.9% 1,000 ML IV ONE (20:17)
--- NOTE | 2019-06-25 20:22 | ED ---
General Adult HPI - General Source: patient, EMS, RN notes reviewed, old records reviewed Mode of arrival: EMS Limitations: no limitations <Joby Roger - Last Filed: 06/25/19 20:52> <Mukesh Gonzalez - Last Filed: 06/25/19 23:23> - General Chief complaint: Nausea/Vomiting/Diarrhea Stated complaint: NAUSEA AND VOMITING - History of Present Illness Initial comments: Chief complaint and history of present illness this is a 53-year-old male with chronic alcohol issues. States he is drinking yesterday morning through yesterday afternoon started vomiting yesterday afternoon is not available to stop. Denies alcohol today. The patient complains of abdominal discomfort. He does present with blood-streaked vomitus. (Joby Roger) - Related Data Home Medications Medication Instructions Recorded Confirmed Ibuprofen [Motrin Ib] 200 - 400 mg PO Q8H 06/25/19 06/25/19 Allergies Allergy/AdvReac Type Severity Reaction Status Date / Time No Known Allergies Allergy Verified 06/25/19 18:55 Review of Systems ROS Other: All systems not noted in ROS Statement are negative. <Joby Roger - Last Filed: 06/25/19 20:52> ROS Other: All systems not noted in ROS Statement are negative. <Mukesh Gonzalez - Last Filed: 06/25/19 23:23> ROS Statement: Those systems with pertinent positive or pertinent negative responses have been documented in the HPI. Review of systems. Patient is vomiting since last night. There is blood streaked vomit noted in the container. Patient reports he is an abuser of alcohol chronically. States he has seizures when he stops drinking. Ativan protocol has been started. Past medical problems COPD, GERD, pneumonia, seizure disorder associated with alcohol. One previous syncopal episode, and he describes it as a severe alcohol abuse and alcohol withdrawal symptoms. His surgeries include ear surgery, tonsillectomy bilateral mastoidectomies and sinus surgery. Family history significant for father had stomach cancer. He does smoke he was encouraged to stop he does drink alcohol abuse. ALLERGIES none known. (Joby Roger) Past Medical History Past Medical History: COPD, GERD/Reflux, Pneumonia, Seizure Disorder, Syncope Additional Past Medical History / Comment(s): Severe ETOH abuse, alcohol withdrawal seizures/DTs, aspiration pneumonia, encephalopathy d/t alcohol, falls, thrombocytopenia, mastoiditis with surgery, chronic SOB. History of Any Multi-Drug Resistant Organisms: None Reported Past Surgical History: Ear Surgery, Tonsillectomy Additional Past Surgical History / Comment(s): Bilateral mastoidectomies, sinus surgery and vocal cord scraping. Past Anesthesia/Blood Transfusion Reactions: No Reported Reaction Past Psychological History: Anxiety, Bipolar, Depression Smoking Status: Current every day smoker Past Alcohol Use History: Abuse, Daily, Heavy Past Drug Use History: None Reported - Past Family History Father Family Medical History: Cancer Additional Family Medical History / Comment(s): Father was a stomach cancer survivor. He of spinal stenosis at the age of 88yrs. Mother Family Medical History: Hyperlipidemia Additional Family Medical History / Comment(s): Mother is living and is 85 yrs old. Brother(s) Additional Family Medical History / Comment(s): Bipolar, schizoprenia <Joby Roger - Last Filed: 06/25/19 20:52> General Exam Limitations: no limitations <Joby Roger - Last Filed: 06/25/19 20:52> - General Exam Comments Initial Comments: General: The patient is awake and alert, appears to be in moderate distress because of frequent vomiting. Mildly diaphoretic. Blood-streaked sputum and phlegm in the bucket. Vital signs temperature 97.8 pulse 65 respiratory rate 18 pulse ox 90% room air blood pressure 149/90. Eye: Pupils are equal, round and reactive to light, extra-ocular movements are intact; there is normal conjunctiva bilaterally. No signs of icterus. Ears, nose, mouth and throat: There are moist mucous membranes and no oral lesions. Neck: The neck is supple, there is no tenderness. Cardiovascular: There is a regular rate and rhythm. No murmur, rub or gallop is appreciated. Respiratory: Lungs are clear to auscultation, respirations are non-labored, breath sounds are equal. No wheezes, stridor, rales, or rhonchi. Gastrointestinal: Active bowel sounds, tenderness with deep palpation to the epigastric region no back pain. Back: There is no tenderness to palpation in the midline. There is no obvious deformity. No rashes noted. Musculoskeletal: Normal ROM, no tenderness, There is no pedal edema. There is no calf tenderness or swelling. Sensation intact. Neurological: No neuro deficits Skin: Skin is warm and dry and no rashes or lesions are noted. Psychiatric: Cooperative, (Joby Roger) Course Vital Signs 06/25/19 06/25/19 06/25/19 18:36 19:34 20:34 Temperature 97.8 F Pulse Rate 65 74 60 Respiratory 18 18 17 Rate Blood Pressure 149/90 112/75 126/70 O2 Sat by Pulse 98 100 99 Oximetry 06/25/19 06/25/19 21:47 23:01 Temperature Pulse Rate 68 77 Respiratory 17 18 Rate Blood Pressure 154/83 147/81 O2 Sat by Pulse 97 97 Oximetry Medical Decision Making - Lab Data Result diagrams: 06/25/19 20:23 <Joby Roger - Last Filed: 06/25/19 20:52> - Lab Data Result diagrams: 06/25/19 20:23 06/25/19 20:23 <Mukesh Gonzalez - Last Filed: 06/25/19 23:23> - Medical Decision Making Medical decision making; this is a 53-year-old male with chronic alcohol issues. He reports he was drinking up until late afternoon yesterday when he started vomiting. No vomiting since then. Denies alcohol use today. He does have some blood streaked vomitus. He states he has seizures when he stops drinking. The Ativan protocol is been ordered. The patient will be hydrated, labs drawn. Patient is receiving IV Protonix. endorsed to Dr Gonzalez (oJby Roger) - Lab Data Lab Results 06/25/19 06/25/19 Range/Units 20:23 20:23 WBC 12.6 H (3.8-10.6) k/uL RBC 4.00 L (4.30-5.90) m/uL Hgb 12.6 L (13.0-17.5) gm/dL Hct 38.1 L (39.0-53.0) % MCV 95.1 (80.0-100.0) fL MCH 31.4 (25.0-35.0) pg MCHC 33.0 (31.0-37.0) g/dL RDW 15.2 (11.5-15.5) % Plt Count 159 (150-450) k/uL Neutrophils % 92 % Lymphocytes % 4 % Monocytes % 3 % Eosinophils % 1 % Basophils % 0 % Neutrophils # 11.6 H (1.3-7.7) k/uL Lymphocytes # 0.5 L (1.0-4.8) k/uL Monocytes # 0.4 (0-1.0) k/uL Eosinophils # 0.1 (0-0.7) k/uL Basophils # 0.0 (0-0.2) k/uL Sodium 129 L (137-145) mmol/L Potassium 4.0 (3.5-5.1) mmol/L Chloride 81 L (98-107) mmol/L Carbon Dioxide 26 (22-30) mmol/L Anion Gap 22 mmol/L BUN 14 (9-20) mg/dL Creatinine 0.64 L (0.66-1.25) mg/dL Est GFR (CKD-EPI)AfAm >90 (>60 ml/min/1.73 sqM) Est GFR (CKD-EPI)NonAf >90 (>60 ml/min/1.73 sqM) Glucose 116 H (74-99) mg/dL Calcium 9.9 (8.4-10.2) mg/dL Total Bilirubin 0.8 (0.2-1.3) mg/dL GGT 57 (15-73) U/L AST 82 H (17-59) U/L ALT 31 (21-72) U/L Alkaline Phosphatase 104 (38-126) U/L Total Protein 8.6 H (6.3-8.2) g/dL Albumin 4.8 (3.5-5.0) g/dL Serum Alcohol 71 mg/dL Disposition <Joby Roger - Last Filed: 06/25/19 20:52> Is patient prescribed a controlled substance at d/c from ED?: No <Mukesh Gonzalez - Last Filed: 06/25/19 23:23> Clinical Impression: Hyponatremia, Vomiting Disposition: HOME SELF-CARE Condition: Fair Instructions (If sedation given, give patient instructions): Acute Nausea and Vomiting (ED) Referrals: Scotty Arevalo MD [Primary Care Provider] - 1-2 days
[2019-06-25] MEDS ORDERED: SODIUM CHLORIDE 0.9% 1,000 ML IV SCH (20:30)
[2019-06-25 20:33] LABS: Basophils % (A) 0 %; Eosinophils # (A) 0.1 k/uL (0-0.7); Eosinophils % (A) 1 %; HCT 38.1 % (39.0-53.0); HGB 12.6 gm/dL (13.0-17.5); Lymphocytes # (A) 0.5 k/uL (1.0-4.8); Lymphocytes % (A) 4 %; MCH 31.4 pg (25.0-35.0); MCV 95.1 fL (80.0-100.0); Mean Platelet Volume 7.2; Monocytes # (A) 0.4 k/uL (0-1.0); Monocytes % (A) 3 %; Neutrophils # (A) 11.6 k/uL (1.3-7.7); Neutrophils % (A) 92 %; Platelet Count 159 k/uL (150-450); RDW 15.2 % (11.5-15.5); WBC 12.6 k/uL (3.8-10.6)
[2019-06-25] MEDS: THIAMINE 100 MG TAB PO SCH (20:33)
[2019-06-25] MEDS ORDERED: PANTOPRAZOLE 40 MG/10 ML VIAL IVP STA (20:39)
[2019-06-25 20:47] LABS: ALT 31 U/L (21-72); AST 82 U/L (17-59); African American GFR (CKD) >90 (>60 ml/min/1.73 sqM); Albumin 4.8 g/dL (3.5-5.0); Alcohol 71 mg/dL; Alkaline Phosphatase 104 U/L (38-126); Anion Gap 22 mmol/L; Blood Urea Nitrogen 14 mg/dL (9-20); Calcium 9.9 mg/dL (8.4-10.2); Carbon Dioxide 26 mmol/L (22-30); Chloride 81 mmol/L (98-107); GGT 57 U/L (15-73); Glucose 116 mg/dL (74-99); Non-African American GFR(CKD) >90 (>60 ml/min/1.73 sqM); Sodium 129 mmol/L (137-145); Total Bilirubin 0.8 mg/dL (0.2-1.3); Total Protein 8.6 g/dL (6.3-8.2)
[2019-06-25] MEDS ORDERED: PANTOPRAZOLE 40 MG/10 ML VIAL IVP SCH (21:00)
[2019-06-25 23:03] VITALS: RESP 18
[2019-06-26 00:08] LABS: Amphetamine Screen,Urine Not Detected (NotDetected); Barbiturate Screen,Urine Not Detected (NotDetected); Benzodiazepines Screen,Urine Not Detected (NotDetected); Cocaine Screen,Urine Not Detected (NotDetected); Methadone Screen, Urine Not Detected (NotDetected); Opiate Screen,Urine Not Detected (NotDetected); Oxycodone Screen, Urine Not Detected (NotDetected); Phencyclidine Screen,Urine Not Detected (NotDetected); Urn Cannabinoid Scrn Detected (NotDetected)
[2019-06-26 00:14] LABS: Tricyclic Antidepressant,Urine Not Detected (NotDetected)
[2019-06-26 00:19] VITALS: BP 144/96; PULSE 91; TEMP 98.3
== END 2019-06-26 00:25 | disposition home or self-care (01) ==
LOC: EC 18:33
DX: E87.1 Hypo-osmolality and hyponatremia (principal); R11.2 Nausea with vomiting, unspecified; R19.7 Diarrhea, unspecified; F17.200 Nicotine dependence, unspecified, uncomplicated; Z98.890 Other specified postprocedural states; Z79.1 Long term (current) use of non-steroidal anti-inflammatories (NSAID)
CPT/HCPCS: 36415; 80053; 82977; 85025; 80306; 99284; 96374; 96375; 96361 ×4; 96372; G0480; J2060; J3411; C9113; 80320

== ENCOUNTER 2019-07-19 17:47 | Emergency (ER) | payer OTHER ==
[2019-07-19 18:02] VITALS: RESP 18; TEMP 98
[2019-07-19] MEDS ORDERED: SODIUM CHLORIDE 0.9% 1,000 ML IV STA (18:11)
[2019-07-19] MEDS ORDERED: FAMOTIDINE 20 MG/2 ML VIAL IV STA (18:11)
[2019-07-19] MEDS ORDERED: SODIUM CHLORIDE 0.9% 500 ML 500 ML IV STA (18:11)
[2019-07-19] MEDS ORDERED: ONDANSETRON 4 MG/2 ML VIAL IVP STA (18:11)
[2019-07-19] MEDS ORDERED: HYDROmorphone 0.5 MG/0.5 ML SYRINGE IVP STA (18:11)
--- NOTE | 2019-07-19 18:19 | ED ---
Nausea/Vomiting/Diarrhea HPI - General Chief complaint: Nausea/Vomiting/Diarrhea Stated complaint: nausea, vomiting Time Seen by Provider: 07/19/19 18:04 Source: patient, EMS Mode of arrival: EMS Limitations: no limitations - History of Present Illness Initial comments: 53-year-old male patient with past medical history significant for alcohol abuse presents to the emergency department today for evaluation of vomiting for the last 24 hours. Patient states his last alcohol was last night. States his been vomiting since early in the day yesterday. Patient states he is having upper abdominal pain with this. Denies any hematemesis and hematochezia, melena. Denies any diarrhea or constipation. Patient is also complaining of right rib pain which she has had over the past week after experiencing a fall. Patient states that the area is very tender to touch and hurts when he takes a deep breath. Patient recently have broken his ribs. He denies any fever or chills. Denies any recent travel or sick contacts. Patient denies any recent rash, s hortness breath, chest pain, back pain, numbness, tingling, dizziness, weakness, hematuria, dysuria, urinary urgency, urinary frequency, headache, visual changes, or any other complaints. - Related Data Home Medications Medication Instructions Recorded Confirmed Ibuprofen [Motrin Ib] 200 - 400 mg PO Q8H 06/25/19 06/25/19 Previous Rx's Medication Instructions Recorded Ibuprofen [Motrin] 600 mg PO Q8HR PRN #30 tab 07/19/19 Lidocaine 5% Patch [Lidoderm] 1 patch TOPICAL DAILY #30 patch 07/19/19 Allergies Allergy/AdvReac Type Severity Reaction Status Date / Time No Known Allergies Allergy Verified 07/19/19 17:59 Review of Systems ROS Statement: Those systems with pertinent positive or pertinent negative responses have been documented in the HPI. ROS Other: All systems not noted in ROS Statement are negative. Past Medical History Past Medical History: COPD, GERD/Reflux, Pneumonia, Seizure Disorder, Syncope Additional Past Medical History / Comment(s): Severe ETOH abuse, alcohol withdrawal seizures/DTs, aspiration pneumonia, encephalopathy d/t alcohol, falls, thrombocytopenia, mastoiditis with surgery, chronic SOB. History of Any Multi-Drug Resistant Organisms: None Reported Past Surgical History: Ear Surgery, Tonsillectomy Additional Past Surgical History / Comment(s): Bilateral mastoidectomies, sinus surgery and vocal cord scraping. Past Anesthesia/Blood Transfusion Reactions: No Reported Reaction Past Psychological History: Anxiety, Bipolar, Depression Smoking Status: Current every day smoker Past Alcohol Use History: Abuse, Daily, Heavy Past Drug Use History: None Reported - Past Family History Father Family Medical History: Cancer Additional Family Medical History / Comment(s): Father was a stomach cancer survivor. He of spinal stenosis at the age of 88yrs. Mother Family Medical History: Hyperlipidemia Additional Family Medical History / Comment(s): Mother is living and is 85 yrs old. Brother(s) Additional Family Medical History / Comment(s): Bipolar, schizoprenia General Exam Limitations: no limitations General appearance: alert, in no apparent distress, other (This is a well-dev eloped, well-nourished adult male patient in no acute distress. Vital signs upon presentation are temperature 98.0F, pulse 70, respirations 18, blood pressure 129/85, pulse ox 100% on room air.) Eye exam: Present: normal appearance, PERRL, EOMI. Absent: scleral icterus, c onjunctival injection, periorbital swelling ENT exam: Present: normal exam, normal oropharynx, mucous membranes moist Respiratory exam: Present: normal lung sounds bilaterally. Absent: respiratory distress, wheezes, rales, rhonchi, stridor Cardiovascular Exam: Present: regular rate, normal rhythm, normal heart sounds. Absent: systolic murmur, diastolic murmur, rubs, gallop, clicks GI/Abdominal exam: Present: soft, tenderness (Midepigastric tenderness ), normal bowel sounds. Absent: distended, guarding, rebound, rigid Neurological exam: Present: alert, oriented X3, CN II-XII intact Psychiatric exam: Present: normal affect, normal mood Skin exam: Present: warm, dry, intact, normal color. Absent: rash Course Vital Signs 07/19/19 07/19/19 17:59 19:54 Temperature 98.0 F Pulse Rate 70 81 Respiratory 18 18 Rate Blood Pressure 129/85 147/87 O2 Sat by Pulse 100 96 Oximetry Medical Decision Making - Medical Decision Making 53-year-old male patient presents to the emergency department today for evaluation of nausea, vomiting, right rib pain. Physical examination reveals midepigastric tenderness. Patient does admit to drinking alcohol daily. Labs reviewed and are relatively unremarkable. Lipase normal. X-ray was negative. Right rib x-ray was negative. Patient be discharged home with prescription for pain medication and Lidoderm patch for rib pain. He is given prescription for Zofran for nausea. He is instructed to take his home proton pump inhibitor for treatment of gastritis. He is instructed to follow-up with his primary care physician for recheck in 1-2 days. Return parameters were discussed in detail. He verbalizes understanding and agrees with this plan. - Lab Data Result diagrams: 07/19/19 18:12 07/19/19 18:12 Lab Results 07/19/19 07/19/19 07/19/19 Range/Units 18:12 18:12 19:03 WBC 6.7 (3.8-10.6) k/uL RBC 4.05 L (4.30-5.90) m/uL Hgb 13.5 (13.0-17.5) gm/dL Hct 39.6 (39.0-53.0) % MCV 97.9 (80.0-100.0) fL MCH 33.5 (25.0-35.0) pg MCHC 34.2 (31.0-37.0) g/dL RDW 15.6 H (11.5-15.5) % Plt Count 197 (150-450) k/uL Neutrophils % 77 % Lymphocytes % 17 % Monocytes % 4 % Eosinophils % 1 % Basophils % 0 % Neutrophils # 5.1 (1.3-7.7) k/uL Lymphocytes # 1.2 (1.0-4.8) k/uL Monocytes # 0.3 (0-1.0) k/uL Eosinophils # 0.1 (0-0.7) k/uL Basophils # 0.0 (0-0.2) k/uL Sodium 135 L (137-145) mmol/L Potassium 3.8 (3.5-5.1) mmol/L Chloride 91 L (98-107) mmol/L Carbon Dioxide 25 (22-30) mmol/L Anion Gap 19 mmol/L BUN 10 (9-20) mg/dL Creatinine 0.80 (0.66-1.25) mg/dL Est GFR (CKD-EPI)AfAm >90 (>60 ml/min/1.73 sqM) Est GFR (CKD-EPI)NonAf >90 (>60 ml/min/1.73 sqM) Glucose 98 (74-99) mg/dL Calcium 9.8 (8.4-10.2) mg/dL Total Bilirubin 0.6 (0.2-1.3) mg/dL AST 87 H (17-59) U/L ALT 46 (21-72) U/L Alkaline Phosphatase 106 (38-126) U/L Total Protein 8.5 H (6.3-8.2) g/dL Albumin 4.6 (3.5-5.0) g/dL Amylase 75 (30-110) U/L Lipase 94 (23-300) U/L Urine Color Yellow Urine Appearance Clear (Clear) Urine pH 6.5 (5.0-8.0) Ur Specific [place] 1.019 (1.001-1.035) Urine Protein 1+ H (Negative) Urine Glucose (UA) Negative (Negative) Urine Ketones 2+ H (Negative) Urine Blood Moderate H (Negative) Urine Nitrite Negative (Negative) Urine Bilirubin Negative (Negative) Urine Urobilinogen <2.0 (<2.0) mg/dL Ur Leukocyte Esterase Negative (Negative) Urine RBC 1 (0-5) /hpf Urine WBC <1 (0-5) /hpf Ur Squamous Epith Cells <1 (0-4) /hpf Hyaline Casts 4 H (0-2) /lpf Urine Mucus Rare H (None) /hpf - Radiology Data Radiology results: report reviewed, image reviewed KUB x-ray was obtained. Report was reviewed in its entirety. Impression by Dr. Peralta shows nonacute abdomen. 5 views of the chest and right ribs are obtained. Report was reviewed in its entirety. Impression by Dr. Peralta shows COPD with no active cardiopulmonary disease. No rib fracture seen. Disposition Clinical Impression: Acute vomiting, Alcohol abuse Disposition: HOME SELF-CARE Condition: Good Instructions (If sedation given, give patient instructions): Acute Nausea and Vomiting (ED) Additional Instructions: Start with a clear liquid diet and advance as tolerated. Take medications as directed. Use Lidoderm patch to the right ribs for pain relief. Follow-up with your primary care physician for recheck in 1-2 days. Return to the emergency department immediately for any new, worsening, or concerning symptoms. Prescriptions: Lidocaine 5% Patch [Lidoderm] 1 patch TOPICAL DAILY #30 patch Ibuprofen [Motrin] 600 mg PO Q8HR PRN #30 tab PRN Reason: Pain Is patient prescribed a controlled substance at d/c from ED?: No Referrals: Scotty Arevalo MD [Primary Care Provider] - 1-2 days Time of Disposition: 20:27
[2019-07-19 18:29] LABS: Basophils % (A) 0 %; Eosinophils # (A) 0.1 k/uL (0-0.7); Eosinophils % (A) 1 %; HCT 39.6 % (39.0-53.0); HGB 13.5 gm/dL (13.0-17.5); Lymphocytes # (A) 1.2 k/uL (1.0-4.8); Lymphocytes % (A) 17 %; MCH 33.5 pg (25.0-35.0); MCHC 34.2 g/dL (31.0-37.0); MCV 97.9 fL (80.0-100.0); Mean Platelet Volume 6.9; Monocytes # (A) 0.3 k/uL (0-1.0); Monocytes % (A) 4 %; Neutrophils # (A) 5.1 k/uL (1.3-7.7); Neutrophils % (A) 77 %; Platelet Count 197 k/uL (150-450); RBC 4.05 m/uL (4.30-5.90); RDW 15.6 % (11.5-15.5); WBC 6.7 k/uL (3.8-10.6)
--- NOTE | 2019-07-19 18:35 | XR ---
EXAMINATION TYPE: XR ribs RT w pa chest xray DATE OF EXAM: 07/19/2019 COMPARISON: 03/24/2019 HISTORY: Chest pain TECHNIQUE: 5 views FINDINGS: Heart and mediastinum are normal. Lungs are clear of infiltrate. There is no pleural effusi on or pneumothorax. There is pulmonary hyperinflation. The right ribs appear intact. I see no rib fra cture. IMPRESSION: COPD. No active cardiopulmonary disease. No rib fracture seen.
--- NOTE | 2019-07-19 18:36 | XR ---
EXAMINATION TYPE: XR KUB DATE OF EXAM: 07/19/2019 COMPARISON: NONE HISTORY: Nausea and vomiting TECHNIQUE: 2 views upright FINDINGS: There is some contrast in the large bowel. There is no sign of intestinal obstruction or pn eumoperitoneum. Lung bases are clear. There are no pathologic calcifications over the kidneys. IMPRESSION: Nonacute abdomen.
[2019-07-19 18:37] LABS: ALT 46 U/L (21-72); AST 87 U/L (17-59); African American GFR (CKD) >90 (>60 ml/min/1.73 sqM); Albumin 4.6 g/dL (3.5-5.0); Alkaline Phosphatase 106 U/L (38-126); Amylase 75 U/L (30-110); Anion Gap 19 mmol/L; Blood Urea Nitrogen 10 mg/dL (9-20); Calcium 9.8 mg/dL (8.4-10.2); Carbon Dioxide 25 mmol/L (22-30); Chloride 91 mmol/L (98-107); Glucose 98 mg/dL (74-99); Non-African American GFR(CKD) >90 (>60 ml/min/1.73 sqM); Potassium 3.8 mmol/L (3.5-5.1); Sodium 135 mmol/L (137-145); Total Bilirubin 0.6 mg/dL (0.2-1.3); Total Protein 8.5 g/dL (6.3-8.2)
[2019-07-19 19:30] LABS: Appearance,Urine Clear (Clear); Bilirubin,Urine Negative (Negative); Blood,Urine Moderate (Negative); Color,Urine Yellow; Glucose,Urine (UA) Negative (Negative); Hyaline Casts,Urine 4 /lpf (0-2); Ketones,Urine 2+ (Negative); Leukocyte Esterase,Urine Negative (Negative); Mucus,Urine Rare /hpf; Nitrite,Urine Negative (Negative); PH, Urine 6.5 (5.0-8.0); Protein,Urine 1+ (Negative); RBC,Urine 1 /hpf (0-5); Specific Gravity,Urine 1.019 (1.001-1.035); Squamous Epithelial Cell,Urine <1 /hpf (0-4); Urobilinogen,Urine <2.0 mg/dL (<2.0); WBC,Urine <1 /hpf (0-5)
[2019-07-19 19:55] VITALS: BP 147/87; PULSE 81
[2019-07-19] MEDS ORDERED: ONDANSETRON 4 MG ODT STARTER PACK 2 TAB BTL PO STA (20:25)
== END 2019-07-19 20:50 | disposition home or self-care (01) ==
LOC: EC 17:47
DX: F10.10 Alcohol abuse, uncomplicated (principal); R07.81 Pleurodynia; F17.200 Nicotine dependence, unspecified, uncomplicated; Z79.1 Long term (current) use of non-steroidal anti-inflammatories (NSAID); Z91.81 History of falling; Z80.0 Family history of malignant neoplasm of digestive organs
CPT/HCPCS: 36415; 80053; 82150; 83690; 85025; 81001; 71101; 74018; 99284; 96374; 96375 ×2; 96361 ×2; J2405; S0119; J1170

== ENCOUNTER 2019-10-06 03:31 | Inpatient (IN) | payer OTHER ==
--- NOTE | 2019-10-06 04:03 | ED ---
Anxiety HPI - General Source: patient, EMS Mode of arrival: EMS <Taiwo Zazueta - Last Filed: 10/06/19 04:46> <Jacinda Oliver P - Last Filed: 10/06/19 07:10> - General Chief Complaint: Anxiety Stated Complaint: Anxiety Time Seen by Provider: 10/06/19 03:34 - History of Present Illness Initial Comments: Patient is a 54-year-old male with history of COPD, anxiety, panic attacks is presenting to emergency Department with chief complaint of anxiety. Patient contacted EMS for having an anxiety attack. Patient reports that he's been d rinking heavily over the last several weeks and was able to walk to the ambulance without any gait instability per EMS. Patient is complaining of a racing heart, shortness of breath and rapid shallow breathing which she believes is due to a panic attack. Patient reports a history of panic attacks and this one feels exactly the same. Patient reports drinking about a fifth of liquor daily for the last several weeks. Patient reports currently he is having diffuse abdominal pain for the last 4 days. Patient denies any urinary symptoms. Patient does report nausea but no vomiting. Patient reports loose, black stools the last 4 days. Patient denies hematochezia, hematuria, hemoptysis or hematemesis. Patient reports she uses nebulizer treatments daily but not today. (Taiwo Zazueta) - Related Data Home Medications: Home Medications Medication Instructions Recorded Confirmed Ibuprofen [Motrin Ib] 200 - 400 mg PO Q8H 06/25/19 06/25/19 Previous Rx's Medication Instructions Recorded Ibuprofen [Motrin] 600 mg PO Q8HR PRN #30 tab 07/19/19 Lidocaine 5% Patch [Lidoderm] 1 patch TOPICAL DAILY #30 patch 07/19/19 Allergies/Adverse Reactions: Allergies Allergy/AdvReac Type Severity Reaction Status Date / Time No Known Allergies Allergy Verified 07/19/19 17:59 Review of Systems ROS Other: All systems not noted in ROS Statement are negative. <Taiwo Zazueta - Last Filed: 10/06/19 04:46> ROS Other: All systems not noted in ROS Statement are negative. <Jacinda Oliver P - Last Filed: 10/06/19 07:10> ROS Statement: Those systems with pertinent positive or pertinent negative responses have been documented in the HPI. Past Medical History Past Medical History: COPD, GERD/Reflux, Pneumonia, Seizure Disorder, Syncope Additional Past Medical History / Comment(s): Severe ETOH abuse, alcohol withdrawal seizures/DTs, aspiration pneumonia, encephalopathy d/t alcohol, falls, thrombocytopenia, mastoiditis with surgery, chronic SOB. History of Any Multi-Drug Resistant Organisms: None Reported Past Surgical History: Ear Surgery, Tonsillectomy Additional Past Surgical History / Comment(s): Bilateral mastoidectomies, sinus surgery and vocal cord scraping. Past Anesthesia/Blood Transfusion Reactions: No Reported Reaction Past Psychological History: Anxiety, Bipolar, Depression Smoking Status: Current every day smoker Past Alcohol Use History: Abuse, Daily, Heavy Past Drug Use History: None Reported - Past Family History Father Family Medical History: Cancer Additional Family Medical History / Comment(s): Father was a stomach cancer survivor. He of spinal stenosis at the age of 88yrs. Mother Family Medical History: Hyperlipidemia Additional Family Medical History / Comment(s): Mother is living and is 85 yrs old. Brother(s) Additional Family Medical History / Comment(s): Bipolar, schizoprenia <Taiwo Zazueta - Last Filed: 10/06/19 04:46> General Exam Limitations: altered mental status General appearance: alert, in no apparent distress Head exam: Present: atraumatic, normocephalic, normal inspection Eye exam: Present: normal appearance, PERRL, EOMI Pupils: Present: normal accommodation ENT exam: Present: normal exam, normal oropharynx, mucous membranes dry, normal external ear exam Neck exam: Present: normal inspection, full ROM. Absent: tenderness Respiratory exam: Present: wheezes (Wheezing on the left lung base.) Cardiovascular Exam: Present: regular rate, normal rhythm, normal heart sounds GI/Abdominal exam: Present: soft, tenderness (Diffuse abdominal tenderness), normal bowel sounds. Absent: distended Extremities exam: Present: normal inspection, full ROM, normal capillary refill Back exam: Present: normal inspection, full ROM Neurological exam: Present: alert, oriented X3 Psychiatric exam: Present: normal affect, anxious Skin exam: Present: warm, dry, intact, normal color <Taiwo Zazueta - Last Filed: 10/06/19 04:46> Course Vital Signs 10/06/19 10/06/19 10/06/19 03:32 03:41 05:00 Temperature 97.7 F Pulse Rate 82 53 L Respiratory 18 18 16 Rate Blood Pressure 147/70 109/70 O2 Sat by Pulse 95 100 Oximetry 10/06/19 10/06/19 05:30 06:13 Temperature Pulse Rate 56 L 61 Respiratory 16 16 Rate Blood Pressure 103/68 109/68 O2 Sat by Pulse 100 97 Oximetry Medical Decision Making - Lab Data Result diagrams: 10/06/19 03:52 10/06/19 03:52 <Taiwo Zazueta - Last Filed: 10/06/19 04:46> - Lab Data Result diagrams: 10/06/19 03:52 10/06/19 03:52 <Jacinda Oliver - Last Filed: 10/06/19 07:10> - Medical Decision Making Patient is a 54-year-old male presenting to emergency Department with a chief complaint of anxiety. Patient was brought to the ED via EMS. Patient is currently complaining of anxiety, abdominal pain and nausea. Patient also reports some shortness of breath but states that is due to his baseline. CBC is indicative of a hemoglobin of 7.3. His most recent hemoglobin was 3 months ago and it was within normal range. Heme occult is negative. Serum alcohol is283. Patient will be admitted for alcohol intoxication and anemia. Chest x-ray showing chronic changes but no acute pathologies. Patient given antiemetics, Protonix and Bentyl with some improvement in symptoms. Case discussed with Dr. Oliver Initial physician is Dr. Arevalo. (Taiwo Zazueta) Patient was seen and evaluated by the mid-level provider. Labs and imaging were ordered. Labs resulted with an acute anemia patient has a history of anemia in the past. Stool guaiac was negative. Patient is complaining of abdominal pain. CT was ordered, I reviewed computed tomography scan see no acute findings. Patient will be admitted to his primary care physician Dr. Arevalo for further evaluation of anemia and for treatment of possible alcohol withdrawal. (Jacinda Oliver) - Lab Data Lab Results 10/06/19 10/06/19 10/06/19 Range/Units 03:52 03:52 03:52 WBC 5.7 (3.8-10.6) k/uL RBC 3.12 L (4.30-5.90) m/uL Hgb 7.2 L (13.0-17.5) gm/dL Hct 24.3 L (39.0-53.0) % MCV 77.9 L (80.0-100.0) fL MCH 22.9 L (25.0-35.0) pg MCHC 29.4 L (31.0-37.0) g/dL RDW 23.7 H (11.5-15.5) % Plt Count 195 (150-450) k/uL Neutrophils % 66 % Lymphocytes % 24 % Monocytes % 5 % Eosinophils % 1 % Basophils % 0 % Neutrophils # 3.8 (1.3-7.7) k/uL Lymphocytes # 1.4 (1.0-4.8) k/uL Monocytes # 0.3 (0-1.0) k/uL Eosinophils # 0.0 (0-0.7) k/uL Basophils # 0.0 (0-0.2) k/uL Manual Slide Review Performed Hypochromasia Marked Poikilocytosis Moderate Anisocytosis Moderate Microcytosis Moderate Target Cells Present Sodium 134 L (137-145) mmol/L Potassium 4.1 (3.5-5.1) mmol/L Chloride 98 (98-107) mmol/L Carbon Dioxide 20 L (22-30) mmol/L Anion Gap 16 mmol/L BUN 10 (9-20) mg/dL Creatinine 0.96 (0.66-1.25) mg/dL Est GFR (CKD-EPI)AfAm >90 (>60 ml/min/1.73 sqM) Est GFR (CKD-EPI)NonAf >90 (>60 ml/min/1.73 sqM) Glucose 82 (74-99) mg/dL Calcium 8.7 (8.4-10.2) mg/dL Total Bilirubin 0.3 (0.2-1.3) mg/dL AST 108 H (17-59) U/L ALT 48 (21-72) U/L Alkaline Phosphatase 98 (38-126) U/L Total Protein 7.9 (6.3-8.2) g/dL Albumin 4.4 (3.5-5.0) g/dL Amylase (30-110) U/L Lipase (23-300) U/L Urine Color Light Yellow Urine Appearance Clear (Clear) Urine pH 6.0 (5.0-8.0) Ur Specific [place] 1.005 (1.001-1.035) Urine Protein Negative (Negative) Urine Glucose (UA) Negative (Negative) Urine Ketones Negative (Negative) Urine Blood Trace H (Negative) Urine Nitrite Negative (Negative) Urine Bilirubin Negative (Negative) Urine Urobilinogen <2.0 (<2.0) mg/dL Ur Leukocyte Esterase Negative (Negative) Urine WBC <1 (0-5) /hpf Ur Squamous Epith Cells <1 (0-4) /hpf Stool Occult Blood (Negative) Urine Opiates Screen Not Detected (NotDetected) Ur Oxycodone Screen Not Detected (NotDetected) Urine Methadone Screen Not Detected (NotDetected) Ur Propoxyphene Screen Not Detected (NotDetected) Ur Barbiturates Screen Not Detected (NotDetected) U Tricyclic Antidepress Not Detected (NotDetected) Ur Phencyclidine Scrn Not Detected (NotDetected) Ur Amphetamines Screen Not Detected (NotDetected) U Methamphetamines Scrn Not Detected (NotDetected) U Benzodiazepines Scrn Not Detected (NotDetected) Urine Cocaine Screen Not Detected (NotDetected) U Marijuana (THC) Screen Detected H (NotDetected) Serum Alcohol 287 H* mg/dL Blood Type Blood Type Confirm Blood Type Recheck Bld Type Recheck Status Antibody Screen Spec Expiration Date 10/06/19 10/06/19 10/06/19 Range/Units 03:52 04:21 04:47 WBC (3.8-10.6) k/uL RBC (4.30-5.90) m/uL Hgb (13.0-17.5) gm/dL Hct (39.0-53.0) % MCV (80.0-100.0) fL MCH (25.0-35.0) pg MCHC (31.0-37.0) g/dL RDW (11.5-15.5) % Plt Count (150-450) k/uL Neutrophils % % Lymphocytes % % Monocytes % % Eosinophils % % Basophils % % Neutrophils # (1.3-7.7) k/uL Lymphocytes # (1.0-4.8) k/uL Monocytes # (0-1.0) k/uL Eosinophils # (0-0.7) k/uL Basophils # (0-0.2) k/uL Manual Slide Review Hypochromasia Poikilocytosis Anisocytosis Microcytosis Target Cells Sodium (137-145) mmol/L Potassium (3.5-5.1) mmol/L Chloride (98-107) mmol/L Carbon Dioxide (22-30) mmol/L Anion Gap mmol/L BUN (9-20) mg/dL Creatinine (0.66-1.25) mg/dL Est GFR (CKD-EPI)AfAm (>60 ml/min/1.73 sqM) Est GFR (CKD-EPI)NonAf (>60 ml/min/1.73 sqM) Glucose (74-99) mg/dL Calcium (8.4-10.2) mg/dL Total Bilirubin (0.2-1.3) mg/dL AST (17-59) U/L ALT (21-72) U/L Alkaline Phosphatase (38-126) U/L Total Protein (6.3-8.2) g/dL Albumin (3.5-5.0) g/dL Amylase 73 (30-110) U/L Lipase 155 (23-300) U/L Urine Color Urine Appearance (Clear) Urine pH (5.0-8.0) Ur Specific [place] (1.001-1.035) Urine Protein (Negative) Urine Glucose (UA) (Negative) Urine Ketones (Negative) Urine Blood (Negative) Urine Nitrite (Negative) Urine Bilirubin (Negative) Urine Urobilinogen (<2.0) mg/dL Ur Leukocyte Esterase (Negative) Urine WBC (0-5) /hpf Ur Squamous Epith Cells (0-4) /hpf Stool Occult Blood Negative (Negative) Urine Opiates Screen (NotDetected) Ur Oxycodone Screen (NotDetected) Urine Methadone Screen (NotDetected) Ur Propoxyphene Screen (NotDetected) Ur Barbiturates Screen (NotDetected) U Tricyclic Antidepress (NotDetected) Ur Phencyclidine Scrn (NotDetected) Ur Amphetamines Screen (NotDetected) U Methamphetamines Scrn (NotDetected) U Benzodiazepines Scrn (NotDetected) Urine Cocaine Screen (NotDetected) U Marijuana (THC) Screen (NotDetected) Serum Alcohol mg/dL Blood Type B Positive Blood Type Confirm Blood Type Recheck No Previous Record Bld Type Recheck Status CABO Indicated Antibody Screen NEGATIVE Spec Expiration Date 10/09/2019234610/06/19 Range/Units 04:48 WBC (3.8-10.6) k/uL RBC (4.30-5.90) m/uL Hgb (13.0-17.5) gm/dL Hct (39.0-53.0) % MCV (80.0-100.0) fL MCH (25.0-35.0) pg MCHC (31.0-37.0) g/dL RDW (11.5-15.5) % Plt Count (150-450) k/uL Neutrophils % % Lymphocytes % % Monocytes % % Eosinophils % % Basophils % % Neutrophils # (1.3-7.7) k/uL Lymphocytes # (1.0-4.8) k/uL Monocytes # (0-1.0) k/uL Eosinophils # (0-0.7) k/uL Basophils # (0-0.2) k/uL Manual Slide Review Hypochromasia Poikilocytosis Anisocytosis Microcytosis Target Cells Sodium (137-145) mmol/L Potassium (3.5-5.1) mmol/L Chloride (98-107) mmol/L Carbon Dioxide (22-30) mmol/L Anion Gap mmol/L BUN (9-20) mg/dL Creatinine (0.66-1.25) mg/dL Est GFR (CKD-EPI)AfAm (>60 ml/min/1.73 sqM) Est GFR (CKD-EPI)NonAf (>60 ml/min/1.73 sqM) Glucose (74-99) mg/dL Calcium (8.4-10.2) mg/dL Total Bilirubin (0.2-1.3) mg/dL AST (17-59) U/L ALT (21-72) U/L Alkaline Phosphatase (38-126) U/L Total Protein (6.3-8.2) g/dL Albumin (3.5-5.0) g/dL Amylase (30-110) U/L Lipase (23-300) U/L Urine Color Urine Appearance (Clear) Urine pH (5.0-8.0) Ur Specific [place] (1.001-1.035) Urine Protein (Negative) Urine Glucose (UA) (Negative) Urine Ketones (Negative) Urine Blood (Negative) Urine Nitrite (Negative) Urine Bilirubin (Negative) Urine Urobilinogen (<2.0) mg/dL Ur Leukocyte Esterase (Negative) Urine WBC (0-5) /hpf Ur Squamous Epith Cells (0-4) /hpf Stool Occult Blood (Negative) Urine Opiates Screen (NotDetected) Ur Oxycodone Screen (NotDetected) Urine Methadone Screen (NotDetected) Ur Propoxyphene Screen (NotDetected) Ur Barbiturates Screen (NotDetected) U Tricyclic Antidepress (NotDetected) Ur Phencyclidine Scrn (NotDetected) Ur Amphetamines Screen (NotDetected) U Methamphetamines Scrn (NotDetected) U Benzodiazepines Scrn (NotDetected) Urine Cocaine Screen (NotDetected) U Marijuana (THC) Screen (NotDetected) Serum Alcohol mg/dL Blood Type Blood Type Confirm B Positive Blood Type Recheck Bld Type Recheck Status Antibody Screen Spec Expiration Date Disposition Is patient prescribed a controlled substance at d/c from ED?: No Time of Disposition: 04:44 <Taiwo Zazueta - Last Filed: 10/06/19 04:46> <Jacinda Oliver - Last Filed: 10/06/19 07:10> Clinical Impression: Acute anxiety, Anemia, Alcohol intoxication Disposition: ADMITTED IP TO THIS HOSP Condition: Good
[2019-10-06] MEDS ORDERED: ONDANSETRON 4 MG/2 ML VIAL IVP STA (04:06)
--- NOTE | 2019-10-06 04:08 | XR ---
EXAMINATION TYPE: XR chest 2V DATE OF EXAM: 10/06/2019 COMPARISON: 07/19/2019 and 03/24/2019 HISTORY: Cough TECHNIQUE: Frontal and lateral views of the chest are obtained. FINDINGS: Heart is normal. There is some linear density in the right middle lobe anteriorly. The oth er lung daley are fairly clear. There are no hilar masses. There is no pleural effusion. IMPRESSION: There is some chronic right middle lobe scarring and atelectasis unchanged. Normal heart .
[2019-10-06 04:16] LABS: ALT 48 U/L (21-72); AST 108 U/L (17-59); African American GFR (CKD) >90 (>60 ml/min/1.73 sqM); Albumin 4.4 g/dL (3.5-5.0); Alcohol 287 mg/dL; Alkaline Phosphatase 98 U/L (38-126); Anion Gap 16 mmol/L; Blood Urea Nitrogen 10 mg/dL (9-20); Calcium 8.7 mg/dL (8.4-10.2); Carbon Dioxide 20 mmol/L (22-30); Chloride 98 mmol/L (98-107); Glucose 82 mg/dL (74-99); Potassium 4.1 mmol/L (3.5-5.1); Sodium 134 mmol/L (137-145); Total Bilirubin 0.3 mg/dL (0.2-1.3); Total Protein 7.9 g/dL (6.3-8.2)
[2019-10-06] MEDS ORDERED: DICYCLOMINE 10 MG/ML 2 ML AMP IM STA (04:22)
[2019-10-06] MEDS ORDERED: PANTOPRAZOLE 40 MG/10 ML VIAL IVP STA (04:23)
[2019-10-06 04:25] LABS: Amylase 73 U/L (30-110); Appearance,Urine Clear (Clear); Bilirubin,Urine Negative (Negative); Blood,Urine Trace (Negative); Color,Urine Light Yellow; Glucose,Urine (UA) Negative (Negative); Ketones,Urine Negative (Negative); Leukocyte Esterase,Urine Negative (Negative); Nitrite,Urine Negative (Negative); Protein,Urine Negative (Negative); Specific Gravity,Urine 1.005 (1.001-1.035); Squamous Epithelial Cell,Urine <1 /hpf (0-4); Urobilinogen,Urine <2.0 mg/dL (<2.0); WBC,Urine <1 /hpf (0-5)
[2019-10-06 04:27] LABS: Amphetamine Screen,Urine Not Detected (NotDetected); Anisocytosis Moderate; Barbiturate Screen,Urine Not Detected (NotDetected); Basophils % (A) 0 %; Benzodiazepines Screen,Urine Not Detected (NotDetected); Cocaine Screen,Urine Not Detected (NotDetected); Eosinophils % (A) 1 %; HCT 24.3 % (39.0-53.0); HGB 7.2 gm/dL (13.0-17.5); Hypochromasia Marked; Lymphocytes # (A) 1.4 k/uL (1.0-4.8); Lymphocytes % (A) 24 %; MCH 22.9 pg (25.0-35.0); MCHC 29.4 g/dL (31.0-37.0); MCV 77.9 fL (80.0-100.0); Mean Platelet Volume 7.1; Methadone Screen, Urine Not Detected (NotDetected); Microcytosis Moderate; Monocytes # (A) 0.3 k/uL (0-1.0); Monocytes % (A) 5 %; Neutrophils # (A) 3.8 k/uL (1.3-7.7); Neutrophils % (A) 66 %; Opiate Screen,Urine Not Detected (NotDetected); Oxycodone Screen, Urine Not Detected (NotDetected); Phencyclidine Screen,Urine Not Detected (NotDetected); Platelet Count 195 k/uL (150-450); Poikilocytosis Moderate; RBC 3.12 m/uL (4.30-5.90); RDW 23.7 % (11.5-15.5); Tricyclic Antidepressant,Urine Not Detected (NotDetected); Urn Cannabinoid Scrn Detected (NotDetected); WBC 5.7 k/uL (3.8-10.6)
[2019-10-06 04:57] LABS: Target Cells Present
[2019-10-06] MEDS ORDERED: NALOXONE 0.4 MG/ML 1 ML VIAL IV PRN (05:21)
[2019-10-06] MEDS ORDERED: THIAMINE 100 MG/ML 2 ML VIAL IM STA (05:39)
[2019-10-06] MEDS ORDERED: LORazepam 2 MG/ML INJ IV PRN ×2 (05:39)
--- NOTE | 2019-10-06 06:34 | CT ---
EXAM: CT Abdomen and Pelvis With Intravenous Contrast CLINICAL HISTORY: Reason: abdominal pain TECHNIQUE: Axial computed tomography images of the abdomen and pelvis with intravenous contrast. CTDI is 9.1 mGy and DLP is 766 mGy-cm. This CT exam was performed using one or more of the following dose reduction techniques: automated exposure control, adjustment of the mA and/or kV according to patient size, and/or use of iterative reconstruction technique. COMPARISON: No relevant prior studies available. FINDINGS: Lung bases: Chronic appearing atelectasis or scarring in the right middle lobe. No pleural effusions or basilar consolidation. ABDOMEN: Liver: Hepatic steatosis. No focal hepatic lesion. Gallbladder and bile ducts: Unremarkable. No calcified stones. No ductal dilation. Pancreas: Unremarkable. No mass. No ductal dilation. Spleen: Unremarkable. No splenomegaly. Adrenals: Unremarkable. No mass. Kidneys and ureters: Unremarkable. No solid mass. No hydronephrosis. Stomach and bowel: Unremarkable. No obstruction. No mucosal thickening. PELVIS: Appendix: No findings to suggest acute appendicitis. Bladder: Unremarkable. No mass. Reproductive: Unremarkable as visualized. ABDOMEN and PELVIS: Intraperitoneal space: Unremarkable. No free air. No significant fluid collection. Bones/joints: No acute fracture. No dislocation. Old bilateral rib fractures. Soft tissues: Unremarkable. Vasculature: Unremarkable. No abdominal aortic aneurysm. Lymph nodes: Unremarkable. No enlarged lymph nodes. IMPRESSION: No acute inflammatory or obstructive process is identified within the abdomen or pelvis. Hepatic steatosis.
[2019-10-06] MEDS: LORazepam 2 MG/ML INJ IV PRN ×5 (09:11→23:57)
[2019-10-06] MEDS: THIAMINE 100 MG TAB PO SCH (15:52)
--- NOTE | 2019-10-06 17:53 | HP ---
HISTORY AND PHYSICAL CHIEF COMPLAINT: Acute alcohol intoxication and anemia. HISTORY OF PRESENT ILLNESS: This is another admission for this is a 54-year-old white male, a chronic alcoholic. He has not been in the office for a year. He apparently was brought into the emergency room extremely intoxicated. He also is significantly anemic. This is probably due to GI blood loss, in that he recently has had some diarrhea which was "black." He has had no epigastric pain, hematemesis, etc. REVIEW OF SYSTEMS: He has had no seizures, blackouts, change in the vision or the hearing, cough, hemoptysis, heart disease, palpitations, orthopnea, PND, chest pain, jaundice, acholic stools, dark urine, renal failure, dysuria, frequency, urgency, incontinence, nocturia, diabetes, etc. Past medical history, family history, and personal and social histories reveal he is NOT ALLERGIC TO ANY MEDICATION and he is not really taking anything except for an albuterol inhaler. He continues to smoke heavily and drinks daily. PHYSICAL EXAMINATION: Blood pressure 118/80 with a pulse of 98, respirations 25. He is afebrile. In general he appeared to be pale and in no acute distress. He was awake and alert. He was not tremulous. Head, ears, eyes, nose, mouth and throat were normal. The chest was clear. There were occasional rales. The cardiac exam was normal. The abdomen was soft and nontender. Extremities were normal. Neurologically he was intact. IMPRESSION: 1. Acute alcohol intoxication. 2. Impending delirium tremens. 3. Nicotine abuse. 4. Anemia, probably blood loss. PLAN: 1. Bed rest. 2. IV fluids. 3. Watch for DTs. 4. Work up anemia. MMODL / IJN: [id number] /
[2019-10-07] MEDS: LORazepam 2 MG/ML INJ IV PRN ×7 (02:15→22:17)
[2019-10-07] MEDS: THIAMINE 100 MG TAB PO SCH ×2 (08:54→18:18)
[2019-10-07 11:33] LABS: ALT 51 U/L (21-72); AST 91 U/L (17-59); African American GFR (CKD) >90 (>60 ml/min/1.73 sqM); Albumin 4.2 g/dL (3.5-5.0); Alkaline Phosphatase 77 U/L (38-126); Anion Gap 9 mmol/L; Blood Urea Nitrogen 11 mg/dL (9-20); Calcium 8.9 mg/dL (8.4-10.2); Carbon Dioxide 26 mmol/L (22-30); Chloride 96 mmol/L (98-107); Glucose 109 mg/dL (74-99); Potassium 4.1 mmol/L (3.5-5.1); Sodium 131 mmol/L (137-145); Total Bilirubin 0.6 mg/dL (0.2-1.3); Total Protein 7.7 g/dL (6.3-8.2)
[2019-10-07 11:46] LABS: Anisocytosis Moderate; Basophils # (A) 0.1 k/uL (0-0.2); Basophils % (A) 1 %; Eosinophils % (A) 0 %; HCT 21.5 % (39.0-53.0); Hypochromasia Marked; Lymphocytes # (A) 1.1 k/uL (1.0-4.8); Lymphocytes % (A) 7 %; MCH 23.2 pg (25.0-35.0); MCV 77.3 fL (80.0-100.0); Mean Platelet Volume 7.2; Microcytosis Moderate; Monocytes # (A) 0.8 k/uL (0-1.0); Monocytes % (A) 5 %; Neutrophils # (A) 14.6 k/uL (1.3-7.7); Neutrophils % (A) 87 %; Platelet Count 236 k/uL (150-450); Poikilocytosis Moderate; RBC 2.78 m/uL (4.30-5.90); RDW 23.5 % (11.5-15.5); WBC 16.9 k/uL (3.8-10.6)
[2019-10-07 11:54] LABS: HGB 6.5 gm/dL (13.0-17.5)
[2019-10-07 13:22] LABS: Partial Thromboplastin Time 27.3 sec (22.0-30.0); Prothrombin Time 10.5 sec (9.0-12.0)
--- NOTE | 2019-10-07 19:32 | PN ---
PROGRESS NOTE CHIEF COMPLAINT: Acute alcohol intoxication and anemia. HISTORY OF PRESENT ILLNESS: This gentleman is doing fairly well. He is not in DTs. It turns out his hemoglobin has dropped down below 7. There are no signs of bleeding. PHYSICAL EXAMINATION: He remains pale. Chest is fairly clear. Cardiac exam is normal. The abdomen is soft and nontender. IMPRESSION: 1. Acute alcohol intoxication. 2. Alcoholism. 3. Anemia. PLAN: 1. Transfuse 1 unit. 2. Continue to monitor hemoglobin. He may require further workup, including GI studies. MMODL / IJN: [id number] /
[2019-10-08] MEDS: LORazepam 2 MG/ML INJ IV PRN ×4 (00:37→12:37)
[2019-10-08 07:24] LABS: Anisocytosis Moderate; Basophils # (A) 0.1 k/uL (0-0.2); Basophils % (A) 1 %; Eosinophils # (A) 0.1 k/uL (0-0.7); Eosinophils % (A) 1 %; HCT 23.8 % (39.0-53.0); HGB 7.1 gm/dL (13.0-17.5); Hypochromasia Marked; Lymphocytes # (A) 1.3 k/uL (1.0-4.8); Lymphocytes % (A) 10 %; MCH 23.3 pg (25.0-35.0); MCHC 29.9 g/dL (31.0-37.0); MCV 77.7 fL (80.0-100.0); Mean Platelet Volume 8.2; Microcytosis Marked; Monocytes # (A) 0.7 k/uL (0-1.0); Monocytes % (A) 6 %; Neutrophils # (A) 11.1 k/uL (1.3-7.7); Neutrophils % (A) 82 %; Platelet Count 229 k/uL (150-450); Poikilocytosis Marked; RBC 3.06 m/uL (4.30-5.90); RDW 23.5 % (11.5-15.5); WBC 13.5 k/uL (3.8-10.6)
[2019-10-08 08:17] VITALS: BP 103/63; PULSE 99; RESP 17; TEMP 98.1
[2019-10-08] MEDS: THIAMINE 100 MG TAB PO SCH (08:33)
--- NOTE | 2019-10-09 06:56 | DS ---
DISCHARGE SUMMARY CHIEF COMPLAINT: Acute alcohol intoxication. HISTORY OF PRESENT ILLNESS AND PHYSICAL EXAM: Details of this man's history and physical can be found in the initial workup. LABORATORY STUDIES: While he was in a hospital he had laboratory studies, details of which can be found in the laboratory section of his chart. COURSE IN THE HOSPITAL: After admission, he was placed on bedrest, started on intravenous fluids and started on CIWA protocol. He was found to be profoundly anemic and his hemoglobin dropped below 7. He was given 1 unit of packed cells. He started to go into DTs and then suddenly became extremely agitated, jumped out of bed and left the hospital abruptly. FINAL DIAGNOSES: 1. Acute alcohol intoxication. 2. Chronic alcoholism. 3. Delirium tremens. 4. Anemia, unspecified. OPERATIONS: None. CONSULTATIONS: None. He is not improved. ANGELICA / SHAW: [id number] /
== END 2019-10-08 13:11 | disposition left against medical advice (07) | DRG 894 ==
LOC: EC 03:31 → 4SSUR 05:21
PROVIDERS: ADMIT Family Medicine; ATTEND Family Medicine
PROC: 30233N1 Transfusion of Nonautologous Red Blood Cells into Peripheral Vein, Percutaneous Approach (ICD-10-PCS; principal; 2019-10-07)
DX: F10.221 Alcohol dependence with intoxication delirium (principal); D64.9 Anemia, unspecified; F17.200 Nicotine dependence, unspecified, uncomplicated; F41.0 Panic disorder [episodic paroxysmal anxiety]; G40.909 Epilepsy, unspecified, not intractable, without status epilepticus; J44.9 Chronic obstructive pulmonary disease, unspecified; F32.9 Major depressive disorder, single episode, unspecified; K21.9 Gastro-esophageal reflux disease without esophagitis; R10.84 Generalized abdominal pain; Z79.899 Other long term (current) drug therapy; Z87.01 Personal history of pneumonia (recurrent); Z80.0 Family history of malignant neoplasm of digestive organs; Y90.8 Blood alcohol level of 240 mg/100 ml or more; D50.0 Iron deficiency anemia secondary to blood loss (chronic)
CPT/HCPCS: 36415; 71046; 74177; 80053; 80306; 80320; 81001; 82075; 82150; 82272; 83690; 85025; 85610; 85730; 86850; 86900; 86901; 86920; 96372; 96374; 96375; 99285

== ENCOUNTER 2019-12-02 03:20 | Inpatient (IN) | payer OTHER ==
[2019-12-02] MEDS ORDERED: FAMOTIDINE 20 MG/2 ML VIAL IV STA (03:42)
[2019-12-02] MEDS ORDERED: MAG HYDROX/AL HYDROX/SIMETH 30 ML, HYOSCYAMINE ELIXIR 10 ML, LIDOCAINE VISCOUS 2% 10 ML PO STA ×3 (03:42)
[2019-12-02 03:51] LABS: Anisocytosis Moderate; Basophils # (A) 0.1 k/uL (0-0.2); Basophils % (A) 1 %; Eosinophils # (A) 0.1 k/uL (0-0.7); Eosinophils % (A) 2 %; HCT 29.3 % (39.0-53.0); HGB 8.5 gm/dL (13.0-17.5); Hypochromasia Marked; Lymphocytes # (A) 2.1 k/uL (1.0-4.8); Lymphocytes % (A) 37 %; MCH 21.6 pg (25.0-35.0); MCHC 29.1 g/dL (31.0-37.0); MCV 74.1 fL (80.0-100.0); Mean Platelet Volume 7.7; Microcytosis Moderate; Monocytes # (A) 0.5 k/uL (0-1.0); Monocytes % (A) 9 %; Neutrophils # (A) 2.7 k/uL (1.3-7.7); Neutrophils % (A) 48 %; Platelet Count 273 k/uL (150-450); RBC 3.96 m/uL (4.30-5.90); RDW 20.4 % (11.5-15.5); WBC 5.6 k/uL (3.8-10.6)
[2019-12-02 03:56] LABS: ALT 33 U/L (4-49); AST 111 U/L (17-59); African American GFR (CKD) >90 (>60 ml/min/1.73 sqM); Albumin 4.5 g/dL (3.5-5.0); Alkaline Phosphatase 87 U/L (38-126); Amylase 75 U/L (30-110); Anion Gap 15 mmol/L; Blood Urea Nitrogen 7 mg/dL (9-20); Calcium 9.3 mg/dL (8.4-10.2); Carbon Dioxide 20 mmol/L (22-30); Chloride 99 mmol/L (98-107); Glucose 98 mg/dL (74-99); Non-African American GFR(CKD) >90 (>60 ml/min/1.73 sqM); Potassium 3.9 mmol/L (3.5-5.1); Sodium 134 mmol/L (137-145); Total Bilirubin 0.4 mg/dL (0.2-1.3); Total Protein 8.6 g/dL (6.3-8.2)
[2019-12-02 03:59] LABS: Alcohol 228 mg/dL
--- NOTE | 2019-12-02 04:21 | ED ---
Abdominal Pain HPI - General Chief Complaint: Abdominal Pain Stated Complaint: abd pain Time Seen by Provider: 12/02/19 03:41 Source: EMS Mode of arrival: EMS Limitations: no limitations - History of Present Illness Initial Comments: Shouldn't is a 54-year-old man who presents with complaint of lower abdominal pain. The patient states that this had been going on for number weeks. He was seen here, he states he was told there was concern about developing ulcer, and the patient went home. He states that after he was seen here he did feel better for a period of time but over the past couple of days the pain has seemed to worsen. He does indicate the lower abdomen. He states that he has not noted any relieving factors, but the pain does seem to be worse if he tries to eat. He has had a number of episodes of nausea and vomiting and he also had a number of episodes of diarrhea today. He did not note any blood or coffee-ground emesis. No blood or dark tarry stools. MD Complaint: abdominal pain Location: RLQ Radiation: none Migration to: no migration Severity: moderate Quality: aching, burning Consistency: constant Improves With: nothing Worsens With: eating Associated Symptoms: vomiting, diarrhea - Related Data Home Medications Medication Instructions Recorded Confirmed Albuterol Nebulized [Ventolin 3 ml INHALATION RT-TID PRN 12/02/19 12/02/19 Nebulized] Omeprazole [PriLOSEC] 20 mg PO DAILY 12/02/19 12/02/19 Allergies Allergy/AdvReac Type Severity Reaction Status Date / Time No Known Allergies Allergy Verified 12/02/19 07:33 Review of Systems ROS Statement: Those systems with pertinent positive or pertinent negative responses have been documented in the HPI. ROS Other: All systems not noted in ROS Statement are negative. Constitutional: Denies: fever, chills Respiratory: Denies: cough, dyspnea Cardiovascular: Denies: chest pain, palpitations, edema Gastrointestinal: Reports: abdominal pain, nausea, vomiting, diarrhea. Denies: constipation, hematemesis, melena, hematochezia Genitourinary: Denies: dysuria, hematuria, testicular pain Musculoskeletal: Denies: back pain Skin: Denies: rash Neurological: Denies: headache Past Medical History Past Medical History: COPD, GERD/Reflux, Pneumonia, Seizure Disorder, Syncope Additional Past Medical History / Comment(s): Severe ETOH abuse, alcohol withdrawal seizures/DTs, aspiration pneumonia, encephalopathy d/t alcohol, falls, thrombocytopenia, mastoiditis with surgery, chronic SOB. History of Any Multi-Drug Resistant Organisms: None Reported Past Surgical History: Ear Surgery, Tonsillectomy Additional Past Surgical History / Comment(s): Bilateral mastoidectomies, sinus surgery and vocal cord scraping. Past Anesthesia/Blood Transfusion Reactions: No Reported Reaction Past Psychological History: Anxiety, Bipolar, Depression Smoking Status: Current every day smoker Past Alcohol Use History: Abuse, Daily, Heavy Past Drug Use History: Marijuana - Past Family History Father Family Medical History: Cancer Additional Family Medical History / Comment(s): Father was a stomach cancer survivor. He of spinal stenosis at the age of 88yrs. Mother Family Medical History: Hyperlipidemia Additional Family Medical History / Comment(s): Mother is living and is 85 yrs old. Brother(s) Additional Family Medical History / Comment(s): Bipolar, schizoprenia General Exam Limitations: no limitations General appearance: alert, in no apparent distress Head exam: Present: atraumatic, normocephalic Eye exam: Present: normal appearance. Absent: scleral icterus, conjunctival injection Respiratory exam: Present: normal lung sounds bilaterally. Absent: respiratory distress, wheezes, rales, rhonchi, stridor Cardiovascular Exam: Present: regular rate, normal rhythm, normal heart sounds. Absent: systolic murmur, diastolic murmur, rubs, gallop GI/Abdominal exam: Present: soft, tenderness (Patient has suprapubic tenderness, without rebound or guarding), normal bowel sounds, hernia (There is umbilical hernia without tenderness.). Absent: distended, guarding, rebound, rigid, mass, pulsatile mass Extremities exam: Present: normal inspection, normal capillary refill. Absent: pedal edema, calf tenderness Back exam: Present: normal inspection. Absent: CVA tenderness (R), CVA tenderness (L) Neurological exam: Present: alert Skin exam: Present: warm, dry, intact, normal color. Absent: rash Course Vital Signs 12/02/19 12/02/19 12/02/19 03:20 03:22 04:34 Temperature 98.3 F Pulse Rate 120 H 72 Pulse Rate [ Pulse Oximetery ] Respiratory 18 18 Rate Blood Pressure 110/67 110/72 Blood Pressure [Left Arm] O2 Sat by Pulse 97 98 Oximetry 12/02/19 12/02/19 12/02/19 06:35 08:00 11:39 Temperature 98.7 F 98.4 F Pulse Rate 73 76 78 Pulse Rate [ Pulse Oximetery ] Respiratory 16 18 16 Rate Blood Pressure 113/81 118/74 120/92 Blood Pressure [Left Arm] O2 Sat by Pulse 95 98 97 Oximetry 12/02/19 12/02/19 13:33 15:00 Temperature 98.2 F Pulse Rate 65 Pulse Rate [ 62 Pulse Oximetery ] Respiratory 16 17 Rate Blood Pressure Blood Pressure 150/83 [Left Arm] O2 Sat by Pulse 100 95 Oximetry Medical Decision Making - Lab Data Result diagrams: 12/06/19 10:22 12/03/19 07:18 Lab Results 12/02/19 12/02/19 12/02/19 Range/Units 03:34 03:34 03:34 WBC 5.6 (3.8-10.6) k/uL RBC 3.96 L (4.30-5.90) m/uL Hgb 8.5 L (13.0-17.5) gm/dL Hct 29.3 L (39.0-53.0) % MCV 74.1 L (80.0-100.0) fL MCH 21.6 L (25.0-35.0) pg MCHC 29.1 L (31.0-37.0) g/dL RDW 20.4 H (11.5-15.5) % Plt Count 273 (150-450) k/uL Neutrophils % 48 % Lymphocytes % 37 % Monocytes % 9 % Eosinophils % 2 % Basophils % 1 % Neutrophils # 2.7 (1.3-7.7) k/uL Lymphocytes # 2.1 (1.0-4.8) k/uL Monocytes # 0.5 (0-1.0) k/uL Eosinophils # 0.1 (0-0.7) k/uL Basophils # 0.1 (0-0.2) k/uL Hypochromasia Marked Anisocytosis Moderate Microcytosis Moderate ESR (0-15) mm/hr Sodium 134 L (137-145) mmol/L Potassium 3.9 (3.5-5.1) mmol/L Chloride 99 (98-107) mmol/L Carbon Dioxide 20 L (22-30) mmol/L Anion Gap 15 mmol/L BUN 7 L (9-20) mg/dL Creatinine 0.84 (0.66-1.25) mg/dL Est GFR (CKD-EPI)AfAm >90 (>60 ml/min/1.73 sqM) Est GFR (CKD-EPI)NonAf >90 (>60 ml/min/1.73 sqM) Glucose 98 (74-99) mg/dL Calcium 9.3 (8.4-10.2) mg/dL Total Bilirubin 0.4 (0.2-1.3) mg/dL AST 111 H (17-59) U/L ALT 33 (4-49) U/L Alkaline Phosphatase 87 (38-126) U/L Troponin I <0.012 (0.000-0.034) ng/mL C-Reactive Protein (<10.0) mg/L Total Protein 8.6 H (6.3-8.2) g/dL Albumin 4.5 (3.5-5.0) g/dL Amylase 75 (30-110) U/L Lipase 305 H (23-300) U/L Urine Color Urine Appearance (Clear) Urine pH (5.0-8.0) Ur Specific Alto (1.001-1.035) Urine Protein (Negative) Urine Glucose (UA) (Negative) Urine Ketones (Negative) Urine Blood (Negative) Urine Nitrite (Negative) Urine Bilirubin (Negative) Urine Urobilinogen (<2.0) mg/dL Ur Leukocyte Esterase (Negative) Serum Alcohol 228 H* mg/dL C. difficile (EIA) Intrp (Negative) HIV-1 Antibody (Non-Reactive) HIV Ag/Ab Interpret HIV p24 Antibody (Non-Reactive) HIV-2 Antibody (Non-Reactive) HIV P24 Antigen (Non-Reactive) 12/02/19 12/03/19 12/03/19 Range/Units 06:15 07:18 07:18 WBC 5.5 (3.8-10.6) k/uL RBC 3.70 L (4.30-5.90) m/uL Hgb 8.1 L (13.0-17.5) gm/dL Hct 27.9 L (39.0-53.0) % MCV 75.4 L (80.0-100.0) fL MCH 22.0 L (25.0-35.0) pg MCHC 29.1 L (31.0-37.0) g/dL RDW 20.8 H (11.5-15.5) % Plt Count 233 (150-450) k/uL Neutrophils % 76 % Lymphocytes % 14 % Monocytes % 6 % Eosinophils % 1 % Basophils % 1 % Neutrophils # 4.2 (1.3-7.7) k/uL Lymphocytes # 0.8 L (1.0-4.8) k/uL Monocytes # 0.4 (0-1.0) k/uL Eosinophils # 0.1 (0-0.7) k/uL Basophils # 0.1 (0-0.2) k/uL Hypochromasia Marked Anisocytosis Moderate Microcytosis Moderate ESR 22 H (0-15) mm/hr Sodium 136 L (137-145) mmol/L Potassium 3.9 (3.5-5.1) mmol/L Chloride 104 (98-107) mmol/L Carbon Dioxide 24 (22-30) mmol/L Anion Gap 8 mmol/L BUN 9 (9-20) mg/dL Creatinine 0.74 (0.66-1.25) mg/dL Est GFR (CKD-EPI)AfAm >90 (>60 ml/min/1.73 sqM) Est GFR (CKD-EPI)NonAf >90 (>60 ml/min/1.73 sqM) Glucose 75 (74-99) mg/dL Calcium 8.7 (8.4-10.2) mg/dL Total Bilirubin (0.2-1.3) mg/dL AST (17-59) U/L ALT (4-49) U/L Alkaline Phosphatase (38-126) U/L Troponin I (0.000-0.034) ng/mL C-Reactive Protein <5.0 (<10.0) mg/L Total Protein (6.3-8.2) g/dL Albumin (3.5-5.0) g/dL Amylase (30-110) U/L Lipase (23-300) U/L Urine Color Light Yellow Urine Appearance Clear (Clear) Urine pH 7.0 (5.0-8.0) Ur Specific Alto 1.012 (1.001-1.035) Urine Protein Negative (Negative) Urine Glucose (UA) Negative (Negative) Urine Ketones Negative (Negative) Urine Blood Negative (Negative) Urine Nitrite Negative (Negative) Urine Bilirubin Negative (Negative) Urine Urobilinogen <2.0 (<2.0) mg/dL Ur Leukocyte Esterase Negative (Negative) Serum Alcohol mg/dL C. difficile (EIA) Intrp (Negative) HIV-1 Antibody (Non-Reactive) HIV Ag/Ab Interpret HIV p24 Antibody (Non-Reactive) HIV-2 Antibody (Non-Reactive) HIV P24 Antigen (Non-Reactive) 12/03/19 12/03/19 Range/Units 07:18 11:30 WBC (3.8-10.6) k/uL RBC (4.30-5.90) m/uL Hgb (13.0-17.5) gm/dL Hct (39.0-53.0) % MCV (80.0-100.0) fL MCH (25.0-35.0) pg MCHC (31.0-37.0) g/dL RDW (11.5-15.5) % Plt Count (150-450) k/uL Neutrophils % % Lymphocytes % % Monocytes % % Eosinophils % % Basophils % % Neutrophils # (1.3-7.7) k/uL Lymphocytes # (1.0-4.8) k/uL Monocytes # (0-1.0) k/uL Eosinophils # (0-0.7) k/uL Basophils # (0-0.2) k/uL Hypochromasia Anisocytosis Microcytosis ESR (0-15) mm/hr Sodium (137-145) mmol/L Potassium (3.5-5.1) mmol/L Chloride (98-107) mmol/L Carbon Dioxide (22-30) mmol/L Anion Gap mmol/L BUN (9-20) mg/dL Creatinine (0.66-1.25) mg/dL Est GFR (CKD-EPI)AfAm (>60 ml/min/1.73 sqM) Est GFR (CKD-EPI)NonAf (>60 ml/min/1.73 sqM) Glucose (74-99) mg/dL Calcium (8.4-10.2) mg/dL Total Bilirubin (0.2-1.3) mg/dL AST (17-59) U/L ALT (4-49) U/L Alkaline Phosphatase (38-126) U/L Troponin I (0.000-0.034) ng/mL C-Reactive Protein (<10.0) mg/L Total Protein (6.3-8.2) g/dL Albumin (3.5-5.0) g/dL Amylase (30-110) U/L Lipase (23-300) U/L Urine Color Urine Appearance (Clear) Urine pH (5.0-8.0) Ur Specific Alto (1.001-1.035) Urine Protein (Negative) Urine Glucose (UA) (Negative) Urine Ketones (Negative) Urine Blood (Negative) Urine Nitrite (Negative) Urine Bilirubin (Negative) Urine Urobilinogen (<2.0) mg/dL Ur Leukocyte Esterase (Negative) Serum Alcohol mg/dL C. difficile (EIA) Intrp Negative (Negative) HIV-1 Antibody Non-Reactive (Non-Reactive) HIV Ag/Ab Interpret HIV p24 Antibody Non-Reactive (Non-Reactive) HIV-2 Antibody Non-Reactive (Non-Reactive) HIV P24 Antigen Non-Reactive (Non-Reactive) - EKG Data -: EKG Interpreted by [facility] EKG shows normal: sinus rhythm (Normal), axis (Normal), intervals (Normal), QRS complexes (Normal), ST-T waves (Normal) Rate: normal (Rate 89 bpm) Disposition Clinical Impression: Colitis Narrative: Possible mycobacterium infection Disposition: ADMITTED IP TO THIS HOSP Condition: Fair Is patient prescribed a controlled substance at d/c from ED?: No
--- NOTE | 2019-12-02 05:58 | CT ---
EXAM: CT Abdomen and Pelvis With Intravenous Contrast CLINICAL HISTORY: ITS.REASON CT Reason: RLQ abd pain. possible appendicitis TECHNIQUE: Axial computed tomography images of the abdomen and pelvis with intravenous contrast. CTDI is 10 mGy and DLP is 479 mGy-cm. This CT exam was performed using one or more of the following dose reduction techniques: automated exposure control, adjustment of the mA and/or kV according to patient size, and/or use of iterative reconstruction technique. COMPARISON: 10/06/19 CT abdomen FINDINGS: Lung bases: Chronic opacity in the right middle lobe unchanged. ABDOMEN: Liver: Steatosis. Gallbladder and bile ducts: Unremarkable. Pancreas: Unremarkable. Spleen: Unremarkable. Adrenals: Unremarkable. Kidneys and ureters: No hydronephrosis. Stomach and bowel: No bowel obstruction. Thickened ascending and transverse colon PELVIS: Appendix: No evidence of appendicitis. Bladder: Unremarkable. Reproductive: Unremarkable. ABDOMEN and PELVIS: Intraperitoneal space: Unremarkable. Bones/joints: No acute fractures. Soft tissues: Unremarkable. Vasculature: No abdominal aortic aneurysm. Lymph nodes: No enlarged lymph nodes. IMPRESSION: 1. Findings compatible with infectious/inflammatory ascending and transverse colitis. 2. Appendix is normal. 3. Chronic opacity in the right middle lobe, likely from prior mycobacterial/atypical infection such as MARLO.
[2019-12-02 06:25] LABS: Appearance,Urine Clear (Clear); Bilirubin,Urine Negative (Negative); Blood,Urine Negative (Negative); Color,Urine Light Yellow; Glucose,Urine (UA) Negative (Negative); Ketones,Urine Negative (Negative); Leukocyte Esterase,Urine Negative (Negative); Nitrite,Urine Negative (Negative); Protein,Urine Negative (Negative); Specific Gravity,Urine 1.012 (1.001-1.035); Urobilinogen,Urine <2.0 mg/dL (<2.0)
[2019-12-02] MEDS ORDERED: AZITHROMYCIN 500 MG in SODIUM CHLORIDE 0.9% 250 ML IVPB STA (06:44)
[2019-12-02] MEDS ORDERED: NALOXONE 0.4 MG/ML 1 ML VIAL IV PRN (07:18)
[2019-12-02] MEDS ORDERED: THIAMINE 100 MG/ML 2 ML VIAL IM STA (07:28)
[2019-12-02] MEDS ORDERED: LORazepam 2 MG/ML INJ IV PRN (07:28)
[2019-12-02] MEDS: ACETAMINOPHEN TAB 325 MG TAB PO PRN ×3 (07:58→20:08)
[2019-12-02] MEDS: PANTOPRAZOLE 40 MG TABLET PO SCH (07:58)
[2019-12-02] MEDS: IBUPROFEN 400 MG TAB PO PRN ×2 (07:58→16:51)
[2019-12-02] MEDS: SODIUM CHLORIDE 0.9% 1,000 ML IV SCH ×2 (07:59→16:52)
[2019-12-02] MEDS: FAMOTIDINE 20 MG TAB PO SCH ×2 (09:16→20:08)
[2019-12-02] MEDS: LORazepam 2 MG/ML INJ IV PRN ×2 (15:41→20:08)
[2019-12-02] MEDS: THIAMINE 100 MG TAB PO SCH (16:51)
--- NOTE | 2019-12-02 21:26 | HP ---
HISTORY AND PHYSICAL CHIEF COMPLAINT: Abdominal pain, colitis, and rectal bleeding. HISTORY OF PRESENT ILLNESS: This is another admission for this 54-year-old white male alcoholic. He presented to the emergency room after three or four-day history of crampy abdominal pain with some hematochezia. He had no fever or chills. Workup in the emergency room suggested that he had colitis on his CT scan. There was also a possible lesion seen in his lung which was, for some reason, described as a possible Mycobacterium avium complex. He has had no cough, hemoptysis, shortness of breath. He does smoke heavily and drinks heavily. REVIEW OF SYSTEMS: He denies any neurologic problems, chest pain, hypertension, heart disease, palpitations, syncope, melena, hematemesis, dysuria, frequency, urgency, diabetes, etc. Past medical history, family history, personal and social history are otherwise unremarkable. He is not on any new medications. He continues to smoke and drink heavily. PHYSICAL EXAMINATION: Blood pressure 128/90 with a pulse of 70 and respirations of 32. He is afebrile. In general, he appeared to be slightly pale, disheveled, and in some mild discomfort. Skin is slightly pale, but lymph nodes were not enlarged. Head, ears, eyes, nose, mouth, and throat were normal. The chest was clear. Cardiac exam demonstrates sinus tachycardia and the abdomen was slightly protuberant, soft, and he has some generalized mild tenderness over the margin of lower abdomen. Bowel sounds are present. Extremities were normal. Neurologically he is intact. IMPRESSION: 1. Abdominal pain. 2. Hematochezia. 3. Alcoholism. 4. Chronic obstructive pulmonary disease. PLAN: 1. Bed rest. 2. IV fluids. 3. Monitor abdominal pain and rectal bleeding with possible endoscopy. MMODL / IJN: [id number] /
--- NOTE | 2019-12-02 23:14 | P.CONS ---
History of Present Illness - Reason for Consult Consult date: 12/02/19 MARLO and colitis Requesting physician: Scotty Arevalo - Chief Complaint abd pain and diarrhea x few days - History of Present Illness Patient is a 54-year-old male presenting to the ER at [facility] this morning with chief complaints of abdominal pain that has been going on for the last few days patient described the pain to be more lower abdominal area around a bandlike pain is more of a colicky to sharp intensity almost 7- 8 out of 10 with no significant radiation patient did have associated vomiting with multiple episodes of vomiting as well as diarrhea few episodes today with no blood or mucus in the stool denies high-grade fever with the symptom had the patient was evaluated by the ER physician on arrival to the ER the patient has been afebrile patient white count normal urine negative serum alcohol of [address] of abdominal pelvis was completed which was read by the radiologist as a chronic opacity right middle lobe unchanged and inflammatory changes of the descending and transverse colon patient did receive a dose of Zithromax with the radiology reporting capacity in the leg is possible in mind that prompted this infectious disease consultation, patient do have a cough which is chronic for him because of his smoking denies any recent worsening or any sputum production hemoptysis and no significant chest pain or worsening shortness of breath. Review of Systems Positive point has been mentioned in HPI rest of the systems are negative Past Medical History Past Medical History: COPD, GERD/Reflux, Pneumonia, Seizure Disorder, Syncope Additional Past Medical History / Comment(s): Severe ETOH abuse, alcohol withdrawal seizures/DTs, aspiration pneumonia, encephalopathy d/t alcohol, falls, thrombocytopenia, mastoiditis with surgery, chronic SOB. History of Any Multi-Drug Resistant Organisms: None Reported Past Surgical History: Ear Surgery, Tonsillectomy Additional Past Surgical History / Comment(s): Bilateral mastoidectomies, sinus surgery and vocal cord scraping. Past Anesthesia/Blood Transfusion Reactions: No Reported Reaction Past Psychological History: Anxiety, Bipolar, Depression Additional Psychological History / Comment(s): Pt lives with his girlfriend. He uses no assistive device. He does not have a license d/t [employer]. 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 Smoking Status: Current every day smoker Past Alcohol Use History: Abuse, Daily, Heavy Additional Past Alcohol Use History / Comment(s): Pt started smoking in 1979 and is a ppd smoker. He drinks 1/5 vodka a day and last drank 03/23/19 Past Drug Use History: Marijuana Additional Drug Use History / Comment(s): pt refused smoking cessation information. - Past Family History Father Family Medical History: Cancer Additional Family Medical History / Comment(s): Father was a stomach cancer survivor. He of spinal stenosis at the age of 88yrs. Mother Family Medical History: Hyperlipidemia Additional Family Medical History / Comment(s): Mother is living and is 85 yrs old. Brother(s) Additional Family Medical History / Comment(s): Bipolar, schizoprenia Medications and Allergies Home Medications Medication Instructions Recorded Confirmed Type Albuterol Nebulized [Ventolin 3 ml INHALATION RT-TID PRN 12/02/19 12/02/19 History Nebulized] Omeprazole [PriLOSEC] 20 mg PO DAILY 12/02/19 12/02/19 History Allergies Allergy/AdvReac Type Severity Reaction Status Date / Time No Known Allergies Allergy Verified 12/02/19 07:33 Physical Exam Vitals: Vital Signs Temp Pulse Pulse Resp BP BP Pulse Ox 12/02/19 18:42 99.6 F 65 14 134/77 97 12/02/19 16:00 62 17 12/02/19 15:00 98.2 F 62 17 150/83 95 12/02/19 13:33 65 16 100 12/02/19 11:39 78 16 120/92 97 12/02/19 08:00 98.4 F 76 18 118/74 98 12/02/19 06:35 98.7 F 73 16 113/81 95 12/02/19 04:34 72 18 110/72 98 12/02/19 03:22 120 H 18 110/67 97 12/02/19 03:20 98.3 F Intake and Output 12/02/19 12/02/19 12/03/19 14:59 22:59 06:59 Intake Total 800 Balance 800 Intake: Intake, IV Titration 800 Amount Sodium Chloride 0.9% 1, 800 000 ml @ 100 mls/hr IV . Q10H [facility] Rx#:[id number] Other: Voiding Method Urinal Weight 79.379 kg GENERAL DESCRIPTION: Middle-aged male lying in bed, no distress. No tachypnea or accessory muscle of respiration use. HEENT: Shows Pallor , no scleral icterus. Oral mucous membrane is dry. NECK: Trachea central, no thyromegaly. LUNGS: Unlabored breathing. Decreased intensity of breath sounds. No wheeze or crackle. HEART: S1, S2, regular rate and rhythm. ABDOMEN: Soft, mild lower abdominal tenderness ,no guarding or rigidity EXTREMITIES: No edema of feet. SKIN: No rash, no masses palpable. NEUROLOGICAL: The patient is awake, alert, oriented x3, mood and affect normal. Results CBC & Chem 7: 12/02/19 03:34 12/02/19 03:34 Labs: Abnormal Lab Results - Last 24 Hours (Table) 12/02/19 12/02/19 Range/Units 03:34 03:34 RBC 3.96 L (4.30-5.90) m/uL Hgb 8.5 L (13.0-17.5) gm/dL Hct 29.3 L (39.0-53.0) % MCV 74.1 L (80.0-100.0) fL MCH 21.6 L (25.0-35.0) pg MCHC 29.1 L (31.0-37.0) g/dL RDW 20.4 H (11.5-15.5) % Sodium 134 L (137-145) mmol/L Carbon Dioxide 20 L (22-30) mmol/L BUN 7 L (9-20) mg/dL AST 111 H (17-59) U/L Total Protein 8.6 H (6.3-8.2) g/dL Lipase 305 H (23-300) U/L Serum Alcohol 228 H* mg/dL Assessment and Plan Assessment: 1-patient presented to the hospital with abdominal pain nausea vomiting and diarrhea this patient who did have evidence of colitis involving descending and the transverse colonic will need to cover for the enteric gram-negative pathogen underlying C. difficile less likely but not entirely excluded. 2-patient with abnormal CT which mentioned chronic right middle lobe opacity which apparently has not changed from a previous CT in this patient with no fever night sweats or chronic cough or any history of immunodeficiency making a MARLO to be less likely but not entirely excluded. (1) Abnormal CT scan, chest Current Visit: Yes Status: Acute Code(s): R93.89 - ABNORMAL FINDINGS ON DX IMAGING OF OTH BODY STRUCTURES SNOMED Code(s): 409019410 (2) Colitis Current Visit: Yes Status: Acute Code(s): K52.9 - NONINFECTIVE GASTROENTERITIS AND COLITIS, UNSPECIFIED SNOMED Code(s): 13166639 Plan: 1-we will obtain a stool culture and stool for C. difficile 2-we will request sputum AFB daily x3 for MARLO 3-we will also obtain ESR CRP and HIV test 4-we will empirically add Unasyn 3 g every 6 hours to cover for the colitis 5-gentle IV fluid We will follow on clinical condition and cultures to further adjust medication if needed Thank you for this consultation we will follow the patient along with you Time with Patient: Greater than 30
[2019-12-03] MEDS: LORazepam 2 MG/ML INJ IV PRN ×8 (00:12→23:25)
[2019-12-03] MEDS: AMPICILLIN-SULBACTAM 3 GM in SODIUM CHLORIDE 0.9% 100 ML IVPB SCH ×5 (00:12→23:25)
[2019-12-03] MEDS: SODIUM CHLORIDE 0.9% 1,000 ML IV SCH ×3 (00:12→23:30)
[2019-12-03] MEDS: IBUPROFEN 400 MG TAB PO PRN ×2 (00:18→20:02)
[2019-12-03] MEDS: PANTOPRAZOLE 40 MG TABLET PO SCH (08:06)
[2019-12-03] MEDS: THIAMINE 100 MG TAB PO SCH ×2 (08:06→18:24)
[2019-12-03] MEDS: FAMOTIDINE 20 MG TAB PO SCH ×2 (08:06→21:06)
[2019-12-03 08:31] LABS: Anisocytosis Moderate; Basophils # (A) 0.1 k/uL (0-0.2); Basophils % (A) 1 %; Eosinophils # (A) 0.1 k/uL (0-0.7); Eosinophils % (A) 1 %; HCT 27.9 % (39.0-53.0); HGB 8.1 gm/dL (13.0-17.5); Hypochromasia Marked; Lymphocytes # (A) 0.8 k/uL (1.0-4.8); Lymphocytes % (A) 14 %; MCHC 29.1 g/dL (31.0-37.0); MCV 75.4 fL (80.0-100.0); Mean Platelet Volume 7.8; Microcytosis Moderate; Monocytes # (A) 0.4 k/uL (0-1.0); Monocytes % (A) 6 %; Neutrophils # (A) 4.2 k/uL (1.3-7.7); Neutrophils % (A) 76 %; Platelet Count 233 k/uL (150-450); RDW 20.8 % (11.5-15.5); WBC 5.5 k/uL (3.8-10.6)
[2019-12-03 08:44] LABS: African American GFR (CKD) >90 (>60 ml/min/1.73 sqM); Anion Gap 8 mmol/L; Blood Urea Nitrogen 9 mg/dL (9-20); Calcium 8.7 mg/dL (8.4-10.2); Carbon Dioxide 24 mmol/L (22-30); Chloride 104 mmol/L (98-107); Glucose 75 mg/dL (74-99); Non-African American GFR(CKD) >90 (>60 ml/min/1.73 sqM); Potassium 3.9 mmol/L (3.5-5.1); Sodium 136 mmol/L (137-145)
[2019-12-03] MEDS ORDERED: NON FORMULARY DRUG (Omeprazole 20 MG) PO SCH (09:00)
[2019-12-03 09:31] LABS: C Reactive Protein <5.0 mg/L (<10.0)
[2019-12-03] MEDS: ALBUTEROL NEBULIZED 2.5 MG/3 ML INHALATION PRN (10:43)
[2019-12-03 12:00] LABS: Erythrocyte Sedimentation Rate 22 mm/hr (0-15)
[2019-12-03] MEDS: ACETAMINOPHEN TAB 325 MG TAB PO PRN (15:40)
[2019-12-03 17:33] LABS: HIV 1 AB Non-Reactive (Non-Reactive); HIV 2 AB Non-Reactive (Non-Reactive); HIV AB P24 Non-Reactive (Non-Reactive); HIV P24 AG Non-Reactive (Non-Reactive)
--- NOTE | 2019-12-03 18:31 | PN ---
PROGRESS NOTE DATE OF SERVICE: 12/03/2019 CHIEF COMPLAINT: Abdominal pain and alcoholism. HISTORY OF PRESENT ILLNESS: This gentleman is still having some abdominal discomfort. His workup is underway. He has had no further vomiting. He has started to become tremulous. PHYSICAL EXAMINATION: He is slightly pale. Head, ears, eyes, nose, mouth, and throat are normal. The chest is clear. Cardiac exam is normal. He is still a little tender on the right side of the abdomen. Bowel sounds are present. IMPRESSION: 1. Abdominal pain, etiology unknown. 2. ? mycoplasma avium complex. 3. Alcoholism. 4. Chronic obstructive pulmonary disease. 5. Impending delirium tremens. PLAN: Continue with current program and he is being followed by Pulmonology. He will be watched for DTs. GI workup continues. MMODL / IJN: [id number] /
--- NOTE | 2019-12-03 21:03 | PN ---
PROGRESS NOTE DATE OF SERVICE: 12/03/2019 REASON FOR FOLLOWUP: 1. Colitis. 2. Abnormal CT of the chest with a question of . INTERVAL HISTORY: The patient is currently afebrile, has been breathing comfortably. Denies having any chest pain or shortness of breath. No worsening cough. The patient's abdominal pain has slightly decreased in intensity. No further nausea or vomiting. He denies having any diarrhea. PHYSICAL EXAMINATION: Blood pressure 132/71 with a pulse of 71, temperature of 98.3. He is 96% on room air. General description is a middle-aged male lying in bed in no distress. RESPIRATORY SYSTEM: Unlabored breathing. Clear to auscultation anteriorly. HEART: S1, S2. Regular rate and rhythm. ABDOMEN: Soft. No tenderness. LABS: Stool for C difficile came back negative. HIV test came back negative. CRP is less than 5. Sedimentation rate of 22. Hemoglobin 8.1, white count 5.5. DIAGNOSTIC IMPRESSION AND PLAN: Patient admitted to hospital with abdominal pain in this patient who did have a region of colitis on the CT which also raises the possibility of . However, the patient is currently with no elevated sedimentation rate or CRP. No chronic cough or sputum, making to be less likely. His symptoms are predominantly GI and possible colitis with a question of infectious. Clinically responding to Unasyn; to be continued while waiting for sputum culture to finalize. Continue with supportive care. MMODL / IJN: [id number] /
[2019-12-04] MEDS: LORazepam 2 MG/ML INJ IV PRN ×6 (01:56→22:48)
[2019-12-04] MEDS: AMPICILLIN-SULBACTAM 3 GM in SODIUM CHLORIDE 0.9% 100 ML IVPB SCH ×3 (05:02→17:51)
[2019-12-04] MEDS: FAMOTIDINE 20 MG TAB PO SCH ×2 (08:34→21:21)
[2019-12-04] MEDS: THIAMINE 100 MG TAB PO SCH ×2 (08:34→17:51)
[2019-12-04] MEDS: PANTOPRAZOLE 40 MG TABLET PO SCH (08:34)
[2019-12-04] MEDS: ALBUTEROL NEBULIZED 2.5 MG/3 ML INHALATION PRN ×2 (11:52→16:12)
[2019-12-04] MEDS: SODIUM CHLORIDE 0.9% 1,000 ML IV SCH (12:12)
[2019-12-04] MEDS: IBUPROFEN 400 MG TAB PO PRN (21:21)
--- NOTE | 2019-12-04 22:04 | PN ---
PROGRESS NOTE CHIEF COMPLAINT: Right-sided abdominal pain. HISTORY OF PRESENT ILLNESS: This gentleman is complaining of some shortness of breath. He has had no chest pain, fever, cough, sputum production, etc. He is a little bit tremulous, but has not gone into ralph DTs. He is still having some right-sided abdominal pain. PHYSICAL EXAMINATION: Chest is clear. Cardiac exam is normal. He is tender in the right side of the abdomen. Bowel sounds are present. There are no masses. IMPRESSION: 1. Right-sided colitis ? 2. Alcoholism. 3. Delirium tremens. PLAN: 1. Continue to follow for DTs. 2. Consult with Gastroenterology for right-sided abdominal pain. MMODL / IJN: [id number] /
[2019-12-04] MEDS: ACETAMINOPHEN TAB 325 MG TAB PO PRN (22:52)
--- NOTE | 2019-12-05 01:44 | CONS ---
CONSULTATION DATE OF DICTATION: 12/04/2019 REASON FOR CONSULTATION: Abdominal pain and diarrhea for the last few days duration. HISTORY OF PRESENT ILLNESS: The patient is a 54-year-old pleasant white male came to the emergency room 2 days ago when he presented with severe abdominal pain mostly in the lower abdominal area associated with some diarrhea. The patient states that he has been having these symptoms on and off for the last 3 weeks duration. He was admitted to the hospital about 3 weeks ago for similar symptoms associated with nausea, vomiting. He had a CT of the abdomen and pelvis done at that time in September of 2019 that showed a mild hepatic steatosis but it was otherwise unremarkable. Patient said that he was treated symptomatically and was discharged home. He came back to the emergency room yesterday complaining of more abdominal pain mostly localized to the lower abdominal area associated with altered bowel movements. For a few days he had diarrhea and a couple of days of maroon colored stools that happened about a week ago. Since then, he has been having alternating diarrhea and constipation. He came back to the emergency room yesterday and had a CT of the abdomen and pelvis done again that showed thickening of the ascending and transverse colon consistent with infectious versus inflammatory colitis. The patient was started on antibiotics and Dr. Yu was consulted. He is feeling better today. He had only two bowel movements with no bleeding today. No nausea, vomiting. On a regular diet, tolerating well. No fever, chills, night sweats. No family history of inflammatory bowel disease. PAST MEDICAL HISTORY: The past medical history is significant for hypertension, alcohol abuse, gastroesophageal reflux disease, asthma. MEDICATIONS: At home, omeprazole, albuterol. ALLERGIES: None. SOCIAL HISTORY: Heavy alcohol abuse and chronic smoker. FAMILY HISTORY: Unremarkable. REVIEW OF SYMPTOMS: Cardiopulmonary: No chest pain or shortness of breath. : No dysuria or hematuria. MUSCULOSKELETAL unremarkable. SKIN unremarkable. ENDOCRINE unremarkable. PSYCHIATRIC unremarkable. NEUROLOGY unremarkable. ENT/vision unremarkable. CONSTITUTIONAL: No recent weight loss. No fever, chills, night sweats. PAST SURGICAL HISTORY: Ear surgery and tonsillectomy. FAMILY HISTORY: Father had stomach cancer and mother has hyperlipidemia. PHYSICAL EXAMINATION: He appears comfortable. No apparent distress. VITAL SIGNS: Stable. Blood pressure is 112/86, pulse rate 82 per minute and afebrile. HEENT examination unremarkable. Conjunctivae pink. Sclerae anicteric. Oral cavity no lesions. NECK: No JVD or lymph node enlargement. CHEST: Clear to auscultation. HEART: Regular rate and rhythm. ABDOMEN: Soft. Bowel sounds are positive. No organomegaly. There was minimal tenderness in the right lower quadrant area. EXTREMITIES: No pedal edema. SKIN: No rashes. NEUROLOGIC: Alert and oriented x3. No focal deficits. LABS: Done at the time of admission to the hospital: WBC of 13.5, hemoglobin 7.1, platelets are 229, MCV 77.7. AST and ALT are 111 and 33 respectively. T-bilirubin and alkaline phosphatase are within normal limits. Labs from today hemoglobin is 8.1, MCV 75, WBC 5.5. Sedimentation rate is 22. Serum alcohol level at the time of admission to the hospital was 228. C difficile toxin is negative. IMPRESSION: 1. This is a patient who presents with lower abdominal pain with intermittent diarrhea and rectal bleeding on and off for the last few days duration, noted to have CT of the abdomen and pelvis done that showed thickening of ascending and transverse colon consistent with colitis. He was started on broad-spectrum antibiotics and his symptoms have significantly improved. Presently on a regular diet, tolerating well. The diarrhea has resolved. 2. Microcytic hypochromic anemia suggestive of iron deficiency more than likely related to chronic occult gastrointestinal blood loss. The patient has no history of EGD or colonoscopy in the past. RECOMMENDATIONS: 1. Continue with broad-spectrum antibiotics. 2. I recommended an EGD and colonoscopy as a part of workup of microcytic hypochromic anemia. In the meantime, I have requested for iron studies. The patient elects to have this procedure done on an outpatient basis and this can be arranged at the time of discharge from the hospital. I will continue to follow the patient during this hospital stay. Thank you for this consultation. MMODL / IJN: [id number] /
[2019-12-05] MEDS: SODIUM CHLORIDE 0.9% 1,000 ML IV SCH ×3 (01:56→18:49)
[2019-12-05] MEDS: AMPICILLIN-SULBACTAM 3 GM in SODIUM CHLORIDE 0.9% 100 ML IVPB SCH ×5 (01:57→23:47)
[2019-12-05] MEDS: LORazepam 2 MG/ML INJ IV PRN ×6 (01:58→21:58)
[2019-12-05] MEDS: ALBUTEROL NEBULIZED 2.5 MG/3 ML INHALATION PRN ×4 (07:53→21:17)
[2019-12-05] MEDS: THIAMINE 100 MG TAB PO SCH ×2 (08:47→18:49)
[2019-12-05] MEDS: PANTOPRAZOLE 40 MG TABLET PO SCH (08:47)
[2019-12-05] MEDS: FAMOTIDINE 20 MG TAB PO SCH ×2 (08:47→20:18)
[2019-12-05 10:37] LABS: % Iron Saturation 1.04 (15.00-50.00); Ferritin 13.5 ng/mL (22.0-322.0)
[2019-12-05] MEDS ORDERED: PEG 3350-NA SULF,BICARB,CL/KCL 4,000 ML BOTTLE PO ONE (15:00)
--- NOTE | 2019-12-05 19:59 | PN ---
PROGRESS NOTE CHIEF COMPLAINT: Abdominal pain, alcoholism and DTs. HISTORY OF PRESENT ILLNESS: This gentleman is doing well. His right-sided pain is almost gone. He is being seen by Gastroenterology and they are planning on doing a colonoscopy tomorrow. He seems to be awake, alert, and to have avoided DTs. PHYSICAL EXAMINATION: Remains pale. CHEST: Clear. Cardiac exam is normal. Abdomen is soft. He is a little bit tender in the right side of the abdomen, but there are no masses or visceromegaly. Bowel sounds are present. IMPRESSION: 1. Right-sided abdominal pain, etiology unknown. 2. Alcoholism. 3. Possible impending delirium tremens. PLAN: Continue with current program with increased activity and tomorrow he will have a colonoscopy. If this goes well, he can go home after that. MMODL / IJN: [id number] /
--- NOTE | 2019-12-05 20:23 | PN ---
PROGRESS NOTE DATE OF SERVICE: December 05, 2019 The patient is a 54-year-old white male admitted to the hospital with abdominal pain and CT scan showed evidence of colitis involving the right colon and transverse colon. He has been on antibiotics and symptoms are improving. He was also noted to have microcytic hypochromic anemia and iron indices were done yesterday which revealed iron deficiency anemia. The patient denies any new symptoms. PHYSICAL EXAMINATION: He appears comfortable. No apparent distress. VITAL SIGNS: Stable. Blood pressure is 163/85, pulse rate of 56, temperature 98.2. HEENT: Examination unremarkable. Sclerae anicteric. Oral cavity no lesions. NECK: No JVD or lymph node enlargement. CHEST: Clear to auscultation. CARDIAC: Heart regular rate and rhythm. ABDOMEN: Soft. It was nontender, nondistended. Bowel sounds are positive. No organomegaly. EXTREMITIES: No pedal edema. SKIN: No rashes. NEUROLOGICAL: He is alert and oriented x3. No focal deficits. LABORATORY DATA: WBC 5.5, hemoglobin 8.1, MCV 75, platelets normal. Iron showed an iron of 4, TIBC 385, iron saturation 1% and 13%. IMPRESSION: 1. Iron deficiency anemia with clinically, no evidence of active ongoing bleeding most likely related to occult GI blood loss. The patient never had a colonoscopy in the past. 2. Acute abdominal pain with diarrhea for the last few days. CT scan showed thickening of the ascending and transverse colon, on empiric antibiotics for infectious colitis, he is gradually improving. Stool for Clostridium difficile toxin was negative. 3. History of alcohol abuse. RECOMMENDATIONS: 1. Continue with antibiotics. 2. Clear liquid diet. 3. Proceed with EGD and colonoscopy tomorrow. Discussed with the patient the risks, benefits, and complications of the procedure and he is agreeable to it. Thank you for this consultation. MMODL / IJN: [id number] /
--- NOTE | 2019-12-05 23:00 | PN ---
PROGRESS NOTE DATE OF SERVICE: 12/05/2019. REASON FOR FOLLOW UP: 1. Colitis. 2. Abnormal CT of the chest. INTERVAL HISTORY: The patient is currently afebrile. Patient has been breathing comfortably. Not really a good historian. When asked specifically how often he has to go to the bathroom for diarrhea. He says he has it but would not want commit to how many times he has to go to the bathroom. The patient's abdominal pain seemed to have improve. No chest pain or shortness of breath. Did have a cough. Currently complaining about anxiety attack. PHYSICAL EXAMINATION: Blood pressure 150/72 with a pulse of 67, temperature 98.2. He is 95% on room air. General description is a middle-aged male lying in bed in no distress. Respiratory system: Unlabored breathing clear to auscultation anteriorly heart S1, S2. Regular rate and rhythm. No tenderness. LABS: Hemoglobin 8.1, white count 5.5. Stool culture has been negative. Sputum negative so far. Stains negative. Culture pending. DIAGNOSTIC IMPRESSION AND PLAN: 1. Patient admitted to the hospital with complaints of abdominal pain diarrhea, in this patient who did have evidence of colitis almost daily. Question of ischemic versus infectious. Stool culture currently eupeptic evidence of colitis on the CT, question of full ischemic versus infectious. Stool cultures currently pending. Patient responded Unasyn to continue finish therapy with oral Augmentin. 2. Abnormal CT with concern for possible anemia. Sputum cultures currently pending. Clinical suspicion is low. Hence will hold on any further antibiotic at this point. MMODL / IJN: [id number] /
[2019-12-06] MEDS: SODIUM CHLORIDE 0.9% 1,000 ML IV SCH (02:01)
[2019-12-06] MEDS: LORazepam 2 MG/ML INJ IV PRN ×2 (03:31→06:01)
[2019-12-06] MEDS: AMPICILLIN-SULBACTAM 3 GM in SODIUM CHLORIDE 0.9% 100 ML IVPB SCH (05:19)
[2019-12-06] MEDS ORDERED: IV FLUID CONTINUATION 300 ML IV ONE (06:58)
[2019-12-06] MEDS ORDERED: LIDOCAINE 1% INJ 10MG/ML (20 ML MDV) ONE (07:01)
[2019-12-06] MEDS ORDERED: PROPOFOL 10 MG/ML 20 ML VIAL IV ONE (07:01)
--- NOTE | 2019-12-06 07:28 | P.PCN ---
Date of Procedure: 12/06/19 Procedure(s) Performed: Brief history: Patient is a pleasant 54-year-old white male admitted hospital with abdominal pain and diarrhea for the last few days duration. CT of abdomen showed thickening of the right and colon as well as transverse colon and patient has been on empiric antibiotics for possible infectious colitis. He was also noted to have iron deficiency anemia with a hemoglobin of 8.1 g/dL. His and scheduled for an upper endoscopy as well as colonoscopy to evaluate further. Procedure performed: Esophagogastroduodenoscopy with biopsy Colonoscopy Preoperative diagnosis: iron deficiency anemia Lower abdominal pain and diarrhea/possible colitis Anesthesia: MAC Procedure: After informed consent was obtained from the patient was brought into the endoscopy unit and IV sedation was administered by anesthesia under continuous monitoring. Initially upper endoscopy was done. The Olympus GF 160 video endoscope was inserted inserted into the mouth and esophagus intubated without any difficulty and was gradually advanced into the stomach and duodenum and carefully examined. The second part of the duodenum appeared normal. In the bulb of the duodenum there was a 5-6 cm ulcer with no active bleeding. The scope was then withdrawn into the stomach adequately insufflated with air and upon careful examination the antrum had mild gastritis and biopsies were done from this area. The body, cardia and fundus appeared normal. The scope was then withdrawn into the esophagus. The GE junction was located at 40 cm to the incisors. It appeared regular with no erythema erosions or ulcerations. Rest of the esophagus appeared normal. Patient tolerated the procedure well. At this time the patient continued to remain sedation. Initial digital rectal examination was normal. Olympus CF 160 video colonoscope was then inserted into the rectum and gradually advanced to the cecum without any difficulty. Careful examination was performed as the scope was gradually being withdrawn. The prep was excellent. The cecum, ascending colon, transverse colon, descending colon, sigmoid colon and rectum appeared normal. Retroflexion was performed in the rectugrade 2 internal hemorrhoids were noted. Patient tolerated the procedure well. Impression: 1. Upper endoscopy revealed a 5-6 mm duodenal bulbar ulcer with no active bleeding and mild antral gastritis 2. Colonoscopy was essentially within normal limits with no evidence of colitis or colorectal neoplasia. Grade 2 internal hemorrhoids seen. Recommendations: Findings of this examination were discussed with the patient. He will continue Protonix 40 mg daily. Diet will be advanced as tolerated. Start iron sup plements twice daily.
[2019-12-06 08:32] VITALS: BP 145/79; PULSE 73; RESP 18; TEMP 98.6
[2019-12-06] MEDS: PANTOPRAZOLE 40 MG TABLET PO SCH (08:55)
[2019-12-06] MEDS: THIAMINE 100 MG TAB PO SCH (08:55)
[2019-12-06] MEDS: FAMOTIDINE 20 MG TAB PO SCH (08:55)
[2019-12-06 10:50] LABS: Anisocytosis Moderate; Basophils # (A) 0.1 k/uL (0-0.2); Basophils % (A) 1 %; Eosinophils # (A) 0.1 k/uL (0-0.7); Eosinophils % (A) 1 %; HCT 25.2 % (39.0-53.0); HGB 7.2 gm/dL (13.0-17.5); Hypochromasia Marked; Lymphocytes # (A) 0.6 k/uL (1.0-4.8); Lymphocytes % (A) 8 %; MCH 21.2 pg (25.0-35.0); MCHC 28.5 g/dL (31.0-37.0); MCV 74.4 fL (80.0-100.0); Mean Platelet Volume 8.4; Microcytosis Marked; Monocytes # (A) 0.9 k/uL (0-1.0); Monocytes % (A) 11 %; Neutrophils # (A) 6.1 k/uL (1.3-7.7); Neutrophils % (A) 77 %; Platelet Count 203 k/uL (150-450); RBC 3.39 m/uL (4.30-5.90); RDW 22.2 % (11.5-15.5)
--- NOTE | 2019-12-06 17:11 | DS ---
DISCHARGE SUMMARY DATE OF SERVICE: 12/06/2019 CHIEF COMPLAINT: Abdominal pain, alcoholism and DTs. HISTORY OF PRESENT ILLNESS AND PHYSICAL EXAMINATION: Details of this man's history and physical can be found in the initial workup. LABORATORY STUDIES: While he was in the hospital, he had laboratory studies, details of which can be found in the laboratory section of his chart. COURSE IN THE HOSPITAL: After admission, he placed on bedrest, started on intravenous fluids and analgesia for his right-sided abdominal pain. He was watched for DTs. He did become tremulous, but did go into ralph DTs. He continued to have right-sided abdominal pain. He was referred to Gastroenterology. They took him to the endoscopic suite for upper and lower GI endoscopies and found a duodenal ulcer. Right after the procedure was performed, the patient went back to the floor and then signed himself out AGAINST MEDICAL ADVICE. He was discharged without any prescriptions, instructions, follow-up appointment, etc. We will contact him and have him come into the office in the next several days. FINAL DIAGNOSES: 1. Right-sided abdominal pain. 2. Chronic alcoholism. 3. Acute alcohol intoxication. 4. Delirium tremens. 5. Duodenal peptic ulcer disease. OPERATIONS: Upper and lower GI endoscopies. CONSULTATION: Gastroenterology. He is improved. MMODL / IJN: [id number] /
== END 2019-12-06 11:06 | disposition left against medical advice (07) | DRG 378 ==
LOC: EC 03:20 → 6NMEDSUR 07:19 → 4SSUR 14:56 → OBSVTOIN 12-04 09:29
PROVIDERS: ADMIT Family Medicine; ATTEND Family Medicine
PROC: 0DJD8ZZ Inspection of Lower Intestinal Tract, Via Natural or Artificial Opening Endoscopic (ICD-10-PCS; 2019-12-06)
PROC: 0DB78ZX Excision of Stomach, Pylorus, Via Natural or Artificial Opening Endoscopic, Diagnostic (ICD-10-PCS; principal; 2019-12-06 07:00)
DX: K26.4 Chronic or unspecified duodenal ulcer with hemorrhage (principal); F10.239 Alcohol dependence with withdrawal, unspecified; K29.71 Gastritis, unspecified, with bleeding; K76.0 Fatty (change of) liver, not elsewhere classified; J44.9 Chronic obstructive pulmonary disease, unspecified; F32.9 Major depressive disorder, single episode, unspecified; G40.909 Epilepsy, unspecified, not intractable, without status epilepticus; K21.9 Gastro-esophageal reflux disease without esophagitis; F41.9 Anxiety disorder, unspecified; F17.210 Nicotine dependence, cigarettes, uncomplicated; F10.220 Alcohol dependence with intoxication, uncomplicated; I10 Essential (primary) hypertension; D50.9 Iron deficiency anemia, unspecified; R91.8 Other nonspecific abnormal finding of lung field; K64.1 Second degree hemorrhoids; R19.7 Diarrhea, unspecified; K42.9 Umbilical hernia without obstruction or gangrene; Y90.7 Blood alcohol level of 200-239 mg/100 ml; Z79.899 Other long term (current) drug therapy; Z87.01 Personal history of pneumonia (recurrent); Z86.19 Personal history of other infectious and parasitic diseases; Z98.890 Other specified postprocedural states; Z80.0 Family history of malignant neoplasm of digestive organs; Z81.8 Family history of other mental and behavioral disorders; Z82.69 Family history of other diseases of the musculoskeletal system and connective tissue; Z83.438 Family history of other disorder of lipoprotein metabolism and other lipidemia
CPT/HCPCS: 36415; 43239; 74177; 80048; 80053; 80320; 81003; 82150; 82728; 83540; 83550; 83690; 84484; 85025; 85652; 86140; 87045; 87046; 87070; 87116; 87205; 87206; 87324; 87390; 88305; 93005; 94640; 96361; 96372; 96374; 99285

== ENCOUNTER 2020-01-07 12:44 | Inpatient (IN) | payer OTHER ==
[2020-01-07] MEDS ORDERED: PANTOPRAZOLE 40 MG/10 ML VIAL IVP STA (13:08)
[2020-01-07] MEDS ORDERED: METOCLOPRAMIDE 5 MG/ML 2 ML VIAL IVP STA (13:08)
[2020-01-07] MEDS ORDERED: SODIUM CHLORIDE 0.9% 1,000 ML IV STA (13:08)
--- NOTE | 2020-01-07 13:11 | ED ---
General Adult HPI - General Chief complaint: Abdominal Pain Stated complaint: Anxiety Time Seen by Provider: 01/07/20 12:54 Source: patient, EMS, RN notes reviewed Mode of arrival: EMS Limitations: no limitations - History of Present Illness Initial comments: Patient is a pleasant 54-year-old male presenting to the emergency department several complaints. Patient complains of dizziness and lightheadedness. Patient also has abdominal discomfort. Patient also has nausea. Patient states symptoms are somewhat chronic and have been occurring for months. Last time he saw his doctor his doctor told him he could admit him for alcohol withdrawal. Patient does admit to drinking alcohol, approximately a fifth of vodka daily. - Related Data Home Medications Medication Instructions Recorded Confirmed Albuterol Nebulized [Ventolin 3 ml INHALATION RT-TID PRN 12/02/19 12/02/19 Nebulized] Omeprazole [PriLOSEC] 20 mg PO DAILY 12/02/19 12/02/19 Allergies Allergy/AdvReac Type Severity Reaction Status Date / Time No Known Allergies Allergy Verified 12/02/19 07:33 Review of Systems ROS Statement: Those systems with pertinent positive or pertinent negative responses have been documented in the HPI. ROS Other: All systems not noted in ROS Statement are negative. Constitutional: Denies: fever Eyes: Denies: eye pain ENT: Denies: ear pain Respiratory: Denies: cough Cardiovascular: Denies: chest pain Endocrine: Reports: fatigue Gastrointestinal: Reports: abdominal pain, nausea, vomiting Genitourinary: Denies: dysuria Musculoskeletal: Denies: back pain Skin: Denies: rash Neurological: Reports: vertigo. Denies: weakness, confusion Psychiatric: Reports: anxiety Past Medical History Past Medical History: COPD, GERD/Reflux, Pneumonia, Seizure Disorder, Syncope Additional Past Medical History / Comment(s): Severe ETOH abuse, alcohol with drawal seizures/DTs, aspiration pneumonia, encephalopathy d/t alcohol, falls, thrombocytopenia, mastoiditis with surgery, chronic SOB. History of Any Multi-Drug Resistant Organisms: None Reported Past Surgical History: Ear Surgery, Tonsillectomy Additional Past Surgical History / Comment(s): Bilateral mastoidectomies, sinus surgery and vocal cord scraping. Past Anesthesia/Blood Transfusion Reactions: No Reported Reaction Past Psychological History: Anxiety, Bipolar, Depression Smoking Status: Current every day smoker Past Alcohol Use History: Abuse, Daily, Heavy Past Drug Use History: Marijuana - Past Family History Father Family Medical History: Cancer Additional Family Medical History / Comment(s): Father was a stomach cancer survivor. He of spinal stenosis at the age of 88yrs. Mother Family Medical History: Hyperlipidemia Additional Family Medical History / Comment(s): Mother is living and is 85 yrs old. Brother(s) Additional Family Medical History / Comment(s): Bipolar, schizoprenia General Exam Limitations: no limitations General appearance: alert, in no apparent distress Head exam: Present: normocephalic Eye exam: Present: normal appearance, PERRL, EOMI ENT exam: Present: normal oropharynx Neck exam: Present: normal inspection Respiratory exam: Present: normal lung sounds bilaterally Cardiovascular Exam: Present: regular rate, normal rhythm GI/Abdominal exam: Present: soft. Absent: tenderness Extremities exam: Present: normal inspection. Absent: pedal edema, calf tenderness Neurological exam: Present: alert, oriented X3, CN II-XII intact. Absent: motor sensory deficit Expanded Motor strength exam: RUE: 5, LUE: 5, RLE: 5, LLE: 5 Psychiatric exam: Present: normal affect, normal mood Skin exam: Present: normal color, other (Tobacco stained fingers) Course Vital Signs 01/07/20 01/07/20 01/07/20 12:46 14:01 14:24 Temperature 98.1 F Pulse Rate 76 77 Respiratory 18 18 17 Rate Blood Pressure 129/86 130/83 O2 Sat by Pulse 97 98 Oximetry 01/07/20 15:30 Temperature Pulse Rate 79 Respiratory 18 Rate Blood Pressure 139/91 O2 Sat by Pulse 99 Oximetry EKG Findings - EKG Comments: EKG Findings:: Normal sinus rhythm 97. IN 164. QRS QT 36. QTc 464 right axis. Inferior Q waves. No acute ST change. Medical Decision Making - Medical Decision Making Patient reevaluated and updated. Patient is requesting admission. Case discussed with Dr. Arevalo, who will admit his patient. - Lab Data Result diagrams: 01/07/20 13:20 01/07/20 13:20 Lab Results 01/07/20 01/07/20 01/07/20 Range/Units 13:20 13:20 13:20 WBC 5.4 (3.8-10.6) k/uL RBC 3.90 L (4.30-5.90) m/uL Hgb 8.8 L D (13.0-17.5) gm/dL Hct 29.6 L (39.0-53.0) % MCV 75.9 L (80.0-100.0) fL MCH 22.5 L (25.0-35.0) pg MCHC 29.7 L (31.0-37.0) g/dL RDW 19.5 H (11.5-15.5) % Plt Count 255 (150-450) k/uL Neutrophils % 70 % Lymphocytes % 18 % Monocytes % 6 % Eosinophils % 1 % Basophils % 1 % Neutrophils # 3.8 (1.3-7.7) k/uL Lymphocytes # 1.0 (1.0-4.8) k/uL Monocytes # 0.3 (0-1.0) k/uL Eosinophils # 0.1 (0-0.7) k/uL Basophils # 0.0 (0-0.2) k/uL Hypochromasia Marked Anisocytosis Slight Microcytosis Moderate PT 10.0 (9.0-12.0) sec INR 1.0 (<1.2) APTT 24.9 (22.0-30.0) sec Sodium 131 L (137-145) mmol/L Potassium 3.6 (3.5-5.1) mmol/L Chloride 93 L (98-107) mmol/L Carbon Dioxide 21 L (22-30) mmol/L Anion Gap 17 mmol/L BUN 6 L (9-20) mg/dL Creatinine 1.04 (0.66-1.25) mg/dL Est GFR (CKD-EPI)AfAm >90 (>60 ml/min/1.73 sqM) Est GFR (CKD-EPI)NonAf 82 (>60 ml/min/1.73 sqM) Glucose 119 H (74-99) mg/dL Calcium 9.3 (8.4-10.2) mg/dL Total Bilirubin 0.4 (0.2-1.3) mg/dL AST 198 H (17-59) U/L ALT 77 H (4-49) U/L Alkaline Phosphatase 80 (38-126) U/L Troponin I (0.000-0.034) ng/mL Total Protein 8.5 H (6.3-8.2) g/dL Albumin 4.6 (3.5-5.0) g/dL Amylase 66 (30-110) U/L Lipase 234 (23-300) U/L Urine Color Urine Appearance (Clear) Urine pH (5.0-8.0) Ur Specific [place] (1.001-1.035) Urine Protein (Negative) Urine Glucose (UA) (Negative) Urine Ketones (Negative) Urine Blood (Negative) Urine Nitrite (Negative) Urine Bilirubin (Negative) Urine Urobilinogen (<2.0) mg/dL Ur Leukocyte Esterase (Negative) Urine RBC (0-5) /hpf Urine WBC (0-5) /hpf Hyaline Casts (0-2) /lpf Urine Mucus (None) /hpf Serum Alcohol 142 mg/dL 01/07/20 01/07/20 Range/Units 13:20 14:24 WBC (3.8-10.6) k/uL RBC (4.30-5.90) m/uL Hgb (13.0-17.5) gm/dL Hct (39.0-53.0) % MCV (80.0-100.0) fL MCH (25.0-35.0) pg MCHC (31.0-37.0) g/dL RDW (11.5-15.5) % Plt Count (150-450) k/uL Neutrophils % % Lymphocytes % % Monocytes % % Eosinophils % % Basophils % % Neutrophils # (1.3-7.7) k/uL Lymphocytes # (1.0-4.8) k/uL Monocytes # (0-1.0) k/uL Eosinophils # (0-0.7) k/uL Basophils # (0-0.2) k/uL Hypochromasia Anisocytosis Microcytosis PT (9.0-12.0) sec INR (<1.2) APTT (22.0-30.0) sec Sodium (137-145) mmol/L Potassium (3.5-5.1) mmol/L Chloride (98-107) mmol/L Carbon Dioxide (22-30) mmol/L Anion Gap mmol/L BUN (9-20) mg/dL Creatinine (0.66-1.25) mg/dL Est GFR (CKD-EPI)AfAm (>60 ml/min/1.73 sqM) Est GFR (CKD-EPI)NonAf (>60 ml/min/1.73 sqM) Glucose (74-99) mg/dL Calcium (8.4-10.2) mg/dL Total Bilirubin (0.2-1.3) mg/dL AST (17-59) U/L ALT (4-49) U/L Alkaline Phosphatase (38-126) U/L Troponin I <0.012 (0.000-0.034) ng/mL Total Protein (6.3-8.2) g/dL Albumin (3.5-5.0) g/dL Amylase (30-110) U/L Lipase (23-300) U/L Urine Color Yellow Urine Appearance Clear (Clear) Urine pH 6.5 (5.0-8.0) Ur Specific [place] 1.012 (1.001-1.035) Urine Protein 1+ H (Negative) Urine Glucose (UA) Negative (Negative) Urine Ketones Negative (Negative) Urine Blood Negative (Negative) Urine Nitrite Negative (Negative) Urine Bilirubin Negative (Negative) Urine Urobilinogen <2.0 (<2.0) mg/dL Ur Leukocyte Esterase Negative (Negative) Urine RBC 1 (0-5) /hpf Urine WBC 2 (0-5) /hpf Hyaline Casts 35 H (0-2) /lpf Urine Mucus Rare H (None) /hpf Serum Alcohol mg/dL - Radiology Data Radiology results: image reviewed (Tylenol x-ray shows no acute process two-view chest x-ray shows no acute process) Disposition Clinical Impression: Alcohol dependence with withdrawal Disposition: ADMITTED IP TO THIS HOSP Is patient prescribed a controlled substance at d/c from ED?: No Referrals: Scotty Arevalo MD [Primary Care Provider] - 1-2 days Decision Time: 16:19
[2020-01-07 13:44] LABS: Partial Thromboplastin Time 24.9 sec (22.0-30.0)
[2020-01-07 13:45] LABS: ALT 77 U/L (4-49); AST 198 U/L (17-59); African American GFR (CKD) >90 (>60 ml/min/1.73 sqM); Albumin 4.6 g/dL (3.5-5.0); Alkaline Phosphatase 80 U/L (38-126); Amylase 66 U/L (30-110); Anion Gap 17 mmol/L; Anisocytosis Slight; Basophils % (A) 1 %; Blood Urea Nitrogen 6 mg/dL (9-20); Calcium 9.3 mg/dL (8.4-10.2); Carbon Dioxide 21 mmol/L (22-30); Chloride 93 mmol/L (98-107); Eosinophils # (A) 0.1 k/uL (0-0.7); Eosinophils % (A) 1 %; Glucose 119 mg/dL (74-99); HCT 29.6 % (39.0-53.0); Hypochromasia Marked; Lymphocytes % (A) 18 %; MCH 22.5 pg (25.0-35.0); MCHC 29.7 g/dL (31.0-37.0); MCV 75.9 fL (80.0-100.0); Mean Platelet Volume 7.8; Microcytosis Moderate; Monocytes # (A) 0.3 k/uL (0-1.0); Monocytes % (A) 6 %; Neutrophils # (A) 3.8 k/uL (1.3-7.7); Neutrophils % (A) 70 %; Non-African American GFR(CKD) 82 (>60 ml/min/1.73 sqM); Platelet Count 255 k/uL (150-450); Potassium 3.6 mmol/L (3.5-5.1); RDW 19.5 % (11.5-15.5); Sodium 131 mmol/L (137-145); Total Bilirubin 0.4 mg/dL (0.2-1.3); Total Protein 8.5 g/dL (6.3-8.2); WBC 5.4 k/uL (3.8-10.6)
[2020-01-07 13:47] LABS: HGB 8.8 gm/dL (13.0-17.5)
[2020-01-07 13:52] LABS: Alcohol 142 mg/dL
[2020-01-07 14:37] LABS: Appearance,Urine Clear (Clear); Bilirubin,Urine Negative (Negative); Blood,Urine Negative (Negative); Color,Urine Yellow; Glucose,Urine (UA) Negative (Negative); Hyaline Casts,Urine 35 /lpf (0-2); Ketones,Urine Negative (Negative); Leukocyte Esterase,Urine Negative (Negative); Mucus,Urine Rare /hpf; Nitrite,Urine Negative (Negative); PH, Urine 6.5 (5.0-8.0); Protein,Urine 1+ (Negative); RBC,Urine 1 /hpf (0-5); Specific Gravity,Urine 1.012 (1.001-1.035); Urobilinogen,Urine <2.0 mg/dL (<2.0); WBC,Urine 2 /hpf (0-5)
--- NOTE | 2020-01-07 14:57 | XR ---
EXAMINATION TYPE: XR chest 2V DATE OF EXAM: 01/07/2020 COMPARISON: Prior chest x-ray 10/06/2019 HISTORY: Abdominal pain, dizziness and headache, abnormal chest x-ray TECHNIQUE: Frontal and lateral views of the chest are obtained. FINDINGS: There is no interval change, scarring again noted in the right middle lobe, pleural effusi on, or pneumothorax seen. The cardiac silhouette size is within normal limits. The osseous structu res are stable, old bilateral rib fractures are noted. There is a spinal curvature. Prominent lung vo lume could be indicative of underlying COPD. IMPRESSION: No acute cardiopulmonary process.
--- NOTE | 2020-01-07 14:58 | XR ---
KUB HISTORY: Abdominal pain Frontal KUB submitted on 2 images and correlated prior KUB 07/19/2019 Degenerative disc changes in the lumbar spine. Lung bases are clear. No evident pneumoperitoneum or b owel obstruction. No pathologic calcification. IMPRESSION: No acute abnormality.
[2020-01-07] MEDS ORDERED: THIAMINE 100 MG/ML 2 ML VIAL IM STA (16:20)
[2020-01-07] MEDS ORDERED: LORazepam 2 MG/ML INJ IV PRN ×2 (16:20)
[2020-01-07] MEDS ORDERED: ONDANSETRON 4 MG/2 ML VIAL IVP PRN (16:21)
[2020-01-07] MEDS ORDERED: NALOXONE 0.4 MG/ML 1 ML VIAL IV PRN (16:21)
[2020-01-07] MEDS: LORazepam 2 MG/ML INJ IV PRN ×2 (18:59→19:31)
[2020-01-07] MEDS ORDERED: Magnesium Replacement Protocol 1 EACH MISC MISCELLANE PRN (19:23)
[2020-01-07] MEDS: MAGNESIUM SULFATE-D5W PMX 1 GM in DEXTROSE/WATER 1 100ML.BAG IVPB SCH ×3 (20:17→23:25)
[2020-01-07] MEDS: SODIUM CHLORIDE 0.9% 1,000 ML IV SCH (20:18)
--- NOTE | 2020-01-07 21:56 | HP ---
HISTORY AND PHYSICAL CHIEF COMPLAINT: Acute alcohol intoxication and DTs. HISTORY OF PRESENT ILLNESS: Illness this is another admission for this 54-year-old male with a history of dizziness and chronic alcoholism. He came in requesting admission for detox. REVIEW OF SYSTEMS: He has had no headaches, neurologic problems, chest pain, shortness of breath, hematemesis, melena, hematochezia, jaundice, renal failure, diabetes, etc. Past medical history, family history, personal and social histories are all otherwise unremarkable and noncontributory. He is only on omeprazole and albuterol. He is not allergic to any medication. PHYSICAL EXAMINATION: Blood pressure is 129/86, pulse 76, respirations of 18 and he is afebrile. Laboratory studies were unremarkable except for elevation of liver function studies. Physical examination reveals blood pressure is 145/79 with a pulse of 79, respirations 18. He is afebrile. In general, he appeared to be intoxicated appearance. Skin was warm and dry and lymph nodes not enlarged. Head, ears, eyes, nose, mouth and throat were normal. Chest is clear. Cardiac exam demonstrated normal sinus rhythm and no murmurs or extra sounds. Abdomen is soft and nontender. Extremities are normal. Neurologically he is intact. IMPRESSION: 1. Acute alcoholism. 2. Chronic alcoholism. 3. Delirium tremens. PLAN: 1. Bed rest. 2. IV fluids. 3. [facility] protocol. ANGELICA / SHAW: [id number] /
[2020-01-08] MEDS: MAGNESIUM SULFATE-D5W PMX 1 GM in DEXTROSE/WATER 1 100ML.BAG IVPB SCH (00:32)
[2020-01-08] MEDS: LORazepam 2 MG/ML INJ IV PRN ×4 (00:38→20:20)
[2020-01-08] MEDS: THIAMINE 100 MG TAB PO SCH ×2 (08:15→18:41)
[2020-01-08] MEDS: MULTIVITAMINS, THERA 1 EACH TAB PO SCH (08:15)
[2020-01-08] MEDS: SODIUM CHLORIDE 0.9% 1,000 ML IV SCH (08:17)
[2020-01-08] MEDS ORDERED: PANTOPRAZOLE 40 MG/10 ML VIAL IV SCH (09:00)
--- NOTE | 2020-01-08 17:37 | PN ---
PROGRESS NOTE DATE OF SERVICE: 01/07/2020 CHIEF COMPLAINT: Acute alcohol intoxication, alcoholism and DTs. HISTORY OF PRESENT ILLNESS: This gentleman is stable, but he is tremulous. He has no diplopia. He is not having any chest pain, nausea, vomiting, etc. PHYSICAL EXAMINATION: Head, ears, eyes, nose, mouth and throat are normal. Chest is clear. Cardiac exam is normal. Abdomen is soft, nontender. He is slightly shaky. IMPRESSION: 1. Delirium tremens. 2. Chronic alcoholism. PLAN: Continue with CIWA protocol and IV fluids. MMODL / IJN: [id number] /
[2020-01-09] MEDS: LORazepam 2 MG/ML INJ IV PRN ×7 (00:05→23:53)
[2020-01-09] MEDS: SODIUM CHLORIDE 0.9% 1,000 ML IV SCH ×3 (04:05→17:27)
[2020-01-09] MEDS: MULTIVITAMINS, THERA 1 EACH TAB PO SCH (08:10)
[2020-01-09] MEDS: THIAMINE 100 MG TAB PO SCH ×2 (08:10→17:17)
[2020-01-09] MEDS ORDERED: PANTOPRAZOLE 40 MG TABLET PO SCH (09:00)
--- NOTE | 2020-01-09 14:47 | PN ---
PROGRESS NOTE CHIEF COMPLAINT: Acute alcohol intoxication, alcoholism and DTs. HISTORY OF PRESENT ILLNESS: This gentleman is doing fairly well, but he is still tremulous. He has had no diplopia. He has had no confusion or blackouts. PHYSICAL EXAMINATION: Vital signs normal. Chest is clear. Cardiac exam is normal. Abdomen is soft, nontender. He is still tremulous. IMPRESSION: Delirium tremens. PLAN: No change in program. Wait until tomorrow to see if he is stable enough to be safely discharged. MMODL / IJN: [id number] /
[2020-01-09 21:11] VITALS: BP 166/89; PULSE 70; RESP 16; TEMP 97.7
--- NOTE | 2020-01-14 07:28 | DS ---
DISCHARGE SUMMARY DATE OF DISCHARGE: 01/10/2020 CHIEF COMPLAINT: Acute alcohol intoxication and DTs. HISTORY OF PRESENT ILLNESS AND PHYSICAL EXAM: Details of this man's history and physical can be found in the initial workup. LABORATORY STUDIES: While he was in a hospital he had laboratory studies, details of which can be found in the laboratory section of his chart. COURSE IN HOSPITAL: After admission he was placed on bedrest, started on intravenous fluids and a CIWA protocol. He remained quite tremulous for 2 to 3 days and than began to improve. Suddenly, he signed himself out AGAINST MEDICAL ADVICE. FINAL DIAGNOSES: 1. Delirium tremens. 2. Chronic alcoholism. 3. Acute alcohol intoxication. OPERATIONS: None. CONSULTATION: None. He is improved. MMODL / IJN: [id number] /
== END 2020-01-10 04:15 | disposition left against medical advice (07) | DRG 894 ==
LOC: EC 12:44 → 5NMEDONC 16:21 → OBSVTOIN 01-08 15:05
PROVIDERS: ADMIT Family Medicine; ATTEND Family Medicine
DX: F10.231 Alcohol dependence with withdrawal delirium (principal); F17.200 Nicotine dependence, unspecified, uncomplicated; F31.9 Bipolar disorder, unspecified; F41.9 Anxiety disorder, unspecified; G40.909 Epilepsy, unspecified, not intractable, without status epilepticus; J44.9 Chronic obstructive pulmonary disease, unspecified; K21.9 Gastro-esophageal reflux disease without esophagitis; Z80.0 Family history of malignant neoplasm of digestive organs; Z90.89 Acquired absence of other organs; Z98.890 Other specified postprocedural states; Z81.8 Family history of other mental and behavioral disorders; Z83.438 Family history of other disorder of lipoprotein metabolism and other lipidemia
CPT/HCPCS: 36415; 71046; 74018; 80053; 80320; 81001; 82150; 83690; 83735; 84484; 85025; 85610; 85730; 93005; 96361; 96374; 96375; 96376; 99285

== ENCOUNTER 2020-10-01 17:41 | Inpatient (IN) | payer MEDICARE, OTHER ==
[2020-10-01] MEDS ORDERED: SODIUM CHLORIDE 0.9% 1,000 ML IV STA (17:46)
[2020-10-01 18:14] LABS: Basophils # (A) 0.1 k/uL (0-0.2); Basophils % (A) 1 %; Eosinophils # (A) 0.1 k/uL (0-0.7); Eosinophils % (A) 2 %; HCT 31.1 % (39.0-53.0); HGB 10.4 gm/dL (13.0-17.5); Lymphocytes # (A) 1.7 k/uL (1.0-4.8); Lymphocytes % (A) 26 %; MCH 32.3 pg (25.0-35.0); MCHC 33.4 g/dL (31.0-37.0); MCV 96.7 fL (80.0-100.0); Monocytes # (A) 0.5 k/uL (0-1.0); Monocytes % (A) 7 %; Neutrophils # (A) 4.1 k/uL (1.3-7.7); Neutrophils % (A) 62 %; Platelet Count 229 k/uL (150-450); RBC 3.21 m/uL (4.30-5.90); RDW 14.2 % (11.5-15.5); WBC 6.5 k/uL (3.8-10.6)
[2020-10-01 18:24] LABS: INR 0.9 (<1.2); Partial Thromboplastin Time 30.3 sec (22.0-30.0); Prothrombin Time 9.8 sec (9.0-12.0)
[2020-10-01 18:27] LABS: ALT 78 U/L (4-49); AST 172 U/L (17-59); African American GFR (CKD) >90 (>60 ml/min/1.73 sqM); Albumin 4.6 g/dL (3.5-5.0); Alkaline Phosphatase 96 U/L (38-126); Anion Gap 10 mmol/L; Blood Urea Nitrogen 10 mg/dL (9-20); Calcium 8.8 mg/dL (8.4-10.2); Carbon Dioxide 26 mmol/L (22-30); Chloride 87 mmol/L (98-107); Creatine Kinase 766 U/L (55-170); Glucose 97 mg/dL (74-99); Magnesium 1.2 mg/dL (1.6-2.3); Non-African American GFR(CKD) >90 (>60 ml/min/1.73 sqM); Potassium 4.3 mmol/L (3.5-5.1); Sodium 123 mmol/L (137-145); Total Bilirubin 0.6 mg/dL (0.2-1.3)
[2020-10-01] MEDS ORDERED: LIDOCAINE 1% INJ 10MG/ML (20 ML MDV) SQ ONE (18:28)
[2020-10-01 18:41] LABS: Alcohol 317 mg/dL
--- NOTE | 2020-10-01 18:53 | XR ---
EXAMINATION TYPE: XR chest 1V portable DATE OF EXAM: 10/01/2020 COMPARISON: 01/07/2020 HISTORY: Syncope TECHNIQUE: FINDINGS: Heart and mediastinum are normal. Lungs are clear. Diaphragm is normal. There is old left s erinn rib fractures. There are no hilar masses. There are chest leads. IMPRESSION: No active cardiopulmonary disease. No change.
--- NOTE | 2020-10-01 18:56 | CT ---
EXAMINATION TYPE: CT brain marthaine wo con DATE OF EXAM: 10/01/2020 COMPARISON: 06/05/2018 HISTORY: Trauma today with facial injury CT DLP: 1133.6 mGycm Automated exposure control for dose reduction was used. There is cerebral cortical atrophy. There is no mass effect nor midline shift. There is no sign of in tracranial hemorrhage. There is mucosal thickening in the maxillary sinuses. Skull base is intact. Th ere is normal aeration of the mastoid sinuses. The cervical vertebra have normal alignment. Posterior elements are intact. Facet joints are intact. Skull base is intact. IMPRESSION: Negative CT scan cervical spine. No fracture. Cerebral atrophy. No acute intracranial abnormality. Maxillary sinusitis.
--- NOTE | 2020-10-01 18:59 | CT ---
EXAMINATION TYPE: CT facial bones wo con DATE OF EXAM: 10/01/2020 COMPARISON: None HISTORY: Trauma today with facial injury CT DLP: 1133.6 mGycm Automated exposure control for dose reduction was used. Mandibular ring is intact. The maxilla appears intact. There is no evidence of a blowout fracture. Th ere is symmetric mucosal thickening in the maxillary sinuses. The nasal bone show some mild deformity on the left side and possible nondisplaced fracture. There is no evidence of retro-orbital mass. The zygomatic arches are intact. There is normal aeration of the mastoid sinuses. There is bilateral mas toid sinus surgery noted. IMPRESSION: There is evidence of nondisplaced fracture of the nasal bone. Maxillary sinusitis. No evidence of blo wout fracture.
--- NOTE | 2020-10-01 19:35 | ED ---
Dizziness HPI - General Chief Complaint: Syncope Stated Complaint: syncope Time Seen by Provider: 10/01/20 17:50 Source: patient Mode of arrival: EMS Limitations: no limitations - History of Present Illness Initial Comments: Patient is a 55-year-old male with past history of alcohol abuse and COPD who presents to the emergency departments after he had a syncopal episode. Patient reports that he felt extremely lightheaded while he was ambulating and ended up passing out. He fell forward and hit his face on the concrete. EMS was called. They found him to have extremely low blood pressures and provided was established and they gave him 450 mL of saline. We attempted to get the patient up and onto the stretcher when he had a second syncopal episode. EKG was performed and they had concern for inferior wall STEMI patient was denying any chest pain or shortness of breath. Reports to multiple syncopal episodes in the past. Patient arrives and is visibly intoxicated. Does admit to drinking a pint of alcohol today. Denies headaches or visual changes. Denies chest pain or shortness of breath. No fevers or chills. Denies any nausea or vomiting. No other alleviating, precipitating or modifying factors - Related Data Home Medications Medication Instructions Recorded Confirmed Omeprazole [PriLOSEC] 20 mg PO DAILY 12/02/19 10/01/20 Albuterol Nebulized [Ventolin 2.5 mg INHALATION RT-QID PRN 10/01/20 10/01/20 Nebulized] Famotidine [Pepcid] 20 mg PO DAILY PRN 10/01/20 10/01/20 Sucralfate [Carafate] 1 gm PO ACHS 10/01/20 10/01/20 busPIRone HCl [Buspar] 5 mg PO TID PRN 10/01/20 10/01/20 traMADol HCL 50 mg PO DAILY PRN 10/01/20 10/01/20 Allergies Allergy/AdvReac Type Severity Reaction Status Date / Time No Known Allergies Allergy Verified 10/01/20 17:55 Review of Systems ROS Statement: Those systems with pertinent positive or pertinent negative responses have been documented in the HPI. ROS Other: All systems not noted in ROS Statement are negative. Past Medical History Past Medical History: COPD, GERD/Reflux, Pneumonia, Seizure Disorder, Syncope Additional Past Medical History / Comment(s): Severe ETOH abuse, alcohol withdrawal seizures/DTs, aspiration pneumonia, encephalopathy d/t alcohol, falls, thrombocytopenia, mastoiditis with surgery, chronic SOB. History of Any Multi-Drug Resistant Organisms: None Reported Past Surgical History: Ear Surgery, Tonsillectomy Additional Past Surgical History / Comment(s): Bilateral mastoidectomies, sinus surgery and vocal cord scraping. Past Anesthesia/Blood Transfusion Reactions: No Reported Reaction Past Psychological History: Anxiety, Bipolar, Depression Smoking Status: Current every day smoker Past Alcohol Use History: Abuse, Daily, Heavy Past Drug Use History: Marijuana - Past Family History Father Family Medical History: Cancer Additional Family Medical History / Comment(s): Father was a stomach cancer survivor. He of spinal stenosis at the age of 88yrs. Mother Family Medical History: Hyperlipidemia Additional Family Medical History / Comment(s): Mother is living and is 85 yrs old. Brother(s) Additional Family Medical History / Comment(s): Bipolar, schizoprenia General Exam Limitations: no limitations Course Vital Signs 10/01/20 10/01/20 10/01/20 17:50 19:02 21:15 Temperature 98.1 F Pulse Rate 70 68 80 Respiratory 18 18 18 Rate Blood Pressure 126/86 126/88 112/79 O2 Sat by Pulse 98 94 L 95 Oximetry EKG Findings - EKG Comments: EKG Findings:: EKG at 1746 demonstrates a normal sinus rhythm with a ventricular rate of 73. WA interval 176. QRS 94. QTC of 442. There is some ST elevation in the inferior leads. No reciprocal changes. There is similar morphology on the patient's previous EKG. Repeat EKG at 1755 continues to demonstrate a sinus rhythm with a rate of 68. WA interval 178. QRS 98. QTC of 438. Continues to have J-point elevation in the inferior leads. No reciprocal depression. Medical Decision Making - Medical Decision Making Upon arrival patient is placed into trauma bay 3. A thorough history and physi snow exam was performed. Patient does have a notable lower lip laceration. Blood pressure is obtained and is improved at this time. 12-lead EKG was performed and is compared to patient's previous EKG. It does demonstrate J- point elevation inferior leads with reciprocal changes. Previous EKG has similar morphology. A second 12-lead EKG was performed approximately 10 minutes later and continues to appear the same. Peripheral IV is established. Laboratory studies were conducted. Patient is given a liter bolus of normal saline followed by 130 mL per hour. Labs are reviewed. Sodium is 123. CK 766. Troponin is negative. Magnesium is 1.2. Alcohol 317. Lip laceration is repaired with 6 Vicryl stitches which I did recommend removal in 7-10 days. Discussed hospitalization with the patient for which she did agree to. Call discuss case with Dr. Arevalo who agreed to admit the patient. He remained in stable condition awaiting a bed on the floor - Lab Data Result diagrams: 10/01/20 18:00 10/01/20 18:00 Lab Results 10/01/20 10/01/20 10/01/20 Range/Units 18:00 18:00 18:00 WBC 6.5 (3.8-10.6) k/uL RBC 3.21 L (4.30-5.90) m/uL Hgb 10.4 L (13.0-17.5) gm/dL Hct 31.1 L (39.0-53.0) % MCV 96.7 (80.0-100.0) fL MCH 32.3 (25.0-35.0) pg MCHC 33.4 (31.0-37.0) g/dL RDW 14.2 (11.5-15.5) % Plt Count 229 (150-450) k/uL Neutrophils % 62 % Lymphocytes % 26 % Monocytes % 7 % Eosinophils % 2 % Basophils % 1 % Neutrophils # 4.1 (1.3-7.7) k/uL Lymphocytes # 1.7 (1.0-4.8) k/uL Monocytes # 0.5 (0-1.0) k/uL Eosinophils # 0.1 (0-0.7) k/uL Basophils # 0.1 (0-0.2) k/uL PT 9.8 (9.0-12.0) sec INR 0.9 (<1.2) APTT 30.3 H (22.0-30.0) sec Sodium 123 L (137-145) mmol/L Potassium 4.3 (3.5-5.1) mmol/L Chloride 87 L (98-107) mmol/L Carbon Dioxide 26 (22-30) mmol/L Anion Gap 10 mmol/L BUN 10 (9-20) mg/dL Creatinine 0.87 (0.66-1.25) mg/dL Est GFR (CKD-EPI)AfAm >90 (>60 ml/min/1.73 sqM) Est GFR (CKD-EPI)NonAf >90 (>60 ml/min/1.73 sqM) Glucose 97 (74-99) mg/dL Calcium 8.8 (8.4-10.2) mg/dL Magnesium 1.2 L (1.6-2.3) mg/dL Total Bilirubin 0.6 (0.2-1.3) mg/dL AST 172 H (17-59) U/L ALT 78 H (4-49) U/L Alkaline Phosphatase 96 (38-126) U/L Creatine Kinase 766 H (55-170) U/L Troponin I (0.000-0.034) ng/mL Total Protein 8.0 (6.3-8.2) g/dL Albumin 4.6 (3.5-5.0) g/dL Serum Alcohol 317 H* mg/dL 10/01/20 Range/Units 18:00 WBC (3.8-10.6) k/uL RBC (4.30-5.90) m/uL Hgb (13.0-17.5) gm/dL Hct (39.0-53.0) % MCV (80.0-100.0) fL MCH (25.0-35.0) pg MCHC (31.0-37.0) g/dL RDW (11.5-15.5) % Plt Count (150-450) k/uL Neutrophils % % Lymphocytes % % Monocytes % % Eosinophils % % Basophils % % Neutrophils # (1.3-7.7) k/uL Lymphocytes # (1.0-4.8) k/uL Monocytes # (0-1.0) k/uL Eosinophils # (0-0.7) k/uL Basophils # (0-0.2) k/uL PT (9.0-12.0) sec INR (<1.2) APTT (22.0-30.0) sec Sodium (137-145) mmol/L Potassium (3.5-5.1) mmol/L Chloride (98-107) mmol/L Carbon Dioxide (22-30) mmol/L Anion Gap mmol/L BUN (9-20) mg/dL Creatinine (0.66-1.25) mg/dL Est GFR (CKD-EPI)AfAm (>60 ml/min/1.73 sqM) Est GFR (CKD-EPI)NonAf (>60 ml/min/1.73 sqM) Glucose (74-99) mg/dL Calcium (8.4-10.2) mg/dL Magnesium (1.6-2.3) mg/dL Total Bilirubin (0.2-1.3) mg/dL AST (17-59) U/L ALT (4-49) U/L Alkaline Phosphatase (38-126) U/L Creatine Kinase (55-170) U/L Troponin I <0.012 (0.000-0.034) ng/mL Total Protein (6.3-8.2) g/dL Albumin (3.5-5.0) g/dL Serum Alcohol mg/dL Disposition Clinical Impression: Alcohol intoxication, Nasal bone fracture, Syncope, Hypotension Disposition: ADMITTED IP TO THIS [facility] Condition: Serious Is patient prescribed a controlled substance at d/c from ED?: No Decision to Admit Reason: Admit from EC Decision Date: 10/01/20 Decision Time: 19:35
[2020-10-01] MEDS ORDERED: NALOXONE 0.4 MG/ML 1 ML VIAL IV PRN (20:06)
[2020-10-01] MEDS ORDERED: THIAMINE 100 MG/ML 2 ML VIAL IM STA (20:26)
[2020-10-01] MEDS ORDERED: LORazepam 2 MG/ML INJ IV PRN (20:26)
[2020-10-01] MEDS: SODIUM CHLORIDE 0.9% 1,000 ML IV SCH (21:15)
[2020-10-01] MEDS ORDERED: MAGNESIUM SULFATE-D5W PMX 1 GM in DEXTROSE/WATER 1 100ML.BAG IVPB ONE (23:00)
[2020-10-01 23:49] LABS: Appearance,Urine Clear (Clear); Bilirubin,Urine Negative (Negative); Blood,Urine Negative (Negative); Color,Urine Colorless; Glucose,Urine (UA) Negative (Negative); Ketones,Urine Negative (Negative); Leukocyte Esterase,Urine Negative (Negative); Nitrite,Urine Negative (Negative); Protein,Urine Negative (Negative); Specific Gravity,Urine 1.002 (1.001-1.035); Urobilinogen,Urine <2.0 mg/dL (<2.0)
[2020-10-02] MEDS ORDERED: DIPH,PERTUS(ACELL)TETVAC-LF 0.5 ML VIAL IM ONE (00:02)
[2020-10-02] MEDS ORDERED: busPIRone HCl 5 MG TAB PO PRN (00:03)
[2020-10-02] MEDS ORDERED: FAMOTIDINE 20 MG TAB PO PRN (00:03)
[2020-10-02] MEDS ORDERED: NICOTINE 21MG/24HR PATCH TRANSDERM STA (00:08)
[2020-10-02] MEDS: ACETAMINOPHEN TAB 325 MG TAB PO PRN ×4 (00:23→23:57)
[2020-10-02] MEDS: SODIUM CHLORIDE 0.9% 1,000 ML IV SCH ×2 (04:51→10:51)
[2020-10-02] MEDS: ALBUTEROL NEBULIZED 2.5 MG/3 ML INHALATION PRN ×3 (07:43→15:12)
[2020-10-02 08:11] LABS: Basophils % (A) 0 %; Eosinophils # (A) 0.2 k/uL (0-0.7); Eosinophils % (A) 3 %; HCT 31.7 % (39.0-53.0); HGB 10.5 gm/dL (13.0-17.5); Lymphocytes # (A) 1.2 k/uL (1.0-4.8); Lymphocytes % (A) 19 %; MCH 32.6 pg (25.0-35.0); Mean Platelet Volume 6.8; Monocytes # (A) 0.5 k/uL (0-1.0); Monocytes % (A) 8 %; Neutrophils # (A) 4.5 k/uL (1.3-7.7); Neutrophils % (A) 69 %; Platelet Count 226 k/uL (150-450); RBC 3.21 m/uL (4.30-5.90); RDW 14.4 % (11.5-15.5); WBC 6.6 k/uL (3.8-10.6)
[2020-10-02 08:33] LABS: African American GFR (CKD) >90 (>60 ml/min/1.73 sqM); Anion Gap 10 mmol/L; Blood Urea Nitrogen 6 mg/dL (9-20); Calcium 9.1 mg/dL (8.4-10.2); Carbon Dioxide 23 mmol/L (22-30); Chloride 99 mmol/L (98-107); Glucose 93 mg/dL (74-99); Magnesium 1.4 mg/dL (1.6-2.3); Non-African American GFR(CKD) >90 (>60 ml/min/1.73 sqM); Potassium 4.1 mmol/L (3.5-5.1); Sodium 132 mmol/L (137-145)
[2020-10-02] MEDS: SUCRALFATE 1 GM TAB PO SCH ×4 (09:02→22:35)
[2020-10-02] MEDS: PANTOPRAZOLE 40 MG TABLET PO SCH (09:03)
[2020-10-02] MEDS: THIAMINE 100 MG TAB PO SCH ×2 (09:03→16:58)
[2020-10-02] MEDS ORDERED: Magnesium Replacement Protocol 1 EACH MISC MISCELLANE PRN (11:11)
[2020-10-02] MEDS: LORazepam 2 MG/ML INJ IV PRN ×4 (11:18→23:46)
[2020-10-02] MEDS: NICOTINE 21MG/24HR PATCH TRANSDERM SCH (11:19)
[2020-10-02] MEDS: MAGNESIUM SULFATE-D5W PMX 1 GM in DEXTROSE/WATER 1 100ML.BAG IVPB SCH ×3 (12:07→14:30)
--- NOTE | 2020-10-02 16:07 | P.CRDCN ---
History of Present Illness Consult date: 10/02/20 History of present illness: This is a 55-year-old gentleman with history of alcohol abuse and COPD who presented to the hospital with an episode of syncope. Patient was intoxication with alcohol and apparently felt very dizzy and fell forward on his face. Patient apparently had a syncopal episode. EMS was called. Patient was found to have extremely low blood pressure and was given IV fluids with saline. Patient has some pain from the fall in the chest and facial area. EKG did not reveal any acute changes. His alcohol level is high. No arrhythmias are detect ed. Patient had similar episodes in the past. His syncopal episodes seem to be related to alcohol intake and low blood pressure. Continue with hydration. We'll continue to monitor for any arrhythmias and check for any postural changes of the blood pressure. Lab values showed elevation of AST and ALT most probably related to alcohol is him. Patient was also hyponatremic on admission ,with mil d anemia. Review of Systems As per the chart Past Medical History Past Medical History: COPD, GERD/Reflux, Pneumonia, Seizure Disorder, Syncope Additional Past Medical History / Comment(s): Severe ETOH abuse, alcohol withdrawal seizures/DTs, aspiration pneumonia, encephalopathy d/t alcohol, falls, thrombocytopenia, mastoiditis with surgery, chronic SOB. History of Any Multi-Drug Resistant Organisms: None Reported Past Surgical History: Ear Surgery, Tonsillectomy Additional Past Surgical History / Comment(s): Bilateral mastoidectomies, sinus surgery and vocal cord scraping. Past Anesthesia/Blood Transfusion Reactions: No Reported Reaction Past Psychological History: Anxiety, Bipolar, Depression Smoking Status: Current every day smoker Past Alcohol Use History: Abuse, Daily, Heavy Past Drug Use History: Marijuana - Past Family History Father Family Medical History: Cancer Additional Family Medical History / Comment(s): Father was a stomach cancer survivor. He of spinal stenosis at the age of 88yrs. Mother Family Medical History: Hyperlipidemia Additional Family Medical History / Comment(s): Mother is living and is 85 yrs old. Brother(s) Additional Family Medical History / Comment(s): Bipolar, schizoprenia Medications and Allergies Home Medications Medication Instructions Recorded Confirmed Type Omeprazole [PriLOSEC] 20 mg PO DAILY 12/02/19 10/01/20 History Albuterol Nebulized [Ventolin 2.5 mg INHALATION RT-QID PRN 10/01/20 10/01/20 History Nebulized] Famotidine [Pepcid] 20 mg PO DAILY PRN 10/01/20 10/01/20 History Sucralfate [Carafate] 1 gm PO ACHS 10/01/20 10/01/20 History busPIRone HCl [Buspar] 5 mg PO TID PRN 10/01/20 10/01/20 History traMADol HCL 50 mg PO DAILY PRN 10/01/20 10/01/20 History Allergies Allergy/AdvReac Type Severity Reaction Status Date / Time No Known Allergies Allergy Verified 10/01/20 17:55 Physical Exam Vitals: Vital Signs Temp Pulse Pulse Resp BP BP Pulse Ox 10/02/20 15:19 72 10/02/20 15:13 72 10/02/20 15:00 18 127/89 97 10/02/20 14:20 16 10/02/20 11:27 88 10/02/20 11:19 92 10/02/20 09:00 16 10/02/20 08:09 98 F 68 127/80 100 10/02/20 07:52 88 10/02/20 07:45 88 10/02/20 03:33 98.1 F 94 16 96/69 97 10/01/20 23:00 98.4 F 74 17 134/81 94 L 10/01/20 21:15 98.1 F 80 18 112/79 95 10/01/20 19:02 68 18 126/88 94 L 10/01/20 17:50 70 18 126/86 98 Intake and Output 10/02/20 10/02/20 10/02/20 06:59 14:59 22:59 Intake Total 1660 Output Total 600 600 Balance -600 1060 Intake: Intake, IV Titration 1080 Amount Magnesium Sulfate-D5w Pmx 300 1 gm In Dextrose/Water 1 100ml.bag @ 100 mls/hr IVPB Q1H HERIBERTO Rx#: [id number] Sodium Chloride 0.9% 1, 780 000 ml @ 130 mls/hr IV . Q7H42M HERIBERTO Rx#:[id number] Oral 580 Output: Urine 600 600 Other: # Voids 2 GENERAL EXAM: Patient is alert and oriented and doesn't appear to be in any acute distress HEENT: Normocephalic. Normal reaction of pupils, equal size, normal range of extraocular motion. Facial contusion and lacerations from the fall NECK: No masses, no nuchal rigidity. CHEST: No chest wall deformity. LUNGS: Equal air entry with no crackles or wheeze. HEART: S1 and S2 normal with no audible mumurs or gallops. Regular rhythm, femorals equal on both sides.. ABDOMEN: No hepatosplenomegaly, normal bowel sounds, no guarding or rigidity. SKIN: No rashes CENTRAL NERVOUS SYSTEM: No focal deficits. EXTREMITIES: No cyanosis, clubbing or edema. Results 10/02/20 07:58 10/02/20 07:58 Cardiac Enzymes 10/01/20 10/01/20 10/01/20 Range/Units 18:00 18:00 21:07 AST 172 H (17-59) U/L Troponin I <0.012 <0.012 (0.000-0.034) ng/mL 10/02/20 Range/Units 00:33 AST (17-59) U/L Troponin I <0.012 (0.000-0.034) ng/mL Coagulation 10/01/20 Range/Units 18:00 PT 9.8 (9.0-12.0) sec APTT 30.3 H (22.0-30.0) sec CBC 10/01/20 10/02/20 Range/Units 18:00 07:58 WBC 6.5 6.6 (3.8-10.6) k/uL RBC 3.21 L 3.21 L (4.30-5.90) m/uL Hgb 10.4 L 10.5 L (13.0-17.5) gm/dL Hct 31.1 L 31.7 L (39.0-53.0) % Plt Count 229 226 (150-450) k/uL Comprehensive Metabolic Panel 10/01/20 10/02/20 Range/Units 18:00 07:58 Sodium 123 L 132 L (137-145) mmol/L Potassium 4.3 4.1 (3.5-5.1) mmol/L Chloride 87 L 99 (98-107) mmol/L Carbon Dioxide 26 23 (22-30) mmol/L BUN 10 6 L (9-20) mg/dL Creatinine 0.87 0.65 L (0.66-1.25) mg/dL Glucose 97 93 (74-99) mg/dL Calcium 8.8 9.1 (8.4-10.2) mg/dL AST 172 H (17-59) U/L ALT 78 H (4-49) U/L Alkaline Phosphatase 96 (38-126) U/L Total Protein 8.0 (6.3-8.2) g/dL Albumin 4.6 (3.5-5.0) g/dL Current Medications Generic Name Dose Route Start Last Admin Trade Name Freq PRN Reason Stop Dose Admin Acetaminophen 650 mg 10/02/20 00:17 10/02/20 15:17 Acetaminophen Tab 325 Mg Tab PO 650 mg Q6HR PRN Administration Fever and/ or Pain Albuterol Sulfate 2.5 mg 10/02/20 00:03 10/02/20 15:12 Albuterol Nebulized 2.5 Mg/3 Ml INHALATION 2.5 mg RT-QID PRN Administration Shortness Of Breath Buspirone HCl 5 mg 10/02/20 00:03 Buspirone Hcl 5 Mg Tab PO TID PRN Anxiety Famotidine 20 mg 10/02/20 00:03 Famotidine 20 Mg Tab PO DAILY PRN Heartburn Sodium Chloride 1,000 mls @ 130 mls/hr 10/01/20 19:15 10/02/20 10:51 Saline 0.9% IV 130 mls/hr .Q7H42M HERIBERTO Administration Lorazepam 1 mg 10/01/20 20:26 10/02/20 11:18 Lorazepam 2 Mg/Ml Inj IV 1 mg Q2HR PRN Administration CIWA 8 or 9 Lorazepam 1 mg 10/01/20 20:26 Lorazepam 2 Mg/Ml Inj IV Q1HR PRN CIWA 10 to 15 Lorazepam 2 mg 10/01/20 20:26 Lorazepam 2 Mg/Ml Inj IV 10/03/20 20:26 Q10M PRN CIWA 16 or higher Miscellaneous Information 1 each 10/02/20 11:11 Magnesium Replacement Protocol 1 Each Misc MISCELLANE DAILY PRN Per Protocol Protocol Naloxone HCl 0.2 mg 10/01/20 20:06 Naloxone 0.4 Mg/Ml 1 Ml Vial IV Q2M PRN Opioid Reversal Nicotine 1 patch 10/02/20 12:00 10/02/20 11:19 Nicotine 21mg/24hr Patch TRANSDERM 1 patch DAILY HERIBERTO Administration Pantoprazole Sodium 40 mg 10/02/20 07:30 10/02/20 09:03 Pantoprazole 40 Mg Tablet PO 40 mg DAILY@0730 HERIBERTO Administration Sucralfate 1 gm 10/02/20 07:30 10/02/20 13:15 Sucralfate 1 Gm Tab PO 1 gm ACHS HERIBERTO Administration Thiamine HCl 100 mg 10/02/20 07:30 10/02/20 09:03 Thiamine 100 Mg Tab PO 100 mg BID-W/MEALS HERIBERTO Administration Intake and Output 10/02/20 10/02/20 10/02/20 06:59 14:59 22:59 Intake Total 1660 Output Total 600 600 Balance -600 1060 Intake: Intake, IV Titration 1080 Amount Magnesium Sulfate-D5w Pmx 300 1 gm In Dextrose/Water 1 100ml.bag @ 100 mls/hr IVPB Q1H HERIBERTO Rx#: [id number] Sodium Chloride 0.9% 1, 780 000 ml @ 130 mls/hr IV . Q7H42M HERIBERTO Rx#:[id number] Oral 580 Output: Urine 600 600 Other: # Voids 2 10/02/20 07:58 10/02/20 07:58 EKG Interpretations (text) Sinus rhythm with early repolarization changes in inferior leads Assessment and Plan (1) Alcohol intoxication Current Visit: Yes Status: Acute Code(s): F10.129 - ALCOHOL ABUSE WITH INTOXICATION, UNSPECIFIED SNOMED Code(s): 55854463 (2) Hypotension Current Visit: Yes Status: Acute Code(s): I95.9 - HYPOTENSION, UNSPECIFIED SNOMED Code(s): 53072959 (3) Nasal bone fracture Current Visit: Yes Status: Acute Code(s): S02.2XXA - FRACTURE OF NASAL BONES, INIT ENCNTR FOR CLOSED FRACTURE SNOMED Code(s): 881719739 (4) Syncope Current Visit: Yes Status: Acute Code(s): R55 - SYNCOPE AND COLLAPSE SNOMED Code(s): 173069176 (5) Anemia Current Visit: No Status: Acute Code(s): D64.9 - ANEMIA, UNSPECIFIED SNOMED Code(s): 257658378 Plan: His syncopal episodes seem to be related all color intoxication and low blood pressure and her metabolic abnormalities. We'll continue to monitor for any arrhythmias and check his blood pressure for any postural changes. Continue with hydration .
--- NOTE | 2020-10-02 16:29 | HP ---
HISTORY AND PHYSICAL CHIEF COMPLAINT: Acute alcohol intoxication with fall with contusions of the face, fracture of the nose and laceration of the upper lip. HISTORY OF PRESENT ILLNESS: This is another recent admission for this 55-year-old white male, chronic alcoholic. He apparently was in the parking lot and fell forward on his face. He is brought into the emergency room intoxicated and had normal CT of the brain. He lacerated the upper lip and apparently has a chip fracture of the nasal bones. REVIEW OF SYSTEMS: He denies any neurologic problems, change in vision or hearing, shortness of breath, chest pain, palpitations, abdominal pain, nausea, vomiting, hematemesis, melena, hematochezia, diarrhea, renal failure, incontinence, etc. Past medical history, family history and personal and social histories are all otherwise unremarkable and noncontributory. He does smoke. PHYSICAL EXAMINATION: Blood pressure is 139/90 with a pulse of 83 and regular, respirations of 32, and he is afebrile. General he appeared to be in no acute distress. He was intoxicated. Skin color is normal and skin was dry. Head, ears, eyes, nose, mouth, and throat revealed swelling of the nose and laceration of the upper lip. Neck was supple. Chest was clear. Cardiac exam was normal. Abdomen is soft and nontender without any masses or visceromegaly. Extremities were normal. Neurological is intact. He is admitted to the hospital with the diagnoses of. 1. Fall with laceration of the upper lip and fracture of the nose. 2. Alcohol intoxication. 3. Chronic alcoholism. 4. Chronic obstructive pulmonary disease. PLAN: 1. Bed rest. 2. IV fluids. 3. Monitor his neurologic status and vital signs. MMODL / IJN: [id number] /
--- NOTE | 2020-10-02 16:59 | PN ---
PROGRESS NOTE DATE OF SERVICE: 10/02/2020 CHIEF COMPLAINT: Acute alcohol intoxication, fall, fractured nose and lacerations on the lip. HISTORY OF PRESENT ILLNESS: This gentleman has been stable. He is not in DTs yet. He has a slight headache. He has had no neurologic issues. PHYSICAL EXAMINATION: Chest is clear. Cardiac exam is normal. Abdomen is soft and nontender. Extremities are normal. Pupils equal, round and reactive. Nose is somewhat swollen. IMPRESSION: 1. Acute alcohol intoxication. 2. Chronic alcoholism. 3. Fall with nasal bone fracture and laceration of the lip. PLAN: Continue with IV fluids and on the CIWA protocol. MMODL / IJN: [id number] /
[2020-10-03] MEDS: ACETAMINOPHEN TAB 325 MG TAB PO PRN ×3 (06:33→18:24)
[2020-10-03] MEDS: LORazepam 2 MG/ML INJ IV PRN ×6 (06:34→23:39)
[2020-10-03] MEDS: SODIUM CHLORIDE 0.9% 1,000 ML IV SCH ×4 (06:34→18:24)
[2020-10-03] MEDS: ALBUTEROL NEBULIZED 2.5 MG/3 ML INHALATION PRN ×4 (07:52→20:39)
[2020-10-03] MEDS: PANTOPRAZOLE 40 MG TABLET PO SCH (08:11)
[2020-10-03] MEDS: SUCRALFATE 1 GM TAB PO SCH ×4 (08:11→23:30)
[2020-10-03] MEDS: THIAMINE 100 MG TAB PO SCH ×2 (08:11→17:12)
[2020-10-03] MEDS: NICOTINE 21MG/24HR PATCH TRANSDERM SCH (08:12)
[2020-10-03] MEDS ORDERED: Magnesium Replacement Protocol 1 EACH MISC MISCELLANE PRN (09:27)
--- NOTE | 2020-10-03 10:16 | P.PN ---
Subjective Progress Note Date: 10/03/20 This 55-year-old gentleman was admitted with a syncopal episode and alcohol intoxication. So far no cardiac arrhythmias are noted. He is feeling better. Having some mild tremors. Denies any chest pain. Patient continues to be healing. Lungs are clear. Heart is regular. Patient will continue current medical therapy. His syncope is most probably related to be in intoxication and hypotension. No further cardiac workup at this time Objective - Vital Signs Vital signs: Vital Signs Temp 98.9 F 10/03/20 08:10 Pulse 91 10/03/20 08:10 Resp 18 10/03/20 08:10 BP 135/79 10/03/20 08:10 Pulse Ox 98 10/03/20 08:10 Intake & Output 10/02/20 10/03/20 10/03/20 18:59 06:59 18:59 Intake Total 1660 Output Total 600 1900 1000 Balance 1060 -1900 -1000 Intake: Intake, IV Titration 1080 Amount Magnesium Sulfate-D5w Pmx 300 1 gm In Dextrose/Water 1 100ml.bag @ 100 mls/hr IVPB Q1H HERIBERTO Rx#: [id number] Sodium Chloride 0.9% 1, 780 000 ml @ 130 mls/hr IV . Q7H42M HERIBERTO Rx#:[id number] Oral 580 Output: Urine 600 1900 1000 Other: Voiding Method Urinal # Voids 2 2 - Exam GENERAL EXAM: Patient is alert and oriented and doesn't appear to be in any acute distress HEENT: Normocephalic. Normal reaction of pupils, equal size, normal range of extraocular motion. No erythema or exudates in the throat. NECK: No masses, no nuchal rigidity. CHEST: No chest wall deformity. LUNGS: Equal air entry with no crackles or wheeze. HEART: S1 and S2 normal with no audible mumurs or gallops. Regular rhythm, femorals equal on both sides.. ABDOMEN: No hepatosplenomegaly, normal bowel sounds, no guarding or rigidity. SKIN: No rashes CENTRAL NERVOUS SYSTEM: No focal deficits. EXTREMITIES: No cyanosis, clubbing or edema. - Labs CBC & Chem 7: 10/02/20 07:58 10/02/20 07:58 Labs: Abnormal Lab Results - Last 24 Hours (Table) 10/03/20 Range/Units 08:42 Magnesium 1.3 L (1.6-2.3) mg/dL Assessment and Plan (1) Alcohol intoxication Current Visit: Yes Status: Acute Code(s): F10.129 - ALCOHOL ABUSE WITH INTOXICATION, UNSPECIFIED SNOMED Code(s): 02899711 (2) Hypotension Current Visit: Yes Status: Acute Code(s): I95.9 - HYPOTENSION, UNSPECIFIED SNOMED Code(s): 97759759 (3) Nasal bone fracture Current Visit: Yes Status: Acute Code(s): S02.2XXA - FRACTURE OF NASAL BONES, INIT ENCNTR FOR CLOSED FRACTURE SNOMED Code(s): 086775543 (4) Syncope Current Visit: Yes Status: Acute Code(s): R55 - SYNCOPE AND COLLAPSE SNOMED Code(s): 432653100 (5) Anemia Current Visit: No Status: Acute Code(s): D64.9 - ANEMIA, UNSPECIFIED SNOMED Code(s): 414392334 Plan: Patient is critically stable. Continue current medical therapy. May be discharged when medically stable
[2020-10-03] MEDS: MAGNESIUM SULFATE-D5W PMX 1 GM in DEXTROSE/WATER 1 100ML.BAG IVPB SCH ×3 (10:24→12:20)
--- NOTE | 2020-10-04 02:47 | PN ---
PROGRESS NOTE CHIEF COMPLAINT: Acute alcohol intoxication and DTs. HISTORY OF PRESENT ILLNESS: This gentleman has now gone into DTs. He is quite tremulous and he is on the full- blown CIWA protocol. REVIEW OF SYSTEMS: He is complaining of some discomfort in the upper lip, but otherwise doing well. He is very tremulous. PHYSICAL EXAMINATION: Head, ears, eyes, nose, mouth, and throat revealed swelling of the nose and the upper lip. Chest is clear. Cardiac exam demonstrates tachycardia. He is very trembly. IMPRESSION: 1. Delirium tremens. 2. Chronic alcoholism. 3. Fracture of the nose. 4. Contusion of the upper lip. PLAN: Continue CIWA protocol. MMODL / IJN: [id number] /
[2020-10-04] MEDS: SODIUM CHLORIDE 0.9% 1,000 ML IV SCH ×2 (03:07→07:23)
[2020-10-04] MEDS: LORazepam 2 MG/ML INJ IV PRN ×2 (04:08→07:29)
[2020-10-04] MEDS: ACETAMINOPHEN TAB 325 MG TAB PO PRN (04:12)
[2020-10-04] MEDS: SUCRALFATE 1 GM TAB PO SCH (07:23)
[2020-10-04] MEDS: PANTOPRAZOLE 40 MG TABLET PO SCH (07:23)
[2020-10-04] MEDS: THIAMINE 100 MG TAB PO SCH (07:23)
[2020-10-04] MEDS: NICOTINE 21MG/24HR PATCH TRANSDERM SCH (07:23)
[2020-10-04 07:40] VITALS: BP 152/85; RESP 14; TEMP 98.3
[2020-10-04] MEDS: ALBUTEROL NEBULIZED 2.5 MG/3 ML INHALATION PRN (08:40)
[2020-10-04 08:43] VITALS: PULSE 60
--- NOTE | 2020-10-05 10:37 | DS ---
DISCHARGE SUMMARY CHIEF COMPLAINT: Acute alcohol intoxication, fracture of the nose and the laceration contusion of the upper lip. HISTORY OF PRESENT ILLNESS AND PHYSICAL EXAMINATION: Details of this man's history and physical can be found in the initial workup. LABORATORY STUDIES: While he was in the hospital he had laboratory studies, details of which can be found in the laboratory section of his chart. COURSE IN THE HOSPITAL: After admission he was placed on bedrest, started on intravenous fluids. He then went into DTs and was started on the CIWA protocol. He was doing fairly well, but was still in DTs, but he signed out AMA. FINAL DIAGNOSIS: 1. Acute alcohol intoxication. 2. Chronic alcoholism. 3. Fall with fracture of the nose and contusion and laceration in the upper lip. 4. DTs. OPERATIONS: None. CONSULTATION: None. He signed out AMA. ANGELICA / SHAW: [id number] /
== END 2020-10-04 09:21 | disposition left against medical advice (07) | DRG 894 ==
LOC: EC 17:41 → 1SOBS 20:06 → OBSVTOIN 10-04 08:39
PROVIDERS: ADMIT Family Medicine; ATTEND Family Medicine
PROC: 0CQ1XZZ Repair Lower Lip, External Approach (ICD-10-PCS; principal; 2020-10-01)
DX: F10.231 Alcohol dependence with withdrawal delirium (principal); E87.1 Hypo-osmolality and hyponatremia; J44.9 Chronic obstructive pulmonary disease, unspecified; G40.909 Epilepsy, unspecified, not intractable, without status epilepticus; S02.2XXA Fracture of nasal bones, initial encounter for closed fracture; F10.229 Alcohol dependence with intoxication, unspecified; F31.9 Bipolar disorder, unspecified; K21.9 Gastro-esophageal reflux disease without esophagitis; I95.9 Hypotension, unspecified; F41.9 Anxiety disorder, unspecified; F17.200 Nicotine dependence, unspecified, uncomplicated; S01.511A Laceration without foreign body of lip, initial encounter; D64.9 Anemia, unspecified; Y90.8 Blood alcohol level of 240 mg/100 ml or more; W19.XXXA Unspecified fall, initial encounter; Z80.0 Family history of malignant neoplasm of digestive organs; Z79.899 Other long term (current) drug therapy; Z90.89 Acquired absence of other organs; Z98.890 Other specified postprocedural states; Z81.8 Family history of other mental and behavioral disorders; Z83.438 Family history of other disorder of lipoprotein metabolism and other lipidemia
CPT/HCPCS: 36415; 70450; 70486; 71045; 72125; 80048; 80053; 80320; 81003; 82550; 83735; 84484; 85025; 85610; 85730; 90715; 93005; 94640; 96360; 96372; 99285

== ENCOUNTER 2020-10-14 04:13 | Inpatient (IN) | payer MEDICARE, OTHER ==
[2020-10-14] MEDS ORDERED: LORazepam 2 MG/ML INJ IV PRN ×2 (04:40)
[2020-10-14] MEDS ORDERED: SODIUM CHLORIDE 0.9% 1,000 ML IV STA ×2 (04:40)
[2020-10-14] MEDS ORDERED: THIAMINE 100 MG/ML 2 ML VIAL IM STA (04:40)
[2020-10-14] MEDS ORDERED: SODIUM CHLORIDE 0.9% 1,000 ML IV ONE (04:40)
[2020-10-14] MEDS ORDERED: LORazepam 2 MG/ML INJ IV STA (04:40)
--- NOTE | 2020-10-14 04:43 | ED ---
Alcohol HPI - General Chief Complaint: Psychiatric Symptoms Stated Complaint: Anxiety Time Seen by Provider: 10/14/20 04:19 Source: patient, EMS, RN notes reviewed, old records reviewed Mode of arrival: EMS Limitations: no limitations - History of Present Illness Initial Comments: This is a 55-year-old male DF for evaluation. Patient Dese for evaluation of severe alcohol intoxication pending alcohol withdrawal DTs. Patient states he was sent in by his family doctor for follow with infections. Patient has no headache chest pain shortness breath or abdominal pain does admit to not feeling well palpitations but has no history of suicidal or homicidal thoughts currently. Patient did also do some illicit drugs today MD Complaint: alcohol intoxication, alcohol withdrawal, alcohol dependence, desires rehab Last Drink: just [employer] -: minute(s) Previous Visits for Alcohol Intoxication?: Yes Recent Trauma: No Associated Symptoms: nausea, tremors, depression Treatments Prior to Arrival: none Chronic Alcohol Use: Yes - Related Data Home Medications Medication Instructions Recorded Confirmed Omeprazole [PriLOSEC] 20 mg PO DAILY 12/02/19 10/01/20 Albuterol Nebulized [Ventolin 2.5 mg INHALATION RT-QID PRN 10/01/20 10/01/20 Nebulized] Famotidine [Pepcid] 20 mg PO DAILY PRN 10/01/20 10/01/20 Sucralfate [Carafate] 1 gm PO ACHS 10/01/20 10/01/20 busPIRone HCl [Buspar] 5 mg PO TID PRN 10/01/20 10/01/20 traMADol HCL 50 mg PO DAILY PRN 10/01/20 10/01/20 Allergies Allergy/AdvReac Type Severity Reaction Status Date / Time No Known Allergies Allergy Verified 10/14/20 04:21 Review of Systems ROS Statement: Those systems with pertinent positive or pertinent negative responses have been documented in the HPI. ROS Other: All systems not noted in ROS Statement are negative. Past Medical History Past Medical History: COPD, GERD/Reflux, Pneumonia, Seizure Disorder, Syncope Additional Past Medical History / Comment(s): Severe ETOH abuse, alcohol withdrawal seizures/DTs, aspiration pneumonia, encephalopathy d/t alcohol, falls, thrombocytopenia, mastoiditis with surgery, chronic SOB. History of Any Multi-Drug Resistant Organisms: None Reported Past Surgical History: Ear Surgery, Tonsillectomy Additional Past Surgical History / Comment(s): Bilateral mastoidectomies, sinus surgery and vocal cord scraping. Past Anesthesia/Blood Transfusion Reactions: No Reported Reaction Past Psychological History: Anxiety, Bipolar, Depression Smoking Status: Current every day smoker Past Alcohol Use History: Abuse, Daily, Heavy Past Drug Use History: Marijuana - Past Family History Father Family Medical History: Cancer Additional Family Medical History / Comment(s): Father was a stomach cancer survivor. He of spinal stenosis at the age of 88yrs. Mother Family Medical History: Hyperlipidemia Additional Family Medical History / Comment(s): Mother is living and is 85 yrs old. Brother(s) Additional Family Medical History / Comment(s): Bipolar, schizoprenia General Exam Limitations: no limitations General appearance: alert, in no apparent distress, anxious Head exam: Present: atraumatic, normocephalic, normal inspection Eye exam: Present: normal appearance, PERRL, EOMI. Absent: scleral icterus, conjunctival injection, periorbital swelling ENT exam: Present: normal exam, mucous membranes moist Neck exam: Present: normal inspection. Absent: tenderness, meningismus, lymphadenopathy Respiratory exam: Present: normal lung sounds bilaterally. Absent: respiratory distress, wheezes, rales, rhonchi, stridor Cardiovascular Exam: Present: regular rate, normal rhythm, normal heart sounds. Absent: systolic murmur, diastolic murmur, rubs, gallop, clicks GI/Abdominal exam: Present: soft, normal bowel sounds. Absent: distended, tenderness, guarding, rebound, rigid Extremities exam: Present: normal inspection, full ROM, normal capillary refill. Absent: tenderness, pedal edema, joint swelling, calf tenderness Back exam: Present: normal inspection Neurological exam: Present: alert, oriented X3, CN II-XII intact Psychiatric exam: Present: normal affect, normal mood Skin exam: Present: warm, dry, intact, normal color. Absent: rash Course Vital Signs 10/14/20 04:14 Temperature 98.1 F Pulse Rate 69 Respiratory 16 Rate Blood Pressure 121/82 O2 Sat by Pulse 97 Oximetry - Reevaluation(s) Reevaluation #1: 10/14/20 05:52 Medical record is reviewed Reevaluation #2: 10/14/20 05:52 Symptoms improved here in the ER Reevaluation #3: 10/14/20 05:52 Spoke patient regarding findings and results, questions answered - Consultations Consultation #1: spoke with Dr. Arevalo who agrees to admit this patient Medical Decision Making - Medical Decision Making 55 male DF for evaluation with severe alcohol intoxication pending alcohol DTs and withdrawal. Not feeling well. Patient feels better with medication the ER and will admit for continued symptom management - Lab Data Result diagrams: 10/14/20 05:12 10/14/20 05:12 Lab Results 10/14/20 10/14/20 Range/Units 05:12 05:12 WBC 6.3 (3.8-10.6) k/uL RBC 3.55 L (4.30-5.90) m/uL Hgb 11.3 L (13.0-17.5) gm/dL Hct 33.5 L (39.0-53.0) % MCV 94.3 (80.0-100.0) fL MCH 31.7 (25.0-35.0) pg MCHC 33.6 (31.0-37.0) g/dL RDW 15.4 (11.5-15.5) % Plt Count 419 (150-450) k/uL MPV 6.6 Neutrophils % 58 % Lymphocytes % 30 % Monocytes % 6 % Eosinophils % 2 % Basophils % 2 % Neutrophils # 3.7 (1.3-7.7) k/uL Lymphocytes # 1.9 (1.0-4.8) k/uL Monocytes # 0.4 (0-1.0) k/uL Eosinophils # 0.1 (0-0.7) k/uL Basophils # 0.1 (0-0.2) k/uL Sodium 130 L (137-145) mmol/L Potassium 4.5 (3.5-5.1) mmol/L Chloride 94 L (98-107) mmol/L Carbon Dioxide 26 (22-30) mmol/L Anion Gap 10 mmol/L BUN 13 (9-20) mg/dL Creatinine 0.69 (0.66-1.25) mg/dL Est GFR (CKD-EPI)AfAm >90 (>60 ml/min/1.73 sqM) Est GFR (CKD-EPI)NonAf >90 (>60 ml/min/1.73 sqM) Glucose 91 (74-99) mg/dL Calcium 9.0 (8.4-10.2) mg/dL Phosphorus 5.7 H (2.5-4.5) mg/dL Magnesium 1.1 L (1.6-2.3) mg/dL Total Bilirubin 0.4 (0.2-1.3) mg/dL AST 49 (17-59) U/L ALT 29 (4-49) U/L Alkaline Phosphatase 72 (38-126) U/L Total Protein 7.8 (6.3-8.2) g/dL Albumin 4.3 (3.5-5.0) g/dL Lipase 148 (23-300) U/L Serum Alcohol 257 H* mg/dL Disposition Clinical Impression: Alcohol dependence with withdrawal, Alcohol intoxication, Acute anxiety, Palpitations, Hypomagnesemia Disposition: ADMITTED IP TO THIS HOSP Condition: Fair Is patient prescribed a controlled substance at d/c from ED?: No Referrals: Scotty Arevalo MD [Primary Care Provider] - 1-2 days
[2020-10-14 05:34] LABS: Basophils # (A) 0.1 k/uL (0-0.2); Basophils % (A) 2 %; Eosinophils # (A) 0.1 k/uL (0-0.7); Eosinophils % (A) 2 %; HCT 33.5 % (39.0-53.0); HGB 11.3 gm/dL (13.0-17.5); Lymphocytes # (A) 1.9 k/uL (1.0-4.8); Lymphocytes % (A) 30 %; MCH 31.7 pg (25.0-35.0); MCHC 33.6 g/dL (31.0-37.0); MCV 94.3 fL (80.0-100.0); Mean Platelet Volume 6.6; Monocytes # (A) 0.4 k/uL (0-1.0); Monocytes % (A) 6 %; Neutrophils # (A) 3.7 k/uL (1.3-7.7); Neutrophils % (A) 58 %; Platelet Count 419 k/uL (150-450); RBC 3.55 m/uL (4.30-5.90); RDW 15.4 % (11.5-15.5); WBC 6.3 k/uL (3.8-10.6)
[2020-10-14 05:41] LABS: ALT 29 U/L (4-49); AST 49 U/L (17-59); African American GFR (CKD) >90 (>60 ml/min/1.73 sqM); Albumin 4.3 g/dL (3.5-5.0); Alkaline Phosphatase 72 U/L (38-126); Anion Gap 10 mmol/L; Blood Urea Nitrogen 13 mg/dL (9-20); Carbon Dioxide 26 mmol/L (22-30); Chloride 94 mmol/L (98-107); Glucose 91 mg/dL (74-99); Lipase 148 U/L (23-300); Magnesium 1.1 mg/dL (1.6-2.3); Non-African American GFR(CKD) >90 (>60 ml/min/1.73 sqM); Phosphorus 5.7 mg/dL (2.5-4.5); Potassium 4.5 mmol/L (3.5-5.1); Sodium 130 mmol/L (137-145); Total Bilirubin 0.4 mg/dL (0.2-1.3); Total Protein 7.8 g/dL (6.3-8.2)
[2020-10-14 05:43] LABS: Alcohol 257 mg/dL
[2020-10-14] MEDS ORDERED: MAGNESIUM OXIDE 400 MG TAB PO STA (05:45)
[2020-10-14] MEDS: MAGNESIUM SULFATE-D5W PMX 1 GM in DEXTROSE/WATER 1 100ML.BAG IVPB SCH ×2 (05:53→07:34)
[2020-10-14 07:01] LABS: Appearance,Urine Clear (Clear); Bilirubin,Urine Negative (Negative); Blood,Urine Negative (Negative); Color,Urine Light Yellow; Glucose,Urine (UA) Negative (Negative); Ketones,Urine Negative (Negative); Leukocyte Esterase,Urine Negative (Negative); Nitrite,Urine Negative (Negative); Protein,Urine Negative (Negative); Specific Gravity,Urine 1.007 (1.001-1.035); Urobilinogen,Urine <2.0 mg/dL (<2.0)
[2020-10-14 07:13] LABS: Amphetamine Screen,Urine Not Detected (NotDetected); Barbiturate Screen,Urine Not Detected (NotDetected); Benzodiazepines Screen,Urine Not Detected (NotDetected); Cocaine Screen,Urine Not Detected (NotDetected); Methadone Screen, Urine Not Detected (NotDetected); Opiate Screen,Urine Not Detected (NotDetected); Oxycodone Screen, Urine Not Detected (NotDetected); Phencyclidine Screen,Urine Not Detected (NotDetected); Tricyclic Antidepressant,Urine Not Detected (NotDetected); Urn Cannabinoid Scrn Detected (NotDetected)
[2020-10-14] MEDS: SUCRALFATE 1 GM TAB PO SCH ×3 (12:09→21:25)
[2020-10-14] MEDS: LORazepam 2 MG/ML INJ IV PRN ×3 (12:09→20:03)
[2020-10-14] MEDS: THIAMINE 100 MG TAB PO SCH (16:15)
--- NOTE | 2020-10-14 19:32 | HP ---
HISTORY AND PHYSICAL CHIEF COMPLAINT: Acute alcohol intoxication, chronic alcoholism and DTs. HISTORY OF PRESENT ILLNESS: This is another recent admission for this gentleman who was just in the office expressing a desire to get control of his alcoholism. He came in the same night intoxicated. He was admitted. He was in the hospital last week for DTs and signed out AMA. REVIEW OF SYSTEMS: He is lethargic and inebriated now and does not offer any other symptoms. Past medical history, family history, and personal and social histories are all unchanged from his discharge several days ago. He did have a fracture of the nasal tip and had a laceration of the upper lip. PHYSICAL EXAMINATION: Blood pressure is 128/80 with a pulse of 93, respirations of 20, and he is afebrile. In general he appeared to be lethargic. His skin color is normal. Skin is warm and dry. Lymph nodes are not enlarged. Head, ears, eyes, nose, mouth and throat are unremarkable. Chest is clear. Cardiac exam demonstrates sinus rhythm. Abdomen is soft and nontender without any masses or visceromegaly. Extremities are normal. Neurologically he is lethargic. He is admitted to the hospital with the diagnoses: 1. Acute alcohol intoxication. 2. Chronic alcoholism. 3. Chronic obstructive pulmonary disease. 4. Fracture of the nasal bones. 5. Impending delirium tremens. PLAN: 1. Bed rest. 2. IV fluids. 3. CIWA protocol. ANGELICA / SHAW: [id number] /
[2020-10-14] MEDS: FAMOTIDINE 20 MG TAB PO PRN (20:03)
[2020-10-15] MEDS: LORazepam 2 MG/ML INJ IV PRN ×6 (00:48→22:24)
[2020-10-15] MEDS: PANTOPRAZOLE 40 MG TABLET PO SCH (07:07)
[2020-10-15] MEDS: SUCRALFATE 1 GM TAB PO SCH ×4 (07:07→21:01)
[2020-10-15] MEDS: THIAMINE 100 MG TAB PO SCH ×2 (07:07→17:37)
[2020-10-15] MEDS: NICOTINE 21MG/24HR PATCH TRANSDERM SCH (07:19)
[2020-10-15] MEDS: ACETAMINOPHEN TAB 325 MG TAB PO PRN ×2 (09:29→19:50)
[2020-10-15] MEDS: ALBUTEROL NEBULIZED 2.5 MG/3 ML INHALATION SCH ×3 (11:08→20:02)
--- NOTE | 2020-10-15 18:23 | PN ---
PROGRESS NOTE DATE OF SERVICE: 10/15/2020 CHIEF COMPLAINT: Alcoholism and DTs. HISTORY OF PRESENT ILLNESS: This gentleman is starting to get a little bit tremulous. He has had no fever or chills. PHYSICAL EXAMINATION: Vital signs are normal. Chest is clear. Cardiac exam is normal. The abdomen is soft and nontender. IMPRESSION: 1. Acute alcohol intoxication. 2. Delirium tremens. 3. Chronic alcoholism. PLAN: Continue with close monitoring and CIWA protocol. MMJUDITHL / IJN: [id number] /
[2020-10-16] MEDS: ALBUTEROL NEBULIZED 2.5 MG/3 ML INHALATION SCH ×6 (00:57→19:11)
[2020-10-16] MEDS: FAMOTIDINE 20 MG TAB PO PRN (03:25)
[2020-10-16] MEDS: LORazepam 2 MG/ML INJ IV PRN ×4 (03:26→17:34)
[2020-10-16] MEDS: ACETAMINOPHEN TAB 325 MG TAB PO PRN ×3 (03:30→19:58)
[2020-10-16] MEDS: NICOTINE 21MG/24HR PATCH TRANSDERM SCH (08:20)
[2020-10-16] MEDS: PANTOPRAZOLE 40 MG TABLET PO SCH (08:20)
[2020-10-16] MEDS: THIAMINE 100 MG TAB PO SCH ×2 (08:20→17:53)
[2020-10-16] MEDS: SUCRALFATE 1 GM TAB PO SCH ×4 (08:20→21:21)
[2020-10-16 16:04] LABS: ALT 30 U/L (4-49); AST 59 U/L (17-59); African American GFR (CKD) >90 (>60 ml/min/1.73 sqM); Albumin 4.4 g/dL (3.5-5.0); Albumin/Globulin Ratio 1.3; Alkaline Phosphatase 63 U/L (38-126); Anion Gap 8 mmol/L; Basophils % (A) 1 %; Blood Urea Nitrogen 14 mg/dL (9-20); Calcium 9.7 mg/dL (8.4-10.2); Carbon Dioxide 26 mmol/L (22-30); Chloride 96 mmol/L (98-107); Eosinophils % (A) 0 %; Globulin 3.5 g/dL; Glucose 125 mg/dL (74-99); HGB 10.5 gm/dL (13.0-17.5); Lymphocytes # (A) 1.5 k/uL (1.0-4.8); Lymphocytes % (A) 16 %; MCH 32.1 pg (25.0-35.0); MCHC 33.8 g/dL (31.0-37.0); MCV 94.9 fL (80.0-100.0); Mean Platelet Volume 6.9; Monocytes # (A) 0.7 k/uL (0-1.0); Monocytes % (A) 8 %; Neutrophils % (A) 74 %; Non-African American GFR(CKD) >90 (>60 ml/min/1.73 sqM); Platelet Count 365 k/uL (150-450); Potassium 3.9 mmol/L (3.5-5.1); RBC 3.27 m/uL (4.30-5.90); RDW 14.9 % (11.5-15.5); Sodium 130 mmol/L (137-145); Total Bilirubin 0.8 mg/dL (0.2-1.3); Total Protein 7.9 g/dL (6.3-8.2); WBC 9.6 k/uL (3.8-10.6)
--- NOTE | 2020-10-16 17:24 | PN ---
PROGRESS NOTE CHIEF COMPLAINT: DTs. HISTORY OF PRESENT ILLNESS: This gentleman has gone into DTs. He has not had a seizure. PHYSICAL EXAMINATION: He is slightly lethargic. Chest is clear. Cardiac exam is normal. Abdomen is soft, nontender. He has a slight tremor in both arms. IMPRESSION: 1. Delirium tremens. 2. Chronic alcoholism. PLAN: Continue with [facility] protocol. ANGELICA / MARTÍNN: [id number] /
[2020-10-17] MEDS: ALBUTEROL NEBULIZED 2.5 MG/3 ML INHALATION SCH ×5 (00:41→15:26)
[2020-10-17 07:33] VITALS: BP 124/82; TEMP 98
[2020-10-17] MEDS: SUCRALFATE 1 GM TAB PO SCH ×2 (08:10→12:30)
[2020-10-17] MEDS: NICOTINE 21MG/24HR PATCH TRANSDERM SCH (08:10)
[2020-10-17] MEDS: THIAMINE 100 MG TAB PO SCH (08:10)
[2020-10-17] MEDS: PANTOPRAZOLE 40 MG TABLET PO SCH (08:10)
[2020-10-17 15:29] VITALS: RESP 16
[2020-10-17 15:38] VITALS: PULSE 88
--- NOTE | 2020-10-20 06:18 | DS ---
DISCHARGE SUMMARY Discharged the . CHIEF COMPLAINT: Acute alcohol intoxication and DTs. HISTORY OF PRESENT ILLNESS AND PHYSICAL EXAM: Details of this man's history and physical can be found in the initial workup. COURSE IN THE HOSPITAL: After admission he was placed on bedrest, started on intravenous fluids and CIWA protocol. He became quite tremulous, went into DTs, but this was controlled. He was doing well and was anxious to be discharged and sent home on the . FINAL DIAGNOSES: 1. Acute alcohol intoxication. 2. Chronic alcoholism. 3. Delirium tremens. 4. Chronic obstructive pulmonary disease. OPERATIONS: None. CONSULTATION: None. He is improved. MMODL / IJN: [id number] /
== END 2020-10-17 16:15 | disposition home or self-care (01) | DRG 897 ==
LOC: EC 04:13 → 5NMEDONC 04:40
PROVIDERS: ADMIT Family Medicine; ATTEND Family Medicine
DX: F10.231 Alcohol dependence with withdrawal delirium (principal); F10.220 Alcohol dependence with intoxication, uncomplicated; J44.9 Chronic obstructive pulmonary disease, unspecified; G40.909 Epilepsy, unspecified, not intractable, without status epilepticus; E83.42 Hypomagnesemia; F41.9 Anxiety disorder, unspecified; K21.9 Gastro-esophageal reflux disease without esophagitis; F32.9 Major depressive disorder, single episode, unspecified; F17.210 Nicotine dependence, cigarettes, uncomplicated; S02.2XXD Fracture of nasal bones, subsequent encounter for fracture with routine healing; X58.XXXD Exposure to other specified factors, subsequent encounter; Y90.8 Blood alcohol level of 240 mg/100 ml or more; Z79.899 Other long term (current) drug therapy; Z87.01 Personal history of pneumonia (recurrent); Z98.890 Other specified postprocedural states; Z80.0 Family history of malignant neoplasm of digestive organs; Z81.8 Family history of other mental and behavioral disorders; Z83.438 Family history of other disorder of lipoprotein metabolism and other lipidemia
CPT/HCPCS: 36415; 80053; 80306; 80320; 81003; 82075; 83690; 83735; 84100; 85025; 94640; 96361; 96372; 96374; 99285

== ENCOUNTER 2020-12-28 15:24 | Emergency (ER) | payer MEDICARE, OTHER ==
[2020-12-28 15:28] VITALS: TEMP 97.7
[2020-12-28] MEDS ORDERED: ACETAMINOPHEN TAB 325 MG TAB PO STA (16:23)
[2020-12-28] MEDS ORDERED: ONDANSETRON 4 MG/2 ML VIAL IVP STA (16:23)
[2020-12-28] MEDS ORDERED: diphenhydrAMINE 50 MG/ML 1 ML VIAL IVP STA (16:23)
[2020-12-28 16:37] VITALS: RESP 18
--- NOTE | 2020-12-28 16:42 | XR ---
EXAMINATION TYPE: XR chest 2V DATE OF EXAM: 12/28/2020 COMPARISON: 10/01/2020 INDICATION: Short of breath dizziness TECHNIQUE: Frontal and lateral views of the chest are obtained. FINDINGS: The heart size is normal. The pulmonary vasculature is normal. Some subtle infiltrate is through the right middle lobe. Hyperinflation flattening the diaphragms is present compatible COPD.. IMPRESSION: 1. Mild right middle lobe infiltrate. Correlate for pneumonia. Follow-up can be performed.
[2020-12-28 16:45] LABS: ALT 46 U/L (4-49); AST 76 U/L (17-59); African American GFR (CKD) >90 (>60 ml/min/1.73 sqM); Albumin 4.4 g/dL (3.5-5.0); Alkaline Phosphatase 82 U/L (38-126); Anion Gap 12 mmol/L; Blood Urea Nitrogen 11 mg/dL (9-20); Calcium 8.8 mg/dL (8.4-10.2); Carbon Dioxide 24 mmol/L (22-30); Chloride 104 mmol/L (98-107); Glucose 108 mg/dL (74-99); Lipase 428 U/L (23-300); Non-African American GFR(CKD) >90 (>60 ml/min/1.73 sqM); Potassium 3.8 mmol/L (3.5-5.1); Sodium 140 mmol/L (137-145); Total Bilirubin 0.4 mg/dL (0.2-1.3)
--- NOTE | 2020-12-28 16:45 | CT ---
EXAMINATION TYPE: CT brain marthaine wo con DATE OF EXAM: 12/28/2020 COMPARISON: 10/01/2020 HISTORY: headache CT DLP: 1348 mGycm, Automated exposure control for dose reduction was used. CONTRAST: Patient injected with 0 mL of Isovue 300. CT of the brain is performed utilizing 3 mm thick sections through the posterior fossa and 3 mm thick sections through the remaining calvarium. Study is performed within 24 hours of arrival to the hospital. No abnormal hyperdensity is present to suggest an acute intracranial hemorrhage. No mass lesion is evident. No acute infarcts are evident. Ventricles and sulci are prominent for the patient age. Mucosal thickening is present within anterior ethmoid air cells. Mucosal thickening of the maxillary sinuses is evident. No suspicious air-fluid levels are evident. IMPRESSIONS: 1. Atrophy CT cervical spine. COMPARISON: None CT of the cervical spine is performed in the axial plane at 2 mm thick sections. Reconstructed image s in the coronal, and sagittal plane are reviewed on the computer. No acute fractures are evident. Vertebral body alignment is normal. Mild diffuse disc space narrowing is present within the mid to lower cervical spine Vertebral body heights are preserved. No spinal canal stenosis is evident. No neural foraminal stenosis is evident. IMPRESSIONS: 1. Mild degenerative disc change. 2. No acute osseous abnormality
[2020-12-28 16:51] LABS: Anisocytosis Slight; HCT 34.3 % (39.0-53.0); HGB 10.9 gm/dL (13.0-17.5); MCH 29.7 pg (25.0-35.0); MCHC 31.6 g/dL (31.0-37.0); MCV 93.9 fL (80.0-100.0); Macrocytosis Slight; Mean Platelet Volume 6.9; Platelet Count 268 k/uL (150-450); RBC 3.66 m/uL (4.30-5.90); RDW 19.2 % (11.5-15.5); WBC 5.3 k/uL (3.8-10.6)
[2020-12-28 16:58] LABS: INR 0.9 (<1.2); Partial Thromboplastin Time 26.9 sec (22.0-30.0); Prothrombin Time 10.2 sec (9.0-12.0)
[2020-12-28 17:01] LABS: Alcohol 359 mg/dL
--- NOTE | 2020-12-28 17:01 | ED ---
General Adult HPI - General Chief complaint: Headache Stated complaint: Head pain Time Seen by Provider: 12/28/20 15:43 Source: patient, RN notes reviewed Mode of arrival: ambulatory Limitations: no limitations - History of Present Illness Initial comments: This a 55-year-old male presents emergency Department chief complaints of headache, jaundice not feeling well, cough congestion. Patient states that he started a headache yesterday afternoon patient unable to tell me if he fell or not there is some bruising noted around his right eye patient is an alcoholic. Patient denies any neck pain no back pain no current chest complaints other than his shortness breath coughing which she states his is heavy smoker. Patient states that he drinks and smokes daily. Patient has no abdominal pain including nausea vomiting. - Related Data Home Medications Medication Instructions Recorded Confirmed Omeprazole [PriLOSEC] 20 mg PO DAILY 12/02/19 10/14/20 Albuterol Nebulized [Ventolin 2.5 mg INHALATION RT-QID PRN 10/01/20 10/14/20 Nebulized] Famotidine [Pepcid] 20 mg PO DAILY PRN 10/01/20 10/14/20 Sucralfate [Carafate] 1 gm PO ACHS 10/01/20 10/14/20 busPIRone HCl [Buspar] 5 mg PO TID PRN 10/01/20 10/14/20 traMADol HCL 50 mg PO DAILY PRN 10/01/20 10/14/20 Previous Rx's Medication Instructions Recorded Azithromycin [Zithromax Z-pack (6 0 mg PO DIRECTED #1 pack 12/28/20 tabs)] Allergies Allergy/AdvReac Type Severity Reaction Status Date / Time No Known Allergies Allergy Verified 12/28/20 15:28 Review of Systems ROS Statement: Those systems with pertinent positive or pertinent negative responses have been documented in the HPI. ROS Other: All systems not noted in ROS Statement are negative. Past Medical History Past Medical History: COPD, GERD/Reflux, Pneumonia, Seizure Disorder, Syncope Additional Past Medical History / Comment(s): Severe ETOH abuse, alcohol withdrawal seizures/DTs, aspiration pneumonia, encephalopathy d/t alcohol, falls, thrombocytopenia, mastoiditis with surgery, chronic SOB. History of Any Multi-Drug Resistant Organisms: None Reported Past Surgical History: Ear Surgery, Tonsillectomy Additional Past Surgical History / Comment(s): Bilateral mastoidectomies, sinus surgery and vocal cord scraping. Past Anesthesia/Blood Transfusion Reactions: No Reported Reaction Past Psychological History: Anxiety, Bipolar, Depression Smoking Status: Current every day smoker Past Alcohol Use History: Abuse, Daily, Heavy Past Drug Use History: Marijuana - Past Family History Father Family Medical History: Cancer Additional Family Medical History / Comment(s): Father was a stomach cancer survivor. He of spinal stenosis at the age of 88yrs. Mother Family Medical History: Hyperlipidemia Additional Family Medical History / Comment(s): Mother is living and is 85 yrs old. Brother(s) Additional Family Medical History / Comment(s): Bipolar, schizoprenia General Exam Limitations: no limitations General appearance: alert, in no apparent distress Head exam: Present: atraumatic, normocephalic, normal inspection Eye exam: Present: PERRL, EOMI, periorbital swelling (Ecchymosis noted right superior orbital region). Absent: normal appearance, scleral icterus, conjunctival injection ENT exam: Present: normal exam, normal oropharynx, mucous membranes moist Neck exam: Present: normal inspection. Absent: tenderness, meningismus, lymphadenopathy Respiratory exam: Present: normal lung sounds bilaterally. Absent: respiratory distress, wheezes, rales, rhonchi, stridor Cardiovascular Exam: Present: regular rate (Patient was tachycardic upon arrival though heart rate in the 80s on exam), normal rhythm, normal heart sounds. Absent: systolic murmur, diastolic murmur, rubs, gallop, clicks GI/Abdominal exam: Present: soft, normal bowel sounds. Absent: distended, tenderness, guarding, rebound, rigid Neurological exam: Present: alert, oriented X3, CN II-XII intact, reflexes normal. Absent: motor sensory deficit Skin exam: Present: warm, dry, intact, normal color. Absent: rash Course Vital Signs 12/28/20 12/28/20 15:26 16:36 Temperature 97.7 F Pulse Rate 132 H 98 Respiratory 22 18 Rate Blood Pressure 104/62 O2 Sat by Pulse 94 L 96 Oximetry Medical Decision Making - Medical Decision Making Chest x-ray shows evidence of pneumonia. Patient's CT of brain is unremarkable there is no evidence of acute bleed patient is neurologically intact headache is improved. Patient lab review shows severe alcohol intoxication though patient is awake alert and orientated. Patient has a ride home will be discharged to their care return parameters were discussed. - Lab Data Result diagrams: 12/28/20 16:25 12/28/20 16:25 Lab Results 12/28/20 12/28/20 12/28/20 Range/Units 16:25 16:25 16:25 WBC 5.3 (3.8-10.6) k/uL RBC 3.66 L (4.30-5.90) m/uL Hgb 10.9 L (13.0-17.5) gm/dL Hct 34.3 L (39.0-53.0) % MCV 93.9 (80.0-100.0) fL MCH 29.7 (25.0-35.0) pg MCHC 31.6 (31.0-37.0) g/dL RDW 19.2 H (11.5-15.5) % Plt Count 268 (150-450) k/uL MPV 6.9 Neutrophils % (Manual) 57 % Lymphocytes % (Manual) 32 % Monocytes % (Manual) 10 % Eosinophils % (Manual) 1 % Neutrophils # (Manual) 3.02 (1.3-7.7) k/uL Lymphocytes # (Manual) 1.70 (1.0-4.8) k/uL Monocytes # (Manual) 0.53 (0-1.0) k/uL Eosinophils # (Manual) 0.05 (0-0.7) k/uL Nucleated RBCs 0 (0-0) /100 WBC Manual Slide Review Performed Anisocytosis Slight Macrocytosis Slight PT 10.2 (9.0-12.0) sec INR 0.9 (<1.2) APTT 26.9 (22.0-30.0) sec Sodium 140 (137-145) mmol/L Potassium 3.8 (3.5-5.1) mmol/L Chloride 104 (98-107) mmol/L Carbon Dioxide 24 (22-30) mmol/L Anion Gap 12 mmol/L BUN 11 (9-20) mg/dL Creatinine 0.68 (0.66-1.25) mg/dL Est GFR (CKD-EPI)AfAm >90 (>60 ml/min/1.73 sqM) Est GFR (CKD-EPI)NonAf >90 (>60 ml/min/1.73 sqM) Glucose 108 H (74-99) mg/dL Calcium 8.8 (8.4-10.2) mg/dL Total Bilirubin 0.4 (0.2-1.3) mg/dL AST 76 H (17-59) U/L ALT 46 (4-49) U/L Alkaline Phosphatase 82 (38-126) U/L Troponin I (0.000-0.034) ng/mL Total Protein 8.0 (6.3-8.2) g/dL Albumin 4.4 (3.5-5.0) g/dL Lipase 428 H (23-300) U/L Serum Alcohol 359 H* mg/dL 12/28/20 Range/Units 16:25 WBC (3.8-10.6) k/uL RBC (4.30-5.90) m/uL Hgb (13.0-17.5) gm/dL Hct (39.0-53.0) % MCV (80.0-100.0) fL MCH (25.0-35.0) pg MCHC (31.0-37.0) g/dL RDW (11.5-15.5) % Plt Count (150-450) k/uL MPV Neutrophils % (Manual) % Lymphocytes % (Manual) % Monocytes % (Manual) % Eosinophils % (Manual) % Neutrophils # (Manual) (1.3-7.7) k/uL Lymphocytes # (Manual) (1.0-4.8) k/uL Monocytes # (Manual) (0-1.0) k/uL Eosinophils # (Manual) (0-0.7) k/uL Nucleated RBCs (0-0) /100 WBC Manual Slide Review Anisocytosis Macrocytosis PT (9.0-12.0) sec INR (<1.2) APTT (22.0-30.0) sec Sodium (137-145) mmol/L Potassium (3.5-5.1) mmol/L Chloride (98-107) mmol/L Carbon Dioxide (22-30) mmol/L Anion Gap mmol/L BUN (9-20) mg/dL Creatinine (0.66-1.25) mg/dL Est GFR (CKD-EPI)AfAm (>60 ml/min/1.73 sqM) Est GFR (CKD-EPI)NonAf (>60 ml/min/1.73 sqM) Glucose (74-99) mg/dL Calcium (8.4-10.2) mg/dL Total Bilirubin (0.2-1.3) mg/dL AST (17-59) U/L ALT (4-49) U/L Alkaline Phosphatase (38-126) U/L Troponin I <0.012 (0.000-0.034) ng/mL Total Protein (6.3-8.2) g/dL Albumin (3.5-5.0) g/dL Lipase (23-300) U/L Serum Alcohol mg/dL Disposition Clinical Impression: Alcohol intoxication, COPD (chronic obstructive pulmonary disease), Pneumonia Disposition: HOME SELF-CARE Condition: Stable Instructions (If sedation given, give patient instructions): Pneumonia (ED) Additional Instructions: Please return to the Emergency Department if symptoms worsen or any other concerns. Prescriptions: Azithromycin [Zithromax Z-pack (6 tabs)] 0 mg PO DIRECTED #1 pack Is patient prescribed a controlled substance at d/c from ED?: No Referrals: Scotty Arevalo MD [Primary Care Provider] - 1-2 days Time of Disposition: 17:57
[2020-12-28 17:27] LABS: Eosinophils # (M) 0.05 k/uL (0-0.7); Monocytes # (M) 0.53 k/uL (0-1.0); Neutrophils # (M) 3.02 k/uL (1.3-7.7); Neutrophils % (M) 57 %; Nucleated Red Blood Cells 0 /100 WBC (0-0); Total Cells Counted 100
[2020-12-28] MEDS ORDERED: cefTRIAXone IN SWFI 1,000 MG/10 ML SYRINGE IVP STA (17:56)
[2020-12-28] MEDS ORDERED: DEXAMETHASONE SOD PHOSPHATE 10 MG/ML 1 ML VIAL IV STA (17:56)
[2020-12-28 18:17] VITALS: BP 158/78; PULSE 95
== END 2020-12-28 18:19 | disposition home or self-care (01) ==
LOC: EC 15:24
DX: J44.0 Chronic obstructive pulmonary disease with (acute) lower respiratory infection (principal); J18.9 Pneumonia, unspecified organism; F10.129 Alcohol abuse with intoxication, unspecified; K21.9 Gastro-esophageal reflux disease without esophagitis; G40.909 Epilepsy, unspecified, not intractable, without status epilepticus; F41.9 Anxiety disorder, unspecified; F31.9 Bipolar disorder, unspecified; F17.200 Nicotine dependence, unspecified, uncomplicated; Z79.899 Other long term (current) drug therapy
CPT/HCPCS: 36415; 93005; 80053; 83690; 84484; 85025; 85610; 85730; 71046; 72125; 70450; 99284; 96374; 96375 ×3; G0480; J1200; J1100; J2405; J0696; 80320

== ENCOUNTER → 2021-03-30 | Outpatient (CLI) | payer MEDICARE, OTHER ==
[2021-03-30 14:11] VITALS: BP 112/75; PULSE 95; RESP 16; TEMP 97.6
--- NOTE | 2021-03-30 14:30 | P.PAINCN ---
History of Present Illness - Reason for Consult Consult date: 03/30/21 - History of Present Illness This is a 55-year-old patient referred by Dr. Granado with a chief complaint of headache. Of note patient has a significant history for severe alcohol abuse (with DT's in the past, multiple admissions), and daily smoking. Patient has been having headaches for about 6 months to year. Pain is located in the back of the head and described as sharp and stabbing constant throughout the day. Patient does not notice any other symptoms such as tinnitus photophobia or nausea and vomiting. Patient has been seeing Dr. Granado who is something he is unsure if this is. He is also taking tramadol which she says helps a little bit. Patient denies adverse drug effects from medications. Patient also denies new-onset weakness, bowel/bladder incontinence, or any other signs or symptoms of cauda equina syndrome. There are no signs of acute intoxication, and no indications of medication diversion or overuse. In addition to above, 13-point review of systems is also negative for chest pain , shortness of breath, changes in vision, changes in hearing, new onset weakness, abdominal pain, diarrhea, extreme fatigue, malaise, fever, skin changes, homicidal or suicidal ideation, or bowel or bladder incontinence. Physical exam: Vital Signs: Reviewed in EMR GENERAL: Well appearing, in no acute distress PSYCH: Mood and affect is appropriate. Awake, alert, and oriented SKIN: Skin color, texture, turgor normal, no rashes or lesions HEENT: Normocephalic, atraumatic. EOM intact CV: No pedal edema RESP: Respirations are unlabored, no audible wheezing GI: Abdomen non-distended MUSCULOSKELETAL: Neck: pain to palpation over the cervical paraspinous muscles. Spurling negative, Axial Loading Test positive Patel's sign negative. Pain with neck extension and flexion.. No obvious deformity or signs of trauma. Normal cervical lordotic curve and normal cervical spine range of motion NEUR: Bilateral upper coordination and muscle stretch reflexes are physiologic and symmetric. Negative clonus. No loss of sensation is noted. Cranial nerves are grossly intact. Assessment: 1. Bilateral occipital neuralgia 2. Alcohol abuse Plan: - Scheduled patient for bilateral occipital nerve blocks I have spent 47 minutes on patient care today. The time was used to review the medical records including relevant urine studies and prescription history, review of the available imaging, evaluation and examination of the patient, coordination of care with medical staff and if applicable referring physicians, as well as creation of the medical record. Past Medical History Past Medical History: COPD, GERD/Reflux, Pneumonia, Seizure Disorder, Syncope Additional Past Medical History / Comment(s): Severe ETOH abuse, alcohol withdrawal seizures/DTs, aspiration pneumonia, encephalopathy d/t alcohol, falls, thrombocytopenia, mastoiditis with surgery, chronic SOB. History of Any Multi-Drug Resistant Organisms: None Reported Past Surgical History: Ear Surgery, Tonsillectomy Additional Past Surgical History / Comment(s): Bilateral mastoidectomies, sinus surgery and vocal cord scraping. Past Anesthesia/Blood Transfusion Reactions: No Reported Reaction Past Psychological History: Anxiety, Bipolar, Depression Smoking Status: Current every day smoker Past Alcohol Use History: Abuse, Daily, Heavy Past Drug Use History: Marijuana - Past Family History Father Family Medical History: Cancer Additional Family Medical History / Comment(s): Father was a stomach cancer survivor. He of spinal stenosis at the age of 88yrs. Mother Family Medical History: Hyperlipidemia Additional Family Medical History / Comment(s): Mother is living and is 85 yrs old. Brother(s) Additional Family Medical History / Comment(s): Bipolar, schizoprenia Medications and Allergies Home Medications Medication Instructions Recorded Confirmed Type Omeprazole [PriLOSEC] 20 mg PO DAILY 12/02/19 10/14/20 History Albuterol Nebulized [Ventolin 2.5 mg INHALATION RT-QID PRN 10/01/20 10/14/20 History Nebulized] Famotidine [Pepcid] 20 mg PO DAILY PRN 10/01/20 10/14/20 History Sucralfate [Carafate] 1 gm PO ACHS 10/01/20 10/14/20 History busPIRone HCl [Buspar] 5 mg PO TID PRN 10/01/20 10/14/20 History traMADol HCL 50 mg PO DAILY PRN 10/01/20 10/14/20 History Azithromycin [Zithromax Z-pack (6 0 mg PO DIRECTED #1 pack 12/28/20 Rx tabs)] Allergies Allergy/AdvReac Type Severity Reaction Status Date / Time No Known Allergies Allergy Verified 12/28/20 15:28 PQRS Measure Charge Sheet PQRS Narrative: Smoking Status Current every day smoker Home Medications: Ambulatory Orders Omeprazole [PriLOSEC] 20 mg PO DAILY 12/02/19 Albuterol Nebulized [Ventolin Nebulized] 2.5 mg INHALATION RT-QID PRN 10/01/20 Famotidine [Pepcid] 20 mg PO DAILY PRN 10/01/20 Sucralfate [Carafate] 1 gm PO ACHS 10/01/20 busPIRone HCl [Buspar] 5 mg PO TID PRN 10/01/20 traMADol HCL 50 mg PO DAILY PRN 10/01/20 Azithromycin [Zithromax Z-pack (6 tabs)] 0 mg PO DIRECTED #1 pack 12/28/20
== END ==
LOC: PNWHC3 12:52
PROVIDERS: ATTEND Anesthesiology
DX: M54.81 Occipital neuralgia (principal); F10.10 Alcohol abuse, uncomplicated; J44.9 Chronic obstructive pulmonary disease, unspecified; G40.909 Epilepsy, unspecified, not intractable, without status epilepticus; F31.9 Bipolar disorder, unspecified; F41.9 Anxiety disorder, unspecified; F17.200 Nicotine dependence, unspecified, uncomplicated
CPT/HCPCS: 99211

== ENCOUNTER → 2021-03-30 | Outpatient (CLI) | payer MEDICARE, OTHER ==
[2021-03-30 20:01] LABS: INR 0.99 (0.90-1.11); Partial Thromboplastin Time 29.4 sec (23.5-31.0); Prothrombin Time 10.8 sec (9.9-11.9)
[2021-03-30 22:54] LABS: Basophils # (A) 0.06 X 10*3/uL (0.00-0.10); Basophils % (A) 0.9 %; Eosinophils # (A) 0.06 X 10*3/uL (0.04-0.35); Eosinophils % (A) 0.9 %; HCT 28.3 % (39.6-50.0); HGB 9.3 g/dL (13.0-17.0); Lymphocytes # (A) 1.59 X 10*3/uL (0.90-5.00); Lymphocytes % (A) 23.5 %; MCH 31.6 pg (27.0-32.0); MCHC 32.9 g/dL (32.0-37.0); MCV 96.3 fL (80.0-97.0); Mean Platelet Volume 9.8 fL (9.5-12.2); Monocytes # (A) 0.89 X 10*3/uL (0.20-1.00); Monocytes % (A) 13.1 %; Neutrophils # (A) 4.14 X 10*3/uL (1.80-7.70); Neutrophils % (A) 61.2 %; Platelet Count 231 X 10*3/uL (140-440); RBC 2.94 X 10*6/uL (4.40-5.60); WBC 6.77 X 10*3/uL (4.50-10.00)
[2021-03-31 00:18] LABS: Erythrocyte Sedimentation Rate 16 mm/Hr (0-20)
[2021-03-31 10:23] LABS: ALT 53 U/L (10-49); AST 84 U/L (14-35); C Reactive Protein <0.4 mg/dL (0.0-0.8)
== END | disposition home or self-care (01) ==
LOC: LABWHC1 12:22
PROVIDERS: ATTEND Psychiatry & Neurology Neurology
DX: M54.81 Occipital neuralgia (principal); G43.909 Migraine, unspecified, not intractable, without status migrainosus; R23.3 Spontaneous ecchymoses; Z79.01 Long term (current) use of anticoagulants; Z79.899 Other long term (current) drug therapy
CPT/HCPCS: 36415; 82306; 82607; 84450; 84460; 85025; 85610; 85652; 85730; 86038; 86140; 99211

== ENCOUNTER 2021-04-26 13:15 | Day surgery (SDC) | payer MEDICARE, OTHER ==
[2021-04-18 16:03] VITALS: BMI 23.7
[~2021-04-26 13:15] MED LIST: LACTATED RINGERS 1,000 ML IV SCH
[2021-04-26 13:37] VITALS: TEMP 98
[2021-04-26] MEDS ORDERED: LIDOCAINE 1% (10MG/ML) FOR IV START INTRADERMA ONE (13:40)
[2021-04-26] MEDS ORDERED: methylPREDNISolone ACETATE 40 MG/ML 1 ML VIAL ONE (14:04)
[2021-04-26] MEDS ORDERED: fentaNYL (PF) 50 MCG/ML 2 ML AMP ONE (14:04)
[2021-04-26] MEDS ORDERED: MIDAZOLAM 2 MG/2 ML VIAL ONE (14:04)
[2021-04-26] MEDS ORDERED: ROPIVACAINE 5MG/ML 20ML VIAL ONE (14:04)
--- NOTE | 2021-04-26 14:14 | P.PCN ---
Date of Procedure: 04/26/21 Procedure(s) Performed: Preoperative diagnoses= 1- Greater occipital neuralgia. 2-headache Postoperative diagnoses= same as preoperative diagnosis. Procedure= Bilateral Greater occipital nerve block Anesthesia= moderate sedation with Versed 2 mg and fentanyl 50 micrograms . Estimated blood loss=minimal. Procedure indication= the patient had a history of severe chronic neck pain ,and headache, diagnosed with occipital neuralgia exam was positive for severe tenderness over the occipital nerve bilaterally, she will be a good candidate occipital nerve block, patient failed conservative management Procedure description= the patient was seen and identified in the preoperative holding area, risks and benefits and alternative of the procedure and possible complications discussed with the patient, and he agreed with the preceding, patient signed the consent, an IV was started, and vital signs were monitored and were stable throughout the procedure, patient was placed in the sitting position or table and the neck area was prepped and draped with a sterile fashion, vital signs were closely monitored during the procedure, 25-gauge needle advanced 1 inch lateral to the occipital protuberance on the right side, at the location of the right occipital nerve , then after negative aspiration for heme and CSF and there was no paresthesia during the injection, 6 ml of Robivacaine 0.5% and 40 mg of Depo-Medrol injected after negative aspiration, the needle removed, and the entire same procedure was repeated for the left Greater occipital nerve. Patient tolerated the procedure well without any complication, The patient returned to supine position after the back was cleaned and a Band- Aid applied, the patient transported to recovery room in stable condition and he was monitored for 30 minutes before he was discharged home and then patient was reexamined before going home and patient was discharged in stable condition and patient will follow up with the pain clinic in a few weeks.
[2021-04-26] MEDS ORDERED: LACTATED RINGERS 1,000 ML IV ONE (14:19)
[2021-04-26 14:21] VITALS: RESP 18
[2021-04-26 14:38] VITALS: BP 119/78; PULSE 87
== END 2021-04-26 14:53 | disposition home or self-care (01) ==
LOC: ORPAIN 13:15
PROVIDERS: ATTEND Specialist
DX: M54.81 Occipital neuralgia (principal)
CPT/HCPCS: 64405; J2250; J1030; J3010; J2795

== ENCOUNTER 2021-05-12 12:06 | Day surgery (SDC) | payer MEDICARE, OTHER ==
[2021-05-12 13:03] VITALS: TEMP 97.8
[2021-05-12] MEDS ORDERED: TRIAMCINOLONE ACETONIDE 40 MG/ML 1 ML VIAL ONE (13:19)
[2021-05-12] MEDS ORDERED: ROPIVACAINE 5MG/ML 20ML VIAL ONE (13:19)
[2021-05-12] MEDS ORDERED: LIDOCAINE 1% INJ 10MG/ML (20 ML MDV) ONE (13:19)
--- NOTE | 2021-05-12 13:30 | P.PCN ---
Date of Procedure: 05/12/21 Surgeon: Prosper Ulrich Pathology: none sent Condition: stable Disposition: PACU Description of Procedure: Preoperative diagnoses= 1- Greater occipital neuralgia. 2-headache Postoperative diagnoses= same as preoperative diagnosis. Procedure= Bilateral Greater occipital nerve block Anesthesia: local only with lidocaine 1% . Estimated blood loss=negligible. Procedure indication= the patient had a history of severe chronic neck pain ,and headache, diagnosed with occipital neuralgia exam was positive for severe tenderness over the occipital nerve bilaterally, she will be a good candidate occipital nerve block, patient failed conservative management Procedure description= the patient was seen and identified in the preoperative holding area, risks and benefits and alternative of the procedure and possible complications discussed with the patient, and he agreed with the preceding, patient signed the consent, an IV was started, and vital signs were monitored and were stable throughout the procedure, patient was placed in the prone position , the occipital area was prepped and draped in a sterile fashion, vital signs were closely monitored during the procedure, 25-gauge 1" needle was advanced 1 inch lateral to the occipital protuberance on the right side, at the location of the right occipital nerve , then after negative aspiration for heme and CSF I injected 2 ml of Robivacaine 0.5% and 20 mg of Kenalog after negative aspiration, the needle removed, and the entire same procedure was repeated for the left Greater occipital nerve. Patient tolerated the procedure well without any complication.total dose of steroids used for this procedure was 40 mg of Kenalog. The patient returned to supine position after the back was cleaned and a Band- Aid applied, the patient transported to recovery room in stable condition and he was monitored for 30 minutes before he was discharged home and then patient was reexamined before going home and patient was discharged in stable condition and patient will follow up with the pain clinic in a few weeks. P
[2021-05-12 13:37] VITALS: BP 125/84; PULSE 84; RESP 16
== END 2021-05-12 13:52 | disposition home or self-care (01) ==
LOC: ORPAIN 12:06
PROVIDERS: ATTEND Anesthesiology
DX: M54.81 Occipital neuralgia (principal); J44.9 Chronic obstructive pulmonary disease, unspecified
CPT/HCPCS: 64405; J3301; J2001; J2795

== ENCOUNTER 2021-05-30 22:24 | Inpatient (IN) | payer MEDICARE, OTHER ==
[2021-05-30] MEDS ORDERED: SODIUM CHLORIDE 0.9% 1,000 ML IV STA ×2 (22:29)
[2021-05-30] MEDS ORDERED: LORazepam 2 MG/ML INJ IV STA (22:36)
--- NOTE | 2021-05-30 22:39 | ED ---
Alcohol HPI - General Chief Complaint: Arrhythmia/Palpitations Stated Complaint: Tachycardia Time Seen by Provider: 05/30/21 22:28 Source: patient, RN notes reviewed, old records reviewed Mode of arrival: ambulatory Limitations: no limitations - History of Present Illness Initial Comments: This is a 55-year-old male DF for evaluation. Patient Dese for evaluation of alcohol intoxication the patient states possibly more withdrawal. 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 Previous Visits for Alcohol Intoxication?: Yes Recent Trauma: No Associated Symptoms: nausea, vomiting, diaphoresis, tremors Treatments Prior to Arrival: none Chronic Alcohol Use: Yes - Related Data Home Medications Medication Instructions Recorded Confirmed Omeprazole [PriLOSEC] 20 mg PO DAILY 12/02/19 05/30/21 Acetaminophen [Tylenol Extra 100 mg PO Q4-6H PRN 04/26/21 05/30/21 Strength] Cholecalciferol [Vitamin D3 (25 25 mcg PO DAILY 05/30/21 05/30/21 Mcg = 1000 Iu)] Thiamine HCl [Vitamin B-1] 100 mg PO DAILY 05/30/21 05/30/21 Allergies Allergy/AdvReac Type Severity Reaction Status Date / Time No Known Allergies Allergy Verified 05/30/21 23:25 Review of Systems ROS Statement: Those systems with pertinent positive or pertinent negative responses have been documented in the HPI. ROS Other: All systems not noted in ROS Statement are negative. Past Medical History Past Medical History: COPD, GERD/Reflux, Pneumonia, Seizure Disorder, Syncope Additional Past Medical History / Comment(s): Severe ETOH abuse, alcohol withdrawal seizures/DTs, aspiration pneumonia, encephalopathy d/t alcohol, falls, thrombocytopenia, mastoiditis with surgery, chronic SOB. States is curr ently drinking again. History of Any Multi-Drug Resistant Organisms: None Reported Past Surgical History: Ear Surgery, Tonsillectomy Additional Past Surgical History / Comment(s): Bilateral mastoidectomies, sinus surgery and vocal cord scraping. Past Anesthesia/Blood Transfusion Reactions: No Reported Reaction Past Psychological History: Anxiety, Bipolar, Depression Smoking Status: Current every day smoker Past Alcohol Use History: Abuse, Daily, Heavy Past Drug Use History: Marijuana - Past Family History Father Family Medical History: Cancer Additional Family Medical History / Comment(s): Father was a stomach cancer survivor. He of spinal stenosis at the age of 88yrs. Mother Family Medical History: Hyperlipidemia Additional Family Medical History / Comment(s): Mother is living and is 85 yrs old. Brother(s) Additional Family Medical History / Comment(s): Bipolar, schizoprenia General Exam Limitations: altered mental status, physical limitation General appearance: anxious, in distress Head exam: Present: atraumatic, normocephalic, normal inspection Eye exam: Present: normal appearance, PERRL, EOMI. Absent: scleral icterus, conjunctival injection, periorbital swelling ENT exam: Present: normal exam, mucous membranes moist Neck exam: Present: normal inspection. Absent: tenderness, meningismus, lymphadenopathy Respiratory exam: Present: normal lung sounds bilaterally. Absent: respiratory distress, wheezes, rales, rhonchi, stridor Cardiovascular Exam: Present: normal rhythm, tachycardia, normal heart sounds. Absent: systolic murmur, diastolic murmur, rubs, gallop, clicks GI/Abdominal exam: Present: soft, normal bowel sounds. Absent: distended, tenderness, guarding, rebound, rigid Extremities exam: Present: normal inspection, full ROM, normal capillary refill. Absent: tenderness, pedal edema, joint swelling, calf tenderness Back exam: Present: normal inspection Neurological exam: Present: alert, oriented X3, CN II-XII intact Psychiatric exam: Present: normal affect, normal mood Skin exam: Present: warm, dry, intact, normal color. Absent: rash Course Vital Signs 05/30/21 05/30/21 05/30/21 22:25 22:30 23:00 Temperature 98.1 F Pulse Rate 113 H 112 H Pulse Rate [ 118 H Abseiling Instructor ] Respiratory 20 20 Rate Blood Pressure 116/74 116/74 O2 Sat by Pulse 97 97 Oximetry 05/30/21 23:47 Temperature Pulse Rate 95 Pulse Rate [ Abseiling Instructor ] Respiratory 18 Rate Blood Pressure 108/82 O2 Sat by Pulse 98 Oximetry - Reevaluation(s) Reevaluation #1: Medical records reviewed Patient symptoms are improved significantly here in the ER Patient in no acute distress Patient informed of results and questions answered Medical Decision Making - Medical Decision Making 55 male DF for evaluation patient presents today for evaluation regards to severe shaking weakness not feeling well altered mental status diaphoresis patient will be admitted for impending alcohol withdrawal DTs - Lab Data Result diagrams: 06/01/21 07:49 06/02/21 07:46 Lab Results 05/30/21 05/30/21 05/30/21 Range/Units 22:38 22:38 22:38 WBC 5.2 (3.8-10.6) k/uL RBC 3.16 L (4.30-5.90) m/uL Hgb 10.7 L (13.0-17.5) gm/dL Hct 31.5 L (39.0-53.0) % MCV 99.9 (80.0-100.0) fL MCH 33.9 (25.0-35.0) pg MCHC 33.9 (31.0-37.0) g/dL RDW 15.9 H (11.5-15.5) % Plt Count 178 (150-450) k/uL MPV 7.0 Neutrophils % 72 % Lymphocytes % 18 % Monocytes % 7 % Eosinophils % 1 % Basophils % 0 % Neutrophils # 3.7 (1.3-7.7) k/uL Lymphocytes # 0.9 L (1.0-4.8) k/uL Monocytes # 0.4 (0-1.0) k/uL Eosinophils # 0.0 (0-0.7) k/uL Basophils # 0.0 (0-0.2) k/uL Macrocytosis Slight Sodium 121 L (137-145) mmol/L Potassium 3.1 L (3.5-5.1) mmol/L Chloride 87 L (98-107) mmol/L Carbon Dioxide 18 L (22-30) mmol/L Anion Gap 16 mmol/L BUN 4 L (9-20) mg/dL Creatinine 0.83 (0.66-1.25) mg/dL Est GFR (CKD-EPI)AfAm >90 (>60 ml/min/1.73 sqM) Est GFR (CKD-EPI)NonAf >90 (>60 ml/min/1.73 sqM) Glucose 116 H (74-99) mg/dL Calcium 8.6 (8.4-10.2) mg/dL Phosphorus 2.9 (2.5-4.5) mg/dL Magnesium 0.9 L* (1.6-2.3) mg/dL Total Bilirubin 0.4 (0.2-1.3) mg/dL AST 131 H (17-59) U/L ALT 71 H (4-49) U/L Alkaline Phosphatase 63 (38-126) U/L Total Protein 7.0 (6.3-8.2) g/dL Albumin 4.4 (3.5-5.0) g/dL Lipase 378 H (23-300) U/L Urine Color Yellow Urine Appearance Clear (Clear) Urine pH 6.5 (5.0-8.0) Ur Specific Reynolds 1.013 (1.001-1.035) Urine Protein Negative (Negative) Urine Glucose (UA) Negative (Negative) Urine Ketones Negative (Negative) Urine Blood Negative (Negative) Urine Nitrite Negative (Negative) Urine Bilirubin Negative (Negative) Urine Urobilinogen <2.0 (<2.0) mg/dL Ur Leukocyte Esterase Negative (Negative) Serum Alcohol 171 mg/dL Disposition Clinical Impression: Alcohol dependence with withdrawal, Alcohol intoxication, Seizure disorder, Withdrawal symptoms, alcohol, Hyponatremia Disposition: ADMITTED IP TO THIS HOSP Condition: Fair Is patient prescribed a controlled substance at d/c from ED?: No
[2021-05-30 23:06] LABS: Basophils % (A) 0 %; Eosinophils % (A) 1 %; HCT 31.5 % (39.0-53.0); HGB 10.7 gm/dL (13.0-17.5); Lymphocytes # (A) 0.9 k/uL (1.0-4.8); Lymphocytes % (A) 18 %; MCH 33.9 pg (25.0-35.0); MCHC 33.9 g/dL (31.0-37.0); MCV 99.9 fL (80.0-100.0); Macrocytosis Slight; Monocytes # (A) 0.4 k/uL (0-1.0); Monocytes % (A) 7 %; Neutrophils # (A) 3.7 k/uL (1.3-7.7); Neutrophils % (A) 72 %; Platelet Count 178 k/uL (150-450); RBC 3.16 m/uL (4.30-5.90); RDW 15.9 % (11.5-15.5); WBC 5.2 k/uL (3.8-10.6)
[2021-05-30 23:18] LABS: ALT 71 U/L (4-49); AST 131 U/L (17-59); African American GFR (CKD) >90 (>60 ml/min/1.73 sqM); Albumin 4.4 g/dL (3.5-5.0); Alkaline Phosphatase 63 U/L (38-126); Anion Gap 16 mmol/L; Blood Urea Nitrogen 4 mg/dL (9-20); Calcium 8.6 mg/dL (8.4-10.2); Carbon Dioxide 18 mmol/L (22-30); Chloride 87 mmol/L (98-107); Glucose 116 mg/dL (74-99); Lipase 378 U/L (23-300); Non-African American GFR(CKD) >90 (>60 ml/min/1.73 sqM); Phosphorus 2.9 mg/dL (2.5-4.5); Potassium 3.1 mmol/L (3.5-5.1); Sodium 121 mmol/L (137-145); Total Bilirubin 0.4 mg/dL (0.2-1.3)
[2021-05-30 23:27] LABS: Magnesium 0.9 mg/dL (1.6-2.3)
[2021-05-30 23:29] LABS: Alcohol 171 mg/dL
[2021-05-31 00:25] LABS: Appearance,Urine Clear (Clear); Bilirubin,Urine Negative (Negative); Blood,Urine Negative (Negative); Color,Urine Yellow; Glucose,Urine (UA) Negative (Negative); Ketones,Urine Negative (Negative); Leukocyte Esterase,Urine Negative (Negative); Nitrite,Urine Negative (Negative); PH, Urine 6.5 (5.0-8.0); Protein,Urine Negative (Negative); Specific Gravity,Urine 1.013 (1.001-1.035); Urobilinogen,Urine <2.0 mg/dL (<2.0)
[2021-05-31] MEDS ORDERED: LORazepam 2 MG/ML INJ IV PRN (00:26)
[2021-05-31] MEDS ORDERED: THIAMINE 100 MG/ML 2 ML VIAL IM STA (00:26)
[2021-05-31] MEDS ORDERED: NALOXONE 0.4 MG/ML 1 ML VIAL IV PRN (00:26)
[2021-05-31] MEDS ORDERED: ONDANSETRON 4 MG/2 ML VIAL IVP PRN (00:26)
[2021-05-31] MEDS: POTASSIUM CHLORIDE 10 MEQ in WATER FOR INJECTION 1 100ML.BAG IVPB SCH ×6 (00:55→09:47)
[2021-05-31] MEDS: MAGNESIUM SULFATE-D5W PMX 1 GM in DEXTROSE/WATER 1 100ML.BAG IVPB SCH ×4 (00:55→05:25)
[2021-05-31] MEDS: LORazepam 2 MG/ML INJ IV PRN ×4 (05:25→20:54)
[2021-05-31] MEDS: PANTOPRAZOLE 40 MG/10 ML VIAL IV SCH ×2 (08:18→08:20)
--- NOTE | 2021-05-31 10:32 | P.NPCON ---
History of Present Illness - Reason for Consult hyponatremia - History of Present Illness Reason for consultation: Hyponatremia History of present illness: Patient is a 55-year-old male seen in is without sedation for hyponatremia. Patient's sodium level was 121 on admission. He did receive 2 L bolus of normal saline and is currently maintained on normal saline at 100 mL an hour. Labs from this morning are pending. Patient presented to the hospital with chest palpitations. She states he drank a bottle of concentrated caffeine yesterday and subsequently felt the palpitations. Additionally he's been drinking close to a fifth of alcohol on a daily basis. He's been having loose bowel movements. Oral intake has been poor. No vomiting. Denies shortness of breath. No edema. Has been voiding. No hematuria or dysuria. Denies any personal or family history of kidney disease. Creatinine 0.83 on admission. Blood pressure stable. No fever or chills. Vital signs are stable. General: The patient appeared well nourished and normally developed. HEENT: Head exam is unremarkable. Neck is without jugular venous distension. LUNGS: Breath sounds decreased. HEART: Rate and Rhythm are regular. ABDOMEN: Soft, no distention. EXTREMITITES: No edema. Past Medical History Past Medical History: COPD, GERD/Reflux, Pneumonia, Seizure Disorder, Syncope Additional Past Medical History / Comment(s): Severe ETOH abuse, alcohol withd raquel seizures/DTs, aspiration pneumonia, encephalopathy d/t alcohol, falls, thrombocytopenia, mastoiditis with surgery, chronic SOB. States is currently drinking again. History of Any Multi-Drug Resistant Organisms: None Reported Past Surgical History: Ear Surgery, Tonsillectomy Additional Past Surgical History / Comment(s): Bilateral mastoidectomies, sinus surgery and vocal cord scraping. Past Anesthesia/Blood Transfusion Reactions: No Reported Reaction Past Psychological History: Anxiety, Bipolar, Depression Additional Psychological History / Comment(s): Pt lives with his girlfriend. He uses no assistive device. He does not have a license d/t DUIs. 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 Smoking Status: Current every day smoker Past Alcohol Use History: Abuse, Daily, Heavy Additional Past Alcohol Use History / Comment(s): Pt started smoking in 1979 and is a ppd smoker. States is currently drinking again. Had stopped 2020 for a short time. Past Drug Use History: Marijuana Additional Drug Use History / Comment(s): smokes marijuana once a day. - Past Family History Father Family Medical History: Cancer Additional Family Medical History / Comment(s): Father was a stomach cancer survivor. He of spinal stenosis at the age of 88yrs. Mother Family Medical History: Hyperlipidemia Additional Family Medical History / Comment(s): Mother is living and is 85 yrs old. Brother(s) Additional Family Medical History / Comment(s): Bipolar, schizoprenia Medications and Allergies Home Medications Medication Instructions Recorded Confirmed Type Omeprazole [PriLOSEC] 20 mg PO DAILY 12/02/19 05/30/21 History Acetaminophen [Tylenol Extra 100 mg PO Q4-6H PRN 04/26/21 05/30/21 History Strength] Cholecalciferol [Vitamin D3 (25 25 mcg PO DAILY 05/30/21 05/30/21 History Mcg = 1000 Iu)] Magnesium Oxide 400 mg PO DAILY 05/30/21 05/30/21 History Thiamine HCl [Vitamin B-1] 100 mg PO DAILY 05/30/21 05/30/21 History Allergies Allergy/AdvReac Type Severity Reaction Status Date / Time No Known Allergies Allergy Verified 05/30/21 23:25 Physical Exam Vitals: Vital Signs Temp Pulse Pulse Resp BP BP Pulse Ox 05/31/21 08:00 98.9 F 97 19 120/71 96 05/31/21 01:21 98.1 F 95 17 115/69 95 05/30/21 23:47 95 18 108/82 98 05/30/21 23:00 112 H 20 116/74 97 05/30/21 22:30 118 H 05/30/21 22:25 98.1 F 113 H 20 116/74 97 Intake and Output 05/30/21 05/31/21 05/31/21 22:59 06:59 14:59 Output Total 2250 Balance -2250 Output: Urine 2250 Other: # Voids 2 Weight 72.575 kg 72.575 kg Results - Lab Results Most recent lab results Calcium 8.6 mg/dL (8.4-10.2) 05/30/21 22:38 Phosphorus 2.9 mg/dL (2.5-4.5) 05/30/21 22:38 Magnesium 0.9 mg/dL (1.6-2.3) L* 05/30/21 22:38 05/30/21 22:38 05/30/21 22:38 Assessment and Plan Plan: Assessment: 1. Hypovolemic hyponatremia with component of poor solute intake. Sodium level 121 on admission. 2. Hypokalemia from poor intake and hypomagnesemia. 3. Hypomagnesemia from poor intake, diarrhea and alcohol-induced renal losses. 4. Metabolic acidosis from diarrhea. 5. Alcohol abuse. Plan: Maintain normal saline. Fluids will need to be adjusted based on the sodium level to avoid rapid correction. Check labs now. Check TSH. Check serum and urine osmolality and urine sodium level. Potassium and magnesium have been replaced. Thank you for the consultation. I will continue to follow this patient with you during his hospital stay.
[2021-05-31 11:17] LABS: African American GFR (CKD) >90 (>60 ml/min/1.73 sqM); Anion Gap 7 mmol/L; Blood Urea Nitrogen 3 mg/dL (9-20); Calcium 8.9 mg/dL (8.4-10.2); Carbon Dioxide 25 mmol/L (22-30); Chloride 97 mmol/L (98-107); Glucose 117 mg/dL (74-99); Magnesium 1.8 mg/dL (1.6-2.3); Non-African American GFR(CKD) >90 (>60 ml/min/1.73 sqM); Sodium 129 mmol/L (137-145)
[2021-05-31] MEDS ORDERED: DEXTROSE 5% IN WATER 1,000 ML IV SCH (11:30)
[2021-05-31 14:38] VITALS: BMI 22.9
[2021-05-31] MEDS: THIAMINE 100 MG TAB PO SCH (17:33)
[2021-05-31] MEDS: BENZOCAINE/MENTHOL LOZENG 1 EACH LOZENGE MUCOUS MEM PRN (23:45)
[2021-06-01] MEDS: THIAMINE 100 MG TAB PO SCH ×2 (08:48→18:30)
[2021-06-01 08:57] LABS: ALT 72 U/L (4-49); AST 101 U/L (17-59); African American GFR (CKD) >90 (>60 ml/min/1.73 sqM); Albumin 4.6 g/dL (3.5-5.0); Albumin/Globulin Ratio 1.6; Alkaline Phosphatase 62 U/L (38-126); Anion Gap 7 mmol/L; Blood Urea Nitrogen 2 mg/dL (9-20); Calcium 9.8 mg/dL (8.4-10.2); Carbon Dioxide 29 mmol/L (22-30); Chloride 90 mmol/L (98-107); Globulin 2.8 g/dL; Glucose 100 mg/dL (74-99); Lipase 282 U/L (23-300); Magnesium 1.2 mg/dL (1.6-2.3); Non-African American GFR(CKD) >90 (>60 ml/min/1.73 sqM); Phosphorus 2.6 mg/dL (2.5-4.5); Potassium 4.7 mmol/L (3.5-5.1); Sodium 126 mmol/L (137-145); Total Protein 7.4 g/dL (6.3-8.2)
[2021-06-01] MEDS: PANTOPRAZOLE 40 MG TABLET PO SCH (09:05)
[2021-06-01] MEDS: LORazepam 2 MG/ML INJ IV PRN ×3 (09:06→20:01)
--- NOTE | 2021-06-01 09:34 | P.PN ---
Subjective Patient is seen in follow-up for hyponatremia. Sodium level gradually improving. He did receive D5W for a few hours yesterday to prevent rapid cor rection. Sodium level 126 this morning. Oral intake remains poor. Has been voiding. No chest pain or shortness of breath. Vital signs are stable. General: The patient appeared well nourished and normally developed. HEENT: Head exam is unremarkable. Neck is without jugular venous distension. LUNGS: Breath sounds decreased. HEART: Rate and Rhythm are regular. ABDOMEN: Soft, no distention. EXTREMITITES: No edema. Objective - Vital Signs Vital signs: Vital Signs Temp 97.8 F 06/01/21 08:00 Pulse 90 06/01/21 08:00 Resp 18 06/01/21 08:00 BP 136/88 06/01/21 08:00 Pulse Ox 96 06/01/21 08:00 Intake & Output 05/31/21 06/01/21 06/01/21 18:59 06:59 18:59 Intake Total 1080 Output Total 2550 700 200 Balance -1470 -700 -200 Weight 72.575 kg Intake: Oral 1080 Output: Urine 2550 700 200 Other: Voiding Method Urinal # Bowel Movements 3 - Labs CBC & Chem 7: 05/30/21 22:38 06/01/21 07:49 Labs: Abnormal Lab Results - Last 24 Hours (Table) 05/31/21 05/31/21 05/31/21 Range/Units 10:27 14:45 18:22 Sodium 129 L 128 L 127 L (137-145) mmol/L Chloride 97 L (98-107) mmol/L BUN 3 L (9-20) mg/dL Creatinine 0.56 L (0.66-1.25) mg/dL Glucose 117 H (74-99) mg/dL Magnesium (1.6-2.3) mg/dL AST (17-59) U/L ALT (4-49) U/L 06/01/21 Range/Units 07:49 Sodium 126 L (137-145) mmol/L Chloride 90 L (98-107) mmol/L BUN 2 L (9-20) mg/dL Creatinine 0.55 L (0.66-1.25) mg/dL Glucose 100 H (74-99) mg/dL Magnesium 1.2 L (1.6-2.3) mg/dL AST 101 H (17-59) U/L ALT 72 H (4-49) U/L Assessment and Plan Plan: Assessment: 1. Hypovolemic hyponatremia with component of poor solute intake. Sodium level 121 on admission. TSH normal. 2. Hypokalemia from poor intake and hypomagnesemia. Replaced. Better. 3. Hypomagnesemia from poor intake, diarrhea and alcohol-induced renal losses. 4. Metabolic acidosis from diarrhea. Resolved. 5. Alcohol abuse. Plan: Remains off IV fluids. Add sodium chloride tabs. Encourage oral intake, particularly protein. 1500 mL fluid restriction. Repeat electrolytes in the morning. Replace magnesium.
[2021-06-01] MEDS: MAGNESIUM SULFATE-D5W PMX 1 GM in DEXTROSE/WATER 1 100ML.BAG IVPB SCH ×4 (10:31→15:57)
[2021-06-01] MEDS: SODIUM CHLORIDE TAB 1 GM TAB PO SCH ×2 (11:02→20:43)
[2021-06-01 12:10] LABS: Basophils # (A) 0.02 X 10*3/uL (0.00-0.10); Basophils % (A) 0.3 %; Eosinophils # (A) 0.05 X 10*3/uL (0.04-0.35); Eosinophils % (A) 0.8 %; HCT 32.9 % (39.6-50.0); HGB 11.1 g/dL (13.0-17.0); Lymphocytes # (A) 1.02 X 10*3/uL (0.90-5.00); Lymphocytes % (A) 16.8 %; MCHC 33.7 g/dL (32.0-37.0); MCV 100.9 fL (80.0-97.0); Mean Platelet Volume 10.1 fL (9.5-12.2); Monocytes % (A) 9.9 %; Neutrophils # (A) 4.36 X 10*3/uL (1.80-7.70); Neutrophils % (A) 71.9 %; Platelet Count 174 X 10*3/uL (140-440); RBC 3.26 X 10*6/uL (4.40-5.60); WBC 6.07 X 10*3/uL (4.50-10.00)
[2021-06-01] MEDS: NICOTINE 14MG/24HR PATCH TRANSDERM SCH (13:54)
[2021-06-01] MEDS: IOPAMIDOL CONTRAST (ORAL USE) VIAL PO PRN ×2 (15:32→16:29)
--- NOTE | 2021-06-01 17:41 | CT ---
EXAMINATION TYPE: CT abdomen pelvis w con DATE OF EXAM: 06/01/2021 COMPARISON: 12/02/2019 HISTORY: abdominal pain CT DLP: 778.6 mGycm Automated exposure control for dose reduction was used. CONTRAST: Performed with IV Contrast, patient injected with 100 mL of Isovue 300. There is some mild linear density in the anterior right middle lobe consistent with scarring and unch anged. The lung bases are otherwise clear. There is no pleural effusion. There is no pericardial effu jeanie. Liver spleen stomach pancreas appear intact. The bile ducts are not dilated. Gallbladder appears norm al. There is no adrenal mass. Kidneys show satisfactory contrast opacification. There is no hydronephrosi s. Ureters are not dilated. There is no retroperitoneal adenopathy. The delayed images show normal re nal excretion. The bladder distends smoothly. There is no inguinal hernia. There is no free fluid in the pelvis. There is no small bowel mesenteric edema. There is no ascites or free air. There is air-filled append ix which appears normal. There is mild fat stranding around the kidneys. The lumbar vertebra show normal alignment. There is T12 40% compression fracture with osteosclerosis. The bony pelvis is intact. Hip joints are intact. There is no hip dysplasia. IMPRESSION: There is some mild fat stranding around the kidneys. This is more on the right side and is mostly new compared to old exam. There is normal enhancement of the kidneys. I do not see sign of pyelonephriti s. Clinical significance is not clear. Normal appendix. There is a compression fracture of T12 which is new compared to the old CT scan.
--- NOTE | 2021-06-01 18:44 | HP ---
HISTORY AND PHYSICAL CHIEF COMPLAINT: Acute alcohol intoxication and DTs. HISTORY OF PRESENT ILLNESS: This gentleman came into the emergency room with acute alcohol intoxication, weakness and DTs. He was admitted in my absence. REVIEW OF SYSTEMS: He denied any headache, blackouts, chest pain, abdominal pain, etc. Past medical history, family history and personal and social histories are all otherwise unremarkable or noncontributory. PHYSICAL EXAMINATION: His vital signs are normal. He was somewhat lethargic and he was confused. Chest is clear. Cardiac exam demonstrates sinus tachycardia. Abdomen is soft and no definite masses. Bowel sounds are present. IMPRESSION: 1. Acute alcohol intoxication. 2. Chronic alcoholism. 3. Delirium tremens. 4. Chronic obstructive pulmonary disease. 5. Electrolyte imbalance. PLAN: 1. Bedrest. 2. IV fluids. 3. CIWA protocol. 4. Rehydrate. 5. Correct electrolytes. MMJUDITHL / SHAW: [id number] /
--- NOTE | 2021-06-01 18:54 | PN ---
PROGRESS NOTE DATE OF SERVICE: 06/01/2021 CHIEF COMPLAINT: 1. Acute alcoholic intoxication. 2. Chronic alcoholism. 3. DTs. HISTORY OF PRESENT ILLNESS: This gentleman is doing fairly well and he has become a little bit more alert. He is complaining of some lower abdominal discomfort without any vomiting, diarrhea, urinary complaints, etc. PHYSICAL EXAMINATION: Chest is clear. Cardiac exam is normal. The abdomen is soft, nontender, but the abdomen is protuberant. IMPRESSION: 1. Acute alcohol intoxication. 2. Chronic alcoholism. 3. Delirium tremens. 4. Elevated lipase. 5. Lower abdominal pain. PLAN: 1. Continue with [facility] protocol. 2. ( ). 3. CT of the abdomen and pelvis. MMODL / IJN: [id number] /
[2021-06-02 07:46] VITALS: BP 122/85; PULSE 93; RESP 17; TEMP 98.4
[2021-06-02] MEDS: THIAMINE 100 MG TAB PO SCH (08:14)
[2021-06-02] MEDS: NICOTINE 14MG/24HR PATCH TRANSDERM SCH (08:14)
[2021-06-02] MEDS: PANTOPRAZOLE 40 MG TABLET PO SCH (08:14)
[2021-06-02] MEDS: SODIUM CHLORIDE TAB 1 GM TAB PO SCH (08:14)
[2021-06-02] MEDS: BENZOCAINE/MENTHOL LOZENG 1 EACH LOZENGE MUCOUS MEM PRN (08:17)
[2021-06-02] MEDS ORDERED: NON FORMULARY DRUG (Omeprazole 20 MG Capsule.Dr) PO SCH (09:00)
[2021-06-02] MEDS ORDERED: NON FORMULARY DRUG (Thiamine Hcl [Vitamin B-1] 100 MG Tablet) PO SCH (09:00)
--- NOTE | 2021-06-02 09:27 | P.PN ---
Subjective Patient is seen in follow-up for hyponatremia. Sodium level 126 as of yesterday. Labs from today are pending. Oral intake slowly improving. No v omiting or diarrhea. Has been voiding. No chest pain or shortness of breath. Vital signs are stable. General: The patient appeared well nourished and normally developed. HEENT: Head exam is unremarkable. Neck is without jugular venous distension. LUNGS: Breath sounds decreased. HEART: Rate and Rhythm are regular. ABDOMEN: Soft, no distention. EXTREMITITES: No edema. Objective - Vital Signs Vital signs: Vital Signs Temp 98.4 F 06/02/21 07:45 Pulse 93 06/02/21 07:45 Resp 17 06/02/21 07:45 BP 122/85 06/02/21 07:45 Pulse Ox 96 06/02/21 07:45 Intake & Output 06/01/21 06/02/21 06/02/21 18:59 06:59 18:59 Intake Total 1080 480 Output Total 360 Balance 720 480 Intake: Oral 1080 480 Output: Urine 360 Other: Voiding Method Urinal Urinal # Voids 3 5 # Bowel Movements 1 3 - Labs CBC & Chem 7: 06/01/21 07:49 06/01/21 07:49 Labs: Abnormal Lab Results - Last 24 Hours (Table) 06/01/21 Range/Units 07:49 RBC 3.26 L (4.40-5.60) X 10*6/uL Hgb 11.1 L (13.0-17.0) g/dL Hct 32.9 L (39.6-50.0) % MCV 100.9 H (80.0-97.0) fL MCH 34.0 H (27.0-32.0) pg RDW 15.0 H (11.5-14.5) % Assessment and Plan Plan: Assessment: 1. Hypovolemic hyponatremia with component of poor solute intake. Sodium level 121 on admission - 126 as of yesterday. TSH normal. 2. Hypokalemia from poor intake and hypomagnesemia. Replaced. Better. 3. Hypomagnesemia from poor intake, diarrhea and alcohol-induced renal losses. Replaced. 4. Metabolic acidosis from diarrhea. Resolved. 5. Alcohol abuse. Plan: Remains off IV fluids. Maintain sodium chloride tabs. Encourage oral intake, particularly protein. 1500 mL fluid restriction. Morning labs pending.
--- NOTE | 2021-06-02 13:57 | DS ---
DISCHARGE SUMMARY CHIEF COMPLAINT: Acute alcohol intoxication and DTs. HISTORY OF PRESENT ILLNESS AND PHYSICAL EXAMINATION: Details of this man's history and physical can be found in the initial workup. LABORATORY STUDIES: While he was in the hospital, he had laboratory studies, details of which can be found in the laboratory section of her chart. COURSE IN THE HOSPITAL: After admission, he was placed on bedrest and started on intravenous fluids and CIWA protocol. Initially he was quite lethargic and somewhat tremulous, but this improved. He was oriented, alert, not in DTs, but was anxious to be discharged on the . He will go home on his usual activity, diet, medication, and will be contacted by my office for followup in the next day or two. FINAL DIAGNOSES: 1. Acute alcohol intoxication. 2. DTs. 3. Chronic alcoholism. 4. Lower abdominal pain. 5. Chronic obstructive pulmonary disease. OPERATIONS: None. CONSULTATION: None. He is improved. MMCHANA / SHAW: [id number] /
[2021-06-02 14:14] LABS: African American GFR (CKD) 132.1 (60.0-200.0); Anion Gap 10.6 mmol/L (4.00-12.00); Calcium 9.4 mg/dL (8.7-10.3); Carbon Dioxide 23.4 mmol/L (21.6-31.8); Magnesium 1.4 mg/dL (1.5-2.4)
== END 2021-06-02 12:45 | disposition home or self-care (01) | DRG 897 ==
LOC: EC 22:24 → 4SSUR 05-31 00:26
PROVIDERS: ADMIT Family Medicine; ATTEND Family Medicine
DX: F10.229 Alcohol dependence with intoxication, unspecified (principal); E87.1 Hypo-osmolality and hyponatremia; E87.2 Acidosis; F10.231 Alcohol dependence with withdrawal delirium; E83.42 Hypomagnesemia; E86.1 Hypovolemia; R19.7 Diarrhea, unspecified; K21.9 Gastro-esophageal reflux disease without esophagitis; E87.6 Hypokalemia; F17.210 Nicotine dependence, cigarettes, uncomplicated; F31.9 Bipolar disorder, unspecified; G40.909 Epilepsy, unspecified, not intractable, without status epilepticus; J44.9 Chronic obstructive pulmonary disease, unspecified; Z80.0 Family history of malignant neoplasm of digestive organs; Z81.8 Family history of other mental and behavioral disorders; Z82.49 Family history of ischemic heart disease and other diseases of the circulatory system; Z91.81 History of falling; Z87.01 Personal history of pneumonia (recurrent); Z90.89 Acquired absence of other organs
CPT/HCPCS: 74177; 80048; 80053; 80320; 83690; 83735; 84100; 84295; 84443; 85025; 93005; 96361; 96374; 99285

== ENCOUNTER → 2021-06-13 | Outpatient (CLI) | payer MEDICARE, OTHER ==
[2021-06-13 12:55] VITALS: BP 97/64; PULSE 117; RESP 18; TEMP 98.1
--- NOTE | 2021-06-13 13:02 | P.PN ---
Subjective Progress Note Date: 06/13/21 This is a 55-year-old gentleman with history of occipital headache and poss ible occipital neuralgia. The patient had occipital nerve block twice which helped his pain moderately as he states. The patient has history of alcoholism and he still consumes large amount of [place] every day. His headache does not get worse with neck movement. Patient denies new-onset weakness, bowel/bladder incontinence, or any other signs or symptoms of cauda equina syndrome. There are no signs of acute intoxication, and no indications of medication diversion or overuse. In addition to above, 13-point review of systems is also negative for chest pain, shortness of breath, changes in vision, changes in hearing, new onset weakness, abdominal pain, diarrhea, extreme fatigue, malaise, fever, skin changes, homicidal or suicidal ideation, or bowel or bladder incontinence. Vital Signs: Reviewed in EMR Gen: AAOx3, NAD HEENT: PERRLA,hearing grossly normal Pulm: resp unlabored Neck: supple, trachea midline Positive Tenderness in the paravertebral musculature: Of the cervical spine Normal range of motion of the cervical spine Positive tenderness in the occipital area bilaterally Neuro: CN II-XII grossly intact, Imaging: Reviewed in EMR/chart Assessment: Possible occipital neuralgia Alcoholism Plan: 1. Explanation: Opioid and psychological risk scores were reviewed. Diagnoses, prognoses, and multiple treatment options including but not limited to physical therapy, interventional therapies, adjuvant medical therapies, narcotic medication therapies, and surgery were discussed with the patient and all questions were answered to the patient's satisfaction. 2. Opioid agreement: Signed with the patient and the patient is warned not to use opioids while driving or before driving and not to combine opioids with benzodiazepines or alcohol. 3. Counseling: The patient was counseled extensively on SMOKING CESSATION, BODY MASS INDEX, EXERCISE. Specifically, the patient was instructed regarding the importance of smoking cessation, obesity, and exercise in the context of both chronic pain and overall health. 4. Procedures: The patient would like us to proceed with a lumbar occipital nerve block. I told him that is similar to avoid doing of these injections however we will do this as the last injection and then we'll see him as needed afterwards and hopefully will not need to repeat this injection for a few months from now. 5. Consultations: None 6. Investigations: None 7. Medications: Prescribed 8. Disposition: Proceed with the above-mentioned procedure and then he will be seen on an as-needed basis afterwards 9. Maps were reviewed and were appropriate. Objective - Vital Signs Vital signs: Vital Signs Temp 98.1 F 06/13/21 12:46 Pulse 117 H 06/13/21 12:46 Resp 18 06/13/21 12:46 BP 97/64 06/13/21 12:46 Pulse Ox 94 L 06/13/21 12:46
== END ==
LOC: PNWHC3 12:31
PROVIDERS: ATTEND Anesthesiology
DX: R51.9 Headache, unspecified (principal); F10.20 Alcohol dependence, uncomplicated; F17.200 Nicotine dependence, unspecified, uncomplicated; Z71.82 Exercise counseling
CPT/HCPCS: 99211

== ENCOUNTER 2021-08-16 02:00 | Inpatient (IN) | payer MEDICARE, OTHER ==
[2021-08-16] MEDS ORDERED: SODIUM CHLORIDE 0.9% 1,000 ML IV STA (02:20)
[2021-08-16] MEDS ORDERED: LORazepam 2 MG/ML INJ IV PRN (02:20)
[2021-08-16] MEDS ORDERED: LORazepam 2 MG/ML INJ IV STA (02:21)
[2021-08-16 02:43] LABS: Basophils % (A) 0 %; Eosinophils # (A) 0.1 k/uL (0-0.7); Eosinophils % (A) 3 %; HCT 34.6 % (39.0-53.0); HGB 11.7 gm/dL (13.0-17.5); Lymphocytes # (A) 1.3 k/uL (1.0-4.8); Lymphocytes % (A) 32 %; MCH 36.7 pg (25.0-35.0); MCHC 33.8 g/dL (31.0-37.0); MCV 108.8 fL (80.0-100.0); Macrocytosis Marked; Mean Platelet Volume 8.1; Monocytes # (A) 0.3 k/uL (0-1.0); Monocytes % (A) 6 %; Neutrophils # (A) 2.3 k/uL (1.3-7.7); Neutrophils % (A) 56 %; Platelet Count 139 k/uL (150-450); RBC 3.18 m/uL (4.30-5.90); RDW 14.2 % (11.5-15.5); WBC 4.1 k/uL (3.8-10.6)
[2021-08-16 02:52] LABS: ALT 69 U/L (4-49); AST 118 U/L (17-59); African American GFR (CKD) >90 (>60 ml/min/1.73 sqM); Albumin 4.6 g/dL (3.5-5.0); Alkaline Phosphatase 75 U/L (38-126); Anion Gap 16 mmol/L; Blood Urea Nitrogen 6 mg/dL (9-20); Calcium 8.9 mg/dL (8.4-10.2); Carbon Dioxide 18 mmol/L (22-30); Chloride 93 mmol/L (98-107); Glucose 136 mg/dL (74-99); Magnesium 1.1 mg/dL (1.6-2.3); Non-African American GFR(CKD) >90 (>60 ml/min/1.73 sqM); Potassium 3.4 mmol/L (3.5-5.1); Sodium 127 mmol/L (137-145); Total Bilirubin 0.7 mg/dL (0.2-1.3); Total Protein 7.8 g/dL (6.3-8.2)
[2021-08-16 02:58] LABS: Partial Thromboplastin Time 27.5 sec (22.0-30.0); Prothrombin Time 10.7 sec (9.0-12.0)
[2021-08-16 03:33] LABS: Poikilocytosis (M) Present
[2021-08-16] MEDS: MAGNESIUM SULFATE-D5W PMX 1 GM in DEXTROSE/WATER 1 100ML.BAG IVPB SCH ×2 (04:07→05:36)
[2021-08-16 06:14] LABS: Appearance,Urine Clear (Clear); Bilirubin,Urine Negative (Negative); Blood,Urine Negative (Negative); Color,Urine Colorless; Glucose,Urine (UA) Negative (Negative); Ketones,Urine Negative (Negative); Leukocyte Esterase,Urine Negative (Negative); Nitrite,Urine Negative (Negative); Protein,Urine Negative (Negative); Specific Gravity,Urine 1.004 (1.001-1.035); Urobilinogen,Urine <2.0 mg/dL (<2.0)
[2021-08-16] MEDS ORDERED: MAG HYDROX/AL HYDROX/SIMETH 30 ML CUP PO PRN (06:20)
[2021-08-16] MEDS ORDERED: ONDANSETRON 4 MG/2 ML VIAL IVP PRN (06:20)
[2021-08-16] MEDS ORDERED: NALOXONE 0.4 MG/ML 1 ML VIAL IV PRN (06:20)
[2021-08-16] MEDS: LORazepam 2 MG/ML INJ IV PRN ×5 (06:22→20:32)
--- NOTE | 2021-08-16 06:25 | ED ---
Fall HPI - General Chief Complaint: Fall Stated Complaint: Weakness,Fall Time Seen by Provider: 08/16/21 02:11 Source: patient, EMS Mode of arrival: EMS - History of Present Illness MD Complaint: fall -: hour(s) Fall From: standing When Fall Occurred: 1 hour TWISTHAND Fall Witnessed: yes, by family Place Fall Occurred: home Loss of Consciousness: none Prolonged Down Time?: no Symptoms Prior to Fall: none - Related Data Home Medications Medication Instructions Recorded Confirmed Omeprazole [PriLOSEC] 20 mg PO DAILY 12/02/19 06/09/21 Acetaminophen [Tylenol Extra 1,000 mg PO Q4-6H PRN 04/26/21 06/09/21 Strength] Cholecalciferol [Vitamin D3 (25 125 mcg PO DAILY 05/30/21 06/09/21 Mcg = 1000 Iu)] Thiamine HCl [Vitamin B-1] 100 mg PO DAILY 05/30/21 06/09/21 Magnesium 200 mg PO DAILY 06/09/21 06/09/21 Vitamin B Complex 1 each PO DAILY 06/09/21 06/09/21 traMADol HCL [Ultram] 50 mg PO Q4HR PRN 06/13/21 06/13/21 Allergies Allergy/AdvReac Type Severity Reaction Status Date / Time No Known Allergies Allergy Verified 06/09/21 14:48 Review of Systems ROS Statement: Those systems with pertinent positive or pertinent negative responses have been documented in the HPI. ROS Other: All systems not noted in ROS Statement are negative. Constitutional: Reports: weakness. Denies: fever, chills Eyes: Denies: vision change Respiratory: Denies: cough, dyspnea Cardiovascular: Denies: chest pain, palpitations, edema Gastrointestinal: Denies: abdominal pain, nausea, vomiting Musculoskeletal: Denies: back pain Skin: Denies: rash Neurological: Denies: headache, weakness, numbness Past Medical History Past Medical History: COPD, GERD/Reflux, Pneumonia, Seizure Disorder, Syncope Additional Past Medical History / Comment(s): Severe ETOH abuse, alcohol withdrawal seizures/DTs, aspiration pneumonia, encephalopathy d/t alcohol, falls, thrombocytopenia, mastoiditis with surgery, chronic SOB. States is currently drinking again. History of Any Multi-Drug Resistant Organisms: None Reported Past Surgical History: Ear Surgery, Tonsillectomy Additional Past Surgical History / Comment(s): Bilateral mastoidectomies, sinus surgery and vocal cord scraping, cataract surgery, Past Anesthesia/Blood Transfusion Reactions: No Reported Reaction Past Psychological History: Anxiety, Bipolar, Depression Smoking Status: Current every day smoker Past Alcohol Use History: Daily, Heavy Past Drug Use History: None Reported - Past Family History Father Family Medical History: Cancer Additional Family Medical History / Comment(s): Father was a stomach cancer survivor. He of spinal stenosis at the age of 88yrs. Mother Family Medical History: Hyperlipidemia Additional Family Medical History / Comment(s): Mother is living and is 85 yrs old. Brother(s) Additional Family Medical History / Comment(s): Bipolar, schizoprenia General Exam Limitations: no limitations General appearance: alert, in no apparent distress, anxious Head exam: Present: atraumatic, normocephalic Eye exam: Present: normal appearance. Absent: scleral icterus, conjunctival injection Neck exam: Present: normal inspection Respiratory exam: Present: normal lung sounds bilaterally. Absent: respiratory distress, wheezes, rales, rhonchi, stridor Cardiovascular Exam: Present: regular rate, normal rhythm, normal heart sounds. Absent: systolic murmur, diastolic murmur, rubs, gallop GI/Abdominal exam: Present: soft. Absent: distended, tenderness, guarding, rebound, rigid, mass Extremities exam: Present: normal inspection, normal capillary refill. Absent: pedal edema, calf tenderness Back exam: Present: normal inspection. Absent: CVA tenderness (R), CVA tendern ess (L) Neurological exam: Present: alert, other (Tremulous). Absent: motor sensory deficit Psychiatric exam: Present: anxious. Absent: suicidal ideation Skin exam: Present: warm, dry, intact, normal color. Absent: rash Course Vital Signs 08/16/21 08/16/21 08/16/21 02:03 03:17 04:08 Temperature 97.6 F Pulse Rate 68 71 68 Respiratory 18 18 18 Rate Blood Pressure 120/77 104/73 104/75 O2 Sat by Pulse 98 94 L 99 Oximetry 08/16/21 08/16/21 05:30 06:24 Temperature Pulse Rate 79 96 Respiratory 18 18 Rate Blood Pressure 107/79 112/77 O2 Sat by Pulse 98 94 L Oximetry Medical Decision Making - Lab Data Result diagrams: 08/16/21 02:33 08/16/21 02:33 Lab Results 08/16/21 08/16/21 08/16/21 Range/Units 02:33 02:33 02:33 WBC 4.1 (3.8-10.6) k/uL RBC 3.18 L (4.30-5.90) m/uL Hgb 11.7 L (13.0-17.5) gm/dL Hct 34.6 L (39.0-53.0) % MCV 108.8 H (80.0-100.0) fL MCH 36.7 H (25.0-35.0) pg MCHC 33.8 (31.0-37.0) g/dL RDW 14.2 (11.5-15.5) % Plt Count 139 L (150-450) k/uL MPV 8.1 Neutrophils % 56 % Lymphocytes % 32 % Monocytes % 6 % Eosinophils % 3 % Basophils % 0 % Neutrophils # 2.3 (1.3-7.7) k/uL Lymphocytes # 1.3 (1.0-4.8) k/uL Monocytes # 0.3 (0-1.0) k/uL Eosinophils # 0.1 (0-0.7) k/uL Basophils # 0.0 (0-0.2) k/uL Manual Slide Review Performed Poikilocytosis (manual Present Macrocytosis Marked A PT 10.7 (9.0-12.0) sec INR 1.0 (<1.2) APTT 27.5 (22.0-30.0) sec Sodium 127 L (137-145) mmol/L Potassium 3.4 L (3.5-5.1) mmol/L Chloride 93 L (98-107) mmol/L Carbon Dioxide 18 L (22-30) mmol/L Anion Gap 16 mmol/L BUN 6 L (9-20) mg/dL Creatinine 0.68 (0.66-1.25) mg/dL Est GFR (CKD-EPI)AfAm >90 (>60 ml/min/1.73 sqM) Est GFR (CKD-EPI)NonAf >90 (>60 ml/min/1.73 sqM) Glucose 136 H (74-99) mg/dL Calcium 8.9 (8.4-10.2) mg/dL Magnesium 1.1 L (1.6-2.3) mg/dL Total Bilirubin 0.7 (0.2-1.3) mg/dL AST 118 H (17-59) U/L ALT 69 H (4-49) U/L Alkaline Phosphatase 75 (38-126) U/L Troponin I (0.000-0.034) ng/mL Total Protein 7.8 (6.3-8.2) g/dL Albumin 4.6 (3.5-5.0) g/dL Urine Color Urine Appearance (Clear) Urine pH (5.0-8.0) Ur Specific Sidman (1.001-1.035) Urine Protein (Negative) Urine Glucose (UA) (Negative) Urine Ketones (Negative) Urine Blood (Negative) Urine Nitrite (Negative) Urine Bilirubin (Negative) Urine Urobilinogen (<2.0) mg/dL Ur Leukocyte Esterase (Negative) 08/16/21 08/16/21 Range/Units 02:33 06:00 WBC (3.8-10.6) k/uL RBC (4.30-5.90) m/uL Hgb (13.0-17.5) gm/dL Hct (39.0-53.0) % MCV (80.0-100.0) fL MCH (25.0-35.0) pg MCHC (31.0-37.0) g/dL RDW (11.5-15.5) % Plt Count (150-450) k/uL MPV Neutrophils % % Lymphocytes % % Monocytes % % Eosinophils % % Basophils % % Neutrophils # (1.3-7.7) k/uL Lymphocytes # (1.0-4.8) k/uL Monocytes # (0-1.0) k/uL Eosinophils # (0-0.7) k/uL Basophils # (0-0.2) k/uL Manual Slide Review Poikilocytosis (manual Macrocytosis PT (9.0-12.0) sec INR (<1.2) APTT (22.0-30.0) sec Sodium (137-145) mmol/L Potassium (3.5-5.1) mmol/L Chloride (98-107) mmol/L Carbon Dioxide (22-30) mmol/L Anion Gap mmol/L BUN (9-20) mg/dL Creatinine (0.66-1.25) mg/dL Est GFR (CKD-EPI)AfAm (>60 ml/min/1.73 sqM) Est GFR (CKD-EPI)NonAf (>60 ml/min/1.73 sqM) Glucose (74-99) mg/dL Calcium (8.4-10.2) mg/dL Magnesium (1.6-2.3) mg/dL Total Bilirubin (0.2-1.3) mg/dL AST (17-59) U/L ALT (4-49) U/L Alkaline Phosphatase (38-126) U/L Troponin I <0.012 (0.000-0.034) ng/mL Total Protein (6.3-8.2) g/dL Albumin (3.5-5.0) g/dL Urine Color Colorless Urine Appearance Clear (Clear) Urine pH 7.0 (5.0-8.0) Ur Specific Sidman 1.004 (1.001-1.035) Urine Protein Negative (Negative) Urine Glucose (UA) Negative (Negative) Urine Ketones Negative (Negative) Urine Blood Negative (Negative) Urine Nitrite Negative (Negative) Urine Bilirubin Negative (Negative) Urine Urobilinogen <2.0 (<2.0) mg/dL Ur Leukocyte Esterase Negative (Negative) - EKG Data -: EKG Interpreted by [facility] EKG shows normal: sinus rhythm, axis (Normal), intervals (Normal), QRS complexes (Normal) Rate: normal (Rate 68 bpm) Interpretation: nonspecific ST-T wave changes Disposition Clinical Impression: Fall, Alcohol dependence with withdrawal, Hyponatremia, Hypomagnesemia Disposition: ADMITTED IP TO THIS [facility] Condition: Fair
[2021-08-16] MEDS: SODIUM CHLORIDE 0.9% 1,000 ML IV SCH ×2 (07:08→13:50)
[2021-08-16] MEDS: FAMOTIDINE 20 MG TAB PO SCH ×2 (09:25→20:13)
[2021-08-16] MEDS ORDERED: ONDANSETRON 4 MG TAB PO PRN (11:03)
[2021-08-16] MEDS: SUCRALFATE 1 GM TAB PO SCH ×3 (12:26→20:13)
[2021-08-16] MEDS: ALBUTEROL NEBULIZED 2.5 MG/3 ML INHALATION PRN (15:03)
--- NOTE | 2021-08-16 17:24 | HP ---
HISTORY AND PHYSICAL CHIEF COMPLAINT: General weakness, debility, dehydration and acute alcohol intoxication. HISTORY OF PRESENT ILLNESS: This is another admission for this chronic alcoholic. He presented to the emergency room, where he was found to be dehydrated and have low sodium and magnesium. He had just been in the office the day before. REVIEW OF SYSTEMS: He has been having blackouts. He has had no diplopia. He has had no chest pain. He has had a slight nonproductive cough. Cardiac exam has been normal with no chest pain. The abdomen is soft and nontender and he has had no hematemesis, melena, hematochezia, jaundice, hematuria, frequency, urgency, incontinence, renal failure, diabetes, etc. Past medical history, family history, and personal and social histories are all otherwise unremarkable, noncontributory or unchanged. He drinks at least a pint a day. PHYSICAL EXAMINATION: Blood pressure is 140/90 with a pulse of 82, respirations of 35, and he is afebrile. In general he appeared to be of poor color and chronically ill. He was not jaundiced. Head, ears, eyes, nose, mouth and throat were unremarkable. There is no icterus. Chest is clear. Cardiac exam demonstrated tachycardia with no murmurs or extra sounds. The abdomen is slightly protuberant, soft and nontender without visceromegaly or masses. Bowel sounds are present. Extremities are normal except for poor muscle development and bulk. Neurologically he is somewhat tremulous, but intact. He is admitted to the hospital with the diagnoses: 1. Generalized weakness and debility. 2. Hyponatremia. 3. Hypomagnesemia. 4. Chronic alcoholism. 5. Chronic obstructive pulmonary disease. 6. Depression. 7. Probable impending delirium tremens. PLAN: 1. Bedrest. 2. IV fluids. 3. CIWA protocol. MMODL / IJN: [id number] /
[2021-08-16] MEDS: PANTOPRAZOLE 40 MG TABLET PO SCH (17:29)
[2021-08-16] MEDS: THIAMINE 100 MG TAB PO SCH (17:29)
[2021-08-16] MEDS: METOCLOPRAMIDE 10 MG TAB PO SCH (20:13)
[2021-08-17] MEDS: SODIUM CHLORIDE 0.9% 1,000 ML IV SCH ×2 (01:03→12:06)
[2021-08-17] MEDS: LORazepam 2 MG/ML INJ IV PRN ×5 (01:03→20:09)
[2021-08-17] MEDS: PANTOPRAZOLE 40 MG TABLET PO SCH ×2 (07:58→16:32)
[2021-08-17] MEDS: SUCRALFATE 1 GM TAB PO SCH ×4 (07:58→19:55)
[2021-08-17] MEDS: FAMOTIDINE 20 MG TAB PO SCH ×2 (07:58→19:55)
[2021-08-17] MEDS: THIAMINE 100 MG TAB PO SCH ×2 (07:59→16:32)
[2021-08-17] MEDS ORDERED: MAGNESIUM OXIDE 400 MG TAB PO SCH (09:00)
[2021-08-17] MEDS: ALBUTEROL NEBULIZED 2.5 MG/3 ML INHALATION PRN (11:15)
[2021-08-17] MEDS: ACETAMINOPHEN TAB 325 MG TAB PO PRN ×2 (12:09→17:24)
--- NOTE | 2021-08-17 13:54 | CT ---
EXAMINATION TYPE: CT brain wo con DATE OF EXAM: 08/17/2021 HISTORY: Weakness, falls, headache, alcohol withdrawal CT DLP: 1074.4 mGycm. Automated Exposure Control for Dose Reduction was Utilized. TECHNIQUE: CT scan of the head is performed without contrast. COMPARISON: CT brain December 28, 2020. FINDINGS: There is no acute intracranial hemorrhage or midline shift identified. There is mild to m oderate diffuse ventricular and sulcal prominence consistent with diffuse age-related cerebral atroph y. There is mild low-attenuation in the periventricular white matter consistent with chronic small v essel ischemic change. Persistent moderate mucosal thickening right maxillary sinus and mild mucosal thickening left maxillary sinus with some dependent fluid. The calvarium is intact. Nasal septum re herman deviated to left of midline. IMPRESSION: No acute intracranial hemorrhage or midline shift. There is mild to moderate diffuse ce rebral atrophy and mild chronic small vessel ischemic change redemonstrated. No significant change fr om prior CT. Acute on chronic bilateral maxillary sinus noted currently.
[2021-08-17] MEDS ORDERED: NICOTINE 21MG/24HR PATCH TRANSDERM SCH (16:15)
--- NOTE | 2021-08-17 18:27 | PN ---
PROGRESS NOTE CHIEF COMPLAINT: Acute alcohol intoxication and DTs. HISTORY OF PRESENT ILLNESS: This gentleman is somewhat shaky. He is awake and alert. He has been having blackouts and syncopal episodes at home and neurologic evaluation will be ordered while he is in the hospital. PHYSICAL EXAMINATION: Chest is clear. Cardiac exam is normal. Abdomen is soft, nontender and appears to be chronically ill. IMPRESSION: 1. Acute alcohol intoxication. 2. Chronic alcoholism. 3. DTs. 4. History of blackouts. PLAN: 1. Continue with [facility] protocol. 2. CT of the brain, EEG. MMODL / IJN: [id number] /
[2021-08-17] MEDS: METOCLOPRAMIDE 10 MG TAB PO SCH (19:55)
[2021-08-17 20:39] VITALS: RESP 17
[2021-08-18] MEDS: ACETAMINOPHEN TAB 325 MG TAB PO PRN (00:07)
[2021-08-18] MEDS: LORazepam 2 MG/ML INJ IV PRN (00:42)
[2021-08-18] MEDS: ALBUTEROL NEBULIZED 2.5 MG/3 ML INHALATION PRN (01:52)
[2021-08-18] MEDS: SODIUM CHLORIDE 0.9% 1,000 ML IV SCH (01:57)
[2021-08-18 03:56] VITALS: BP 135/75; PULSE 108; TEMP 99.1
--- NOTE | 2021-08-18 18:18 | DS ---
DISCHARGE SUMMARY DATE OF DISCHARGE: 08/18/2021 CHIEF COMPLAINT: Acute alcohol intoxication, chronic alcoholism and DTs. HISTORY OF PRESENT ILLNESS AND PHYSICAL EXAMINATION: Details of this man's history and physical can be found in the initial workup. LABORATORY STUDIES: While he was in the hospital he had laboratory studies, details of which can be found in the laboratory section of his chart. COURSE IN THE HOSPITAL: After admission he was placed on bedrest and started on intravenous fluids and CIWA protocol. Early in the morning of his discharge, nurses discovered a bag in his room and numerous bottle filled with alcohol. The alcohol level was obtained and materials were confiscated. He later signed himself out early in the morning. FINAL DIAGNOSIS: 1. Acute alcohol intoxication. 2. Delirium tremens. 3. Chronic alcoholism. 4. Chronic obstructive pulmonary disease. OPERATIONS: None. CONSULTATIONS: None. ANGELICA / SHAW: [id number] /
== END 2021-08-18 07:38 | disposition left against medical advice (07) | DRG 894 ==
LOC: EC 02:00 → 4SSUR 06:20
PROVIDERS: ADMIT Family Medicine; ATTEND Family Medicine
DX: F10.231 Alcohol dependence with withdrawal delirium (principal); E87.1 Hypo-osmolality and hyponatremia; E83.42 Hypomagnesemia; F10.229 Alcohol dependence with intoxication, unspecified; E86.0 Dehydration; F17.200 Nicotine dependence, unspecified, uncomplicated; F31.9 Bipolar disorder, unspecified; G40.909 Epilepsy, unspecified, not intractable, without status epilepticus; J44.9 Chronic obstructive pulmonary disease, unspecified; Z20.822 Contact with and (suspected) exposure to COVID-19; Z80.0 Family history of malignant neoplasm of digestive organs; K21.9 Gastro-esophageal reflux disease without esophagitis; W18.30XA Fall on same level, unspecified, initial encounter
CPT/HCPCS: 36415; 70450; 80053; 80320; 81003; 83735; 84484; 85025; 85610; 85730; 87635; 93005; 94640; 96361; 96365; 96375; 99285

== ENCOUNTER 2021-09-13 13:24 | Day surgery (SDC) | payer MEDICARE, OTHER ==
[2021-09-12 10:06] VITALS: BMI 23.0
[2021-09-13 13:42] VITALS: TEMP 97.5
--- NOTE | 2021-09-13 13:49 | P.PCN ---
Date of Procedure: 09/13/21 Surgeon: Prosper Ulrich Pathology: none sent Condition: stable Disposition: PACU Description of Procedure: Preoperative diagnoses= 1- Greater occipital neuralgia. 2-headache Postoperative diagnoses= same as preoperative diagnosis. Procedure= Bilateral Greater occipital nerve block Anesthesia: local only with lidocaine 1% . Estimated blood loss=negligible. Procedure indication= the patient had a history of severe chronic neck pain ,and headache, diagnosed with occipital neuralgia exam was positive for severe tenderness over the occipital nerve bilaterally, she will be a good candidate occipital nerve block, patient failed conservative management Procedure description= the patient was seen and identified in the preoperative holding area, risks and benefits and alternative of the procedure and possible complications discussed with the patient, and he agreed with the preceding, patient signed the consent, an IV was started, and vital signs were monitored and were stable throughout the procedure, patient was placed in the sitting position , the occipital area was prepped and draped in a sterile fashion, vital signs were closely monitored during the procedure, 25-gauge 1" needle was advan jacinto 1 inch lateral to the occipital protuberance on the right side, at the location of the right occipital nerve , then after negative aspiration for heme and CSF I injected 2 ml of Robivacaine 0.5% and 20 mg of Kenalog after negative aspiration, the needle removed, and the entire same procedure was repeated for the left Greater occipital nerve. Patient tolerated the procedure well without any complication.total dose of steroids used for this procedure was 40 mg of Kenalog. The patient returned to supine position after the back was cleaned and a Band- Aid applied, the patient transported to recovery room in stable condition and he was monitored for 30 minutes before he was discharged home and then patient was reexamined before going home and patient was discharged in stable condition and patient will follow up with the pain clinic in a few weeks.
[2021-09-13 13:55] VITALS: RESP 16
[2021-09-13 14:14] VITALS: BP 124/82; PULSE 87
== END 2021-09-13 14:19 | disposition home or self-care (01) ==
LOC: ORPAIN 13:24
PROVIDERS: ATTEND Anesthesiology
DX: M54.81 Occipital neuralgia (principal)
CPT/HCPCS: 64405

== ENCOUNTER → 2021-09-30 | Outpatient (CLI) | payer MEDICARE, OTHER ==
[2021-09-30 13:26] LABS: African American GFR (CKD) >90 (>60 ml/min/1.73 sqM); Anion Gap 17 mmol/L; Blood Urea Nitrogen 14 mg/dL (9-20); Calcium 9.2 mg/dL (8.4-10.2); Carbon Dioxide 18 mmol/L (22-30); Chloride 88 mmol/L (98-107); Glucose 126 mg/dL (74-99); Magnesium 1.6 mg/dL (1.6-2.3); Non-African American GFR(CKD) >90 (>60 ml/min/1.73 sqM); Potassium 4.8 mmol/L (3.5-5.1); Sodium 123 mmol/L (137-145)
[2021-09-30 20:02] LABS: Basophils # (A) 0.02 X 10*3/uL (0.00-0.10); Basophils % (A) 0.5 %; Eosinophils # (A) 0 X 10*3/uL (0.04-0.35); Eosinophils % (A) 0 %; HGB 10.3 g/dL (13.0-17.0); Lymphocytes % (A) 10.6 %; MCHC 34.3 g/dL (32.0-37.0); MCV 104.9 fL (80.0-97.0); Mean Platelet Volume 9.2 fL (9.5-12.2); Monocytes # (A) 0.17 X 10*3/uL (0.20-1.00); Monocytes % (A) 4.5 %; Neutrophils # (A) 3.17 X 10*3/uL (1.80-7.70); Neutrophils % (A) 83.6 %; Platelet Count 270 X 10*3/uL (140-440); RBC 2.86 X 10*6/uL (4.40-5.60); WBC 3.79 X 10*3/uL (4.50-10.00)
[2021-09-30 23:01] LABS: Iron 147 ug/dL (65-175); Total Iron Binding Capacity 420 ug/dL (228-460)
== END | disposition home or self-care (01) ==
LOC: LABWHC1 12:16
PROVIDERS: ATTEND Nurse Practitioner Family
DX: D64.9 Anemia, unspecified (principal); E87.1 Hypo-osmolality and hyponatremia
CPT/HCPCS: 36415; 80048; 82728; 83540; 83550; 83735; 83930; 83935; 84300; 85025

== ENCOUNTER 2021-10-25 20:24 | Inpatient (IN) | payer MEDICARE, OTHER ==
--- NOTE | 2021-10-25 21:26 | XR ---
EXAMINATION TYPE: XR chest 2V DATE OF EXAM: 10/25/2021 COMPARISON: Radiograph 12/28/2020 HISTORY: Shortness of breath. TECHNIQUE: Frontal and lateral views of the chest are obtained. FINDINGS: Emphysematous lungs. There is no focal air space opacity, pleural effusion, or pneumothorax seen. The cardiac silhouette size is within normal limits. The osseous structures are intact. IMPRESSION: Emphysematous lungs. No acute cardiopulmonary process.
[2021-10-25] MEDS ORDERED: LORazepam 2 MG/ML INJ IV STA (21:47)
[2021-10-25] MEDS ORDERED: SODIUM CHLORIDE 0.9% 1,000 ML IV ONE (21:47)
--- NOTE | 2021-10-25 21:53 | ED ---
Alcohol HPI - General Chief Complaint: Weakness Stated Complaint: Weakness Time Seen by Provider: 10/25/21 21:05 Source: patient, EMS Mode of arrival: EMS Limitations: no limitations - History of Present Illness Initial Comments: This patient is a 56-year-old man who presents with the complaint that "I'm detoxing from drinking." The patient states that he drinks up to 1/5 of vodka per day. His last drink was this morning. The patient states he is feeling weak, tremulous and anxious. He reports he has previously had seizures when he stops drinking. Patient denies recent fall or injury. No other complaints. MD Complaint: alcohol withdrawal Time Since Last Drink: 12 -: hour(s) Associated Symptoms: nausea, tremors Treatments Prior to Arrival: none Chronic Alcohol Use: Yes - Related Data Home Medications Medication Instructions Recorded Confirmed Omeprazole [PriLOSEC] 20 mg PO BID 12/02/19 10/25/21 Cholecalciferol [Vitamin D3 (25 125 mcg PO DAILY 05/30/21 10/25/21 Mcg = 1000 Iu)] Magnesium 200 mg PO DAILY 06/09/21 10/25/21 Albuterol Sulfate [Proair Hfa] 1 - 2 puff INHALATION RT-Q6H PRN 08/16/21 10/25/21 Metoclopramide [Reglan] 10 mg PO HS PRN 08/16/21 10/25/21 Ondansetron [Zofran] 4 mg PO Q8HR PRN 08/16/21 10/25/21 Sucralfate [Carafate] 1 gm PO ACHS 08/16/21 10/25/21 busPIRone HCL 5 mg PO TID PRN 08/16/21 10/25/21 traZODone HCL 50 - 100 mg PO HS PRN 08/16/21 10/25/21 Albuterol Nebulized [Ventolin 2.5 mg INHALATION RT-QID PRN 10/25/21 10/25/21 Nebulized] Budesonide/Formoterol Fumarate 2 puff INHALATION RT-BID 10/25/21 10/25/21 [Symbicort 160-4.5 Mcg Inhaler] Famotidine [Pepcid] 20 mg PO DAILY 10/25/21 10/25/21 Hydrocortisone Cream 1 applic TOPICAL QID PRN 10/25/21 10/25/21 [Hydrocortisone 2.5% Cream] Ibuprofen [Motrin] 800 mg PO QID PRN 10/25/21 10/25/21 Meclizine HCl 25 mg PO BID PRN 10/25/21 10/25/21 Allergies Allergy/AdvReac Type Severity Reaction Status Date / Time No Known Allergies Allergy Verified 10/25/21 20:31 Review of Systems ROS Statement: Those systems with pertinent positive or pertinent negative responses have been documented in the HPI. ROS Other: All systems not noted in ROS Statement are negative. Constitutional: Reports: weakness. Denies: fever, chills Respiratory: Denies: cough, dyspnea Cardiovascular: Denies: chest pain, palpitations, edema, syncope Gastrointestinal: Reports: nausea. 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 Severe ETOH abuse. Hx alcohol withdrawal seizures/DTs, 1 yr ago, aspiration pneumonia, encephalopathy d/t alcohol, falls, thrombocytopenia, chronic SOB. History of Any Multi-Drug Resistant Organisms: None Reported Past Surgical History: Ear Surgery, Tonsillectomy Additional Past Surgical History / Comment(s): Bilateral mastoidectomies, sinus surgery and vocal cord scraping, cataract surgery, blocks for migraines. Past Anesthesia/Blood Transfusion Reactions: No Reported Reaction, Motion Sickness Past Psychological History: Anxiety, Bipolar, Depression Smoking Status: Current every day smoker Past Alcohol Use History: Daily, Heavy Past Drug Use History: Marijuana - Past Family History Father Family Medical History: Cancer Mother Family Medical History: Hyperlipidemia Brother(s) Additional Family Medical History / Comment(s): Bipolar, schizoprenia. General Exam Limitations: no limitations General appearance: alert, anxious Head exam: Present: atraumatic, normocephalic Eye exam: Present: normal appearance. Absent: scleral icterus, conjunctival injection, nystagmus Neck exam: Present: normal inspection, full ROM. Absent: tenderness Respiratory exam: Present: normal lung sounds bilaterally. Absent: respiratory distress, wheezes, rales, rhonchi, stridor Cardiovascular Exam: Present: regular rate, normal rhythm, normal heart sounds. Absent: systolic murmur, diastolic murmur, rubs, gallop GI/Abdominal exam: Present: soft. Absent: distended, tenderness, guarding, rebound, rigid, mass Extremities exam: Present: normal inspection, normal capillary refill. Absent: pedal edema, calf tenderness Back exam: Present: normal inspection. Absent: CVA tenderness (R), CVA tenderness (L) Neurological exam: Present: alert Skin exam: Present: warm, dry, intact, normal color. Absent: rash Course Vital Signs 10/25/21 10/25/21 10/25/21 20:27 22:45 23:52 Temperature 98.0 F Pulse Rate 99 120 H 122 H Respiratory 19 18 18 Rate Blood Pressure 129/80 101/81 O2 Sat by Pulse 94 L 93 L 98 Oximetry Medical Decision Making - Lab Data Result diagrams: 10/25/21 22:17 10/25/21 22:17 Lab Results 10/25/21 10/25/21 Range/Units 22:17 22:17 WBC 5.4 (3.8-10.6) k/uL RBC 3.36 L (4.30-5.90) m/uL Hgb 12.1 L (13.0-17.5) gm/dL Hct 35.4 L (39.0-53.0) % MCV 105.4 H (80.0-100.0) fL MCH 35.8 H (25.0-35.0) pg MCHC 34.0 (31.0-37.0) g/dL RDW 14.7 (11.5-15.5) % Plt Count 184 (150-450) k/uL MPV 7.5 Neutrophils % 75 % Lymphocytes % 16 % Monocytes % 6 % Eosinophils % 1 % Basophils % 0 % Neutrophils # 4.1 (1.3-7.7) k/uL Lymphocytes # 0.9 L (1.0-4.8) k/uL Monocytes # 0.3 (0-1.0) k/uL Eosinophils # 0.0 (0-0.7) k/uL Basophils # 0.0 (0-0.2) k/uL Macrocytosis Moderate Sodium 130 L (137-145) mmol/L Potassium 5.1 (3.5-5.1) mmol/L Chloride 94 L (98-107) mmol/L Carbon Dioxide 19 L (22-30) mmol/L Anion Gap 17 mmol/L BUN 33 H (9-20) mg/dL Creatinine 0.76 (0.66-1.25) mg/dL Est GFR (CKD-EPI)AfAm >90 (>60 ml/min/1.73 sqM) Est GFR (CKD-EPI)NonAf >90 (>60 ml/min/1.73 sqM) Glucose 70 L (74-99) mg/dL Calcium 9.3 (8.4-10.2) mg/dL Magnesium 1.6 (1.6-2.3) mg/dL Total Bilirubin 0.9 (0.2-1.3) mg/dL AST 110 H (17-59) U/L ALT 43 (4-49) U/L Alkaline Phosphatase 50 (38-126) U/L Total Protein 8.1 (6.3-8.2) g/dL Albumin 4.7 (3.5-5.0) g/dL Serum Alcohol 325 H* mg/dL - EKG Data -: EKG Interpreted by Id EKG shows normal: sinus rhythm, axis (Rightward axis), intervals (Normal), QRS complexes (Normal), ST-T waves (Normal) Rate: tachycardia (Rate 131 bpm) Disposition Clinical Impression: Alcohol dependence with withdrawal, Anemia Disposition: ADMITTED IP TO THIS HOSP Condition: Serious Is patient prescribed a controlled substance at d/c from ED?: No Referrals: None,Stated [Primary Care Provider] - 1-2 days
[2021-10-25 22:44] LABS: Basophils % (A) 0 %; Eosinophils % (A) 1 %; HCT 35.4 % (39.0-53.0); HGB 12.1 gm/dL (13.0-17.5); Lymphocytes # (A) 0.9 k/uL (1.0-4.8); Lymphocytes % (A) 16 %; MCH 35.8 pg (25.0-35.0); MCV 105.4 fL (80.0-100.0); Macrocytosis Moderate; Mean Platelet Volume 7.5; Monocytes # (A) 0.3 k/uL (0-1.0); Monocytes % (A) 6 %; Neutrophils # (A) 4.1 k/uL (1.3-7.7); Neutrophils % (A) 75 %; Platelet Count 184 k/uL (150-450); RBC 3.36 m/uL (4.30-5.90); RDW 14.7 % (11.5-15.5); WBC 5.4 k/uL (3.8-10.6)
[2021-10-25 22:56] LABS: ALT 43 U/L (4-49); AST 110 U/L (17-59); African American GFR (CKD) >90 (>60 ml/min/1.73 sqM); Albumin 4.7 g/dL (3.5-5.0); Alkaline Phosphatase 50 U/L (38-126); Anion Gap 17 mmol/L; Blood Urea Nitrogen 33 mg/dL (9-20); Calcium 9.3 mg/dL (8.4-10.2); Carbon Dioxide 19 mmol/L (22-30); Chloride 94 mmol/L (98-107); Glucose 70 mg/dL (74-99); Magnesium 1.6 mg/dL (1.6-2.3); Non-African American GFR(CKD) >90 (>60 ml/min/1.73 sqM); Potassium 5.1 mmol/L (3.5-5.1); Sodium 130 mmol/L (137-145); Total Bilirubin 0.9 mg/dL (0.2-1.3); Total Protein 8.1 g/dL (6.3-8.2)
[2021-10-25 23:27] LABS: Alcohol 325 mg/dL
[2021-10-25] MEDS ORDERED: LORazepam 2 MG/ML INJ IV PRN ×2 (23:58)
[2021-10-25] MEDS ORDERED: NALOXONE 0.4 MG/ML 1 ML VIAL IV PRN (23:58)
[2021-10-25] MEDS ORDERED: MAG HYDROX/AL HYDROX/SIMETH 30 ML CUP PO PRN (23:58)
[2021-10-25] MEDS ORDERED: ONDANSETRON 4 MG/2 ML VIAL IVP PRN (23:58)
[2021-10-26] MEDS: LORazepam 2 MG/ML INJ IV PRN ×6 (02:37→20:22)
[2021-10-26] MEDS: THIAMINE 100 MG TAB PO SCH ×3 (04:41→15:54)
[2021-10-26] MEDS: FAMOTIDINE 20 MG TAB PO SCH ×2 (08:45→20:22)
[2021-10-26] MEDS: HEPARIN SODIUM,PORCINE/PF 5,000 UNIT/0.5 ML SYRINGE SQ SCH (20:22)
--- NOTE | 2021-10-26 22:22 | P.HPIM ---
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 Patient states that on detoxing from drinking on admission. Patient does drink 1/5 of vodka per day. Patient states that he feels very weak and tremulous and anxious. Denies any fall or injury. No complaints of chest pain or shortness of breath. Currently patient is very drowsy and lethargic and could not provide much history. Patient has been afebrile. No nausea vomiting or abdominal pain or diarrhea. Laboratory data showed WBC 5.4 hemoglobin 12.1 and platelets 184 Sodium 130 potassium 5.1 chloride 94 BUN 33 and creatinine 0.76 and blood sugar is 70 Serum alcohol level is 325 admission Coronavirus PCR not detected. Review of Systems Complete review of systems could not be obtained from the patient except as per HPI Past Medical History Past Medical History: COPD, GERD/Reflux, Pneumonia, Seizure Disorder, Syncope Additional Past Medical History / Comment(s): 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 Severe ETOH abuse. Hx alcohol withdrawal seizures/DTs, 1 yr ago, aspiration pneumonia, encephalopathy d/t alcohol, falls, thrombocytopenia, chronic SOB. History of Any Multi-Drug Resistant Organisms: None Reported Past Surgical History: Ear Surgery, Tonsillectomy Additional Past Surgical History / Comment(s): Bilateral mastoidectomies, sinus surgery and vocal cord scraping, cataract surgery, blocks for migraines. Past Anesthesia/Blood Transfusion Reactions: No Reported Reaction, Motion Sickness Past Psychological History: Anxiety, Bipolar, Depression Additional Psychological History / Comment(s): Pt lives with his girlfriend. He uses no assistive device. He does not have a license d/t DUIs. 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 Smoking Status: Current every day smoker Past Alcohol Use History: Daily, Heavy Additional Past Alcohol Use History / Comment(s): Pt started smoking in 1979 and is a ppd smoker. Drinks 1 pint daily. Past Drug Use History: Marijuana Additional Drug Use History / Comment(s): Smokes marijuana approximately once a day. Aware no alcohol or Marijuana 24 hrs prior to procedure. - Past Family History Father Family Medical History: Cancer Mother Family Medical History: Hyperlipidemia Brother(s) Additional Family Medical History / Comment(s): Bipolar, schizoprenia. Medications and Allergies Home Medications Medication Instructions Recorded Confirmed Type Omeprazole [PriLOSEC] 20 mg PO BID 12/02/19 10/25/21 History Cholecalciferol [Vitamin D3 (25 125 mcg PO DAILY 05/30/21 10/25/21 History Mcg = 1000 Iu)] Magnesium 200 mg PO DAILY 06/09/21 10/25/21 History Albuterol Sulfate [Proair Hfa] 1 - 2 puff INHALATION RT-Q6H PRN 08/16/21 History Metoclopramide [Reglan] 10 mg PO HS PRN 08/16/21 10/25/21 History Ondansetron [Zofran] 4 mg PO Q8HR PRN 08/16/21 10/25/21 History Sucralfate [Carafate] 1 gm PO ACHS 08/16/21 10/25/21 History busPIRone HCL 5 mg PO TID PRN 08/16/21 10/25/21 History traZODone HCL 50 - 100 mg PO HS PRN 08/16/21 10/25/21 History Albuterol Nebulized [Ventolin 2.5 mg INHALATION RT-QID PRN 10/25/21 10/25/21 History Nebulized] Budesonide/Formoterol Fumarate 2 puff INHALATION RT-BID 10/25/21 10/25/21 History [Symbicort 160-4.5 Mcg Inhaler] Famotidine [Pepcid] 20 mg PO DAILY 10/25/21 10/25/21 History Hydrocortisone Cream 1 applic TOPICAL QID PRN 10/25/21 10/25/21 History [Hydrocortisone 2.5% Cream] Ibuprofen [Motrin] 800 mg PO QID PRN 10/25/21 10/25/21 History Meclizine HCl 25 mg PO BID PRN 10/25/21 10/25/21 History Allergies Allergy/AdvReac Type Severity Reaction Status Date / Time No Known Allergies Allergy Verified 10/25/21 20:31 Physical Exam Vitals: Vital Signs Temp Pulse Pulse Resp BP BP Pulse Ox 10/26/21 08:00 95 10/26/21 04:25 98.4 F 151 H 18 96/71 91 L 10/26/21 03:18 98.9 F 125 H 18 124/78 96 10/26/21 01:52 16 96 10/26/21 01:20 96 16 10/26/21 01:05 98.8 F 96 16 106/85 97 10/25/21 23:52 122 H 18 98 10/25/21 22:45 120 H 18 101/81 93 L 10/25/21 20:27 98.0 F 99 19 129/80 94 L Intake and Output 10/25/21 10/26/21 10/26/21 22:59 06:59 14:59 Intake Total 120 Balance 120 Intake: Oral 120 Other: Voiding Method Urinal Diaper Incontinent Weight 72.575 kg 67.5 kg PHYSICAL EXAMINATION: Patient is lying in the bed. Awake alert but drowsy and lethargic... HEENT: Normocephalic. Neck is supple. Pupils reactive. Nostrils clear. Oral cavity is moist. Neck reveals no JVD, carotid bruits, or thyromegaly. CHEST EXAMINATION: Trachea is central. Symmetrical expansion. Lung daley clear to auscultation and percussion. CARDIAC: Normal S1, S2 with no gallops. No murmurs ABDOMEN: Soft. Bowel sounds normal. No organomegaly. No abdominal bruits. Extremities: reveal no edema. No clubbing or cyanosis Neurologically awake, alert, oriented x2-3 with well-coordinated movements. No focal deficits noted Skin: No rash or skin lesions. Psychiatric: Cooperative. Musculoskeletal: No joint swelling or deformity. . Results CBC & Chem 7: 10/25/21 22:17 10/25/21 22:17 Labs: Abnormal Lab Results - Last 24 Hours (Table) 10/25/21 10/25/21 Range/Units 22:17 22:17 RBC 3.36 L (4.30-5.90) m/uL Hgb 12.1 L (13.0-17.5) gm/dL Hct 35.4 L (39.0-53.0) % MCV 105.4 H (80.0-100.0) fL MCH 35.8 H (25.0-35.0) pg Lymphocytes # 0.9 L (1.0-4.8) k/uL Sodium 130 L (137-145) mmol/L Chloride 94 L (98-107) mmol/L Carbon Dioxide 19 L (22-30) mmol/L BUN 33 H (9-20) mg/dL Glucose 70 L (74-99) mg/dL AST 110 H (17-59) U/L Serum Alcohol 325 H* mg/dL Thrombosis Risk Factor Assmnt - Choose All That Apply Any of the Below Risk Factors Present?: Yes Each Factor Represents 1 point: Age 41-60 years Other Risk Factors: No Other congenital or acquired thrombophilia - If yes, enter type in comment: No Thrombosis Risk Factor Assessment Total Risk Factor Score: 1 Thrombosis Risk Factor Assessment Level: Low Risk Assessment and Plan Assessment: Acute alcohol intoxication on admission with level 325 Hypovolemic hyponatremia Macrocytosis secondary to alcohol abuse Acute alcohol withdrawal symptoms COPD not in exacerbation History of withdrawal seizures GERD Neuropathy nondiabetic Anxiety/depression bipolar disorder Severe alcohol abuse DVT prophylaxis Heparin subcu GI prophylaxis. Plan: Patient will be continued on IV hydration with normal saline at 75 cc/h. Continue with alcohol withdrawal protocol. Continue thiamine and multivitamins, GI and DVT prophylaxis. Replace electrolytes and follow-up closely. Time with Patient: Greater than 30
[2021-10-26] MEDS: SODIUM CHLORIDE 0.9% 1,000 ML IV SCH (23:23)
[2021-10-27] MEDS: LORazepam 2 MG/ML INJ IV PRN ×3 (00:12→08:53)
[2021-10-27] MEDS: ACETAMINOPHEN TAB 325 MG TAB PO PRN ×2 (01:10→20:22)
[2021-10-27] MEDS: HEPARIN SODIUM,PORCINE/PF 5,000 UNIT/0.5 ML SYRINGE SQ SCH ×2 (08:37→20:20)
[2021-10-27] MEDS: FAMOTIDINE 20 MG TAB PO SCH ×2 (08:38→20:20)
[2021-10-27] MEDS: THIAMINE 100 MG TAB PO SCH ×2 (08:38→17:31)
[2021-10-27] MEDS ORDERED: IPRATROPIUM-ALBUTEROL 3 ML NEB INHALATION PRN (13:35)
[2021-10-27] MEDS: SODIUM CHLORIDE 0.9% 1,000 ML IV SCH (13:42)
[2021-10-27] MEDS: LORazepam 1 MG TAB PO PRN (17:45)
[2021-10-27] MEDS: IPRATROPIUM-ALBUTEROL 3 ML NEB INHALATION SCH (20:56)
[2021-10-28] MEDS: LORazepam 1 MG TAB PO PRN ×3 (01:45→20:55)
[2021-10-28] MEDS: ACETAMINOPHEN TAB 325 MG TAB PO PRN (01:45)
--- NOTE | 2021-10-28 02:06 | P.PN ---
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 Patient states that on detoxing from drinking on admission. Patient does drink 1/5 of vodka per day. Patient states that he feels very weak and tremulous and anxious. Denies any fall or injury. No complaints of chest pain or shortness of breath. Currently patient is very drowsy and lethargic and could not provide much history. Patient has been afebrile. No nausea vomiting or abdominal pain or diarrhea. Laboratory data showed WBC 5.4 hemoglobin 12.1 and platelets 184 Sodium 130 potassium 5.1 chloride 94 BUN 33 and creatinine 0.76 and blood sugar is 70 Serum alcohol level is 325 admission Coronavirus PCR not detected. 10/27/2021 Patient is seen and evaluated in follow up this morning and maintained on 4 Liters of oxygen with a history of COPD. Patient denies using home oxygen but does do breathing treatments and will order duonebs. Patient also maintained on CIWA protocol and not requiring much ativan although was given a dose of IV ativan this am and will transition to oral Ativan as needed. Patient is alert and oriented x 3 and stating he is weak and ECF is being planned. Social work following. Review of systems: Constitutional: no reports of fatigue, fever, or chills Resp: no reports of worsening shortness of breath or cough Cardio: no reports of chest pain or palpitations GI: no reports of nausea or vomiting : no reports of dysuria or burning with urination Neuro: reports generalized weakness, denies numbness Active Medications Acetaminophen (Acetaminophen Tab 325 Mg Tab) 650 mg PO Q6HR PRN PRN Reason: Mild Pain or Fever > 100.5 Last Admin: 10/28/21 01:45 Dose: 650 mg Documented by: Al Hydroxide/Mg Hydroxide (Mag Hydrox/Al Hydrox/Simeth 30 Ml Cup) 15 ml PO Q6HR PRN PRN Reason: Indigestion Albuterol/Ipratropium (Ipratropium-Albuterol 3 Ml Neb) 3 ml INHALATION RT-TID [facility] Last Admin: 10/27/21 20:56 Dose: 3 ml Documented by: Albuterol/Ipratropium (Ipratropium-Albuterol 3 Ml Neb) 3 ml INHALATION RT-TID PRN PRN Reason: Shortness Of Breath Or Wheezing Last Admin: 10/27/21 15:40 Dose: 3 ml Documented by: Famotidine (Famotidine 20 Mg Tab) 20 mg PO BID [facility] Last Admin: 10/27/21 20:20 Dose: 20 mg Documented by: Heparin Sodium (Porcine) (Heparin Sodium,Porcine/Pf 5,000 Unit/0.5 Ml Syringe) 5,000 unit SQ Q12HR [facility] Last Admin: 10/27/21 20:20 Dose: 5,000 unit Documented by: Lorazepam (Lorazepam 1 Mg Tab) 1 mg PO Q8HR PRN PRN Reason: Anxiety Last Admin: 10/28/21 01:45 Dose: 1 mg Documented by: Naloxone HCl (Naloxone 0.4 Mg/Ml 1 Ml Vial) 0.2 mg IV Q2M PRN PRN Reason: Opioid Reversal Ondansetron HCl (Ondansetron 4 Mg/2 Ml Vial) 4 mg IVP Q8HR PRN PRN Reason: Nausea And Vomiting Thiamine HCl (Thiamine 100 Mg Tab) 100 mg PO BID-W/MEALS [facility] Last Admin: 10/27/21 17:31 Dose: 100 mg Documented by: PHYSICAL EXAMINATION: Patient is lying in the bed. Awake alert and oriented x 3. HEENT: Normocephalic. Neck is supple. Pupils reactive. Nostrils clear. Oral cavity is moist. Neck reveals no JVD, carotid bruits, or thyromegaly. CHEST EXAMINATION: Trachea is central. Symmetrical expansion. Lung daley clear to auscultation and percussion. CARDIAC: Normal S1, S2 with no gallops. No murmurs ABDOMEN: Soft. Bowel sounds normal. No organomegaly. No abdominal bruits. Extremities: reveal no edema. No clubbing or cyanosis Neurologically awake, alert, oriented x2-3 with well-coordinated movements. diffusely weak Skin: No rash or skin lesions. Psychiatric: Cooperative. Musculoskeletal: No joint swelling or deformity. . Assessment: Acute alcohol intoxication on admission with level 325 Hypovolemic hyponatremia, improving Macrocytosis secondary to alcohol abuse Acute alcohol withdrawal symptoms COPD not in exacerbation History of withdrawal seizures GERD Neuropathy nondiabetic Anxiety/depression bipolar disorder Severe alcohol abuse DVT prophylaxis Heparin subcu GI prophylaxis. full code Plan: Patient will be continued on CIWA protocol although will transition to oral Ativan as needed. Continue with alcohol withdrawal protocol. Continue thiamine and multivitamins, GI and DVT prophylaxis. Repeat am labs ordered. IV fluids discontinued. Patient currently maintained on 4L via NC and does not wear home oxygen in the outpatient setting. Will add duonebs as patient does take these regularly. Social work and PT following and plan is for ECF. Discharge possible in 24 hours. Will continue to monitor closely. . Objective - Vital Signs Vital signs: Vital Signs Temp 98.9 F 10/27/21 04:36 Pulse 114 H 10/27/21 04:36 Resp 18 10/27/21 04:36 BP 108/75 10/27/21 04:36 Pulse Ox 96 10/27/21 04:36 Intake & Output 10/26/21 10/27/21 10/27/21 18:59 06:59 18:59 Intake Total 240 1200 Output Total 600 Balance -360 1200 Intake: Intake, IV Titration 600 Amount Sodium Chloride 0.9% 1, 600 000 ml @ 75 mls/hr IV . [id number] [facility] Rx#:[id number] Oral 240 600 Output: Urine 600 Other: Voiding Method Urinal Urinal Diaper Diaper Incontinent Incontinent # Voids 3 # Bowel Movements 2 - Labs CBC & Chem 7: 10/25/21 22:17 10/25/21 22:17
[2021-10-28 06:58] LABS: African American GFR (CKD) >90 (>60 ml/min/1.73 sqM); Anion Gap 8 mmol/L; Blood Urea Nitrogen 8 mg/dL (9-20); Calcium 9.1 mg/dL (8.4-10.2); Carbon Dioxide 28 mmol/L (22-30); Chloride 86 mmol/L (98-107); Glucose 100 mg/dL (74-99); Non-African American GFR(CKD) >90 (>60 ml/min/1.73 sqM); Potassium 3.4 mmol/L (3.5-5.1); Sodium 122 mmol/L (137-145)
[2021-10-28] MEDS: FAMOTIDINE 20 MG TAB PO SCH ×2 (07:36→20:54)
[2021-10-28] MEDS: HEPARIN SODIUM,PORCINE/PF 5,000 UNIT/0.5 ML SYRINGE SQ SCH ×2 (07:36→20:53)
[2021-10-28] MEDS: THIAMINE 100 MG TAB PO SCH ×2 (07:36→16:47)
[2021-10-28] MEDS: IPRATROPIUM-ALBUTEROL 3 ML NEB INHALATION SCH ×3 (07:37→19:58)
[2021-10-28] MEDS ORDERED: POTASSIUM CHLORIDE ER 20 MEQ TAB.ER PO STA (09:39)
[2021-10-28] MEDS: SODIUM CHLORIDE 0.9% 1,000 ML IV SCH ×2 (10:00→22:29)
[2021-10-28 12:51] LABS: African American GFR (CKD) >90 (>60 ml/min/1.73 sqM); Anion Gap 8 mmol/L; Blood Urea Nitrogen 6 mg/dL (9-20); Carbon Dioxide 29 mmol/L (22-30); Chloride 86 mmol/L (98-107); Glucose 105 mg/dL (74-99); Non-African American GFR(CKD) >90 (>60 ml/min/1.73 sqM); Potassium 3.6 mmol/L (3.5-5.1); Sodium 123 mmol/L (137-145)
--- NOTE | 2021-10-28 13:55 | XR ---
EXAMINATION TYPE: XR chest 1V portable DATE OF EXAM: 10/28/2021 COMPARISON: 10/25/2021 INDICATION: Shortness of breath TECHNIQUE: Single frontal view of the chest is obtained. FINDINGS: The heart size is normal. The pulmonary vasculature is normal. The lungs are clear. IMPRESSION: 1. No acute pulmonary process.
[2021-10-28] MEDS: guaiFENesin 600 MG TABLET.ER PO SCH ×2 (14:44→20:54)
[2021-10-28] MEDS: POLYMYXIN B-TRIMETHOPRIM SULF (10,000-1) OPHTH DROPS 10 ML BTL BOTH EYES SCH ×3 (15:30→22:27)
--- NOTE | 2021-10-29 02:00 | P.PN ---
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 Patient states that on detoxing from drinking on admission. Patient does drink 1/5 of vodka per day. Patient states that he feels very weak and tremulous and anxious. Denies any fall or injury. No complaints of chest pain or shortness of breath. Currently patient is very drowsy and lethargic and could not provide much history. Patient has been afebrile. No nausea vomiting or abdominal pain or diarrhea. Laboratory data showed WBC 5.4 hemoglobin 12.1 and platelets 184 Sodium 130 potassium 5.1 chloride 94 BUN 33 and creatinine 0.76 and blood sugar is 70 Serum alcohol level is 325 admission Coronavirus PCR not detected. 10/27/2021 Patient is seen and evaluated in follow up this morning and maintained on 4 Liters of oxygen with a history of COPD. Patient denies using home oxygen but does do breathing treatments and will order duonebs. Patient also maintained on CIWA protocol and not requiring much ativan although was given a dose of IV ativan this am and will transition to oral Ativan as needed. Patient is alert and oriented x 3 and stating he is weak and ECF is being planned. Social work following. 10/28/2021 Patient is seen this morning and continues on 4L and discussed with nursing staff about weaning FI02 and assess patient on room air as he does not wear 02 at home. Breathing treatments ordered and maintained on oral ativan as needed. Patient denies any nausea or vomiting. Oral intake is fair and encouraged increased intake and will add ensures. Labs drawn reveal sodium is 122 and will start IV fluids and repeat labs. Potassium 3.4 and will replace. Per nursing staff patient continues with weakness and urinary and stool incontinence with periods of confusion. Crusting and drainage with irritation noted to the eyes and will add polytrim. Encouraged increase hand hygiene and avoid rubbing eyes Review of systems: Constitutional: no reports of fatigue, fever, or chills Resp: no reports of worsening shortness of breath, reports congestion and cough Cardio: no reports of chest pain or palpitations GI: no reports of nausea or vomiting : no reports of dysuria or burning with urination Neuro: reports generalized weakness, denies numbness Active Medications Acetaminophen (Acetaminophen Tab 325 Mg Tab) 650 mg PO Q6HR PRN PRN Reason: Mild Pain or Fever > 100.5 Last Admin: 10/28/21 01:45 Dose: 650 mg Documented by: Al Hydroxide/Mg Hydroxide (Mag Hydrox/Al Hydrox/Simeth 30 Ml Cup) 15 ml PO Q6HR PRN PRN Reason: Indigestion Albuterol/Ipratropium (Ipratropium-Albuterol 3 Ml Neb) 3 ml INHALATION RT-TID [facility] Last Admin: 10/28/21 19:58 Dose: 3 ml Documented by: Albuterol/Ipratropium (Ipratropium-Albuterol 3 Ml Neb) 3 ml INHALATION RT-TID PRN PRN Reason: Shortness Of Breath Or Wheezing Last Admin: 10/27/21 15:40 Dose: 3 ml Documented by: Famotidine (Famotidine 20 Mg Tab) 20 mg PO BID [facility] Last Admin: 10/28/21 20:54 Dose: 20 mg Documented by: Guaifenesin (Guaifenesin 600 Mg Tablet.Er) 600 mg PO Q12HR [facility] Last Admin: 10/28/21 20:54 Dose: 600 mg Documented by: Heparin Sodium (Porcine) (Heparin Sodium,Porcine/Pf 5,000 Unit/0.5 Ml Syringe) 5,000 unit SQ Q12HR [facility] Last Admin: 10/28/21 20:53 Dose: 5,000 unit Documented by: Sodium Chloride (Saline 0.9%) 1,000 mls @ 100 mls/hr IV .Q10H [facility] Last Admin: 10/28/21 22:29 Dose: 100 mls/hr Documented by: Lorazepam (Lorazepam 1 Mg Tab) 1 mg PO Q8HR PRN PRN Reason: Anxiety Last Admin: 10/28/21 20:55 Dose: 1 mg Documented by: Naloxone HCl (Naloxone 0.4 Mg/Ml 1 Ml Vial) 0.2 mg IV Q2M PRN PRN Reason: Opioid Reversal Ondansetron HCl (Ondansetron 4 Mg/2 Ml Vial) 4 mg IVP Q8HR PRN PRN Reason: Nausea And Vomiting Polymyxin/Trimethoprim Sulfate (Polymyxin B-Trimethoprim Sulf (10,000-1) Ophth Drops 10 Ml Btl) 1 drops BOTH EYES Q4HR [facility] Last Admin: 10/28/21 22:27 Dose: 1 drops Documented by: Thiamine HCl (Thiamine 100 Mg Tab) 100 mg PO BID-W/MEALS [facility] Last Admin: 10/28/21 16:47 Dose: 100 mg Documented by: PHYSICAL EXAMINATION: Patient is lying in the bed. Awake alert and oriented x 3. HEENT: Normocephalic. Neck is supple. Pupils reactive. Nostrils clear. Oral cavity is moist. Neck reveals no JVD, carotid bruits, or thyromegaly. CHEST EXAMINATION: Trachea is central. Symmetrical expansion. Lung daley clear to auscultation and percussion. CARDIAC: Normal S1, S2 with no gallops. No murmurs ABDOMEN: Soft. Bowel sounds normal. No organomegaly. No abdominal bruits. Extremities: reveal no edema. No clubbing or cyanosis Neurologically awake, alert, oriented x2-3 with well-coordinated movements. diffusely weak Skin: No rash or skin lesions. Psychiatric: Cooperative. Musculoskeletal: No joint swelling or deformity. . Assessment: Acute alcohol intoxication on admission with level 325 Hypovolemic hyponatremia bilateral conjunctivitis hypokalemia Macrocytosis secondary to alcohol abuse Acute alcohol withdrawal symptoms COPD not in exacerbation History of withdrawal seizures GERD Neuropathy nondiabetic Anxiety/depression bipolar disorder Severe alcohol abuse DVT prophylaxis Heparin subcu GI prophylaxis. full code Plan: Patient will be continued on CIWA protocol although will transition to oral Ativan as needed. Continue with alcohol withdrawal protocol. Continue thiamine and multivitamins, GI and DVT prophylaxis. Repeat am labs ordered reveal sodium of 122 and will continue IV fluids and repeat sodium this afternoon. Repeat was 123. Replace potassium per protocol. Will order am labs. Patient was currently maintained on 4L via NC and does not wear home oxygen in the outpatient setting. Discussed with RN about assessing patient on room air and 02 saturations above 90% on room air. Will continue duonebs as patient does take these regularly. CXR shows no acute pulmonary process. Social work and PT following and plan is for ECF. Will continue to monitor closely. Objective - Vital Signs Vital signs: Vital Signs Temp 98.9 F 10/28/21 05:00 Pulse 90 10/28/21 07:46 Resp 20 10/28/21 05:00 BP 137/83 10/28/21 05:00 Pulse Ox 100 10/28/21 05:00 Intake & Output 10/27/21 10/28/21 10/28/21 18:59 06:59 18:59 Intake Total 600 Balance 600 Intake: Oral 600 Other: Voiding Method Urinal Urinal Diaper Diaper Incontinent Incontinent # Voids 3 4 # Bowel Movements 1 - Labs CBC & Chem 7: 10/25/21 22:17 10/28/21 12:24 Labs: Abnormal Lab Results - Last 24 Hours (Table) 10/28/21 Range/Units 05:19 Sodium 122 L (137-145) mmol/L Potassium 3.4 L (3.5-5.1) mmol/L Chloride 86 L (98-107) mmol/L BUN 8 L (9-20) mg/dL Creatinine 0.44 L (0.66-1.25) mg/dL Glucose 100 H (74-99) mg/dL
[2021-10-29] MEDS: ACETAMINOPHEN TAB 325 MG TAB PO PRN ×2 (03:20→21:06)
[2021-10-29] MEDS: POLYMYXIN B-TRIMETHOPRIM SULF (10,000-1) OPHTH DROPS 10 ML BTL BOTH EYES SCH ×5 (04:29→21:04)
[2021-10-29] MEDS: FAMOTIDINE 20 MG TAB PO SCH ×2 (07:30→21:04)
[2021-10-29] MEDS: THIAMINE 100 MG TAB PO SCH ×2 (07:30→16:53)
[2021-10-29] MEDS: HEPARIN SODIUM,PORCINE/PF 5,000 UNIT/0.5 ML SYRINGE SQ SCH ×2 (07:30→21:04)
[2021-10-29] MEDS: guaiFENesin 600 MG TABLET.ER PO SCH ×2 (07:30→21:04)
[2021-10-29] MEDS: LORazepam 1 MG TAB PO PRN (07:30)
[2021-10-29 07:42] LABS: Basophils % (A) 0 %; Eosinophils # (A) 0.1 k/uL (0-0.7); Eosinophils % (A) 1 %; HCT 30.3 % (39.0-53.0); HGB 10.5 gm/dL (13.0-17.5); Lymphocytes # (A) 1.3 k/uL (1.0-4.8); Lymphocytes % (A) 18 %; MCH 36.1 pg (25.0-35.0); MCHC 34.6 g/dL (31.0-37.0); MCV 104.2 fL (80.0-100.0); Macrocytosis Moderate; Mean Platelet Volume 8.4; Monocytes # (A) 0.7 k/uL (0-1.0); Monocytes % (A) 10 %; Neutrophils # (A) 4.9 k/uL (1.3-7.7); Neutrophils % (A) 68 %; Platelet Count 132 k/uL (150-450); RBC 2.91 m/uL (4.30-5.90); RDW 14.8 % (11.5-15.5); WBC 7.3 k/uL (3.8-10.6)
[2021-10-29 08:03] LABS: African American GFR (CKD) >90 (>60 ml/min/1.73 sqM); Anion Gap 5 mmol/L; Blood Urea Nitrogen 4 mg/dL (9-20); Calcium 9.2 mg/dL (8.4-10.2); Carbon Dioxide 31 mmol/L (22-30); Chloride 88 mmol/L (98-107); Glucose 99 mg/dL (74-99); Non-African American GFR(CKD) >90 (>60 ml/min/1.73 sqM); Potassium 3.6 mmol/L (3.5-5.1); Sodium 124 mmol/L (137-145)
[2021-10-29] MEDS: IPRATROPIUM-ALBUTEROL 3 ML NEB INHALATION SCH ×3 (08:13→19:21)
[2021-10-29] MEDS: SODIUM CHLORIDE 0.9% 1,000 ML IV SCH (12:24)
[2021-10-30] MEDS: POLYMYXIN B-TRIMETHOPRIM SULF (10,000-1) OPHTH DROPS 10 ML BTL BOTH EYES SCH ×7 (01:09→23:34)
[2021-10-30] MEDS: SODIUM CHLORIDE 0.9% 1,000 ML IV SCH ×3 (03:33→17:14)
[2021-10-30] MEDS: ACETAMINOPHEN TAB 325 MG TAB PO PRN ×2 (05:50→20:10)
[2021-10-30] MEDS: FAMOTIDINE 20 MG TAB PO SCH ×2 (08:25→20:10)
[2021-10-30] MEDS: guaiFENesin 600 MG TABLET.ER PO SCH ×2 (08:25→20:10)
[2021-10-30] MEDS: HEPARIN SODIUM,PORCINE/PF 5,000 UNIT/0.5 ML SYRINGE SQ SCH ×2 (08:25→20:10)
[2021-10-30] MEDS: THIAMINE 100 MG TAB PO SCH ×2 (08:25→17:14)
[2021-10-30] MEDS: LORazepam 1 MG TAB PO PRN ×2 (08:27→23:07)
[2021-10-30] MEDS: IPRATROPIUM-ALBUTEROL 3 ML NEB INHALATION SCH ×3 (09:51→20:00)
--- NOTE | 2021-10-30 12:38 | CONS ---
CONSULTATION REASON FOR CONSULTATION: Hyponatremia. HISTORY OF PRESENT ILLNESS: Patient is a 56-year-old male who was admitted to the hospital on 10/25 with complaints of increased weakness. He had stated that he was detoxing from drinking. His alcohol level was 325. Patient's serum sodium was 130 on 10/25/2021. It did go down to around 122 on 10/28/2021. It appears that patient was started on saline. I do not see a UA or urine osmolality. He did admit to not having eaten much. PAST MEDICAL HISTORY: Significant for COPD, gastroesophageal reflux disease, seizure disorder, syncope, ETOH abuse, neuropathy. PAST SURGICAL HISTORY: Tonsillectomy, ear surgery, bilateral mastoidectomy, sinus surgery, cataract surgery. SOCIAL HISTORY: Positive for use of marijuana, heavy alcohol abuse. MEDICATIONS: Medications prior to admission included Prilosec, vitamin D3, Reglan, Zofran, Carafate, BuSpar, trazodone, Symbicort, Pepcid, Motrin, meclizine. ALLERGIES: NONE. PHYSICAL EXAMINATION: Patient is currently comfortable, awake. He is not in any acute distress. Alert, oriented x3. Blood pressure 129/81, heart rate 80 per minute. He is afebrile. EXAMINATION OF THE HEART: S1 and S2. EXAMINATION OF LUNGS: Bilateral breath sounds are heard. Abdomen is soft, non-tender. Examination of lower extremities shows no evidence of edema. Labs show sodium of 124, potassium 3.6, BUN 4, serum creatinine 0.46. These are labs from yesterday. We do not have labs from today. ASSESSMENT: 1. Hyponatremia associated with excessive alcohol intake and poor solute intake. Check urine osmolality. I will discontinue the normal saline for now. Blood pressure is on the lower side. Patient may benefit from sodium chloride tabs. I will wait for his serum sodium from today and then we will decide on the sodium chloride tabs based on that. I will also discontinue the IV fluids for now. 2. Acute alcohol intoxication. 3. History of heavy EtOH abuse. 4. Anemia, multifactorial, including some degree of bone marrow suppression from alcohol. 5. Hypokalemia secondary to decreased intake. Will replace. PLAN: Check STAT sodium now. Discontinue IV fluids. Check urine osmolality. Consider sodium chloride tabs based on repeat labs. Thank you for this consultation. Will continue to follow the patient with you during his hospitalization. MMODL / IJN: [id number] /
--- NOTE | 2021-10-31 00:05 | P.PN ---
Subjective Progress Note Date: 10/29/21 Principal diagnosis: Acute alcohol withdrawal symptoms. 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 Patient states that on detoxing from drinking on admission. Patient does drink 1/5 of vodka per day. Patient states that he feels very weak and tremulous and anxious. Denies any fall or injury. No complaints of chest pain or shortness of breath. Currently patient is very drowsy and lethargic and could not provide much history. Patient has been afebrile. No nausea vomiting or abdominal pain or diarrhea. Laboratory data showed WBC 5.4 hemoglobin 12.1 and platelets 184 Sodium 130 potassium 5.1 chloride 94 BUN 33 and creatinine 0.76 and blood sugar is 70 Serum alcohol level is 325 admission Coronavirus PCR not detected. 10/27/2021 Patient is seen and evaluated in follow up this morning and maintained on 4 Liters of oxygen with a history of COPD. Patient denies using home oxygen but does do breathing treatments and will order duonebs. Patient also maintained on CIWA protocol and not requiring much ativan although was given a dose of IV ativan this am and will transition to oral Ativan as needed. Patient is alert and oriented x 3 and stating he is weak and ECF is being planned. Social work following. 10/28/2021 Patient is seen this morning and continues on 4L and discussed with nursing staff about weaning FI02 and assess patient on room air as he does not wear 02 at home. Breathing treatments ordered and maintained on oral ativan as needed. Patient denies any nausea or vomiting. Oral intake is fair and encouraged increased intake and will add ensures. Labs drawn reveal sodium is 122 and will start IV fluids and repeat labs. Potassium 3.4 and will replace. Per nursing staff patient continues with weakness and urinary and stool incontinence with periods of confusion. Crusting and drainage with irritation noted to the eyes and will add polytrim. Encouraged increase hand hygiene and avoid rubbing eyes. 10/29/2021 Patient is currently sitting on the bed. Awake alert oriented x3. No complaints of chest pain or shortness breath. Feels better. Tolerating oral diet. Increase increase solute intake. Sodium level improved to 124 today. Other laboratory showed bicarb 31 BUN 14 creatinine 0.46 Patient is being current alcohol withdrawal protocol. Continue GI and DVT prophylaxis. Review of systems: Constitutional: no reports of fatigue, fever, or chills Resp: no reports of worsening shortness of breath, reports congestion and cough Cardio: no reports of chest pain or palpitations GI: no reports of nausea or vomiting : no reports of dysuria or burning with urination Neuro: reports generalized weakness, denies numbness Objective - Vital Signs Vital signs: Vital Signs Temp 98.8 F 10/29/21 12:39 Pulse 113 H 10/29/21 12:39 Resp 18 10/29/21 12:39 BP 109/77 10/29/21 12:39 Pulse Ox 95 10/29/21 12:39 Intake & Output 10/28/21 10/29/21 10/29/21 18:59 06:59 18:59 Intake Total 2270 400 Balance 2270 400 Intake: Intake, IV Titration 750 Amount Sodium Chloride 0.9% 1, 750 000 ml @ 100 mls/hr IV . Q10H [facility] Rx#:[id number] Oral 1520 400 Other: Voiding Method Urinal Urinal Urinal Diaper Diaper Diaper Incontinent Incontinent Incontinent # Voids 5 8 # Bowel Movements 1 1 - Exam PHYSICAL EXAMINATION: Patient is lying in the bed. Awake alert and oriented x 3. HEENT: Normocephalic. Neck is supple. Pupils reactive. Nostrils clear. Oral cavity is moist. Neck reveals no JVD, carotid bruits, or thyromegaly. CHEST EXAMINATION: Trachea is central. Symmetrical expansion. Lung daley clear to auscultation and percussion. CARDIAC: Normal S1, S2 with no gallops. No murmurs ABDOMEN: Soft. Bowel sounds normal. No organomegaly. No abdominal bruits. Extremities: reveal no edema. No clubbing or cyanosis Neurologically awake, alert, oriented x2-3 with well-coordinated movements. diffusely weak Skin: No rash or skin lesions. Psychiatric: Cooperative. Musculoskeletal: No joint swelling or deformity. . - Labs CBC & Chem 7: 10/29/21 07:21 10/30/21 09:57 Labs: Abnormal Lab Results - Last 24 Hours (Table) 10/29/21 10/29/21 Range/Units 07:21 07:21 RBC 2.91 L (4.30-5.90) m/uL Hgb 10.5 L (13.0-17.5) gm/dL Hct 30.3 L (39.0-53.0) % MCV 104.2 H (80.0-100.0) fL MCH 36.1 H (25.0-35.0) pg Plt Count 132 L (150-450) k/uL Sodium 124 L (137-145) mmol/L Chloride 88 L (98-107) mmol/L Carbon Dioxide 31 H (22-30) mmol/L BUN 4 L (9-20) mg/dL Creatinine 0.46 L (0.66-1.25) mg/dL Assessment and Plan Assessment: Acute alcohol intoxication on admission with level 325 Hypovolemic hyponatremia bilateral conjunctivitis hypokalemia Macrocytosis secondary to alcohol abuse Acute alcohol withdrawal symptoms COPD not in exacerbation History of withdrawal seizures GERD Neuropathy nondiabetic Anxiety/depression bipolar disorder Severe alcohol abuse DVT prophylaxis Heparin subcu GI prophylaxis. full code Plan: Patient will be continued on CIWA protocol although will transition to oral Ativan as needed. Continue with alcohol withdrawal protocol. Continue thiamine and multivitamins, GI and DVT prophylaxis. Repeat am labs ordered reveal sodium of 122 and will continue IV fluids Discussed with RN about assessing patient on room air and 02 saturations above 90% on room air. Will continue duonebs as patient does take these regularly. CXR shows no acute pulmonary process. Social work and PT following and plan is for ECF. Will continue to monitor closely.
--- NOTE | 2021-10-31 00:08 | P.PN ---
Subjective Progress Note Date: 10/30/21 Principal diagnosis: Acute alcohol withdrawal symptoms. 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 Patient states that on detoxing from drinking on admission. Patient does drink 1/5 of vodka per day. Patient states that he feels very weak and tremulous and anxious. Denies any fall or injury. No complaints of chest pain or shortness of breath. Currently patient is very drowsy and lethargic and could not provide much history. Patient has been afebrile. No nausea vomiting or abdominal pain or diarrhea. Laboratory data showed WBC 5.4 hemoglobin 12.1 and platelets 184 Sodium 130 potassium 5.1 chloride 94 BUN 33 and creatinine 0.76 and blood sugar is 70 Serum alcohol level is 325 admission Coronavirus PCR not detected. 10/27/2021 Patient is seen and evaluated in follow up this morning and maintained on 4 Liters of oxygen with a history of COPD. Patient denies using home oxygen but does do breathing treatments and will order duonebs. Patient also maintained on CIWA protocol and not requiring much ativan although was given a dose of IV ativan this am and will transition to oral Ativan as needed. Patient is alert and oriented x 3 and stating he is weak and ECF is being planned. Social work following. 10/28/2021 Patient is seen this morning and continues on 4L and discussed with nursing staff about weaning FI02 and assess patient on room air as he does not wear 02 at home. Breathing treatments ordered and maintained on oral ativan as needed. Patient denies any nausea or vomiting. Oral intake is fair and encouraged increased intake and will add ensures. Labs drawn reveal sodium is 122 and will start IV fluids and repeat labs. Potassium 3.4 and will replace. Per nursing staff patient continues with weakness and urinary and stool incontinence with periods of confusion. Crusting and drainage with irritation noted to the eyes and will add polytrim. Encouraged increase hand hygiene and avoid rubbing eyes. 10/29/2021 Patient is currently sitting on the bed. Awake alert oriented x3. No complaints of chest pain or shortness breath. Feels better. Tolerating oral diet. Increase increase solute intake. Sodium level improved to 124 today. Other laboratory showed bicarb 31 BUN 14 creatinine 0.46 Patient is being current alcohol withdrawal protocol. Continue GI and DVT prophylaxis. 10/30/2021 Patient is more awake and alert and orientated. Feels better. Able to tolerate oral diet. Encourage increased solute intake. Patient will be current on gentle IV hydration with normal saline and monitor sodium level closely. Repeat sodium level is 130 today. Patient has been afebrile. No complaints of chest pain or shortness breath. Oxygen level titrated down to room air. Nephrology is on board 3 2 hyponatremia. Review of systems: Constitutional: no reports of fatigue, fever, or chills Resp: no reports of worsening shortness of breath, reports congestion and cough Cardio: no reports of chest pain or palpitations GI: no reports of nausea or vomiting : no reports of dysuria or burning with urination Neuro: reports generalized weakness, denies numbness Objective - Vital Signs Vital signs: Vital Signs Temp 98.3 F 10/30/21 20:00 Pulse 84 10/30/21 20:00 Resp 18 10/30/21 20:00 BP 135/92 10/30/21 20:00 Pulse Ox 96 10/30/21 20:00 Intake & Output 10/30/21 10/30/21 10/31/21 06:59 18:59 06:59 Intake Total 400 Balance 400 Intake: Oral 400 Other: Voiding Method Urinal Urinal Diaper Diaper Incontinent Incontinent # Voids 9 1 - Exam PHYSICAL EXAMINATION: Patient is lying in the bed. Awake alert and oriented x 3. HEENT: Normocephalic. Neck is supple. Pupils reactive. Nostrils clear. Oral cavity is moist. Neck reveals no JVD, carotid bruits, or thyromegaly. CHEST EXAMINATION: Trachea is central. Symmetrical expansion. Lung daley clear to auscultation and percussion. CARDIAC: Normal S1, S2 with no gallops. No murmurs ABDOMEN: Soft. Bowel sounds normal. No organomegaly. No abdominal bruits. Extremities: reveal no edema. No clubbing or cyanosis Neurologically awake, alert, oriented x2-3 with well-coordinated movements. diffusely weak Skin: No rash or skin lesions. Psychiatric: Cooperative. Musculoskeletal: No joint swelling or deformity. . - Labs CBC & Chem 7: 10/29/21 07:21 10/30/21 09:57 Labs: Abnormal Lab Results - Last 24 Hours (Table) 10/30/21 Range/Units 09:57 Sodium 130 L (137-145) mmol/L Assessment and Plan Assessment: Acute alcohol intoxication on admission with level 325 Hypovolemic hyponatremia bilateral conjunctivitis hypokalemia Macrocytosis secondary to alcohol abuse Acute alcohol withdrawal symptoms COPD not in exacerbation History of withdrawal seizures GERD Neuropathy nondiabetic Anxiety/depression bipolar disorder Severe alcohol abuse DVT prophylaxis Heparin subcu GI prophylaxis. full code Plan: Patient will be continued on CIWA protocol although will transition to oral Ativan as needed. Continue with alcohol withdrawal protocol. Continue thiamine and multivitamins, GI and DVT prophylaxis. Patient will continue on gentle IV hydration with normal saline. Encourage increased fluid intake. Sodium level improved to 130 today. Patient is saturating well on room air.Will continue duonebs as patient does take these regularly. CXR shows no acute pulmonary process. Social work and PT following and plan is for ECF. Will continue to monitor closely.
[2021-10-31] MEDS: POLYMYXIN B-TRIMETHOPRIM SULF (10,000-1) OPHTH DROPS 10 ML BTL BOTH EYES SCH ×6 (05:51→23:18)
[2021-10-31] MEDS: SODIUM CHLORIDE 0.9% 1,000 ML IV SCH (05:54)
[2021-10-31 06:42] LABS: Basophils % (A) 0 %; Eosinophils # (A) 0.1 k/uL (0-0.7); Eosinophils % (A) 1 %; HCT 30.8 % (39.0-53.0); HGB 10.7 gm/dL (13.0-17.5); Lymphocytes # (A) 1.3 k/uL (1.0-4.8); Lymphocytes % (A) 20 %; MCH 37.3 pg (25.0-35.0); MCHC 34.7 g/dL (31.0-37.0); MCV 107.6 fL (80.0-100.0); Macrocytosis Marked; Mean Platelet Volume 7.8; Monocytes # (A) 0.9 k/uL (0-1.0); Monocytes % (A) 14 %; Neutrophils % (A) 61 %; Platelet Count 192 k/uL (150-450); RBC 2.86 m/uL (4.30-5.90); WBC 6.6 k/uL (3.8-10.6)
--- NOTE | 2021-10-31 08:42 | P.PN ---
Subjective Patient is seen in follow-up for hyponatremia. Sodium level 130 yesterday. Oral intake fair. No vomiting or diarrhea. Vital signs are stable. General: The patient appeared well nourished and normally developed. HEENT: Head exam is unremarkable. LUNGS: Breath sounds decreased. HEART: Rate and Rhythm are regular. ABDOMEN: Soft, no distention. EXTREMITITES: No edema. Objective - Vital Signs Vital signs: Vital Signs Temp 98.3 F 10/31/21 04:55 Pulse 89 10/31/21 04:55 Resp 16 10/31/21 04:55 BP 123/81 10/31/21 04:55 Pulse Ox 96 10/31/21 04:55 Intake & Output 10/30/21 10/31/21 10/31/21 18:59 06:59 18:59 Other: Voiding Method Urinal Urinal Diaper Diaper Incontinent Incontinent # Voids 1 - Labs CBC & Chem 7: 10/31/21 05:33 10/30/21 09:57 Labs: Abnormal Lab Results - Last 24 Hours (Table) 10/30/21 10/31/21 Range/Units 09:57 05:33 RBC 2.86 L (4.30-5.90) m/uL Hgb 10.7 L (13.0-17.5) gm/dL Hct 30.8 L (39.0-53.0) % MCV 107.6 H (80.0-100.0) fL MCH 37.3 H (25.0-35.0) pg RDW 16.0 H (11.5-15.5) % Macrocytosis Marked A Sodium 130 L (137-145) mmol/L Assessment and Plan Plan: Assessment: 1. Hyponatremia. Partially hypovolemic and improved with IV hydration. Also component of poor solute intake. Urine osmolality 566. Sodium level 130 yester day. 2. Alcohol abuse. Plan: Hep-Lock IV fluids. 1200 mL fluid restriction. Encourage oral intake.
[2021-10-31 09:57] LABS: Anion Gap 13.2 mmol/L (10.00-18.00); BUN/Creat Ratio 9.37 Ratio (12.00-20.00); Blood Urea Nitrogen 4.9 mg/dL (9.0-27.0); Calcium 8.9 mg/dL (8.7-10.3); Carbon Dioxide 23.4 mmol/L (20.0-27.5); Potassium 3.1 mmol/L (3.5-5.5)
[2021-10-31] MEDS: LORazepam 1 MG TAB PO PRN ×2 (10:08→17:08)
[2021-10-31] MEDS: THIAMINE 100 MG TAB PO SCH ×2 (10:08→17:07)
[2021-10-31] MEDS: HEPARIN SODIUM,PORCINE/PF 5,000 UNIT/0.5 ML SYRINGE SQ SCH ×2 (10:08→19:54)
[2021-10-31] MEDS: guaiFENesin 600 MG TABLET.ER PO SCH ×2 (10:08→19:54)
[2021-10-31] MEDS: FAMOTIDINE 20 MG TAB PO SCH ×2 (10:08→19:54)
[2021-10-31] MEDS: IPRATROPIUM-ALBUTEROL 3 ML NEB INHALATION SCH ×3 (11:15→20:02)
[2021-10-31] MEDS ORDERED: POTASSIUM CHLORIDE ER 20 MEQ TAB.ER PO STA (12:04)
[2021-10-31] MEDS: ACETAMINOPHEN TAB 325 MG TAB PO PRN ×2 (17:07→23:08)
[2021-10-31 20:18] VITALS: RESP 16
--- NOTE | 2021-10-31 23:08 | P.PN ---
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 Patient states that on detoxing from drinking on admission. Patient does drink 1/5 of vodka per day. Patient states that he feels very weak and tremulous and anxious. Denies any fall or injury. No complaints of chest pain or shortness of breath. Currently patient is very drowsy and lethargic and could not provide much history. Patient has been afebrile. No nausea vomiting or abdominal pain or diarrhea. Laboratory data showed WBC 5.4 hemoglobin 12.1 and platelets 184 Sodium 130 potassium 5.1 chloride 94 BUN 33 and creatinine 0.76 and blood sugar is 70 Serum alcohol level is 325 admission Coronavirus PCR not detected. 10/27/2021 Patient is seen and evaluated in follow up this morning and maintained on 4 Liters of oxygen with a history of COPD. Patient denies using home oxygen but does do breathing treatments and will order duonebs. Patient also maintained on CIWA protocol and not requiring much ativan although was given a dose of IV ativan this am and will transition to oral Ativan as needed. Patient is alert and oriented x 3 and stating he is weak and ECF is being planned. Social work following. 10/28/2021 Patient is seen this morning and continues on 4L and discussed with nursing staff about weaning FI02 and assess patient on room air as he does not wear 02 at home. Breathing treatments ordered and maintained on oral ativan as needed. Patient denies any nausea or vomiting. Oral intake is fair and encouraged increased intake and will add ensures. Labs drawn reveal sodium is 122 and will start IV fluids and repeat labs. Potassium 3.4 and will replace. Per nursing staff patient continues with weakness and urinary and stool incontinence with periods of confusion. Crusting and drainage with irritation noted to the eyes and will add polytrim. Encouraged increase hand hygiene and avoid rubbing eyes 10/31/2021 Patient is seen in follow up this morning and is being closely monitored. Patient denies any worsening shortness of breath and oxygen saturations maintained above 90%. Nephrology following and was continued on gentle IV hydration and will discontinue IV fluids as sodium is 131 today. Encouraged oral intake and ensure supplements. Continue prn ativan oral and continue with breathing inhalational treatments. Social work following and awaiting on accepting facility for PT/OT therapy. Review of systems: Constitutional: no reports of fatigue, fever, or chills Resp: no reports of worsening shortness of breath, reports congestion and cough, slightly improved Cardio: no reports of chest pain or palpitations GI: no reports of nausea or vomiting : no reports of dysuria or burning with urination Neuro: reports generalized weakness, denies numbness Active Medications Acetaminophen (Acetaminophen Tab 325 Mg Tab) 650 mg PO Q6HR PRN PRN Reason: Mild Pain or Fever > 100.5 Last Admin: 10/31/21 17:07 Dose: 650 mg Documented by: Al Hydroxide/Mg Hydroxide (Mag Hydrox/Al Hydrox/Simeth 30 Ml Cup) 15 ml PO Q6HR PRN PRN Reason: Indigestion Last Admin: 10/30/21 17:18 Dose: 15 ml Documented by: Albuterol/Ipratropium (Ipratropium-Albuterol 3 Ml Neb) 3 ml INHALATION RT-TID [facility] Last Admin: 10/31/21 20:02 Dose: 3 ml Documented by: Albuterol/Ipratropium (Ipratropium-Albuterol 3 Ml Neb) 3 ml INHALATION RT-TID PRN PRN Reason: Shortness Of Breath Or Wheezing Last Admin: 10/27/21 15:40 Dose: 3 ml Documented by: Famotidine (Famotidine 20 Mg Tab) 20 mg PO BID [facility] Last Admin: 10/31/21 19:54 Dose: 20 mg Documented by: Guaifenesin (Guaifenesin 600 Mg Tablet.Er) 600 mg PO Q12HR [facility] Last Admin: 10/31/21 19:54 Dose: 600 mg Documented by: Heparin Sodium (Porcine) (Heparin Sodium,Porcine/Pf 5,000 Unit/0.5 Ml Syringe) 5,000 unit SQ Q12HR [facility] Last Admin: 10/31/21 19:54 Dose: 5,000 unit Documented by: Lorazepam (Lorazepam 1 Mg Tab) 1 mg PO Q8HR PRN PRN Reason: Anxiety Last Admin: 10/31/21 17:08 Dose: 1 mg Documented by: Naloxone HCl (Naloxone 0.4 Mg/Ml 1 Ml Vial) 0.2 mg IV Q2M PRN PRN Reason: Opioid Reversal Ondansetron HCl (Ondansetron 4 Mg/2 Ml Vial) 4 mg IVP Q8HR PRN PRN Reason: Nausea And Vomiting Polymyxin/Trimethoprim Sulfate (Polymyxin B-Trimethoprim Sulf (10,000-1) Ophth Drops 10 Ml Btl) 1 drops BOTH EYES Q4HR [facility] Last Admin: 10/31/21 19:54 Dose: 1 drops Documented by: Thiamine HCl (Thiamine 100 Mg Tab) 100 mg PO BID-W/MEALS [facility] Last Admin: 10/31/21 17:07 Dose: 100 mg Documented by: PHYSICAL EXAMINATION: Patient is lying in the bed. Awake alert and oriented x 3. HEENT: Normocephalic. Neck is supple. Pupils reactive. Nostrils clear. Oral cavity is moist. Neck reveals no JVD, carotid bruits, or thyromegaly. CHEST EXAMINATION: Trachea is central. Symmetrical expansion. Lung daley clear to auscultation and percussion. CARDIAC: Normal S1, S2 with no gallops. No murmurs ABDOMEN: Soft. Bowel sounds normal. No organomegaly. No abdominal bruits. Extremities: reveal no edema. No clubbing or cyanosis Neurologically awake, alert, oriented x2-3 with well-coordinated movements. diffusely weak Skin: No rash or skin lesions. Psychiatric: Cooperative. Musculoskeletal: No joint swelling or deformity. . Assessment: Acute alcohol intoxication on admission with level 325 Hypovolemic hyponatremia, improving bilateral conjunctivitis hypokalemia Macrocytosis secondary to alcohol abuse Acute alcohol withdrawal symptoms COPD not in exacerbation History of withdrawal seizures GERD Neuropathy nondiabetic Anxiety/depression bipolar disorder Severe alcohol abuse DVT prophylaxis Heparin subcu GI prophylaxis. full code Plan: Continue to monitor for any signs of alcohol withdrawal, CIWA protocol as needed, PO ativan as needed continue breathing inhalational treatments and mucinex encourage increase activity Nephrology following and will discontinue IV fluids, continue fluid restrictions replace potassium, K+ is 3.1 today and will repeat am labs social work following and has received insurance auth, awaiting accepting facility, [facility] reviewing Possible discharge in 24 hours. Objective - Vital Signs Vital signs: Vital Signs Temp 98.3 F 10/31/21 04:55 Pulse 89 10/31/21 04:55 Resp 16 10/31/21 04:55 BP 123/81 10/31/21 04:55 Pulse Ox 96 10/31/21 04:55 Intake & Output 10/30/21 10/31/21 10/31/21 18:59 06:59 18:59 Other: Voiding Method Urinal Urinal Diaper Diaper Incontinent Incontinent # Voids 1 - Labs CBC & Chem 7: 10/31/21 05:33 10/31/21 05:33 Labs: Abnormal Lab Results - Last 24 Hours (Table) 10/30/21 10/31/21 Range/Units 09:57 05:33 RBC 2.86 L (4.30-5.90) m/uL Hgb 10.7 L (13.0-17.5) gm/dL Hct 30.8 L (39.0-53.0) % MCV 107.6 H (80.0-100.0) fL MCH 37.3 H (25.0-35.0) pg RDW 16.0 H (11.5-15.5) % Macrocytosis Marked A Sodium 130 L (137-145) mmol/L
[2021-11-01] MEDS: LORazepam 1 MG TAB PO PRN ×3 (00:42→16:42)
[2021-11-01] MEDS: POLYMYXIN B-TRIMETHOPRIM SULF (10,000-1) OPHTH DROPS 10 ML BTL BOTH EYES SCH ×5 (04:39→19:15)
[2021-11-01] MEDS: IPRATROPIUM-ALBUTEROL 3 ML NEB INHALATION SCH ×3 (07:13→19:13)
[2021-11-01] MEDS: HEPARIN SODIUM,PORCINE/PF 5,000 UNIT/0.5 ML SYRINGE SQ SCH ×2 (08:54→19:15)
[2021-11-01] MEDS: FAMOTIDINE 20 MG TAB PO SCH ×2 (08:55→19:15)
[2021-11-01] MEDS: THIAMINE 100 MG TAB PO SCH ×2 (08:55→16:42)
[2021-11-01] MEDS: guaiFENesin 600 MG TABLET.ER PO SCH ×2 (08:55→19:15)
--- NOTE | 2021-11-01 10:25 | P.PN ---
Subjective Patient is seen in follow-up for hyponatremia. Sodium level 131 yesterday. Oral intake fair. No vomiting or diarrhea. No changes overnight. Vital signs are stable. General: The patient appeared well nourished and normally developed. HEENT: Head exam is unremarkable. LUNGS: Breath sounds decreased. HEART: Rate and Rhythm are regular. ABDOMEN: Soft, no distention. EXTREMITITES: No edema. Objective - Vital Signs Vital signs: Vital Signs Temp 98.7 F 11/01/21 05:00 Pulse 101 H 11/01/21 07:27 Resp 16 11/01/21 05:00 BP 130/86 11/01/21 05:00 Pulse Ox 97 11/01/21 07:13 Intake & Output 10/31/21 11/01/21 11/01/21 18:59 06:59 18:59 Intake Total 240 440 Balance 240 440 Intake: Oral 240 440 Other: Voiding Method Urinal Bedside Commode Diaper Urinal Incontinent Incontinent # Voids 4 - Labs CBC & Chem 7: 10/31/21 05:33 10/31/21 05:33 Assessment and Plan Plan: Assessment: 1. Hyponatremia. Partially hypovolemic and improved with IV hydration. Also component of poor solute intake. Urine osmolality 566. Sodium level 131 yesterday. 2. Alcohol abuse. 3. Hypokalemia from poor intake. Replaced. Plan: Off IV fluids. 1200 mL fluid restriction. Encourage oral intake. Morning labs pending.
[2021-11-01 11:15] VITALS: BMI 20.7
[2021-11-01 11:27] VITALS: BP 112/83; TEMP 98.3
[2021-11-01 11:46] LABS: African American GFR (CKD) 128.3 (60.0-200.0); Anion Gap 13.3 mmol/L (10.00-18.00); BUN/Creat Ratio 13.71 Ratio (12.00-20.00); Blood Urea Nitrogen 8.7 mg/dL (9.0-27.0); Calcium 9.1 mg/dL (8.7-10.3); Carbon Dioxide 23.2 mmol/L (20.0-27.5); Magnesium 0.8 mg/dL (1.5-2.4); Non-African American GFR(CKD) 110.7 (60.0-200.0); Potassium 3.6 mmol/L (3.5-5.5)
[2021-11-01] MEDS ORDERED: Magnesium Replacement Protocol 1 EACH MISC MISCELLANE PRN (12:03)
[2021-11-01] MEDS: MAGNESIUM SULFATE-D5W PMX 1 GM in DEXTROSE/WATER 1 100ML.BAG IVPB SCH ×4 (12:33→17:41)
[2021-11-01] MEDS: ACETAMINOPHEN TAB 325 MG TAB PO PRN (12:58)
[2021-11-01 13:20] VITALS: PULSE 103
--- NOTE | 2021-11-01 19:18 | P.DS ---
Providers Date of admission: 10/25/21 23:58 Expected date of discharge: 11/01/21 Attending physician: Ebony Ayala Consults: 10/29/21 14:19 Consult Physician Urgent Consulting Provider: Stormy Doyle Consult Reason/Comments: hyponatremia Do you want consulting provider notified?: Yes Primary care physician: Stated None Hospital Course: Final diagnosis Acute alcohol intoxication on admission with level 325 Hypovolemic hyponatremia, improving bilateral conjunctivitis hypokalemia hypomagnesemia Macrocytosis secondary to alcohol abuse Acute alcohol withdrawal symptoms COPD not in exacerbation History of withdrawal seizures GERD Neuropathy nondiabetic Anxiety/depression bipolar disorder Severe alcohol abuse DVT prophylaxis GI prophylaxis full code Discharge disposition Patient is being discharged in a stable condition with guarded prognosis to home. Patient will have homecare arranged. Patient will follow-up with Dr. huntley in the outpatient setting upon discharge to establish. Total time taken is greater than 35 minutes. 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 Patient states that on detoxing from drinking on admission. Patient does drink 1/5 of vodka per day. Patient states that he feels very weak and tremulous and anxious. Denies any fall or injury. No complaints of chest pain or shortness of breath. Currently patient is very drowsy and lethargic and could not provide much history. Patient has been afebrile. No nausea vomiting or abdominal pain or diarrhea. Laboratory data showed WBC 5.4 hemoglobin 12.1 and platelets 184 Sodium 130 potassium 5.1 chloride 94 BUN 33 and creatinine 0.76 and blood sugar is 70 Serum alcohol level is 325 admission Coronavirus PCR not detected. 11/01/2021 Patient seen and evaluated this morning and currently sitting comfortably up in the chair on room air. Patient states he feels better and able to go home. Patient initially planned on going to rehab for PT/ot therapy and has now changed his mind and would like to return home with home care. Patient was found to be hyponatremic and magnesium was low and replaced and given supplements on discharge and recommend follow up labs with scripts provided. Patient to continue with 1200ml fluid restrictions at home. Currently no reports of chest pain, worsening shortness of breath, or palpitations. Patient is afebrile. Patient will be discharged home today. Guarded prognosis. Patient strongly encouraged to avoid alcohol use. Gen: This is 56-year-old male who is awake, alert and oriented 3, well- developed, well-nourished HEENT: Head is atraumatic, normocephalic. Pupils equal, round. Sclerae is anicteric. NECK: Supple. No JVD. No lymphadenopathy. No thyromegaly. LUNGS: Breath sounds are diminished at the bases with no wheezing or rhonchi noted. No intercostal retractions. HEART: S1, S2 are muffled ABDOMEN: Soft. non-distended, Bowel sounds are present. No masses. No te nderness. EXTREMITIES: no edema No calf tenderness. NEUROLOGICAL: Alert and oriented 3, no focal deficit SKIN: no rashes or lesions noted Please refer to medication reconciliation sheet for a list of medications. Patient Condition at Discharge: Fair Plan - Discharge Summary New Discharge Prescriptions: New Thiamine [Vitamin B-1] 100 mg PO BID-W/MEALS 30 Days #60 tab LORazepam [Ativan] 1 mg PO Q8HR PRN #6 tab PRN Reason: Anxiety Magnesium Oxide [Mag-Ox] 400 mg PO TID 30 Days #90 tablet guaiFENesin [Mucinex] 600 mg PO Q12HR #12 tablet Polymyxin B-Trimeth Sulf Ophth [Polytrim Opthalmic] 1 drops BOTH EYES Q4HR #5 ml Continue Omeprazole [PriLOSEC] 20 mg PO BID Cholecalciferol [Vitamin D3 (25 Mcg = 1000 Iu)] 125 mcg PO DAILY busPIRone HCL 5 mg PO TID PRN PRN Reason: Anxiety Albuterol Sulfate [Proair Hfa] 1 - 2 puff INHALATION RT-Q6H PRN PRN Reason: Shortness Of Breath Ondansetron [Zofran] 4 mg PO Q8HR PRN PRN Reason: Nausea Ibuprofen [Motrin] 800 mg PO QID PRN PRN Reason: Pain Or Fever > 100.5 Famotidine [Pepcid] 20 mg PO DAILY Budesonide/Formoterol Fumarate [Symbicort 160-4.5 Mcg Inhaler] 2 puff INHALATION RT-BID Metoclopramide [Reglan] 10 mg PO HS PRN PRN Reason: Nausea Sucralfate [Carafate] 1 gm PO ACHS traZODone HCL 50 - 100 mg PO HS PRN PRN Reason: Insomnia Meclizine HCl 25 mg PO BID PRN PRN Reason: Vertigo Hydrocortisone Cream [Hydrocortisone 2.5% Cream] 1 applic TOPICAL QID PRN PRN Reason: RASH/DRY SKIN Albuterol Nebulized [Ventolin Nebulized] 2.5 mg INHALATION RT-QID PRN PRN Reason: Shortness Of Breath Discontinued Magnesium 200 mg PO DAILY Discharge Medication List Omeprazole [PriLOSEC] 20 mg PO BID 12/02/19 [History] Cholecalciferol [Vitamin D3 (25 Mcg = 1000 Iu)] 125 mcg PO DAILY 05/30/21 [History] Albuterol Sulfate [Proair Hfa] 1 - 2 puff INHALATION RT-Q6H PRN 08/16/21 [History] Metoclopramide [Reglan] 10 mg PO HS PRN 08/16/21 [History] Ondansetron [Zofran] 4 mg PO Q8HR PRN 08/16/21 [History] Sucralfate [Carafate] 1 gm PO ACHS 08/16/21 [History] busPIRone HCL 5 mg PO TID PRN 08/16/21 [History] traZODone HCL 50 - 100 mg PO HS PRN 08/16/21 [History] Albuterol Nebulized [Ventolin Nebulized] 2.5 mg INHALATION RT-QID PRN 10/25/21 [History] Budesonide/Formoterol Fumarate [Symbicort 160-4.5 Mcg Inhaler] 2 puff INHALATION RT-BID 10/25/21 [History] Famotidine [Pepcid] 20 mg PO DAILY 10/25/21 [History] Hydrocortisone Cream [Hydrocortisone 2.5% Cream] 1 applic TOPICAL QID PRN 10/25/21 [History] Ibuprofen [Motrin] 800 mg PO QID PRN 10/25/21 [History] Meclizine HCl 25 mg PO BID PRN 10/25/21 [History] LORazepam [Ativan] 1 mg PO Q8HR PRN #6 tab 11/01/21 [Rx] Magnesium Oxide [Mag-Ox] 400 mg PO TID 30 Days #90 tablet 11/01/21 [Rx] Polymyxin B-Trimeth Sulf Ophth [Polytrim Opthalmic] 1 drops BOTH EYES Q4HR #5 ml 11/01/21 [Rx] Thiamine [Vitamin B-1] 100 mg PO BID-W/MEALS 30 Days #60 tab 11/01/21 [Rx] guaiFENesin [Mucinex] 600 mg PO Q12HR #12 tablet 11/01/21 [Rx] Follow up Appointment(s)/Referral(s): [facility], [NON-STAFF] - 1 Week Josy Huntley MD [REFERRING] - 1 Week Ambulatory/Diagnostic Orders: Basic Metabolic Panel [LAB.AMB] Time Frame: 3 Days, Location: None Selected Patient Instructions/Handouts: Lorazepam (By mouth), Thiamine (By mouth), Magnesium Oxide (By mouth), Polymyxin B/Trimethoprim (Into the eye), Basic Metabolic Panel (GEN), Alcohol Intoxication (DC), Abuse of Alcohol (DC), At-Risk Alcohol Use (DC), Alcohol Withdrawal (DC), Fluid Restriction (DC), Anemia (DC), Alcohol Dependence (DC) Activity/Diet/Wound Care/Special Instructions: Activity Limited until follow-up Follow-up with primary care provider and establish Continue taking medications as prescribed Continue with fluid restricted of 1200 mL per day and increased and encouraged oral intake Avoid alcohol intake Continue with breathing inhalational treatments repeat labs in 2-3 days Discharge Disposition: HOME WITH HOME HEALTH SERVICES
== END 2021-11-01 20:21 | disposition home health service (06) | DRG 897 ==
LOC: EC 20:24 → 5NMEDONC 23:58
PROVIDERS: ADMIT Internal Medicine; ATTEND Internal Medicine
DX: F10.229 Alcohol dependence with intoxication, unspecified (principal); E87.1 Hypo-osmolality and hyponatremia; F10.239 Alcohol dependence with withdrawal, unspecified; F12.90 Cannabis use, unspecified, uncomplicated; F17.200 Nicotine dependence, unspecified, uncomplicated; F31.9 Bipolar disorder, unspecified; E87.6 Hypokalemia; Z20.822 Contact with and (suspected) exposure to COVID-19; F41.9 Anxiety disorder, unspecified; G40.909 Epilepsy, unspecified, not intractable, without status epilepticus; E86.1 Hypovolemia; E83.42 Hypomagnesemia; D75.89 Other specified diseases of blood and blood-forming organs; D64.9 Anemia, unspecified; D69.6 Thrombocytopenia, unspecified; J44.9 Chronic obstructive pulmonary disease, unspecified; K21.9 Gastro-esophageal reflux disease without esophagitis; Y90.8 Blood alcohol level of 240 mg/100 ml or more; Z79.51 Long term (current) use of inhaled steroids; H10.9 Unspecified conjunctivitis; G62.9 Polyneuropathy, unspecified
CPT/HCPCS: 36415; 71045; 71046; 80048; 80053; 80320; 83735; 83935; 84295; 85025; 87635; 93005; 94640; 94760; 96361; 96374; 99285

== ENCOUNTER 2021-11-18 09:50 | Inpatient (IN) | payer MEDICARE, OTHER ==
[2021-11-18] MEDS ORDERED: SODIUM CHLORIDE 0.9% 1,000 ML IV ONE ×2 (10:12→13:58)
[2021-11-18 10:54] LABS: INR 0.9 (<1.2); Partial Thromboplastin Time 24.8 sec (22.0-30.0); Prothrombin Time 9.4 sec (9.0-12.0)
--- NOTE | 2021-11-18 10:59 | XR ---
EXAMINATION TYPE: XR chest 1V portable DATE OF EXAM: 11/18/2021 COMPARISON: Chest x-ray 10/28/2021 HISTORY: Altered mental status TECHNIQUE: Single frontal view of the chest is obtained. FINDINGS: Patient is rotated, there are overlying leads. There is no focal air space opacity, pleura l effusion, or pneumothorax seen. The cardiac silhouette size is within normal limits. The osseous structures are intact. IMPRESSION: No acute process.
--- NOTE | 2021-11-18 11:02 | CT ---
EXAMINATION TYPE: CT brain wo con DATE OF EXAM: 11/18/2021 COMPARISON: 08/17/2021 HISTORY: 56-year-old male confusion, Altered mental status. TECHNIQUE: Examination was done in axial plane without intravenous contrast. Coronal and sagittal r econstructions performed. CT DLP: 1099.4 mGycm Automated exposure control for dose reduction was used. FINDINGS: There is no evidence of acute intracranial hemorrhage, acute ischemic changes, mass, mass-effect, or extra-axial fluid collection. There is no effacement of cerebral sulci or basal subarachnoid cister ns. There is no hydrocephalus. There is no midline shift. Chadwick-white matter distinction is preserv ed. Mild cerebral cortical volume loss Mild mucosal thickening right maxillary sinus. Leftward nasal septal deviation. Mastoid air cells are well pneumatized. IMPRESSION: 1. Mild generalized atrophy. No acute intracranial abnormality seen. 2. Mild chronic right maxillary sinus disease.
[2021-11-18 11:03] LABS: Basophils % (A) 0 %; Eosinophils # (A) 0.1 k/uL (0-0.7); Eosinophils % (A) 0 %; HCT 28.4 % (39.0-53.0); HGB 9.7 gm/dL (13.0-17.5); Lymphocytes # (A) 0.5 k/uL (1.0-4.8); Lymphocytes % (A) 2 %; MCH 35.4 pg (25.0-35.0); MCHC 34.2 g/dL (31.0-37.0); MCV 103.7 fL (80.0-100.0); Macrocytosis Slight; Mean Platelet Volume 8.1; Monocytes % (A) 4 %; Neutrophils # (A) 23.7 k/uL (1.3-7.7); Neutrophils % (A) 93 %; Platelet Count 320 k/uL (150-450); RBC 2.74 m/uL (4.30-5.90); RDW 14.6 % (11.5-15.5); WBC 25.4 k/uL (3.8-10.6)
[2021-11-18 11:07] LABS: ALT 102 U/L (4-49); AST 350 U/L (17-59); African American GFR (CKD) >90 (>60 ml/min/1.73 sqM); Albumin 3.9 g/dL (3.5-5.0); Alcohol <10 mg/dL; Alkaline Phosphatase 55 U/L (38-126); Anion Gap 16 mmol/L; Blood Urea Nitrogen 35 mg/dL (9-20); Carbon Dioxide 20 mmol/L (22-30); Chloride 95 mmol/L (98-107); Glucose 119 mg/dL (74-99); Magnesium 1.2 mg/dL (1.6-2.3); Non-African American GFR(CKD) >90 (>60 ml/min/1.73 sqM); Potassium 3.7 mmol/L (3.5-5.1); Sodium 131 mmol/L (137-145); Total Bilirubin 0.6 mg/dL (0.2-1.3); Total Protein 6.9 g/dL (6.3-8.2)
[2021-11-18 11:31] LABS: Glucose,Whole Blood 139 mg/dL (75-99)
--- NOTE | 2021-11-18 11:52 | ED ---
General Adult HPI - General Chief complaint: Alcohol Stated complaint: Poss ETOH Time Seen by Provider: 11/18/21 09:50 Source: patient, EMS Mode of arrival: EMS Limitations: no limitations - History of Present Illness Initial comments: This is a 56-year-old male who presents to the emergency department via EMS. EMS is reported is that the patient may be withdrawing from alcohol however they state he just got out of [facility] half an hour prior to them calling us. Patient himself states he did have a couple of drinks since he got out of [facility] but he denies any drug use. But he is a very poor historian secondary to him being so lethargic and only staying awake while being physically stimulated to stay awake. Patient states he was in [facility] for 4 days however EMS stated he was in [facility] per family for 2 weeks. Patient does not complain of any pain patient denies headache patient denies any injury patient denies any chest pain difficulty breathing first breath per patient denies abdominal pain patient denies any nausea vomiting diarrhea patient denies any recent fever chills or cough. - Related Data Home Medications Medication Instructions Recorded Confirmed Omeprazole [PriLOSEC] 20 mg PO BID 12/02/19 10/25/21 Cholecalciferol [Vitamin D3 (25 125 mcg PO DAILY 05/30/21 10/25/21 Mcg = 1000 Iu)] Albuterol Sulfate [Proair Hfa] 1 - 2 puff INHALATION RT-Q6H PRN 08/16/21 10/25/21 Metoclopramide [Reglan] 10 mg PO HS PRN 08/16/21 10/25/21 Ondansetron [Zofran] 4 mg PO Q8HR PRN 08/16/21 10/25/21 Sucralfate [Carafate] 1 gm PO ACHS 08/16/21 10/25/21 busPIRone HCL 5 mg PO TID PRN 08/16/21 10/25/21 traZODone HCL 50 - 100 mg PO HS PRN 08/16/21 10/25/21 Albuterol Nebulized [Ventolin 2.5 mg INHALATION RT-QID PRN 10/25/21 10/25/21 Nebulized] Budesonide/Formoterol Fumarate 2 puff INHALATION RT-BID 10/25/21 10/25/21 [Symbicort 160-4.5 Mcg Inhaler] Famotidine [Pepcid] 20 mg PO DAILY 10/25/21 10/25/21 Hydrocortisone Cream 1 applic TOPICAL QID PRN 10/25/21 10/25/21 [Hydrocortisone 2.5% Cream] Ibuprofen [Motrin] 800 mg PO QID PRN 10/25/21 10/25/21 Meclizine HCl 25 mg PO BID PRN 10/25/21 10/25/21 Previous Rx's Medication Instructions Recorded LORazepam [Ativan] 1 mg PO Q8HR PRN #6 tab 11/01/21 Magnesium Oxide [Mag-Ox] 400 mg PO TID 30 Days #90 tablet 11/01/21 Polymyxin B-Trimeth Sulf Ophth 1 drops BOTH EYES Q4HR #5 ml 11/01/21 [Polytrim Opthalmic] Thiamine [Vitamin B-1] 100 mg PO BID-W/MEALS 30 Days #60 11/01/21 tab guaiFENesin [Mucinex] 600 mg PO Q12HR #12 tablet 11/01/21 Allergies Allergy/AdvReac Type Severity Reaction Status Date / Time No Known Allergies Allergy Verified 11/18/21 10:04 Review of Systems ROS Statement: Those systems with pertinent positive or pertinent negative responses have been documented in the HPI. ROS Other: All systems not noted in ROS Statement are negative. 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 Severe ETOH abuse. Hx alcohol withdrawal seizures/DTs, 1 yr ago, aspiration pneum onia, encephalopathy d/t alcohol, falls, thrombocytopenia, chronic SOB. History of Any Multi-Drug Resistant Organisms: None Reported Past Surgical History: Ear Surgery, Tonsillectomy Additional Past Surgical History / Comment(s): Bilateral mastoidectomies, sinus surgery and vocal cord scraping, cataract surgery, blocks for migraines. Past Anesthesia/Blood Transfusion Reactions: No Reported Reaction, Motion Sickness Past Psychological History: Anxiety, Bipolar, Depression Smoking Status: Current every day smoker Past Alcohol Use History: Daily, Heavy Past Drug Use History: Marijuana - Past Family History Father Family Medical History: Cancer Mother Family Medical History: Hyperlipidemia Brother(s) Additional Family Medical History / Comment(s): Bipolar, schizoprenia. General Exam - General Exam Comments Initial Comments: GENERAL: Patient is well-developed and well-nourished. Patient is nontoxic and well- hydrated and is in no acute distress. Patient is very lethargic she does respond to pain. Answers questions but falls right to sleep quickly. ENT: Neck is soft and supple. No significant lymphadenopathy is noted. Oropharynx is clear. Moist mucous membranes. Neck has full range of motion without eliciting any pain. EYES: The sclera were anicteric and conjunctiva were pink and moist. Extraocular movements were intact and pupils were equal round and reactive to light. Eyelids were unremarkable. PULMONARY: Unlabored respirations. Good breath sounds bilaterally. No audible rales rho nchi or wheezing was noted. CARDIOVASCULAR: There is a regular rate and rhythm without any murmurs gallops or rubs. ABDOMEN: Soft and nontender with normal bowel sounds. SKIN: Patient has multiple healing abrasions on both arms and legs. NEUROLOGIC: Patient is alert and oriented 2. Cranial nerves II through XII are grossly intact. Motor and sensory are also intact. Normal speech, volume and content. Symmetrical smile. MUSCULOSKELETAL: Normal extremities with adequate strength and full range of motion. LYMPHATICS: No significant lymphadenopathy is noted PSYCHIATRIC: Unable to assess Limitations: no limitations Course Vital Signs 11/18/21 11/18/21 09:52 13:17 Temperature 99.1 F 100.5 F H Pulse Rate 118 H 105 H Respiratory 18 18 Rate Blood Pressure 128/84 109/76 O2 Sat by Pulse 96 98 Oximetry Medical Decision Making - Medical Decision Making EKG shows sinus tachycardia with occasional PVC at 111 bpm HI interval 246 dresses 88 QT interval 344 QTC is 467. Patient's EKG shows no ST segment elevation or depression. Chest x-ray shows no acute abnormality. CT of the brain shows no acute abnormality. At 1:15 the patient developed a fever for 100.5. Patient was given a total of 2 and half liters of fluid. Patient had 2 g of Rocephin given. Patient has no obvious source of infection however the right arm is a little bit red and swollen and he will be diagnosed at least initially with cellulitis of the left arm which was established 1:15. I spoke with some physicians agreed to admit the patient admitted the patient I wrote admitting orders - Lab Data Result diagrams: 11/18/21 10:18 11/18/21 10:18 Lab Results 11/18/21 11/18/21 11/18/21 Range/Units 10:18 10:18 10:18 WBC 25.4 H (3.8-10.6) k/uL RBC 2.74 L (4.30-5.90) m/uL Hgb 9.7 L (13.0-17.5) gm/dL Hct 28.4 L (39.0-53.0) % MCV 103.7 H (80.0-100.0) fL MCH 35.4 H (25.0-35.0) pg MCHC 34.2 (31.0-37.0) g/dL RDW 14.6 (11.5-15.5) % Plt Count 320 (150-450) k/uL MPV 8.1 Neutrophils % 93 % Lymphocytes % 2 % Monocytes % 4 % Eosinophils % 0 % Basophils % 0 % Neutrophils # 23.7 H (1.3-7.7) k/uL Lymphocytes # 0.5 L (1.0-4.8) k/uL Monocytes # 1.0 (0-1.0) k/uL Eosinophils # 0.1 (0-0.7) k/uL Basophils # 0.0 (0-0.2) k/uL Macrocytosis Slight PT 9.4 (9.0-12.0) sec INR 0.9 (<1.2) APTT 24.8 (22.0-30.0) sec Sodium (137-145) mmol/L Potassium (3.5-5.1) mmol/L Chloride (98-107) mmol/L Carbon Dioxide (22-30) mmol/L Anion Gap mmol/L BUN (9-20) mg/dL Creatinine (0.66-1.25) mg/dL Est GFR (CKD-EPI)AfAm (>60 ml/min/1.73 sqM) Est GFR (CKD-EPI)NonAf (>60 ml/min/1.73 sqM) Glucose (74-99) mg/dL POC Glucose (mg/dL) (75-99) mg/dL POC Glu Protective Officer ID Plasma Lactic Acid Shoaib (0.7-2.0) mmol/L Calcium (8.4-10.2) mg/dL Magnesium (1.6-2.3) mg/dL Total Bilirubin (0.2-1.3) mg/dL AST (17-59) U/L ALT (4-49) U/L Alkaline Phosphatase (38-126) U/L Ammonia (<30) umol/L Troponin I (0.000-0.034) ng/mL Total Protein (6.3-8.2) g/dL Albumin (3.5-5.0) g/dL Urine Color Yellow Urine Appearance Clear (Clear) Urine pH 6.0 (5.0-8.0) Ur Specific [place] 1.023 (1.001-1.035) Urine Protein 1+ H (Negative) Urine Glucose (UA) Negative (Negative) Urine Ketones 3+ H (Negative) Urine Blood Trace H (Negative) Urine Nitrite Negative (Negative) Urine Bilirubin 1+ H (Negative) Urine Urobilinogen 2.0 (<2.0) mg/dL Ur Leukocyte Esterase Negative (Negative) Urine RBC <1 (0-5) /hpf Urine WBC 1 (0-5) /hpf Ur Squamous Epith Cells <1 (0-4) /hpf Hyaline Casts 1 (0-2) /lpf Urine Mucus Rare H (None) /hpf Urine Opiates Screen Not Detected (NotDetected) Ur Oxycodone Screen Not Detected (NotDetected) Urine Methadone Screen Not Detected (NotDetected) Ur Propoxyphene Screen Not Detected (NotDetected) Ur Barbiturates Screen Not Detected (NotDetected) U Tricyclic Antidepress Not Detected (NotDetected) Ur Phencyclidine Scrn Not Detected (NotDetected) Ur Amphetamines Screen Not Detected (NotDetected) U Methamphetamines Scrn Not Detected (NotDetected) U Benzodiazepines Scrn Detected H (NotDetected) Urine Cocaine Screen Not Detected (NotDetected) U Marijuana (THC) Screen Detected H (NotDetected) Serum Alcohol mg/dL 11/18/21 11/18/21 11/18/21 Range/Units 10:18 10:18 10:18 WBC (3.8-10.6) k/uL RBC (4.30-5.90) m/uL Hgb (13.0-17.5) gm/dL Hct (39.0-53.0) % MCV (80.0-100.0) fL MCH (25.0-35.0) pg MCHC (31.0-37.0) g/dL RDW (11.5-15.5) % Plt Count (150-450) k/uL MPV Neutrophils % % Lymphocytes % % Monocytes % % Eosinophils % % Basophils % % Neutrophils # (1.3-7.7) k/uL Lymphocytes # (1.0-4.8) k/uL Monocytes # (0-1.0) k/uL Eosinophils # (0-0.7) k/uL Basophils # (0-0.2) k/uL Macrocytosis PT (9.0-12.0) sec INR (<1.2) APTT (22.0-30.0) sec Sodium 131 L (137-145) mmol/L Potassium 3.7 (3.5-5.1) mmol/L Chloride 95 L (98-107) mmol/L Carbon Dioxide 20 L (22-30) mmol/L Anion Gap 16 mmol/L BUN 35 H (9-20) mg/dL Creatinine 0.69 (0.66-1.25) mg/dL Est GFR (CKD-EPI)AfAm >90 (>60 ml/min/1.73 sqM) Est GFR (CKD-EPI)NonAf >90 (>60 ml/min/1.73 sqM) Glucose 119 H (74-99) mg/dL POC Glucose (mg/dL) (75-99) mg/dL POC Glu Protective Officer ID Plasma Lactic Acid Shoaib (0.7-2.0) mmol/L Calcium 9.0 (8.4-10.2) mg/dL Magnesium 1.2 L (1.6-2.3) mg/dL Total Bilirubin 0.6 (0.2-1.3) mg/dL AST 350 H (17-59) U/L ALT 102 H (4-49) U/L Alkaline Phosphatase 55 (38-126) U/L Ammonia 13 (<30) umol/L Troponin I <0.012 (0.000-0.034) ng/mL Total Protein 6.9 (6.3-8.2) g/dL Albumin 3.9 (3.5-5.0) g/dL Urine Color Urine Appearance (Clear) Urine pH (5.0-8.0) Ur Specific [place] (1.001-1.035) Urine Protein (Negative) Urine Glucose (UA) (Negative) Urine Ketones (Negative) Urine Blood (Negative) Urine Nitrite (Negative) Urine Bilirubin (Negative) Urine Urobilinogen (<2.0) mg/dL Ur Leukocyte Esterase (Negative) Urine RBC (0-5) /hpf Urine WBC (0-5) /hpf Ur Squamous Epith Cells (0-4) /hpf Hyaline Casts (0-2) /lpf Urine Mucus (None) /hpf Urine Opiates Screen (NotDetected) Ur Oxycodone Screen (NotDetected) Urine Methadone Screen (NotDetected) Ur Propoxyphene Screen (NotDetected) Ur Barbiturates Screen (NotDetected) U Tricyclic Antidepress (NotDetected) Ur Phencyclidine Scrn (NotDetected) Ur Amphetamines Screen (NotDetected) U Methamphetamines Scrn (NotDetected) U Benzodiazepines Scrn (NotDetected) Urine Cocaine Screen (NotDetected) U Marijuana (THC) Screen (NotDetected) Serum Alcohol <10 mg/dL 11/18/21 11/18/21 Range/Units 11:30 11:55 WBC (3.8-10.6) k/uL RBC (4.30-5.90) m/uL Hgb (13.0-17.5) gm/dL Hct (39.0-53.0) % MCV (80.0-100.0) fL MCH (25.0-35.0) pg MCHC (31.0-37.0) g/dL RDW (11.5-15.5) % Plt Count (150-450) k/uL MPV Neutrophils % % Lymphocytes % % Monocytes % % Eosinophils % % Basophils % % Neutrophils # (1.3-7.7) k/uL Lymphocytes # (1.0-4.8) k/uL Monocytes # (0-1.0) k/uL Eosinophils # (0-0.7) k/uL Basophils # (0-0.2) k/uL Macrocytosis PT (9.0-12.0) sec INR (<1.2) APTT (22.0-30.0) sec Sodium (137-145) mmol/L Potassium (3.5-5.1) mmol/L Chloride (98-107) mmol/L Carbon Dioxide (22-30) mmol/L Anion Gap mmol/L BUN (9-20) mg/dL Creatinine (0.66-1.25) mg/dL Est GFR (CKD-EPI)AfAm (>60 ml/min/1.73 sqM) Est GFR (CKD-EPI)NonAf (>60 ml/min/1.73 sqM) Glucose (74-99) mg/dL POC Glucose (mg/dL) 139 H (75-99) mg/dL POC Glu Protective Officer ID Monie Johnston Plasma Lactic Acid Shoaib 0.7 (0.7-2.0) mmol/L Calcium (8.4-10.2) mg/dL Magnesium (1.6-2.3) mg/dL Total Bilirubin (0.2-1.3) mg/dL AST (17-59) U/L ALT (4-49) U/L Alkaline Phosphatase (38-126) U/L Ammonia (<30) umol/L Troponin I (0.000-0.034) ng/mL Total Protein (6.3-8.2) g/dL Albumin (3.5-5.0) g/dL Urine Color Urine Appearance (Clear) Urine pH (5.0-8.0) Ur Specific [place] (1.001-1.035) Urine Protein (Negative) Urine Glucose (UA) (Negative) Urine Ketones (Negative) Urine Blood (Negative) Urine Nitrite (Negative) Urine Bilirubin (Negative) Urine Urobilinogen (<2.0) mg/dL Ur Leukocyte Esterase (Negative) Urine RBC (0-5) /hpf Urine WBC (0-5) /hpf Ur Squamous Epith Cells (0-4) /hpf Hyaline Casts (0-2) /lpf Urine Mucus (None) /hpf Urine Opiates Screen (NotDetected) Ur Oxycodone Screen (NotDetected) Urine Methadone Screen (NotDetected) Ur Propoxyphene Screen (NotDetected) Ur Barbiturates Screen (NotDetected) U Tricyclic Antidepress (NotDetected) Ur Phencyclidine Scrn (NotDetected) Ur Amphetamines Screen (NotDetected) U Methamphetamines Scrn (NotDetected) U Benzodiazepines Scrn (NotDetected) Urine Cocaine Screen (NotDetected) U Marijuana (THC) Screen (NotDetected) Serum Alcohol mg/dL Disposition Clinical Impression: Cellulitis of arm, left, Sepsis, Alcohol abuse Disposition: ADMITTED IP TO THIS HOSP Referrals: None,Stated [Primary Care Provider] - 1-2 days Time of Disposition: 13:23
[2021-11-18 12:21] LABS: Appearance,Urine Clear (Clear); Bilirubin,Urine 1+ (Negative); Blood,Urine Trace (Negative); Color,Urine Yellow; Glucose,Urine (UA) Negative (Negative); Hyaline Casts,Urine 1 /lpf (0-2); Ketones,Urine 3+ (Negative); Leukocyte Esterase,Urine Negative (Negative); Mucus,Urine Rare /hpf; Nitrite,Urine Negative (Negative); Protein,Urine 1+ (Negative); RBC,Urine <1 /hpf (0-5); Specific Gravity,Urine 1.023 (1.001-1.035); Squamous Epithelial Cell,Urine <1 /hpf (0-4); WBC,Urine 1 /hpf (0-5)
[2021-11-18 12:46] LABS: Amphetamine Screen,Urine Not Detected (NotDetected); Barbiturate Screen,Urine Not Detected (NotDetected); Benzodiazepines Screen,Urine Detected (NotDetected); Cocaine Screen,Urine Not Detected (NotDetected); Methadone Screen, Urine Not Detected (NotDetected); Opiate Screen,Urine Not Detected (NotDetected); Oxycodone Screen, Urine Not Detected (NotDetected); Phencyclidine Screen,Urine Not Detected (NotDetected); Tricyclic Antidepressant,Urine Not Detected (NotDetected); Urn Cannabinoid Scrn Detected (NotDetected)
[2021-11-18] MEDS ORDERED: SODIUM CHLORIDE 0.9% 2,000 ML IV ONE (13:16)
[2021-11-18] MEDS ORDERED: IBUPROFEN IV 800 MG in SODIUM CHLORIDE 0.9% 250 ML IV ONE (13:16)
[2021-11-18] MEDS ORDERED: ACETAMINOPHEN TAB 500 MG TAB PO STA (13:17)
[2021-11-18] MEDS ORDERED: ACETAMINOPHEN SUPPOSITORY 650 MG SUPP RECTAL STA (13:44)
[2021-11-18] MEDS ORDERED: AMPICILLIN-SULBACTAM 3 GM in SODIUM CHLORIDE 0.9% 100 ML IVPB STA (14:01)
[2021-11-18] MEDS ORDERED: busPIRone HCl 5 MG TAB PO PRN (16:52)
[2021-11-18] MEDS ORDERED: traZODone HCL 50 MG TAB PO PRN (16:52)
[2021-11-18] MEDS ORDERED: METOCLOPRAMIDE 10 MG TAB PO PRN (16:52)
[2021-11-18] MEDS ORDERED: THIAMINE 100 MG/ML 2 ML VIAL IM STA (16:59)
[2021-11-18] MEDS ORDERED: LORazepam 2 MG/ML INJ IV PRN ×3 (16:59)
--- NOTE | 2021-11-18 17:01 | P.HPIM ---
History of Present Illness H&P Date: 11/18/21 56-year-old male who presents to the emergency department via EMS. EMS is reported is that the patient may be withdrawing from alcohol however they state he just got out of long term half an hour prior to them calling us. Patient himself states he did have a couple of drinks since he got out of long term but he denies any drug use. But he is a very poor historian secondary to him being so lethargic and only staying awake while being physically stimulated to stay awake. Patient states he was in long term for 4 days however EMS stated he was in long term per family for 2 weeks. Patient does not complain of any pain patient denies headache patient denies any injury patient denies any chest pain difficulty breathing first breath per patient denies abdominal pain patient denies any nausea vomiting diarrhea patient denies any recent fever chills or cough. EKG shows sinus tachycardia with occasional PVC at 111 bpm DC interval 246 dresses 88 QT interval 344 QTC is 467. Patient's EKG shows no ST segment elev ation or depression. Chest x-ray shows no acute abnormality. CT of the brain shows no acute abnormality. At 1:15 the patient developed a fever for 100.5. Patient was given a total of 2 and half liters of fluid. Patient had 2 g of Rocephin given. Patient has no obvious source of infection however the right arm is a little bit red and swollen and he will be diagnosed initially with cellulitis of the left arm Review of Systems REVIEW OF SYSTEMS: CONSTITUTIONAL: No fever, no malaise, no fatigue. HEENT: No recent visual problems or hearing problems. Denied any sore throat. CARDIOVASCULAR: No chest pain, orthopnea, PND, no palpitations, no syncope. PULMONARY: No shortness of breath, no cough, no hemoptysis. GASTROINTESTINAL: No diarrhea, no nausea, no vomiting, no abdominal pain. NEUROLOGICAL: No headaches, no weakness, no numbness. HEMATOLOGICAL: Denies any bleeding or petechiae. GENITOURINARY: Denies any burning micturition, frequency, or urgency. MUSCULOSKELETAL/RHEUMATOLOGICAL: Denies any joint pain, swelling, or any muscle pain. ENDOCRINE: Denies any polyuria or polydipsia. The rest of the 14-point review of systems is negative. 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 Severe ETOH abuse. Hx alcohol withdrawal seizures/DTs, 1 yr ago, aspiration pneumonia, encephalopathy d/t alcohol, falls, thrombocytopenia, chronic SOB. History of Any Multi-Drug Resistant Organisms: None Reported Past Surgical History: Ear Surgery, Tonsillectomy Additional Past Surgical History / Comment(s): Bilateral mastoidectomies, sinus surgery and vocal cord scraping, cataract surgery, blocks for migraines. Past Anesthesia/Blood Transfusion Reactions: No Reported Reaction, Motion Sickness Past Psychological History: Anxiety, Bipolar, Depression Smoking Status: Current every day smoker Past Alcohol Use History: Daily, Heavy Past Drug Use History: Marijuana - Past Family History Father Family Medical History: Cancer Mother Family Medical History: Hyperlipidemia Brother(s) Additional Family Medical History / Comment(s): Bipolar, schizoprenia. Medications and Allergies Home Medications Medication Instructions Recorded Confirmed Type Omeprazole [PriLOSEC] 20 mg PO BID 12/02/19 11/18/21 History Cholecalciferol [Vitamin D3 (25 125 mcg PO DAILY 05/30/21 11/18/21 History Mcg = 1000 Iu)] Albuterol Sulfate [Proair Hfa] 1 - 2 puff INHALATION RT-Q6H PRN 08/16/21 11/18/21 History Metoclopramide [Reglan] 10 mg PO HS PRN 08/16/21 11/18/21 History Ondansetron [Zofran] 4 mg PO Q8HR PRN 08/16/21 11/18/21 History Sucralfate [Carafate] 1 gm PO ACHS 08/16/21 11/18/21 History busPIRone HCL 5 mg PO TID PRN 08/16/21 11/18/21 History traZODone HCL 50 - 100 mg PO HS PRN 08/16/21 11/18/21 History Albuterol Nebulized [Ventolin 2.5 mg INHALATION RT-QID PRN 10/25/21 11/18/21 History Nebulized] Budesonide/Formoterol Fumarate 2 puff INHALATION RT-BID 10/25/21 11/18/21 History [Symbicort 160-4.5 Mcg Inhaler] Famotidine [Pepcid] 20 mg PO DAILY 10/25/21 11/18/21 History Hydrocortisone Cream 1 applic TOPICAL QID PRN 10/25/21 11/18/21 History [Hydrocortisone 2.5% Cream] Ibuprofen [Motrin] 800 mg PO QID PRN 10/25/21 11/18/21 History Meclizine HCl 25 mg PO BID PRN 10/25/21 11/18/21 History LORazepam [Ativan] 1 mg PO Q8HR PRN #6 tab 11/01/21 11/18/21 Rx Magnesium Oxide [Mag-Ox] 400 mg PO TID 30 Days #90 tablet 11/01/21 11/18/21 Rx Thiamine [Vitamin B-1] 100 mg PO BID-W/MEALS 30 Days #60 11/01/21 11/18/21 Rx tab guaiFENesin [Mucinex] 600 mg PO Q12HR PRN 11/18/21 11/18/21 History Allergies Allergy/AdvReac Type Severity Reaction Status Date / Time No Known Allergies Allergy Verified 11/18/21 13:19 Physical Exam Vitals: Vital Signs Temp Pulse Resp BP Pulse Ox 11/18/21 13:58 120 H 22 121/71 98 11/18/21 13:17 100.5 F H 105 H 18 109/76 98 11/18/21 09:52 99.1 F 118 H 18 128/84 96 Intake and Output 11/17/21 11/18/21 11/18/21 22:59 06:59 14:59 Other: Weight 79.379 kg - Constitutional General appearance: Present: average body habitus, cooperative, no acute distress Eyes: Present: anicteric sclerae, EOMI, PERRLA, normal appearance ENT: Present: hearing grossly normal, normal oropharynx Neck: Present: normal ROM. Absent: lymphadenopathy, rigidity, thyromegaly Carotids: negative: bruit present Respiratory: bilateral: CTA, negative: rales, rhonchi, wheezing Cardiovascular; Rhythm: regular; normal: S1, S2 Abnormal Heart Sounds: Absent: systolic murmur, diastolic murmur Gastrointestinal: Present: normal bowel sounds, soft. Absent: distended, organomegaly, tenderness Genitourinary Comment(s): deferred Integumentary: Multiple healing abrasions present on both arms and legs with some erythema induration and swelling of left arm Neurologic: Present: CNII-XII intact. Absent: focal deficits Musculoskeletal: Present: gait normal, strength equal bilaterally Psychiatric: Present: A&O x's 3, appropriate affect, intact judgment & insight Results CBC & Chem 7: 11/18/21 10:18 11/18/21 10:18 Labs: Abnormal Lab Results - Last 24 Hours (Table) 11/18/21 11/18/21 11/18/21 Range/Units 10:18 10:18 10:18 WBC 25.4 H (3.8-10.6) k/uL RBC 2.74 L (4.30-5.90) m/uL Hgb 9.7 L (13.0-17.5) gm/dL Hct 28.4 L (39.0-53.0) % MCV 103.7 H (80.0-100.0) fL MCH 35.4 H (25.0-35.0) pg Neutrophils # 23.7 H (1.3-7.7) k/uL Lymphocytes # 0.5 L (1.0-4.8) k/uL Sodium 131 L (137-145) mmol/L Chloride 95 L (98-107) mmol/L Carbon Dioxide 20 L (22-30) mmol/L BUN 35 H (9-20) mg/dL Glucose 119 H (74-99) mg/dL POC Glucose (mg/dL) (75-99) mg/dL Magnesium 1.2 L (1.6-2.3) mg/dL AST 350 H (17-59) U/L ALT 102 H (4-49) U/L Urine Protein 1+ H (Negative) Urine Ketones 3+ H (Negative) Urine Blood Trace H (Negative) Urine Bilirubin 1+ H (Negative) Urine Mucus Rare H (None) /hpf U Benzodiazepines Scrn Detected H (NotDetected) U Marijuana (THC) Screen Detected H (NotDetected) 11/18/21 Range/Units 11:30 WBC (3.8-10.6) k/uL RBC (4.30-5.90) m/uL Hgb (13.0-17.5) gm/dL Hct (39.0-53.0) % MCV (80.0-100.0) fL MCH (25.0-35.0) pg Neutrophils # (1.3-7.7) k/uL Lymphocytes # (1.0-4.8) k/uL Sodium (137-145) mmol/L Chloride (98-107) mmol/L Carbon Dioxide (22-30) mmol/L BUN (9-20) mg/dL Glucose (74-99) mg/dL POC Glucose (mg/dL) 139 H (75-99) mg/dL Magnesium (1.6-2.3) mg/dL AST (17-59) U/L ALT (4-49) U/L Urine Protein (Negative) Urine Ketones (Negative) Urine Blood (Negative) Urine Bilirubin (Negative) Urine Mucus (None) /hpf U Benzodiazepines Scrn (NotDetected) U Marijuana (THC) Screen (NotDetected) Assessment and Plan Assessment: 1. Leukocytosis/sepsis - Patient has been placed on Unasyn 3 g IV every 6 hours; we will monitor blood cultures and urine culture; monitor CBC, CMP and pro-calcitonin; consult ID 2. Cellulitis, left arm; IV Unasyn as indicated above 3. Chronic EtOH use/possible withdrawal; rule out EtOH withdrawal seizures; patient will be placed on CIWA protocol with Ativan 4. COPD/asthma; not in exacerbation; we will continue with home inhaler therapy in form of amantadine nebulizer treatments 4 times a day and albuterol inhaler every 6 hours when necessary; continue with Symbicort inhaler twice a day 5. Gastroesophageal reflux disease; continue with home dose of Protonix DVT prophylaxis; SCDs/subcu Lovenox CODE STATUS; full code
[2021-11-18] MEDS: PANTOPRAZOLE 40 MG TABLET PO SCH (17:24)
[2021-11-18] MEDS: SUCRALFATE 1 GM TAB PO SCH ×2 (17:24→19:07)
[2021-11-18] MEDS ORDERED: ACETAMINOPHEN SUPPOSITORY 650 MG SUPP RECTAL PRN (17:25)
[2021-11-18] MEDS ORDERED: Magnesium Replacement Protocol 1 EACH MISC MISCELLANE PRN (17:25)
[2021-11-18] MEDS ORDERED: THIAMINE 100 MG TAB PO SCH (17:30)
[2021-11-18] MEDS: MAGNESIUM SULFATE-D5W PMX 1 GM in DEXTROSE/WATER 1 100ML.BAG IVPB SCH ×3 (17:53→21:08)
[2021-11-18] MEDS: AMPICILLIN-SULBACTAM 3 GM in SODIUM CHLORIDE 0.9% 100 ML IVPB SCH (19:06)
[2021-11-18] MEDS: SYMBICORT 160-4.5 MCG INHALER INHALATION SCH (20:41)
[2021-11-18] MEDS: MAGNESIUM OXIDE 400 MG TAB PO SCH (21:08)
[2021-11-19] MEDS: AMPICILLIN-SULBACTAM 3 GM in SODIUM CHLORIDE 0.9% 100 ML IVPB SCH ×5 (00:19→23:43)
[2021-11-19] MEDS: ACETAMINOPHEN TAB 325 MG TAB PO PRN ×3 (02:38→19:04)
[2021-11-19 08:46] LABS: Lactic Acid, Venous 1.3 mmol/L (0.7-2.0)
[2021-11-19] MEDS: PANTOPRAZOLE 40 MG TABLET PO SCH (09:14)
[2021-11-19] MEDS: THIAMINE 100 MG TAB PO SCH ×2 (09:14→17:40)
[2021-11-19 09:15] LABS: African American GFR (CKD) >90 (>60 ml/min/1.73 sqM); Anion Gap 7 mmol/L; Blood Urea Nitrogen 11 mg/dL (9-20); Calcium 7.8 mg/dL (8.4-10.2); Carbon Dioxide 24 mmol/L (22-30); Chloride 94 mmol/L (98-107); Glucose 135 mg/dL (74-99); Magnesium 1.3 mg/dL (1.6-2.3); Non-African American GFR(CKD) >90 (>60 ml/min/1.73 sqM); Potassium 2.9 mmol/L (3.5-5.1); Sodium 125 mmol/L (137-145)
[2021-11-19] MEDS: MAGNESIUM OXIDE 400 MG TAB PO SCH ×3 (09:15→19:04)
[2021-11-19] MEDS: SUCRALFATE 1 GM TAB PO SCH ×4 (09:15→19:04)
[2021-11-19] MEDS: CHOLECALCIFEROL 125 MCG (5000 IU) TABLET PO SCH (09:15)
[2021-11-19] MEDS: SYMBICORT 160-4.5 MCG INHALER INHALATION SCH ×2 (09:50→19:15)
[2021-11-19] MEDS ORDERED: Potassium Replacement Protocol 1 EACH MISC MISCELLANE PRN (10:12)
[2021-11-19] MEDS: POTASSIUM CHLORIDE ER 20 MEQ TAB.ER PO SCH ×3 (10:22→14:16)
[2021-11-19 11:07] LABS: Basophils # (A) 0.03 X 10*3/uL (0.00-0.10); Basophils % (A) 0.1 %; Eosinophils # (A) 0.01 X 10*3/uL (0.04-0.35); Eosinophils % (A) 0 %; HGB 8.1 g/dL (13.0-17.0); Lymphocytes # (A) 0.77 X 10*3/uL (0.90-5.00); Lymphocytes % (A) 3.6 %; MCH 34.2 pg (27.0-32.0); MCHC 33.8 g/dL (32.0-37.0); MCV 101.3 fL (80.0-97.0); Mean Platelet Volume 10.8 fL (9.5-12.2); Monocytes # (A) 1.37 X 10*3/uL (0.20-1.00); Monocytes % (A) 6.3 %; Neutrophils # (A) 19.31 X 10*3/uL (1.80-7.70); Neutrophils % (A) 89.1 %; Platelet Count 280 X 10*3/uL (140-440); RBC 2.37 X 10*6/uL (4.40-5.60); RDW 14.8 % (11.5-14.5); WBC 21.68 X 10*3/uL (4.50-10.00)
[2021-11-19] MEDS ORDERED: VANCOMYCIN IV PER PHARMACY 1 EACH MISC MISCELLANE PRN (19:10)
[2021-11-19] MEDS: VANCOMYCIN 1,500 MG in SODIUM CHLORIDE 0.9% 250 ML IVPB SCH (20:41)
--- NOTE | 2021-11-19 22:01 | US ---
EXAMINATION TYPE: US venous doppler duplex UE LT DATE OF EXAM: 11/19/2021 COMPARISON: NONE CLINICAL HISTORY: worsening swelling/dvt. Inpatient with swelling left upper arm, bandage wrap at lef t elbow, cellulitis; patient stated he fell on left arm; hx of alcohol abuse SIDE PERFORMED: left arm Edema channels are imaged medial left upper and mid arm at patient's area of swelling. Left Arm: Negative for DVT. Negative for superficial vein thrombosis IMPRESSION: No evidence of deep vein thrombosis in the left arm. There is subcutaneous edema.
[2021-11-19] MEDS ORDERED: RX INFO: IV CONTRAST WAS GIVEN 1 EACH MISC MISCELLANE PRN (23:49)
--- NOTE | 2021-11-19 23:57 | P.CONS ---
History of Present Illness - Reason for Consult Consult date: 11/19/21 Sepsis/leukocytosis Requesting physician: Chuck Reyna - Chief Complaint Weakness and left upper arm pain x one day - History of Present Illness Patient is a 56-year-old male who was brought into the ER by EMS for evaluation of possible alcoholic withdrawal in this patient apparently was in alf for 2 weeks and was just released this morning, patient on presentation hospital did have a fever of 101F, patient did have elevated white count 25,000 patient UA was negative urine was positive for benzo and cannabis, patient did have a normal chest x-ray, patient denies having any headache or URI symptom, patient denies having any chest pain or shortness with very minimal cough no nausea no vomiting no abdominal pain no diarrhea patient did have a injury to the left upper arm and apparently the patient did have a fall a few days ago patient did have the leaking pain to the left upper arm intensity 5-6 out of 10 and no radiation did have some diffuse swelling redness but no drainage, patient did have a Doppler ultrasound ordered and currently pending to 6 was negative for acute infiltrate patient was started on Unasyn and infectious disease was consulted for further management of antibiotic therapy Review of Systems Positive point has been mentioned in the HPI rest of the systems are negative Past Medical History Past Medical History: COPD, GERD/Reflux, Pneumonia, Seizure Disorder, Syncope Additional Past Medical History / Comment(s): 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 Severe ETOH abuse. Hx alcohol withdrawal seizures/DTs, 1 yr ago, aspiration pneumonia, encephalopathy d/t alcohol, falls, thrombocytopenia, chronic SOB. History of Any Multi-Drug Resistant Organisms: None Reported Past Surgical History: Ear Surgery, Tonsillectomy Additional Past Surgical History / Comment(s): Bilateral mastoidectomies, sinus surgery and vocal cord scraping, cataract surgery, blocks for migraines. Past Anesthesia/Blood Transfusion Reactions: Motion Sickness Past Psychological History: Anxiety, Bipolar, Depression Additional Psychological History / Comment(s): Pt lives with his girlfriend. He uses no assistive device. He does not have a license d/t DUIs. 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 Smoking Status: Current every day smoker Past Alcohol Use History: Daily, Heavy Additional Past Alcohol Use History / Comment(s): Pt started smoking in 1979 and is a ppd smoker. Drinks 1 pint daily. Past Drug Use History: Marijuana Additional Drug Use History / Comment(s): Smokes marijuana approximately once a day. - Past Family History Father Family Medical History: Cancer Mother Family Medical History: Hyperlipidemia Brother(s) Additional Family Medical History / Comment(s): Bipolar, schizoprenia. Medications and Allergies Home Medications Medication Instructions Recorded Confirmed Type Omeprazole [PriLOSEC] 20 mg PO BID 12/02/19 11/18/21 History Cholecalciferol [Vitamin D3 (25 125 mcg PO DAILY 05/30/21 11/18/21 History Mcg = 1000 Iu)] Albuterol Sulfate [Proair Hfa] 1 - 2 puff INHALATION RT-Q6H PRN 08/16/21 11/18/21 History Metoclopramide [Reglan] 10 mg PO HS PRN 08/16/21 11/18/21 History Ondansetron [Zofran] 4 mg PO Q8HR PRN 08/16/21 11/18/21 History Sucralfate [Carafate] 1 gm PO ACHS 08/16/21 11/18/21 History busPIRone HCL 5 mg PO TID PRN 08/16/21 11/18/21 History traZODone HCL 50 - 100 mg PO HS PRN 08/16/21 11/18/21 History Albuterol Nebulized [Ventolin 2.5 mg INHALATION RT-QID PRN 10/25/21 11/18/21 History Nebulized] Budesonide/Formoterol Fumarate 2 puff INHALATION RT-BID 10/25/21 11/18/21 History [Symbicort 160-4.5 Mcg Inhaler] Famotidine [Pepcid] 20 mg PO DAILY 10/25/21 11/18/21 History Hydrocortisone Cream 1 applic TOPICAL QID PRN 10/25/21 11/18/21 History [Hydrocortisone 2.5% Cream] Ibuprofen [Motrin] 800 mg PO QID PRN 10/25/21 11/18/21 History Meclizine HCl 25 mg PO BID PRN 10/25/21 11/18/21 History LORazepam [Ativan] 1 mg PO Q8HR PRN #6 tab 11/01/21 11/18/21 Rx Magnesium Oxide [Mag-Ox] 400 mg PO TID 30 Days #90 tablet 11/01/21 11/18/21 Rx Thiamine [Vitamin B-1] 100 mg PO BID-W/MEALS 30 Days #60 11/01/21 11/18/21 Rx tab guaiFENesin [Mucinex] 600 mg PO Q12HR PRN 11/18/21 11/18/21 History Allergies Allergy/AdvReac Type Severity Reaction Status Date / Time No Known Allergies Allergy Verified 11/18/21 13:19 Physical Exam Vitals: Vital Signs Temp Pulse Resp BP Pulse Ox 11/19/21 15:08 99.0 F 112 H 18 157/91 100 11/19/21 10:00 101.0 F H 114 H 18 109/69 99 11/19/21 02:20 99.6 F 120 H 19 128/77 99 11/18/21 20:00 102 H 18 11/18/21 19:19 98.5 F 102 H 106/69 98 Intake and Output 11/19/21 11/19/21 11/19/21 06:59 14:59 22:59 Intake Total 560 Output Total 250 600 Balance -250 -600 560 Intake: Intake, IV Titration 560 Amount Ampicillin-Sulbactam 3 gm 200 In Sodium Chloride 0.9% 100 ml @ 200 mls/hr IVPB Q6HR [facility] Rx#:[id number] Sodium Chloride 0.9% 1, 360 000 ml @ 130 mls/hr IV . Q7H42M [facility] Rx#:[id number] Output: Urine 250 600 Other: # Voids 3 1 # Bowel Movements 1 1 GENERAL DESCRIPTION: Middle-aged male lying in bed, no distress. No tachypnea or accessory muscle of respiration use. HEENT: Shows Pallor , no scleral icterus. Oral mucous membrane is dry. No pharyngeal erythema or thrush NECK: Trachea central, no thyromegaly. LUNGS: Unlabored breathing. Clear to auscultation anteriorly. No wheeze or crackle. HEART: S1, S2, regular rate and rhythm. No loud murmur ABDOMEN: Soft, no tenderness , guarding or rigidity, no organomegaly EXTREMITIES: Left upper extremity did have a diffuse swelling redness just above the elbow area with some dry crusting no drainage SKIN: No rash, no masses palpable. NEUROLOGICAL: The patient is awake, alert, oriented x3, mood and affect normal. Results CBC & Chem 7: 11/19/21 08:14 11/19/21 08:14 Labs: Abnormal Lab Results - Last 24 Hours (Table) 11/19/21 11/19/21 Range/Units 08:14 08:14 WBC 21.68 H (4.50-10.00) X 10*3/uL RBC 2.37 L (4.40-5.60) X 10*6/uL Hgb 8.1 L (13.0-17.0) g/dL Hct 24.0 L (39.6-50.0) % MCV 101.3 H (80.0-97.0) fL MCH 34.2 H (27.0-32.0) pg RDW 14.8 H (11.5-14.5) % Immature Gran # 0.19 H (0.00-0.04) X 10*3/uL Neutrophils # 19.31 H (1.80-7.70) X 10*3/uL Lymphocytes # 0.77 L (0.90-5.00) X 10*3/uL Monocytes # 1.37 H (0.20-1.00) X 10*3/uL Eosinophils # 0.01 L (0.04-0.35) X 10*3/uL Sodium 125 L (137-145) mmol/L Potassium 2.9 L (3.5-5.1) mmol/L Chloride 94 L (98-107) mmol/L Creatinine 0.45 L (0.66-1.25) mg/dL Glucose 135 H (74-99) mg/dL Calcium 7.8 L (8.4-10.2) mg/dL Magnesium 1.3 L (1.6-2.3) mg/dL C-Reactive Protein 32.0 H (<1.0) mg/dL Microbiology - Last 24 Hours (Table) 11/18/21 11:55 Blood Culture - Preliminary Blood No Growth after 24 hours 11/18/21 12:11 Blood Culture - Preliminary Blood No Growth after 24 hours Assessment and Plan Assessment: Patient presented to the hospital with sepsis in this patient did have a fever tachycardia and elevated white count source is likely left upper extremity cellulitis in this patient with possibly fall and traumatic laceration the patient is getting released from the detention related to cover for MRSA to be the likely pathogen (1) Cellulitis of arm, left Current Visit: Yes Status: Acute Code(s): L03.114 - CELLULITIS OF LEFT UPPER LIMB SNOMED Code(s): 991670814 (2) Sepsis Current Visit: Yes Status: Acute Code(s): A41.9 - SEPSIS, UNSPECIFIED ORGANISM SNOMED Code(s): 06061954 Plan: 1-we will await Doppler Ultrasound to be completed if negative we will obtain a CT of the left upper extremity 2-we'll add vancomycin pharmacy to dose on watching his kidney function closely 3-blood cultures 2 We will follow on clinical condition and cultures to further adjust medication if needed Thank you for this consultation will follow this patient with you Time with Patient: Greater than 30
[2021-11-20] MEDS: VANCOMYCIN 1,500 MG in SODIUM CHLORIDE 0.9% 250 ML IVPB SCH ×3 (04:00→20:10)
[2021-11-20] MEDS: ACETAMINOPHEN TAB 325 MG TAB PO PRN ×3 (05:08→20:09)
[2021-11-20] MEDS: AMPICILLIN-SULBACTAM 3 GM in SODIUM CHLORIDE 0.9% 100 ML IVPB SCH ×4 (06:21→23:42)
--- NOTE | 2021-11-20 07:51 | CT ---
EXAM: CT Left Upper Extremity With Intravenous Contrast CLINICAL HISTORY: ITS.REASON CT Reason: Abscess TECHNIQUE: Axial computed tomography images of the left upper extremity with intravenous contrast. CTDI is 8.5 mGy and DLP is 559.5 mGy-cm. This CT exam was performed using one or more of the following dose reduction techniques: automated exposure control, adjustment of the mA and/or kV according to patient size, and/or use of iterative reconstruction technique. COMPARISON: No previous studies. FINDINGS: Bones/joints: The left clavicle is unremarkable. High riding left humeral head. Possibility of the rotator cuff tendon tear is raised. All fractures of posterior lateral mid lower left ribs with callus formation. Proximal radius and ulna are unremarkable. If there is concern for etiology such as early osteomyelitis, MRI imaging should be performed for follow-up. No dislocation. Soft tissues: There is extensive and diffuse subcutaneous swelling and haziness which begins at the level of the mid left humerus and extends caudally around the elbow joint and the forearm most compatible with severe cellulitis. Lungs: COPD. Other findings: No discrete abscess collection however is noted. IMPRESSION: 1. Subcutaneous haziness and swelling about the mid to distal left humerus compatible with cellulitis extending to the elbow joint and the forearm without discrete abscess collection. 2. If there is concern for etiology such as early osteomyelitis, MRI imaging should be performed. 3. High riding left humeral head raising concern for possible rotator cuff tendon tear.
[2021-11-20] MEDS: SYMBICORT 160-4.5 MCG INHALER INHALATION SCH ×2 (08:29→18:49)
[2021-11-20] MEDS: THIAMINE 100 MG TAB PO SCH ×2 (08:32→17:47)
[2021-11-20] MEDS: MAGNESIUM OXIDE 400 MG TAB PO SCH ×3 (08:32→20:10)
[2021-11-20] MEDS: SUCRALFATE 1 GM TAB PO SCH ×4 (08:32→20:10)
[2021-11-20] MEDS: CHOLECALCIFEROL 125 MCG (5000 IU) TABLET PO SCH (08:32)
[2021-11-20] MEDS: PANTOPRAZOLE 40 MG TABLET PO SCH (08:32)
--- NOTE | 2021-11-20 16:41 | P.PN ---
Subjective Progress Note Date: 11/19/21 Principal diagnosis: Leukocytosis/sepsis Extensive cellulitis left arm EtOH abuse/withdrawal 56-year-old male who presents to the emergency department via EMS. EMS is reported is that the patient may be withdrawing from alcohol however they state he just got out of long term half an hour prior to them calling us. Patient himself states he did have a couple of drinks since he got out of long term but he denies any drug use. But he is a very poor historian secondary to him being so lethargic and only staying awake while being physically stimulated to stay awake. Patient states he was in long term for 4 days however EMS stated he was in long term per family for 2 weeks. Patient does not complain of any pain patient denies headache patient denies any injury patient denies any chest pain difficulty breathing first breath per patient denies abdominal pain patient denies any nausea vomiting diarrhea patient denies any recent fever chills or cough. EKG shows sinus tachycardia with occasional PVC at 111 bpm OR interval 246 dresses 88 QT interval 344 QTC is 467. Patient's EKG shows no ST segment elevation or depression. Chest x-ray shows no acute abnormality. CT of the brain shows no acute abnormality. At 1:15 the patient developed a fever for 100.5. Patient was given a total of 2 and half liters of fluid. Patient had 2 g of Rocephin given. Patient has no obvious source of infection however the right arm is a little bit red and swollen and he will be diagnosed initially with cellulitis of the left arm Extending swelling and erythema of left arm; some induration and tenderness is present; we will order venous Doppler left arm to rule out DVT Objective - Vital Signs Vital signs: Vital Signs Temp 101.0 F H 11/19/21 10:00 Pulse 114 H 11/19/21 10:00 Resp 18 11/19/21 10:00 BP 109/69 11/19/21 10:00 Pulse Ox 99 11/19/21 10:00 Intake & Output 11/18/21 11/19/21 11/19/21 18:59 06:59 18:59 Output Total 250 600 Balance -250 -600 Weight 79.379 kg Output: Urine 250 600 Other: Voiding Method Toilet Urinal # Voids 0 3 # Bowel Movements 1 - Exam General appearance: Present: average body habitus, cooperative, no acute distress Eyes: Present: anicteric sclerae, EOMI, PERRLA, normal appearance ENT: Present: hearing grossly normal, normal oropharynx Neck: Present: normal ROM. Absent: lymphadenopathy, rigidity, thyromegaly Carotids: negative: bruit present Respiratory: bilateral: CTA, negative: rales, rhonchi, wheezing Cardiovascular; Rhythm: regular; normal: S1, S2 Abnormal Heart Sounds: Absent: systolic murmur, diastolic murmur Gastrointestinal: Present: normal bowel sounds, soft. Absent: distended, organomegaly, tenderness Genitourinary Comment(s): deferred Integumentary: Multiple healing abrasions present on both arms and legs with some erythema induration and swelling of left arm Neurologic: Present: CNII-XII intact. Absent: focal deficits Musculoskeletal: Present: gait normal, strength equal bilaterally Psychiatric: Present: A&O x's 3, appropriate affect, intact judgment & insight - Labs CBC & Chem 7: 11/19/21 08:14 11/20/21 11:21 Labs: Abnormal Lab Results - Last 24 Hours (Table) 11/19/21 11/19/21 Range/Units 08:14 08:14 WBC 21.68 H (4.50-10.00) X 10*3/uL RBC 2.37 L (4.40-5.60) X 10*6/uL Hgb 8.1 L (13.0-17.0) g/dL Hct 24.0 L (39.6-50.0) % MCV 101.3 H (80.0-97.0) fL MCH 34.2 H (27.0-32.0) pg RDW 14.8 H (11.5-14.5) % Immature Gran # 0.19 H (0.00-0.04) X 10*3/uL Neutrophils # 19.31 H (1.80-7.70) X 10*3/uL Lymphocytes # 0.77 L (0.90-5.00) X 10*3/uL Monocytes # 1.37 H (0.20-1.00) X 10*3/uL Eosinophils # 0.01 L (0.04-0.35) X 10*3/uL Sodium 125 L (137-145) mmol/L Potassium 2.9 L (3.5-5.1) mmol/L Chloride 94 L (98-107) mmol/L Creatinine 0.45 L (0.66-1.25) mg/dL Glucose 135 H (74-99) mg/dL Calcium 7.8 L (8.4-10.2) mg/dL Magnesium 1.3 L (1.6-2.3) mg/dL C-Reactive Protein 32.0 H (<1.0) mg/dL Assessment and Plan Assessment: 1. Leukocytosis/sepsis - Patient has been placed on Unasyn 3 g IV every 6 hours; we will monitor blood cultures and urine culture; monitor CBC, CMP and pro-calcitonin; consult ID 2. Cellulitis, left arm; IV Unasyn as indicated above 3. Chronic EtOH use/possible withdrawal; rule out EtOH withdrawal seizures; patient will be placed on CIWA protocol with Ativan 4. COPD/asthma; not in exacerbation; we will continue with home inhaler therapy in form of amantadine nebulizer treatments 4 times a day and albuterol inhaler every 6 hours when necessary; continue with Symbicort inhaler twice a day 5. Gastroesophageal reflux disease; continue with home dose of Protonix DVT prophylaxis; SCDs/subcu Lovenox CODE STATUS; full code
--- NOTE | 2021-11-20 16:47 | P.PN ---
Subjective Progress Note Date: 11/20/21 Principal diagnosis: Leukocytosis/sepsis Extensive cellulitis left arm EtOH abuse/withdrawal 56-year-old male who presents to the emergency department via EMS. EMS is reported is that the patient may be withdrawing from alcohol however they state he just got out of [facility] half an hour prior to them calling us. Patient himself states he did have a couple of drinks since he got out of [facility] but he denies any drug use. But he is a very poor historian secondary to him being so lethargic and only staying awake while being physically stimulated to stay awake. Patient states he was in [facility] for 4 days however EMS stated he was in [facility] per family for 2 weeks. Patient does not complain of any pain patient denies headache patient denies any injury patient denies any chest pain difficulty breathing first breath per patient denies abdominal pain patient denies any nausea vomiting diarrhea patient denies any recent fever chills or cough. EKG shows sinus tachycardia with occasional PVC at 111 bpm [place] interval 246 dresses 88 QT interval 344 QTC is 467. Patient's EKG shows no ST segment elevation or depression. Chest x-ray shows no acute abnormality. CT of the brain shows no acute abnormality. At 1:15 the patient developed a fever for 100.5. Patient was given a total of 2 and half liters of fluid. Patient had 2 g of Rocephin given. Patient has no obvious source of infection however the right arm is a little bit red and swollen and he will be diagnosed initially with cellulitis of the left arm Extending swelling and erythema of left arm; some induration and tenderness is present; we will order venous Doppler left arm to rule out DVT 11/20/2021 Patient is seen and evaluated in room at bedside; somewhat shaky and anxious Vital signs are reviewed and reveal temperature of 98.1, pulse 109, respiration 18 and blood pressure 119/76, saturation of 98% on room air Patient remains on IV Unasyn 3 g every 6 hours; ID on board and recommending to continue with upper extremity ultrasound with plans to order CT of the arm if ultrasound is negative for DVT; vancomycin is admitted with pharmacy dosing service Workup reviewed and reveals left upper extremity venous Doppler negative for DVT; does reveal subcutaneous CT of the arm reveals subcutaneous swelling compatible with cellulitis; no discrete abscess collection We will continue with IV Unasyn and vancomycin; monitor CBC, CRP and pro- calcitonin; await further recommendations from ID Objective - Vital Signs Vital signs: Vital Signs Temp 98.1 F 11/20/21 14:00 Pulse 109 H 11/20/21 14:00 Resp 18 11/20/21 14:00 BP 119/76 11/20/21 14:00 Pulse Ox 98 11/20/21 14:00 Intake & Output 11/19/21 11/20/21 11/20/21 18:59 06:59 18:59 Intake Total 560 Output Total 600 Balance -40 Intake: Intake, IV Titration 560 Amount Ampicillin-Sulbactam 3 gm 200 In Sodium Chloride 0.9% 100 ml @ 200 mls/hr IVPB Q6HR HERIBERTO Rx#:[id number] Sodium Chloride 0.9% 1, 360 000 ml @ 130 mls/hr IV . [id number] ONE Rx#:[id number] Output: Urine 600 Other: # Voids 1 2 # Bowel Movements 1 1 - Exam General appearance: Present: average body habitus, cooperative, no acute distress Eyes: Present: anicteric sclerae, EOMI, PERRLA, normal appearance ENT: Present: hearing grossly normal, normal oropharynx Neck: Present: normal ROM. Absent: lymphadenopathy, rigidity, thyromegaly Carotids: negative: bruit present Respiratory: bilateral: CTA, negative: rales, rhonchi, wheezing Cardiovascular; Rhythm: regular; normal: S1, S2 Abnormal Heart Sounds: Absent: systolic murmur, diastolic murmur Gastrointestinal: Present: normal bowel sounds, soft. Absent: distended, organomegaly, tenderness Genitourinary Comment(s): deferred Integumentary: Multiple healing abrasions present on both arms and legs with some erythema induration and swelling of left arm Neurologic: Present: CNII-XII intact. Absent: focal deficits Musculoskeletal: Present: gait normal, strength equal bilaterally Psychiatric: Present: A&O x's 3, appropriate affect, intact judgment & insight - Labs CBC & Chem 7: 11/19/21 08:14 11/20/21 11:21 Labs: Microbiology - Last 24 Hours (Table) 11/18/21 12:11 Blood Culture - Preliminary Blood No Growth after 48 hours 11/18/21 11:55 Blood Culture - Preliminary Blood No Growth after 48 hours Assessment and Plan Assessment: 1. Leukocytosis/sepsis - Patient has been placed on Unasyn 3 g IV every 6 hours; we will monitor blood cultures and urine culture; monitor CBC, CMP and pro-calcitonin; consult ID 2. Cellulitis, left arm; IV Unasyn as indicated above 3. Chronic EtOH use/possible withdrawal; rule out EtOH withdrawal seizures; patient will be placed on CIWA protocol with Ativan 4. COPD/asthma; not in exacerbation; we will continue with home inhaler therapy in form of amantadine nebulizer treatments 4 times a day and albuterol inhaler every 6 hours when necessary; continue with Symbicort inhaler twice a day 5. Gastroesophageal reflux disease; continue with home dose of Protonix DVT prophylaxis; SCDs/subcu Lovenox CODE STATUS; full code
[2021-11-20 17:39] LABS: Basophils % (A) 0 %; Eosinophils # (A) 0.1 k/uL (0-0.7); Eosinophils % (A) 0 %; HCT 25.6 % (39.0-53.0); HGB 8.3 gm/dL (13.0-17.5); Lymphocytes # (A) 1.2 k/uL (1.0-4.8); Lymphocytes % (A) 6 %; MCH 34.5 pg (25.0-35.0); MCHC 32.5 g/dL (31.0-37.0); MCV 106.3 fL (80.0-100.0); Macrocytosis Moderate; Mean Platelet Volume 7.8; Monocytes # (A) 0.9 k/uL (0-1.0); Monocytes % (A) 5 %; Neutrophils # (A) 16.5 k/uL (1.3-7.7); Neutrophils % (A) 87 %; Platelet Count 317 k/uL (150-450); RBC 2.41 m/uL (4.30-5.90); RDW 14.8 % (11.5-15.5); WBC 19.1 k/uL (3.8-10.6)
[2021-11-20 17:42] LABS: African American GFR (CKD) >90 (>60 ml/min/1.73 sqM); Anion Gap 4 mmol/L; Blood Urea Nitrogen 7 mg/dL (9-20); Calcium 7.9 mg/dL (8.4-10.2); Carbon Dioxide 30 mmol/L (22-30); Chloride 94 mmol/L (98-107); Glucose 130 mg/dL (74-99); Non-African American GFR(CKD) >90 (>60 ml/min/1.73 sqM); Potassium 2.9 mmol/L (3.5-5.1); Sodium 128 mmol/L (137-145)
[2021-11-20] MEDS ORDERED: Potassium Replacement Protocol 1 EACH MISC MISCELLANE PRN (17:51)
[2021-11-20] MEDS: POTASSIUM CHLORIDE ER 20 MEQ TAB.ER PO SCH ×3 (18:01→20:09)
--- NOTE | 2021-11-21 00:07 | PN ---
PROGRESS NOTE DATE OF SERVICE: 11/20/2021 REASON FOR FOLLOWUP: Sepsis and left upper extremity cellulitis. INTERVAL HISTORY: Patient overall fever pattern has improved with T-max of 99.1. The patient is breathing comfortably. Denies any chest pain, shortness of breath or cough. No abdominal pain. No worsening pain in the left upper arm area. PHYSICAL EXAMINATION: Blood pressure 103/62 with a pulse of 102, temperature 99.2. He is 98% on room air. General description is a middle-aged male lying in bed in no distress. Respiratory system: Unlabored breathing, clear to auscultation anteriorly. Heart S1, S2. Regular rate and rhythm. Abdomen: Soft, no tenderness. Left upper extremity did have swelling, redness, minimal soft tissue, no drainage. LABS: Hemoglobin is 8.8, white count 19.1, creatinine 0.51. DIAGNOSTIC IMPRESSION AND PLAN: Patient with left upper extremity cellulitis. CT has been negative for any abscess. Local wound care with Santyl followed by moist dressing. Patient to continue with vancomycin and adjust the antibiotic further based on clinical response. Continue supportive care. MMODL / IJN: [id number] /
[2021-11-21] MEDS ORDERED: Potassium Replacement Protocol 1 EACH MISC MISCELLANE PRN (00:56)
[2021-11-21] MEDS: POTASSIUM CHLORIDE ER 20 MEQ TAB.ER PO SCH ×4 (00:59→21:25)
[2021-11-21 03:18] LABS: African American GFR (CKD) >90 (>60 ml/min/1.73 sqM); Non-African American GFR(CKD) >90 (>60 ml/min/1.73 sqM)
[2021-11-21] MEDS: VANCOMYCIN 1,500 MG in SODIUM CHLORIDE 0.9% 250 ML IVPB SCH ×3 (03:58→20:15)
[2021-11-21] MEDS ORDERED: VANCOMYCIN TROUGH DUE 1 EACH MISC MISCELLANE ONE (04:00)
[2021-11-21] MEDS: AMPICILLIN-SULBACTAM 3 GM in SODIUM CHLORIDE 0.9% 100 ML IVPB SCH ×3 (06:07→18:24)
[2021-11-21] MEDS: SYMBICORT 160-4.5 MCG INHALER INHALATION SCH ×3 (07:33→20:48)
[2021-11-21] MEDS: THIAMINE 100 MG TAB PO SCH ×2 (09:02→18:24)
[2021-11-21] MEDS: SUCRALFATE 1 GM TAB PO SCH ×4 (09:02→20:15)
[2021-11-21] MEDS: PANTOPRAZOLE 40 MG TABLET PO SCH (09:02)
[2021-11-21] MEDS: MAGNESIUM OXIDE 400 MG TAB PO SCH ×3 (09:02→21:25)
[2021-11-21] MEDS: CHOLECALCIFEROL 125 MCG (5000 IU) TABLET PO SCH (09:03)
[2021-11-21 10:34] LABS: HCT 23.7 % (39.6-50.0); HGB 7.8 g/dL (13.0-17.0); MCH 33.8 pg (27.0-32.0); MCHC 32.9 g/dL (32.0-37.0); MCV 102.6 fL (80.0-97.0); Mean Platelet Volume 10.4 fL (9.5-12.2); Platelet Count 287 X 10*3/uL (140-440); RBC 2.31 X 10*6/uL (4.40-5.60); RDW 14.8 % (11.5-14.5); WBC 18.01 X 10*3/uL (4.50-10.00)
[2021-11-21 11:31] LABS: Anion Gap 11.8 mmol/L (10.00-18.00); Blood Urea Nitrogen 4.4 mg/dL (9.0-27.0); C Reactive Protein 20.8 mg/dL (0.00-0.80); Calcium 8.2 mg/dL (8.7-10.3); Carbon Dioxide 25.2 mmol/L (20.0-27.5); Non-African American GFR(CKD) 133.7 (60.0-200.0); Potassium 3.5 mmol/L (3.5-5.5)
--- NOTE | 2021-11-21 12:54 | XR ---
EXAMINATION TYPE: XR elbow limited LT DATE OF EXAM: 11/21/2021 CLINICAL HISTORY: pain TECHNIQUE: Frontal, lateral and oblique images of the left elbow are obtained. COMPARISON: None. FINDINGS: There is no acute fracture/dislocation evident of the elbow. No abnormal fat pad signs ar e seen. The overlying soft tissue appears unremarkable. IMPRESSION: There is no acute fracture or dislocation of the elbow. ICD 10 NO FRACTURE, INITIAL EVALUATION
[2021-11-21 13:32] LABS: Basophils # (A) 0.03 X 10*3/uL (0.00-0.10); Basophils % (A) 0.2 %; Eosinophils # (A) 0.13 X 10*3/uL (0.04-0.35); Eosinophils % (A) 0.7 %; Lymphocytes # (A) 1.55 X 10*3/uL (0.90-5.00); Lymphocytes % (A) 8.6 %; Monocytes # (A) 1.61 X 10*3/uL (0.20-1.00); Monocytes % (A) 8.9 %; Neutrophils # (A) 14.55 X 10*3/uL (1.80-7.70); Neutrophils % (A) 80.8 %
[2021-11-21] MEDS: ACETAMINOPHEN TAB 325 MG TAB PO PRN (13:58)
--- NOTE | 2021-11-21 17:29 | PN ---
PROGRESS NOTE DATE OF SERVICE: 11/21/2021 REASON FOR FOLLOWUP: 1. Left upper extremity cellulitis. 2. Necrotic toes. INTERVAL HISTORY: The patient is afebrile. He is breathing comfortably. The patient denies having any chest pain or cough. No worsening pain to the left upper extremity. No abdominal pain or diarrhea. PHYSICAL EXAMINATION: Blood pressure 124/77, pulse of 105, temperature 99.5. He is 95% on room air. General description is a middle-aged male lying in bed in no distress. Respiratory system: Unlabored breathing. Clear to auscultation anteriorly. Heart S1, S2. Regular rate and rhythm. Abdomen soft, no tenderness. Patient noted to have necrotic toes but no drainage. LABS: Blood culture negative. DIAGNOSTIC IMPRESSION AND PLAN: 1. Patient with left upper extremity cellulitis, concern for possible olecranon bursitis. May benefit from orthopedic evaluation. Covered with Unasyn and vancomycin. 2. Necrotic toes. Vascular Surgery has been consulted for further recommendations. MMODL / IJN: [id number] /
[2021-11-22] MEDS: AMPICILLIN-SULBACTAM 3 GM in SODIUM CHLORIDE 0.9% 100 ML IVPB SCH ×4 (00:45→17:05)
[2021-11-22] MEDS: ACETAMINOPHEN TAB 325 MG TAB PO PRN ×2 (03:57→19:14)
[2021-11-22] MEDS: VANCOMYCIN 1,500 MG in SODIUM CHLORIDE 0.9% 250 ML IVPB SCH ×3 (03:57→19:14)
--- NOTE | 2021-11-22 08:46 | P.PN ---
Subjective 56-year-old male who presents to the emergency department via EMS. EMS is reported is that the patient may be withdrawing from alcohol however they state he just got out of care home half an hour prior to them calling us. Patient himself states he did have a couple of drinks since he got out of care home but he denies any drug use. But he is a very poor historian secondary to him being so lethargic and only staying awake while being physically stimulated to stay awake. Patient states he was in care home for 4 days however EMS stated he was in care home per family for 2 weeks. Patient does not complain of any pain patient denies headache patient denies any injury patient denies any chest pain difficulty breathing first breath per patient denies abdominal pain patient denies any nausea vomiting diarrhea patient denies any recent fever chills or cough. EKG shows sinus tachycardia with occasional PVC at 111 bpm [place] interval 246 dresses 88 QT interval 344 QTC is 467. Patient's EKG shows no ST segment elevation or depression. Chest x-ray shows no acute abnormality. CT of the brain shows no acute abnormality. At 1:15 the patient developed a fever for 100.5. Patient was given a total of 2 and half liters of fluid. Patient had 2 g of Rocephin given. Patient has no obvious source of infection however the right arm is a little bit red and swollen and he will be diagnosed initially with cellulitis of the left arm Extending swelling and erythema of left arm; some induration and tenderness is present; we will order venous Doppler left arm to rule out DVT 11/20/2021 Patient is seen and evaluated in room at bedside; somewhat shaky and anxious Vital signs are reviewed and reveal temperature of 98.1, pulse 109, respiration 18 and blood pressure 119/76, saturation of 98% on room air Patient remains on IV Unasyn 3 g every 6 hours; ID on board and recommending to continue with upper extremity ultrasound with plans to order CT of the arm if ultrasound is negative for DVT; vancomycin is admitted with pharmacy dosing service Workup reviewed and reveals left upper extremity venous Doppler negative for DVT; does reveal subcutaneous CT of the arm reveals subcutaneous swelling compatible with cellulitis; no discrete abscess collection We will continue with IV Unasyn and vancomycin; monitor CBC, CRP and pro- calcitonin; await further recommendations from ID Subjective: 11/21/2021 Patients with multiple areas of abrasions and areas of erythema and swelling and tenderness in all 4 extremities, there are multiple healing superficial abrasion with this. There are several black spots especially in the distal extremities and toes. Therefore we called the vascular team consult Patient admitted with extremity cellulitis involving all 4 extremities. Patient also has a history of a smoker 1 pack per day and once nicotine patch. Patient is currently covered with Unasyn and IV vancomycin. Creatinine is normal at 0.4. Patient with leukocytosis to 18,000. Also patient with a fever of 102. procalcitonin is elevated at 3.8. Upper extremities CAT scan showing evidence of cellulitis with no discrete abscess. The patient also with high rising left humerus suspicious for possible rotator cuff tear. Therefore we consulted orthopedic team. Also patient has a pocket of an abscess in the superficial skin on the front of the right ankle joint and dorsum of the right foot. Discussed with staff Niurka estrella old consult to see if we can get culture from this pus area. Nicotine patch is added. Review of systems HEENT: No recent visual problems or hearing problems. Denied any sore throat. CARDIOVASCULAR: No orthopnea, PND, no palpitations, no syncope. PULMONARY: No shortness of breath, no cough, no hemoptysis. GASTROINTESTINAL: No diarrhea, no nausea, no vomiting, no abdominal pain. Normoactive bowel sounds. NEUROLOGICAL: No headaches, no weakness, no numbness. HEMATOLOGICAL: Denies any bleeding or petechiae. GENITOURINARY: Denies any burning micturition, frequency, or urgency. ENDOCRINE: Denies any polyuria or polydipsia. Active Medications Generic Name Dose Route Start Last Admin Trade Name Eleonora PRN Reason Stop Dose Admin Acetaminophen 650 mg 11/18/21 17:25 Acetaminophen Suppository 650 Mg Supp RECTAL Q6HR PRN Fever and/ or Pain Acetaminophen 650 mg 11/19/21 01:55 11/22/21 03:57 Acetaminophen Tab 325 Mg Tab PO 650 mg Q6HR PRN Administration Fever and/ or Pain Albuterol Sulfate 2.5 mg 11/18/21 16:52 Albuterol Nebulized 2.5 Mg/3 Ml INHALATION RT-QID PRN Shortness Of Breath Budesonide/Formoterol Fumarate 2 puff 11/18/21 20:00 11/21/21 20:48 Symbicort 160-4.5 Mcg Inhaler INHALATION Not Given RT-BID HERIBERTO Buspirone HCl 5 mg 11/18/21 16:52 11/19/21 02:38 Buspirone Hcl 5 Mg Tab PO 5 mg TID PRN Administration Anxiety Cholecalciferol 125 mcg 11/19/21 09:00 11/21/21 09:03 Cholecalciferol 125 Mcg (5000 Iu) Tablet PO 125 mcg DAILY HERIBERTO Administration Ampicillin Sodium/Sulbactam 100 mls @ 200 mls/hr 11/18/21 18:00 11/22/21 05:43 Sodium 3 gm/ Sodium Chloride IVPB 200 mls/hr Q6HR HERIBERTO Administration Vancomycin HCl 1,500 mg/ 250 mls @ 125 mls/hr 11/19/21 20:00 11/22/21 03:57 Sodium Chloride IVPB 125 mls/hr Q8H HERIBERTO Administration Sodium Chloride 1,000 mls @ 75 mls/hr 11/22/21 08:30 Saline 0.9% IV .[id number] HERIBERTO Lorazepam 1 mg 11/18/21 16:59 Lorazepam 2 Mg/Ml Inj IV Q2HR PRN CIWA 8 or 9 Lorazepam 1 mg 11/18/21 16:59 Lorazepam 2 Mg/Ml Inj IV Q1HR PRN CIWA 10 to 15 Magnesium Oxide 400 mg 11/18/21 22:00 11/21/21 21:25 Magnesium Oxide 400 Mg Tab PO 400 mg TID HERIBERTO Administration Metoclopramide HCl 10 mg 11/18/21 16:52 Metoclopramide 10 Mg Tab PO HS PRN Nausea Miscellaneous Information 1 each 11/18/21 17:25 Magnesium Replacement Protocol 1 Each Misc MISCELLANE DAILY PRN Per Protocol Protocol Miscellaneous Information 1 each 11/19/21 10:12 Potassium Replacement Protocol 1 Each Misc MISCELLANE DAILY PRN Per Protocol Protocol Miscellaneous Information 1 each 11/20/21 17:51 Potassium Replacement Protocol 1 Each Misc MISCELLANE DAILY PRN Per Protocol Protocol Miscellaneous Information 1 each 11/21/21 00:56 Potassium Replacement Protocol 1 Each Misc MISCELLANE DAILY PRN Per Protocol Protocol Nicotine 1 patch 11/22/21 09:00 Nicotine 21mg/24hr Patch TRANSDERM DAILY HERIBERTO Pantoprazole Sodium 40 mg 11/18/21 17:30 11/21/21 09:02 Pantoprazole 40 Mg Tablet PO 40 mg [id number] HERIBERTO Administration Sucralfate 1 gm 11/18/21 17:30 11/21/21 20:15 Sucralfate 1 Gm Tab PO 1 gm ACHS HERIBERTO Administration Thiamine HCl 100 mg 11/19/21 07:30 11/21/21 18:24 Thiamine 100 Mg Tab PO 100 mg BID-W/MEALS HERIBERTO Administration Trazodone HCl 50 mg 11/18/21 16:52 Trazodone Hcl 50 Mg Tab PO HS PRN Insomnia Objective - Vital Signs Vital signs: Vital Signs Temp 99.5 F 11/21/21 07:32 Pulse 105 H 11/21/21 07:32 Resp 18 11/21/21 07:32 BP 124/77 11/21/21 07:32 Pulse Ox 95 11/21/21 07:32 Intake & Output 11/20/21 11/21/21 11/21/21 18:59 06:59 18:59 Output Total 600 1000 Balance -600 -1000 Output: Urine 600 1000 Other: Voiding Method Toilet Urinal # Voids 3 2 # Bowel Movements 1 - Exam GENERAL: The patient is alert and oriented x3, not in any acute distress. Well developed, well nourished. HEENT: Pupils are round and equally reacting to light. EOMI. No scleral icterus. No conjunctival pallor. Normocephalic, atraumatic. No pharyngeal erythema. No thyromegaly. CARDIOVASCULAR: S1 and S2 present. No murmurs, rubs, or gallops. PULMONARY: Chest is clear to auscultation, no wheezing or crackles. ABDOMEN: Soft, nontender, nondistended, normoactive bowel sounds. No palpable organomegaly. MUSCULOSKELETAL: No joint swelling or deformity. EXTREMITIES: No cyanosis, clubbing, or pedal edema. NEUROLOGICAL: Gross neurological examination did not reveal any focal deficits. -SKIN: No rashes. no petechiae. Erythema, swelling and tenderness with multiple areas of superficial abrasions with healing IN all 4 extremities. There is blackish discoloration on the dorsum of THE medial 2-3 toes on both sides. There is some superficial purulent pocket on the dorsum of the right foot and ankle area. There is a swelling around the left elbow area. - Labs CBC & Chem 7: 11/21/21 06:41 11/21/21 06:41 Labs: Abnormal Lab Results - Last 24 Hours (Table) 11/20/21 11/20/21 11/20/21 Range/Units 17:06 17:06 22:41 WBC 19.1 H (3.8-10.6) k/uL RBC 2.41 L (4.30-5.90) m/uL Hgb 8.3 L (13.0-17.5) gm/dL Hct 25.6 L (39.0-53.0) % MCV 106.3 H (80.0-100.0) fL MCH (27.0-32.0) pg RDW (11.5-14.5) % Neutrophils # 16.5 H (1.3-7.7) k/uL Sodium 128 L (137-145) mmol/L Potassium 2.9 L 3.0 L (3.5-5.1) mmol/L Chloride 94 L (98-107) mmol/L BUN 7 L (9-20) mg/dL Creatinine 0.51 L (0.66-1.25) mg/dL BUN/Creatinine Ratio (12.00-20.00) Ratio Glucose 130 H (74-99) mg/dL Calcium 7.9 L (8.4-10.2) mg/dL C-Reactive Protein (0.00-0.80) mg/dL Procalcitonin (0.02-0.09) ng/mL 11/21/21 11/21/21 11/21/21 Range/Units 02:50 06:41 06:41 WBC (3.8-10.6) k/uL RBC (4.30-5.90) m/uL Hgb (13.0-17.5) gm/dL Hct (39.0-53.0) % MCV (80.0-100.0) fL MCH (27.0-32.0) pg RDW (11.5-14.5) % Neutrophils # (1.3-7.7) k/uL Sodium 134 L (137-145) mmol/L Potassium (3.5-5.1) mmol/L Chloride (98-107) mmol/L BUN 4.4 L (9-20) mg/dL Creatinine 0.38 L 0.4 L (0.66-1.25) mg/dL BUN/Creatinine Ratio 11.00 L (12.00-20.00) Ratio Glucose (74-99) mg/dL Calcium 8.2 L (8.4-10.2) mg/dL C-Reactive Protein 20.80 H (0.00-0.80) mg/dL Procalcitonin 3.87 H (0.02-0.09) ng/mL 11/21/21 Range/Units 06:41 WBC 18.01 H (3.8-10.6) k/uL RBC 2.31 L (4.30-5.90) m/uL Hgb 7.8 L (13.0-17.5) gm/dL Hct 23.7 L (39.0-53.0) % MCV 102.6 H (80.0-100.0) fL MCH 33.8 H (27.0-32.0) pg RDW 14.8 H (11.5-14.5) % Neutrophils # (1.3-7.7) k/uL Sodium (137-145) mmol/L Potassium (3.5-5.1) mmol/L Chloride (98-107) mmol/L BUN (9-20) mg/dL Creatinine (0.66-1.25) mg/dL BUN/Creatinine Ratio (12.00-20.00) Ratio Glucose (74-99) mg/dL Calcium (8.4-10.2) mg/dL C-Reactive Protein (0.00-0.80) mg/dL Procalcitonin (0.02-0.09) ng/mL Microbiology - Last 24 Hours (Table) 11/18/21 12:11 Blood Culture - Preliminary Blood No Growth after 48 hours 11/18/21 11:55 Blood Culture - Preliminary Blood No Growth after 48 hours Assessment and Plan Assessment: All 4 extremities areas with superficial healing abrasions and cellulitis with blackish discoloration of the areas of the toes. small superficial abscess of the right foot Sepsis with fever and leukocytosis secondary to above Possible left rotator cuff tear Nicotine dependence Alcohol abuse History of COPD/asthma, not an active issue History of seizure not on a AED History of Anxiety and depression, not an active issue Plan: This is a pleasant 56 years old male who presents with sepsis and cellulitis of all 4 extremities Continue with antibiotics per infectious disease team. Currently is on IV vanco mycin and Unasyn Start normal saline at 75 mL/h Try to send wound culture from superficial right foot abscess, consult wound care. Consult vascular surgery for patient is heavy smoker with blackish discoloration of areas in the distal toes. Rule out peripheral vascular disease Consults orthopedic team for possible left rotator cuff tear Continue with CIWA protocol and thiamine. Nicotine patch Labs and medication were reviewed.. Continue same treatment. Continue with symptomatic treatment. Resume home medication. Monitor lytes and vitals. DVT and GI prophylaxis. Further recommendations as per clinical course of the patient DVT prophylaxis: Subcutaneous heparin GI Prophylaxis: Ppi PT/OT: Ordered and Pending Prognosis is guarded
[2021-11-22] MEDS: SYMBICORT 160-4.5 MCG INHALER INHALATION SCH ×2 (08:49→20:06)
[2021-11-22] MEDS: ALBUTEROL NEBULIZED 2.5 MG/3 ML INHALATION PRN ×2 (08:49→15:48)
[2021-11-22] MEDS: THIAMINE 100 MG TAB PO SCH ×2 (09:04→16:32)
[2021-11-22] MEDS: HEPARIN SODIUM,PORCINE/PF 5,000 UNIT/0.5 ML SYRINGE SQ SCH ×2 (09:04→21:37)
[2021-11-22] MEDS: SUCRALFATE 1 GM TAB PO SCH ×4 (09:04→21:37)
[2021-11-22] MEDS: PANTOPRAZOLE 40 MG TABLET PO SCH (09:04)
[2021-11-22] MEDS: MAGNESIUM OXIDE 400 MG TAB PO SCH ×3 (09:05→21:38)
[2021-11-22] MEDS: NICOTINE 21MG/24HR PATCH TRANSDERM SCH (09:05)
[2021-11-22] MEDS: CHOLECALCIFEROL 125 MCG (5000 IU) TABLET PO SCH (09:05)
[2021-11-22] MEDS: SODIUM CHLORIDE 0.9% 1,000 ML IV SCH ×2 (09:05→21:38)
--- NOTE | 2021-11-22 10:33 | P.GSCN ---
History of Present Illness Consult date: 11/22/21 History of present illness: Rojas is a 56-year-old male with a history of alcohol abuse who apparently was previous angina 2 weeks and just released on the he came to the hospital with a fever no sign of elevated white count and a positive urine drug test. He has areas of injury to his bilateral upper extremity exam lower extremities and states he does take a few stumbles on occasion. He had increasing pain in his left arm at the elbow. 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 Severe ETOH abuse. Hx alcohol withdrawal seizures/DTs, 1 yr ago, aspiration pneumonia, encephalopathy d/t alcohol, falls, thrombocytopenia, chronic SOB. History of Any Multi-Drug Resistant Organisms: None Reported Past Surgical History: Ear Surgery, Tonsillectomy Additional Past Surgical History / Comment(s): Bilateral mastoidectomies, sinus surgery and vocal cord scraping, cataract surgery, blocks for migraines. Past Anesthesia/Blood Transfusion Reactions: Motion Sickness Past Psychological History: Anxiety, Bipolar, Depression Additional Psychological History / Comment(s): Pt lives with his girlfriend. He uses no assistive device. He does not have a license d/t [employer]. 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 Smoking Status: Current every day smoker Past Alcohol Use History: Daily, Heavy Additional Past Alcohol Use History / Comment(s): Pt started smoking in 1979 and is a ppd smoker. Drinks 1 pint daily. Past Drug Use History: Marijuana Additional Drug Use History / Comment(s): Smokes marijuana approximately once a day. - Past Family History Father Family Medical History: Cancer Mother Family Medical History: Hyperlipidemia Brother(s) Additional Family Medical History / Comment(s): Bipolar, schizoprenia. Medications and Allergies Home Medications Medication Instructions Recorded Confirmed Type Omeprazole [PriLOSEC] 20 mg PO BID 12/02/19 11/18/21 History Cholecalciferol [Vitamin D3 (25 125 mcg PO DAILY 05/30/21 11/18/21 History Mcg = 1000 Iu)] Albuterol Sulfate [Proair Hfa] 1 - 2 puff INHALATION RT-Q6H PRN 08/16/21 11/18/21 History Metoclopramide [Reglan] 10 mg PO HS PRN 08/16/21 11/18/21 History Ondansetron [Zofran] 4 mg PO Q8HR PRN 08/16/21 11/18/21 History Sucralfate [Carafate] 1 gm PO ACHS 08/16/21 11/18/21 History busPIRone HCL 5 mg PO TID PRN 08/16/21 11/18/21 History traZODone HCL 50 - 100 mg PO HS PRN 08/16/21 11/18/21 History Albuterol Nebulized [Ventolin 2.5 mg INHALATION RT-QID PRN 10/25/21 11/18/21 History Nebulized] Budesonide/Formoterol Fumarate 2 puff INHALATION RT-BID 10/25/21 11/18/21 History [Symbicort 160-4.5 Mcg Inhaler] Famotidine [Pepcid] 20 mg PO DAILY 10/25/21 11/18/21 History Hydrocortisone Cream 1 applic TOPICAL QID PRN 10/25/21 11/18/21 History [Hydrocortisone 2.5% Cream] Ibuprofen [Motrin] 800 mg PO QID PRN 10/25/21 11/18/21 History Meclizine HCl 25 mg PO BID PRN 10/25/21 11/18/21 History LORazepam [Ativan] 1 mg PO Q8HR PRN #6 tab 11/01/21 11/18/21 Rx Magnesium Oxide [Mag-Ox] 400 mg PO TID 30 Days #90 tablet 11/01/21 11/18/21 Rx Thiamine [Vitamin B-1] 100 mg PO BID-W/MEALS 30 Days #60 11/01/21 11/18/21 Rx tab guaiFENesin [Mucinex] 600 mg PO Q12HR PRN 11/18/21 11/18/21 History Allergies Allergy/AdvReac Type Severity Reaction Status Date / Time No Known Allergies Allergy Verified 11/18/21 13:19 Surgical - Exam Vital Signs Temp Pulse Resp BP Pulse Ox 99.1 F 118 H 18 128/84 96 11/18/21 09:52 11/18/21 09:52 11/18/21 09:52 11/18/21 09:52 11/18/21 09:52 Gen. is a pleasant cooperative male in no acute distress. HEENT is normocephalic, atraumatic, excellent motion intact. Heart appears regular in rate and rhythm at this time. Lungs are clear bilaterally. Abdomen soft, nontender nondistended. Extremity show no clubbing or cyanosis. Multiple areas of eschar throughout the bilateral upper and lower extremities. He has strongly palpable radial, femoral, dorsalis pedis and posterior tibial pulses bilaterally. The left elbow is edematous and erythematous with weeping Results - Labs 11/21/21 06:41 11/21/21 06:41 Abnormal Lab Results - Last 24 Hours (Table) 11/21/21 11/21/21 11/21/21 Range/Units 06:41 06:41 06:41 WBC 18.01 H (4.50-10.00) X 10*3/uL RBC 2.31 L (4.40-5.60) X 10*6/uL Hgb 7.8 L (13.0-17.0) g/dL Hct 23.7 L (39.6-50.0) % MCV 102.6 H (80.0-97.0) fL MCH 33.8 H (27.0-32.0) pg RDW 14.8 H (11.5-14.5) % Immature Gran # 0.14 H (0.00-0.04) X 10*3/uL Neutrophils # 14.55 H (1.80-7.70) X 10*3/uL Monocytes # 1.61 H (0.20-1.00) X 10*3/uL Sodium 134 L (135-145) mmol/L BUN 4.4 L (9.0-27.0) mg/dL Creatinine 0.4 L (0.6-1.5) mg/dL BUN/Creatinine Ratio 11.00 L (12.00-20.00) Ratio Calcium 8.2 L (8.7-10.3) mg/dL C-Reactive Protein 20.80 H (0.00-0.80) mg/dL Procalcitonin 3.87 H (0.02-0.09) ng/mL Microbiology - Last 24 Hours (Table) 11/18/21 11:55 Blood Culture - Preliminary Blood No Growth after 72 hours 11/18/21 12:11 Blood Culture - Preliminary Blood No Growth after 72 hours Diabetes panel 11/21/21 Range/Units 06:41 Sodium 134 L (135-145) mmol/L Potassium 3.5 (3.5-5.5) mmol/L Chloride 97 (96-109) mmol/L Carbon Dioxide 25.2 (20.0-27.5) mmol/L BUN 4.4 L (9.0-27.0) mg/dL Creatinine 0.4 L (0.6-1.5) mg/dL Glucose 100 (70-110) mg/dL Calcium 8.2 L (8.7-10.3) mg/dL Calcium panel 11/21/21 Range/Units 06:41 Calcium 8.2 L (8.7-10.3) mg/dL Pituitary panel 11/21/21 Range/Units 06:41 Sodium 134 L (135-145) mmol/L Potassium 3.5 (3.5-5.5) mmol/L Chloride 97 (96-109) mmol/L Carbon Dioxide 25.2 (20.0-27.5) mmol/L BUN 4.4 L (9.0-27.0) mg/dL Creatinine 0.4 L (0.6-1.5) mg/dL Glucose 100 (70-110) mg/dL Calcium 8.2 L (8.7-10.3) mg/dL Adrenal panel 11/21/21 Range/Units 06:41 Sodium 134 L (135-145) mmol/L Potassium 3.5 (3.5-5.5) mmol/L Chloride 97 (96-109) mmol/L Carbon Dioxide 25.2 (20.0-27.5) mmol/L BUN 4.4 L (9.0-27.0) mg/dL Creatinine 0.4 L (0.6-1.5) mg/dL Glucose 100 (70-110) mg/dL Calcium 8.2 L (8.7-10.3) mg/dL Assessment and Plan Assessment: Multiple wounds in the bilateral upper and lower extremities Left elbow swelling with drainage and erythema Alcoholism approximate fifth of vodka per day Plan: At this time the patient maintains strongly palpable pulses. At any evidence of peripheral vascular disease at this time. Continue local wound care. Wound should heal with appropriate management. I see no current need for deep aggressive wound debridement, should all be relatively superficial. we'll defer to wound care at this point. If any further need for debridement was identified please let me know
--- NOTE | 2021-11-22 18:12 | PN ---
PROGRESS NOTE DATE OF SERVICE: 11/22/2021 This 56-year-old gentleman who was admitted with change in mental status and significant abrasions also had history of falls. The patient has significant infection in both upper limbs. PT/OT is evaluating the patient, also. Patient also had features of sepsis and left rotator cuff tear. The patient is on broad-spectrum IV antibiotics. Cultures are negative so far. Past medical history reviewed. PHYSICAL EXAMINATION: Patient is alert, oriented x3. Pulse is 109, blood pressure 121/82, respiration 18, temperature 98.4, pulse ox 97% on room air. HEENT: Conjunctivae normal. NECK: No jugular venous distention. CARDIOVASCULAR: S1, S2 muffled. RESPIRATION: Breath sounds diminished at the bases. ABDOMEN: Soft, nontender. LEGS: No edema. No swelling. NERVOUS SYSTEM: Diffusely weak. SKIN: Significant ulcerations and cellulitis and ecchymosis present, painful, on both upper limbs, and abrasions on the left lower limb also present. LABS: WBC 10.87, hemoglobin 7.8, sodium 134. Other labs are noted. Procalcitonin 3.87. ASSESSMENT: 1. Acute cellulitis, abrasion, with some necrosis with sepsis, present on admission. 2. Change in mental status, acute metabolic encephalopathy. 3. Left rotator cuff tear. 4. History of nicotine dependence. 5. History of EtOH abuse. 6. History of chronic obstructive pulmonary disease, asthma, not in exacerbation. 7. History of seizure. 8. History of anxiety, depression. 9. Hyponatremia. 10.Hypokalemia, severe. 11.Elevated CRP. 12.Increased white count. 13.Anemia, macrocytic. 14.Gait dysfunction. 15.FULL CODE. RECOMMENDATIONS AND DISCUSSION: In this 56-year-old gentleman who presented with multiple complex medical issues, we will monitor the patient closely, continue the current medications. Continue the local treatment with IV antibiotics. PT/OT evaluation, possible ECF rehab. 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 Prognosis extremely guarded because of the multiple complex medical issues. Further recommendations to follow. MMODL / IJN: [id number] /
[2021-11-22] MEDS: ONDANSETRON 4 MG/2 ML VIAL IVP PRN (19:14)
--- NOTE | 2021-11-22 23:11 | PN ---
PROGRESS NOTE DATE OF SERVICE: 11/22/2021 REASON FOR FOLLOWUP: 1. Left upper extremity cellulitis, question of olecranon bursitis. 2. Necrotic toes. INTERVAL HISTORY: The patient did spike a fever this evening of 101 degrees Fahrenheit. The patient denies having any chest pain or shortness of breath or cough. No abdominal pain or any worsening pain to the left upper extremity. PHYSICAL EXAMINATION: Blood pressure is 110/70 with a pulse of 133, temperature 100.5. He is 93% on room air. General description is a middle-aged male lying in bed in no distress. Respiratory system: Unlabored breathing, decreased intensity of breath sounds. No wheeze. Heart S1, S2. Regular rate and rhythm. Abdomen soft, no tenderness. Left upper extremity still has swelling. Bilateral toes are currently wrapped. DIAGNOSTIC IMPRESSION AND PLAN: 1. Patient with left upper extremity cellulitis, concern for possible olecranon bursitis. Orthopedics has been consulted. We are waiting for their evaluation, possible drainage and deep cultures. Patient to continue with vancomycin and Unasyn. 2. Feet wounds, for which Vascular Surgery and Wound Care have been consulted. Will follow their recommendations. MMODL / IJN: [id number] /
[2021-11-23] MEDS: AMPICILLIN-SULBACTAM 3 GM in SODIUM CHLORIDE 0.9% 100 ML IVPB SCH ×5 (00:19→23:44)
[2021-11-23] MEDS: VANCOMYCIN 1,500 MG in SODIUM CHLORIDE 0.9% 250 ML IVPB SCH ×3 (03:54→19:29)
[2021-11-23] MEDS: ACETAMINOPHEN TAB 325 MG TAB PO PRN ×3 (05:53→23:44)
[2021-11-23] MEDS: MAGNESIUM OXIDE 400 MG TAB PO SCH ×3 (07:45→21:12)
[2021-11-23] MEDS: SUCRALFATE 1 GM TAB PO SCH ×4 (07:45→21:12)
[2021-11-23] MEDS: PANTOPRAZOLE 40 MG TABLET PO SCH (07:45)
[2021-11-23] MEDS: HEPARIN SODIUM,PORCINE/PF 5,000 UNIT/0.5 ML SYRINGE SQ SCH ×2 (07:45→21:12)
[2021-11-23] MEDS: CHOLECALCIFEROL 125 MCG (5000 IU) TABLET PO SCH (07:46)
[2021-11-23] MEDS: THIAMINE 100 MG TAB PO SCH ×2 (07:46→17:16)
[2021-11-23] MEDS: NICOTINE 21MG/24HR PATCH TRANSDERM SCH (07:46)
[2021-11-23] MEDS: SYMBICORT 160-4.5 MCG INHALER INHALATION SCH ×2 (08:21→21:14)
[2021-11-23 09:35] LABS: Basophils # (A) 0.04 X 10*3/uL (0.00-0.10); Basophils % (A) 0.2 %; Eosinophils # (A) 0.17 X 10*3/uL (0.04-0.35); HCT 24.6 % (39.6-50.0); HGB 7.9 g/dL (13.0-17.0); Lymphocytes # (A) 2.38 X 10*3/uL (0.90-5.00); Lymphocytes % (A) 14.3 %; MCH 33.5 pg (27.0-32.0); MCHC 32.1 g/dL (32.0-37.0); MCV 104.2 fL (80.0-97.0); Mean Platelet Volume 10.1 fL (9.5-12.2); Monocytes # (A) 2.18 X 10*3/uL (0.20-1.00); Monocytes % (A) 13.1 %; Neutrophils # (A) 11.51 X 10*3/uL (1.80-7.70); Neutrophils % (A) 69.5 %; Platelet Count 306 X 10*3/uL (140-440); RBC 2.36 X 10*6/uL (4.40-5.60); RDW 15.5 % (11.5-14.5)
[2021-11-23 10:01] LABS: ALT 35 U/L (10-49); AST 30 U/L (14-35); Albumin 2.7 g/dL (3.8-4.9); Albumin/Globulin Ratio 1.08 (1.60-3.17); Alkaline Phosphatase 59 U/L (41-126); BUN/Creat Ratio 17.75 Ratio (12.00-20.00); Blood Urea Nitrogen 7.1 mg/dL (9.0-27.0); Calcium 8.4 mg/dL (8.7-10.3); Chloride 95 mmol/L (96-109); Globulin 2.5 g/dL (1.6-3.3); Glucose 84 mg/dL (70-110); Non-African American GFR(CKD) 133.7 (60.0-200.0); Potassium 3.7 mmol/L (3.5-5.5); Sodium 131 mmol/L (135-145); Total Bilirubin <0.20 mg/dL (0.30-1.20); Total Protein 5.2 g/dL (6.2-8.2)
[2021-11-23] MEDS: SODIUM CHLORIDE 0.9% 1,000 ML IV SCH (11:55)
--- NOTE | 2021-11-23 15:53 | P.CNOR ---
History of Present Illness - HPI Consult date: 11/23/21 History of present illness: This patient is a 56-year-old male with past medical history of COPD, chronic alcohol abuse that presented to [facility] emergency department on 11/18/21 via EMS lethargic. Per EMS patient was released from nursing home just a few hours prior. Upon presentation to the ED patient was febrile and was diagnosed w ith left arm cellulitis. He was started on IV antibiotics and admitted under the care of internal medicine. Infectious disease and vascular surgery was also consulted. WBC 25.4 on admission, currently 16.6. Doppler ultrasound of the left upper extremity was negative for DVT. CT scan of the left upper extremity was negative for deep abscess or fluid collection. Orthopedic surgery is consulted for concern for olecranon bursitis. The patient is seen and examined bedside today with Dr. Corrales.He is currently eating breakfast. He states he is having pain in his left upper extremity. He states that he otherwise feels well and does not have any additional complaints. Vitals signs stable. 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 Severe ETOH abuse. Hx alcohol withdrawal seizures/DTs, 1 yr ago, aspiration pneumonia, encephalopathy d/t alcohol, falls, thrombocytopenia, chronic SOB. History of Any Multi-Drug Resistant Organisms: None Reported Past Surgical History: Ear Surgery, Tonsillectomy Additional Past Surgical History / Comment(s): Bilateral mastoidectomies, sinus surgery and vocal cord scraping, cataract surgery, blocks for migraines. Past Anesthesia/Blood Transfusion Reactions: Motion Sickness Past Psychological History: Anxiety, Bipolar, Depression Additional Psychological History / Comment(s): Pt lives with his girlfriend. He uses no assistive device. He does not have a license d/t [employer]. 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 Smoking Status: Current every day smoker Past Alcohol Use History: Daily, Heavy Additional Past Alcohol Use History / Comment(s): Pt started smoking in 1979 and is a ppd smoker. Drinks 1 pint daily. Past Drug Use History: Marijuana Additional Drug Use History / Comment(s): Smokes marijuana approximately once a day. - Past Family History Father Family Medical History: Cancer Mother Family Medical History: Hyperlipidemia Brother(s) Additional Family Medical History / Comment(s): Bipolar, schizoprenia. Medications and Allergies Home Medications Medication Instructions Recorded Confirmed Type Omeprazole [PriLOSEC] 20 mg PO BID 12/02/19 11/18/21 History Cholecalciferol [Vitamin D3 (25 125 mcg PO DAILY 05/30/21 11/18/21 History Mcg = 1000 Iu)] Albuterol Sulfate [Proair Hfa] 1 - 2 puff INHALATION RT-Q6H PRN 08/16/21 11/18/21 History Metoclopramide [Reglan] 10 mg PO HS PRN 08/16/21 11/18/21 History Ondansetron [Zofran] 4 mg PO Q8HR PRN 08/16/21 11/18/21 History Sucralfate [Carafate] 1 gm PO ACHS 08/16/21 11/18/21 History busPIRone HCL 5 mg PO TID PRN 08/16/21 11/18/21 History traZODone HCL 50 - 100 mg PO HS PRN 08/16/21 11/18/21 History Albuterol Nebulized [Ventolin 2.5 mg INHALATION RT-QID PRN 10/25/21 11/18/21 History Nebulized] Budesonide/Formoterol Fumarate 2 puff INHALATION RT-BID 10/25/21 11/18/21 History [Symbicort 160-4.5 Mcg Inhaler] Famotidine [Pepcid] 20 mg PO DAILY 10/25/21 11/18/21 History Hydrocortisone Cream 1 applic TOPICAL QID PRN 10/25/21 11/18/21 History [Hydrocortisone 2.5% Cream] Ibuprofen [Motrin] 800 mg PO QID PRN 10/25/21 11/18/21 History Meclizine HCl 25 mg PO BID PRN 10/25/21 11/18/21 History LORazepam [Ativan] 1 mg PO Q8HR PRN #6 tab 11/01/21 11/18/21 Rx Magnesium Oxide [Mag-Ox] 400 mg PO TID 30 Days #90 tablet 11/01/21 11/18/21 Rx Thiamine [Vitamin B-1] 100 mg PO BID-W/MEALS 30 Days #60 12/07/21 12/24/21 Rx tab guaiFENesin [Mucinex] 600 mg PO Q12HR PRN 11/18/21 11/18/21 History Allergies Allergy/AdvReac Type Severity Reaction Status Date / Time No Known Allergies Allergy Verified 11/18/21 13:19 Physical Examination On examination, the patient is sitting up in the bedside chair eating breakfast. He is alert and orientated 3. A focused examination of the left upper extremity is conducted. On inspection of the left upper extremity, there are multiple superficial wounds. There is diffuse swelling and erythema of the elbow and forearm. There is palpable fluctuance to the posterior elbow. The left upper extremity is warm and well perfused with brisk capillary refill distally. Motor and sensory motion is intact of the left upper extremity. Results CT scan left upper extremity 11/20/21: Subcutaneous swelling from mid to distal humerus without discrete fluid collection. Left elbow x-ray 11/21/21: No acute fractures. - Labs Labs: Abnormal Lab Results - Last 24 Hours (Table) 11/23/21 11/23/21 Range/Units 04:46 04:46 WBC 16.60 H (4.50-10.00) X 10*3/uL RBC 2.36 L (4.40-5.60) X 10*6/uL Hgb 7.9 L (13.0-17.0) g/dL Hct 24.6 L (39.6-50.0) % MCV 104.2 H (80.0-97.0) fL MCH 33.5 H (27.0-32.0) pg RDW 15.5 H (11.5-14.5) % Immature Gran # 0.32 H (0.00-0.04) X 10*3/uL Neutrophils # 11.51 H (1.80-7.70) X 10*3/uL Monocytes # 2.18 H (0.20-1.00) X 10*3/uL Sodium 131 L (135-145) mmol/L Chloride 95 L (96-109) mmol/L BUN 7.1 L (9.0-27.0) mg/dL Creatinine 0.4 L (0.6-1.5) mg/dL Calcium 8.4 L (8.7-10.3) mg/dL Total Bilirubin <0.20 L (0.30-1.20) mg/dL Total Protein 5.2 L (6.2-8.2) g/dL Albumin 2.7 L (3.8-4.9) g/dL Albumin/Globulin Ratio 1.08 L (1.60-3.17) g/dL Microbiology - Last 24 Hours (Table) 11/18/21 12:11 Blood Culture - Preliminary Blood No Growth after 120 hours 11/18/21 11:55 Blood Culture - Preliminary Blood No Growth after 120 hours 11/22/21 11:30 Gram Stain - Preliminary Arm - Left Wound Culture - Preliminary 11/22/21 11:30 Anaerobic Culture - Preliminary Arm - Left H & H 11/18/21 11/19/21 11/20/21 Range/Units 10:18 08:14 17:06 Hgb 9.7 L 8.1 L 8.3 L (13.0-17.5) gm/dL Hct 28.4 L 24.0 L 25.6 L (39.0-53.0) % 11/21/21 11/23/21 Range/Units 06:41 04:46 Hgb 7.8 L 7.9 L (13.0-17.5) gm/dL Hct 23.7 L 24.6 L (39.0-53.0) % Coagulation 11/18/21 Range/Units 10:18 INR 0.9 (<1.2) Result Diagrams: 11/23/21 04:46 11/23/21 04:46 Assessment and Plan Assessment: Left upper extremity cellulitis Left septic olecranon bursitis Plan: - clinical and imaging findings were discussed with the patient. The patient was also seen and examined by Dr. Floyd. Aspiration of the left olecranon bursa reveals ralph purulence. Recommend formal I&D in the operating room tomorrow. - Continue IV antibiotics and wound care under the discretion of infectious disease, wound care. - Medical management per admitting team. - NPO diet at midnight. - Will plan for OR tomorrow. Procedure: Verbal consent over the left olecranon bursa aspiration was obtained. The skin over the olecranon bursa was prepped and 18-gauge needle was inserted directly into the olecranon bursa and 3 mL's of ralph purulence was aspirated. The needle was withdrawn and a Band-Aid was applied. The patient tolerated this well. The fluid was sent to the lab for culture.
--- NOTE | 2021-11-23 17:22 | PN ---
PROGRESS NOTE DATE OF SERVICE: 11/23/2021. This 56-year-old gentleman was admitted with bilateral leg extensive cellulitis is being closely monitored. PT/OT following the patient closely. No chest pain. No palpitations. No fever. The cultures are negative so far. PHYSICAL EXAMINATION: Alert and oriented times three. Pulse 107. Blood pressure is 144/85, respirations 16, temperature 97.3, pulse ox 99% on room air. HEENT: Conjunctivae normal. Neck: No JVD. Cardiovascular: S1, S2 muffled. Respirations: Breath sounds diminished in the bases. No rhonchi. Abdomen: Soft. Nervous system: Diffusely weak. Otherwise skin diffuse infection present. LABS: WBC 16, hemoglobin 12.9. Other labs are noted. ASSESSMENT: 1. Acute cellulitis abrasion with some necrosis with sepsis present on admission, diffusely mainly both upper limbs. 2. Change in mental status acute metabolic encephalopathy multifactorial. 3. Left rotator cuff tear. 4. History of nicotine dependence. 5. Poor social support. 6. Gait dysfunction. 7. History EtOH abuse. 8. History of chronic obstructive pulmonary disease, asthma, not in exacerbation. 9. History of seizure disorder. 10.History of anxiety, depression. 11.Hyponatremia. 12.Hypokalemia, severe. 13.Elevated CRP. 14.Increased WBC. 15.Anemia, macrocytic. 16.Gait dysfunction. 17.FULL CODE. RECOMMENDATIONS AND DISCUSSION: Recommend to continue current medications. Continue symptomatic treatment. Continue the antibiotics. Await the final cultures. Closely follow with Infectious Disease. PT/OT evaluation. [employer] Leadperson and Case Management to evaluate the home situation and continue to monitor. Prognosis guarded. Further recommendations to follow. MMODL / IJN: [id number] /
--- NOTE | 2021-11-23 23:29 | P.PN ---
Progress Note - Text Progress Note Date: 11/23/21 REASON FOR FOLLOWUP: 1. Left upper extremity cellulitis, question of olecranon bursitis. 2. Necrotic toes. INTERVAL HISTORY: The patient overall fever pattern has improved. The patient denies having any chest pain or shortness of breath or cough. No abdominal pain or any worsening pain to the left upper extremity. PHYSICAL EXAMINATION: Blood pressure is 110/70 with a pulse of 133, temperature 100.5. He is 93% on room air. General description is a middle-aged male lying in bed in no distress. Respiratory system: Unlabored breathing, decreased intensity of breath sounds. No wheeze. Heart S1, S2. Regular rate and rhythm. Abdomen soft, no tenderness. Left upper extremity still has swelling. Bilateral toes are currently wrapped. LABS: Reviewed cultures are negative so far DIAGNOSTIC IMPRESSION AND PLAN: 1. Patient with left upper extremity cellulitis, concern for possible olecranon bursitis. Patient has been evaluated by orthopedics and the patient is status post aspirate of the elbow cultures will follow continue with the Unasyn and vancomycin 2. Feet wounds, for which Vascular Surgery and Wound Care have been consulted. Will follow their recommendations.
[2021-11-24] MEDS: SODIUM CHLORIDE 0.9% 1,000 ML IV SCH ×2 (00:39→19:09)
[2021-11-24] MEDS: VANCOMYCIN 1,500 MG in SODIUM CHLORIDE 0.9% 250 ML IVPB SCH ×3 (03:41→21:26)
[2021-11-24 05:24] LABS: African American GFR (CKD) >90 (>60 ml/min/1.73 sqM); Non-African American GFR(CKD) >90 (>60 ml/min/1.73 sqM)
[2021-11-24] MEDS: ACETAMINOPHEN TAB 325 MG TAB PO PRN ×2 (05:55→15:52)
[2021-11-24] MEDS: AMPICILLIN-SULBACTAM 3 GM in SODIUM CHLORIDE 0.9% 100 ML IVPB SCH ×4 (05:55→23:36)
[2021-11-24] MEDS: SYMBICORT 160-4.5 MCG INHALER INHALATION SCH ×2 (08:02→20:56)
[2021-11-24] MEDS ORDERED: LACTATED RINGERS 1,000 ML IV ONE ×2 (11:57→14:42)
[2021-11-24] MEDS: ONDANSETRON 4 MG/2 ML VIAL IVP PRN (11:58)
[2021-11-24] MEDS: HEPARIN SODIUM,PORCINE/PF 5,000 UNIT/0.5 ML SYRINGE SQ SCH ×2 (12:04→21:25)
[2021-11-24] MEDS: PANTOPRAZOLE 40 MG TABLET PO SCH (12:04)
[2021-11-24] MEDS: THIAMINE 100 MG TAB PO SCH ×2 (12:04→17:21)
[2021-11-24] MEDS: SUCRALFATE 1 GM TAB PO SCH ×4 (12:04→21:25)
[2021-11-24] MEDS: CHOLECALCIFEROL 125 MCG (5000 IU) TABLET PO SCH (12:04)
[2021-11-24] MEDS: MAGNESIUM OXIDE 400 MG TAB PO SCH ×3 (12:04→21:25)
[2021-11-24] MEDS ORDERED: fentaNYL (PF) 50 MCG/ML 2 ML AMP ONE (13:40)
[2021-11-24] MEDS ORDERED: LIDOCAINE 1% INJ 10MG/ML (20 ML MDV) ONE (13:40)
[2021-11-24] MEDS ORDERED: MIDAZOLAM 2 MG/2 ML VIAL ONE (13:40)
[2021-11-24] MEDS ORDERED: PROPOFOL 10 MG/ML 20 ML VIAL IV ONE (13:40)
[2021-11-24] MEDS ORDERED: SODIUM CHLORIDE 0.9% 100 ML with ceFAZolin 2,000 MG IV ONE ×2 (14:00)
--- NOTE | 2021-11-24 14:52 | P.OP ---
Date of Procedure: 11/24/21 Preoperative Diagnosis: 1. Left septic olecranon bursitis 2. Left multi-loculated forearm abscess and diffuse cellulitis 3. Chronic alcoholic drinking up to 1/5 of alcohol per day 4. Current every day cigarette smoker 5. COPD 6. Recent institutionalization in intermediate Postoperative Diagnosis: Same Procedure(s) Performed: 1. Extensive irrigation and excisional debridement of left septic olecranon bursa and multiloculated forearm abscess (an extensive excisional debridement was performed using a scalpel of all nonviable skin and subcutaneous tissue down to the fascia) 2. Application of negative pressure dressing (wound VAC) left elbow Anesthesia: CHARLY Surgeon: Choco Corrales Estimated Blood Loss (ml): 50 Pathology: other (Multiple deep fluid and tissue cultures) Condition: stable Disposition: PACU Indications for Procedure: The patient is a very unhealthy 56-year-old male with multiple medical problems including being a chronic alcoholic, smoking cigarettes, COPD, and recent institutionalization who was admitted following multiple falls with multiple abrasions and a severe left upper extremity infection. Orthopedic was consulted to evaluate his left olecranon bursa. He was found to have diffuse swelling and an area of fluctuance over the olecranon. This was aspirated and gross purulence was found. He had diffuse overlying swelling and cellulitis. I recommended formal incision and drainage in the operating room. A long discussion with the patient and the potential risks and Contusions of surgery including but certainly not limited to risks from anesthesia, superficial or deep infection, damage to local blood vessels or nerves, delayed wound healing, need for further surgery, spread of infection, medical complications, and possibly loss of life or limb. The patient understands the severity of his infection and also understands was multiple comorbidities plane having a poor outcome. Operative Findings: Septic arthritis with gross purulence in the olecranon bursa and a multiloculated abscess in the dorsal forearm Description of Procedure: The patient was identified in preoperative holding and the correct left arm was marked with my initials. I reviewed the consent form with the patient all of his questions were answered. The patient was then brought back to the operating room. He was positioned on his gurney and a general anesthetic and preoperative antibiotics were given. The patient's left arm was draped across his body and then prepped and draped in the standard sterile fashion. Prior to starting surgery timeout was performed identifying the correct patient, operative extremity, and procedure. I began by making a longitudinal incision over the dorsal aspect of the elbow extending distally. Dissection was carried down to the subcutaneous tissue. Immediately upon entering the olecranon bursa there was a large tinajero of purulence. This was swabbed and sent for culture. Soft tissue was also excised and sent for culture. I used my finger to probe distally and opened another multiloculated abscess cavity in the subcutaneous forearm. There is a large amount of gross purulence which was swabbed for culture as this was a separate cavity. The wound was then thoroughly explored to make sure all cavities had been broken up. An extensive debridement using a scalpel was performed of all nonviable skin and subcutaneous tissue down to the fascia. Once all grossly necrotic and infected tissue then excised a thorough debridement using 3 L of sterile saline and cystoscopy tubing was performed. The wound was then reapproximated at the most proximal and distal part of the incision leaving the majority of the wound open to drain. The wound was packed with a sponge for a wound VAC, sealed, and hooked up to the wound VAC canister with suction set to continuous 125 mmHg suction. The arm was wrapped and web roll and an Fco wrap and placed into a sling. The patient was brought to recovery after being woken up in stable condition. Plan: Would like to leave the wound VAC dressing on for 48 hours. At that point we will take the dressing down and evaluate the wound. Due to the significant infection he may require a second formal debridement in the operating room. If the wound looks bed in 2 days we will perform a second debridement. If the wound looks benign after 48 hours of the wound VAC and I will turn over the wound to Dr. Yu with infectious disease. I will defer all long-term wound care and antibiotics to Dr. Yu with the wound team and infectious disease.
[2021-11-24] MEDS: NICOTINE 21MG/24HR PATCH TRANSDERM SCH (16:54)
[2021-11-24] MEDS: HYDROcodone/APAP 5-325MG 1 EACH TAB PO PRN (16:54)
--- NOTE | 2021-11-24 17:43 | PN ---
PROGRESS NOTE DATE OF SERVICE: 11/24/2021 This 56-year-old gentleman with significant cellulitis also had the possibility of sepsis. The patient also had left septic olecranon bursitis and multiple loculated forearm abscesses. The patient underwent extensive irrigation and excision of the left septic olecranon bursitis and multiloculated forearm abscesses and wound VAC was also noted. No chest pain. No palpitations. No fever. Cultures are negative so far. PHYSICAL EXAMINATION: Alert and oriented x2. Pulse is 100, blood pressure is 138/106, respirations 16, temperature 96.8, pulse ox is 94% on room air. HEENT: Conjunctivae normal. Oral mucosa moist. NECK: No jugular venous distention. No lymph node enlargement. CARDIOVASCULAR: S1, S2, muffled. No S3, no S4, RESPIRATORY: Diminished breath sounds at the bases. No rhonchi, no crackles. ABDOMEN: Soft. LEGS: No edema, no swelling. NERVOUS SYSTEM: No focal deficits. Left arm is status post surgery. LABS: WBC 16, hemoglobin 7.9, sodium 131. ASSESSMENT: 1. Acute cellulitis and abrasions with multiple abscesses including the left septic olecranon abscess and left multiloculated forearm abscess status post incision and drainage with sepsis present on admission. 2. Change in mental, status acute metabolic encephalopathy secondary to sepsis, multifactorial. 3. Left rotator cuff tear. 4. History of nicotine dependence. 5. History of poor social support. 6. Gait dysfunction. 7. History of ETOH abuse. 8. History of chronic COPD and asthma, not in exacerbation. 9. History of seizure disorder. 10.History of anxiety, depression. 11.Hyponatremia. 12.Hypokalemia, severe. 13.Elevated CRP. 14.Increased WBC. 15.Anemia, macrocytic. 16.Gait dysfunction. 17.FULL CODE. RECOMMENDATIONS AND DISCUSSION: Continue current medical management , continue symptomatic treatment. Continue the antibiotics. Await final cultures. Repeat labs and we will monitor the patient closely with multiple consultants including Infectious Disease as well as Orthopedic surgery. Further recommendations to follow. MMODL / IJN: [id number] /
--- NOTE | 2021-11-24 18:59 | PN ---
PROGRESS NOTE DATE OF SERVICE: 11/24/2021 REASON FOR FOLLOWUP: Left septic olecranon bursitis and abscess. INTERVAL HISTORY: The patient was taken to the OR status post I&D of the left olecranon bursitis. The patient tolerated the procedure. The patient is currently complaining of pain to the left elbow area. He is wanting more pain medication. No chest pain, shortness of breath or cough. No abdominal pain or diarrhea. PHYSICAL EXAMINATION: Blood pressure 140/79 with a pulse of 99, temperature is 96.8. He is 95% on room air. General description is a middle-aged male lying in bed in no distress. Respiratory system: Unlabored breathing, clear to auscultation anteriorly. Heart S1, S2. Regular rate and rhythm. Abdomen soft, no tenderness. Left elbow is currently covered with a wound VAC. LABS: Hemoglobin 7.1, white count 16.60, creatinine 0.52. Cultures are currently pending. DIAGNOSTIC IMPRESSION AND PLAN: Patient with left upper extremity cellulitis with underlying septic olecranon bursitis status post bursectomy and drainage of the abscess. Culture has been repeated. The patient is covered with vancomycin and Unasyn, adjusting antibiotic further based on culture report. Continue supportive care. MMODL / IJN: [id number] /
[2021-11-25] MEDS: ACETAMINOPHEN TAB 325 MG TAB PO PRN ×3 (01:44→21:02)
[2021-11-25] MEDS: VANCOMYCIN 1,500 MG in SODIUM CHLORIDE 0.9% 250 ML IVPB SCH ×3 (03:00→21:03)
[2021-11-25] MEDS: SODIUM CHLORIDE 0.9% 1,000 ML IV SCH ×3 (03:01→21:07)
[2021-11-25] MEDS: AMPICILLIN-SULBACTAM 3 GM in SODIUM CHLORIDE 0.9% 100 ML IVPB SCH ×3 (05:40→17:20)
[2021-11-25 06:26] LABS: African American GFR (CKD) >90 (>60 ml/min/1.73 sqM); Anion Gap 6 mmol/L; Blood Urea Nitrogen 8 mg/dL (9-20); Calcium 8.6 mg/dL (8.4-10.2); Carbon Dioxide 25 mmol/L (22-30); Chloride 97 mmol/L (98-107); Glucose 104 mg/dL (74-99); Non-African American GFR(CKD) >90 (>60 ml/min/1.73 sqM); Potassium 3.7 mmol/L (3.5-5.1); Sodium 128 mmol/L (137-145)
[2021-11-25] MEDS: SYMBICORT 160-4.5 MCG INHALER INHALATION SCH ×2 (08:16→20:32)
[2021-11-25] MEDS: THIAMINE 100 MG TAB PO SCH ×2 (08:41→17:20)
[2021-11-25] MEDS: HEPARIN SODIUM,PORCINE/PF 5,000 UNIT/0.5 ML SYRINGE SQ SCH ×2 (08:41→21:03)
[2021-11-25] MEDS: SUCRALFATE 1 GM TAB PO SCH ×4 (08:41→21:03)
[2021-11-25] MEDS: PANTOPRAZOLE 40 MG TABLET PO SCH (08:41)
[2021-11-25] MEDS: MAGNESIUM OXIDE 400 MG TAB PO SCH ×3 (08:41→21:03)
[2021-11-25] MEDS: NICOTINE 21MG/24HR PATCH TRANSDERM SCH (08:41)
[2021-11-25] MEDS: CHOLECALCIFEROL 125 MCG (5000 IU) TABLET PO SCH (08:41)
[2021-11-25 10:51] LABS: Basophils # (A) 0.05 X 10*3/uL (0.00-0.10); Basophils % (A) 0.3 %; Eosinophils # (A) 0.18 X 10*3/uL (0.04-0.35); Eosinophils % (A) 1.1 %; Lymphocytes # (A) 1.81 X 10*3/uL (0.90-5.00); Lymphocytes % (A) 11.5 %; Monocytes # (A) 1.91 X 10*3/uL (0.20-1.00); Monocytes % (A) 12.2 %; Neutrophils # (A) 11.49 X 10*3/uL (1.80-7.70); Neutrophils % (A) 73.3 %
[2021-11-25 10:52] LABS: HCT 20.9 % (39.6-50.0); HGB 6.7 g/dL (13.0-17.0); MCH 33.3 pg (27.0-32.0); MCHC 32.1 g/dL (32.0-37.0); Mean Platelet Volume 9.8 fL (9.5-12.2); Platelet Count 317 X 10*3/uL (140-440); RBC 2.01 X 10*6/uL (4.40-5.60); RDW 15.6 % (11.5-14.5); WBC 15.69 X 10*3/uL (4.50-10.00)
[2021-11-25] MEDS ORDERED: VANCOMYCIN TROUGH DUE 1 EACH MISC MISCELLANE ONE (11:00)
--- NOTE | 2021-11-25 11:17 | P.PN ---
Subjective Progress Note Date: 11/25/21 This patient is a 56-year-old male with a past medical history of COPD, chronic alcohol abuse who is status-post I&D of left septic olecranon bursa and multiloculated forearm abscess with application of wound VAC on 11/24/21. Today's post-operative day #1. The patient is seen and examined bedside with Dr. Corrales. The patient states his arm does feel slightly better today after surgery. His left upper extremity is currently dressed with a wound VAC and dressing. He has no new complaints today. Vital signs stable. Objective - Vital Signs Vital signs: Vital Signs Temp 98.9 F 11/25/21 07:27 Pulse 97 11/25/21 07:27 Resp 18 11/25/21 07:27 BP 139/87 11/25/21 07:27 Pulse Ox 97 11/25/21 07:27 Intake & Output 11/24/21 11/25/21 11/25/21 18:59 06:59 18:59 Intake Total 1300 841 Output Total 1455 1000 1200 Balance -155 -159 -1200 Intake: IV 1300 Oral 841 Output: Urine 1450 1000 1200 Estimated Blood Loss 5 Other: Voiding Method External Catheter External Catheter External Catheter # Bowel Movements 1 0 - Exam On examination, the patient is sitting up in bed in no apparent distress. He is alert and oriented 3. On inspection of the left upper extremity, extremity is dressed with an Fco wrap and an underlying wound VAC. This dressing is not removed. The hand appears warm and well-perfused with brisk capillary refill of the fingers. He is able to move his fingers appropriately. - Labs CBC & Chem 7: 11/25/21 05:14 11/25/21 05:14 Labs: Abnormal Lab Results - Last 24 Hours (Table) 11/25/21 11/25/21 Range/Units 05:14 05:14 WBC 15.69 H (4.50-10.00) X 10*3/uL RBC 2.01 L (4.40-5.60) X 10*6/uL Hgb 6.7 L* (13.0-17.0) g/dL Hct 20.9 L (39.6-50.0) % MCV 104.0 H (80.0-97.0) fL MCH 33.3 H (27.0-32.0) pg RDW 15.6 H (11.5-14.5) % Immature Gran # 0.25 H (0.00-0.04) X 10*3/uL Neutrophils # 11.49 H (1.80-7.70) X 10*3/uL Monocytes # 1.91 H (0.20-1.00) X 10*3/uL Sodium 128 L (137-145) mmol/L Chloride 97 L (98-107) mmol/L BUN 8 L (9-20) mg/dL Creatinine 0.63 L (0.66-1.25) mg/dL Glucose 104 H (74-99) mg/dL Microbiology - Last 24 Hours (Table) 11/24/21 14:41 Gram Stain - Preliminary Elbow - Left Tissue Culture - Preliminary 11/24/21 14:41 Gram Stain - Preliminary Elbow - Left Wound Culture - Preliminary 11/24/21 14:41 Gram Stain - Preliminary Elbow - Left Wound Culture - Preliminary 11/24/21 14:41 Gram Stain - Preliminary Elbow - Left Wound Culture - Preliminary 11/24/21 14:41 Anaerobic Culture - Preliminary Elbow - Left 11/24/21 14:41 Anaerobic Culture - Preliminary Elbow - Left 11/24/21 14:41 Anaerobic Culture - Preliminary Elbow - Left 11/24/21 14:41 Anaerobic Culture - Preliminary Elbow - Left 11/23/21 15:04 Gram Stain - Preliminary Other - Other Wound Culture - Preliminary Presumptive Staph aureus 11/22/21 11:30 Anaerobic Culture - Preliminary Arm - Left 11/18/21 12:11 Blood Culture - Final Blood No Growth after 144 hours 11/18/21 11:55 Blood Culture - Final Blood No Growth after 144 hours 11/22/21 11:30 Gram Stain - Final Arm - Left Wound Culture - Final Assessment and Plan Assessment: Status-post I&D of left septic olecranon bursa and multiloculated forearm absces s with application of wound VAC on 11/24/21. Plan: -Patient is seen and examined bedside this morning with Dr. Corrales. We will plan to keep the wound VAC in place for an additional 24 hours. We will plan to remove the wound VAC tomorrow morning and assess his elbow and forearm. Pending how the wound looks, he may need a second debridement in the operating room tomorrow. We will tentatively plan for this and make the patient NPO at midnight. - Continue IV antibiotics under the discretion of Dr. Yu. We will continue to follow intraoperative cultures closely. - Pain management as needed.
[2021-11-25] MEDS: MULTIVITAMINS, THERA 1 EACH TAB PO SCH (11:34)
[2021-11-25] MEDS: FOLIC ACID 1 MG TAB PO SCH (11:34)
--- NOTE | 2021-11-25 18:39 | PN ---
PROGRESS NOTE DATE OF SERVICE: 11/25/2021 This 56-year-old gentleman who was admitted with acute cellulitis and multiple abscesses had incision and drainage at this time. The patient is on broad spectrum IV antibiotics. Wound cultures is growing presumptive Staph aureus. No chest pain. No palpitations. No fever. Hemoglobin is 6.7. The patient also had anemia today, being transfused. PHYSICAL EXAMINATION: Alert and oriented x2. Pulse 98, blood pressure 153/90, respirations 16, temperature 98.2, pulse ox 98% on room air. HEENT: Conjunctivae normal. Oral mucosa moist. NECK: No jugular venous distention. No lymph node enlargement. CARDIOVASCULAR: S1, S2, muffled. No S3, no S4, RESPIRATORY: Diminished breath sounds at the bases. A few scattered rhonchi. ABDOMEN: Soft, nontender. NERVOUS SYSTEM: No focal deficits. LABS: WBC 15.69, and sodium 128. ASSESSMENT: 1. Acute cellulitis and multiple abscesses including the left olecranon septic bursa and left multilobular forearm abscess status post incision drainage and sepsis, present on admission. 2. Change in mental status, acute metabolic encephalopathy secondary to sepsis, multifactorial. 3. Anemia, possibly acute on chronic blood-loss anemia. 4. Left rotator cuff tear. 5. History of nicotine dependence. 6. History of poor social support. 7. Gait dysfunction. 8. History of EtOH abuse. 9. History of chronic COPD, asthma not in exacerbation. 10.History of seizure disorder. 11.History anxiety, depression. 12.Hyponatremia. 13.Hypokalemia, severe. 14.Elevated CRP. 15.Elevated WBC. 16.Anemia, macrocytic. 17.Gait dysfunction. 18.FULL CODE. RECOMMENDATIONS AND DISCUSSION: I recommend to continue current management and symptomatic treatment. Repeat labs. Otherwise, continue the antibiotics. We will follow the patient closely and repeat transfusion. Repeat CBC. Stool guaiac. Guarded prognosis. Further recommendations to follow. MMODL / IJN: [id number] /
--- NOTE | 2021-11-26 00:45 | PN ---
PROGRESS NOTE DATE OF SERVICE: 11/25/2021 REASON FOR FOLLOWUP: Left elbow septic bursitis and cellulitis. INTERVAL HISTORY: Patient is afebrile. The patient is breathing comfortably. Still complaining of more pain to the left elbow area wanted more pain medication. Denies any chest pain, shortness of breath or cough. No abdominal pain. No diarrhea. PHYSICAL EXAMINATION: Blood pressure 137/80 with a pulse of 114, temperature 98.8. He is 98% on room air. General description is a middle-aged male lying in bed in no distress. Respiratory system: Unlabored breathing, clear to auscultation anteriorly. Heart S1, S2. Regular rate and rhythm. Left elbow is currently covered with a wound VAC. LABS: Hemoglobin is 6.7, white count 15.69. Culture with presumptive staph aureus. DIAGNOSTIC IMPRESSION AND PLAN: Patient with left elbow septic olecranon bursitis with cultures positive for MSSA. Antibiotic will be adjusted to cefazolin 2 grams q.8 hours. Discontinue vancomycin and Unasyn. Monitor clinical course closely. MMODL / IJN: [id number] /
[2021-11-26] MEDS ORDERED: VANCOMYCIN TROUGH DUE 1 EACH MISC MISCELLANE ONE (03:00)
[2021-11-26 04:39] LABS: ALT 20 U/L (4-49); AST 23 U/L (17-59); Albumin 2.4 g/dL (3.5-5.0); Albumin/Globulin Ratio 0.8; Alkaline Phosphatase 74 U/L (38-126); Anion Gap 5 mmol/L; Blood Urea Nitrogen 8 mg/dL (9-20); Calcium 8.7 mg/dL (8.4-10.2); Carbon Dioxide 24 mmol/L (22-30); Chloride 98 mmol/L (98-107); Globulin 2.9 g/dL; Glucose 99 mg/dL (74-99); Potassium 3.8 mmol/L (3.5-5.1); Sodium 127 mmol/L (137-145); Total Bilirubin 0.1 mg/dL (0.2-1.3); Total Protein 5.3 g/dL (6.3-8.2)
[2021-11-26 04:41] LABS: African American GFR (CKD) >90 (>60 ml/min/1.73 sqM); Non-African American GFR(CKD) >90 (>60 ml/min/1.73 sqM)
[2021-11-26] MEDS: THIAMINE 100 MG TAB PO SCH ×2 (07:39→16:13)
[2021-11-26] MEDS: HEPARIN SODIUM,PORCINE/PF 5,000 UNIT/0.5 ML SYRINGE SQ SCH ×2 (07:39→21:45)
[2021-11-26] MEDS: CHOLECALCIFEROL 125 MCG (5000 IU) TABLET PO SCH (07:39)
[2021-11-26] MEDS: PANTOPRAZOLE 40 MG TABLET PO SCH (07:39)
[2021-11-26] MEDS: SUCRALFATE 1 GM TAB PO SCH ×4 (07:39→21:45)
[2021-11-26] MEDS: MAGNESIUM OXIDE 400 MG TAB PO SCH ×3 (07:39→21:45)
[2021-11-26] MEDS: NICOTINE 21MG/24HR PATCH TRANSDERM SCH (07:46)
[2021-11-26 08:46] LABS: Basophils # (A) 0.05 X 10*3/uL (0.00-0.10); Basophils % (A) 0.3 %; Eosinophils # (A) 0.11 X 10*3/uL (0.04-0.35); Eosinophils % (A) 0.7 %; HCT 23.6 % (39.6-50.0); HGB 7.7 g/dL (13.0-17.0); Lymphocytes # (A) 1.79 X 10*3/uL (0.90-5.00); MCH 32.9 pg (27.0-32.0); MCHC 32.6 g/dL (32.0-37.0); MCV 100.9 fL (80.0-97.0); Mean Platelet Volume 9.7 fL (9.5-12.2); Monocytes # (A) 1.81 X 10*3/uL (0.20-1.00); Monocytes % (A) 11.1 %; Neutrophils # (A) 12.37 X 10*3/uL (1.80-7.70); Neutrophils % (A) 75.7 %; Platelet Count 342 X 10*3/uL (140-440); RBC 2.34 X 10*6/uL (4.40-5.60); RDW 16.7 % (11.5-14.5); WBC 16.33 X 10*3/uL (4.50-10.00)
[2021-11-26] MEDS: SYMBICORT 160-4.5 MCG INHALER INHALATION SCH ×2 (09:37→21:06)
[2021-11-26] MEDS: ONDANSETRON 4 MG/2 ML VIAL IVP PRN (09:46)
[2021-11-26] MEDS ORDERED: DEXAMETHASONE SOD PHOSPHATE 4 MG/ML 1 ML VIAL IV ONE (09:46)
[2021-11-26] MEDS ORDERED: IV FLUID CONTINUATION 500 ML IV ONE (09:47)
[2021-11-26] MEDS: LACTATED RINGERS 1,000 ML IV ONE ×2 (11:34→13:00)
--- NOTE | 2021-11-26 11:47 | P.OP ---
Date of Procedure: 11/26/21 Preoperative Diagnosis: 1. Left septic olecranon bursitis and multiloculated left forearm abscess 2. Right open draining wound and likely septic olecranon bursitis 3. Open extremity abrasions 4. Bilateral foot ulcerations and likely necrotic toes 5. Chronic alcoholic 6. Chronic tobacco abuse 7. Recent institutionalization Postoperative Diagnosis: Same Procedure(s) Performed: 1. Non-excisional irrigation and debridement of left elbow and forearm wound (non-excisional debridement of skin and subcutaneous tissue using a curette) 2. Application of negative pressure dressing (wound VAC) left elbow Anesthesia: CHARLY Surgeon: Choco Corrales Estimated Blood Loss (ml): 10 IV fluids (ml): 500 Urine output (ml): 500 Pathology: none sent Condition: stable Disposition: PACU Indications for Procedure: The patient is a very pleasant 56-year-old male with multiple medical problems who underwent a left elbow and forearm irrigation and debridement and wound VAC patient 2 days ago. He presents today for repeat debridement and attempt partial closure due to the severity of the wound and infection. I met with the patient to discuss treatment options. He understands the potential risks and complications including but certainly not limited to risks from anesthesia, continued or worsened infection, spread of infection, wound healing problems, need for further surgery, amputation, and possibly . He provided his verbal and written consent to go forward with surgery. Operative Findings: 1. Left elbow: Healthy-appearing wound with minimal to no purulence. Early formation of healthy granulation tissue under wound VAC sponge. 2. Right elbow: Superficial eschar removed over the tip of the right olecranon and there was an open draining wound with no purulence, minimal erythema, and a small amount of serous drainage 3. Bilateral lower extremities: Inspection of the patient's feet he had several necrotic toes with dry eschars and no sign of active infection. Description of Procedure: The patient was identified in preoperative holding and the correct left leg was marked with my initials. I viewed the procedure at length with the patient all his questions were answered. The patient was then brought back to the operating room. He was positioned on the OR table where general anesthetic and preoperative antibiotics were given. A timeout was performed identifying the correct patient, operative extremity, and procedure. With the patient under anesthesia I took this opportunity to evaluate the patient's right arm and bilateral lower extremities. Please see findings in the operative findings section of this report. The dressing on the left elbow was then taken down. The wound VAC was removed. The left arm was then prepped and draped in the standard sterile fashion. Inspection of the wound with the patient under anesthesia and the arm sterilely prepped and draped there appeared to be no active purulence in the elbow. There was early formation of healthy granulation tissue. A non-excisional debridement using a curet was performed of all nonviable-appearing skin, subcutaneous tissue, down to fascia and muscle. The wound was then thoroughly irrigated with 3 L of sterile saline using cystoscopy tubing. The distal portion of the forearm wound was gently reapproximated using 2-0 nylon vertical mattress sutures. A wound VAC was then fashioned over the wound with an incisional sponge placed over the closed portion of the incision and an elliptical sponge placed over the open wound at the tip of the olecranon. A third sponge was placed over superficial abrasion over the lateral aspect of the elbow. The sponges were covered and then hooked up to a Anselmo pad. Excellent suction was obtained from the wound VAC was hooked up to the canister with 125 mm of continuous suction. I verified that all instrument, sponge, and sharp counts were correct. The patient was then awoken from his anesthetic, transferred from the OR table to the [facility], and brought to recovery having tolerated the procedure well. Plan: I would like to leave the wound VAC on his elbow for 48 hours. At that point orthopedics will change the dressing. After the dressing is changed I will turn the wound over to Dr. Yu and all further care will be under his management. In regards to patient's right elbow and bilateral feet I would recommend continued wound care from the primary team, Dr. Yu, and either vascular surgery or podiatry for his feet. If the patient's right elbow fails to improve with wound care and needs a formal irrigation and debridement in the operating room I be happy to perform this at a later date.
[2021-11-26 11:48] LABS: Glucose,Whole Blood 99 mg/dL (75-99)
[2021-11-26] MEDS: FOLIC ACID 1 MG TAB PO SCH (11:53)
[2021-11-26] MEDS: MULTIVITAMINS, THERA 1 EACH TAB PO SCH (11:54)
[2021-11-26] MEDS: HYDROcodone/APAP 5-325MG 1 EACH TAB PO PRN (16:13)
--- NOTE | 2021-11-26 18:55 | PN ---
PROGRESS NOTE DATE OF SERVICE: 11/26/2021 This 56-year-old gentleman who was admitted with multiple cellulitis and complex recurrent MRSA infection and forearm infection had again a repeat I and D by Dr. Corrales. The patient remains on broad-spectrum IV antibiotics. The patient had occasional confusion. The culture showed presumptive Staph aureus which is possibly MSSA. There is no history of any fever, rigor or chills. PHYSICAL EXAMINATION: Alert and oriented x2. Pulse 90, blood pressure 138/90, respiration 18, temperature 98.3, pulse ox 96% on 2 L. HEENT: Conjunctivae normal. NECK: No jugular venous distention. CARDIOVASCULAR: S1, S2 muffled. RESPIRATION: Breath sounds diminished at the bases. A few scattered rhonchi and crackles. ABDOMEN: Soft, nontender. No mass palpable. LEGS: No edema. No swelling. NERVOUS SYSTEM: Higher functions as mentioned earlier. Moves all 4 limbs. No focal motor or sensory deficit. LYMPHATICS: No lymph node palpable in neck, axillae or groin. EXAMINATION OF THE LEFT ARM: Status post surgery. LABS: WBC 16.3, hemoglobin 7.7. ASSESSMENT: 1. Acute cellulitis with multiple abscesses, including the left olecranon septic bursa and left multilobular forearm abscess, status post incision and drainage x2 with sepsis, present on admission. 2. Change in mental status, acute metabolic encephalopathy secondary to sepsis, multifactorial, present on admission. 3. Anemia, possibly acute on chronic blood-loss anemia. 4. Left rotator cuff tear. 5. History of nicotine dependence. 6. History of poor social support. 7. Gait dysfunction. 8. History EtOH abuse. 9. History of chronic obstructive pulmonary disease, asthma, not in exacerbation. 10.History of seizure disorder. 11.History of anxiety, depression. 12.Hyponatremia. 13.Hypokalemia, severe. 14.Elevated CRP. 15.Elevated white count. 16.Anemia, macrocytic. 17.Gait dysfunction. 18.FULL CODE. RECOMMENDATIONS AND DISCUSSION: I recommend to continue current medications, continue with the monitoring, symptomatic treatment. Otherwise at this time I would recommend continued antibiotics. Closely follow. Repeat labs. Closely follow with multiple consultants, including Orthopedic Surgery as well as Infectious Disease. Prognosis is guarded because of multiple complex medical issues, as detailed above. Further recommendations to follow. Possible ECF rehab eventually. MMODL / IJKareem: [id number] /
--- NOTE | 2021-11-26 20:52 | PN ---
PROGRESS NOTE DATE OF SERVICE: 11/26/2021 REASON FOR FOLLOWUP: Left elbow septic olecranon bursitis and MSSA. INTERVAL HISTORY: Patient is afebrile. The patient is breathing comfortably. Pain to the left arm has slightly decreased intensity. No chest pain, shortness of breath or cough. No abdominal pain or diarrhea. PHYSICAL EXAMINATION: Blood pressure 130/90 with a pulse of 90, temperature 98.3. He is 96% on 2 L nasal cannula. General description is a middle-aged male lying in bed in no distress. Respiratory system: Unlabored breathing, decreased breath sounds. No wheeze. Heart S1, S2. Regular rate and rhythm. Abdomen soft, no tenderness. LABS: Hemoglobin 10.7, white count 16.33, creatinine 0.55. DIAGNOSTIC IMPRESSION AND PLAN: Patient with left elbow septic olecranon bursitis with cellulitis in this patient to continue with cefazolin in view of the extensive infection will likely need a PICC line and outpatient IV antibiotics. Continue supportive care. MMODL / IJN: [id number] /
[2021-11-27] MEDS: SODIUM CHLORIDE 0.9% 1,000 ML IV SCH ×2 (01:24→08:39)
[2021-11-27] MEDS: SUCRALFATE 1 GM TAB PO SCH ×4 (08:38→21:05)
[2021-11-27] MEDS: PANTOPRAZOLE 40 MG TABLET PO SCH (08:39)
[2021-11-27] MEDS: CHOLECALCIFEROL 125 MCG (5000 IU) TABLET PO SCH (08:39)
[2021-11-27] MEDS: MAGNESIUM OXIDE 400 MG TAB PO SCH ×3 (08:39→21:05)
[2021-11-27] MEDS: THIAMINE 100 MG TAB PO SCH ×2 (08:39→16:52)
[2021-11-27] MEDS: HEPARIN SODIUM,PORCINE/PF 5,000 UNIT/0.5 ML SYRINGE SQ SCH ×2 (08:39→21:06)
[2021-11-27] MEDS: NICOTINE 21MG/24HR PATCH TRANSDERM SCH (08:39)
[2021-11-27] MEDS: SYMBICORT 160-4.5 MCG INHALER INHALATION SCH ×2 (09:56→21:24)
[2021-11-27 10:30] LABS: Basophils # (A) 0.01 X 10*3/uL (0.00-0.10); Basophils % (A) 0.1 %; Eosinophils # (A) 0.01 X 10*3/uL (0.04-0.35); Eosinophils % (A) 0.1 %; HGB 7.5 g/dL (13.0-17.0); Lymphocytes # (A) 1.35 X 10*3/uL (0.90-5.00); Lymphocytes % (A) 8.7 %; MCH 31.8 pg (27.0-32.0); MCHC 31.3 g/dL (32.0-37.0); MCV 101.7 fL (80.0-97.0); Mean Platelet Volume 9.8 fL (9.5-12.2); Monocytes # (A) 1.09 X 10*3/uL (0.20-1.00); Neutrophils # (A) 13.02 X 10*3/uL (1.80-7.70); Neutrophils % (A) 83.3 %; Platelet Count 399 X 10*3/uL (140-440); RBC 2.36 X 10*6/uL (4.40-5.60); RDW 16.2 % (11.5-14.5)
--- NOTE | 2021-11-27 10:43 | P.PN ---
Subjective Progress Note Date: 11/27/21 Principal diagnosis: Left forearm abcess and cellulitis Patient is a 56-year-old male with a past medical history of COPD, chronic alcohol abuse who is status-post repeat I&D of left septic olecranon bursa and multiloculated forearm abscess with application of wound VAC on 11/26/20. Today's post-operative day #1. The patient is seen and examined bedside. He has surgical pain as expected. He has no new complaints. His left upper extremity is currently dressed with a wound VAC and dressing. Objective - Vital Signs Vital signs: Vital Signs Temp 98.4 F 11/27/21 07:54 Pulse 91 11/27/21 07:54 Resp 18 11/27/21 07:54 BP 149/80 11/27/21 07:54 Pulse Ox 96 11/27/21 07:54 Intake & Output 11/26/21 11/27/21 11/27/21 18:59 06:59 18:59 Intake Total 3560 Output Total 1310 1250 Balance 2250 -1250 Weight 79.379 kg Intake: IV 1100 Intake, IV Titration 1300 Amount Sodium Chloride 0.9% 1, 1000 000 ml @ 75 mls/hr IV . [id number] HERIBERTO Rx#:[id number] Vancomycin 1,500 mg In 250 Sodium Chloride 0.9% 250 ml @ 125 mls/hr IVPB Q8H HERIBERTO Rx#:[id number] ceFAZolin 2 gm In Sodium 50 Chloride 0.9% 50 ml @ 100 mls/hr IVPB Q8HR HERIBERTO Rx# :[id number] Oral 1160 Output: Urine 1300 1250 Estimated Blood Loss 10 Other: Voiding Method External Catheter External Catheter External Catheter # Voids 1 # Bowel Movements 0 - Exam On examination, the patient is sitting up in bed in no apparent distress. He is alert and oriented 3. On inspection of the left upper extremity, extremity is dressed with an Fco wrap and an underlying wound VAC. This dressing is not removed. The hand appears warm and well-perfused with brisk capillary refill of the fingers. He is able to move his fingers appropriately. - Constitutional General appearance: Present: no acute distress - Labs CBC & Chem 7: 11/27/21 04:34 11/26/21 04:06 Labs: Abnormal Lab Results - Last 24 Hours (Table) 11/27/21 Range/Units 04:34 WBC 15.60 H (4.50-10.00) X 10*3/uL RBC 2.36 L (4.40-5.60) X 10*6/uL Hgb 7.5 L (13.0-17.0) g/dL Hct 24.0 L (39.6-50.0) % MCV 101.7 H (80.0-97.0) fL MCHC 31.3 L (32.0-37.0) g/dL RDW 16.2 H (11.5-14.5) % Immature Gran # 0.12 H (0.00-0.04) X 10*3/uL Neutrophils # 13.02 H (1.80-7.70) X 10*3/uL Monocytes # 1.09 H (0.20-1.00) X 10*3/uL Eosinophils # 0.01 L (0.04-0.35) X 10*3/uL Microbiology - Last 24 Hours (Table) 11/24/21 14:41 Anaerobic Culture - Preliminary Elbow - Left 11/24/21 14:41 Anaerobic Culture - Preliminary Elbow - Left 11/24/21 14:41 Anaerobic Culture - Preliminary Elbow - Left 11/24/21 14:41 Anaerobic Culture - Preliminary Elbow - Left 11/24/21 14:41 Gram Stain - Final Elbow - Left Wound Culture - Final Staphylococcus aureus 11/24/21 14:41 Gram Stain - Final Elbow - Left Tissue Culture - Final Staphylococcus aureus 11/24/21 14:41 Gram Stain - Final Elbow - Left Wound Culture - Final Staphylococcus aureus 11/24/21 14:41 Gram Stain - Final Elbow - Left Wound Culture - Final Staphylococcus aureus 11/22/21 11:30 Anaerobic Culture - Final Arm - Left Assessment and Plan (1) Cellulitis of arm, left Narrative/Plan: We will keep the wound VAC in place for an additional 24 hours. We will plan to remove the wound VAC tomorrow morning and assess his elbow and forearm. - Continue IV antibiotics under the discretion of Dr. Yu. We will continue to follow intraoperative cultures closely. - Pain management as needed. Current Visit: Yes Status: Acute Code(s): L03.114 - CELLULITIS OF LEFT UPPER LIMB SNOMED Code(s): 049602168 (2) Abscess of left arm Current Visit: Yes Status: Acute Code(s): L02.414 - CUTANEOUS ABSCESS OF LEFT UPPER LIMB SNOMED Code(s): 88335231062874479 Time with Patient: Less than 30
[2021-11-27 11:37] LABS: African American GFR (CKD) 131.2 (60.0-200.0); Anion Gap 10.7 mmol/L (10.00-18.00); BUN/Creat Ratio 19.83 Ratio (12.00-20.00); Blood Urea Nitrogen 11.9 mg/dL (9.0-27.0); Calcium 8.3 mg/dL (8.7-10.3); Carbon Dioxide 21.3 mmol/L (20.0-27.5); Non-African American GFR(CKD) 113.2 (60.0-200.0); Potassium 4.3 mmol/L (3.5-5.5)
[2021-11-27] MEDS: MULTIVITAMINS, THERA 1 EACH TAB PO SCH (12:12)
[2021-11-27] MEDS: FOLIC ACID 1 MG TAB PO SCH (12:12)
[2021-11-27] MEDS ORDERED: HYDROmorphone 0.5 MG/0.5 ML SYRINGE IVP PRN (13:13)
--- NOTE | 2021-11-27 13:46 | XR ---
EXAMINATION TYPE: XR chest 1V DATE OF EXAM: 11/27/2021 COMPARISON: 11/18/2021 INDICATION: Cough TECHNIQUE: Single frontal view of the chest is obtained. FINDINGS: The heart size is normal. The pulmonary vasculature is prominent. Linear opacities at the right base. Correlate for atelectasis. Diffuse scattered infiltrate is presen t bilaterally. This is nonspecific but can be compatible with atypical pneumonia. IMPRESSION: 1. Scattered mild infiltrates, correlate for atypical pneumonia. 2. Some platelike atelectasis may be at the right lung base.
[2021-11-27] MEDS ORDERED: IPRATROPIUM-ALBUTEROL 3 ML NEB INHALATION PRN (17:17)
[2021-11-27] MEDS: FUROSEMIDE 10 MG/ML 4 ML VIAL IV SCH (17:54)
--- NOTE | 2021-11-27 18:52 | PN ---
PROGRESS NOTE DATE OF SERVICE: 11/27/2021 This 56-year-old gentleman who was admitted with acute cellulitis, multiple abscesses, being closely monitored at this time. No chest pain. No palpitations. The patient is complaining of severe pain at this time. The cultures growing mostly MSSA. No chest pain. No palpitations. No fever. The patient is mildly confused. PHYSICAL EXAMINATION: Pulse 95, blood pressure 130/80, respiration 18, temperature 98.4, pulse ox 98% on 3 L. HEENT: Conjunctivae normal. Neck: No JVD. Cardiovascular: S1, S2 muffled. Respirations: Breath sounds diminished in the bases. No rhonchi. Abdomen: Soft. Left upper arm, status post surgery. LABS: WBC is 15.6, hemoglobin 7.5, sodium 130. ASSESSMENT: 1. Acute cellulitis with multiple abscesses including the left olecranon septic bursa, left multilobar forearm abscess status post incision and drainage x2 with sepsis present on admission. 2. Change in mental status acute metabolic encephalopathy secondary to sepsis, multifactorial, present on admission. 3. Anemia, possibly acute on chronic blood-loss anemia, symptomatic. 4. Left rotator cuff tear. 5. History of nicotine dependence. 6. Poor social support. 7. Gait dysfunction. 8. History of EtOH abuse. 9. History of chronic obstructive pulmonary disease/asthma not in exacerbation. 10.History of seizure disorder. 11.Anxiety/depression. 12.Hyponatremia. 13.Hypokalemia, severe. 14.Elevated CRP. 15.Elevated WBC. 16.Anemia, macrocytic. 17.Gait dysfunction. 18.FULL CODE. RECOMMENDATIONS AND DISCUSSION: Continue current medications, antibiotics. PT/OT evaluation. Otherwise, adjust the pain medications. Discussed with the patient. Discussed with staff. 1 unit transfusion. Guarded prognosis. Further recommendations to follow. MMODL / IJN: [id number] /
[2021-11-27] MEDS: IPRATROPIUM-ALBUTEROL 3 ML NEB INHALATION SCH (21:24)
--- NOTE | 2021-11-27 22:40 | PN ---
PROGRESS NOTE DATE OF SERVICE: 11/27/2021 REASON FOR FOLLOWUP: Left elbow septic olecranon bursitis. INTERVAL HISTORY: The patient is afebrile. The patient is breathing comfortably. The patient's pain to the left elbow is currently controlled. No chest pain, shortness of breath or cough. No abdominal pain or diarrhea. PHYSICAL EXAMINATION: Blood pressure 131/82 with a pulse of 95, temperature 98.5. He is 98% on 3 L nasal cannula. General description is a middle-aged male lying in bed in no distress. Respiratory system: Unlabored breathing. Clear to auscultation anteriorly. Heart S1, S2. Regular rate and rhythm. Abdomen soft, no tenderness. LABS: Hemoglobin is 7.5, white count 15.6, creatinine 0.60. DIAGNOSTIC IMPRESSION AND PLAN: 1. Patient with left elbow septic olecranon bursitis and abscess, status post debridement and application of wound V.A.C. Patient is covered with cefazolin. 2. Patient did have elevated white count; could be related to the the patient has, for which Vascular Surgery has been following the patient. Continue with supportive care. MMODL / IJN: [id number] /
[2021-11-28] MEDS: HYDROcodone/APAP 5-325MG 1 EACH TAB PO PRN ×4 (00:43→20:09)
[2021-11-28] MEDS: FUROSEMIDE 10 MG/ML 4 ML VIAL IV SCH ×2 (05:27→17:38)
[2021-11-28 05:36] LABS: African American GFR (CKD) >90 (>60 ml/min/1.73 sqM); Anion Gap 9 mmol/L; Blood Urea Nitrogen 11 mg/dL (9-20); Calcium 8.5 mg/dL (8.4-10.2); Carbon Dioxide 22 mmol/L (22-30); Chloride 99 mmol/L (98-107); Glucose 96 mg/dL (74-99); Non-African American GFR(CKD) >90 (>60 ml/min/1.73 sqM); Potassium 4.2 mmol/L (3.5-5.1); Sodium 130 mmol/L (137-145)
[2021-11-28] MEDS: SYMBICORT 160-4.5 MCG INHALER INHALATION SCH ×2 (07:29→20:41)
[2021-11-28] MEDS: NICOTINE 21MG/24HR PATCH TRANSDERM SCH (07:32)
[2021-11-28] MEDS: PANTOPRAZOLE 40 MG TABLET PO SCH (07:33)
[2021-11-28] MEDS: HEPARIN SODIUM,PORCINE/PF 5,000 UNIT/0.5 ML SYRINGE SQ SCH ×2 (07:33→20:10)
[2021-11-28] MEDS: CHOLECALCIFEROL 125 MCG (5000 IU) TABLET PO SCH (07:33)
[2021-11-28] MEDS: THIAMINE 100 MG TAB PO SCH ×2 (07:33→17:38)
[2021-11-28] MEDS: SUCRALFATE 1 GM TAB PO SCH ×4 (07:33→20:10)
[2021-11-28] MEDS: MAGNESIUM OXIDE 400 MG TAB PO SCH ×3 (07:33→20:09)
[2021-11-28] MEDS: IPRATROPIUM-ALBUTEROL 3 ML NEB INHALATION SCH ×3 (08:19→20:41)
[2021-11-28 09:31] LABS: Basophils # (A) 0.02 X 10*3/uL (0.00-0.10); Basophils % (A) 0.2 %; Eosinophils % (A) 0.8 %; HGB 8.9 g/dL (13.0-17.0); Lymphocytes # (A) 2.45 X 10*3/uL (0.90-5.00); Lymphocytes % (A) 19.1 %; MCH 31.8 pg (27.0-32.0); MCHC 29.7 g/dL (32.0-37.0); MCV 107.1 fL (80.0-97.0); Mean Platelet Volume 9.6 fL (9.5-12.2); Monocytes # (A) 1.55 X 10*3/uL (0.20-1.00); Monocytes % (A) 12.1 %; Neutrophils # (A) 8.61 X 10*3/uL (1.80-7.70); Platelet Count 446 X 10*3/uL (140-440); RDW 16.2 % (11.5-14.5); WBC 12.83 X 10*3/uL (4.50-10.00)
[2021-11-28] MEDS: MULTIVITAMINS, THERA 1 EACH TAB PO SCH (11:31)
[2021-11-28] MEDS: FOLIC ACID 1 MG TAB PO SCH (11:31)
--- NOTE | 2021-11-28 12:06 | P.PN ---
Subjective Progress Note Date: 11/28/21 This patient is a 56-year-old male with a past medical history of COPD, chronic alcohol abuse who is status-post repeat I&D left septic olecranon bursa and multiloculated forearm abscess with application of wound VAC on 11/26/20, prior I&D was 11/24/21. Today's post-operative day #2. The patient is seen and examined bedside. He states his left elbow is mildly sore. He has no new complaints. He denies feve rs, nausea, vomiting. Vital signs stable. Objective - Vital Signs Vital signs: Vital Signs Temp 98.2 F 11/28/21 07:00 Pulse 80 11/28/21 11:14 Resp 16 11/28/21 07:00 BP 160/97 11/28/21 07:00 Pulse Ox 96 11/28/21 07:00 Intake & Output 11/27/21 11/28/21 11/28/21 18:59 06:59 18:59 Intake Total 310 Output Total 1700 4050 Balance -1700 -3740 Intake: Blood Product 310 Rc As-1 Unit 310 [id number] Output: Urine 1700 4050 Other: Voiding Method External Catheter External Catheter External Catheter # Bowel Movements 0 - Exam On examination, the patient is sitting up in bed in no apparent distress. He is alert and oriented 3. On inspection of the left upper extremity, extremity is dressed with an Fco wrap and an underlying wound VAC. Wound VAC is removed bedside today and reveals a healthy-appearing wound at the posterior elbow with early granulation along with healing incision with intact nylon sutures distally. No purulence noted. Minimal erythema. Motor and sensory function is intact of the left upper extremity. Left upper extremity is warm and well perfused with brisk capillary refill distally. - Labs CBC & Chem 7: 11/28/21 04:13 11/28/21 04:13 Labs: Abnormal Lab Results - Last 24 Hours (Table) 11/25/21 11/28/21 11/28/21 Range/Units 11:45 04:13 04:13 WBC 12.83 H (4.50-10.00) X 10*3/uL RBC 2.80 L (4.40-5.60) X 10*6/uL Hgb 8.9 L (13.0-17.0) g/dL Hct 30.0 L (39.6-50.0) % MCV 107.1 H (80.0-97.0) fL MCHC 29.7 L (32.0-37.0) g/dL RDW 16.2 H (11.5-14.5) % Plt Count 446 H (140-440) X 10*3/uL Absolute Nucleated RBC 0.02 H (0.00-0.00) X 10*3/uL Immature Gran # 0.10 H (0.00-0.04) X 10*3/uL Neutrophils # 8.61 H (1.80-7.70) X 10*3/uL Monocytes # 1.55 H (0.20-1.00) X 10*3/uL NRBC/100 WBC Diff 0.2 H (0.0-0.0) /100 WBCS Sodium 130 L (137-145) mmol/L Creatinine 0.57 L (0.66-1.25) mg/dL Crossmatch See Detail Microbiology - Last 24 Hours (Table) 11/23/21 15:04 Anaerobic Culture - Final Other - Other Assessment and Plan Assessment: Status-post repeat I&D of left septic olecranon bursa and multiloculated forearm abscess with application of wound VAC on 11/26/20. Plan: - Wound vac was removed from left elbow today. A new dry dressing was placed. Will defer further wound care to Dr. Yu. - Continue IV antibiotics under the discretion of Dr. Yu. Intraoperative cultures show staph aureus. - Pain management as needed. - Would recommend wound care consult for right elbow. - Recommend vascular surgery consultation for bilateral toe ulcerations.
[2021-11-28 13:34] LABS: Prothrombin Time 10.7 sec (9.0-12.0)
[2021-11-28 14:59] VITALS: BMI 25.1
--- NOTE | 2021-11-28 17:33 | PN ---
PROGRESS NOTE DATE OF SERVICE: 11/28/2021 This 56-year-old gentleman who was admitted with acute cellulitis and multiple abscesses, including left olecranon septic bursitis, had multiple surgeries, extensive debridement by Dr. Corrales. No chest pain. No palpitations. The patient has improved significantly. The most recent chest x-ray which was done which I personally reviewed showed some minimal bilateral shadows also. Past medical history reviewed. REVIEW OF SYSTEMS: CARDIOVASCULAR SYSTEM: No angina. RESPIRATION: As mentioned earlier. GI: As mentioned earlier. : No dysuria. NERVOUS SYSTEM: No numbness, weakness. CURRENT MEDICATIONS: Reviewed. They include Tylenol, [place], Ventolin, DuoNeb, Symbicort, BuSpar. Doses and other medications are reviewed. PHYSICAL EXAMINATION: Patient is alert, oriented x2. Pulse 94, blood pressure 130/81, respiration 18, temperature 98.2, pulse ox 94% on room air. HEENT: Conjunctivae normal. NECK: No jugular venous distention. CARDIOVASCULAR: S1, S2 muffled. RESPIRATION: Breath sounds diminished at the bases. A few scattered rhonchi. ABDOMEN: Soft, nontender. NERVOUS SYSTEM: No focal deficit. LAB STUDIES: WBC 12.3, hemoglobin 8.9, sodium 130. ASSESSMENT: 1. Acute cellulitis with multiple abscesses, including left olecranon septic bursitis, left forearm abscess, status post incision and drainage x2 with sepsis, present on admission. 2. Change in mental status, acute metabolic encephalopathy secondary to sepsis, multifactorial, present on admission. 3. Anemia, possibly acute on chronic blood-loss anemia, symptomatic. 4. Left rotator cuff tear. 5. History of nicotine dependence. 6. Status post blood transfusion. 7. Poor social support. 8. Gait dysfunction. 9. History of ETOH abuse. 10.History of chronic obstructive pulmonary disease, asthma, acute exacerbation. 11.History of seizure disorder. 12.Anxiety, depression. 13.Hyponatremia. 14.Hypokalemia, severe. 15.Elevated CRP. 16.Elevated white count. 17.Anemia, macrocytic. 18.Gait dysfunction. 19.FULL CODE. RECOMMENDATIONS AND DISCUSSION: I recommend to continue current medications, continue with the monitoring, symptomatic treatment. Patient has multiple complex medical issues, as listed above. The patient received one unit transfusion, which probably helped to elevate some of the symptoms. Otherwise, will continue to monitor. Chest x-ray reviewed. Closely follow with multiple consultants. Possible PICC line and IV antibiotics, ECF rehab. Otherwise, awaiting further recommendations from Dr. Corrales regarding any further treatment. Continue the wound V.A.C. per Orthopedic Surgery. Guarded prognosis. Further recommendations to follow. MMODL / IJN: [id number] / MTDD
--- NOTE | 2021-11-28 22:17 | PN ---
PROGRESS NOTE DATE OF SERVICE: 11/28/2021 REASON FOR FOLLOWUP: Left elbow septic olecranon bursitis, MSSA. INTERVAL HISTORY: The patient is afebrile. The patient is breathing comfortably. Pain to the left elbow is currently controlled. No chest pain, shortness of breath or cough. No abdominal pain or diarrhea. PHYSICAL EXAMINATION: Blood pressure 130/81 with a pulse of 94, temperature 98.1. He is 95% on room air. General description is a middle-aged male lying in bed in no distress. Respiratory system: Unlabored breathing, clear to auscultation anteriorly. Heart S1, S2. Regular rate and rhythm. Abdomen soft, no tenderness. Left elbow is currently dressed. No obvious drainage on the dressing. LABORATORY STUDIES: Hemoglobin 8.9, white count 12.83, creatinine 0.57. DIAGNOSTIC IMPRESSION AND PLAN: Patient with left elbow septic olecranon bursitis, MSSA, status post debridement. Patient has clinically responded to the cefazolin. Waiting for the PICC line outpatient IV antibiotic arrangement. Close outpatient followup. MMODL / IJN: [id number] /
[2021-11-29] MEDS: FUROSEMIDE 10 MG/ML 4 ML VIAL IV SCH ×2 (05:15→16:16)
[2021-11-29] MEDS: NICOTINE 21MG/24HR PATCH TRANSDERM SCH (07:08)
[2021-11-29] MEDS: CHOLECALCIFEROL 125 MCG (5000 IU) TABLET PO SCH (07:14)
[2021-11-29] MEDS: PANTOPRAZOLE 40 MG TABLET PO SCH (07:14)
[2021-11-29] MEDS: SUCRALFATE 1 GM TAB PO SCH ×4 (07:14→22:25)
[2021-11-29] MEDS: THIAMINE 100 MG TAB PO SCH ×2 (07:14→16:16)
[2021-11-29] MEDS: HEPARIN SODIUM,PORCINE/PF 5,000 UNIT/0.5 ML SYRINGE SQ SCH ×2 (07:15→21:15)
[2021-11-29] MEDS: MAGNESIUM OXIDE 400 MG TAB PO SCH ×3 (07:15→21:15)
[2021-11-29] MEDS: SYMBICORT 160-4.5 MCG INHALER INHALATION SCH ×2 (09:49→21:13)
[2021-11-29] MEDS: IPRATROPIUM-ALBUTEROL 3 ML NEB INHALATION SCH ×3 (09:49→21:13)
[2021-11-29] MEDS ORDERED: LACTATED RINGERS 1,000 ML IV ONE ×2 (10:43)
[2021-11-29] MEDS ORDERED: ONDANSETRON 4 MG/2 ML VIAL IVP ONE (11:00)
--- NOTE | 2021-11-29 11:19 | P.PN ---
Progress Note - Text Progress Note Date: 11/29/21 Patient with open draining wound over right elbow. He has failed to improve with wound care and IV antibiotics. I recommended debriding the olecranon bursa and placing a wound VAC in the OR today. We discussed the risks and benefits of surgery. He understand and wishes to proceed.
[2021-11-29] MEDS ORDERED: LIDOCAINE 1% INJ 10MG/ML (20 ML MDV) ONE (11:23)
[2021-11-29] MEDS ORDERED: fentaNYL (PF) 50 MCG/ML 2 ML AMP ONE (11:23)
[2021-11-29] MEDS ORDERED: KETAMINE 10 MG/ML 20 ML VIAL ONE (11:23)
[2021-11-29] MEDS ORDERED: MIDAZOLAM 2 MG/2 ML VIAL ONE (11:23)
[2021-11-29] MEDS ORDERED: PROPOFOL 10 MG/ML 20 ML VIAL IV ONE (11:23)
[2021-11-29] MEDS: MULTIVITAMINS, THERA 1 EACH TAB PO SCH (11:33)
[2021-11-29] MEDS: FOLIC ACID 1 MG TAB PO SCH (11:33)
--- NOTE | 2021-11-29 12:07 | P.OP ---
Date of Procedure: 11/29/21 Preoperative Diagnosis: 1. Right infected and draining olecranon bursa 2. Left infected olecranon bursa and forearm abscess status post multiple operative debridements 3. Chronic alcoholic drinking one fifth of alcohol a day 4. Cigarette smoker 5. Since institutionalization in prison 6. Multiple necrotic wounds of her bilateral toes Postoperative Diagnosis: Same Procedure(s) Performed: 1. Irrigation and debridement of right elbow olecranon bursa (An excisional debridement using a scalpel of nonviable skin, subcu tissue and bursal tissue down to the level of fascia was performed) 2. Application of negative pressure wound VAC, right elbow Anesthesia: CHARLY Surgeon: Chcoo Corrales [employer] House Supervisor #1: Deb Feng Estimated Blood Loss (ml): 10 Pathology: other (deep tissue cultures) Condition: stable Disposition: PACU Indications for Procedure: The patient is very pleasant 56-year-old male with multiple medical problems including multiple nonhealing wounds, chronic alcohol abuse, chronic cigarette smoking and recent institutionalization that has an open draining wound over his olecranon bursa. This failed to improve with IV antibiotics and wound care. I recommended operative debridement. We discussed potential risks and application of surgery of which the patient is well aware. He provided his verbal and written consent to go forward with surgery. Operative Findings: There was a chronic open draining wound over the right olecranon bursa. Description of Procedure: The patient was identified in preoperative holding and the correct right arm was marked with my initials. I reviewed the consent form with the patient and his questions were answered. The patient was then brought back to the operating room. While still in his hospital bed a general anesthetic and antibiotics were given. Nonsterile drapes were placed around the right arm. The right arm was then prepped and draped in the standard sterile fashion. Prior to starting surgery timeout was performed identifying the correct patient, operative extremity, and procedure. I began by outlining and making a longitudinal ellipse directly over the open draining wound and extending the marking both proximally and distally. Skin incision was made with a scalpel and dissection was carried down through subcu tissues tissue into the bursa. The bursal tissues chronically inflamed and appeared infected. An extensive bursectomy was then performed utilizing a scalpel to perform an excisional debridement of all nonviable tissue. All nonviable skin, subcutaneous tissue, and bursal tissue was debrided until I was down to healthy-appearing tissue throughout the wound. 3 L of sterile saline using cystoscopy tubing was then irrigated through the wound. A wound VAC was applied over the wound and hooked up to suction 125 mmHg. There is a good seal. Web roll and Fco wrap was applied over the right arm. The patient was then awoken from his anesthetic and brought to recovery having tolerated the procedu re well. Deb Feng PA-C was required as a skilled cafe assistant. PLAN: An extensive bursectomy was performed and the wound appeared clean. I would like to leave the wound VAC on for 48 hours. After 48 hours our service will change the dressing and then turned the wound over to Dr. Yu with wound care. He will also need IV antibiotics. Both the patient and his family have asked about management of the necrotic wounds on his toes. He has multiple necrotic wounds which were evaluated in the operating room. This is not something I manage. I would recommend management of this either by Dr. Yu, a wound care consult, re-consulting vascular surgery, or obtaining a podiatry consult.
[2021-11-29] MEDS: HYDROcodone/APAP 5-325MG 1 EACH TAB PO PRN ×2 (16:16→22:25)
--- NOTE | 2021-11-29 16:31 | PN ---
PROGRESS NOTE DATE OF SERVICE: 11/29/2021 This 56-year-old gentleman who was admitted with acute cellulitis, multiple abscesses, had a repeat surgery by Dr. Corrales today. The patient had extensive multiple complex lesions on the left elbow, which is being wound VAC. The patient's sensorium has improved significantly. No chest pain. No palpitation. PHYSICAL EXAMINATION: Alert and oriented times three. Pulse 105, blood pressure 103/74, respiration 17, temperature is normal. Pulse ox 92% on 2 L. HEENT: Conjunctivae normal. Neck: No JVD. Cardiovascular: S1, S2 muffled. Respiration: Scattered rhonchi. Abdomen: Soft. Nervous system: Exam shows left elbow status post surgery. LABS: WBC 20.83, hemoglobin 8.9, sodium 130. ASSESSMENT: 1. Acute cellulitis with multiple abscesses, including left olecranon septic bursitis, left forearm abscess, status post incision and drainage x2 with sepsis, present on admission. 2. Change in mental status, acute metabolic encephalopathy secondary to sepsis, multifactorial, present on admission. 3. Anemia, possibly acute on chronic blood-loss anemia, symptomatic. 4. Status post transfusion. 5. Left rotator cuff tear. 6. History of nicotine dependence. 7. Status post blood transfusion. 8. Poor social support. 9. Gait dysfunction. 10.History of EtOH abuse. 11.History of chronic obstructive pulmonary disease, asthma, acute exacerbation. 12.History of seizure disorder. 13.Anxiety, depression. 14.Hyponatremia. 15.Hypokalemia, severe. 16.Elevated CRP. 17.Elevated WBC. 18.Anemia, macrocytic. 19.Gait dysfunction. 20.FULL CODE. RECOMMENDATIONS AND DISCUSSION: I recommend to continue current medications, symptomatic treatment. Otherwise, at this time, I would recommend continue with antibiotics. Otherwise, closely follow with surgery. Guarded prognosis because of multiple complex medical issues. Further recommendations to follow. See orders for details. MMODL / IJN: [id number] /
--- NOTE | 2021-11-29 23:28 | PN ---
PROGRESS NOTE DATE OF SERVICE: 11/29/2021 REASON FOR FOLLOWUP: Left elbow olecranon bursitis septic MSSA. INTERVAL HISTORY: Patient is afebrile. The patient was taken to the OR and is status post right . Patient tolerated the procedure. Denies having any chest pain, shortness of breath or cough. No nausea, vomiting. No abdominal pain. No diarrhea. PHYSICAL EXAMINATION: Blood pressure 128/79, pulse of 87, temperature 98.5. He is 96% on room air. General description is a middle-aged male lying in bed in no distress. Respiratory system: Unlabored breathing. Clear to auscultation anteriorly. Heart S1, S2. Regular rate and rhythm. Abdomen: Soft. No tenderness. was currently dressed. No obvious drainage on the dressing. LABS: No new labs been obtained today. DIAGNOSTIC IMPRESSION AND PLAN: Patient with left elbow olecranon bursitis septic with cellulitis and abscess of the left upper extremity in this patient who seems to have shown slow clinical improvement. The patient is currently covered with cefazolin 2 grams q.8 hours to continue for another 2 weeks and close outpatient followup. Continue supportive care. MMODL / IJN: [id number] /
[2021-11-30] MEDS: FUROSEMIDE 10 MG/ML 4 ML VIAL IV SCH ×2 (05:24→17:50)
[2021-11-30] MEDS: HEPARIN SODIUM,PORCINE/PF 5,000 UNIT/0.5 ML SYRINGE SQ SCH ×2 (06:46→19:51)
[2021-11-30] MEDS: SYMBICORT 160-4.5 MCG INHALER INHALATION SCH ×2 (07:23→19:31)
[2021-11-30] MEDS: IPRATROPIUM-ALBUTEROL 3 ML NEB INHALATION SCH ×3 (07:23→19:31)
[2021-11-30 08:27] VITALS: RESP 18
[2021-11-30] MEDS ORDERED: LIDOCAINE 1% INJ 10MG/ML (20 ML MDV) ONE (08:32)
[2021-11-30] MEDS ORDERED: LIDOCAINE 1% INJ 10MG/ML (20 ML MDV) SQ ONE (08:48)
[2021-11-30] MEDS: CHOLECALCIFEROL 125 MCG (5000 IU) TABLET PO SCH (09:36)
[2021-11-30] MEDS: PANTOPRAZOLE 40 MG TABLET PO SCH (09:36)
[2021-11-30] MEDS: THIAMINE 100 MG TAB PO SCH ×2 (09:36→17:51)
[2021-11-30] MEDS: NICOTINE 21MG/24HR PATCH TRANSDERM SCH (09:36)
[2021-11-30] MEDS: SUCRALFATE 1 GM TAB PO SCH ×4 (09:36→19:51)
[2021-11-30] MEDS: MAGNESIUM OXIDE 400 MG TAB PO SCH ×3 (09:36→19:51)
[2021-11-30] MEDS: HYDROcodone/APAP 5-325MG 1 EACH TAB PO PRN ×3 (09:41→21:45)
--- NOTE | 2021-11-30 10:26 | IR ---
PICC LINE PLACEMENT: HISTORY: Infection requiring long-term antibiotic therapy PROCEDURE: Ultrasound and fluoroscopic guidance of PICC line placement. COMPLICATIONS: None ANESTHESIA: 1. 1% Lidocaine locally. FINDINGS/TECHNIQUE: The procedure was explained to the patient. The risks, complications, benefits and alternatives were discussed and any questions were answered. Informed consent was obtained. The patient was placed supine on the fluoroscopic table and prepped and draped in the usual sterile fash ion. Utilizing a 21 gauge needle and sonographic and fluoroscopic guidance, access in the left basi lic vein was achieved and there is placement of a 0.018 guidewire. The vein is patent. A 4-F sheath was placed over the guidewire. The guidewire and dilator were removed and a 4-F. PICC line was plac ed through the sheath with the tip at the level of the SVC. The sheath was removed, the catheter was flushed and sutured into position. The patient was stable throughout the procedure and remained sta ble upon discharge from the Department of Radiology. The vein puncture was patent under ultrasound. A mayer scale image was obtained to document patency of the vein punctured. All elements of the maximal barrier technique were utilized. FLUOROSCOPY TIME: 0.2 minutes and 1 minute submitted IMPRESSION: Successful PICC line placement under ultrasound and fluoroscopic guidance.
--- NOTE | 2021-11-30 12:34 | PN ---
PROGRESS NOTE DATE OF SERVICE: 11/30/2021 REASON FOR FOLLOWUP: Left elbow septic olecranon bursitis and MSSA. INTERVAL HISTORY: The patient is afebrile. The patient is breathing comfortably. Denies having any chest pain, shortness of breath, cough or abdominal pain. The patient is to the elbow is currently controlled. PHYSICAL EXAMINATION: Blood pressure 131/70 with a pulse of 94, temperature 98.4. He is 95% on 3 L nasal cannula. General description is a middle-aged male lying in bed in no distress. Respiratory system: Unlabored breathing, clear to auscultation anteriorly. Heart S1, S2. Regular rate and rhythm. Abdomen soft, no tenderness. LABS: No new labs have been obtained today. DIAGNOSTIC IMPRESSION AND PLAN: Patient with left elbow olecranon bursitis septic with cellulitis and abscess. Culture with MSSA. Blood culture negative. In view of extensive infection, patient to continue with cefazolin 2 g for 2 weeks and close outpatient followup. Continue supportive care. MMODL / IJN: [id number] /
[2021-11-30] MEDS: MULTIVITAMINS, THERA 1 EACH TAB PO SCH (12:38)
[2021-11-30] MEDS: ACETAMINOPHEN TAB 325 MG TAB PO PRN ×2 (12:38→19:50)
[2021-11-30] MEDS: FOLIC ACID 1 MG TAB PO SCH (12:39)
--- NOTE | 2021-11-30 17:04 | P.PN ---
Subjective Progress Note Date: 11/30/21 This patient is a 56-year-old male with a past medical history of COPD, chronic alcohol abuse who is status-post repeat I&D left septic olecranon bursa and multiloculated forearm abscess with application of wound VAC on 11/26/20, prior I&D was 11/24/21. He is also status-post right elbow I&D olecranon bursa on 11/29/20. Today's post-operative day #1. He is seen and examined beside. PICC line was placed today. He has a wound vac in place right elbow. Dr. Yu is managing wound care to left elbow. No new complaints. Vital signs stable. Objective - Vital Signs Vital signs: Vital Signs Temp 99.0 F 11/30/21 14:00 Pulse 86 11/30/21 11:12 Resp 18 11/30/21 14:00 BP 136/81 11/30/21 14:00 Pulse Ox 95 11/30/21 14:00 Intake & Output 11/29/21 11/30/21 11/30/21 18:59 06:59 18:59 Intake Total 220 Output Total 5 1350 Balance 215 -1350 Intake: IV 220 Output: Urine 1350 Estimated Blood Loss 5 Other: Voiding Method Urinal Urinal # Voids 4 4 - Exam On examination, the patient is sitting up in bed in no apparent distress. He is alert and oriented 3. On inspection of the left upper extremity, extremity is dressed with an Fco wrap. Motor and sensory function is intact of the left upper extremity. Left upper extremity is warm and well perfused with brisk capillary refill distally. On inspection of the right elbow, wound VAC is in place. Motor and sensory function is intact of the right upper extremity. Right upper extremity is warm and well perfused with brisk capillary refill distally. - Labs CBC & Chem 7: 11/28/21 04:13 11/28/21 04:13 Labs: Microbiology - Last 24 Hours (Table) 11/29/21 11:47 Gram Stain - Preliminary Elbow - Right Tissue Culture - Preliminary 11/29/21 11:47 Anaerobic Culture - Preliminary Elbow - Right Assessment and Plan Assessment: Status-post repeat I&D of left septic olecranon bursa and multiloculated forearm abscess with application of wound VAC on 11/26/20. He is also status-post right elbow I&D olecranon bursa on 11/29/20. Plan: - Keep wound vac was removed from right elbow today. Will plan to remove tomorrow. Will defer further wound care to Dr. Yu. - Continue IV antibiotics under the discretion of Dr. Yu. Intraoperative cultures show staph aureus. - Pain management as needed. - Recommend vascular surgery consultation for bilateral toe ulcerations. - We will follow patient closely.
--- NOTE | 2021-11-30 17:50 | PN ---
PROGRESS NOTE DATE OF SERVICE: 11/30/2021 This 56-year-old gentleman who was admitted with acute cellulitis with multiple abscesses, had surgery by Dr. Corrales. The patient is being closely monitored. The cultures are showing mostly MSSA. No chest pain. No palpitations. No fever. PHYSICAL EXAMINATION: Alert and oriented x3. Pulse is 70, blood pressure is 136/81, respiration 18, temperature 98 degrees, pulse ox 94% on 2 L. HEENT: Conjunctivae normal. Oral mucosa moist. NECK: No jugular venous distention. No lymph node enlargement. CARDIOVASCULAR: S1, S2, muffled. No S3, no S4, RESPIRATORY: Diminished breath sounds at the bases. A few scattered rhonchi and crackles. ABDOMEN: Soft, nontender. LEGS: No edema, no swelling. NERVOUS SYSTEM: No focal deficits. LABS: WBC 12.7, hemoglobin is 8.9, sodium 130. ASSESSMENT: 1. Acute cellulitis and multiple abscesses, including left olecranon septic bursa, left arm abscess status post incision and drainage x2, sepsis present on admission. 2. Irrigation and debridement of the right elbow olecranon bursa and status post wound VAC. 3. Change in mental status, acute metabolic encephalopathy secondary to sepsis, multifactorial, present on admission. 4. Anemia, possibly acute on chronic blood-loss anemia, symptomatic, status post transfusion. 5. Left rotator cuff tear. 6. History of nicotine dependence. 7. Status post blood transfusion. 8. Poor social support. 9. Gait dysfunction. 10.History of ETOH abuse. 11.History of COPD, asthma acute exacerbation. 12.History of seizure disorder. 13.History of anxiety, depression. 14.Hyponatremia. 15.Hypokalemia, severe. 16.Elevated CRP. 17.Elevated WBC. 18.Anemia, macrocytic. 19.Gait dysfunction. 20.FULL CODE. RECOMMENDATIONS AND DISCUSSION: I recommend to continue current management and symptomatic treatment. Otherwise, at this time, continue the antibiotics. Closely follow with Orthopedic Surgery. Prognosis guarded. The patient will require ECF rehab once the patient is cleared by Orthopedic Surgery and Infectious Disease. Cultures are noted. MSSA has been grown. Further recommendation to follow. MMODL / IJN: [id number] /
[2021-12-01] MEDS: HYDROcodone/APAP 5-325MG 1 EACH TAB PO PRN ×3 (02:30→16:31)
[2021-12-01] MEDS: FUROSEMIDE 10 MG/ML 4 ML VIAL IV SCH (05:03)
[2021-12-01] MEDS: IPRATROPIUM-ALBUTEROL 3 ML NEB INHALATION SCH ×2 (07:33→12:54)
[2021-12-01] MEDS: SYMBICORT 160-4.5 MCG INHALER INHALATION SCH (07:34)
[2021-12-01] MEDS: HEPARIN SODIUM,PORCINE/PF 5,000 UNIT/0.5 ML SYRINGE SQ SCH (08:20)
[2021-12-01] MEDS: NICOTINE 21MG/24HR PATCH TRANSDERM SCH (08:20)
[2021-12-01] MEDS: CHOLECALCIFEROL 125 MCG (5000 IU) TABLET PO SCH (08:22)
[2021-12-01] MEDS: MAGNESIUM OXIDE 400 MG TAB PO SCH (08:22)
[2021-12-01] MEDS: SUCRALFATE 1 GM TAB PO SCH ×2 (08:22→12:10)
[2021-12-01] MEDS: PANTOPRAZOLE 40 MG TABLET PO SCH (08:22)
[2021-12-01] MEDS: THIAMINE 100 MG TAB PO SCH (08:22)
[2021-12-01] MEDS: FOLIC ACID 1 MG TAB PO SCH (12:10)
[2021-12-01] MEDS: MULTIVITAMINS, THERA 1 EACH TAB PO SCH (12:10)
--- NOTE | 2021-12-01 13:37 | P.DS ---
Providers Date of admission: 11/21/21 14:51 Expected date of discharge: 12/01/21 Attending physician: Terrie Durant Consults: 11/19/21 13:59 Consult Physician Routine Consulting Provider: Krishan Yu Consult Reason/Comments: sepsis/leukocytosis Do you want consulting provider notified?: Yes 11/22/21 08:26 Consult Physician Routine Consulting Provider: Choco Corrales Consult Reason/Comments: possible left rotator cuff team Do you want consulting provider notified?: Yes 11/22/21 10:09 Consult Physician Routine Consulting Provider: Justino Forte Consult Reason/Comments: wound care Do you want consulting provider notified?: Already Contacted Primary care physician: Stated None Hospital Course: Final diagnosis acute cellulitis and multiple abscesses, including left olecranonseptic bursa, left arm abscess status post incision and drainage x 2, sepsis present on admission Irrigation and debridement of the right elbow olecranon bursa and status post wound vac Change in mental status, acute metabolic and cephalopathy secondary to sepsis, multifactorial, present on admission Anemia, possibly acute on chronic blood loss anemia, symptomatic, status post transfusion Left rotator cuff tear History of nicotine dependence Status post blood transfusion Poor social support History of EtOH History of COPD, asthma acute exacerbation History of seizure disorder History of anxiety, depression Hyponatremia Hypokalemia, severe Elevated CRP elevated WBC Anemia, macrocytic Gait dysfunction Full code Discharge disposition Patient is being discharged in a stable condition with guarded prognosis to [facility]. Patient will follow-up with primary care provider in the outpatient setting upon discharge. Patient is to continue with IV antibiotics in the form of Cefazolin three times daily for the next two weeks and close outpatient follow up with Dr. Yu. Patient is to also follow up with orthopedics and vascular surgery in the outpatient setting. Patient will continue on lasix 40mg daily on discharge and recommend repeat labs to monitor electrolytes and kidney functions closely. continue wound care per ID recommendations. Recommend repeat labs for CBC and CMP in the outpatient setting. Total time taken is greater than 35 minutes. Hospital course This is a 56-year-old male who was recently admitted with acute cellulitis with multiple abscesses and admitted for further evaluation. Patient was followed closely by orthopedics and infectious disease. Patient had surgical intervention of the abscess and did have wound vac. Patient to continue with wound care per ID recommendations and did receive a PICC line and will continue on IV cefazolin 2g tid for the next 2 weeks and needs outpatient follow up with Dr. Yu in one week. Cultures showing MSSA. Patient will need orthopedic and vascular surgery outpatient follow-up in 1-2 weeks. Patient with some upper extremity swelling and started on lasix and will continue and recommend follow up labs and reevaluate for the continued need of Lasix. Recommend repeat labs to monitor kidney functions and electrolytes closely. Currently no reports of chest pain, shortness of breath, or palpitations. Patient is afebrile. No reports of nausea or vomiting and patient is tolerating diet. Patient will be going to [place] today. Guarded prognosis. On exam vital signs are stable. Cardio S1, S2 are muffled. Respiratory system shows diminished breath sounds at the bases with no wheezing or rhonchi noted. Abdomen is soft and obese, and nontender. Nervous system shows diffuse weakness. Please refer to medication reconciliation sheet for a list of medications. Patient Condition at Discharge: Fair Plan - Discharge Summary Discharge Rx Participant: No New Discharge Prescriptions: New Folic Acid 1 mg PO DAILY@1200 tab ceFAZolin [Kefzol] 2 gm IVP Q8HR 14 Days #42 ml Multivitamins, Thera [Multivitamin (formulary)] 1 each PO DAILY@1200 tab HYDROcodone/APAP 5-325MG [[place]a 5-325] 1 each PO Q6HR PRN #6 tab PRN Reason: Moderate Pain SILVER sulfADIAZINE CREAM [Silvadene Cream] 1 applic TOPICAL DAILY cream Acetaminophen Tab [Tylenol] 650 mg PO Q6HR PRN tab PRN Reason: Fever and/ or Mild Pain Acetaminophen Suppository [Tylenol Suppository] 650 mg RECTAL Q6HR PRN supp PRN Reason: Fever And/ Or Pain Furosemide [Lasix] 40 mg PO DAILY 14 Days #14 tablet Ipratropium-Albuterol Nebulize [Duoneb 0.5 mg-3 mg/3 ml Soln] 3 ml INHALATION RT-TID ml Ipratropium-Albuterol Nebulize [Duoneb 0.5 mg-3 mg/3 ml Soln] 3 ml INHALATION RT-TID PRN ml PRN Reason: Shortness Of Breath Or Wheezing Nicotine 21Mg/24Hr Patch [Habitrol] 1 patch TRANSDERM DAILY patch Potassium Chloride ER [K-Dur 10] 10 meq PO DAILY 14 Days #14 tab Continue Omeprazole [PriLOSEC] 20 mg PO BID Cholecalciferol [Vitamin D3 (25 Mcg = 1000 Iu)] 125 mcg PO DAILY busPIRone HCL 5 mg PO TID PRN PRN Reason: Anxiety Albuterol Sulfate [Proair Hfa] 1 - 2 puff INHALATION RT-Q6H PRN PRN Reason: Shortness Of Breath Ondansetron [Zofran] 4 mg PO Q8HR PRN PRN Reason: Nausea Famotidine [Pepcid] 20 mg PO DAILY Budesonide/Formoterol Fumarate [Symbicort 160-4.5 Mcg Inhaler] 2 puff INHALATION RT-BID Thiamine [Vitamin B-1] 100 mg PO BID-W/MEALS 30 Days #60 tab Metoclopramide [Reglan] 10 mg PO HS PRN PRN Reason: Nausea Sucralfate [Carafate] 1 gm PO ACHS traZODone HCL 50 - 100 mg PO HS PRN PRN Reason: Insomnia Meclizine HCl 25 mg PO BID PRN PRN Reason: Vertigo Hydrocortisone Cream [Hydrocortisone 2.5% Cream] 1 applic TOPICAL QID PRN PRN Reason: RASH/DRY SKIN Albuterol Nebulized [Ventolin Nebulized] 2.5 mg INHALATION RT-QID PRN PRN Reason: Shortness Of Breath Magnesium Oxide [Mag-Ox] 400 mg PO TID 30 Days #90 tablet guaiFENesin [Mucinex] 600 mg PO Q12HR PRN PRN Reason: Congestion LORazepam [Ativan] 1 mg PO Q8HR PRN #3 tab PRN Reason: Anxiety Discontinued Ibuprofen [Motrin] 800 mg PO QID PRN PRN Reason: Pain Or Fever > 100.5 Discharge Medication List Omeprazole [PriLOSEC] 20 mg PO BID 12/02/19 [History] Cholecalciferol [Vitamin D3 (25 Mcg = 1000 Iu)] 125 mcg PO DAILY 05/30/21 [History] Albuterol Sulfate [Proair Hfa] 1 - 2 puff INHALATION RT-Q6H PRN 08/16/21 [History] Metoclopramide [Reglan] 10 mg PO HS PRN 08/16/21 [History] Ondansetron [Zofran] 4 mg PO Q8HR PRN 08/16/21 [History] Sucralfate [Carafate] 1 gm PO ACHS 08/16/21 [History] busPIRone HCL 5 mg PO TID PRN 08/16/21 [History] traZODone HCL 50 - 100 mg PO HS PRN 08/16/21 [History] Albuterol Nebulized [Ventolin Nebulized] 2.5 mg INHALATION RT-QID PRN 10/25/21 [History] Budesonide/Formoterol Fumarate [Symbicort 160-4.5 Mcg Inhaler] 2 puff INHALATION RT-BID 10/25/21 [History] Famotidine [Pepcid] 20 mg PO DAILY 10/25/21 [History] Hydrocortisone Cream [Hydrocortisone 2.5% Cream] 1 applic TOPICAL QID PRN 10/25/21 [History] Meclizine HCl 25 mg PO BID PRN 10/25/21 [History] Magnesium Oxide [Mag-Ox] 400 mg PO TID 30 Days #90 tablet 11/01/21 [Rx] Thiamine [Vitamin B-1] 100 mg PO BID-W/MEALS 30 Days #60 tab 11/01/21 [Rx] guaiFENesin [Mucinex] 600 mg PO Q12HR PRN 11/18/21 [History] Acetaminophen Suppository [Tylenol Suppository] 650 mg RECTAL Q6HR PRN supp 12/01/21 [Rx] Acetaminophen Tab [Tylenol] 650 mg PO Q6HR PRN tab 12/01/21 [Rx] Folic Acid 1 mg PO DAILY@1200 tab 12/01/21 [Rx] Furosemide [Lasix] 40 mg PO DAILY 14 Days #14 tablet 12/01/21 [Rx] HYDROcodone/APAP 5-325MG [Gotha 5-325] 1 each PO Q6HR PRN #6 tab 12/01/21 [Rx] Ipratropium-Albuterol Nebulize [Duoneb 0.5 mg-3 mg/3 ml Soln] 3 ml INHALATION RT -TID ml 12/01/21 [Rx] Ipratropium-Albuterol Nebulize [Duoneb 0.5 mg-3 mg/3 ml Soln] 3 ml INHALATION RT-TID PRN ml 12/01/21 [Rx] LORazepam [Ativan] 1 mg PO Q8HR PRN #3 tab 12/01/21 [Rx] Multivitamins, Thera [Multivitamin (formulary)] 1 each PO DAILY@1200 tab 12/01/21 [Rx] Nicotine 21Mg/24Hr Patch [Habitrol] 1 patch TRANSDERM DAILY patch 12/01/21 [Rx] Potassium Chloride ER [K-Dur 10] 10 meq PO DAILY 14 Days #14 tab 12/01/21 [Rx] SILVER sulfADIAZINE CREAM [Silvadene Cream] 1 applic TOPICAL DAILY cream 12/01/21 [Rx] ceFAZolin [Kefzol] 2 gm IVP Q8HR 14 Days #42 ml 12/01/21 [Rx] Follow up Appointment(s)/Referral(s): Cari Red DO [STAFF PHYSICIAN] - 1 Week [facility], [NON-STAFF] - 1 Week None,Stated [Primary Care Provider] - 1-2 days Krishan Yu MD [STAFF PHYSICIAN] - 1 Week Choco Corrales MD [Medical Doctor] - 1 Week Ambulatory/Diagnostic Orders: Complete Blood Count w/diff [LAB.AMB] Time Frame: 3 Days, Location: None Selected Activity/Diet/Wound Care/Special Instructions: Patient follows with [facility] in [place]. Patient is going to [facility] activity as tolerated continue IV abx therapy per ID follow up with ID outpatient in 1 week follow up orthopedics outpatient Dr. Corrales follow up vascular surgery outpatient in 1-2 weeks continue with wound care per ID recommendations repeat labs in 2-3 days patient is continued on lasix 40mg daily and recommend close follow up to determine continued need for lasix Discharge Disposition: TRANSFER TO SNF/F
--- NOTE | 2021-12-01 14:39 | PN ---
PROGRESS NOTE DATE OF SERVICE: 12/01/2021 REASON FOR FOLLOWUP: Left elbow septic olecranon bursitis, MSSA and right elbow bursitis. Culture so far negative. INTERVAL HISTORY: The patient is afebrile. The patient is breathing comfortably. The patient denies having any chest pain, shortness of breath our cough. No abdominal pain. Overall, pain and discomfort to the bilateral elbow area has decreased. PHYSICAL EXAMINATION: Blood pressure 140/82 with a pulse of 83, temperature 98.7. He is 94% on room air. General description is a middle-aged male lying in bed in no distress. Respiratory system: Unlabored breathing, clear to auscultation anteriorly. Heart S1, S2. Regular rate and rhythm. Abdomen soft, no tenderness. Left elbow wound decreased in size with no significant slough tissue, surrounding redness or any drainage. Right elbow wound is mostly superficial with no swelling, redness or any drainage. DIAGNOSTIC IMPRESSION AND PLAN: Patient with left elbow septic olecranon bursitis status post bursectomy. Culture with MSSA. The patient to continue ( ) for two weeks. Local wound care with dry Aquacel dressing to both elbows, change every 48 hours and to follow up in the office in one week. MMODL / IJN: [id number] /
--- NOTE | 2021-12-01 14:45 | P.PN ---
Subjective Progress Note Date: 12/01/21 This patient is a 56-year-old male with a past medical history of COPD, chronic alcohol abuse who is status-post repeat I&D left septic olecranon bursa and multiloculated forearm abscess with application of wound VAC on 11/26/20, prior I&D was 11/24/21. He is also status-post right elbow I&D olecranon bursa on 11/29/20. Today's post-operative day #2 in regards to the right elbow. He is seen and examined beside. PICC line was placed yesterday per Dr. Yu. He is having mild pain in the right elbow. Denies numbness or tingling of the bilateral upper extremities. He has no new complaints today. Objective - Vital Signs Vital signs: Vital Signs Temp 98.7 F 12/01/21 07:00 Pulse 84 12/01/21 07:49 Resp 18 12/01/21 07:49 BP 140/82 12/01/21 07:00 Pulse Ox 94 L 12/01/21 07:00 Intake & Output 11/30/21 12/01/21 12/01/21 18:59 06:59 18:59 Output Total 800 1800 Balance -800 -1800 Output: Urine 800 1800 Other: Voiding Method Urinal Urinal # Voids 0 # Bowel Movements 1 - Exam On examination, the patient is sitting up in bed in no apparent distress. He is alert and oriented 3. On inspection of the left upper extremity, extremity is dressed with an Fco wrap. Motor and sensory function is intact of the left upper extremity. Left upper extremity is warm and well perfused with brisk capillary refill distally. On inspection of the right elbow, wound VAC is in place. Wound vac is removed and reveals a healthy-appearing wound at the posterior elbow with early granulation tissue. Motor and sensory function is intact of the right upper extremity. Right upper extremity is warm and well perfused with brisk capillary refill distally. - Labs CBC & Chem 7: 11/28/21 04:13 11/28/21 04:13 Labs: Microbiology - Last 24 Hours (Table) 11/29/21 11:47 Anaerobic Culture - Preliminary Elbow - Right 11/29/21 11:47 Gram Stain - Preliminary Elbow - Right Tissue Culture - Preliminary Assessment and Plan Assessment: Status-post repeat I&D of left septic olecranon bursa and multiloculated forearm abscess with application of wound VAC on 11/26/20. He is also status-post right elbow I&D olecranon bursa on 11/29/20. Plan: - Wound vac was removed from right elbow today. Wound care to the left elbow and right elbow per Dr. Yu moving forward. - Continue IV antibiotics under the discretion of Dr. Yu. - Pain management as needed. - Recommend vascular surgery consultation for bilateral toe ulcerations. - We will follow patient closely. We have no additional surgical intervention pl anned at this time.
[2021-12-01 14:58] VITALS: BP 145/86; PULSE 89; TEMP 99.5
== END 2021-12-01 16:55 | DRG 853 ==
LOC: EC 09:50 → 4SSUR 13:59 → OBSVTOIN 11-21 14:51 → 4SSUR 11-22 02:20
PROVIDERS: ADMIT Internal Medicine; ATTEND Internal Medicine
PROC: 0JBH0ZZ Excision of Left Lower Arm Subcutaneous Tissue and Fascia, Open Approach (ICD-10-PCS; 2021-11-24)
PROC: 30233N1 Transfusion of Nonautologous Red Blood Cells into Peripheral Vein, Percutaneous Approach (ICD-10-PCS; 2021-11-25)
PROC: 0JBH0ZZ Excision of Left Lower Arm Subcutaneous Tissue and Fascia, Open Approach (ICD-10-PCS; 2021-11-26)
PROC: 2W1DX6Z Compression of Left Lower Arm using Pressure Dressing (ICD-10-PCS; 2021-11-26)
PROC: 0JDH0ZZ Extraction of Left Lower Arm Subcutaneous Tissue and Fascia, Open Approach (ICD-10-PCS; principal; 2021-11-26 09:30)
PROC: 0JBH0ZZ Excision of Left Lower Arm Subcutaneous Tissue and Fascia, Open Approach (ICD-10-PCS; 2021-11-29)
PROC: 02HV33Z Insertion of Infusion Device into Superior Vena Cava, Percutaneous Approach (ICD-10-PCS; 2021-11-30)
PROC: B548ZZA Ultrasonography of Superior Vena Cava, Guidance (ICD-10-PCS; 2021-11-30)
PROC: B5181ZA Fluoroscopy of Superior Vena Cava using Low Osmolar Contrast, Guidance (ICD-10-PCS; 2021-11-30)
DX: A41.9 Sepsis, unspecified organism (principal); G93.41 Metabolic encephalopathy; E87.1 Hypo-osmolality and hyponatremia; L02.414 Cutaneous abscess of left upper limb; L02.611 Cutaneous abscess of right foot; L03.114 Cellulitis of left upper limb; M00.9 Pyogenic arthritis, unspecified; F10.10 Alcohol abuse, uncomplicated; B95.62 Methicillin resistant Staphylococcus aureus infection as the cause of diseases classified elsewhere; D53.9 Nutritional anemia, unspecified; E66.9 Obesity, unspecified; E87.6 Hypokalemia; F10.20 Alcohol dependence, uncomplicated; F17.210 Nicotine dependence, cigarettes, uncomplicated; F31.9 Bipolar disorder, unspecified; F41.9 Anxiety disorder, unspecified; G40.909 Epilepsy, unspecified, not intractable, without status epilepticus; I49.3 Ventricular premature depolarization; J44.9 Chronic obstructive pulmonary disease, unspecified; K21.9 Gastro-esophageal reflux disease without esophagitis; L97.519 Non-pressure chronic ulcer of other part of right foot with unspecified severity; L97.529 Non-pressure chronic ulcer of other part of left foot with unspecified severity; M70.31 Other bursitis of elbow, right elbow; M71.122 Other infective bursitis, left elbow; M75.102 Unspecified rotator cuff tear or rupture of left shoulder, not specified as traumatic; R65.20 Severe sepsis without septic shock; Z63.8 Other specified problems related to primary support group; Z79.2 Long term (current) use of antibiotics; Z79.51 Long term (current) use of inhaled steroids; Z91.81 History of falling; Z20.822 Contact with and (suspected) exposure to COVID-19; D69.6 Thrombocytopenia, unspecified; F12.90 Cannabis use, unspecified, uncomplicated; G43.909 Migraine, unspecified, not intractable, without status migrainosus; G62.9 Polyneuropathy, unspecified
CPT/HCPCS: 36415; 36573; 70450; 71045; 80048; 80053; 80202; 80306; 80320; 81001; 82140; 82272; 82565; 83605; 83735; 84132; 84145; 84146; 84484; 85025; 85610; 85730; 86140; 86850; 86900; 86901; 86920; 87040; 87070; 87075; 87077; 87186; 87205; 87635; 93005; 94640; 96361; 96374; 99285

== ENCOUNTER → 2022-10-26 | Outpatient (CLI) | payer MEDICARE, OTHER ==
[2022-10-26 14:03] VITALS: BP 122/75; PULSE 81; RESP 16; TEMP 98
--- NOTE | 2022-10-26 15:06 | P.PAINPG ---
PQRS Measure Charge Sheet Comment: A 57 yr old male with a history of severe and chronic PERSAUD pain secondary to occipital neuralgia and cervicogenic headache presents today for intense headache pain. 50% x 3 mo Pain level is currently at 7/10 in intensity, constant, localized in the upper cerivcal spine, throbbing in character w shooting towards the scalp. Pain is provoked by hyperextension and rotation. Pain is alleviated with injections, medications (Tyl, Ibu) and rest. Interventional pain procedures completed include BL CHANDAN x3 Patient is currently on Tylenol, Ibuprofen Patient denies any side effects of the medication(s), denies excessive drowsiness or sleepiness, denies suicidal ideation and reports that the current pain medication is helping to control the pain and improve activities of daily living. Patient denies any motor or sensory deficits. Patient denies any fever or night sweats, denies any change in the bowel movements or urination. Physical Examination: -Constitutional: Cooperative. Not in acute distress . - Neurologic: Cranial nerve II to XII intact. No focal neurological deficits. - Psychatric: Alert & oriented x 3. Matching mood & appropriate affect. Judgment and insight intact. - Musculoskeletal: Cervical spine: +TTP over BL GONs Muscle bulk/ tone/ strength in the bilateral upper extremities normal Vertebral body tenderness to palpation over Spurling test positive Distraction test positive Facet loading test positive Thoracic spine Muscle bulk / tone/ strength in the bilateral paraspinal muscles normal Vertebral body tender to palpation over Facet loading test positive Lumbar spine: Motor bulk/ tone/ strength lower extremities , thigh and legs : 5/5 Deep tendon reflexes : Normal Knee Jerk. Normal Ankle Jerk . Vertebral body tenderness to palpation over Lumbar Facet Loading Test positive Straight Leg Raise: positive at 30 degrees right side/ left side Gaenslen's Test positive Sacral spine : Severe tenderness over the Sacroiliac joint: right side / left side Range of motion: Flexion of the lumbar spine <60 degrees Range of motion: Extension of the lumbar spine <20 degrees Gaenslen's Test positive Stan test: positive right side / left side Thigh Thrust Test Sacral Thrust Test Assessment and plan: Chronic PERSAUD pain secondary to occipital neuralgia and cervicogenic headache Recommendation of BL CHANDAN injection. May need a series, up to 4 per 12 mo period, for optimal pain relief. Risks, benefits of procedure discussed and pt verbalized understanding. Denies anticoagulant use or medical history of diabetes. All patient questions answered I have spent less than 30 minutes on patient care today. Dr Diana was available by phone for the evaluation of this patient. The time was used to review the medical records including relevant urine studies and Prescription history (MAPs), review of the available imaging, evaluation and examination of the patient, coordination of care with the medical staff and if applicable referring physicians, as well as creation of the medical record - Pain Location Bilateral Upper Neck Pharmacological Interventions: Block, PRN Medication PQRS Narrative: Smoking Status Current every day smoker Hx Alcohol Use (MH) Yes Home Medications: Ambulatory Orders Omeprazole [PriLOSEC] 20 mg PO BID 12/02/19 Cholecalciferol [Vitamin D3 (25 Mcg = 1000 Iu)] 125 mcg PO DAILY 05/30/21 Albuterol Sulfate [Proair Hfa] 1 - 2 puff INHALATION RT-Q6H PRN 08/16/21 Metoclopramide [Reglan] 10 mg PO HS PRN 08/16/21 Ondansetron [Zofran] 4 mg PO Q8HR PRN 08/16/21 Sucralfate [Carafate] 1 gm PO ACHS 08/16/21 busPIRone HCL 5 mg PO TID PRN 08/16/21 traZODone HCL 50 - 100 mg PO HS PRN 08/16/21 Albuterol Nebulized [Ventolin Nebulized] 2.5 mg INHALATION RT-QID PRN 10/25/21 Budesonide/Formoterol Fumarate [Symbicort 160-4.5 Mcg Inhaler] 2 puff INHALATION RT-BID 10/25/21 Famotidine [Pepcid] 20 mg PO DAILY 10/25/21 Hydrocortisone Cream [Hydrocortisone 2.5% Cream] 1 applic TOPICAL QID PRN 10/25/21 Meclizine HCl 25 mg PO BID PRN 10/25/21 Magnesium Oxide [Mag-Ox] 400 mg PO TID 30 Days #90 tablet 11/01/21 Thiamine [Vitamin B-1] 100 mg PO BID-W/MEALS 30 Days #60 tab 11/01/21 guaiFENesin [Mucinex] 600 mg PO Q12HR PRN 11/18/21 Acetaminophen Suppository [Tylenol Suppository] 650 mg RECTAL Q6HR PRN supp 12/01/21 Acetaminophen Tab [Tylenol] 650 mg PO Q6HR PRN tab 12/01/21 Folic Acid 1 mg PO DAILY@1200 tab 12/01/21 Furosemide [Lasix] 40 mg PO DAILY 14 Days #14 tablet 12/01/21 HYDROcodone/APAP 5-325MG [[place] 5-325] 1 each PO Q6HR PRN #6 tab 12/01/21 Ipratropium-Albuterol Nebulize [Duoneb 0.5 mg-3 mg/3 ml Soln] 3 ml INHALATION RT-TID ml 12/01/21 Ipratropium-Albuterol Nebulize [Duoneb 0.5 mg-3 mg/3 ml Soln] 3 ml INHALATION RT-TID PRN ml 12/01/21 LORazepam [Ativan] 1 mg PO Q8HR PRN #3 tab 12/01/21 Multivitamins, Thera [Multivitamin (formulary)] 1 each PO DAILY@1200 tab 12/01/21 Nicotine 21Mg/24Hr Patch [Habitrol] 1 patch TRANSDERM DAILY patch 12/01/21 Potassium Chloride ER [K-Dur 10] 10 meq PO DAILY 14 Days #14 tab 12/01/21 SILVER sulfADIAZINE CREAM [Silvadene Cream] 1 applic TOPICAL DAILY cream 12/01/21 ceFAZolin [Kefzol] 2 gm IVP Q8HR 14 Days #42 ml 12/01/21 Controlled Substance Measures - Controlled Substance Measures Is patient prescribed a controlled substance at discharge?: No
== END ==
LOC: PNWHC3 13:39
PROVIDERS: ATTEND Specialist
DX: M54.81 Occipital neuralgia (principal); F17.200 Nicotine dependence, unspecified, uncomplicated
CPT/HCPCS: 99211

== ENCOUNTER → 2022-10-27 | Outpatient (CLI) | payer MEDICARE, OTHER ==
--- NOTE | 2022-10-28 09:04 | CTL ---
EXAMINATION TYPE: CT Low Dose Lung DATE OF EXAM: 10/27/2022 5:25 PM CLINICAL INDICATION:Male, 57 years old with history of Z87.891 Personal History of Tobacco Use; Perso nal History of Tobacco Use , history of tobacco use. COMPARISON: None. TECHNIQUE: Multiple axial non-contrast scans were obtained from approximately the lung apices through the upper abdomen. Coronal and sagittal reformatted images were obtained. Low dose technique was uti lized. CT DLP: 102.3 mGycm, Automated exposure control for dose reduction was used. CT Contrast: Contrast used: None Oral contrast used: None FINDINGS: ======== Lack of intravenous contrast and low dose technique limits the evaluation of the vascular and soft ti ssue structures. LUNGS: Scarring most pronounced in the right middle lobe with partial collapse of the right middle lo be with bronchiectasis. Centrilobular emphysema changes are seen throughout the lungs. No evidence of focal consolidation, pneumothorax or pleural effusion. Nodules: RUL: None. RML: None. RLL: None. TEETEE: None. LLL: None. AIRWAY: Mild bronchiectasis within the right middle lobe. HEART: Size within normal limits. Coronary artery atherosclerosis. MEDIASTINUM: No gross evidence of adenopathy. VASCULATURE: No aortic aneurysm. MUSCULOSKELETAL: No acute osseous abnormalities, remote injuries to the ribs bilaterally. SOFT TISSUES/LYMPH NODES: Unremarkable. LOWER NECK: No significant findings. UPPER ABDOMEN: Diffuse low-attenuation to the liver parenchyma. IMPRESSION: 1. No clinically significant pulmonary nodules. 2. Atelectasis of the right middle lobe with partial bronchiectasis of the airways within the atelect atic right middle lobe. 3. Mild emphysema changes. 4. Hepatic steatosis. CT LUNG RAD AND CT CHEST RECOMMENDATION: Lung-Rad 2 Benign Appearance or Behavior: Continue annual sc reening with LDCT in 12 months. S Modifier (other clinically significant findings): None Recommend smoking cessation (if current smoker), or continuation of smoking cessation (if prior smoke r). Annual screening for lung cancer with low-dose computed tomography is recommended in adults ages 55 to 77 years who have a 30 pack-year smoking history and currently smoke or have quit within the pa st 15 years. Screening should be discontinued once a person has not smoked for 15 years or develops a health problem that substantially limits life expectancy or the ability or willingness to have curat chey lung surgery. Lung rads 2021 [email or web address]
== END | disposition home or self-care (01) ==
LOC: RADCTMAIN 16:27
PROVIDERS: ATTEND Family Medicine
DX: Z12.2 Encounter for screening for malignant neoplasm of respiratory organs (principal); J98.11 Atelectasis; J47.9 Bronchiectasis, uncomplicated; J43.9 Emphysema, unspecified; K76.0 Fatty (change of) liver, not elsewhere classified; Z87.891 Personal history of nicotine dependence
CPT/HCPCS: 71271

== ENCOUNTER 2022-12-21 09:09 | Day surgery (SDC) | payer MEDICARE, OTHER ==
[2022-12-21 09:43] VITALS: TEMP 97.2
[2022-12-21] MEDS ORDERED: LIDOCAINE 1% (10MG/ML) FOR IV START INTRADERMA ONE (09:44)
[2022-12-21] MEDS ORDERED: methylPREDNISolone ACETATE 80 MG/ML 1 ML VIAL ONE (09:57)
[2022-12-21] MEDS ORDERED: ROPIVACAINE 5 MG/ML 20 ML AMPULE ONE (09:57)
[2022-12-21] MEDS ORDERED: fentaNYL (PF) 50 MCG/ML 2 ML AMP ONE (09:57)
[2022-12-21] MEDS ORDERED: MIDAZOLAM 2 MG/2 ML VIAL ONE (09:57)
--- NOTE | 2022-12-21 10:08 | P.PCN ---
Date of Procedure: 12/21/22 Procedure(s) Performed: Preoperative diagnoses= 1- Greater occipital neuralgia. 2-cervicogenic headache Postoperative diagnoses= same as preoperative diagnosis. Procedure= Bilateral Greater occipital nerve block Anesthesia= moderate sedation with Versed 2 mg and fentanyl 50 micrograms Sedation start time : 0 959 . Sedation end time : 1004 . Estimated blood loss=minimal. Procedure indication= the patient had a history of severe chronic neck pain ,and headache, diagnosed with occipital neuralgia exam was positive for severe tenderness over the occipital nerve bilaterally, she will be a good candidate occipital nerve block, patient failed conservative management Procedure description= the patient was seen and identified in the preoperative holding area, risks and benefits and alternative of the procedure and possible complications discussed with the patient, and he agreed with the preceding, patient signed the consent, an IV was started, and vital signs were monitored and were stable throughout the procedure, patient was placed in the sitting position or table and the neck area was prepped and draped with a sterile fashion, vital signs were closely monitored during the procedure, 25-gauge needle advanced 1 inch lateral to the occipital protuberance on the right side, at the location of the right occipital nerve , then after negative aspiration for heme and CSF and there was no paresthesia during the injection, 6 ml of Robivacaine 0.5% and 40 mg of Depo-Medrol injected after negative aspiration, the needle removed, and the entire same procedure was repeated for the left Greater occipital nerve. Patient tolerated the procedure well without any complication, The patient returned to supine position after the back was cleaned and a Band- Aid applied, the patient transported to recovery room in stable condition and he was monitored for 30 minutes before he was discharged home and then patient was reexamined before going home and patient was discharged in stable condition and patient will follow up with the pain clinic in a few weeks.
[2022-12-21] MEDS ORDERED: IV FLUID CONTINUATION 800 ML IV ONE (10:10)
[2022-12-21 10:26] VITALS: BP 128/83; PULSE 72; RESP 20
== END 2022-12-21 10:40 | disposition home or self-care (01) ==
LOC: ORPAIN 09:09
PROVIDERS: ATTEND Specialist
DX: M54.81 Occipital neuralgia (principal); G44.86 Cervicogenic headache
CPT/HCPCS: 64405; J2250; J1040; J3010; J2795

== ENCOUNTER → 2023-02-08 | Outpatient (CLI) | payer MEDICARE, OTHER ==
[2023-02-08 14:51] VITALS: BP 137/88; PULSE 99; RESP 18; TEMP 97.9
--- NOTE | 2023-02-08 15:54 | P.PAINPG ---
PQRS Measure Charge Sheet Comment: A 57 yr old male with a history of severe and chronic neck pain secondary to cervicogenic PERSAUD and occipital neuralgia presents today for evaluation s/p BL CHANDAN injection. Pt states he experienced 25 % pain relief x 3 days s/p procedure. Pain level is provoked at 8 /10 in intensity, constant, localized in the cervical spine, throbbing in character w shooting towards the temples. Pain is provoked by cold weather. Pain is alleviated with medications, increased ETOH use, THC product use, repositioning and rest. Interventional pain procedures completed include BL CHANDAN injections Patient is currently on Tramadol, Ibu, Tyl Patient denies any side effects of the medication(s), denies excessive drowsiness or sleepiness, denies suicidal ideation and reports that the current pain medication is helping to control the pain and improve activities of daily living. Patient denies any motor or sensory deficits. Patient denies any fever or night sweats, denies any change in the bowel movements or urination. Physical Examination: -Constitutional: Cooperative. Not in acute distress . - Neurologic: Cranial nerve II to XII intact. No focal neurological deficits. - Psychatric: Alert & oriented x 3. Matching mood & appropriate affect. Judgment and insight intact. - Musculoskeletal: Cervical spine: Muscle bulk/ tone/ strength in the bilateral upper extremities normal Vertebral body tenderness to palpation over Spurling test positive Distraction test positive Facet loading test positive TTP over BL C2-C3, C3-C4 facets Thoracic spine Muscle bulk / tone/ strength in the bilateral paraspinal muscles normal Vertebral body tender to palpation over Facet loading test positive TTP Lumbar spine: Motor bulk/ tone/ strength lower extremities , thigh and legs : 5/5 Deep tendon reflexes : Normal Knee Jerk. Normal Ankle Jerk . Vertebral body tenderness to palpation over Lumbar Facet Loading Test positive Straight Leg Raise: positive at 30 degrees right side/ left side Gaenslen's Test positive Sacral spine : Severe tenderness over the Sacroiliac joint: right side / left side Range of motion: Flexion of the lumbar spine <60 degrees Range of motion: Extension of the lumbar spine <20 degrees Gaenslen's Test positive R / L Stan test: positive right side / left side Thigh Thrust Test positive R / L Sacral Thrust Test positive R/ L Assessment and plan: Chronic neck pain secondary to cervicogenic PERSAUD and occipital neuralgia Recommendation of BL facet block of the medial branches C2-C3, C3-C4 #1. May need a series of injections, up until RFA, for optimal pain relief. Risks, benefits of procedure discussed and pt verbalized understanding. Admits to anticoagulant use or medical history of diabetes. Protocol for discontinuation/ continuation of medications octavia procedure discussed. All questions answered. I have spent less than 30 minutes on patient care today. Dr Diana was available by phone for the evaluation of this patient. The time was used to review the medical records including relevant urine studies and Prescription history (MAPs), review of the available imaging, evaluation and examination of the patient, coordination of care with the medical staff and if applicable referring physicians, as well as creation of the medical record PQRS Narrative: Smoking Status Current every day smoker Hx Alcohol Use (MH) Yes Home Medications: Ambulatory Orders Omeprazole [PriLOSEC] 20 mg PO BID 12/02/19 Cholecalciferol [Vitamin D3 (25 Mcg = 1000 Iu)] 125 mcg PO DAILY 05/30/21 Albuterol Sulfate [Proair Hfa] 1 - 2 puff INHALATION RT-Q6H PRN 08/16/21 busPIRone HCL 5 mg PO BID 08/16/21 traZODone HCL 50 - 100 mg PO HS PRN 08/16/21 Albuterol Nebulized [Ventolin Nebulized] 2.5 mg INHALATION RT-QID PRN 10/25/21 Budesonide/Formoterol Fumarate [Symbicort 160-4.5 Mcg Inhaler] 2 puff INHALATION RT-BID 10/25/21 Famotidine [Pepcid] 20 mg PO DAILY 10/25/21 Meclizine HCl 25 mg PO BID PRN 10/25/21 Thiamine [Vitamin B-1] 100 mg PO BID-W/MEALS 30 Days #60 tab 11/01/21 Acetaminophen Tab [Tylenol] 650 mg PO Q6HR PRN tab 12/01/21 Ipratropium-Albuterol Nebulize [Duoneb 0.5 mg-3 mg/3 ml Soln] 3 ml INHALATION RT-TID ml 12/01/21 Ipratropium-Albuterol Nebulize [Duoneb 0.5 mg-3 mg/3 ml Soln] 3 ml INHALATION RT-TID PRN ml 12/01/21 Multivitamins, Thera [Multivitamin (formulary)] 1 each PO DAILY@1200 tab 12/01/21 Ascorbic Acid [Vitamin C] 500 mg PO DAILY 11/23/22 Diltiazem Cd [Cardizem CD] 120 mg PO DAILY 11/23/22 Gabapentin 300 mg PO DAILY 11/23/22 Magnesium Oxide [Mag-Ox] 400 mg PO DAILY 11/23/22 traMADol HCL 1 tab PO DAILY 11/23/22 Controlled Substance Measures - Controlled Substance Measures Is patient prescribed a controlled substance at discharge?: No
== END ==
LOC: PNWHC3 13:45
PROVIDERS: ATTEND Specialist
DX: M54.81 Occipital neuralgia (principal); G44.86 Cervicogenic headache; G89.29 Other chronic pain; F17.200 Nicotine dependence, unspecified, uncomplicated
CPT/HCPCS: 99211

== ENCOUNTER → 2023-09-13 | Outpatient (CLI) | payer MEDICARE, OTHER ==
--- NOTE | 2023-09-13 14:37 | P.PAINPG ---
PQRS Measure Charge Sheet Comment: A 57 yr old male with a history of severe and chronic neck pain secondary to cervicogenic PERSAUD and occipital neuralgia presents today for evaluation. Pain level is provoked at 7 /10 in intensity, constant, localized in the cervical spine, throbbing in character w shooting towards the temples. Pain is provoked by cold weather. Pain is alleviated with medications, increased ETOH use, THC product use, repositioning and rest. Cervical disability score of 22. Interventional pain procedures completed include BL CHANDAN injections Patient is currently on Tramadol, Ibu, Tyl Patient denies any side effects of the medication(s), denies excessive drowsiness or sleepiness, denies suicidal ideation and reports that the current pain medication is helping to control the pain and improve activities of daily living. Patient denies any motor or sensory deficits. Patient denies any fever or night sweats, denies any change in the bowel movements or urination. Physical Examination: -Constitutional: Cooperative. Not in acute distress . - Neurologic: Cranial nerve II to XII intact. No focal neurological deficits. - Psychatric: Alert & oriented x 3. Matching mood & appropriate affect. Judgment and insight intact. - Musculoskeletal: Cervical spine: Muscle bulk/ tone/ strength in the bilateral upper extremities normal Vertebral body tenderness to palpation over Spurling test positive Distraction test positive Facet loading test positive TTP over BL C2-C3, C3-C4 facets Thoracic spine Muscle bulk / tone/ strength in the bilateral paraspinal muscles normal Vertebral body tender to palpation over Facet loading test positive TTP Lumbar spine: Motor bulk/ tone/ strength lower extremities , thigh and legs : 5/5 Deep tendon reflexes : Normal Knee Jerk. Normal Ankle Jerk . Vertebral body tenderness to palpation over Lumbar Facet Loading Test positive Straight Leg Raise: positive at 30 degrees right side/ left side Gaenslen's Test positive Sacral spine : Severe tenderness over the Sacroiliac joint: right side / left side Range of motion: Flexion of the lumbar spine <60 degrees Range of motion: Extension of the lumbar spine <20 degrees Gaenslen's Test positive R / L Stan test: positive right side / left side Thigh Thrust Test positive R / L Sacral Thrust Test positive R/ L Assessment and plan: Chronic neck pain secondary to cervicogenic PERSAUD and occipital neuralgia Recommendation of BL facet block of the medial branches C2-C3, C3-C4 #1. May need a series of injections, up until RFA, for optimal pain relief. Risks, benefits of procedure discussed and pt verbalized understanding. Admits to anticoagulant use or medical history of diabetes. Protocol for discontinuation/ continuation of medications octavia procedure discussed. All questions answered. I have spent less than 30 minutes on patient care today. Dr Diana was available by phone for the evaluation of this patient. The time was used to review the medical records including relevant urine studies and Prescription history (MAPs), review of the available imaging, evaluation and examination of the patient, coordination of care with the medical staff and if applicable referring physicians, as well as creation of the medical record - Pain Location Bilateral Upper Neck Pharmacological Interventions: Block, PRN Medication PQRS Narrative: Smoking Status Current every day smoker Hx Alcohol Use (MH) Yes: 1 PINT OF VODKA A DAY Home Medications: Ambulatory Orders Omeprazole [PriLOSEC] 20 mg PO BID 12/02/19 Cholecalciferol [Vitamin D3 (25 Mcg = 1000 Iu)] 125 mcg PO DAILY 05/30/21 Albuterol Sulfate [Proair Hfa] 1 - 2 puff INHALATION RT-Q6H PRN 08/16/21 busPIRone HCL 5 mg PO BID 08/16/21 traZODone HCL 50 - 100 mg PO HS PRN 08/16/21 Albuterol Nebulized [Ventolin Nebulized] 2.5 mg INHALATION RT-QID PRN 10/25/21 Budesonide/Formoterol Fumarate [Symbicort 160-4.5 Mcg Inhaler] 2 puff INHALATION RT-BID 10/25/21 Famotidine [Pepcid] 20 mg PO DAILY 10/25/21 Meclizine HCl 25 mg PO BID PRN 10/25/21 Thiamine [Vitamin B-1] 100 mg PO BID-W/MEALS 30 Days #60 tab 11/01/21 Acetaminophen Tab [Tylenol] 650 mg PO Q6HR PRN tab 12/01/21 Ipratropium-Albuterol Nebulize [Duoneb 0.5 mg-3 mg/3 ml Soln] 3 ml INHALATION RT-TID ml 12/01/21 Ipratropium-Albuterol Nebulize [Duoneb 0.5 mg-3 mg/3 ml Soln] 3 ml INHALATION RT-TID PRN ml 12/01/21 Multivitamins, Thera [Multivitamin (formulary)] 1 each PO DAILY@1200 tab 12/01/21 Ascorbic Acid [Vitamin C] 500 mg PO DAILY 11/23/22 Diltiazem Cd [Cardizem CD] 120 mg PO DAILY 11/23/22 Gabapentin 300 mg PO DAILY 11/23/22 Magnesium Oxide [Mag-Ox] 400 mg PO DAILY 11/23/22 traMADol HCL 1 tab PO DAILY 11/23/22 Controlled Substance Measures - Controlled Substance Measures Is patient prescribed a controlled substance at discharge?: No
[2023-09-13 14:53] VITALS: BP 123/79; PULSE 78; RESP 16; TEMP 98.5
== END ==
LOC: PNWHC3 14:12
PROVIDERS: ATTEND Specialist
DX: G44.86 Cervicogenic headache (principal); M54.81 Occipital neuralgia; F17.200 Nicotine dependence, unspecified, uncomplicated
CPT/HCPCS: 99211

== ENCOUNTER → 2023-09-20 | Outpatient (CLI) | payer MEDICARE, OTHER ==
--- NOTE | 2023-09-20 14:56 | XR ---
EXAMINATION TYPE: XR cervical spine limited DATE OF EXAM: 09/20/2023 2:48 PM INDICATION: Patient age:Male; 57 years old; Reason for study: M30.50 cervical pain; [facility]. COMPARISON: None TECHNIQUE: The cervical spine was imaged in frontal, lateral, and odontoid projections. FINDINGS: The osseous structures show normal alignment without evidence of an acute fracture. The intervertebra l disk spaces are preserved. Pedicles are intact. Soft tissues are within normal limits. The odonto id appears intact. IMPRESSION: No fracture or dislocation.
== END | disposition home or self-care (01) ==
LOC: RADXRMAIN 14:28
PROVIDERS: ATTEND Physician Assistant Medical
DX: M50.30 Other cervical disc degeneration, unspecified cervical region (principal)
CPT/HCPCS: 72040

== ENCOUNTER → 2023-10-29 | Outpatient (CLI) | payer MEDICARE, OTHER ==
--- NOTE | 2023-10-30 07:38 | CTL ---
EXAMINATION TYPE: CT Low Dose Lung DATE OF EXAM ORDERED: 10/29/2023 HISTORY: . Lung cancer screening CT DLP: 81.[address] CTDI: 2.0 mGy Automated exposure control for dose reduction was used. SCREENING VISIT: Subsequent COMPARISON: 10/27/2022 TECHNIQUE: Low dose computed tomography scan was performed through the chest at 1 mm thick sections a nd reconstructed images in the coronal plane at [address] DIAGNOSTIC QUALITY: Satisfactory FINDINGS: LUNG NODULES: Present, detailed below: 1. There is a 0.6 cm nodule right apex. 2. Some chronic appearing pulmonary fibrosis changes are in the right middle lobe LUNGS: COPD: Severity: None Fibrosis: Severity: None Lymph nodes: None Other findings: None RIGHT PLEURAL SPACE: Effusion: None Calcification: None Thickening: None Pneumothorax: None LEFT PLEURAL SPACE: Effusion: None Calcification: None Thickening: None Pneumothorax: None HEART: Heart Size: Normal Coronary calcification: Mild Pericardial effusion: None OTHER FINDINGS: Upper abdomen: Normal Bony thorax: Normal Supraclavicular region: Normal Other: Ascending thoracic aorta at the level the main pulmonary artery measures 3.2 cm. The main pul monary artery at the bifurcation measures 2.8 cm. IMPRESSION: Benign appearance FOLLOW UP CT CHEST RECOMMENDATION: Follow up limited CT chest one year CT LUNG RAD: Lung-Rad 2 Benign Appearance or Behavior
== END | disposition home or self-care (01) ==
LOC: RADCTMAIN 15:23
PROVIDERS: ATTEND Internal Medicine
DX: Z12.2 Encounter for screening for malignant neoplasm of respiratory organs (principal); F17.210 Nicotine dependence, cigarettes, uncomplicated
CPT/HCPCS: 71271

== ENCOUNTER 2023-12-21 05:41 | Emergency (ER) | payer MEDICARE, OTHER ==
[2023-12-21 06:05] VITALS: RESP 18; TEMP 98.2
[2023-12-21] MEDS ORDERED: LIDOCAINE/EPINEPHR/TETRACAINE 5 ML BOTTLE TOPICAL ONE ×2 (06:06→06:08)
[2023-12-21 06:17] LABS: Anisocytosis Slight; Basophils # (A) 0.1 k/uL (0-0.2); Basophils % (A) 1 %; Eosinophils # (A) 0.3 k/uL (0-0.7); Eosinophils % (A) 3 %; HCT 25.9 % (39.0-53.0); HGB 8.4 gm/dL (13.0-17.5); Hypochromasia Slight; Lymphocytes # (A) 1.8 k/uL (1.0-4.8); Lymphocytes % (A) 19 %; MCH 30.4 pg (25.0-35.0); MCHC 32.6 g/dL (31.0-37.0); Mean Platelet Volume 7.3; Monocytes # (A) 0.7 k/uL (0-1.0); Monocytes % (A) 8 %; Neutrophils # (A) 6.3 k/uL (1.3-7.7); Neutrophils % (A) 67 %; Platelet Count 505 k/uL (150-450); RBC 2.78 m/uL (4.30-5.90); RDW 17.1 % (11.5-15.5); WBC 9.4 k/uL (3.8-10.6)
[2023-12-21 06:36] LABS: ALT 22 U/L (4-49); AST 52 U/L (17-59); African American GFR (CKD) >90 (>60 ml/min/1.73 sqM); Albumin 3.7 g/dL (3.5-5.0); Alkaline Phosphatase 103 U/L (38-126); Anion Gap 12 mmol/L; Blood Urea Nitrogen 10 mg/dL (9-20); Calcium 8.6 mg/dL (8.4-10.2); Carbon Dioxide 20 mmol/L (22-30); Chloride 102 mmol/L (98-107); Glucose 96 mg/dL (74-99); Magnesium 1.2 mg/dL (1.6-2.3); Non-African American GFR(CKD) >90 (>60 ml/min/1.73 sqM); Potassium 3.9 mmol/L (3.5-5.1); Sodium 134 mmol/L (137-145); Total Bilirubin 0.2 mg/dL (0.2-1.3); Total Protein 7.5 g/dL (6.3-8.2)
[2023-12-21 06:43] LABS: Alcohol 215 mg/dL
[2023-12-21] MEDS ORDERED: MAGNESIUM SULFATE-D5W PMX 1 GM in DEXTROSE/WATER 1 100ML.BAG IVPB ONE (07:05)
[2023-12-21] MEDS ORDERED: MAGNESIUM OXIDE 400 MG TAB PO STA (07:05)
[2023-12-21 07:46] VITALS: BP 120/78; PULSE 96
--- NOTE | 2023-12-21 07:51 | CT ---
EXAMINATION TYPE: CT brain cspine wo con DATE OF EXAM: 12/21/2023 COMPARISON: Brain 11/18/2021 HISTORY: 58-year-old male with pain after fall face forward, loc CT DLP: 1315.4 mGycm Automated exposure control for dose reduction was used. Technique: Examination of the head was done in axial plane without intravenous contrast. Coronal and sagittal reconstructions performed. CT of the cervical spine was obtained in axial plane without intravenous injection of contrast mater ial. Coronal and sagittal reformatted images were obtained from the axial views for evaluation of f ractures, spinal alignment and canal. FINDINGS: Head: There is no evidence of acute intracranial hemorrhage, acute ischemic changes, mass, mass-effect, or extra-axial fluid collection. There is no effacement of cerebral sulci or basal subarachnoid cister ns. There is no hydrocephalus. There is no midline shift. Chadwick-white matter distinction is preserv ed. Mild volume loss overlying the bilateral cerebral convexities. There is moderate mucosal thickening and partial opacification throughout the ethmoid air cells and m axillary sinuses. Leftward nasal septal deviation. There appears to be an old left-sided nasal bone fracture. There appear to be transverse fractures through the 2 central maxillary incisors. Orbits and globes a ppear intact. Previous resection changes right mastoid process. Mastoid air cells are well pneumatize d. Cerumen right external auditory canal. Cervical spine: No craniocervical junction abnormality, predental space widening, or prevertebral soft tissue swellin g. Preserved alignment of the cervical spine. Degenerative change of the C1 dens articulation. Facet and uncovertebral joint arthropathy especially mid to lower cervical spine. Assessment of the spinal canal from C5-C6 and below is limited due to elevated patient shoulders. No acute fracture seen of the cervical spine. There may be moderate right-sided neuroforaminal stenoses at C5-C6 and C6-C7. Right-sided IJ vein central catheter. Sagittal and coronal reformatted images confirm above findings. COMBINED IMPRESSION: 1. There appear to be transverse fractures through the 2 central maxillary incisors. A left sided augustin al bone fracture is suspected to be old. Clinically correlate. 2. Mild cerebral atrophy. No acute intracranial abnormality seen. 3. No acute fracture or malalignment of the cervical spine. Mild to moderate multilevel spondylotic c hange.
--- NOTE | 2023-12-21 08:06 | ED ---
Fall HPI - General Chief Complaint: Fall Stated Complaint: Fall, Lip Lac Time Seen by Provider: 12/21/23 06:03 Source: patient, EMS, RN notes reviewed Mode of arrival: EMS Limitations: no limitations - History of Present Illness Initial Comments: 58-year-old male presents emergency department with chief complaint of fall. Patient states that he was pulling on the cord for his attic steps in which he states he reached up and then believes he passed out. Patient had a fall causing lip laceration. He states his tetanus is up-to-date. He only complains of oral, lip discomfort he denies any headache, neck pain, extremity injuries patient is a daily drinker. Patient does admit to alcohol use. Patient denies any abdominal pain no chest pain or palpitations. - Related Data Home Medications Medication Instructions Recorded Confirmed Omeprazole [PriLOSEC] 20 mg PO BID 12/02/19 12/21/22 Cholecalciferol [Vitamin D3 (25 125 mcg PO DAILY 05/30/21 12/21/22 Mcg = 1000 Iu)] Albuterol Sulfate [Proair Hfa] 1 - 2 puff INHALATION RT-Q6H PRN 08/16/21 12/21/22 busPIRone HCL 5 mg PO BID 08/16/21 12/21/22 traZODone HCL 50 - 100 mg PO HS PRN 08/16/21 12/21/22 Albuterol Nebulized [Ventolin 2.5 mg INHALATION RT-QID PRN 10/25/21 12/21/22 Nebulized] Budesonide/Formoterol Fumarate 2 puff INHALATION RT-BID 10/25/21 12/21/22 [Symbicort 160-4.5 Mcg Inhaler] Famotidine [Pepcid] 20 mg PO DAILY 10/25/21 12/21/22 Meclizine HCl 25 mg PO BID PRN 10/25/21 12/21/22 Ascorbic Acid [Vitamin C] 500 mg PO DAILY 11/23/22 12/21/22 Diltiazem Cd [Cardizem CD] 120 mg PO DAILY 11/23/22 12/21/22 Gabapentin 300 mg PO DAILY 11/23/22 12/21/22 Magnesium Oxide [Mag-Ox] 400 mg PO DAILY 11/23/22 12/21/22 traMADol HCL 1 tab PO DAILY 11/23/22 12/21/22 Previous Rx's Medication Instructions Recorded Thiamine [Vitamin B-1] 100 mg PO BID-W/MEALS 30 Days #60 11/01/21 tab Acetaminophen Tab [Tylenol] 650 mg PO Q6HR PRN tab 12/01/21 Ipratropium-Albuterol Nebulize 3 ml INHALATION RT-TID ml 12/01/21 [Duoneb 0.5 mg-3 mg/3 ml Soln] Ipratropium-Albuterol Nebulize 3 ml INHALATION RT-TID PRN ml 12/01/21 [Duoneb 0.5 mg-3 mg/3 ml Soln] Multivitamins, Thera [Multivitamin 1 each PO DAILY@1200 tab 12/01/21 (formulary)] Allergies Allergy/AdvReac Type Severity Reaction Status Date / Time No Known Allergies Allergy Verified 12/21/23 05:42 Review of Systems ROS Statement: Those systems with pertinent positive or pertinent negative responses have been documented in the HPI. ROS Other: All systems not noted in ROS Statement are negative. 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 Severe ETOH abuse. Hx alcohol withdrawal seizures/DTs, 1 yr ago, aspiration pneumonia, encephalopathy d/t alcohol, thrombocytopenia, chronic SOB. 3 years since only seizure History of Any Multi-Drug Resistant Organisms: None Reported Past Surgical History: Ear Surgery, Tonsillectomy Additional Past Surgical History / Comment(s): Bilateral mastoidectomies, sinus surgery and vocal cord scraping, cataract surgery, blocks for migraines. i & d ghazala elbows , Past Anesthesia/Blood Transfusion Reactions: Motion Sickness Past Psychological History: Anxiety, Bipolar, Depression Smoking Status: Current every day smoker Past Alcohol Use History: Daily, Heavy Past Drug Use History: Marijuana - Past Family History Father Family Medical History: Cancer Mother Family Medical History: Hyperlipidemia Brother(s) Additional Family Medical History / Comment(s): Bipolar, schizoprenia. General Exam Limitations: no limitations General appearance: alert, in no apparent distress Head exam: Present: atraumatic, normocephalic, normal inspection Eye exam: Present: normal appearance, PERRL, EOMI. Absent: scleral icterus, conjunctival injection, periorbital swelling ENT exam: Present: mucous membranes moist, TM's normal bilaterally, normal external ear exam. Absent: normal oropharynx (4 cm irregular laceration on lower lip, edentulous, dental fracture) Neck exam: Present: normal inspection, full ROM, other (Patient removed c-collar prior to evaluation). Absent: tenderness, meningismus, lymphadenopathy Respiratory exam: Present: normal lung sounds bilaterally. Absent: respiratory distress, wheezes, rales, rhonchi, stridor Cardiovascular Exam: Present: regular rate, normal rhythm, normal heart sounds. Absent: systolic murmur, diastolic murmur, rubs, gallop, clicks GI/Abdominal exam: Present: soft, normal bowel sounds. Absent: distended, tenderness, guarding, rebound, rigid Neurological exam: Present: alert, oriented X3, CN II-XII intact, reflexes normal. Absent: motor sensory deficit Course Vital Signs 12/21/23 12/21/23 05:42 07:27 Temperature 98.2 F Pulse Rate 98 96 Respiratory 18 18 Rate Blood Pressure 131/90 120/78 O2 Sat by Pulse 98 94 L Oximetry Procedures - Laceration Laceration #1 Consent Obtained: verbal consent Indication: laceration Site: face, lip Size (cm): 3 Description: irregular Depth: simple, single layer Anesthetic Used: lidocaine 1%, without epi Anesthesia Technique: local infiltration Amount (mls): 3 Pre-repair: wound explored, irrigated extensively, deep structures intact Type of Sutures: nylon Size of Sutures: 6-0 Number of Sutures: 9 Patient Tolerated Procedure: well, no complications Medical Decision Making - Medical Decision Making Was pt. sent in by a medical professional or institution (Dr. PA, DOORKEEPER, urgent care, hospital, or half-way...) When possible be specific @ -No Did you speak to anyone other than the patient for history (EMS, parent, family, police, friend...)? What history was obtained from this source @ -EMS providing prehospital treatment and vitals, complaint Did you review nursing and triage notes (agree or disagree)? Why? @ -I reviewed and agree with nursing and triage notes Were old charts reviewed (outside hosp., previous admission, EMS record, old EKG, old radiological studies, urgent care reports/EKG's, half-way records)? Report findings @ -No old charts were reviewed Differential Diagnosis (chest pain, altered mental status, abdominal pain women, abdominal pain men, vaginal bleeding, weakness, fever, dyspnea, syncope, headache, dizziness, GI bleed, back pain, seizure, CVA, palpatations, mental health, musculoskeletal)? @ -Fall, intracranial hemorrhage, facial fracture, dental fracture, lip laceration, syncope EKG interpreted by me (3pts min.). @ -As above X-rays interpreted by me (1pt min.). @ -None done CT interpreted by me (1pt min.). @ -CT brain, C-spine shows maxillary incisor fracture, no acute cervical fracture, no intracranial hemorrhage or mass effect U/S interpreted by me (1pt. min.). @ -None done What testing was considered but not performed or refused? (CT, X-rays, U/S, labs)? Why? @ -None What meds were considered but not given or refused? Why? @ -None Did you discuss the management of the patient with other professionals (castillo guidry i.eRobin Vega, PA, DOORKEEPER, lab, RT, psych nurse, social service technician, appliance counselor, teacher, program officer, case consultant)? Give summary @ -No Was smoking cessation discussed for >3mins.? @ -No Was critical care preformed (if so, how long)? @ -No Were there social determinants of health that impacted care today? How? (Homelessness, low income, unemployed, alcoholism, drug addiction, transportation, low edu. Level, literacy, decrease access to med. care, residential, rehab)? @ -No Was there de-escalation of care discussed even if they declined (Discuss DNR or withdrawal of care, Hospice)? DNR status @ -No What co-morbidities impacted this encounter? (DM, HTN, Smoking, COPD, CAD, Cancer, CVA, ARF, Chemo, Hep., AIDS, mental health diagnosis, sleep apnea, morbid obesity)? @ -Alcohol abuse Was patient admitted / discharged? Hospital course, mention meds given and route, prescriptions, significant lab abnormalities, going to OR and other pertinent info. @ -[Discharged patient had a fall, possible loss conscious. Patient is at baseline he has no complaints other than lip laceration which was repaired patient is acutely intoxicated will be discharged to sober person. Patient was given strict return parameters. Undiagnosed new problem with uncertain prognosis? @ -No Drug Therapy requiring intensive monitoring for toxicity (Heparin, Nitro, Insulin, Cardizem)? @ -No Were any procedures done? @ -No Diagnosis/symptom? @ -Fall, lip laceration, alcohol intoxication Acute, or Chronic, or Acute on Chronic? @ -[Acute Uncomplicated (without systemic symptoms) or Complicated (systemic symptoms)? @ -Uncomplicated Side effects of treatment? @ -[No Exacerbation, Progression, or Severe Exacerbation? @ -No Poses a threat to life or bodily function? How? (Chest pain, [place], [place], pneumonia, PE, COPD, DKA, ARF, appy, cholecystitis, CVA, Diverticulitis, Homicidal, Suicidal, threat to staff... and all critical care pts) @ -No - Lab Data Result diagrams: 12/21/23 06:12 12/21/23 06:12 Lab Results 12/21/23 12/21/23 Range/Units 06:12 06:12 WBC 9.4 (3.8-10.6) k/uL RBC 2.78 L (4.30-5.90) m/uL Hgb 8.4 L (13.0-17.5) gm/dL Hct 25.9 L (39.0-53.0) % MCV 93.0 (80.0-100.0) fL MCH 30.4 (25.0-35.0) pg MCHC 32.6 (31.0-37.0) g/dL RDW 17.1 H (11.5-15.5) % Plt Count 505 H (150-450) k/uL MPV 7.3 Neutrophils % 67 % Lymphocytes % 19 % Monocytes % 8 % Eosinophils % 3 % Basophils % 1 % Neutrophils # 6.3 (1.3-7.7) k/uL Lymphocytes # 1.8 (1.0-4.8) k/uL Monocytes # 0.7 (0-1.0) k/uL Eosinophils # 0.3 (0-0.7) k/uL Basophils # 0.1 (0-0.2) k/uL Hypochromasia Slight Anisocytosis Slight Sodium 134 L (137-145) mmol/L Potassium 3.9 (3.5-5.1) mmol/L Chloride 102 (98-107) mmol/L Carbon Dioxide 20 L (22-30) mmol/L Anion Gap 12 mmol/L BUN 10 (9-20) mg/dL Creatinine 0.59 L (0.66-1.25) mg/dL Est GFR (CKD-EPI)AfAm >90 (>60 ml/min/1.73 sqM) Est GFR (CKD-EPI)NonAf >90 (>60 ml/min/1.73 sqM) Glucose 96 (74-99) mg/dL Calcium 8.6 (8.4-10.2) mg/dL Magnesium 1.2 L (1.6-2.3) mg/dL Total Bilirubin 0.2 (0.2-1.3) mg/dL AST 52 (17-59) U/L ALT 22 (4-49) U/L Alkaline Phosphatase 103 (38-126) U/L Total Protein 7.5 (6.3-8.2) g/dL Albumin 3.7 (3.5-5.0) g/dL Serum Alcohol 215 H* mg/dL - EKG Data -: EKG Interpreted by Me EKG Comments: EKG performed at 5: 48 sinus rhythm with a left bundle noted, rate of 82 SD 194 QRS 154 QT/QTc 411/449 Disposition Clinical Impression: Lip laceration, Alcohol intoxication, Tooth fracture Disposition: HOME SELF-CARE Condition: Stable Instructions (If sedation given, give patient instructions): Laceration (ED), Care For Your Stitches (ED) Additional Instructions: Have sutures removed in 7 days. Please return to the Emergency Department if symptoms worsen or any other concerns. Is patient prescribed a controlled substance at d/c from ED?: No Referrals: Mateusz Gloria DO [Primary Care Provider] - 1-2 days Time of Disposition: 08:05
== END 2023-12-21 08:45 | disposition home or self-care (01) ==
LOC: EC 05:41
DX: S01.511A Laceration without foreign body of lip, initial encounter (principal); S02.5XXA Fracture of tooth (traumatic), initial encounter for closed fracture; F10.129 Alcohol abuse with intoxication, unspecified; J44.9 Chronic obstructive pulmonary disease, unspecified; K21.9 Gastro-esophageal reflux disease without esophagitis; F41.9 Anxiety disorder, unspecified; F31.9 Bipolar disorder, unspecified; F12.90 Cannabis use, unspecified, uncomplicated; F17.200 Nicotine dependence, unspecified, uncomplicated; Z79.899 Other long term (current) drug therapy; W10.8XXA Fall (on) (from) other stairs and steps, initial encounter; Y90.7 Blood alcohol level of 200-239 mg/100 ml
CPT/HCPCS: 36415; 80053; 83735; 85025; 80320; 72125; 70450; 12013; 99285; 96365; J3475

== ENCOUNTER → 2024-01-01 | Outpatient (CLI) | payer MEDICARE, OTHER ==
[2024-01-01 16:08] LABS: ALT 14 U/L (10-49); AST 35 U/L (14-35); Albumin 3.8 g/dL (3.8-4.9); Albumin/Globulin Ratio 0.95 Ratio (1.60-3.17); Alkaline Phosphatase 121 U/L (41-126); Blood Urea Nitrogen 11.2 mg/dL (9.0-27.0); Calcium 8.8 mg/dL (8.7-10.3); Carbon Dioxide 22.1 mmol/L (21.6-31.8); Chloride 95 mmol/L (96-109); Glucose 83 mg/dL (70-110); Magnesium 1.1 mg/dL (1.5-2.4); Potassium 4.3 mmol/L (3.5-5.5); Sodium 133 mmol/L (135-145); Total Bilirubin 0.3 mg/dL (0.3-1.2); Total Protein 7.8 g/dL (6.2-8.2)
[2024-01-01 17:14] LABS: PSA Annual Screen 0.573 ng/mL (0.000-4.000)
[2024-01-01 17:25] LABS: Basophils # (A) 0.09 X 10*3/uL (0.00-0.10); Basophils % (A) 1.3 %; Eosinophils # (A) 0.08 X 10*3/uL (0.04-0.35); Eosinophils % (A) 1.2 %; HGB 9.1 g/dL (13.0-17.0); Hypochromasia (M) 2+; Lymphocytes % (A) 24.9 %; MCH 28.2 pg (27.0-32.0); MCHC 32.5 g/dL (32.0-37.0); MCV 86.7 FL (80.0-97.0); Mean Platelet Volume 9.6 FL (9.5-12.2); Monocytes # (A) 0.66 X 10*3/uL (0.20-1.00); Monocytes % (A) 9.6 %; NRBC Per 100 WBC 0 X 10*3/uL (0.00-0.01); Neutrophils # (A) 4.28 X 10*3/uL (1.80-7.70); Neutrophils % (A) 62.6 %; Platelet Count 479 X 10*3/uL (140-440); RBC 3.23 X 10*6/uL (4.40-5.60); RDW 18.4 % (11.5-14.5); Target Cells 2+; WBC 6.84 X 10*3/uL (4.50-10.00)
== END | disposition home or self-care (01) ==
LOC: LABWHC1 11:26
PROVIDERS: ATTEND Internal Medicine
DX: Z00.00 Encounter for general adult medical examination without abnormal findings (principal); Z12.5 Encounter for screening for malignant neoplasm of prostate; Z11.59 Encounter for screening for other viral diseases; K21.9 Gastro-esophageal reflux disease without esophagitis; F41.9 Anxiety disorder, unspecified; F10.10 Alcohol abuse, uncomplicated
CPT/HCPCS: 86803; 80061; 80053; 84443; 82607; 82746; 83735; 85025; 36415; G0103

== ENCOUNTER 2024-02-05 07:26 | Day surgery (SDC) | payer MEDICARE, OTHER ==
[~2024-02-05 07:26] MED LIST changes: +DEXAMETHASONE SOD PHOSPHATE 4 MG/ML 1 ML VIAL IV ONE; +HYDROmorphone 0.5 MG/0.5 ML SYRINGE IVP PRN; -LACTATED RINGERS 1,000 ML IV SCH; +ONDANSETRON 4 MG/2 ML VIAL IVP ONE
[2024-02-05 08:10] VITALS: TEMP 97.3
[2024-02-05] MEDS: LACTATED RINGERS 1,000 ML IV SCH (08:12)
[2024-02-05] MEDS ORDERED: LIDOCAINE 1% INJ 10MG/ML (20 ML MDV) ONE (08:58)
[2024-02-05] MEDS ORDERED: PROPOFOL 10 MG/ML 20 ML VIAL IV ONE (08:58)
--- NOTE | 2024-02-05 09:12 | P.PCN ---
Date of Procedure: 02/05/24 Procedure(s) Performed: BRIEF HISTORY: Patient is a 58-year-old, pleasant, white male male scheduled for an upper endoscopy as a part of evaluation of long-standing history of GERD. He is on omeprazole 20 mg daily. Lately has been having intermittent epigastric pain associated with nausea vomiting.. PROCEDURE PERFORMED: Esophagogastroduodenoscopy with biopsy. PREOPERATIVE DIAGNOSIS: Long-standing history of GERD/intermittent epigastric pain and nausea vomiting. IV sedation per anesthesia. PROCEDURE: After informed consent was obtained, the patient was brought into the endoscopy unit. IV sedation was administered by Anesthesia under continuous monitoring. Initially the Olympus GIF-140 video endoscope was inserted into the mouth. Esophagus intubated without any difficulty. It was gradually advanced into the stomach and duodenum and carefully examined. The bulb and the second part of the duodenum appeared normal. The scope at this time was withdrawn to the stomach, adequately insufflated with air, and upon careful examination, mucosa of the antrum had a few patchy areas of erythema consistent with gastritis and biopsies were done from this area. Mucosa of the, body, cardia and the fundus appeared normal. The scope was then withdrawn into the esophagus. The GE junction was located at 39 cm from the incisors. Small hiatal hernia. There was a short tongue of Hennessy's appearing mucosa extending 3 mm proximal to the GE junction which was biopsied. The rest of the esophagus appeared normal. There were no erosions or ulcerations seen and the patient tolerated the procedure well. IMPRESSION: 1.. Small hiatal hernia and short segment Hennessy's esophagus. 2. Mild antral gastritis. 3. No evidence of peptic ulcer disease.. RECOMMENDATIONS: The findings of this examination were discussed with the patientas well as his family. He was advised to follow with the biopsy results. Recommended that he increase omeprazole to 20 mg twice daily for 3 months and to be taken half hour before breakfast and dinnertime and follow antrum reflux measures.].
[2024-02-05 09:25] VITALS: RESP 16
[2024-02-05 09:59] VITALS: BP 125/82; PULSE 59
== END 2024-02-05 09:45 | disposition home or self-care (01) ==
LOC: ORWHC2ENDO 07:26
PROVIDERS: ATTEND Internal Medicine Gastroenterology
DX: K21.00 Gastro-esophageal reflux disease with esophagitis, without bleeding (principal); K29.70 Gastritis, unspecified, without bleeding; K22.70 Barrett's esophagus without dysplasia; K44.9 Diaphragmatic hernia without obstruction or gangrene; K31.9 Disease of stomach and duodenum, unspecified; J44.9 Chronic obstructive pulmonary disease, unspecified; G40.909 Epilepsy, unspecified, not intractable, without status epilepticus; G62.9 Polyneuropathy, unspecified; F17.210 Nicotine dependence, cigarettes, uncomplicated; Z79.899 Other long term (current) drug therapy; Z79.51 Long term (current) use of inhaled steroids; Z98.890 Other specified postprocedural states
CPT/HCPCS: 88305; 43239; J2001; J2704

== ENCOUNTER → 2024-02-05 | Outpatient (CLI) | payer MEDICARE, OTHER ==
[2024-02-06 03:03] LABS: HCT 31.4 % (39.6-50.0); HGB 10.5 g/dL (13.0-17.0); MCH 30.3 pg (27.0-32.0); MCHC 33.4 g/dL (32.0-37.0); MCV 90.8 FL (80.0-97.0); Mean Platelet Volume 12.1 FL (9.5-12.2); NRBC Per 100 WBC 0 X 10*3/uL (0.00-0.01); Platelet Count 109 X 10*3/uL (140-440); RBC 3.46 X 10*6/uL (4.40-5.60); RDW 22.2 % (11.5-14.5)
[2024-02-06 03:53] LABS: % Iron Saturation 65.22 (15.00-50.00); Iron 165 UG/DL (65-175); Magnesium 1.5 mg/dL (1.5-2.4); Total Iron Binding Capacity 253 UG/DL (228-460)
[2024-02-06 04:21] LABS: BUN/Creat Ratio 20.71 Ratio (12.00-20.00); Chloride 85 mmol/L (96-109); Glucose 129 mg/dL (70-110); Potassium 4.6 mmol/L (3.5-5.5); Sodium 123 mmol/L (135-145)
[2024-02-06 04:22] LABS: ALT 73 U/L (10-49); AST 226 U/L (14-35); Albumin/Globulin Ratio 0.91 Ratio (1.60-3.17); Alkaline Phosphatase 428 U/L (41-126); Calcium 9.3 mg/dL (8.7-10.3); Carbon Dioxide 16.5 mmol/L (21.6-31.8); Globulin 4.4 g/dL (1.6-3.3); Total Bilirubin 1.2 mg/dL (0.3-1.2); Total Protein 8.4 g/dL (6.2-8.2)
[2024-02-06 05:01] LABS: Anisocytosis (M) 2+; Basophils # (A) 0.01 X 10*3/uL (0.00-0.10); Basophils % (A) 0.1 %; Eosinophils # (A) 0 X 10*3/uL (0.04-0.35); Eosinophils % (A) 0 %; Lymphocytes # (A) 1.23 X 10*3/uL (0.90-5.00); Lymphocytes % (A) 17.3 %; Monocytes # (A) 0.67 X 10*3/uL (0.20-1.00); Monocytes % (A) 9.4 %; Neutrophils # (A) 5.16 X 10*3/uL (1.80-7.70); Neutrophils % (A) 72.8 %
== END | disposition home or self-care (01) ==
LOC: LABWHC1 16:20
PROVIDERS: ATTEND Internal Medicine
DX: K21.9 Gastro-esophageal reflux disease without esophagitis (principal); D64.9 Anemia, unspecified; E83.42 Hypomagnesemia
CPT/HCPCS: 36415; 80053; 82607; 82728; 82746; 83540; 83550; 83735; 85025

== ENCOUNTER → 2024-02-07 | Outpatient (CLI) | payer MEDICARE, OTHER ==
[2024-02-07 14:36] LABS: Anisocytosis Moderate; Basophils % (A) 0 %; Eosinophils # (A) 0.1 k/uL (0-0.7); Eosinophils % (A) 1 %; HCT 30.7 % (39.0-53.0); HGB 10.4 gm/dL (13.0-17.5); Lymphocytes # (A) 1.1 k/uL (1.0-4.8); Lymphocytes % (A) 14 %; MCH 31.7 pg (25.0-35.0); MCV 93.2 fL (80.0-100.0); Macrocytosis Slight; Mean Platelet Volume 8.2; Monocytes # (A) 0.4 k/uL (0-1.0); Monocytes % (A) 5 %; Neutrophils # (A) 6.2 k/uL (1.3-7.7); Neutrophils % (A) 79 %; RBC 3.29 m/uL (4.30-5.90); RDW 20.7 % (11.5-15.5); WBC 7.9 k/uL (3.8-10.6)
[2024-02-07 14:51] LABS: Platelet Count 158 k/uL (150-450)
[2024-02-07 18:57] LABS: Protein, Total 8.4 g/dL (6.2-8.2)
[2024-02-07 20:27] LABS: Hepatitis A Antibody IgM Nonreactive; Hepatitis B Core IgM Nonreactive; Hepatitis B Surface Antigen Nonreactive; Hepatitis C IgG Antibody Nonreactive
[2024-02-08 16:10] LABS: Gamma Globulin 2.08 g/dL (0.70-1.50)
[2024-02-08 16:13] LABS: Iron 181 UG/DL (65-175); Magnesium 1.2 mg/dL (1.5-2.4); Total Iron Binding Capacity 273 UG/DL (228-460)
[2024-02-08 16:17] LABS: ALT 99 U/L (10-49); AST 315 U/L (14-35); Alkaline Phosphatase 564 U/L (41-126); BUN/Creat Ratio 12.33 Ratio (12.00-20.00); Blood Urea Nitrogen 11.1 mg/dL (9.0-27.0); Carbon Dioxide 20.5 mmol/L (21.6-31.8); Chloride 81 mmol/L (96-109); Glucose 130 mg/dL (70-110); Potassium 4.2 mmol/L (3.5-5.5); Sodium 119 mmol/L (135-145); Total Bilirubin 1.4 mg/dL (0.3-1.2)
== END | disposition home or self-care (01) ==
LOC: LABWHC1 13:52
PROVIDERS: ATTEND Internal Medicine
DX: E87.1 Hypo-osmolality and hyponatremia (principal); D64.9 Anemia, unspecified; E83.42 Hypomagnesemia; R74.01 Elevation of levels of liver transaminase levels
CPT/HCPCS: 36415; 80053; 80074; 82533; 82728; 83540; 83550; 83735; 83935; 84165; 84300; 84443; 85025; 86334

== ENCOUNTER 2024-02-08 18:13 | Inpatient (IN) | payer MEDICARE, OTHER ==
[2024-02-08 18:46] LABS: Anisocytosis Moderate; Basophils % (A) 0 %; Eosinophils # (A) 0.1 k/uL (0-0.7); Eosinophils % (A) 1 %; HCT 32.1 % (39.0-53.0); HGB 10.5 gm/dL (13.0-17.5); Lymphocytes # (A) 1.2 k/uL (1.0-4.8); Lymphocytes % (A) 17 %; MCH 30.9 pg (25.0-35.0); MCHC 32.8 g/dL (31.0-37.0); MCV 94.2 fL (80.0-100.0); Macrocytosis Slight; Mean Platelet Volume 8.8; Monocytes # (A) 0.4 k/uL (0-1.0); Monocytes % (A) 6 %; Neutrophils # (A) 5.3 k/uL (1.3-7.7); Neutrophils % (A) 75 %; Platelet Count 152 k/uL (150-450); RBC 3.41 m/uL (4.30-5.90); RDW 20.8 % (11.5-15.5); WBC 7.1 k/uL (3.8-10.6)
[2024-02-08 20:44] LABS: ALT 95 U/L (4-49); AST 270 U/L (17-59); African American GFR (CKD) >90 (>60 ml/min/1.73 sqM); Albumin 4.2 g/dL (3.5-5.0); Alcohol 48 mg/dL; Alkaline Phosphatase 578 U/L (38-126); Anion Gap 13 mmol/L; Blood Urea Nitrogen 9 mg/dL (9-20); Calcium 8.8 mg/dL (8.4-10.2); Carbon Dioxide 21 mmol/L (22-30); Chloride 84 mmol/L (98-107); Glucose 80 mg/dL (74-99); Non-African American GFR(CKD) 82 (>60 ml/min/1.73 sqM); Potassium 4.1 mmol/L (3.5-5.1); Total Bilirubin 1.3 mg/dL (0.2-1.3); Total Protein 8.6 g/dL (6.3-8.2)
[2024-02-08 20:48] LABS: Sodium 118 mmol/L (137-145)
[2024-02-08 21:06] LABS: Appearance,Urine Clear (Clear); Bilirubin,Urine Negative (Negative); Blood,Urine Negative (Negative); Color,Urine Colorless; Glucose,Urine (UA) Negative (Negative); Ketones,Urine Negative (Negative); Leukocyte Esterase,Urine Negative (Negative); Nitrite,Urine Negative (Negative); PH, Urine 6.5 (5.0-8.0); Protein,Urine Negative (Negative); Specific Gravity,Urine 1.003 (1.001-1.035); Urobilinogen,Urine <2.0 mg/dL (<2.0)
[2024-02-08] MEDS: SODIUM CHLORIDE 0.9% 1,000 ML IV ONE (21:24)
--- NOTE | 2024-02-08 21:26 | ED ---
General Adult HPI - General Chief complaint: Recheck/Abnormal Lab/Rx Stated complaint: Abnormal Labs,Low Sodium Time Seen by Provider: 02/08/24 18:20 Source: EMS Mode of arrival: EMS Limitations: no limitations - History of Present Illness Initial comments: 58-year-old male presents to the emergency department with abnormal labs. Patient has a history of hyponatremia secondary to poor solute intake. Patient is an alcoholic. He has been hospitalized previously for hyponatremia. He continues to drink. His primary care physician has been doing laboratory studies in the outpatient setting. He was found to have significantly low sodium and was called by his primary care stating that he had to go into the hospital for admission. Patient denies having symptoms. - Related Data Home Medications Medication Instructions Recorded Confirmed Albuterol Sulfate [Proair Hfa] 2 puff INHALATION RT-Q4H PRN 08/16/21 02/08/24 busPIRone HCL 5 mg PO BID 08/16/21 02/08/24 traZODone HCL 50 mg PO HS PRN 08/16/21 02/08/24 Fluticasone/Umeclidin/Vilanter 1 puff INHALATION RT-DAILY 02/01/24 02/08/24 [Trelegy Ellipta 100-62.5-25] Ammonium Lactate Lotion 1 applic TOPICAL BID PRN 02/08/24 02/08/24 [Lac-Hydrin 12% Lotion] cefUROXime axetiL [Ceftin] 500 mg PO BID 02/08/24 02/08/24 Previous Rx's Medication Instructions Recorded Acetaminophen Tab [Tylenol] 650 mg PO Q6HR PRN tab 12/01/21 Diltiazem Cd [Cardizem CD] 120 mg PO DAILY #30 cap 02/13/24 Ferrous Sulfate [Iron (65 MG 325 mg PO BID-W/MEALS #30 tab 02/13/24 Elemental)] Folic Acid 1 mg PO DAILY #30 tab 02/13/24 Magnesium Oxide [Mag-Ox] 400 mg PO BID #60 tab 02/13/24 Sodium Chloride Tab 1 gm PO DAILY #2 tablet 02/13/24 Thiamine [Vitamin B-1] 100 mg PO DAILY #30 tab 02/13/24 Allergies Allergy/AdvReac Type Severity Reaction Status Date / Time No Known Allergies Allergy Verified 02/08/24 21:15 Review of Systems ROS Statement: Those systems with pertinent positive or pertinent negative responses have been documented in the HPI. ROS Other: All systems not noted in ROS Statement are negative. Past Medical History Past Medical History: COPD, GERD/Reflux, Pneumonia, Seizure Disorder, Syncope Additional Past Medical History / Comment(s): Neuropathy feet and arms in base of neck. Severe ETOH abuse. Hx alcohol withdrawal seizures/DTs, 1 yr ago, aspiration pneumonia, encephalopathy d/t alcohol, thrombocytopenia, chronic SOB. 3 years since only seizure. looking at disc issues will be sent to specialist. healing wound to rt great toe where it was amputated,dressed.completed abx(cefazolin) via torres to rt chest, visiting nurse once a week now. pt is a fair historian History of Any Multi-Drug Resistant Organisms: None Reported Past Surgical History: Ear Surgery, Tonsillectomy Additional Past Surgical History / Comment(s): Bilateral mastoidectomies, sinus surgery and vocal cord scraping, cataract surgery, blocks for migraines. i & d ghazala elbows , torres, amputation of rt grt toe., torres removed 02/04/24 Past Anesthesia/Blood Transfusion Reactions: No Reported Reaction Past Psychological History: Anxiety, Bipolar, Depression Smoking Status: Current every day smoker Past Alcohol Use History: Daily, Heavy Past Drug Use History: Marijuana - Past Family History Father Family Medical History: Cancer Mother Family Medical History: Hyperlipidemia Brother(s) Additional Family Medical History / Comment(s): Bipolar, schizoprenia. General Exam Limitations: no limitations General appearance: alert, in no apparent distress Head exam: Present: atraumatic, normocephalic, normal inspection Eye exam: Present: normal appearance, PERRL, EOMI. Absent: scleral icterus, conjunctival injection, periorbital swelling ENT exam: Present: normal exam, mucous membranes moist Neck exam: Present: normal inspection. Absent: tenderness, meningismus, lymphadenopathy Respiratory exam: Present: normal lung sounds bilaterally. Absent: respiratory distress, wheezes, rales, rhonchi, stridor Cardiovascular Exam: Present: regular rate, normal rhythm, normal heart sounds. Absent: systolic murmur, diastolic murmur, rubs, gallop, clicks GI/Abdominal exam: Present: soft, normal bowel sounds. Absent: distended, tenderness, guarding, rebound, rigid Extremities exam: Present: normal inspection, full ROM, normal capillary refill. Absent: tenderness, pedal edema, joint swelling, calf tenderness Back exam: Present: normal inspection Neurological exam: Present: alert, oriented X3, CN II-XII intact Psychiatric exam: Present: normal affect, normal mood Skin exam: Present: warm, dry, intact, normal color. Absent: rash Course Vital Signs 02/08/24 02/08/24 02/08/24 18:16 20:13 23:12 Temperature 97.9 F Pulse Rate 71 73 74 Respiratory 18 19 18 Rate Blood Pressure 137/86 118/82 110/72 O2 Sat by Pulse 99 99 Oximetry Medical Decision Making - Medical Decision Making Was pt. sent in by a medical professional or institution (, PA, HRIS MANAGER, urgent care, hospital, or long term...) When possible be specific @ -Patient was sent in by his primary care doctor Did you speak to anyone other than the patient for history (EMS, parent, family, police, friend...)? What history was obtained from this source @ -I spoke with EMS who transported the patient in Did you review nursing and triage notes (agree or disagree)? Why? @ -I reviewed and agree with nursing and triage notes Were old charts reviewed (outside hosp., previous admission, EMS record, old EKG, old radiological studies, urgent care reports/EKG's, long term records)? Report findings @ -I reviewed patient's previous nephrology consultation where Dr. Doyle felt that the patient's hyponatremia was due to poor solute intake Differential Diagnosis (chest pain, altered mental status, abdominal pain women, abdominal pain men, vaginal bleeding, weakness, fever, dyspnea, syncope, headache, dizziness, GI bleed, back pain, seizure, CVA, palpatations, mental health, musculoskeletal)? @ -Differential Hypoglycemia, shock, sepsis, hyponatremia, anemia, infection, [place], ETOH, adverse medicine reaction, overdose, stroke, this is not meant to be an all-inclusive list. EKG interpreted by me (3pts min.). @ -Yes and demonstrates sinus rhythm with a rate of 72. VA interval 187. QRS 118. QTc of 400. Some J-point elevation in 2, 3, aVF. No reciprocal changes X-rays interpreted by me (1pt min.). @ -None done CT interpreted by me (1pt min.). @ -None done U/S interpreted by me (1pt. min.). @ -None done What testing was considered but not performed or refused? (CT, X-rays, U/S, labs)? Why? @ -None What meds were considered but not given or refused? Why? @ -None Did you discuss the management of the patient with other professionals (maris arevalo i.e. , PA, HRIS MANAGER, lab, RT, psych nurse, director social service, seismometer operator, teacher, public health service officer, ed case manager)? Give summary @ -Spoke with Dr. Larson who will hospitalize the patient Was smoking cessation discussed for >3mins.? @ -No Was critical care preformed (if so, how long)? @ -No Were there social determinants of health that impacted care today? How? (Homelessness, low income, unemployed, alcoholism, drug addiction, transportation, low edu. Level, literacy, decrease access to med. care, longterm, rehab)? @ -No Was there de-escalation of care discussed even if they declined (Discuss DNR or withdrawal of care, Hospice)? DNR status @ -No What co-morbidities impacted this encounter? (DM, HTN, Smoking, COPD, CAD, Cancer, CVA, ARF, Chemo, Hep., AIDS, mental health diagnosis, sleep apnea, mor bid obesity)? @ -EtOH abuse Was patient admitted / discharged? Hospital course, mention meds given and route, prescriptions, significant lab abnormalities, going to OR and other pertinent info. @ -Upon arrival patient was placed into room 3. Thorough history and physical exam was performed. I did review the patient's outpatient labs. I did conduct my own labs. I additionally sent urinalysis studies and serum osmole. These are send out labs and therefore are not available today to treat the patient. I feel that the patient likely has hyponatremia due to poor solute intake again. I called and spoke with Dr. Arriaga who is on for nephrology. Recommends that the patient be started on 75 cc of normal saline per hour with repeat sodium checks every 3 hours. Patient was agreeable to admission. Currently awaiting a bed on the floor Undiagnosed new problem with uncertain prognosis? @ -No Drug Therapy requiring intensive monitoring for toxicity (Heparin, Nitro, Insulin, Cardizem)? @ -No Were any procedures done? @ -No Diagnosis/symptom? @ -Acute hyponatremia, history of EtOH use Acute, or Chronic, or Acute on Chronic? @ -Acute Uncomplicated (without systemic symptoms) or Complicated (systemic symptoms)? @ -Complicated Side effects of treatment? @ -No Exacerbation, Progression, or Severe Exacerbation? @ -No Poses a threat to life or bodily function? How? (Chest pain, [place], [place], pneumonia, PE, COPD, DKA, ARF, appy, cholecystitis, CVA, Diverticulitis, Homicidal, Suicidal, threat to staff... and all critical care pts) @ -No - Lab Data Result diagrams: 02/13/24 06:29 02/13/24 06:29 Lab Results 02/08/24 02/08/24 02/08/24 Range/Units 18:38 18:38 18:38 WBC 7.1 (3.8-10.6) k/uL RBC 3.41 L (4.30-5.90) m/uL Hgb 10.5 L (13.0-17.5) gm/dL Hct 32.1 L (39.0-53.0) % MCV 94.2 (80.0-100.0) fL MCH 30.9 (25.0-35.0) pg MCHC 32.8 (31.0-37.0) g/dL RDW 20.8 H (11.5-15.5) % Plt Count 152 (150-450) k/uL MPV 8.8 Neutrophils % 75 % Lymphocytes % 17 % Monocytes % 6 % Eosinophils % 1 % Basophils % 0 % Neutrophils # 5.3 (1.3-7.7) k/uL Lymphocytes # 1.2 (1.0-4.8) k/uL Monocytes # 0.4 (0-1.0) k/uL Eosinophils # 0.1 (0-0.7) k/uL Basophils # 0.0 (0-0.2) k/uL Anisocytosis Moderate Macrocytosis Slight Sodium (137-145) mmol/L Potassium (3.5-5.1) mmol/L Chloride (98-107) mmol/L Carbon Dioxide (22-30) mmol/L Anion Gap mmol/L BUN (9-20) mg/dL Creatinine (0.66-1.25) mg/dL Est GFR (CKD-EPI)AfAm (>60 ml/min/1.73 sqM) Est GFR (CKD-EPI)NonAf (>60 ml/min/1.73 sqM) Glucose (74-99) mg/dL Osmolality (275-295) mOsm/kg Calcium (8.4-10.2) mg/dL Total Bilirubin (0.2-1.3) mg/dL AST (17-59) U/L ALT (4-49) U/L Alkaline Phosphatase (38-126) U/L Total Protein (6.3-8.2) g/dL Albumin (3.5-5.0) g/dL Urine Color Urine Appearance (Clear) Urine pH (5.0-8.0) Ur Specific Macy (1.001-1.035) Urine Protein (Negative) Urine Glucose (UA) (Negative) Urine Ketones (Negative) Urine Blood (Negative) Urine Nitrite (Negative) Urine Bilirubin (Negative) Urine Urobilinogen (<2.0) mg/dL Ur Leukocyte Esterase (Negative) Urine Osmolality 108 L (400-1100) mOsm/kg Ur Random Creatinine 34.7 mg/dL Ur Random Sodium <20 L (40-220) mmol/L Serum Alcohol mg/dL 02/08/24 02/08/24 Range/Units 18:38 20:00 WBC (3.8-10.6) k/uL RBC (4.30-5.90) m/uL Hgb (13.0-17.5) gm/dL Hct (39.0-53.0) % MCV (80.0-100.0) fL MCH (25.0-35.0) pg MCHC (31.0-37.0) g/dL RDW (11.5-15.5) % Plt Count (150-450) k/uL MPV Neutrophils % % Lymphocytes % % Monocytes % % Eosinophils % % Basophils % % Neutrophils # (1.3-7.7) k/uL Lymphocytes # (1.0-4.8) k/uL Monocytes # (0-1.0) k/uL Eosinophils # (0-0.7) k/uL Basophils # (0-0.2) k/uL Anisocytosis Macrocytosis Sodium 118 L* (137-145) mmol/L Potassium 4.1 (3.5-5.1) mmol/L Chloride 84 L (98-107) mmol/L Carbon Dioxide 21 L (22-30) mmol/L Anion Gap 13 mmol/L BUN 9 (9-20) mg/dL Creatinine 1.01 (0.66-1.25) mg/dL Est GFR (CKD-EPI)AfAm >90 (>60 ml/min/1.73 sqM) Est GFR (CKD-EPI)NonAf 82 (>60 ml/min/1.73 sqM) Glucose 80 (74-99) mg/dL Osmolality 266 L (275-295) mOsm/kg Calcium 8.8 (8.4-10.2) mg/dL Total Bilirubin 1.3 (0.2-1.3) mg/dL AST 270 H (17-59) U/L ALT 95 H (4-49) U/L Alkaline Phosphatase 578 H (38-126) U/L Total Protein 8.6 H (6.3-8.2) g/dL Albumin 4.2 (3.5-5.0) g/dL Urine Color Colorless Urine Appearance Clear (Clear) Urine pH 6.5 (5.0-8.0) Ur Specific Macy 1.003 (1.001-1.035) Urine Protein Negative (Negative) Urine Glucose (UA) Negative (Negative) Urine Ketones Negative (Negative) Urine Blood Negative (Negative) Urine Nitrite Negative (Negative) Urine Bilirubin Negative (Negative) Urine Urobilinogen <2.0 (<2.0) mg/dL Ur Leukocyte Esterase Negative (Negative) Urine Osmolality (400-1100) mOsm/kg Ur Random Creatinine mg/dL Ur Random Sodium (40-220) mmol/L Serum Alcohol 48 mg/dL Disposition Clinical Impression: Hyponatremia, Alcohol intoxication Disposition: ADMITTED IP TO THIS [facility] Condition: Stable Is patient prescribed a controlled substance at d/c from ED?: No Time of Disposition: 21:26 Decision to Admit Reason: Admit from EC Decision Date: 02/08/24 Decision Time: 21:26
[2024-02-08] MEDS ORDERED: NALOXONE 0.4 MG/ML 1 ML VIAL IV PRN (21:46)
[2024-02-08] MEDS: SODIUM CHLORIDE 0.9% 1,000 ML IV SCH (21:48)
[2024-02-08 23:40] LABS: Creatinine,Urine Random 34.7 mg/dL
--- NOTE | 2024-02-09 00:27 | P.HPIM ---
History of Present Illness H&P Date: 02/08/24 Patient is a 58-year-old male with a PMH of alcohol abuse with alcohol withdrawal seizures, COPD, and peripheral neuropathy who presents to the emergency room sent in by his PCP for hyponatremia. Patient reports that over the past few days, he has been experiencing epigastric abdominal discomfort and occasional nausea and vomiting. As a result, he reports significantly diminished oral intake of solid food. He reports longstanding history of alcohol abuse, currently drinking half a pint of vodka daily. Also reports feeling weak throughout. Denied experiencing headaches or visual disturbances. Denied fever, chills, cough. Laboratory evaluation in the emergency room was remarkable for sodium 118, chloride 84, CO2 21, BUN 9, creatinine 1.01, AST 270, ALT 95, alk phos 578, unremarkable UA, and serum alcohol level 48 with hemoglobin 10.5. ED documentation reviewed and case discussed with ED provider. Review of systems: Pertinent positives and negatives as discussed in HPI, a complete review of systems was performed and all other systems are negative. Physical examination: Vital signs reviewed General: non toxic, no distress, appears at stated age, normal weight Derm: no unusual rashes/lesions, warm Head: atraumatic, normocephalic, symmetric Eyes: EOMI, no lid lag, anicteric sclera, pupils equal round reactive to light ENT: Nose and ears atraumatic Neck: No cervical lymphadenopathy, trachea midline, supple Mouth: no lip lesion, mucus membranes moist Cardiovascular: S1S2 reg, no murmur, positive dorsalis pedis pulse bilateral, no edema Lungs: CTA bilateral, no rhonchi, no rales, no accessory muscle use Abdominal: soft, minimal epigastric tenderness, no guarding Ext: muscle strength 5 out of 5 in all 4 extremities grossly, no gross muscle atrophy, no contractures, status post right great toe amputation with 2 cm wound with clean and dry dressing well-healing without surrounding erythema or induration Neuro: CN II-XI grossly intact, no gross focal neuro deficits Psych: Alert, oriented, appropriate affect Assessment: Severe hyponatremia, chronic, asymptomatic Transaminitis, likely due to ongoing alcohol abuse Normocytic anemia, at baseline Chronic conditions: COPD, peripheral neuropathy Imaging: None performed Data Review: Laboratory evaluation in the emergency room was remarkable for sodium 118, chloride 84, CO2 21, BUN 9, creatinine 1.01, AST 270, ALT 95, alk phos 578, unremarkable UA, and serum alcohol level 48 with hemoglobin 10.5. Plan: Monitor sodium levels every 2 to 3 hours and avoid overcorrection with goal no greater than 8 to 10 mmol/L in 24 hours Follow-up hyponatremia workup although suspect euvolemic hyponatremia due to decreased solute intake Nephrology consulted Cardiac monitoring Fall precautions Case discussed by ED provider with protein purification scientist property assessment monitor who recommended IVFs with NS 75 cc/hr Check lipase levels DVT prophylaxis: Lovenox subcu The patient is admitted with an anticipated greater than 2 midnight stay for evaluation of hyponatremia CODE STATUS: Full Code Discussed with: Patient Anticipated discharge place: Home Past Medical History Past Medical History: COPD, GERD/Reflux, Pneumonia, Seizure Disorder, Syncope Additional Past Medical History / Comment(s): Neuropathy feet and arms in base of neck. Severe ETOH abuse. Hx alcohol withdrawal seizures/DTs, 1 yr ago, aspiration pneumonia, encephalopathy d/t alcohol, thrombocytopenia, chronic SOB. 3 years since only seizure. looking at disc issues will be sent to specialist. healing wound to rt great toe where it was amputated,dressed.completed abx(cefazolin) via torres to rt chest, visiting nurse once a week now. pt is a fair historian History of Any Multi-Drug Resistant Organisms: None Reported Past Surgical History: Ear Surgery, Tonsillectomy Additional Past Surgical History / Comment(s): Bilateral mastoidectomies, sinus surgery and vocal cord scraping, cataract surgery, blocks for migraines. i & d ghazala elbows , torres, amputation of rt grt toe., torres removed 02/04/24 Past Anesthesia/Blood Transfusion Reactions: No Reported Reaction Past Psychological History: Anxiety, Bipolar, Depression Smoking Status: Current every day smoker Past Alcohol Use History: Daily, Heavy Past Drug Use History: Marijuana - Past Family History Father Family Medical History: Cancer Mother Family Medical History: Hyperlipidemia Brother(s) Additional Family Medical History / Comment(s): Bipolar, schizoprenia. Medications and Allergies Home Medications Medication Instructions Recorded Confirmed Type Albuterol Sulfate [Proair Hfa] 2 puff INHALATION RT-Q4H PRN 08/16/21 02/08/24 History busPIRone HCL 5 mg PO BID 08/16/21 02/08/24 History traZODone HCL 50 mg PO HS PRN 08/16/21 02/08/24 History Acetaminophen Tab [Tylenol] 650 mg PO Q6HR PRN tab 12/01/21 02/08/24 Rx Magnesium Oxide [Mag-Ox] 500 mg PO DAILY 11/23/22 02/08/24 History Fluticasone/Umeclidin/Vilanter 1 puff INHALATION RT-DAILY 02/01/24 02/08/24 History [Trelegy Ellipta 100-62.5-25] Ibuprofen 800 mg PO TID PRN 02/01/24 02/08/24 History Ammonium Lactate Lotion 1 applic TOPICAL BID PRN 02/08/24 02/08/24 History [Lac-Hydrin 12% Lotion] Celecoxib [CeleBREX] 100 mg PO BID PRN 02/08/24 02/08/24 History Sertraline [Zoloft] 25 mg PO DAILY 02/08/24 02/08/24 History cefUROXime axetiL [Ceftin] 500 mg PO BID 02/08/24 02/08/24 History Allergies Allergy/AdvReac Type Severity Reaction Status Date / Time No Known Allergies Allergy Verified 02/08/24 21:15 Physical Exam Vitals: Vital Signs Temp Pulse Pulse Resp BP BP Pulse Ox 02/09/24 00:00 98.5 F 79 16 122/75 96 02/08/24 23:12 74 18 110/72 99 02/08/24 20:13 73 19 118/82 02/08/24 18:16 97.9 F 71 18 137/86 99 Intake and Output 02/08/24 02/08/24 02/09/24 14:59 22:59 06:59 Intake Total 540 Balance 540 Intake: Oral 540 Other: Weight 71.668 kg 71.668 kg Results CBC & Chem 7: 02/08/24 18:38 02/08/24 20:00 Labs: Abnormal Lab Results - Last 24 Hours (Table) 02/08/24 02/08/24 Range/Units 18:38 20:00 RBC 3.41 L (4.30-5.90) m/uL Hgb 10.5 L (13.0-17.5) gm/dL Hct 32.1 L (39.0-53.0) % RDW 20.8 H (11.5-15.5) % Sodium 118 L* (137-145) mmol/L Chloride 84 L (98-107) mmol/L Carbon Dioxide 21 L (22-30) mmol/L AST 270 H (17-59) U/L ALT 95 H (4-49) U/L Alkaline Phosphatase 578 H (38-126) U/L Total Protein 8.6 H (6.3-8.2) g/dL
[2024-02-09 05:51] LABS: Anisocytosis Moderate; Basophils % (A) 0 %; Eosinophils # (A) 0.1 k/uL (0-0.7); Eosinophils % (A) 1 %; HCT 26.3 % (39.0-53.0); Lymphocytes # (A) 1.4 k/uL (1.0-4.8); Lymphocytes % (A) 20 %; Macrocytosis Slight; Monocytes # (A) 0.4 k/uL (0-1.0); Monocytes % (A) 6 %; Neutrophils # (A) 4.9 k/uL (1.3-7.7); Neutrophils % (A) 71 %; Platelet Count 135 k/uL (150-450); RDW 20.9 % (11.5-15.5); WBC 6.9 k/uL (3.8-10.6)
[2024-02-09 06:01] LABS: HGB 8.9 gm/dL (13.0-17.5)
[2024-02-09 06:10] LABS: Lipase 258 U/L (23-300); Sodium 125 mmol/L (137-145)
[2024-02-09] MEDS: DEXTROSE 5% IN WATER 1,000 ML IV SCH (06:26)
[2024-02-09] MEDS: ENOXAPARIN 40 MG/0.4 ML SYRINGE SQ SCH (08:57)
[2024-02-09] MEDS ORDERED: ALBUTEROL NEBULIZED 2.5 MG/3 ML INHALATION PRN (11:18)
[2024-02-09] MEDS ORDERED: LORazepam 1 MG TAB PO PRN ×2 (11:22)
--- NOTE | 2024-02-09 12:01 | P.NPCON ---
History of Present Illness - Reason for Consult Consult date: 02/09/24 hyponatremia - History of Present Illness Patient is a 58-year-old male with a PMH of alcohol abuse with alcohol withdrawal seizures, COPD, and peripheral neuropathy who presents to the emergency room sent in by his PCP for hyponatremia. Patient reports that over the past few days, he has been experiencing epigastric abdominal discomfort and occasional nausea and vomiting. As a result, he reports significantly diminish ed oral intake of solid food. He reports longstanding history of alcohol abuse, currently drinking half a pint of vodka daily. Also reports feeling weak throughout. Vital signs are stable. General: No acute distress. HEENT: Head exam is unremarkable. LUNGS: No audible rhonchi or wheezes. HEART: Rate and Rhythm are regular. ABDOMEN: Soft, nontender. EXTREMITITES: No edema. Review of Systems Constitutional: Reports as per HPI Past Medical History Past Medical History: COPD, GERD/Reflux, Pneumonia, Seizure Disorder, Syncope Additional Past Medical History / Comment(s): Neuropathy feet and arms in base of neck. Severe ETOH abuse. Hx alcohol withdrawal seizures/DTs, 1 yr ago, aspiration pneumonia, encephalopathy d/t alcohol, thrombocytopenia, chronic SOB. 3 years since only seizure. looking at disc issues will be sent to specialist. healing wound to rt great toe where it was amputated,dressed.completed abx(cefazolin) via torres to rt chest, visiting nurse once a week now. pt is a fair historian History of Any Multi-Drug Resistant Organisms: None Reported Past Surgical History: Ear Surgery, Tonsillectomy Additional Past Surgical History / Comment(s): Bilateral mastoidectomies, sinus surgery and vocal cord scraping, cataract surgery, blocks for migraines. i & d ghazala elbows , torres, amputation of rt grt toe., torres removed 02/04/24 Past Anesthesia/Blood Transfusion Reactions: No Reported Reaction Past Psychological History: Anxiety, Bipolar, Depression Smoking Status: Current every day smoker Past Alcohol Use History: Daily, Heavy Past Drug Use History: Marijuana - Past Family History Father Family Medical History: Cancer Mother Family Medical History: Hyperlipidemia Brother(s) Additional Family Medical History / Comment(s): Bipolar, schizoprenia. Medications and Allergies Home Medications Medication Instructions Recorded Confirmed Type Albuterol Sulfate [Proair Hfa] 2 puff INHALATION RT-Q4H PRN 08/16/21 02/08/24 History busPIRone HCL 5 mg PO BID 08/16/21 02/08/24 History traZODone HCL 50 mg PO HS PRN 08/16/21 02/08/24 History Acetaminophen Tab [Tylenol] 650 mg PO Q6HR PRN tab 12/01/21 02/08/24 Rx Magnesium Oxide [Mag-Ox] 500 mg PO DAILY 11/23/22 02/08/24 History Fluticasone/Umeclidin/Vilanter 1 puff INHALATION RT-DAILY 02/01/24 02/08/24 History [Trelegy Ellipta 100-62.5-25] Ibuprofen 800 mg PO TID PRN 02/01/24 02/08/24 History Ammonium Lactate Lotion 1 applic TOPICAL BID PRN 02/08/24 02/08/24 History [Lac-Hydrin 12% Lotion] Celecoxib [CeleBREX] 100 mg PO BID PRN 02/08/24 02/08/24 History Sertraline [Zoloft] 25 mg PO DAILY 02/08/24 02/08/24 History cefUROXime axetiL [Ceftin] 500 mg PO BID 02/08/24 02/08/24 History Allergies Allergy/AdvReac Type Severity Reaction Status Date / Time No Known Allergies Allergy Verified 02/08/24 21:15 Physical Exam Vitals: Vital Signs Temp Pulse Pulse Resp BP BP Pulse Ox 02/09/24 04:00 63 16 106/66 96 02/09/24 00:00 98.5 F 79 16 122/75 96 02/08/24 23:12 74 18 110/72 99 02/08/24 20:13 73 19 118/82 02/08/24 18:16 97.9 F 71 18 137/86 99 Intake and Output 02/08/24 02/09/24 02/09/24 22:59 06:59 14:59 Intake Total 540 358 Balance 540 358 Intake: Oral 540 358 Other: Voiding Method Toilet # Voids 1 Weight 71.668 kg 71.668 kg Results - Lab Results Most recent lab results Calcium 8.8 mg/dL (8.4-10.2) 02/08/24 20:00 02/09/24 04:58 02/09/24 07:43 Assessment and Plan Plan: Assessment: 1. Chronic Euvolemic hyponatremia 2/2 beer potomania/low solute intake. Presented sodium 118, over corrected 127 this morning. Urine sodium <20 urine osmolality not available. 2. Alcohol abuse. 3. Anemia. Plan: Started on 0.9% saline, over correct sodium thsi morning, switch to D5W at 100cc/hr Will give DDAVP IV 2mcg x1 to slow urine output. Goal Sodium 124-126 by 8 pm, then can discontinue IVF Continue to trend sodium level every 3 hours today.
[2024-02-09] MEDS: DESMOPRESSIN ACETATE 4 MCG/ML VIAL (MDV) IV STA (12:33)
[2024-02-09] MEDS: THIAMINE 100 MG/ML 2 ML VIAL IM STA (12:33)
--- NOTE | 2024-02-09 12:47 | P.PN ---
Subjective Progress Note Date: 02/09/24 Hospital Course: 58-year-old male with history of alcohol dependence with alcohol withdrawal seizures, COPD, peripheral neuropathy presenting after being sent by PCP for hyponatremia. Has also been complaining of epigastric abdominal discomfort and nausea vomiting. Decreased oral intake. Currently drinking half a pint of vodka daily. Laboratory evaluation in the emergency room was remarkable for sod ium 118, chloride 84, CO2 21, BUN 9, creatinine 1.01, AST 270, ALT 95, alk phos 578, unremarkable UA, and serum alcohol level 48 with hemoglobin 10.5. Patient admitted for severe hyponatremia. Nephrology consulted. Subjective: Patient seen and examined at bedside. No acute events overnight. Pertinent positives and negatives as discussed above, a complete review of systems was performed and all other systems are negative. Vitals Signs Reviewed. General: Nontoxic, no distress, appears at stated age Derm: Warm, dry Head: Atraumatic, normocephalic, symmetric Eyes: EOMI, no lid lag, anicteric sclera Mouth: No lip lesion, mucus membranes moist Cardiovascular: S1S2 reg, no murmur Lungs: CTA bilateral, no rhonchi, no rales, no accessory muscle use Abdominal: Soft, nontender to palpation, no guarding, no appreciable organomegaly Ext: No gross muscle atrophy, no edema, no contractures, status post right great toe amputation with 2 cm wound with clean and dry dressing well-healing without surrounding erythema or induration Neuro: CN II-XI grossly intact, no focal neuro deficits Psych: Alert, oriented, appropriate affect Data Reviewed Today: Pertinent Labs: Hemoglobin 8.9, around baseline, platelet 135, sodium 127, lipase 258 Imaging: No new imaging Assessment and Plan: Patient is severely ill, needs close monitoring, prognosis guarded. Active: Severe euvolemic hyponatremia, asymptomatic Nephrology following, patient currently on D5 water at 100 cc an hour, had a sudden increase in sodium since last night, also given 2 mcg of desmopressin by nephrology Continue to monitor serum sodium every 4 hours Seizure precautions Urine osmolality, urine sodium pending Patient is also on BuSpar, sertraline, trazodone, hold Alcohol dependence Acute alcohol intoxication Oral thiamine 100 mg daily, oral folic acid 1 mg daily Oral Ativan as needed per CIWA score, monitor for sedation Recent right great toe amputation with 2 cm wound, present on admission - continue ceftin Chronic: COPD Depression Chronic normocytic anemia, Hemoglobin at baseline DVT ppx: Lovenox Code status: Full code Anticipated discharge place: Pending clinical course Anticipated discharge time: Pending clinical course Objective - Vital Signs Vital signs: Vital Signs Temp 98.2 F 02/09/24 08:00 Pulse 84 02/09/24 08:00 Resp 18 02/09/24 08:00 BP 108/67 02/09/24 08:00 Pulse Ox 95 02/09/24 08:00 FiO2 Intake & Output 02/08/24 02/09/24 02/09/24 18:59 06:59 18:59 Intake Total 540 358 Balance 540 358 Weight 71.668 kg 71.668 kg Intake: Oral 540 358 Other: Voiding Method Toilet # Voids 1 - Labs CBC & Chem 7: 02/09/24 04:58 02/09/24 07:43 Labs: Abnormal Lab Results - Last 24 Hours (Table) 02/08/24 02/08/24 02/09/24 Range/Units 18:38 20:00 04:58 RBC 3.41 L 2.80 L (4.30-5.90) m/uL Hgb 10.5 L 8.9 L D (13.0-17.5) gm/dL Hct 32.1 L 26.3 L (39.0-53.0) % RDW 20.8 H 20.9 H (11.5-15.5) % Plt Count 135 L (150-450) k/uL Sodium 118 L* (137-145) mmol/L Chloride 84 L (98-107) mmol/L Carbon Dioxide 21 L (22-30) mmol/L Osmolality 266 L (275-295) mOsm/kg AST 270 H (17-59) U/L ALT 95 H (4-49) U/L Alkaline Phosphatase 578 H (38-126) U/L Total Protein 8.6 H (6.3-8.2) g/dL 02/09/24 02/09/24 Range/Units 04:58 07:43 RBC (4.30-5.90) m/uL Hgb (13.0-17.5) gm/dL Hct (39.0-53.0) % RDW (11.5-15.5) % Plt Count (150-450) k/uL Sodium 125 L 127 L (137-145) mmol/L Chloride (98-107) mmol/L Carbon Dioxide (22-30) mmol/L Osmolality (275-295) mOsm/kg AST (17-59) U/L ALT (4-49) U/L Alkaline Phosphatase (38-126) U/L Total Protein (6.3-8.2) g/dL
[2024-02-09 13:06] LABS: Sodium 123 mmol/L (137-145)
[2024-02-09] MEDS: SODIUM CHLORIDE 0.9% 1,000 ML IV SCH (20:14)
[2024-02-09] MEDS: CEFDINIR 300 MG CAP PO SCH (20:40)
[2024-02-10] MEDS: SODIUM CHLORIDE 0.9% 500 ML 500 ML IV ONE (00:49)
[2024-02-10 08:39] LABS: Anisocytosis Moderate; HCT 25.1 % (39.0-53.0); HGB 8.3 gm/dL (13.0-17.5); MCH 31.8 pg (25.0-35.0); MCHC 33.1 g/dL (31.0-37.0); MCV 96.3 fL (80.0-100.0); Macrocytosis Slight; Mean Platelet Volume 10.2; Platelet Count 136 k/uL (150-450); RBC 2.61 m/uL (4.30-5.90); RDW 20.8 % (11.5-15.5); WBC 6.6 k/uL (3.8-10.6)
[2024-02-10] MEDS: SYMBICORT 80-4.5 MCG INHALER INHALATION SCH (08:40)
[2024-02-10] MEDS: IPRATROPIUM 0.5 MG/2.5 ML NEBU INHALATION SCH (08:40)
[2024-02-10 08:55] LABS: African American GFR (CKD) >90 (>60 ml/min/1.73 sqM); Anion Gap 11 mmol/L; Blood Urea Nitrogen 7 mg/dL (9-20); Calcium 7.6 mg/dL (8.4-10.2); Carbon Dioxide 20 mmol/L (22-30); Chloride 89 mmol/L (98-107); Glucose 85 mg/dL (74-99); Non-African American GFR(CKD) >90 (>60 ml/min/1.73 sqM); Potassium 3.7 mmol/L (3.5-5.1); Sodium 120 mmol/L (137-145)
[2024-02-10] MEDS: THIAMINE 100 MG TAB PO SCH (08:59)
[2024-02-10] MEDS: FOLIC ACID 1 MG TAB PO SCH (08:59)
[2024-02-10 09:23] LABS: Anisocytosis (M) Present; Lymphocytes # (M) 2.31 k/uL (1.0-4.8); Monocytes # (M) 0.26 k/uL (0-1.0); Neutrophils # (M) 4.03 k/uL (1.3-7.7); Neutrophils % (M) 61 %; Nucleated Red Blood Cells 0 /100 WBC (0-0); Target Cells Present; Total Cells Counted 100
--- NOTE | 2024-02-10 11:21 | P.PN ---
Subjective Progress Note Date: 02/10/24 Patient seen in follow-up for hyponatremia. No new complaints. Sodium dropped yesterday with DDAVP and D5W. Now back on normal saline. Vital signs are stable. General: No acute distress. HEENT: Head exam is unremarkable. LUNGS: No audible rhonchi or wheezes. HEART: Rate and Rhythm are regular. ABDOMEN: Soft, nontender. EXTREMITITES: No edema. Objective - Vital Signs Vital signs: Vital Signs Temp 97.7 F 02/10/24 08:00 Pulse 64 02/10/24 08:50 Resp 18 02/10/24 08:00 BP 117/71 02/10/24 08:00 Pulse Ox 97 02/10/24 08:00 FiO2 Intake & Output 02/09/24 02/10/24 02/10/24 18:59 06:59 18:59 Intake Total 956 540 358 Output Total 325 250 500 Balance 631 290 -142 Intake: Oral 956 540 358 Output: Urine 325 250 500 Other: Voiding Method Toilet # Voids 1 # Bowel Movements 1 - Labs CBC & Chem 7: 02/10/24 06:55 02/10/24 06:55 Labs: Abnormal Lab Results - Last 24 Hours (Table) 02/08/24 02/08/24 02/09/24 Range/Units 18:38 18:38 12:00 RBC (4.30-5.90) m/uL Hgb (13.0-17.5) gm/dL Hct (39.0-53.0) % RDW (11.5-15.5) % Plt Count (150-450) k/uL Sodium 123 L (137-145) mmol/L Chloride (98-107) mmol/L Carbon Dioxide (22-30) mmol/L BUN (9-20) mg/dL Creatinine (0.66-1.25) mg/dL Calcium (8.4-10.2) mg/dL Urine Osmolality 108 L (400-1100) mOsm/kg Ur Random Sodium <20 L (40-220) mmol/L 02/09/24 02/09/24 02/09/24 Range/Units 15:33 19:11 23:54 RBC (4.30-5.90) m/uL Hgb (13.0-17.5) gm/dL Hct (39.0-53.0) % RDW (11.5-15.5) % Plt Count (150-450) k/uL Sodium 122 L 121 L 119 L* (137-145) mmol/L Chloride (98-107) mmol/L Carbon Dioxide (22-30) mmol/L BUN (9-20) mg/dL Creatinine (0.66-1.25) mg/dL Calcium (8.4-10.2) mg/dL Urine Osmolality (400-1100) mOsm/kg Ur Random Sodium (40-220) mmol/L 02/10/24 02/10/24 Range/Units 06:55 06:55 RBC 2.61 L (4.30-5.90) m/uL Hgb 8.3 L (13.0-17.5) gm/dL Hct 25.1 L (39.0-53.0) % RDW 20.8 H (11.5-15.5) % Plt Count 136 L (150-450) k/uL Sodium 120 L (137-145) mmol/L Chloride 89 L (98-107) mmol/L Carbon Dioxide 20 L (22-30) mmol/L BUN 7 L (9-20) mg/dL Creatinine 0.54 L (0.66-1.25) mg/dL Calcium 7.6 L (8.4-10.2) mg/dL Urine Osmolality (400-1100) mOsm/kg Ur Random Sodium (40-220) mmol/L Assessment and Plan Plan: Assessment: 1. Chronic Euvolemic hyponatremia 2/2 beer potomania/low solute intake. Presented sodium 118, over corrected 127, brought back down to 119. Urine sodium <20 urine osmolality low 108. 2. Alcohol abuse. 3. Anemia. Plan: Sodium dropped to 119 after D5W and DDAVP. Increase on Normal saline 100cc/hr, given 500cc bolus overnight. Will give DDAVP IV 2mcg x1 to slow urine output. Goal Sodium 128-130 by 8 pm Continue to trend sodium level every 4 hours today.
--- NOTE | 2024-02-10 11:36 | P.PN ---
Subjective Progress Note Date: 02/10/24 Hospital Course: 58-year-old male with history of alcohol dependence with alcohol withdrawal seizures, COPD, peripheral neuropathy presenting after being sent by PCP for hyponatremia. Has also been complaining of epigastric abdominal discomfort and nausea vomiting. Decreased oral intake. Currently drinking half a pint of vodka daily. Laboratory evaluation in the emergency room was remarkable for sod ium 118, chloride 84, CO2 21, BUN 9, creatinine 1.01, AST 270, ALT 95, alk phos 578, unremarkable UA, and serum alcohol level 48 with hemoglobin 10.5. Patient admitted for severe hyponatremia. Nephrology consulted. Subjective: Patient seen and examined at bedside. No acute events overnight. Pertinent positives and negatives as discussed above, a complete review of systems was performed and all other systems are negative. Vitals Signs Reviewed. General: Nontoxic, no distress, appears at stated age Derm: Warm, dry Head: Atraumatic, normocephalic, symmetric Eyes: EOMI, no lid lag, anicteric sclera Mouth: No lip lesion, mucus membranes moist Cardiovascular: S1S2 reg, no murmur Lungs: CTA bilateral, no rhonchi, no rales, no accessory muscle use Abdominal: Soft, nontender to palpation, no guarding, no appreciable organomegaly Ext: No gross muscle atrophy, no edema, no contractures, status post right great toe amputation with 2 cm wound with clean and dry dressing well-healing without surrounding erythema or induration Neuro: CN II-XI grossly intact, no focal neuro deficits Psych: Alert, oriented, appropriate affect Data Reviewed Today: Pertinent Labs: Hemoglobin 8.3, sodium 128, creatinine 0.54, TSH 1.28 Imaging: No new imaging Assessment and Plan: Patient is severely ill, needs close monitoring, prognosis guarded. Active: Severe euvolemic hyponatremia, asymptomatic Nephrology note reviewed, increase normal saline to 100 cc an hour, did receive D5 water and desmopressin yesterday due to rapidly increasing sodium Continue to monitor serum sodium every 4 hours Seizure precautions Patient is also on BuSpar, sertraline, trazodone, hold Alcohol dependence Acute alcohol intoxication Oral thiamine 100 mg daily, oral folic acid 1 mg daily Oral Ativan as needed per CIWA score, monitor for sedation Recent right great toe amputation with 2 cm wound, present on admission - continue cefdinir 300 twice daily Chronic: COPD Depression Chronic normocytic anemia, Hemoglobin at baseline DVT ppx: Lovenox Code status: Full code Anticipated discharge place: Pending clinical course Anticipated discharge time: Pending clinical course Objective - Vital Signs Vital signs: Vital Signs Temp 97.7 F 02/10/24 08:00 Pulse 64 02/10/24 08:50 Resp 18 02/10/24 08:00 BP 117/71 02/10/24 08:00 Pulse Ox 97 02/10/24 08:00 FiO2 Intake & Output 02/09/24 02/10/24 02/10/24 18:59 06:59 18:59 Intake Total 956 540 358 Output Total 325 250 500 Balance 631 290 -142 Intake: Oral 956 540 358 Output: Urine 325 250 500 Other: Voiding Method Toilet # Voids 1 # Bowel Movements 1 - Labs CBC & Chem 7: 02/10/24 06:55 02/10/24 06:55 Labs: Abnormal Lab Results - Last 24 Hours (Table) 02/08/24 02/08/24 02/09/24 Range/Units 18:38 18:38 12:00 RBC (4.30-5.90) m/uL Hgb (13.0-17.5) gm/dL Hct (39.0-53.0) % RDW (11.5-15.5) % Plt Count (150-450) k/uL Sodium 123 L (137-145) mmol/L Chloride (98-107) mmol/L Carbon Dioxide (22-30) mmol/L BUN (9-20) mg/dL Creatinine (0.66-1.25) mg/dL Calcium (8.4-10.2) mg/dL Urine Osmolality 108 L (400-1100) mOsm/kg Ur Random Sodium <20 L (40-220) mmol/L 02/09/24 02/09/24 02/09/24 Range/Units 15:33 19:11 23:54 RBC (4.30-5.90) m/uL Hgb (13.0-17.5) gm/dL Hct (39.0-53.0) % RDW (11.5-15.5) % Plt Count (150-450) k/uL Sodium 122 L 121 L 119 L* (137-145) mmol/L Chloride (98-107) mmol/L Carbon Dioxide (22-30) mmol/L BUN (9-20) mg/dL Creatinine (0.66-1.25) mg/dL Calcium (8.4-10.2) mg/dL Urine Osmolality (400-1100) mOsm/kg Ur Random Sodium (40-220) mmol/L 02/10/24 02/10/24 Range/Units 06:55 06:55 RBC 2.61 L (4.30-5.90) m/uL Hgb 8.3 L (13.0-17.5) gm/dL Hct 25.1 L (39.0-53.0) % RDW 20.8 H (11.5-15.5) % Plt Count 136 L (150-450) k/uL Sodium 120 L (137-145) mmol/L Chloride 89 L (98-107) mmol/L Carbon Dioxide 20 L (22-30) mmol/L BUN 7 L (9-20) mg/dL Creatinine 0.54 L (0.66-1.25) mg/dL Calcium 7.6 L (8.4-10.2) mg/dL Urine Osmolality (400-1100) mOsm/kg Ur Random Sodium (40-220) mmol/L
[2024-02-11 02:49] LABS: Anisocytosis Moderate; Basophils % (A) 0 %; Eosinophils # (A) 0.1 k/uL (0-0.7); Eosinophils % (A) 2 %; HCT 26.4 % (39.0-53.0); HGB 8.4 gm/dL (13.0-17.5); Lymphocytes # (A) 1.4 k/uL (1.0-4.8); Lymphocytes % (A) 24 %; MCH 31.1 pg (25.0-35.0); MCV 97.3 fL (80.0-100.0); Macrocytosis Slight; Mean Platelet Volume 8.5; Monocytes # (A) 0.5 k/uL (0-1.0); Monocytes % (A) 8 %; Neutrophils % (A) 65 %; Platelet Count 155 k/uL (150-450); RBC 2.71 m/uL (4.30-5.90); RDW 21.3 % (11.5-15.5); WBC 6.1 k/uL (3.8-10.6)
[2024-02-11 03:01] LABS: African American GFR (CKD) >90 (>60 ml/min/1.73 sqM); Anion Gap 8 mmol/L; Blood Urea Nitrogen 7 mg/dL (9-20); Calcium 7.9 mg/dL (8.4-10.2); Carbon Dioxide 24 mmol/L (22-30); Chloride 94 mmol/L (98-107); Glucose 94 mg/dL (74-99); Non-African American GFR(CKD) >90 (>60 ml/min/1.73 sqM); Potassium 3.4 mmol/L (3.5-5.1); Sodium 126 mmol/L (137-145)
[2024-02-11] MEDS: LORazepam 1 MG TAB PO PRN (08:57)
--- NOTE | 2024-02-11 10:57 | P.PN ---
Subjective Progress Note Date: 02/11/24 Hospital Course: 58-year-old male with history of alcohol dependence with alcohol withdrawal seizures, COPD, peripheral neuropathy presenting after being sent by PCP for hyponatremia. Has also been complaining of epigastric abdominal discomfort and nausea vomiting. Decreased oral intake. Currently drinking half a pint of vodka daily. Laboratory evaluation in the emergency room was remarkable for sod ium 118, chloride 84, CO2 21, BUN 9, creatinine 1.01, AST 270, ALT 95, alk phos 578, unremarkable UA, and serum alcohol level 48 with hemoglobin 10.5. Patient admitted for severe hyponatremia. Nephrology consulted. Sodium improving. Subjective: Patient seen and examined at bedside. No acute events overnight. Pertinent positives and negatives as discussed above, a complete review of systems was performed and all other systems are negative. Vitals Signs Reviewed. General: Nontoxic, no distress, appears at stated age Derm: Warm, dry Head: Atraumatic, normocephalic, symmetric Eyes: EOMI, no lid lag, anicteric sclera Mouth: No lip lesion, mucus membranes moist Cardiovascular: S1S2 reg, no murmur Lungs: CTA bilateral, no rhonchi, no rales, no accessory muscle use Abdominal: Soft, nontender to palpation, no guarding, no appreciable organomegaly Ext: No gross muscle atrophy, no edema, no contractures, status post right great toe amputation with 2 cm wound with clean and dry dressing well-healing without surrounding erythema or induration Neuro: CN II-XI grossly intact, no focal neuro deficits Psych: Alert, oriented, appropriate affect Data Reviewed Today: Pertinent Labs: Hemoglobin 8.4, sodium 129, potassium 3.4, creatinine 0.52 Imaging: No new imaging Assessment and Plan: Active: Severe euvolemic hyponatremia, asymptomatic Nephrology following, continue normal saline at 100 cc an hour Did receive D5 water and desmopressin yesterday due to rapidly increasing sodium Continue to monitor serum sodium Seizure precautions Patient only on BuSpar at home, which is restarted, claims that he has not been taking sertraline at home Alcohol dependence Acute alcohol intoxication Alcohol withdrawal Oral thiamine 100 mg daily, oral folic acid 1 mg daily Oral Ativan as needed per CIWA score, monitor for sedation, received 1 mg of 4 Recent right great toe amputation with 2 cm wound, present on admission - continue cefdinir 300 twice daily for another 2 days Patient had received 2 doses of oral antibiotics prior to coming to the hospital. History of gastritis Recent EGD Protonix 40 daily Chronic: COPD Depression Chronic normocytic anemia, Hemoglobin at baseline DVT ppx: Lovenox Code status: Full code Anticipated discharge place: Pending clinical course Anticipated discharge time: Pending clinical course Objective - Vital Signs Vital signs: Vital Signs Temp 98.2 F 02/11/24 08:00 Pulse 70 02/11/24 08:40 Resp 16 02/11/24 08:00 BP 113/74 02/11/24 08:00 Pulse Ox 97 02/11/24 08:00 FiO2 Intake & Output 02/10/24 02/11/24 02/11/24 18:59 06:59 18:59 Intake Total 1256 458 Output Total 2049 1800 650 Balance -794 -1800 -192 Intake: Oral 1256 458 Output: Urine 2049 1800 650 Other: Voiding Method Toilet # Voids 1 # Bowel Movements 1 - Labs CBC & Chem 7: 02/11/24 02:20 02/11/24 07:38 Labs: Abnormal Lab Results - Last 24 Hours (Table) 02/10/24 02/10/24 02/10/24 Range/Units 11:46 16:25 19:39 RBC (4.30-5.90) m/uL Hgb (13.0-17.5) gm/dL Hct (39.0-53.0) % RDW (11.5-15.5) % Sodium 120 L 120 L 121 L (137-145) mmol/L Potassium (3.5-5.1) mmol/L Chloride (98-107) mmol/L BUN (9-20) mg/dL Creatinine (0.66-1.25) mg/dL Calcium (8.4-10.2) mg/dL 02/11/24 02/11/24 02/11/24 Range/Units 02:20 02:20 07:38 RBC 2.71 L (4.30-5.90) m/uL Hgb 8.4 L (13.0-17.5) gm/dL Hct 26.4 L (39.0-53.0) % RDW 21.3 H (11.5-15.5) % Sodium 126 L 129 L (137-145) mmol/L Potassium 3.4 L (3.5-5.1) mmol/L Chloride 94 L (98-107) mmol/L BUN 7 L (9-20) mg/dL Creatinine 0.52 L (0.66-1.25) mg/dL Calcium 7.9 L (8.4-10.2) mg/dL
--- NOTE | 2024-02-11 11:15 | P.PN ---
Subjective Patient is seen for follow-up for hyponatremia. Currently maintained on normal saline. Sodium improved to 129. No significant complaints. Objective - Vital Signs Vital signs: Vital Signs Temp 98.2 F 02/11/24 08:00 Pulse 70 02/11/24 08:40 Resp 16 02/11/24 08:00 BP 113/74 02/11/24 08:00 Pulse Ox 97 02/11/24 08:00 FiO2 Intake & Output 02/10/24 02/11/24 02/11/24 18:59 06:59 18:59 Intake Total 1256 458 Output Total 2049 1800 650 Balance -794 -1800 -192 Intake: Oral 1256 458 Output: Urine 2049 1799 650 Other: Voiding Method Toilet # Voids 1 # Bowel Movements 1 - Exam Patient is awake, comfortable, no acute distress Examination of the heart S1 and S2 Examination of the lungs bilateral breath sounds are heard Abdomen is soft nontender Examination of lower extremity shows no significant edema [employer] exam grossly intact - Labs CBC & Chem 7: 02/11/24 02:20 02/11/24 07:38 Labs: Abnormal Lab Results - Last 24 Hours (Table) 02/10/24 02/10/24 02/10/24 Range/Units 11:46 16:25 19:39 RBC (4.30-5.90) m/uL Hgb (13.0-17.5) gm/dL Hct (39.0-53.0) % RDW (11.5-15.5) % Sodium 120 L 120 L 121 L (137-145) mmol/L Potassium (3.5-5.1) mmol/L Chloride (98-107) mmol/L BUN (9-20) mg/dL Creatinine (0.66-1.25) mg/dL Calcium (8.4-10.2) mg/dL 02/11/24 02/11/24 02/11/24 Range/Units 02:20 02:20 07:38 RBC 2.71 L (4.30-5.90) m/uL Hgb 8.4 L (13.0-17.5) gm/dL Hct 26.4 L (39.0-53.0) % RDW 21.3 H (11.5-15.5) % Sodium 126 L 129 L (137-145) mmol/L Potassium 3.4 L (3.5-5.1) mmol/L Chloride 94 L (98-107) mmol/L BUN 7 L (9-20) mg/dL Creatinine 0.52 L (0.66-1.25) mg/dL Calcium 7.9 L (8.4-10.2) mg/dL Assessment and Plan Assessment: 1. Chronic Euvolemic hyponatremia 2/2 beer potomania/low solute intake. Present ed sodium 118, over corrected 127, brought back down to 119. Urine sodium <20 urine osmolality low 108. 's currently maintained on normal saline and sodium improved to 129. 2. Alcohol abuse. 3. Anemia, rule out iron deficiency. Plan: Continue normal saline Encourage increased oral intake Check iron profile
[2024-02-11] MEDS: PANTOPRAZOLE 40 MG TABLET PO SCH (11:39)
[2024-02-11] MEDS: busPIRone HCl 5 MG TAB PO SCH (20:41)
[2024-02-12 09:46] LABS: Anisocytosis Moderate; Basophils % (A) 0 %; Eosinophils # (A) 0.1 k/uL (0-0.7); Eosinophils % (A) 1 %; HCT 29.7 % (39.0-53.0); HGB 9.5 gm/dL (13.0-17.5); Lymphocytes # (A) 1.1 k/uL (1.0-4.8); Lymphocytes % (A) 15 %; MCV 100.1 fL (80.0-100.0); Macrocytosis Moderate; Mean Platelet Volume 8.1; Monocytes # (A) 0.7 k/uL (0-1.0); Monocytes % (A) 9 %; Neutrophils # (A) 5.5 k/uL (1.3-7.7); Neutrophils % (A) 73 %; Platelet Count 224 k/uL (150-450); RBC 2.97 m/uL (4.30-5.90); RDW 21.5 % (11.5-15.5); WBC 7.6 k/uL (3.8-10.6)
[2024-02-12 10:12] LABS: African American GFR (CKD) >90 (>60 ml/min/1.73 sqM); Anion Gap 7 mmol/L; Blood Urea Nitrogen 9 mg/dL (9-20); Calcium 7.9 mg/dL (8.4-10.2); Carbon Dioxide 23 mmol/L (22-30); Chloride 100 mmol/L (98-107); Glucose 89 mg/dL (74-99); Non-African American GFR(CKD) >90 (>60 ml/min/1.73 sqM); Potassium 3.5 mmol/L (3.5-5.1); Sodium 130 mmol/L (137-145)
--- NOTE | 2024-02-12 11:45 | P.PN ---
Subjective Patient is seen for follow-up for hyponatremia. Currently maintained on normal saline. Sodium improved to 130 No significant complaints. Objective - Vital Signs Vital signs: Vital Signs Temp 98.3 F 02/12/24 11:30 Pulse 102 H 02/12/24 11:30 Resp 16 02/12/24 11:30 BP 112/74 02/12/24 11:30 Pulse Ox 98 02/12/24 11:30 FiO2 Intake & Output 02/11/24 02/12/24 02/12/24 18:59 06:59 18:59 Intake Total 576 540 340 Output Total 1125 400 Balance -549 140 340 Intake: Oral 576 540 340 Output: Urine 1125 400 Other: Voiding Method Toilet Toilet Toilet # Voids 1 2 - Exam Patient is awake, comfortable, no acute distress Examination of the heart S1 and S2 Examination of the lungs bilateral breath sounds are heard Abdomen is soft nontender Examination of lower extremity shows no significant edema [employer] exam grossly intact - Labs CBC & Chem 7: 02/12/24 08:42 02/12/24 08:42 Labs: Abnormal Lab Results - Last 24 Hours (Table) 02/11/24 02/12/24 02/12/24 Range/Units 11:56 08:42 08:42 RBC 2.97 L (4.30-5.90) m/uL Hgb 9.5 L (13.0-17.5) gm/dL Hct 29.7 L (39.0-53.0) % MCV 100.1 H (80.0-100.0) fL RDW 21.5 H (11.5-15.5) % Sodium 127 L 130 L (137-145) mmol/L Creatinine 0.52 L (0.66-1.25) mg/dL Calcium 7.9 L (8.4-10.2) mg/dL Assessment and Plan Assessment: 1. Chronic Euvolemic hyponatremia 2/2 beer potomania/low solute intake. Presented sodium 118, over corrected 127, brought back down to 119. Urine sodium <20 urine osmolality low 108. currently maintained on normal saline and sodium improved to 130. 2. Alcohol abuse. 3. Anemia, rule out iron deficiency. Plan: Okay to discharge patient from nephrology standpoint. Sodium chloride tabs 1 g daily for 2 days post discharge Repeat labs as outpatient in 2-3 days. Discussed discontinuation of alcohol
[2024-02-12] MEDS: MAGNESIUM SULFATE-D5W PMX 1 GM in DEXTROSE/WATER 1 100ML.BAG IVPB SCH (12:49)
[2024-02-12] MEDS: MAGNESIUM OXIDE 400 MG TAB PO SCH (12:50)
[2024-02-12] MEDS: POTASSIUM CHLORIDE ER 20 MEQ TAB.ER PO STA (12:50)
--- NOTE | 2024-02-12 14:19 | P.PN ---
Subjective Progress Note Date: 02/12/24 (delayed charting seen at 0930) Patient is a 58-year-old male with a history of alcohol dependency with alcohol withdrawal seizures, COPD, peripheral neuropathy, and osteomyelitis of the right second great toe who was sent in by his primary care provider for hyponatremia. Patient had been having decreased oral intake and was drinking a pint of vodka daily. Initial laboratory analysis in the emergency room was remarkable for sodium of 118. Patient was admitted for severe hyponatremia. Nephrology was consulted. Patient was started on normal saline and had a rapid correction of his sodium level requiring D5 water and desmopressin. His sodium levels stabilized. He continued to improve. Discharge was planned for 02/11 when the patient went into SVT with ambulation. Cardiology was consulted. Magnesium came back at 0.6. Patient seen and examined at bedside. Denies any chest pain, shortness of breath, lightheadedness, dizziness. He states his alcohol withdrawal symptoms are mild. He has a counselor at home and will work on cutting down alcohol intake. Vital signs reviewed General: Nontoxic, no distress, appears at stated age Cardiovascular: S1S2 reg, no murmur Lungs: CTA bilateral, no rhonchi, no rales, no accessory muscle use Abdominal: Soft, nontender to palpation, no guarding Ext: No gross muscle atrophy, no edema b/l lower extremities, no contractures Neuro: CN II-XI grossly intact, no focal neuro deficits Psych: Alert, oriented, appropriate affect Assessment/Plan: Chronic euvolemic hyponatremia likely secondary to poor solute intake -Will continue on normal saline at 100 cc/h -On discharge 1 g sodium chloride tablet for the next 2 days -Repeat basic metabolic profile in a.m. -Continue with BuSpar Hypomagnesemia -Magnesium sulfate 4 mg IV piggyback, magnesium oxide 400 mg twice daily Alcohol dependency -[facility] protocol. Patient has only received 1 mg of Ativan in the last 24 hours -Thiamine 100 mg daily, folic acid 1 mg daily -Start Librium 20 mg 3 times daily Osteomyelitis of the second right great toe -Patient just completed IV antibiotics at home and was transitioned to oral antibiotics -He will continue to follow with vascular surgery and infectious disease doctor as an outpatient -Continue with cefdinir 300 mg twice daily Supraventricular tachycardia -Stat magnesium checked and was 0.6. Aggressive magnesium replacement started -Consult cardiology -Check echocardiogram Chronic: COPD Depression Chronic normocytic anemia, Hemoglobin at baseline Plan had been for discharge today however patient was noted to have SVT when up and ambulating. Imaging: None new Labs: Labs reviewed from today include CBC and basic metabolic profile and magnesium which are remarkable for hemoglobin 9.5, sodium 130, and magnesium 0.6 DVT prophylaxis: Lovenox Anticipated discharge date: In a.m. Anticipated discharge place: Home This dictation was prepared using [employer] voice recognition software. Though every attempt is made to correct errors during dictation some may still exist. Objective - Vital Signs Vital signs: Vital Signs Temp 98.3 F 02/12/24 11:30 Pulse 102 H 02/12/24 11:30 Resp 16 02/12/24 11:30 BP 112/74 02/12/24 11:30 Pulse Ox 98 02/12/24 11:30 FiO2 Intake & Output 02/11/24 02/12/24 02/12/24 18:59 06:59 18:59 Intake Total 576 540 458 Output Total 1125 400 Balance -549 140 458 Intake: Oral 576 540 458 Output: Urine 1125 400 Other: Voiding Method Toilet Toilet Toilet # Voids 1 2 - Labs CBC & Chem 7: 02/12/24 08:42 02/12/24 08:42 Labs: Abnormal Lab Results - Last 24 Hours (Table) 02/12/24 02/12/24 02/12/24 Range/Units 08:42 08:42 08:42 RBC 2.97 L (4.30-5.90) m/uL Hgb 9.5 L (13.0-17.5) gm/dL Hct 29.7 L (39.0-53.0) % MCV 100.1 H (80.0-100.0) fL RDW 21.5 H (11.5-15.5) % Sodium 130 L (137-145) mmol/L Creatinine 0.52 L (0.66-1.25) mg/dL Calcium 7.9 L (8.4-10.2) mg/dL Magnesium 0.6 L* (1.6-2.3) mg/dL
[2024-02-12 23:32] VITALS: RESP 16
[2024-02-13 00:16] LABS: % Iron Saturation 9.29 (15.00-50.00)
[2024-02-13 07:09] LABS: Anisocytosis Moderate; HCT 24.8 % (39.0-53.0); MCH 31.8 pg (25.0-35.0); MCHC 32.3 g/dL (31.0-37.0); MCV 98.5 fL (80.0-100.0); Macrocytosis Moderate; Mean Platelet Volume 7.5; Platelet Count 249 k/uL (150-450); RBC 2.52 m/uL (4.30-5.90); RDW 21.7 % (11.5-15.5); WBC 6.3 k/uL (3.8-10.6)
[2024-02-13 07:20] LABS: African American GFR (CKD) >90 (>60 ml/min/1.73 sqM); Anion Gap 7 mmol/L; Blood Urea Nitrogen 10 mg/dL (9-20); Carbon Dioxide 23 mmol/L (22-30); Chloride 102 mmol/L (98-107); Glucose 89 mg/dL (74-99); Magnesium 1.3 mg/dL (1.6-2.3); Non-African American GFR(CKD) >90 (>60 ml/min/1.73 sqM); Potassium 4.2 mmol/L (3.5-5.1); Sodium 132 mmol/L (137-145)
[2024-02-13] MEDS: DILTIAZEM CD 120 MG CAP.ER.24H PO SCH (08:03)
--- NOTE | 2024-02-13 09:18 | P.CRDCN ---
History of Present Illness History of present illness: HISTORY OF PRESENT ILLNESS: This is a 58-year-old male with a past medical history significant for SVT, chronic hyponatremia, COPD, depression, anxiety, nicotine dependence, and alcohol abuse. Patient follows in the office with Dr. Wallace but has not been seen to the office since February 2023. We have been asked to see the patient in consultation for SVT. Patient examined at the bedside. Patient is admitted to the hospital secondary to hyponatremia with a sodium level of 118. Patient states he has not been eating well at home and has been feeling nauseated. He does report a history of alcohol abuse and has been drinking a pint of vodka daily. Patient denies any chest pain or pressure. He denies any shortness of breath. He denies having any palpitations or dizziness. The patient did have an episode of SVT yesterday after ambulating to the restroom that resolved on its own. The patient does have a history of SVT according to cardiology notes. He was previously on Cardizem CD although he states he is no longer taking this. DIAGNOSTICS: - EKG reveals sinus tachycardia with left bundle branch block. - Laboratory data: WBC 6.3. Hemoglobin 8.0. Platelet count 249. Sodium 132. Potassium 4.2. BUN 10. Creatinine 0.45. Magnesium 1.3. - Current home cardiac medications include none. - Most recent echocardiogram obtained in February 2022 reveals ejection fraction 55 to 60% with trace to mild TR and trace to mild MR - Patient underwent Lexiscan stress test in January 2023 which was negative for reversible ischemia. REVIEW OF SYSTEMS: At the time of my exam: CONSTITUTIONAL: Denies fever or chills. HEENT: Denies blurred vision, vision changes, or eye pain. Denies hemoptysis CARDIOVASCULAR: Denies chest pain. Denies orthopnea. Denies PND. Denies palpitations RESPIRATORY: Denies shortness of breath. GASTROINTESTINAL: Denies abdominal pain. Denies nausea or vomiting. HEMATOLOGIC: Denies bleeding disorders. GENITOURINARY: Denies any blood in urine. SKIN: Denies pruitis. Denies rash. PHYSICAL EXAM: VITAL SIGNS: Reviewed. GENERAL: Well-developed in no acute distress. HEENT: Head is normocephalic. Pupils are equal, round. Sclerae anicteric. Mucous membranes of the mouth are moist. Neck supple. No JVD or thyromegaly LUNGS: Respirations even and unlabored. Lungs essentially clear to auscultation bilaterally. HEART: Regular rate and rhythm. S1 and S2 heard. ABDOMEN: Soft. Nondistended. Nontender. EXTREMITIES: Normal range of motion. No clubbing or cyanosis. Peripheral pulses intact. No lower extremity edema NEUROLOGIC: Awake and alert. Oriented x 3. ASSESSMENT: Acute on chronic hyponatremia Paroxysmal SVT Hypomagnesemia COPD Depression Anxiety Nicotine dependence History of alcohol abuse PLAN: 2D echo has been ordered. Await results Replace magnesium Begin Cardizem CD 120 mg daily Smoking cessation encouraged Abstinence from alcohol recommended Patient may be discharged home this afternoon from a cardiac standpoint Patient to follow-up postdischarge with Dr. Wallace Nurse practitioner note has been reviewed by physician. Signing provider agrees with the documented findings, assessment, and plan of care documented by CREATIVE CONSULTANT as a scribe. Past Medical History Past Medical History: COPD, GERD/Reflux, Pneumonia, Seizure Disorder, Syncope Additional Past Medical History / Comment(s): Neuropathy feet and arms in base of neck. Severe ETOH abuse. Hx alcohol withdrawal seizures/DTs, 1 yr ago, aspiration pneumonia, encephalopathy d/t alcohol, thrombocytopenia, chronic SOB. 3 years since only seizure. looking at disc issues will be sent to specialist. healing wound to rt great toe where it was amputated,dressed.completed abx(cefazolin) via torres to rt chest, visiting nurse once a week now. pt is a fair historian History of Any Multi-Drug Resistant Organisms: None Reported Past Surgical History: Ear Surgery, Tonsillectomy Additional Past Surgical History / Comment(s): Bilateral mastoidectomies, sinus surgery and vocal cord scraping, cataract surgery, blocks for migraines. i & d ghazala elbows , torres, amputation of rt grt toe., torres removed 02/04/24 Past Anesthesia/Blood Transfusion Reactions: No Reported Reaction Past Psychological History: Anxiety, Bipolar, Depression Smoking Status: Current every day smoker Past Alcohol Use History: Daily, Heavy Past Drug Use History: Marijuana - Past Family History Father Family Medical History: Cancer Mother Family Medical History: Hyperlipidemia Brother(s) Additional Family Medical History / Comment(s): Bipolar, schizoprenia. Medications and Allergies Home Medications Medication Instructions Recorded Confirmed Type Albuterol Sulfate [Proair Hfa] 2 puff INHALATION RT-Q4H PRN 08/16/21 02/08/24 History busPIRone HCL 5 mg PO BID 08/16/21 02/08/24 History traZODone HCL 50 mg PO HS PRN 08/16/21 02/08/24 History Acetaminophen Tab [Tylenol] 650 mg PO Q6HR PRN tab 12/01/21 02/08/24 Rx Magnesium Oxide [Mag-Ox] 500 mg PO DAILY 11/23/22 02/08/24 History Fluticasone/Umeclidin/Vilanter 1 puff INHALATION RT-DAILY 02/01/24 02/08/24 History [Trelegy Ellipta 100-62.5-25] Ibuprofen 800 mg PO TID PRN 02/01/24 02/08/24 History Ammonium Lactate Lotion 1 applic TOPICAL BID PRN 02/08/24 02/08/24 History [Lac-Hydrin 12% Lotion] Celecoxib [CeleBREX] 100 mg PO BID PRN 02/08/24 02/08/24 History Sertraline [Zoloft] 25 mg PO DAILY 02/08/24 02/08/24 History cefUROXime axetiL [Ceftin] 500 mg PO BID 02/08/24 02/08/24 History Allergies Allergy/AdvReac Type Severity Reaction Status Date / Time No Known Allergies Allergy Verified 02/08/24 21:15 Physical Exam Vitals: Vital Signs Temp Pulse Pulse Resp BP BP Pulse Ox 02/13/24 08:43 88 02/13/24 08:23 92 02/13/24 08:00 98.4 F 89 16 101/66 98 02/13/24 03:48 98.7 F 81 16 111/72 94 L 02/12/24 23:17 97.7 F 93 16 107/68 95 02/12/24 21:31 88 02/12/24 21:19 80 02/12/24 19:43 90 18 02/12/24 19:42 98.2 F 90 18 101/68 96 02/12/24 17:00 98.1 F 109 H 18 98/66 96 02/12/24 16:40 100 02/12/24 16:29 104 H 02/12/24 11:30 98.3 F 102 H 16 112/74 98 02/12/24 09:54 96 02/12/24 09:42 97 Intake and Output 02/12/24 02/13/24 02/13/24 22:59 06:59 14:59 Intake Total 274 130 Output Total 575 1875 Balance -301 -1875 130 Intake: IV 10 10 Invasive Line 3 10 10 Oral 264 120 Output: Urine 575 1875 Other: Voiding Method Urinal Urinal Urinal # Bowel Movements 1 Results 02/13/24 06:29 02/13/24 06:29 CBC 02/12/24 02/13/24 Range/Units 08:42 06:29 WBC 7.6 6.3 (3.8-10.6) k/uL RBC 2.97 L 2.52 L (4.30-5.90) m/uL Hgb 9.5 L 8.0 L D (13.0-17.5) gm/dL Hct 29.7 L 24.8 L (39.0-53.0) % Plt Count 224 249 (150-450) k/uL Comprehensive Metabolic Panel 02/12/24 02/13/24 Range/Units 08:42 06:29 Sodium 130 L 132 L (137-145) mmol/L Potassium 3.5 4.2 (3.5-5.1) mmol/L Chloride 100 102 (98-107) mmol/L Carbon Dioxide 23 23 (22-30) mmol/L BUN 9 10 (9-20) mg/dL Creatinine 0.52 L 0.45 L (0.66-1.25) mg/dL Glucose 89 89 (74-99) mg/dL Calcium 7.9 L 8.0 L (8.4-10.2) mg/dL Current Medications Generic Name Dose Route Start Last Admin Trade Name Freq PRN Reason Stop Dose Admin Albuterol Sulfate 2.5 mg 02/09/24 11:18 Albuterol Nebulized 2.5 Mg/3 Ml INHALATION RT-Q4H PRN Shortness Of Breath Budesonide/Formoterol Fumarate 2 puff 02/10/24 08:00 02/13/24 08:23 Symbicort 80-4.5 Mcg Inhaler INHALATION 2 puff RT-BID HERIBERTO Administration Buspirone HCl 5 mg 02/11/24 21:00 02/13/24 08:04 Buspirone Hcl 5 Mg Tab PO 5 mg BID HERIBERTO Administration Cefdinir 300 mg 02/09/24 21:00 02/13/24 08:04 Cefdinir 300 Mg Cap PO 02/13/24 23:59 300 mg BID HERIBERTO Administration Chlordiazepoxide HCl 20 mg 02/12/24 12:15 02/13/24 08:03 Chlordiazepoxide 10 Mg Cap PO 20 mg TID HERIBERTO Administration Diltiazem HCl 120 mg 02/13/24 09:00 02/13/24 08:03 Diltiazem Cd 120 Mg Cap.Er.24h PO 120 mg DAILY HERIBERTO Administration Enoxaparin Sodium 40 mg 02/09/24 09:00 02/13/24 08:04 Enoxaparin 40 Mg/0.4 Ml Syringe SQ 40 mg DAILY HERIBERTO Administration Folic Acid 1 mg 02/10/24 09:00 02/13/24 08:04 Folic Acid 1 Mg Tab PO 1 mg DAILY HERIBERTO Administration Sodium Chloride 1,000 mls @ 100 mls/hr 02/09/24 20:00 02/13/24 02:39 Saline 0.9% IV 100 mls/hr .Q10H HERIBERTO Administration Ipratropium Parker 0.5 mg 02/10/24 08:00 02/13/24 08:23 Ipratropium 0.5 Mg/2.5 Ml Nebu INHALATION 0.5 mg RT-QID HERIBERTO Administration Lorazepam 1 mg 02/09/24 11:22 02/11/24 16:34 Lorazepam 1 Mg Tab PO 1 mg Q4HR PRN Administration Ciwa 6 To 7 Lorazepam 2 mg 02/09/24 11:22 Lorazepam 1 Mg Tab PO Q2HR PRN Ciwa 10 or greater Lorazepam 2 mg 02/09/24 11:22 Lorazepam 1 Mg Tab PO Q3HR PRN Ciwa 8 To 9 Magnesium Oxide 400 mg 02/12/24 12:30 02/13/24 08:03 Magnesium Oxide 400 Mg Tab PO 400 mg BID HERIBERTO Administration Naloxone HCl 0.2 mg 02/08/24 21:46 Naloxone 0.4 Mg/Ml 1 Ml Vial IV Q2M PRN Opioid Reversal Pantoprazole Sodium 40 mg 02/11/24 11:00 02/13/24 06:35 Pantoprazole 40 Mg Tablet PO 40 mg AC-[id number] HERIBERTO Administration Thiamine HCl 100 mg 02/10/24 09:00 02/13/24 08:04 Thiamine 100 Mg Tab PO 100 mg DAILY HERIBERTO Administration Intake and Output 02/12/24 02/13/24 02/13/24 22:59 06:59 14:59 Intake Total 274 130 Output Total 575 1875 Balance -301 -1872 130 Intake: IV 10 10 Invasive Line 3 10 10 Oral 264 120 Output: Urine 576 1875 Other: Voiding Method Urinal Urinal Urinal # Bowel Movements 1 02/13/24 06:29 02/13/24 06:29
[2024-02-13] MEDS: MAGNESIUM SULFATE-D5W PMX 1 GM in DEXTROSE/WATER 1 100ML.BAG IVPB SCH (09:50)
[2024-02-13] MEDS: FERROUS SULFATE 325 MG TAB PO SCH (11:04)
--- NOTE | 2024-02-13 11:29 | P.PN ---
Subjective Patient is seen for follow-up for hyponatremia. Currently maintained on normal saline. Sodium improved to 132 No significant complaints. Discharge was held yesterday as patient developed SVT. Heart rate currently in the 70s. Patient has been evaluated by cardiology. Objective - Vital Signs Vital signs: Vital Signs Temp 98.2 F 02/13/24 11:03 Pulse 72 02/13/24 11:03 Resp 16 02/13/24 11:03 BP 110/70 02/13/24 11:03 Pulse Ox 99 02/13/24 11:03 FiO2 Intake & Output 02/12/24 02/13/24 02/13/24 18:59 06:59 18:59 Intake Total 732 130 Output Total 375 2075 Balance 357 -2075 130 Weight 71.668 kg Intake: IV 10 10 Invasive Line 3 10 10 Oral 722 120 Output: Urine 375 2075 Other: Voiding Method Toilet Urinal Urinal # Voids 2 # Bowel Movements 1 - Exam Patient is awake, comfortable, no acute distress Examination of the heart S1 and S2 Examination of the lungs bilateral breath sounds are heard Abdomen is soft nontender Examination of lower extremity shows no significant edema PASTRY MIXER exam grossly intact - Labs CBC & Chem 7: 02/13/24 06:29 02/13/24 06:29 Labs: Abnormal Lab Results - Last 24 Hours (Table) 02/12/24 02/12/24 02/13/24 Range/Units 08:42 08:42 06:29 RBC 2.52 L (4.30-5.90) m/uL Hgb 8.0 L D (13.0-17.5) gm/dL Hct 24.8 L (39.0-53.0) % RDW 21.7 H (11.5-15.5) % Sodium (137-145) mmol/L Creatinine (0.66-1.25) mg/dL Calcium (8.4-10.2) mg/dL Magnesium 0.6 L* (1.6-2.3) mg/dL Iron 25 L (65-175) UG/DL % Saturation 9.29 L (15.00-50.00) Transferrin 192.0 L (204.0-354.0) mg/dL 02/13/24 Range/Units 06:29 RBC (4.30-5.90) m/uL Hgb (13.0-17.5) gm/dL Hct (39.0-53.0) % RDW (11.5-15.5) % Sodium 132 L (137-145) mmol/L Creatinine 0.45 L (0.66-1.25) mg/dL Calcium 8.0 L (8.4-10.2) mg/dL Magnesium 1.3 L (1.6-2.3) mg/dL Iron (65-175) UG/DL % Saturation (15.00-50.00) Transferrin (204.0-354.0) mg/dL Assessment and Plan Assessment: 1. Chronic Euvolemic hyponatremia 2/2 beer potomania/low solute intake. Presented sodium 118, over corrected 127, brought back down to 119. Urine sodium <20 urine osmolality low 108. currently maintained on normal saline and sodium improved to 130. 2. Alcohol abuse. 3. Anemia, with significant iron deficiency. 4. Paroxysmal SVT, magnesium was 0.6 and has been replaced. 5. Hypomagnesemia associated with EtOH abuse and poor oral intake Plan: Okay for discharge from nephrology standpoint.
[2024-02-13 11:38] VITALS: BP 110/70; PULSE 72; TEMP 98.2; BMI 22.0
--- NOTE | 2024-02-13 13:29 | CA ---
Transthoracic Echo Report Name: Rojas Rodrigues Age: 58 Gender: M : 1965 Exam Date: 02/13/2024 07:43 Exam Location: [place] [facility] Ht (in): 71 Wt (lb): 158 Ordering Physician: Laure Dunaway DO Attending/Referring Phys: [id number], Emelyn Chef French Maryuri Patel RDCS Procedure CPT: Indications: svt Cardiac Hx: Technical Quality: Fair Contrast 1: Total Dose (mL): Contrast 2: Total Dose (mL): MEASUREMENTS (Male / Female) Normal Values 2D ECHO LV Diastolic Diameter PLAX 4.6 cm 4.2 - 5.9 / 3.9 - 5.3 cm LV Systolic Diameter PLAX 3.1 cm IVS Diastolic Thickness 1.3 cm 0.6 - 1.0 / 0.6 - 0.9 cm LVPW Diastolic Thickness 1.0 cm 0.6 - 1.0 / 0.6 - 0.9 cm LV Relative Wall Thickness 0.5 RV Internal Dim ED PLAX 3.0 cm LA Systolic Diameter LX 3.7 cm 3.0 - 4.0 / 2.7 - 3.8 cm LV Diastolic Volume MOD BP 107.1 cm??? 67 - 155 / 56 - 104 cm??? LV Systolic Volume MOD BP 37.1 cm??? 22 - 58 / 19 - 49 cm??? LV Ejection Fraction MOD BP 65.4 % >= 55 % LV Cardiac Index MOD BP 2885.2 cm???/min???m??? LV Diastolic Volume MOD 4C 112.3 cm??? LV Systolic Volume MOD 4C 51.6 cm??? LV Ejection Fraction MOD 4C 54.0 % LV Cardiac Index MOD 4C 2500.2 cm???/min???m??? LV Diastolic Length 4C 9.4 cm LV Systolic Length 4C 7.5 cm LV Diastolic Volume MOD 2C 78.4 cm??? LV Systolic Volume MOD 2C 33.0 cm??? LV Ejection Fraction MOD 2C 57.9 % LV Cardiac Index MOD 2C 1871.7 cm???/min???m??? LV Diastolic Length 2C 7.9 cm LV Systolic Length 2C 7.0 cm M-MODE Aortic Root Diameter MM 3.6 cm DOPPLER AV Peak Velocity 145.6 cm/s AV Peak Gradient 8.5 mmHg Mitral E Point Velocity 73.4 cm/s Mitral A Point Velocity 92.8 cm/s Mitral E to A Ratio 0.8 MV Deceleration Time 251.3 ms MV E' Velocity 9.3 cm/s Mitral E to MV E' Ratio 7.9 TR Peak Velocity 220.9 cm/s TR Peak Gradient 19.5 mmHg Right Ventricular Systolic Press 29.5 mmHg FINDINGS Left Ventricle Left ventricular ejection fraction is estimated at 60-65 %. Left ventricular cavity size normal. Mildly increased septal wall thickness. Right Ventricle Normal right ventricular size. Mild pulmonary hypertension. Right Atrium Normal right atrial size. Left Atrium Normal left atrial size. Mitral Valve Structurally normal mitral valve. No mitral stenosis, regurgitation or prolapse. Aortic Valve Trileaflet aortic valve. No aortic valve stenosis or regurgitation. Tricuspid Valve Structurally normal tricuspid valve. Mild tricuspid regurgitation. Pulmonic Valve Structurally normal pulmonic valve. No pulmonic regurgitation. Pericardium No pericardial effusion. Aorta Normal size aortic root and proximal ascending aorta. CONCLUSIONS Normal LV systolic function Previewed by: Dr. Jeffrey Wallace MD (Electronically Signed) Final Date: 13 February 2024 13:28
--- NOTE | 2024-02-13 14:37 | P.DS ---
Providers Date of admission: 02/08/24 22:06 Expected date of discharge: 02/13/24 Attending physician: Yonatan Larson MD Consults: 02/08/24 22:00 Consult Physician Urgent Consulting Provider: Virgilio Collado Consult Reason/Comments: acute/chronic hyponatremia, etoh abuse Do you want consulting provider notified?: Already Contacted 02/12/24 12:03 Consult Physician Routine Consulting Provider: Jeffrey Wallace Consult Reason/Comments: SVT Do you want consulting provider notified?: Yes Primary care physician: Mateusz Gloria Hospital Course: Discharge Diagnosis: Acute on chronic euvolemic hyponatremia secondary to poor solute intake Alcohol dependency SVT Hypomagnesemia Iron deficiency anemia Osteomyelitis of the second right great toe COPD Depression Chronic normocytic anemia, Hospital Course: Patient is a 58-year-old male with a history of alcohol dependency with alcohol withdrawal seizures, COPD, peripheral neuropathy, and osteomyelitis of the right second great toe who was sent in by his primary care provider for hyponatremia. Patient had been having decreased oral intake and was drinking a pint of vodka daily. Initial laboratory analysis in the emergency room was remarkable for sodium of 118. Patient was admitted for severe hyponatremia. Nephrology was consulted. Patient was started on normal saline and had a rapid correction of his sodium level requiring D5 water and desmopressin. His sodium levels stabilized. He continued to improve. Discharge was planned for 02/11 when the patient went into SVT with ambulation. Cardiology was consulted. Magnesium came back at 0.6. Follow-up: Dr. Wallace in 2 weeks, Dr. Gloria in 1 to 2 days, repeat basic metabolic profile in 4 days. Maintain off of Zoloft. Sodium chloride 1 g daily for 2 days post discharge. Encouraged oral intake with abstaining from alcohol. He will follow-up with Dr. Doyle's office in 2 weeks. He has significant iron deficiency anemia with a tSAT <10 should have age appropriate cancer screening, if not already preformed. He will continue his outpatient oral antibiotics for his right toe wound Patient seen and examined at bedside. He denies any lightheadedness, dizziness, chest pain or palpitations. He is feeling well and wants to go home. He states his alcohol withdrawal symptoms are doing even better today. Vital signs reviewed and stable. General: Nontoxic, no distress, appears at stated age Cardiovascular: S1S2 reg, no murmur, positive posterior tibial pulse bilateral, Lungs: CTA bilateral, no rhonchi, no rales, no accessory muscle use Abdominal: Soft, nontender to palpation, no guarding, no appreciable organomegaly Ext: No gross muscle atrophy, no edema b/l lower extremities, no contractures Neuro: CN II-XI grossly intact, no focal neuro deficits Psych: Alert, oriented, appropriate affect A total of 37 minutes of time were spent preparing this complex discharge summary. Patient was discharged on 02/13/24. This dictation was prepared using [employer] voice recognition software. Though every attempt is made to correct errors during dictation some may still exist. Patient Condition at Discharge: Stable Plan - Discharge Summary Discharge Rx Participant: Yes New Discharge Prescriptions: New Diltiazem Cd [Cardizem CD] 120 mg PO DAILY #30 cap Thiamine [Vitamin B-1] 100 mg PO DAILY #30 tab Sodium Chloride Tab 1 gm PO DAILY #2 tablet Folic Acid 1 mg PO DAILY #30 tab Ferrous Sulfate [Iron (65 MG Elemental)] 325 mg PO BID-W/MEALS #30 tab Magnesium Oxide [Mag-Ox] 400 mg PO BID #60 tab Continue busPIRone HCL 5 mg PO BID Albuterol Sulfate [Proair Hfa] 2 puff INHALATION RT-Q4H PRN PRN Reason: Shortness Of Breath Acetaminophen Tab [Tylenol] 650 mg PO Q6HR PRN tab PRN Reason: Fever and/ or Mild Pain cefUROXime axetiL [Ceftin] 500 mg PO BID traZODone HCL 50 mg PO HS PRN PRN Reason: Insomnia Fluticasone/Umeclidin/Vilanter [Trelegy Ellipta 100-62.5-25] 1 puff INHALATION RT-DAILY Ammonium Lactate Lotion [Lac-Hydrin 12% Lotion] 1 applic TOPICAL BID PRN PRN Reason: DRYNESS Discontinued Magnesium Oxide [Mag-Ox] 500 mg PO DAILY Ibuprofen 800 mg PO TID PRN PRN Reason: Pain Sertraline [Zoloft] 25 mg PO DAILY Celecoxib [CeleBREX] 100 mg PO BID PRN PRN Reason: Pain Discharge Medication List Albuterol Sulfate [Proair Hfa] 2 puff INHALATION RT-Q4H PRN 08/16/21 [History] busPIRone HCL 5 mg PO BID 08/16/21 [History] traZODone HCL 50 mg PO HS PRN 08/16/21 [History] Acetaminophen Tab [Tylenol] 650 mg PO Q6HR PRN tab 12/01/21 [Rx] Fluticasone/Umeclidin/Vilanter [Trelegy Ellipta 100-62.5-25] 1 puff INHALATION RT-DAILY 02/01/24 [History] Ammonium Lactate Lotion [Lac-Hydrin 12% Lotion] 1 applic TOPICAL BID PRN 02/08/24 [History] cefUROXime axetiL [Ceftin] 500 mg PO BID 02/08/24 [History] Diltiazem Cd [Cardizem CD] 120 mg PO DAILY #30 cap 02/13/24 [Rx] Ferrous Sulfate [Iron (65 MG Elemental)] 325 mg PO BID-W/MEALS #30 tab 02/13/24 [Rx] Folic Acid 1 mg PO DAILY #30 tab 02/13/24 [Rx] Magnesium Oxide [Mag-Ox] 400 mg PO BID #60 tab 02/13/24 [Rx] Sodium Chloride Tab 1 gm PO DAILY #2 tablet 02/13/24 [Rx] Thiamine [Vitamin B-1] 100 mg PO DAILY #30 tab 02/13/24 [Rx] Follow up Appointment(s)/Referral(s): Stormy Doyle MD [STAFF PHYSICIAN] - 02/25/24 2:00 pm Jeffrey Wallace MD [STAFF PHYSICIAN] - 03/04/24 11:00 am Mateusz Gloria DO [Primary Care Provider] - 02/14/24 2:20 pm Ambulatory/Diagnostic Orders: Basic Metabolic Panel [LAB.AMB] Time Frame: 3 Days, Location: None Selected Patient Instructions/Handouts: Seizure/Epilepsy Discharge Instructions & Follow-Up, Alcohol Intoxication (DC) Activity/Diet/Wound Care/Special Instructions: Activity: As tolerated Diet: regular Special Instructions: Blood work in 2 days Abstain fro alcohol Your blood count is low and you should discuss what other steps need to be completed to investigate this with Dr. Gloria. Discharge/Stand Alone Forms: AA Meetings [place], Outpatient Counseling, Inp Substance Abuse Facilities
--- NOTE | 2024-02-14 16:26 | CDI ---
Documentation Clarification Form Date: 02/14/2024 04:16:55 PM From: Rebeka Long Phone: Admit Date: 02/08/2024 10:06:00 PM Patient Name: Rojas Rodrigues Visit Number: [id number] Discharge Date: 02/13/2024 04:01:00 PM ATTENTION: The Clinical Documentation Specialists (CDI) and [facility] Coding Staff appreciate your assistance in clarifying documentation. Please respond to the clarification below the line at the bottom and electronically sign. The CDI & [facility] Coding staff will review the response and follow-up if needed. Please note: Queries are made part of the Legal Health Record. If you have any questions, please contact the author of this message via ITS. Dr. Laure Dunaway Neuropathyis documented per PMH Notes and patient is noted to be an alcoholic. Please clarify if there is a relationship between the diagnoses. History/Risk Factors: 58yo M, A/Chyponatremiad/t poor solute intake, ETOH dependency, SVT, hypomagnesemia, LO, osteomyelitiss/p amputation 2nd Rt great toe, COPD, depression, chronicnormocytic anemia Clinical Indicators: peripheral neuropathy of feet and arms in base of neck Treatment: alcohol withdrawal symptoms are mild. He has a counselor at home and will work on cutting down alcohol intake. Please clarify the relationship, if any, which is clinically appropriate for this patient: [ ] Neuropathy is due to Alcoholism [ ] Neuropathy is not due to Alcoholism [ ] Other explanation of clinical findings (please specify) [ x ] Unable to determine (no explanation for clinical findings) (Template Last Revised: January 2021) MTDD
== END 2024-02-13 16:01 | disposition home or self-care (01) | DRG 641 ==
LOC: EC 18:13 → 3SCARD 22:06
PROVIDERS: ADMIT Internal Medicine; ATTEND Internal Medicine
DX: E87.1 Hypo-osmolality and hyponatremia (principal); M86.8X7 Other osteomyelitis, ankle and foot; I47.19 Other supraventricular tachycardia; F10.288 Alcohol dependence with other alcohol-induced disorder; F10.239 Alcohol dependence with withdrawal, unspecified; J44.9 Chronic obstructive pulmonary disease, unspecified; F31.9 Bipolar disorder, unspecified; F10.229 Alcohol dependence with intoxication, unspecified; D50.9 Iron deficiency anemia, unspecified; G62.9 Polyneuropathy, unspecified; F17.210 Nicotine dependence, cigarettes, uncomplicated; E83.42 Hypomagnesemia; I44.7 Left bundle-branch block, unspecified; F41.9 Anxiety disorder, unspecified; Y90.2 Blood alcohol level of 40-59 mg/100 ml; Z79.51 Long term (current) use of inhaled steroids; Z79.899 Other long term (current) drug therapy; Z86.69 Personal history of other diseases of the nervous system and sense organs; Z81.8 Family history of other mental and behavioral disorders; Z89.411 Acquired absence of right great toe; Z87.19 Personal history of other diseases of the digestive system
CPT/HCPCS: 36415; 80048; 80053; 80320; 81003; 82570; 83540; 83550; 83690; 83735; 83930; 83935; 84295; 84300; 84443; 85025; 85027; 93005; 93306; 94640; 96360; 99284; 99285

== ENCOUNTER → 2024-02-15 | Outpatient (CLI) | payer MEDICARE, OTHER ==
[2024-02-15 13:39] LABS: Anisocytosis Moderate; Basophils # (A) 0.1 k/uL (0-0.2); Basophils % (A) 1 %; Eosinophils # (A) 0.1 k/uL (0-0.7); Eosinophils % (A) 1 %; HGB 8.2 gm/dL (13.0-17.5); Hypochromasia Slight; Lymphocytes # (A) 1.4 k/uL (1.0-4.8); Lymphocytes % (A) 19 %; MCH 31.7 pg (25.0-35.0); MCHC 31.7 g/dL (31.0-37.0); MCV 99.9 fL (80.0-100.0); Macrocytosis Moderate; Mean Platelet Volume 7.3; Monocytes # (A) 0.9 k/uL (0-1.0); Monocytes % (A) 13 %; Neutrophils # (A) 4.5 k/uL (1.3-7.7); Neutrophils % (A) 64 %; Platelet Count 398 k/uL (150-450); RDW 20.9 % (11.5-15.5); WBC 7.1 k/uL (3.8-10.6)
[2024-02-15 17:29] LABS: Protein, Total 7.3 g/dL (6.2-8.2)
[2024-02-15 18:07] LABS: % Iron Saturation 9.18 (15.00-50.00); ALT 57 U/L (10-49); AST 45 U/L (14-35); Albumin/Globulin Ratio 1.29 Ratio (1.60-3.17); Alkaline Phosphatase 271 U/L (41-126); BUN/Creat Ratio 17.67 Ratio (12.00-20.00); Blood Urea Nitrogen 10.6 mg/dL (9.0-27.0); Calcium 8.9 mg/dL (8.7-10.3); Carbon Dioxide 23.3 mmol/L (21.6-31.8); Chloride 96 mmol/L (96-109); Globulin 3.1 g/dL (1.6-3.3); Glucose 90 mg/dL (70-110); Iron 28 UG/DL (65-175); Magnesium 1.3 mg/dL (1.5-2.4); Potassium 3.9 mmol/L (3.5-5.5); Sodium 132 mmol/L (135-145); Total Bilirubin 0.3 mg/dL (0.3-1.2); Total Iron Binding Capacity 305 UG/DL (228-460); Total Protein 7.1 g/dL (6.2-8.2)
== END | disposition home or self-care (01) ==
LOC: LABWHC1 13:04
PROVIDERS: ATTEND Internal Medicine
DX: E87.1 Hypo-osmolality and hyponatremia (principal); D64.9 Anemia, unspecified; E83.42 Hypomagnesemia
CPT/HCPCS: 36415; 80053; 82607; 82728; 82746; 83540; 83550; 83735; 84165; 85025

== ENCOUNTER → 2024-02-22 | Outpatient (CLI) | payer MEDICARE, OTHER ==
--- NOTE | 2024-02-22 09:26 | US ---
EXAMINATION TYPE: US abdomen complete DATE OF EXAM: 02/22/2024 COMPARISON: NONE CLINICAL INDICATION: Male, 58 years old with history of R74.01 ELEVATED TRANSAMINASE LEVEL; LFTs TECHNIQUE: Multiple sonographic images of the abdomen are obtained. FINDINGS: EXAM MEASUREMENTS: Liver Length: 12.6 cm Gallbladder Wall: 0.1 cm CBD: 0.4 cm Spleen: 9.6 cm Right Kidney: 12.1x4.2x5.4 cm Left Kidney: 11.4x4.1x4.9 cm BUILDING CARPENTER HELPER NOTES: Pancreas: wnl, duct dilated to 0.1cm Liver: wnl Gallbladder: wnl Evidence for sonographic Ragland's sign: No CBD: wnl Spleen: wnl Right Kidney: No hydronephrosis or masses seen Left Kidney: No hydronephrosis or masses seen Upper IVC: wnl Abd Aorta: plaque throughout, most prominent distally Exam limited by bowel gas IMPRESSION: 1. No suspicious acute abdomen ultrasound abnormality
[2024-02-22 11:11] LABS: Basophils # (A) 0.11 X 10*3/uL (0.00-0.10); Basophils % (A) 1.2 %; Eosinophils % (A) 1.1 %; HCT 27.4 % (39.6-50.0); HGB 8.9 g/dL (13.0-17.0); Lymphocytes # (A) 2.16 X 10*3/uL (0.90-5.00); Lymphocytes % (A) 23.2 %; MCH 31.8 pg (27.0-32.0); MCHC 32.5 g/dL (32.0-37.0); MCV 97.9 FL (80.0-97.0); Mean Platelet Volume 9.2 FL (9.5-12.2); Monocytes # (A) 1.09 X 10*3/uL (0.20-1.00); Monocytes % (A) 11.7 %; NRBC Per 100 WBC 0 X 10*3/uL (0.00-0.01); Neutrophils # (A) 5.78 X 10*3/uL (1.80-7.70); Platelet Count 473 X 10*3/uL (140-440); RDW 21.1 % (11.5-14.5); WBC 9.31 X 10*3/uL (4.50-10.00)
[2024-02-22 11:52] LABS: ALT 21 U/L (10-49); AST 30 U/L (14-35); Albumin 4.1 g/dL (3.8-4.9); Albumin/Globulin Ratio 1.11 Ratio (1.60-3.17); Alkaline Phosphatase 215 U/L (41-126); BUN/Creat Ratio 11.17 Ratio (12.00-20.00); Blood Urea Nitrogen 6.7 mg/dL (9.0-27.0); Calcium 9.5 mg/dL (8.7-10.3); Carbon Dioxide 27.4 mmol/L (21.6-31.8); Chloride 94 mmol/L (96-109); Globulin 3.7 g/dL (1.6-3.3); Glucose 79 mg/dL (70-110); Magnesium 1.5 mg/dL (1.5-2.4); Potassium 4.7 mmol/L (3.5-5.5); Sodium 135 mmol/L (135-145); Total Bilirubin 0.3 mg/dL (0.3-1.2); Total Protein 7.8 g/dL (6.2-8.2)
== END | disposition home or self-care (01) ==
LOC: RADUSWWP 06:54
PROVIDERS: ATTEND Internal Medicine
DX: R74.01 Elevation of levels of liver transaminase levels (principal); D64.9 Anemia, unspecified
CPT/HCPCS: 36415; 76700; 80053; 83735; 85025

== ENCOUNTER → 2024-03-12 | Outpatient (CLI) | payer MEDICARE ==
[2024-03-13 02:51] LABS: Basophils # (A) 0.06 X 10*3/uL (0.00-0.10); Basophils % (A) 0.9 %; Eosinophils # (A) 0.11 X 10*3/uL (0.04-0.35); Eosinophils % (A) 1.6 %; HCT 32.7 % (39.6-50.0); HGB 10.4 g/dL (13.0-17.0); Lymphocytes # (A) 2.12 X 10*3/uL (0.90-5.00); Lymphocytes % (A) 30.3 %; MCH 32.7 pg (27.0-32.0); MCHC 31.8 g/dL (32.0-37.0); MCV 102.8 FL (80.0-97.0); Mean Platelet Volume 9.6 FL (9.5-12.2); Monocytes # (A) 0.79 X 10*3/uL (0.20-1.00); Monocytes % (A) 11.3 %; NRBC Per 100 WBC 0 X 10*3/uL (0.00-0.01); Neutrophils # (A) 3.89 X 10*3/uL (1.80-7.70); Neutrophils % (A) 55.6 %; Platelet Count 261 X 10*3/uL (140-440); RBC 3.18 X 10*6/uL (4.40-5.60); RDW 18.6 % (11.5-14.5); WBC 6.99 X 10*3/uL (4.50-10.00)
[2024-03-13 03:28] LABS: Hepatitis B Surface Antigen Nonreactive (Nonreactive); Hepatitis C IgG Antibody Nonreactive (Nonreactive)
[2024-03-13 03:44] LABS: ALT 12 U/L (10-49); AST 29 U/L (14-35); Albumin/Globulin Ratio 1.21 Ratio (1.60-3.17); Alkaline Phosphatase 140 U/L (41-126); BUN/Creat Ratio 13.22 Ratio (12.00-20.00); Blood Urea Nitrogen 11.9 mg/dL (9.0-27.0); Calcium 9.5 mg/dL (8.7-10.3); Carbon Dioxide 23.7 mmol/L (21.6-31.8); Chloride 97 mmol/L (96-109); Globulin 3.3 g/dL (1.6-3.3); Glucose 80 mg/dL (70-110); Potassium 4.6 mmol/L (3.5-5.5); Sodium 138 mmol/L (135-145); Total Bilirubin <0.2 mg/dL (0.3-1.2); Total Protein 7.3 g/dL (6.2-8.2)
== END | disposition home or self-care (01) ==
LOC: LABWHC1 16:03
PROVIDERS: ATTEND Internal Medicine Gastroenterology
DX: R74.01 Elevation of levels of liver transaminase levels (principal)
CPT/HCPCS: 36415; 80053; 81596; 85025; 86803; 87340

== ENCOUNTER → 2024-04-16 | Outpatient (CLI) | payer MEDICARE ==
[2024-04-16 18:29] LABS: Basophils # (A) 0.06 X 10*3/uL (0.00-0.10); Basophils % (A) 0.9 %; Eosinophils # (A) 0.07 X 10*3/uL (0.04-0.35); HCT 38.3 % (39.6-50.0); HGB 12.6 g/dL (13.0-17.0); Lymphocytes # (A) 2.21 X 10*3/uL (0.90-5.00); MCH 33.4 pg (27.0-32.0); MCHC 32.9 g/dL (32.0-37.0); MCV 101.6 FL (80.0-97.0); Mean Platelet Volume 9.4 FL (9.5-12.2); Monocytes # (A) 0.59 X 10*3/uL (0.20-1.00); Monocytes % (A) 8.8 %; NRBC Per 100 WBC 0 X 10*3/uL (0.00-0.01); Neutrophils # (A) 3.76 X 10*3/uL (1.80-7.70); Neutrophils % (A) 56.2 %; Platelet Count 317 X 10*3/uL (140-440); RBC 3.77 X 10*6/uL (4.40-5.60); RDW 14.6 % (11.5-14.5)
[2024-04-16 20:55] LABS: % Iron Saturation 30.51 (15.00-50.00); ALT 40 U/L (10-49); AST 48 U/L (14-35); Albumin 4.4 g/dL (3.8-4.9); Albumin/Globulin Ratio 1.57 Ratio (1.60-3.17); Alkaline Phosphatase 135 U/L (41-126); BUN/Creat Ratio 8.25 Ratio (12.00-20.00); Blood Urea Nitrogen 6.6 mg/dL (9.0-27.0); Calcium 9.1 mg/dL (8.7-10.3); Carbon Dioxide 23.1 mmol/L (21.6-31.8); Chloride 101 mmol/L (96-109); Globulin 2.8 g/dL (1.6-3.3); Glucose 113 mg/dL (70-110); Iron 108 UG/DL (65-175); Magnesium 1.3 mg/dL (1.5-2.4); Potassium 3.8 mmol/L (3.5-5.5); Sodium 139 mmol/L (135-145); Total Bilirubin <0.2 mg/dL (0.3-1.2); Total Iron Binding Capacity 354 UG/DL (228-460); Total Protein 7.2 g/dL (6.2-8.2)
== END | disposition home or self-care (01) ==
LOC: LABWHC1 14:55
PROVIDERS: ATTEND Internal Medicine
DX: E87.1 Hypo-osmolality and hyponatremia (principal); D64.9 Anemia, unspecified
CPT/HCPCS: 36415; 80053; 82607; 82728; 82746; 83540; 83550; 83735; 84443; 85025

== ENCOUNTER → 2024-06-13 | Outpatient (CLI) | payer MEDICARE ==
[2024-06-13 21:14] LABS: % Iron Saturation 51.52 (15.00-50.00); BUN/Creat Ratio 11.83 Ratio (12.00-20.00); Blood Urea Nitrogen 7.1 mg/dL (9.0-27.0); Calcium 9.1 mg/dL (8.7-10.3); Carbon Dioxide 22.7 mmol/L (21.6-31.8); Chloride 92 mmol/L (96-109); Glucose 90 mg/dL (70-110); Iron 153 UG/DL (65-175); Potassium 3.7 mmol/L (3.5-5.5); Sodium 131 mmol/L (135-145); Total Iron Binding Capacity 297 UG/DL (228-460)
[2024-06-14 01:40] LABS: HCT 35.7 % (39.6-50.0); HGB 12.5 g/dL (13.0-17.0); MCH 35.1 pg (27.0-32.0); MCV 100.3 FL (80.0-97.0); Mean Platelet Volume 10.5 FL (9.5-12.2); NRBC Per 100 WBC 0 X 10*3/uL (0.00-0.01); Platelet Count 220 X 10*3/uL (140-440); RBC 3.56 X 10*6/uL (4.40-5.60); RDW 13.5 % (11.5-14.5); WBC 6.21 X 10*3/uL (4.50-10.00)
== END | disposition home or self-care (01) ==
LOC: LABWHC1 15:54
PROVIDERS: ATTEND Internal Medicine
DX: E87.1 Hypo-osmolality and hyponatremia (principal); D64.9 Anemia, unspecified
CPT/HCPCS: 36415; 80048; 82728; 83540; 83550; 83735; 83930; 83935; 84300; 85027

== ENCOUNTER → 2024-06-20 | Outpatient (CLI) | payer MEDICARE | END | disposition home or self-care (01) | LOC: LABWHC1 10:18 | PROVIDERS: ATTEND Internal Medicine | DX: E87.1 Hypo-osmolality and hyponatremia (principal) | CPT/HCPCS: 36415; 82533; 84443 ==

== ENCOUNTER → 2024-07-18 | Outpatient (CLI) | payer MEDICARE | END | disposition home or self-care (01) | LOC: LABWHC1 11:12 | DX: Z53.9 Procedure and treatment not carried out, unspecified reason (principal) ==

== ENCOUNTER 2024-10-10 18:22 | Inpatient (IN) | payer MEDICARE ==
[2024-10-10 20:03] LABS: Basophils # (A) 0.1 k/uL (0-0.2); Basophils % (A) 1 %; Eosinophils # (A) 0.1 k/uL (0-0.7); Eosinophils % (A) 1 %; HCT 35.7 % (39.0-53.0); HGB 12.3 gm/dL (13.0-17.5); Lymphocytes # (A) 2.3 k/uL (1.0-4.8); Lymphocytes % (A) 28 %; MCH 35.5 pg (25.0-35.0); MCHC 34.4 g/dL (31.0-37.0); MCV 103.1 fL (80.0-100.0); Macrocytosis Slight; Mean Platelet Volume 6.6; Monocytes # (A) 0.6 k/uL (0-1.0); Monocytes % (A) 7 %; Neutrophils # (A) 5.2 k/uL (1.3-7.7); Neutrophils % (A) 62 %; Platelet Count 286 k/uL (150-450); RBC 3.46 m/uL (4.30-5.90); RDW 12.6 % (11.5-15.5); WBC 8.4 k/uL (3.8-10.6)
[2024-10-10 20:16] LABS: ALT 42 U/L (4-49); AST 100 U/L (17-59); African American GFR (CKD) >90 (>60 ml/min/1.73 sqM); Albumin 4.7 g/dL (3.5-5.0); Alkaline Phosphatase 128 U/L (38-126); Anion Gap 13 mmol/L; Blood Urea Nitrogen 5 mg/dL (9-20); Calcium 8.9 mg/dL (8.4-10.2); Carbon Dioxide 20 mmol/L (22-30); Chloride 92 mmol/L (98-107); Glucose 89 mg/dL (74-99); Magnesium 1.2 mg/dL (1.6-2.3); Non-African American GFR(CKD) >90 (>60 ml/min/1.73 sqM); Potassium 4.3 mmol/L (3.5-5.1); Sodium 125 mmol/L (137-145); Total Bilirubin 0.7 mg/dL (0.2-1.3); Total Protein 8.3 g/dL (6.3-8.2)
[2024-10-10 20:26] LABS: Alcohol 396 mg/dL
[2024-10-10] MEDS ORDERED: NALOXONE 0.4 MG/ML 1 ML VIAL IV PRN (20:58)
--- NOTE | 2024-10-10 21:02 | ED ---
General Adult HPI - General Chief complaint: Alcohol Stated complaint: ETOH Time Seen by Provider: 10/10/24 19:44 Source: patient, RN notes reviewed, old records reviewed Mode of arrival: ambulatory Limitations: no limitations - History of Present Illness Initial comments: 59-year-old male presenting with alcohol intoxication, patient requests alcohol detox. Patient is a daily drinker, drinks approximately 1/5 daily. He drank just prior to arrival. He states he has gone to rehab in the past many times. - Related Data Home Medications Medication Instructions Recorded Confirmed Albuterol Sulfate [Proair Hfa] 2 puff INHALATION RT-Q4H PRN 08/16/21 02/08/24 busPIRone HCL 5 mg PO BID 08/16/21 02/08/24 traZODone HCL 50 mg PO HS PRN 08/16/21 02/08/24 Fluticasone/Umeclidin/Vilanter 1 puff INHALATION RT-DAILY 02/01/24 02/08/24 [Trelegy Ellipta 100-62.5-25] Ammonium Lactate Lotion 1 applic TOPICAL BID PRN 02/08/24 02/08/24 [Lac-Hydrin 12% Lotion] cefuroxime axetiL [Ceftin] 500 mg PO BID 02/08/24 02/08/24 Previous Rx's Medication Instructions Recorded Acetaminophen Tab [Tylenol] 650 mg PO Q6HR PRN tab 12/01/21 Diltiazem Cd [Cardizem CD] 120 mg PO DAILY #30 cap 02/13/24 Ferrous Sulfate [Iron (65 MG 325 mg PO BID-W/MEALS #30 tab 02/13/24 Elemental)] Folic Acid 1 mg PO DAILY #30 tab 02/13/24 Magnesium Oxide [Mag-Ox] 400 mg PO BID #60 tab 02/13/24 Sodium Chloride Tab 1 gm PO DAILY #2 tablet 02/13/24 Thiamine [Vitamin B-1] 100 mg PO DAILY #30 tab 02/13/24 Allergies Allergy/AdvReac Type Severity Reaction Status Date / Time No Known Allergies Allergy Verified 10/10/24 19:05 Review of Systems ROS Statement: Those systems with pertinent positive or pertinent negative responses have been documented in the HPI. ROS Other: All systems not noted in ROS Statement are negative. Past Medical History Past Medical History: COPD, GERD/Reflux, Pneumonia, Seizure Disorder, Syncope Additional Past Medical History / Comment(s): Neuropathy feet and arms in base of neck. Severe ETOH abuse. Hx alcohol withdrawal seizures/DTs, 1 yr ago, aspiration pneumonia, encephalopathy d/t alcohol, thrombocytopenia, chronic SOB. 3 years since only seizure. looking at disc issues will be sent to specialist. healing wound to rt great toe where it was amputated,dressed.completed abx(cefaz loren) via torres to rt chest, visiting nurse once a week now. pt is a fair historian History of Any Multi-Drug Resistant Organisms: None Reported Past Surgical History: Ear Surgery, Tonsillectomy Additional Past Surgical History / Comment(s): Bilateral mastoidectomies, sinus surgery and vocal cord scraping, cataract surgery, blocks for migraines. i & d ghazala elbows , torres, amputation of rt grt toe., torres removed 02/04/24 Past Anesthesia/Blood Transfusion Reactions: No Reported Reaction Past Psychological History: Anxiety, Bipolar, Depression Smoking Status: Current every day smoker Past Alcohol Use History: Abuse, Daily, Heavy Past Drug Use History: Marijuana - Past Family History Father Family Medical History: Cancer Mother Family Medical History: Hyperlipidemia Brother(s) Additional Family Medical History / Comment(s): Bipolar, schizoprenia. General Exam Limitations: no limitations General appearance: alert, appears intoxicated Head exam: Present: atraumatic, normocephalic Eye exam: Present: normal appearance, PERRL ENT exam: Present: normal exam Neck exam: Present: normal inspection. Absent: tenderness, meningismus Respiratory exam: Present: wheezes. Absent: respiratory distress Cardiovascular Exam: Present: regular rate, normal rhythm GI/Abdominal exam: Present: soft. Absent: distended, tenderness Neurological exam: Present: alert, oriented X3, CN II-XII intact. Absent: motor sensory deficit Skin exam: Present: warm, dry, intact Course Vital Signs 10/10/24 19:06 Temperature 97.8 F Pulse Rate 81 Respiratory 18 Rate Blood Pressure 129/82 O2 Sat by Pulse 97 Oximetry Medical Decision Making - Medical Decision Making Was pt. sent in by a medical professional or institution (, PA, [employer]OR, urgent care, hospital, or prison...) When possible be specific @ -No Did you speak to anyone other than the patient for history (EMS, parent, family, police, friend...)? What history was obtained from this source @ -No Did you review nursing and triage notes (agree or disagree)? Why? @ -I reviewed and agree with nursing and triage notes Were old charts reviewed (outside hosp., previous admission, EMS record, old EKG, old radiological studies, urgent care reports/EKG's, prison records)? Report findings @ -No old charts were reviewed Differential Diagnosis alcohol intoxication, alcohol withdrawal, seizure, delirium tremens EKG interpreted by me (3pts min.). @ -As above X-rays interpreted by me (1pt min.). @ -None done CT interpreted by me (1pt min.). @ -None done U/S interpreted by me (1pt. min.). @ -None done What testing was considered but not performed or refused? (CT, X-rays, U/S, labs)? Why? @ -None What meds were considered but not given or refused? Why? @ -None Did you discuss the management of the patient with other professionals (professionals i.e. , PA, [employer]OR, lab, RT, psych nurse, rn social services, sweatband cutting machine operator, teacher, chief digital media officer, director case)? Give summary @ -No Was smoking cessation discussed for >3mins.? @ -No Was critical care preformed (if so, how long)? @ -No Were there social determinants of health that impacted care today? How? (Homelessness, low income, unemployed, alcoholism, drug addiction, transportation, low edu. Level, literacy, decrease access to med. care, fci, rehab)? @ -No Was there de-escalation of care discussed even if they declined (Discuss DNR or withdrawal of care, Hospice)? DNR status @ -No What co-morbidities impacted this encounter? (DM, HTN, Smoking, COPD, CAD, Cancer, CVA, ARF, Chemo, Hep., AIDS, mental health diagnosis, sleep apnea, morbid obesity)? @ -[Alcohol abuse Was patient admitted / discharged? Hospital course, mention meds given and route, prescriptions, significant lab abnormalities, going to OR and other pertinent info. @ -59-year-old male with acute alcohol intoxication. Alcohol level is 400. Patient's magnesium is 1.2. Given IV fluid, IV magnesium. Admitted for acute alcohol intoxication. Case discussed with Dr. Serrano who will admit. Undiagnosed new problem with uncertain prognosis? @ -[No Drug Therapy requiring intensive monitoring for toxicity (Heparin, Nitro, Insulin, Cardizem)? @ -No Were any procedures done? @ -No Diagnosis/symptom? @ -Alcohol intoxication, hypomagnesemia Acute, or Chronic, or Acute on Chronic? @Acute on chronic Uncomplicated (without systemic symptoms) or Complicated (systemic symptoms)? @ -Default Side effects of treatment? @ -No Exacerbation, Progression, or Severe Exacerbation? @ -No Poses a threat to life or bodily function? How? (Chest pain, [place], [place], pneumonia, PE, COPD, DKA, ARF, appy, cholecystitis, CVA, Diverticulitis, Homicidal, Suicidal, threat to staff... and all critical care pts) @Yes, alcohol withdrawal, delirium tremens - Lab Data Result diagrams: 10/10/24 19:49 10/10/24 19:49 Lab Results 10/10/24 10/10/24 Range/Units 19:49 19:49 WBC 8.4 (3.8-10.6) k/uL RBC 3.46 L (4.30-5.90) m/uL Hgb 12.3 L (13.0-17.5) gm/dL Hct 35.7 L (39.0-53.0) % MCV 103.1 H (80.0-100.0) fL MCH 35.5 H (25.0-35.0) pg MCHC 34.4 (31.0-37.0) g/dL RDW 12.6 (11.5-15.5) % Plt Count 286 (150-450) k/uL MPV 6.6 Neutrophils % 62 % Lymphocytes % 28 % Monocytes % 7 % Eosinophils % 1 % Basophils % 1 % Neutrophils # 5.2 (1.3-7.7) k/uL Lymphocytes # 2.3 (1.0-4.8) k/uL Monocytes # 0.6 (0-1.0) k/uL Eosinophils # 0.1 (0-0.7) k/uL Basophils # 0.1 (0-0.2) k/uL Macrocytosis Slight Sodium 125 L (137-145) mmol/L Potassium 4.3 (3.5-5.1) mmol/L Chloride 92 L (98-107) mmol/L Carbon Dioxide 20 L (22-30) mmol/L Anion Gap 13 mmol/L BUN 5 L (9-20) mg/dL Creatinine 0.66 (0.66-1.25) mg/dL Est GFR (CKD-EPI)AfAm >90 (>60 ml/min/1.73 sqM) Est GFR (CKD-EPI)NonAf >90 (>60 ml/min/1.73 sqM) Glucose 89 (74-99) mg/dL Calcium 8.9 (8.4-10.2) mg/dL Magnesium 1.2 L (1.6-2.3) mg/dL Total Bilirubin 0.7 (0.2-1.3) mg/dL AST 100 H (17-59) U/L ALT 42 (4-49) U/L Alkaline Phosphatase 128 H (38-126) U/L Total Protein 8.3 H (6.3-8.2) g/dL Albumin 4.7 (3.5-5.0) g/dL Serum Alcohol 396 H* mg/dL Disposition Clinical Impression: At risk for readmission to hospital, Hypomagnesemia Disposition: ADMITTED IP TO THIS HOSP Condition: Stable Is patient prescribed a controlled substance at d/c from ED?: No Referrals: Mateusz Gloria DO [Primary Care Provider] - 1-2 days Time of Disposition: 21:02
[2024-10-10] MEDS: SODIUM CHLORIDE 0.9% 1,000 ML IV SCH (21:09)
[2024-10-10] MEDS: SODIUM CHLORIDE 0.9% 500 ML 500 ML IV ONE (21:12)
[2024-10-10] MEDS: MAGNESIUM SULFATE-D5W PMX 1 GM in DEXTROSE/WATER 1 100ML.BAG IVPB SCH (21:14)
--- NOTE | 2024-10-10 22:43 | P.HPIM ---
History of Present Illness H&P Date: 10/10/24 History of present illness; 59-year-old male with COPD, GERD, seizure disorder, and history of syncope presents with alcohol intoxication. Patient reports he would like to detox from alcohol. Reports he is a daily drinker and drinks approximately a fifth of liquor daily. Reports he just drank prior to arrival to the ED. States he has gone to rehab many times in the past. Reports he is not ready to go back to rehab, but would instead like to start attending AA meetings. Reports his PCP has been on him to quit alcohol. Denies headache, chest pain, shortness of breath, palpitations, nausea, vomiting, diarrhea, constipation, lower extremity swelling, fever. REVIEW OF SYSTEMS: As stated above in HPI. The rest of the 14-point review of systems is negative. PHYSICAL EXAMINATION: GENERAL: The patient is alert and oriented x3, not in any acute distress. Well developed, well nourished. HEENT: Pupils are round and equally reacting to light. EOMI. No scleral icterus. No conjunctival pallor. Normocephalic, atraumatic. CARDIOVASCULAR: S1 and S2 present. No murmurs, rubs, or gallops. PULMONARY: Chest is clear to auscultation b/l, no wheezing or crackles. ABDOMEN: Soft, nontender, nondistended, normoactive bowel sounds. No palpable organomegaly. MUSCULOSKELETAL: No joint swelling or deformity. EXTREMITIES: No cyanosis, clubbing, or pedal edema. NEUROLOGICAL: Gross neurological examination did not reveal any focal deficits. SKIN: No rashes. Assessment:59-year-old male with COPD, GERD, seizure disorder, and history of syncope presents with alcohol intoxication. Patient mated to the internal medicine service with a likely stay of less than 2 midnights. Plan: #Acute severe alcohol intoxication in severe alcohol use disorder -Serum alcohol 396, AST 100, and ALT 42 -CIWA protocol, Ativan 1 mg IV every hour for CIWA 10-15, Ativan 1 mg IV every 2 hours for CIWA 8-9 and Ativan 2 mg IV every 10 minutes for CIWA 16 or greater -Seizure precautions -Continue home thiamine and start multivitamin #Hyponatremia -Sodium 125 -Continue NS 130 cc/h -Continue to monitor BMP #Macrocytic anemia: Likely secondary to chronic alcohol use -MCV 103.1 -B12 699 and folate 9.3 on 09/15/2024 -Continue to monitor Chronic conditions: #COPD -Currently on room air -Continue home breathing treatments #GERD -Protonix 40 mg p.o. daily F: NS 130cc/h E: Thiamine and multivitamin N: Regular diet DVT ppx: Lovenox 40 SQ daily GI ppx: Protonix 40 mg p.o. daily Dispo: As stated above assessment. Delmar Carrington MD PGY-1 FM Dictation was produced using [employer] dictation software. please excuse any grammatical, word or spelling errors. Past Medical History Past Medical History: COPD, GERD/Reflux, Pneumonia, Seizure Disorder, Syncope Additional Past Medical History / Comment(s): Neuropathy feet and arms in base of neck. Severe ETOH abuse. Hx alcohol withdrawal seizures/DTs, 1 yr ago, aspiration pneumonia, encephalopathy d/t alcohol, thrombocytopenia, chronic SOB. 3 years since only seizure. looking at disc issues will be sent to specialist. healing wound to rt great toe where it was amputated,dressed.completed abx(cefazolin) via torres to rt chest, visiting nurse once a week now. pt is a fair historian History of Any Multi-Drug Resistant Organisms: None Reported Past Surgical History: Ear Surgery, Tonsillectomy Additional Past Surgical History / Comment(s): Bilateral mastoidectomies, sinus surgery and vocal cord scraping, cataract surgery, blocks for migraines. i & d ghazala elbows , torres, amputation of rt grt toe., torres removed 02/04/24 Past Anesthesia/Blood Transfusion Reactions: No Reported Reaction Past Psychological History: Anxiety, Bipolar, Depression Smoking Status: Current every day smoker Past Alcohol Use History: Abuse, Daily, Heavy Past Drug Use History: Marijuana - Past Family History Father Family Medical History: Cancer Mother Family Medical History: Hyperlipidemia Brother(s) Additional Family Medical History / Comment(s): Bipolar, schizoprenia. Medications and Allergies Home Medications Medication Instructions Recorded Confirmed Type Albuterol Sulfate [Proair Hfa] 2 puff INHALATION RT-Q4H PRN 08/16/21 02/08/24 History busPIRone HCL 5 mg PO BID 08/16/21 02/08/24 History traZODone HCL 50 mg PO HS PRN 08/16/21 02/08/24 History Acetaminophen Tab [Tylenol] 650 mg PO Q6HR PRN tab 12/01/21 02/08/24 Rx Fluticasone/Umeclidin/Vilanter 1 puff INHALATION RT-DAILY 02/01/24 02/08/24 History [Trelegy Ellipta 100-62.5-25] Ammonium Lactate Lotion 1 applic TOPICAL BID PRN 02/08/24 02/08/24 History [Lac-Hydrin 12% Lotion] cefuroxime axetiL [Ceftin] 500 mg PO BID 02/08/24 02/08/24 History Diltiazem Cd [Cardizem CD] 120 mg PO DAILY #30 cap 02/13/24 Rx Ferrous Sulfate [Iron (65 MG 325 mg PO BID-W/MEALS #30 tab 02/13/24 Rx Elemental)] Folic Acid 1 mg PO DAILY #30 tab 02/13/24 Rx Magnesium Oxide [Mag-Ox] 400 mg PO BID #60 tab 02/13/24 Rx Sodium Chloride Tab 1 gm PO DAILY #2 tablet 02/13/24 Rx Thiamine [Vitamin B-1] 100 mg PO DAILY #30 tab 02/13/24 Rx Allergies Allergy/AdvReac Type Severity Reaction Status Date / Time No Known Allergies Allergy Verified 10/10/24 19:05 Physical Exam Vitals: Vital Signs Temp Pulse Resp BP Pulse Ox 10/10/24 21:06 97.7 F 63 18 126/88 92 L 10/10/24 19:06 97.8 F 81 18 129/82 97 Intake and Output 10/10/24 10/10/24 10/10/24 06:59 14:59 22:59 Other: Weight 70.307 kg Results CBC & Chem 7: 10/10/24 19:49 10/10/24 19:49 Labs: Abnormal Lab Results - Last 24 Hours (Table) 10/10/24 10/10/24 Range/Units 19:49 19:49 RBC 3.46 L (4.30-5.90) m/uL Hgb 12.3 L (13.0-17.5) gm/dL Hct 35.7 L (39.0-53.0) % MCV 103.1 H (80.0-100.0) fL MCH 35.5 H (25.0-35.0) pg Sodium 125 L (137-145) mmol/L Chloride 92 L (98-107) mmol/L Carbon Dioxide 20 L (22-30) mmol/L BUN 5 L (9-20) mg/dL Magnesium 1.2 L (1.6-2.3) mg/dL AST 100 H (17-59) U/L Alkaline Phosphatase 128 H (38-126) U/L Total Protein 8.3 H (6.3-8.2) g/dL Serum Alcohol 396 H* mg/dL Assessment and Plan Assessment: I have seen and evaluated the patient today. I Discussed the case with the resident and agree with the resident's findings I edited the assessment and plan as necessary as documented in the resident's note.
[2024-10-11] MEDS: LORazepam 2 MG/ML INJ IV PRN ×2 (01:09→13:26)
[2024-10-11] MEDS: SODIUM CHLORIDE 0.9% 1,000 ML IV SCH (06:11)
[2024-10-11] MEDS: PANTOPRAZOLE 40 MG TABLET PO SCH (06:14)
[2024-10-11] MEDS: FOLIC ACID 1 MG TAB PO SCH (08:37)
[2024-10-11] MEDS: THIAMINE 100 MG TAB PO SCH (08:37)
[2024-10-11 09:02] VITALS: BMI 22.2
[2024-10-11 10:08] LABS: African American GFR (CKD) >90 (>60 ml/min/1.73 sqM); Anion Gap 12 mmol/L; Blood Urea Nitrogen 3 mg/dL (9-20); Calcium 8.6 mg/dL (8.4-10.2); Carbon Dioxide 22 mmol/L (22-30); Chloride 97 mmol/L (98-107); Glucose 162 mg/dL (74-99); Non-African American GFR(CKD) >90 (>60 ml/min/1.73 sqM); Sodium 131 mmol/L (137-145)
[2024-10-11 10:18] LABS: Potassium 5.7 mmol/L (3.5-5.1)
[2024-10-11] MEDS: MAGNESIUM SULFATE-D5W PMX 1 GM in DEXTROSE/WATER 1 100ML.BAG IVPB SCH (10:37)
--- NOTE | 2024-10-11 14:29 | P.PN ---
Subjective Progress Note Date: 10/11/24 Subjective: Patient seen and examined at the bedside. No acute events overnight. Patient denies audio, visual or tactile hallucination. Denies nausea, vomiting, fever, chills and abdominal pain. All Systems reviewed and pertinent positives and negatives noted in HPI, all other symptoms are negative Objective: Vital signs reviewed. GENERAL: The patient is alert and oriented x3, not in any acute distress. Well developed, well nourished. HEENT: Pupils are round and equally reacting to light. EOMI. No scleral icterus. No conjunctival pallor. Normocephalic, atraumatic. CARDIOVASCULAR: S1 and S2 present. No murmurs, rubs, or gallops. PULMONARY: Chest is clear to auscultation b/l, no wheezing or crackles. ABDOMEN: Soft, nontender, nondistended, normoactive bowel sounds. No palpable organomegaly. MUSCULOSKELETAL: No joint swelling or deformity. EXTREMITIES: No cyanosis, clubbing, or pedal edema. NEUROLOGICAL: Gross neurological examination did not reveal any focal deficits. SKIN: No rashes. Data reviewed today: Labs: Sodium 131, potassium 5.7, chloride 97, bicarb 22, BUN 3, creatinine 0.61, glucose 162, magnesium 1.3 Images: No new imaging Assessment and Plan: 59-year-old male with COPD, GERD, seizure disorder, and history of syncope presents with alcohol intoxication. #Acute severe alcohol intoxication in severe alcohol use disorder Serum alcohol 396, AST 100, and ALT 42 CIWA protocol, Ativan 1 mg IV every hour for CIWA 10-15, Ativan 1 mg IV every 2 hours for CIWA 8-9 and Ativan 2 mg IV every 10 minutes for CIWA 16 or greater Seizure precautions Order thiamine 100 mg p.o. daily and folate 1 mg p.o. daily Order Librium 20 mg p.o. three times daily Discussed alcohol cessation management Hypovolemic hyponatremia Sodium improved to 131 Monitor for the rate of correction which is 8 to 12 mEq/L within 24 hours Decrease IV normal saline to 75 cc/h Continue to monitor BMP every 6 hour #Hyperkalemia, secondary to hemolyzed sample Potassium level 5.7 Continue monitor BMP #Hypomagnesemia Magnesium 1.3 Order IV mag 4 g Continue monitor magnesium level Repeat magnesium in the afternoon #Macrocytic anemia: Likely secondary to chronic alcohol use MCV 103.1 B12 699 and folate 9.3 on 09/15/2024 Continue to monitor Chronic conditions: #COPD Currently on room air Continue home breathing treatments #GERD Protonix 40 mg p.o. daily F: NS 75 cc/h E: Thiamine and multivitamin N: Regular diet DVT ppx: Lovenox 40 SQ daily GI ppx: Protonix 40 mg p.o. daily Code Status: Full code Anticipated discharge place: Pending clinical course Anticipated discharge date: Pending clinical course I saw and evaluated the patient during the brenner and critical portions of this encounter, and discussed the case in detail with the resident author of this note, I agree with the Assessment and Plan, and my changes, if any, are highlighted in blue. Objective - Vital Signs Vital signs: Vital Signs Temp 98.4 F 10/11/24 13:40 Pulse 110 H 10/11/24 13:40 Resp 18 10/11/24 13:40 BP 147/85 10/11/24 13:40 Pulse Ox 94 L 10/11/24 13:40 FiO2 Intake & Output 10/10/24 10/11/24 10/11/24 18:59 06:59 18:59 Intake Total 474 360 Output Total 1200 950 Balance -726 -590 Weight 70.307 kg 70.307 kg Intake: Oral 474 360 Output: Urine 1200 950 Other: # Voids 1 - Labs CBC & Chem 7: 10/10/24 19:49 10/11/24 15:22 Labs: Abnormal Lab Results - Last 24 Hours (Table) 10/10/24 10/10/24 10/11/24 Range/Units 19:49 19:49 09:19 RBC 3.46 L (4.30-5.90) m/uL Hgb 12.3 L (13.0-17.5) gm/dL Hct 35.7 L (39.0-53.0) % MCV 103.1 H (80.0-100.0) fL MCH 35.5 H (25.0-35.0) pg Sodium 125 L 131 L (137-145) mmol/L Potassium 5.7 H (3.5-5.1) mmol/L Chloride 92 L 97 L (98-107) mmol/L Carbon Dioxide 20 L (22-30) mmol/L BUN 5 L 3 L (9-20) mg/dL Creatinine 0.61 L (0.66-1.25) mg/dL Glucose 162 H (74-99) mg/dL Magnesium 1.2 L (1.6-2.3) mg/dL AST 100 H (17-59) U/L Alkaline Phosphatase 128 H (38-126) U/L Total Protein 8.3 H (6.3-8.2) g/dL Serum Alcohol 396 H* mg/dL 10/11/24 Range/Units 09:19 RBC (4.30-5.90) m/uL Hgb (13.0-17.5) gm/dL Hct (39.0-53.0) % MCV (80.0-100.0) fL MCH (25.0-35.0) pg Sodium (137-145) mmol/L Potassium (3.5-5.1) mmol/L Chloride (98-107) mmol/L Carbon Dioxide (22-30) mmol/L BUN (9-20) mg/dL Creatinine (0.66-1.25) mg/dL Glucose (74-99) mg/dL Magnesium 1.3 L (1.6-2.3) mg/dL AST (17-59) U/L Alkaline Phosphatase (38-126) U/L Total Protein (6.3-8.2) g/dL Serum Alcohol mg/dL
[2024-10-11 15:58] LABS: African American GFR (CKD) >90 (>60 ml/min/1.73 sqM); Anion Gap 5 mmol/L; Blood Urea Nitrogen 4 mg/dL (9-20); Calcium 8.9 mg/dL (8.4-10.2); Carbon Dioxide 26 mmol/L (22-30); Chloride 99 mmol/L (98-107); Glucose 130 mg/dL (74-99); Non-African American GFR(CKD) >90 (>60 ml/min/1.73 sqM); Potassium 4.4 mmol/L (3.5-5.1); Sodium 130 mmol/L (137-145)
[2024-10-11 20:37] LABS: African American GFR (CKD) >90 (>60 ml/min/1.73 sqM); Anion Gap 4 mmol/L; Blood Urea Nitrogen 5 mg/dL (9-20); Carbon Dioxide 28 mmol/L (22-30); Chloride 97 mmol/L (98-107); Glucose 116 mg/dL (74-99); Non-African American GFR(CKD) >90 (>60 ml/min/1.73 sqM); Potassium 4.4 mmol/L (3.5-5.1); Sodium 129 mmol/L (137-145)
[2024-10-12 03:12] LABS: African American GFR (CKD) >90 (>60 ml/min/1.73 sqM); Anion Gap 4 mmol/L; Blood Urea Nitrogen 6 mg/dL (9-20); Calcium 8.9 mg/dL (8.4-10.2); Carbon Dioxide 25 mmol/L (22-30); Chloride 99 mmol/L (98-107); Glucose 97 mg/dL (74-99); Non-African American GFR(CKD) >90 (>60 ml/min/1.73 sqM); Potassium 3.7 mmol/L (3.5-5.1); Sodium 128 mmol/L (137-145)
[2024-10-12] MEDS: LORazepam 2 MG/ML INJ IV PRN (09:01)
[2024-10-12 10:44] LABS: African American GFR (CKD) >90 (>60 ml/min/1.73 sqM); Anion Gap 9 mmol/L; Blood Urea Nitrogen 6 mg/dL (9-20); Calcium 9.3 mg/dL (8.4-10.2); Carbon Dioxide 25 mmol/L (22-30); Chloride 96 mmol/L (98-107); Glucose 138 mg/dL (74-99); Non-African American GFR(CKD) >90 (>60 ml/min/1.73 sqM); Potassium 3.9 mmol/L (3.5-5.1); Sodium 130 mmol/L (137-145)
--- NOTE | 2024-10-12 11:01 | P.PN ---
Subjective Progress Note Date: 10/12/24 Subjective: Patient seen and examined at the bedside. No acute events overnight. Patient denies audio, visual or tactile hallucination. Denies nausea, vomiting, fever, chills and abdominal pain. All Systems reviewed and pertinent positives and negatives noted in HPI, all other symptoms are negative Objective: Gen: In NAD, non-toxic HEENT: normocephalic, atraumatic, hearing acuity is intant, mucous membranes moist CVS: perfusing all extremities well, no pitting edema, Respiratory: symmetric chest expansion, no accessory muscle use, GI: soft, NTTP, ND, : no suprapubic tenderness, no CVA tenderness MSK/Derm: no rashes, cyanosis Neuro: CN II-XII intact, no motor weakness, Psych: cooperative, euthymic mood, judgment and insight is intact Assessment and Plan: 59-year-old male with COPD, GERD, seizure disorder, and history of syncope presents with alcohol intoxication. #Acute severe alcohol intoxication in severe alcohol use disorder Serum alcohol 396, AST 100, and ALT 42 CIWA protocol, Ativan 1 mg IV every hour for CIWA 10-15, Ativan 1 mg IV every 2 hours for CIWA 8-9 and Ativan 2 mg IV every 10 minutes for CIWA 16 or greater Seizure precautions Order thiamine 100 mg p.o. daily and folate 1 mg p.o. daily Order Librium 20 mg p.o. three times daily Discussed alcohol cessation management Hypovolemic hyponatremia Sodium improved to 131 Monitor for the rate of correction which is 8 to 12 mEq/L within 24 hours Decrease IV normal saline to 75 cc/h Continue to monitor BMP every 6 hour #Hyperkalemia, secondary to hemolyzed sample Potassium level 5.7 Continue monitor BMP #Hypomagnesemia Magnesium 1.3 Order IV mag 4 g Continue monitor magnesium level Repeat magnesium in the afternoon #Macrocytic anemia: Likely secondary to chronic alcohol use MCV 103.1 B12 699 and folate 9.3 on 09/15/2024 Continue to monitor Chronic conditions: #COPD Currently on room air Continue home breathing treatments #GERD Protonix 40 mg p.o. daily F: NS 75 cc/h E: Thiamine and multivitamin N: Regular diet DVT ppx: Lovenox 40 SQ daily GI ppx: Protonix 40 mg p.o. daily Code Status: Full code Anticipated discharge place: Pending clinical course Anticipated discharge date: Pending clinical course Objective - Vital Signs Vital signs: Vital Signs Temp 98.9 F 10/12/24 07:00 Pulse 64 10/12/24 10:37 Resp 14 10/12/24 10:37 BP 154/83 10/12/24 07:00 Pulse Ox 96 10/12/24 07:00 FiO2 Intake & Output 10/11/24 10/12/24 10/12/24 18:59 06:59 18:59 Intake Total 360 900 Output Total 1425 Balance -1065 900 Weight 70.307 kg Intake: Intake, IV Titration 900 Amount Sodium Chloride 0.9% 1, 900 000 ml @ 75 mls/hr IV . [id number] HERIBERTO Rx#:[id number] Oral 360 Output: Urine 1425 Other: # Voids 3 - Labs CBC & Chem 7: 10/10/24 19:49 10/12/24 08:54 Labs: Abnormal Lab Results - Last 24 Hours (Table) 10/11/24 10/11/24 10/12/24 Range/Units 15:22 20:09 02:35 Sodium 130 L 129 L 128 L (137-145) mmol/L Chloride 97 L (98-107) mmol/L BUN 4 L 5 L 6 L (9-20) mg/dL Creatinine 0.59 L (0.66-1.25) mg/dL Glucose 130 H 116 H (74-99) mg/dL 10/12/24 Range/Units 08:54 Sodium 130 L (137-145) mmol/L Chloride 96 L (98-107) mmol/L BUN 6 L (9-20) mg/dL Creatinine 0.64 L (0.66-1.25) mg/dL Glucose 138 H (74-99) mg/dL
[2024-10-13 07:22] VITALS: PULSE 100; RESP 16
[2024-10-13] MEDS: ALBUTEROL HFA INHALER INHALATION PRN (08:21)
[2024-10-13 08:44] LABS: Basophils # (A) 0.03 X 10*3/uL (0.00-0.10); Basophils % (A) 0.3 %; Eosinophils # (A) 0.07 X 10*3/uL (0.04-0.35); Eosinophils % (A) 0.8 %; HCT 33.8 % (39.6-50.0); HGB 11.5 g/dL (13.0-17.0); Lymphocytes # (A) 1.69 X 10*3/uL (0.90-5.00); Lymphocytes % (A) 18.8 %; MCH 35.1 pg (27.0-32.0); Mean Platelet Volume 10.1 FL (9.5-12.2); Monocytes # (A) 0.75 X 10*3/uL (0.20-1.00); Monocytes % (A) 8.4 %; NRBC Per 100 WBC 0 X 10*3/uL (0.00-0.01); Neutrophils % (A) 71.4 %; Platelet Count 222 X 10*3/uL (140-440); RBC 3.28 X 10*6/uL (4.40-5.60); RDW 12.7 % (11.5-14.5); WBC 8.97 X 10*3/uL (4.50-10.00)
[2024-10-13 08:52] LABS: BUN/Creat Ratio 10.14 Ratio (12.00-20.00); Blood Urea Nitrogen 7.1 mg/dL (9.0-27.0); Calcium 9.2 mg/dL (8.7-10.3); Carbon Dioxide 22.6 mmol/L (21.6-31.8); Chloride 94 mmol/L (96-109); Glucose 115 mg/dL (70-110); Magnesium 1.4 mg/dL (1.5-2.4); Potassium 3.9 mmol/L (3.5-5.5); Sodium 129 mmol/L (135-145)
[2024-10-13] MEDS: MAGNESIUM SULFATE-D5W PMX 1 GM in DEXTROSE/WATER 1 100ML.BAG IVPB SCH (11:04)
[2024-10-13 14:55] VITALS: BP 108/76; TEMP 97.8
--- NOTE | 2024-10-13 19:13 | P.DS ---
Providers Date of admission: 10/10/24 20:59 Expected date of discharge: 10/13/24 Attending physician: Graciela Spain MD Primary care physician: Mateusz Gloria [facility] Course: #Acute severe alcohol intoxication in severe alcohol use disorder Hypovolemic hyponatremia #Hyperkalemia, secondary to hemolyzed sample #Hypomagnesemia #Macrocytic anemia: Likely secondary to chronic alcohol use #COPD #GERD Hospital course: 59-year-old man with COPD, GERD, seizure disorder, history of syncope presented for alcohol intoxication alcohol withdrawal. Patient underwent alcohol detoxification with Librium 3 times daily as well as Ativan as needed and was placed on thiamine, folate, multivitamin. On the day of discharge, was no longer exhibiting withdrawal symptoms. Was advised on several resources for cessation including alcoholic Anonymous, [facility], etc. and has a good plan to quit going forward. He was also provided with a prescription for naltrexone 50 mg daily for 30 days. I spent 32 minutes coordinating this discharge Objective: Gen: In NAD, non-toxic HEENT: normocephalic, atraumatic, hearing acuity is intant, mucous membranes moist CVS: perfusing all extremities well, no pitting edema, Respiratory: symmetric chest expansion, no accessory muscle use, GI: soft, NTTP, ND, : no suprapubic tenderness, no CVA tenderness MSK/Derm: no rashes, cyanosis Neuro: CN II-XII intact, no motor weakness, Psych: cooperative, euthymic mood, judgment and insight is intact Patient Condition at Discharge: Stable Plan - Discharge Summary Discharge Rx Participant: No New Discharge Prescriptions: New Naltrexone HCl [Revia] 50 mg PO DAILY #30 tablet Continue busPIRone HCL 5 mg PO BID Albuterol Sulfate [Proair Hfa] 2 puff INHALATION RT-Q4H PRN PRN Reason: Shortness Of Breath Acetaminophen Tab [Tylenol] 650 mg PO Q6HR PRN tab PRN Reason: Fever and/ or Mild Pain Diltiazem Cd [Cardizem CD] 120 mg PO DAILY #30 cap Thiamine [Vitamin B-1] 100 mg PO DAILY #30 tab Sodium Chloride Tab 1 gm PO DAILY #2 tablet traZODone HCL 50 mg PO HS PRN PRN Reason: Insomnia Fluticasone/Umeclidin/Vilanter [Trelegy Ellipta 100-62.5-25] 1 puff INHALATION RT-DAILY Ammonium Lactate Lotion [Lac-Hydrin 12% Lotion] 1 applic TOPICAL BID PRN PRN Reason: DRYNESS Folic Acid 1 mg PO DAILY #30 tab Ferrous Sulfate [Iron (65 MG Elemental)] 325 mg PO BID-W/MEALS #30 tab Magnesium Oxide [Mag-Ox] 400 mg PO BID #60 tab Discontinued cefuroxime axetiL [Ceftin] 500 mg PO BID Discharge Medication List Albuterol Sulfate [Proair Hfa] 2 puff INHALATION RT-Q4H PRN 08/16/21 [History] busPIRone HCL 5 mg PO BID 08/16/21 [History] traZODone HCL 50 mg PO HS PRN 08/16/21 [History] Acetaminophen Tab [Tylenol] 650 mg PO Q6HR PRN tab 12/01/21 [Rx] Fluticasone/Umeclidin/Vilanter [Trelegy Ellipta 100-62.5-25] 1 puff INHALATION RT-DAILY 02/01/24 [History] Ammonium Lactate Lotion [Lac-Hydrin 12% Lotion] 1 applic TOPICAL BID PRN 02/08/24 [History] Diltiazem Cd [Cardizem CD] 120 mg PO DAILY #30 cap 02/13/24 [Rx] Ferrous Sulfate [Iron (65 MG Elemental)] 325 mg PO BID-W/MEALS #30 tab 02/13/24 [Rx] Folic Acid 1 mg PO DAILY #30 tab 02/13/24 [Rx] Magnesium Oxide [Mag-Ox] 400 mg PO BID #60 tab 02/13/24 [Rx] Sodium Chloride Tab 1 gm PO DAILY #2 tablet 02/13/24 [Rx] Thiamine [Vitamin B-1] 100 mg PO DAILY #30 tab 02/13/24 [Rx] Naltrexone HCl [Revia] 50 mg PO DAILY #30 tablet 10/13/24 [Rx] Follow up Appointment(s)/Referral(s): Mateusz Gloria DO [Primary Care Provider] - 1-2 days Discharge/Stand Alone Forms: AA Meetings [address] [facility] [address] [facility] - [facility], AA Meetings [place] [facility], Who Do I Call?, Community Resources, Outpatient Counseling, In Substance Abuse Facilities Discharge Disposition: HOME SELF-CARE
== END 2024-10-13 17:26 | disposition home or self-care (01) | DRG 897 ==
LOC: EC 18:22 → 6NMEDSUR 20:58 → OBSVTOIN 20:59 → 6NMEDSUR 21:34
PROVIDERS: ADMIT Internal Medicine; ATTEND Internal Medicine
PROC: HZ2ZZZZ Detoxification Services for Substance Abuse Treatment (ICD-10-PCS; principal; 2024-10-10)
DX: F10.229 Alcohol dependence with intoxication, unspecified (principal); E87.1 Hypo-osmolality and hyponatremia; E83.42 Hypomagnesemia; G40.909 Epilepsy, unspecified, not intractable, without status epilepticus; F31.9 Bipolar disorder, unspecified; F41.9 Anxiety disorder, unspecified; F10.239 Alcohol dependence with withdrawal, unspecified; E86.1 Hypovolemia; E87.5 Hyperkalemia; D53.9 Nutritional anemia, unspecified; J44.9 Chronic obstructive pulmonary disease, unspecified; K21.9 Gastro-esophageal reflux disease without esophagitis; Y90.8 Blood alcohol level of 240 mg/100 ml or more; Z79.899 Other long term (current) drug therapy
CPT/HCPCS: 36415; 80048; 80053; 80320; 83735; 85025; 94640; 96365; 99285

== ENCOUNTER 2025-01-28 08:44 | Observation (INO) | payer MEDICARE ==
--- NOTE | 2025-01-28 09:11 | ED ---
General Adult HPI - General Chief complaint: Abdominal Pain Stated complaint: Abd pain, chest pain Time Seen by Provider: 01/28/25 08:51 Source: patient, RN notes reviewed Mode of arrival: ambulatory Limitations: no limitations - History of Present Illness Initial comments: 59-year-old male presents to the emergency department for evaluation of chest an d abdominal pain. He states that this started around 4 days ago. He notes that it is now constant. It is in his upper abdomen bilaterally and goes into his chest. He does admit to some shortness of breath. Admits to nausea without vomiting. Denies any fever. He reports that his urinary and bowel habits have been normal. He admits to daily alcohol consumption. He reports that he drinks about a pint of vodka daily. He reports that his last drink was 4 to 6 hours ago. - Related Data Home Medications Medication Instructions Recorded Confirmed Albuterol Sulfate [Proair Hfa] 2 puff INHALATION RT-Q4H PRN 08/16/21 01/28/25 traZODone HCL 50 mg PO HS 08/16/21 01/28/25 Ferrous Sulfate [Iron (65 MG 325 mg PO DAILY 01/28/25 01/28/25 Elemental)] Folic Acid 0.8 mg PO DAILY 01/28/25 01/28/25 Gabapentin [Neurontin] 600 mg PO TID 01/28/25 01/28/25 Magnesium Oxide [Magnesium] 500 mg PO DAILY 01/28/25 01/28/25 Midodrine [ProAmatine] 5 mg PO BID 01/28/25 01/28/25 Multivitamin/Iron/Folic Acid 1 tab PO DAILY 01/28/25 01/28/25 [Centrum Adults Tablet] Omeprazole [PriLOSEC] 20 mg PO BID 01/28/25 01/28/25 Zinc Gluconate [Zinc] 50 mg PO DAILY 01/28/25 01/28/25 busPIRone HCl [Buspar] 10 mg PO BID 01/28/25 01/28/25 Previous Rx's Medication Instructions Recorded Acetaminophen Tab [Tylenol] 650 mg PO Q6HR PRN tab 12/01/21 Allergies Allergy/AdvReac Type Severity Reaction Status Date / Time No Known Allergies Allergy Verified 01/28/25 09:45 Review of Systems ROS Statement: Those systems with pertinent positive or pertinent negative responses have been documented in the HPI. ROS Other: All systems not noted in ROS Statement are negative. Past Medical History Past Medical History: COPD, GERD/Reflux, Pneumonia, Seizure Disorder, Syncope Additional Past Medical History / Comment(s): Neuropathy feet and arms in base of neck. Severe ETOH abuse. Hx alcohol withdrawal seizures/DTs, 1 yr ago, aspiration pneumonia, encephalopathy d/t alcohol, thrombocytopenia, chronic SOB. 3 years since only seizure. looking at disc issues will be sent to specialist. healing wound to rt great toe where it was amputated,dressed.completed abx (cefazolin) via torres to rt chest, visiting nurse once a week now. pt is a fair historian History of Any Multi-Drug Resistant Organisms: None Reported Past Surgical History: Ear Surgery, Tonsillectomy Additional Past Surgical History / Comment(s): Bilateral mastoidectomies, sinus surgery and vocal cord scraping, cataract surgery, blocks for migraines. i & d ghazala elbows , torres, amputation of rt grt toe., torres removed 02/04/24 Past Anesthesia/Blood Transfusion Reactions: No Reported Reaction Past Psychological History: Anxiety, Bipolar, Depression Smoking Status: Current every day smoker Past Alcohol Use History: Abuse, Daily, Heavy Past Drug Use History: Marijuana - Past Family History Father Family Medical History: Cancer Mother Family Medical History: Hyperlipidemia Brother(s) Additional Family Medical History / Comment(s): Bipolar, schizoprenia. General Exam Limitations: no limitations General appearance: alert, in no apparent distress, appears intoxicated Head exam: Present: atraumatic, normocephalic, normal inspection Eye exam: Present: normal appearance, PERRL, EOMI. Absent: scleral icterus, conjunctival injection, periorbital swelling ENT exam: Present: normal exam, mucous membranes moist Neck exam: Present: normal inspection. Absent: tenderness, meningismus, lymphadenopathy Respiratory exam: Present: wheezes. Absent: respiratory distress, rales, rhonchi, stridor Cardiovascular Exam: Present: regular rate, normal rhythm, normal heart sounds. Absent: systolic murmur, diastolic murmur, rubs, gallop, clicks GI/Abdominal exam: Present: soft, tenderness (epigastric and LLQ ), normal bowel sounds. Absent: distended, guarding, rebound, rigid Extremities exam: Present: normal inspection, full ROM, normal capillary refill. Absent: tenderness, pedal edema, joint swelling, calf tenderness Neurological exam: Present: alert, oriented X3 Psychiatric exam: Present: normal affect, normal mood Skin exam: Present: warm, dry, intact, normal color. Absent: rash Course Vital Signs 01/28/25 01/28/25 01/28/25 08:48 10:15 12:00 Temperature 97.6 F Pulse Rate 111 H 57 L 100 Respiratory 20 18 18 Rate Blood Pressure 116/82 134/94 121/67 O2 Sat by Pulse 95 91 L 92 L Oximetry 01/28/25 01/28/25 01/28/25 13:00 13:50 13:52 Temperature 98.7 F Pulse Rate 70 62 69 Respiratory 18 18 Rate Blood Pressure 130/86 125/88 O2 Sat by Pulse 94 L 99 Oximetry 01/28/25 01/28/25 01/28/25 13:58 15:00 16:27 Temperature Pulse Rate 68 68 71 Respiratory 20 18 Rate Blood Pressure 141/85 137/95 O2 Sat by Pulse 93 L 92 L Oximetry Medical Decision Making - Medical Decision Making Was pt. sent in by a medical professional or institution (, PA, PEER SPECIALIST, urgent care, hospital, or correction...) When possible be specific @ -No Did you speak to anyone other than the patient for history (EMS, parent, family, police, friend...)? What history was obtained from this source @ -No Did you review nursing and triage notes (agree or disagree)? Why? @ -I reviewed and agree with nursing and triage notes Were old charts reviewed (outside hosp., previous admission, EMS record, old EKG, old radiological studies, urgent care reports/EKG's, correction records)? Report findings @ -No old charts were reviewed Differential Diagnosis (chest pain, altered mental status, abdominal pain women, abdominal pain men, vaginal bleeding, weakness, fever, dyspnea, syncope, headache, dizziness, GI bleed, back pain, seizure, CVA, palpatations, mental health, musculoskeletal)? @ -Differential Abdominal Pain Men: Appendicitis, cholecystitis, diverticulosis, ischemic bowel, pancreatitis, hepatitis, UTI, gastroenteritis, AAA, incarcerated hernia, bowel obstruction, constipation, inflammatory bowel, hepatitis, peptic ulcer disease, splenic infa rction, perforated viscus, testicular torsion, this is not meant to be an all- inclusive list EKG interpreted by me (3pts min.). @ -EKG at 903 shows sinus rhythm rate 87, MO 189, QRS 154, QTQTc 4054 50 X-rays interpreted by me (1pt min.). @ -Chest x-ray shows no acute process CT interpreted by me (1pt min.). @ -None done U/S interpreted by me (1pt. min.). @ -None done What testing was considered but not performed or refused? (CT, X-rays, U/S, labs)? Why? @ -None What meds were considered but not given or refused? Why? @ -None Did you discuss the management of the patient with other professionals (professionals i.e. , PA, PEER SPECIALIST, lab, RT, psych nurse, social service agency director, admiralty lawyer, teacher, branch lending officer, case advocate)? Give summary @ -Case discussed with Dr. Vigil who is accepting of the admission Was smoking cessation discussed for >3mins.? @ -No Was critical care preformed (if so, how long)? @ -No Were there social determinants of health that impacted care today? How? (Homelessness, low income, unemployed, alcoholism, drug addiction, transportation, low edu. Level, literacy, decrease access to med. care, usp, rehab)? @ -No Was there de-escalation of care discussed even if they declined (Discuss DNR or withdrawal of care, Hospice)? DNR status @ -No What co-morbidities impacted this encounter? (DM, HTN, Smoking, COPD, CAD, Cancer, CVA, ARF, Chemo, Hep., AIDS, mental health diagnosis, sleep apnea, morbid obesity)? @ -None Was patient admitted / discharged? Hospital course, mention meds given and route, prescriptions, significant lab abnormalities, going to OR and other pertinent info. @ -Admitted patient presented to the emergency department for evaluation of chest and abdominal pain. Laboratory studies were performed. Chest x-ray shows no acute processLaboratory studies show no significant leukocytosis, hemoglobin 14.1; normal coagulation studies; CMP shows hyponatremia with a sodium 128, chloride 88 negative troponin initially. Patient had elevated serum alcohol at 265. Patient will be admitted for chest pain, hyponatremia, alcohol withdrawal. He is understanding agreeable this plan. Case discussed with Dr. Vigil who is accepting of the admission. Case discussed with Dr. Lassiter Undiagnosed new problem with uncertain prognosis? @ -No Drug Therapy requiring intensive monitoring for toxicity (Heparin, Nitro, Insulin, Cardizem)? @ -No Were any procedures done? @ -No Diagnosis/symptom? @ -Hyponatremia, alcohol intoxication, chest pain Acute, or Chronic, or Acute on Chronic? @ -Acute Uncomplicated (without systemic symptoms) or Complicated (systemic symptoms)? @ -Acute uncomplicated Side effects of treatment? @ -No Exacerbation, Progression, or Severe Exacerbation? @ -No Poses a threat to life or bodily function? How? (Chest pain, [place], [place], pneumonia, PE, COPD, DKA, ARF, appy, cholecystitis, CVA, Diverticulitis, Homicidal, Suicidal, threat to staff... and all critical care pts) @ -No - Lab Data Result diagrams: 01/28/25 09:20 01/28/25 09:20 Lab Results 01/28/25 01/28/25 01/28/25 Range/Units 09:20 09:20 09:20 WBC 6.4 (3.8-10.6) k/uL RBC 4.53 (4.30-5.90) m/uL Hgb 14.1 (13.0-17.5) gm/dL Hct 44.1 (39.0-53.0) % MCV 97.3 (80.0-100.0) fL MCH 31.2 (25.0-35.0) pg MCHC 32.1 (31.0-37.0) g/dL RDW 13.3 (11.5-15.5) % Plt Count 286 (150-450) k/uL MPV 6.7 Neutrophils % 63 % Lymphocytes % 27 % Monocytes % 6 % Eosinophils % 1 % Basophils % 1 % Neutrophils # 4.0 (1.3-7.7) k/uL Lymphocytes # 1.8 (1.0-4.8) k/uL Monocytes # 0.4 (0-1.0) k/uL Eosinophils # 0.1 (0-0.7) k/uL Basophils # 0.0 (0-0.2) k/uL PT 10.2 (10.0-12.5) sec INR 0.9 (<1.2) APTT 30.2 H (22.0-30.0) sec Sodium 128 L (137-145) mmol/L Potassium 4.2 (3.5-5.1) mmol/L Chloride 88 L (98-107) mmol/L Carbon Dioxide 22 (22-30) mmol/L Anion Gap 18 mmol/L BUN 9 (9-20) mg/dL Creatinine 0.83 (0.66-1.25) mg/dL Est GFR (CKD-EPI)AfAm >90 (>60 ml/min/1.73 sqM) Est GFR (CKD-EPI)NonAf >90 (>60 ml/min/1.73 sqM) Glucose 95 (74-99) mg/dL Calcium 9.3 (8.4-10.2) mg/dL Magnesium 1.6 (1.6-2.3) mg/dL Total Bilirubin 0.9 (0.2-1.3) mg/dL AST 81 H (17-59) U/L ALT 43 (4-49) U/L Alkaline Phosphatase 117 (38-126) U/L Troponin I (0.000-0.034) ng/mL Total Protein 8.5 H (6.3-8.2) g/dL Albumin 5.0 (3.5-5.0) g/dL Lipase 210 (23-300) U/L Serum Alcohol mg/dL 01/28/25 01/28/25 Range/Units 09:20 09:51 WBC (3.8-10.6) k/uL RBC (4.30-5.90) m/uL Hgb (13.0-17.5) gm/dL Hct (39.0-53.0) % MCV (80.0-100.0) fL MCH (25.0-35.0) pg MCHC (31.0-37.0) g/dL RDW (11.5-15.5) % Plt Count (150-450) k/uL MPV Neutrophils % % Lymphocytes % % Monocytes % % Eosinophils % % Basophils % % Neutrophils # (1.3-7.7) k/uL Lymphocytes # (1.0-4.8) k/uL Monocytes # (0-1.0) k/uL Eosinophils # (0-0.7) k/uL Basophils # (0-0.2) k/uL PT (10.0-12.5) sec INR (<1.2) APTT (22.0-30.0) sec Sodium (137-145) mmol/L Potassium (3.5-5.1) mmol/L Chloride (98-107) mmol/L Carbon Dioxide (22-30) mmol/L Anion Gap mmol/L BUN (9-20) mg/dL Creatinine (0.66-1.25) mg/dL Est GFR (CKD-EPI)AfAm (>60 ml/min/1.73 sqM) Est GFR (CKD-EPI)NonAf (>60 ml/min/1.73 sqM) Glucose (74-99) mg/dL Calcium (8.4-10.2) mg/dL Magnesium (1.6-2.3) mg/dL Total Bilirubin (0.2-1.3) mg/dL AST (17-59) U/L ALT (4-49) U/L Alkaline Phosphatase (38-126) U/L Troponin I <0.012 (0.000-0.034) ng/mL Total Protein (6.3-8.2) g/dL Albumin (3.5-5.0) g/dL Lipase (23-300) U/L Serum Alcohol 265 H* mg/dL Disposition Clinical Impression: Chest pain, Alcohol withdrawal Disposition: ADMITTED IP TO THIS HOSP Condition: Stable Is patient prescribed a controlled substance at d/c from ED?: No
[2025-01-28] MEDS: SODIUM CHLORIDE 0.9% 1,000 ML IV STA (09:27)
[2025-01-28 09:33] LABS: Basophils % (A) 1 %; Eosinophils # (A) 0.1 k/uL (0-0.7); Eosinophils % (A) 1 %; HCT 44.1 % (39.0-53.0); HGB 14.1 gm/dL (13.0-17.5); Lymphocytes # (A) 1.8 k/uL (1.0-4.8); Lymphocytes % (A) 27 %; MCH 31.2 pg (25.0-35.0); MCHC 32.1 g/dL (31.0-37.0); MCV 97.3 fL (80.0-100.0); Mean Platelet Volume 6.7; Monocytes # (A) 0.4 k/uL (0-1.0); Monocytes % (A) 6 %; Neutrophils % (A) 63 %; Platelet Count 286 k/uL (150-450); RBC 4.53 m/uL (4.30-5.90); RDW 13.3 % (11.5-15.5); WBC 6.4 k/uL (3.8-10.6)
[2025-01-28 09:43] LABS: INR 0.9 (<1.2); Partial Thromboplastin Time 30.2 sec (22.0-30.0); Prothrombin Time 10.2 sec (10.0-12.5)
[2025-01-28] MEDS ORDERED: LORazepam 1 MG TAB PO PRN ×2 (09:49)
[2025-01-28] MEDS ORDERED: LORazepam 2 MG/ML INJ IV PRN ×2 (09:49)
[2025-01-28 09:53] LABS: ALT 43 U/L (4-49); AST 81 U/L (17-59); African American GFR (CKD) >90 (>60 ml/min/1.73 sqM); Alkaline Phosphatase 117 U/L (38-126); Anion Gap 18 mmol/L; Blood Urea Nitrogen 9 mg/dL (9-20); Calcium 9.3 mg/dL (8.4-10.2); Carbon Dioxide 22 mmol/L (22-30); Chloride 88 mmol/L (98-107); Glucose 95 mg/dL (74-99); Lipase 210 U/L (23-300); Magnesium 1.6 mg/dL (1.6-2.3); Non-African American GFR(CKD) >90 (>60 ml/min/1.73 sqM); Potassium 4.2 mmol/L (3.5-5.1); Sodium 128 mmol/L (137-145); Total Bilirubin 0.9 mg/dL (0.2-1.3); Total Protein 8.5 g/dL (6.3-8.2)
--- NOTE | 2025-01-28 10:02 | XR ---
EXAMINATION TYPE: XR chest 2V DATE OF EXAM: 01/28/2025 9:48 AM COMPARISON: Chest radiographs from 11/27/2021, CT low-dose lung 10/29/2023 TECHNIQUE: XR chest 2V Frontal and lateral views of the chest. CLINICAL INDICATION:Male, 59 years old with history of Chest Pain; FINDINGS: Lungs/Pleura: There is flattening of the diaphragm with increased lucency of the lungs. No pleural ef fusion or pneumothorax. No focal consolidation. Chronic senescent parenchymal change. Pulmonary vascularity: Unremarkable. Heart/mediastinum: Cardiomediastinal silhouette is unremarkable. Musculoskeletal: No acute osseous pathology. Remote posterior left-sided rib fractures. IMPRESSION: 1. No acute cardiopulmonary disease process. 2. COPD changes. [facility], , 01/28/2025 10:00 AM
[2025-01-28] MEDS: SODIUM CHLORIDE 0.9% 1,000 ML IV ONE (10:37)
--- NOTE | 2025-01-28 11:48 | CT ---
EXAMINATION TYPE: CT abdomen pelvis w con CT DLP: 764.5 mGycm, Automated exposure control for dose reduction was used. DATE OF EXAM: 01/28/2025 11:35 AM COMPARISON: Abdominal ultrasound 02/22/2024, CT abdomen and pelvis 06/01/2021 CLINICAL INDICATION:Male, 59 years old with history of abd pain; LLQ abdominal pain TECHNIQUE: Standard CT of the abdomen and pelvis following the administration of 100 cc of Isovue 3 00 IV contrast material. Coronal and sagittal reformats were performed. FINDINGS: LOWER CHEST: Bilateral lobe region of atelectasis and bronchiectasis. ABDOMEN LIVER: Diffusely hypoattenuating parenchyma. GALLBLADDER AND BILE DUCTS: Unremarkable. PANCREAS: Unremarkable. SPLEEN: Unremarkable. ADRENAL GLANDS: Unremarkable. KIDNEYS AND URETERS: No evidence of hydronephrosis or renal calculus. The kidneys enhance symmetrical ly. A couple of subcentimeter probable left renal superior pole cortical cyst. Contrast is demonstrat ed within both collecting systems and proximal ureters on the delayed phase. PELVIS BLADDER: Unremarkable REPRODUCTIVE: The prostate gland gland is not enlarged. Calcification of the bilateral vas deferens s uggesting diabetes. ABDOMEN & PELVIS STOMACH AND BOWEL: Stomach and duodenum are unremarkable. No focal bowel wall thickening or surroundi ng inflammatory changes. The appendix is within normal limits. No diverticula. No evidence of bowel o bstruction. PERITONEUM: No evidence of pneumoperitoneum or free fluid. VASCULATURE: Mild atherosclerotic calcifications are present throughout the abdominal aorta and its b ranches. No evidence of aortic aneurysm. MUSCULOSKELETAL: Development of superior endplate compression deformity of the L4 vertebral body with approximately 50% height loss and 4 mm of retropulsion. There is sclerosis identified. Stable compre ssion deformity of the T12 vertebral body with approximately 70% height loss centrally and approximat timothy 4 to 5 mm of retropulsion. LYMPH NODES: No evidence for lymphadenopathy. SOFT TISSUE/ABDOMINAL WALL: Small fat filled umbilical hernia. Fat filled bilateral inguinal hernias. IMPRESSION: 1. No CT evidence for acute intra-abdominal/pelvic process. 2. Development of L4 compression deformity with approximately 50% height loss of 4 mm of retropulsion . Correlate with point tenderness. Stable T12 compression deformity. 3. Hepatic steatosis. [facility], , 01/28/2025 11:45 AM
[2025-01-28] MEDS ORDERED: NALOXONE 0.4 MG/ML 1 ML VIAL IV PRN ×2 (12:27→13:07)
[2025-01-28] MEDS: KETOROLAC 15 MG/ML 1 ML VIAL IVP PRN (13:51)
[2025-01-28] MEDS: IPRATROPIUM-ALBUTEROL 3 ML NEB INHALATION STA (13:52)
[2025-01-28] MEDS ORDERED: PHENobarbital SODIUM 130 MG/ML 1 ML VIAL IV ONE (15:45)
--- NOTE | 2025-01-28 15:49 | P.HPIM ---
History of Present Illness This is a 51-year-old male with past medical history of alcohol abuse with suspected history of delirium tremens per obtained hx, withdrawal seizures, presents emergency department with complaints of abdominal pain wanting to detox. Patient states he drinks 1 pint of vodka activity per day.He states that 4 years ago he was intubated for approximately 8 days due to withdrawal seizures/DTs. He is coming in today with nonspecific symptoms (nausea, no vomiting and upset stomatch). He states that he has been mild abdominal pain. Patient also says he lost his balance this morning and fell on his back patient but not complaining of back pain at this moment. CT of the abdomen was unremarkable for any GI issues however did show a compression fracture in the L4. He is unable to recall his last but knows it was in the evening of 01/27/2025. Review of Systems ROS is negative except for pertinent positives in HPI Past Medical History Past Medical History: COPD, GERD/Reflux, Pneumonia, Seizure Disorder, Syncope Additional Past Medical History / Comment(s): Neuropathy feet and arms in base of neck. Severe ETOH abuse. Hx alcohol withdrawal seizures/DTs, 1 yr ago, aspiration pneumonia, encephalopathy d/t alcohol, thrombocytopenia, chronic SOB. 3 years since only seizure. looking at disc issues will be sent to specialist. healing wound to rt great toe where it was amputated,dressed.completed abx(cefazolin) via torres to rt chest, visiting nurse once a week now. pt is a fair historian History of Any Multi-Drug Resistant Organisms: None Reported Past Surgical History: Ear Surgery, Tonsillectomy Additional Past Surgical History / Comment(s): Bilateral mastoidectomies, sinus surgery and vocal cord scraping, cataract surgery, blocks for migraines. i & d ghazala elbows , torres, amputation of rt grt toe., torres removed 02/04/24 Past Anesthesia/Blood Transfusion Reactions: No Reported Reaction Past Psychological History: Anxiety, Bipolar, Depression Smoking Status: Current every day smoker Past Alcohol Use History: Abuse, Daily, Heavy Past Drug Use History: Marijuana - Past Family History Father Family Medical History: Cancer Mother Family Medical History: Hyperlipidemia Brother(s) Additional Family Medical History / Comment(s): Bipolar, schizoprenia. Medications and Allergies Home Medications Medication Instructions Recorded Confirmed Type Albuterol Sulfate [Proair Hfa] 2 puff INHALATION RT-Q4H PRN 08/16/21 01/28/25 History traZODone HCL 50 mg PO HS 08/16/21 01/28/25 History Acetaminophen Tab [Tylenol] 650 mg PO Q6HR PRN tab 12/01/21 01/28/25 Rx Ferrous Sulfate [Iron (65 MG 325 mg PO DAILY 01/28/25 01/28/25 History Elemental)] Folic Acid 0.8 mg PO DAILY 01/28/25 01/28/25 History Gabapentin [Neurontin] 600 mg PO TID 01/28/25 01/28/25 History Magnesium Oxide [Magnesium] 500 mg PO DAILY 01/28/25 01/28/25 History Midodrine [ProAmatine] 5 mg PO BID 01/28/25 01/28/25 History Multivitamin/Iron/Folic Acid 1 tab PO DAILY 01/28/25 01/28/25 History [Centrum Adults Tablet] Omeprazole [PriLOSEC] 20 mg PO BID 01/28/25 01/28/25 History Zinc Gluconate [Zinc] 50 mg PO DAILY 01/28/25 01/28/25 History busPIRone HCl [Buspar] 10 mg PO BID 01/28/25 01/28/25 History Allergies Allergy/AdvReac Type Severity Reaction Status Date / Time No Known Allergies Allergy Verified 01/28/25 09:45 Physical Exam Vitals: Vital Signs Temp Pulse Resp BP Pulse Ox 01/28/25 15:00 68 20 141/85 93 L 01/28/25 13:58 68 01/28/25 13:52 69 01/28/25 13:50 98.7 F 62 18 125/88 99 01/28/25 13:00 70 18 130/86 94 L 01/28/25 12:00 100 18 121/67 92 L 01/28/25 10:15 57 L 18 134/94 91 L 01/28/25 08:48 97.6 F 111 H 20 116/82 95 Intake and Output 01/28/25 01/28/25 01/28/25 06:59 14:59 22:59 Output Total 1300 Balance -1300 Output: Urine 1300 Other: Weight 72.121 kg - Constitutional General appearance: average body habitus, disheveled - EENT Eyes: PERRLA ENT: normal oropharynx - Cardiovascular Rhythm: regular Heart sounds: normal: S1, S2 - Neurologic Neurologic: CNII-XII intact - Musculoskeletal Musculoskeletal: generalized weakness - Psychiatric Psychiatric: A&O x's 3, appropriate affect Results CBC & Chem 7: 01/28/25 09:20 01/28/25 09:20 Labs: Abnormal Lab Results - Last 24 Hours (Table) 01/28/25 01/28/25 01/28/25 Range/Units 09:20 09:20 09:51 APTT 30.2 H (22.0-30.0) sec Sodium 128 L (137-145) mmol/L Chloride 88 L (98-107) mmol/L AST 81 H (17-59) U/L Total Protein 8.5 H (6.3-8.2) g/dL Serum Alcohol 265 H* mg/dL Assessment and Plan Assessment: Alcohol intoxication with high risk of DTs History of DTs, intubated for 8 days History of alcohol withdrawal seizures Chest Pain L4 Compression fracture, possibly subacute CIWA precaution Continue cardiac telemetry monitoring Reviewed CT scan, concern for L4 compression fracture With good PT and OT evaluate hemodynamic hospital course as the patient is stabilized Patient can follow-up as an outpatient regarding the compression fracture unless causing debility then we can have interventional radiology assess the patient for possible cement kyphoplasty Subcu heparin every 8 hours for DVT prophylaxis Will reconcile his home medications Discharge when appropriate Start the patient on Librium 10 mg 3 times daily Given risk for DTs, will load him with 10 mg/kg of phenobarbital Okay for regular diet Trend troponins Consulted cardiology cardic tele monitoring Place in step down unit
[2025-01-28] MEDS: PHENOBARBITAL SODIUM IV STA (16:22)
[2025-01-28] MEDS: SODIUM CHLORIDE 0.9% IV STA (16:22)
[2025-01-28] MEDS: LORazepam 2 MG/ML INJ IV PRN (21:21)
[2025-01-29] MEDS: LORazepam 0.5 MG TAB PO PRN (09:49)
[2025-01-29] MEDS: IBUPROFEN 400 MG TAB PO PRN (10:13)
[2025-01-29] MEDS ORDERED: LORazepam 1 MG/0.5 ML VIAL IV PRN ×3 (10:53→10:54)
--- NOTE | 2025-01-29 10:57 | CA ---
Transthoracic Echo Report Name: Rojas Rodrigues Age: 59 Gender: M : 1965 Exam Date: 01/29/2025 09:15 Exam Location: [facility] Ht (in): 71 Wt (lb): 159 Ordering Physician: Jazzy Stone Attending/Referring Phys: [id number], Bertha Auxiliary Engineer Rosario Lindsey, VICK Procedure CPT: Indications: LVF Cardiac Hx: Technical Quality: Fair Contrast 1: Definity Total Dose (mL): 2 Contrast 2: Total Dose (mL): MEASUREMENTS (Male / Female) Normal Values 2D ECHO LV Diastolic Diameter PLAX 4.3 cm 4.2 - 5.9 / 3.9 - 5.3 cm LV Systolic Diameter PLAX 3.5 cm IVS Diastolic Thickness 1.1 cm 0.6 - 1.0 / 0.6 - 0.9 cm LVPW Diastolic Thickness 1.0 cm 0.6 - 1.0 / 0.6 - 0.9 cm LV Relative Wall Thickness 0.5 RV Internal Dim ED PLAX 2.9 cm LA Systolic Diameter LX 2.8 cm 3.0 - 4.0 / 2.7 - 3.8 cm LA Volume 20.8 cm??? 18 - 58 / 22 - 52 cm??? LA Volume Index 11.0 cm???/m??? 16 - 28 cm???/m??? M-MODE Aortic Root Diameter MM 2.8 cm LA Systolic Diameter MM 2.5 cm LA Ao Ratio MM 0.9 AV Cusp Separation MM 1.9 cm DOPPLER MV Area PHT 2.7 cm??? Mitral E Point Velocity 49.5 cm/s Mitral A Point Velocity 74.0 cm/s Mitral E to A Ratio 0.7 MV Deceleration Time 278.1 ms TR Peak Velocity 246.0 cm/s TR Peak Gradient 24.2 mmHg FINDINGS Left Ventricle Left ventricular ejection fraction is estimated at 45-50 %. Left ventricular cavity size normal. Left ventricular wall thickness normal. Mildly reduced global left ventricular systolic function. Abnormal septal motion consistent with left bundle branch block. Right Ventricle Normal right ventricular size and function. Right ventricular systolic pressure within normal limits. Right Atrium Normal right atrial size. Left Atrium Normal left atrial size. Mitral Valve Structurally normal mitral valve. Trace to mild mitral regurgitation. No mitral stenosis. Aortic Valve Trileaflet aortic valve. No aortic valve stenosis or regurgitation. Tricuspid Valve Structurally normal tricuspid valve. Trace to mild tricuspid regurgitation. No tricuspid stenosis. Pulmonic Valve Structurally normal pulmonic valve. No pulmonic stenosis. Pericardium No pericardial or pleural effusion. Aorta Normal size aortic root and proximal ascending aorta. CONCLUSIONS Technically difficult study. Definity ECHO contrast used for improved visualization of the endocardial borders (inadequate visualization of two or more contiguous segments). Mild global hypokinesis of the left ventricle Limited Doppler study with trace to mild mitral and tricuspid regurgitation Previewed by: Dr. Festus Rios MD (Electronically Signed) Final Date: 29 January 2025 10:56
[2025-01-29] MEDS: LORazepam 1 MG TAB PO PRN (14:24)
--- NOTE | 2025-01-29 14:32 | P.CRDCN ---
History of Present Illness Consult date: 01/29/25 Consult reason: chest pain History of present illness: This is a 59-year-old male patient of Dr. Wallace with past medical history of SVT, excessive alcohol use, tobacco use and dependence, electrolyte imbalance and hypomagnesemia, depression and anxiety, PAD managed by Dr. Forte, left bundle branch block. We have been asked to evaluate the patient for chest pain. Patient states his last intake of alcohol was 24 hours ago. He states about an hour after he stopped drinking he developed abdominal pain and then chest pain following that. He also developed labored breathing. He states he had some dizziness. No palpitations. No nausea or vomiting. He states his chest is sore and it does not get worse with deep breathing. He drinks a pint of alcohol per day. Blood pressure 128/87, heart rate 68, pulse ox 98% on room air. Patient has been started on the CIWA protocol. -EKG: Sinus rhythm with left bundle branch block -Chest x-ray: No acute process. COPD. -Echocardiogram on this admission reveals technically difficult study.. Mild global hypokinesis of the left ventricle. Limited study with trace to mild mitral and tricuspid regurgitation. -Laboratory studies: CBC, INR unremarkable. Sodium 128. Potassium 4.2, creatinine 0.83. Troponin negative x 3. Magnesium 1.6. Serum alcohol 265. -Home cardiac medications: Magnesium 500 mg daily. -Lexiscan Cardiolite stress test performed in the office on 02/23/2023 revealed nondiagnostic electrocardiographic stress testing. Probable normal myocardial perfusion imaging. No evidence of stress-induced ischemia. Normal left ventricular systolic function. -Event monitor 06/12 - 07/02/2024 revealed sinus bradycardia at night. Sinus tachycardia with IVCD with heart rate of 120. No critical events. Stable events occurred x 7. Review Of Systems: At the time of my exam: CONSTITUTIONAL: Denies fever or chills. HEENT: Denies blurred vision, vision changes, or eye pain. Denies hemoptysis CARDIOVASCULAR: Reports chest pain. Denies orthopnea. Denies PND. Denies palpitations RESPIRATORY: Denies shortness of breath. GASTROINTESTINAL: Reports abdominal pain. Denies nausea or vomiting. HEMATOLOGIC: Denies bleeding disorders. GENITOURINARY: Denies any blood in urine. SKIN: Denies puritis. Denies rash. Physical examination: Gen: This is a 59-year-old male in no acute distress VS: reviewed HEENT: Head is atraumatic, normocephalic. Pupils equal, round. Sclerae is anicteric. NECK: Supple. No JVD. LUNGS: Bilateral wheezing. No intercostal retractions. HEART: Regular rate and rhythm. No murmur. + Chest wall tenderness ABDOMEN: Soft epigastric tenderness. EXTREMITIES: No pedal edema. No calf tenderness. NEUROLOGICAL: Patient is awake, alert and oriented x3. Assessment: Atypical chest pain, acute coronary syndrome ruled out Epigastric pain Hyponatremia Alcohol abuse History of SVT Alcohol abuse Tobacco use and dependence Plan: Resume patient's home cardiac medications Obtain 2-D echocardiogram and Doppler study to assess cardiac structure and function If echocardiogram is unremarkable from previous, patient is cleared for discharge and may follow-up with Dr. Wallace in 2 weeks. Thank you kindly for this consultation. Nurse practitioner note has been reviewed, I agree with documented findings and plan of care. Patient was seen and examined. Past Medical History Past Medical History: COPD, GERD/Reflux, Pneumonia, Seizure Disorder, Syncope Additional Past Medical History / Comment(s): Neuropathy feet and arms in base of neck. Severe ETOH abuse. Hx alcohol withdrawal seizures/DTs, 1 yr ago, aspiration pneumonia, encephalopathy d/t alcohol, thrombocytopenia, chronic SOB. 3 years since only seizure. looking at disc issues will be sent to specialist. healing wound to rt great toe where it was amputated,dressed.completed abx(cefazolin) via torres to rt chest, visiting nurse once a week now. pt is a fair historian History of Any Multi-Drug Resistant Organisms: None Reported Past Surgical History: Ear Surgery, Tonsillectomy Additional Past Surgical History / Comment(s): Bilateral mastoidectomies, sinus surgery and vocal cord scraping, cataract surgery, blocks for migraines. i & d ghazala elbows , torres, amputation of rt grt toe., torres removed 02/04/24 Past Anesthesia/Blood Transfusion Reactions: No Reported Reaction Past Psychological History: Anxiety, Bipolar, Depression Smoking Status: Current every day smoker Past Alcohol Use History: Abuse, Daily, Heavy Past Drug Use History: Marijuana - Past Family History Father Family Medical History: Cancer Mother Family Medical History: Hyperlipidemia Brother(s) Additional Family Medical History / Comment(s): Bipolar, schizoprenia. Medications and Allergies Home Medications Medication Instructions Recorded Confirmed Type Albuterol Sulfate [Proair Hfa] 2 puff INHALATION RT-Q4H PRN 08/16/21 01/28/25 History traZODone HCL 50 mg PO HS 08/16/21 01/28/25 History Acetaminophen Tab [Tylenol] 650 mg PO Q6HR PRN tab 12/01/21 01/28/25 Rx Ferrous Sulfate [Iron (65 MG 325 mg PO DAILY 01/28/25 01/28/25 History Elemental)] Folic Acid 0.8 mg PO DAILY 01/28/25 01/28/25 History Gabapentin [Neurontin] 600 mg PO TID 01/28/25 01/28/25 History Magnesium Oxide [Magnesium] 500 mg PO DAILY 01/28/25 01/28/25 History Midodrine [ProAmatine] 5 mg PO BID 01/28/25 01/28/25 History Multivitamin/Iron/Folic Acid 1 tab PO DAILY 01/28/25 01/28/25 History [Centrum Adults Tablet] Omeprazole [PriLOSEC] 20 mg PO BID 01/28/25 01/28/25 History Zinc Gluconate [Zinc] 50 mg PO DAILY 01/28/25 01/28/25 History busPIRone HCl [Buspar] 10 mg PO BID 01/28/25 01/28/25 History Allergies Allergy/AdvReac Type Severity Reaction Status Date / Time No Known Allergies Allergy Verified 01/28/25 09:45 Physical Exam Vitals: Vital Signs Temp Pulse Pulse Resp BP BP Pulse Ox 01/29/25 07:00 98.7 F 94 16 135/77 92 L 01/29/25 02:00 98.9 F 80 17 161/72 93 L 01/29/25 01:25 17 01/28/25 20:00 98.7 F 89 17 147/85 94 L 01/28/25 17:46 98.6 F 67 16 126/80 96 01/28/25 16:27 71 18 137/95 92 L 01/28/25 15:00 68 20 141/85 93 L 01/28/25 13:58 68 01/28/25 13:52 69 01/28/25 13:50 98.7 F 62 18 125/88 99 03/05/25 13:00 70 18 130/86 94 L 01/28/25 12:00 100 18 121/67 92 L 01/28/25 10:15 57 L 18 134/94 91 L 01/28/25 08:48 97.6 F 111 H 20 116/82 95 Intake and Output 01/28/25 01/29/25 01/29/25 22:59 06:59 14:59 Intake Total 540 Balance 540 Intake: Oral 540 Other: Voiding Method Toilet Urinal # Voids 1 2 Weight 72.121 kg Results 01/28/25 09:20 01/28/25 09:20 Cardiac Enzymes 01/28/25 01/28/25 01/28/25 Range/Units 09:20 09:20 14:06 AST 81 H (17-59) U/L Troponin I <0.012 <0.012 (0.000-0.034) ng/mL 01/28/25 Range/Units 16:19 AST (17-59) U/L Troponin I <0.012 (0.000-0.034) ng/mL Coagulation 01/28/25 Range/Units 09:20 PT 10.2 (10.0-12.5) sec APTT 30.2 H (22.0-30.0) sec CBC 01/28/25 Range/Units 09:20 WBC 6.4 (3.8-10.6) k/uL RBC 4.53 (4.30-5.90) m/uL Hgb 14.1 (13.0-17.5) gm/dL Hct 44.1 (39.0-53.0) % Plt Count 286 (150-450) k/uL Comprehensive Metabolic Panel 01/28/25 Range/Units 09:20 Sodium 128 L (137-145) mmol/L Potassium 4.2 (3.5-5.1) mmol/L Chloride 88 L (98-107) mmol/L Carbon Dioxide 22 (22-30) mmol/L BUN 9 (9-20) mg/dL Creatinine 0.83 (0.66-1.25) mg/dL Glucose 95 (74-99) mg/dL Calcium 9.3 (8.4-10.2) mg/dL AST 81 H (17-59) U/L ALT 43 (4-49) U/L Alkaline Phosphatase 117 (38-126) U/L Total Protein 8.5 H (6.3-8.2) g/dL Albumin 5.0 (3.5-5.0) g/dL Current Medications Generic Name Dose Route Start Last Admin Trade Name Freq PRN Reason Stop Dose Admin Acetaminophen 650 mg 01/28/25 13:01 Acetaminophen Tab 325 Mg Tab PO Q6HR PRN Mild Pain or Fever > 100.5 Chlordiazepoxide HCl 20 mg 01/28/25 16:00 01/28/25 21:17 Chlordiazepoxide 10 Mg Cap PO 20 mg TID HERIBERTO Administration Ibuprofen 400 mg 01/28/25 13:01 Ibuprofen 400 Mg Tab PO Q6HR PRN Mild Pain or Fever > 100.5 Ketorolac Tromethamine 15 mg 01/28/25 13:01 01/28/25 19:58 Ketorolac 15 Mg/Ml 1 Ml Vial IVP 01/31/25 13:02 15 mg Q6HR PRN Administration Moderate Pain (Scale 4 to 6) Lorazepam 0.5 mg 01/28/25 09:49 Lorazepam 0.5 Mg Tab PO Q4HR PRN Ciwa 4 To 5 Lorazepam 1 mg 01/28/25 09:49 Lorazepam 1 Mg Tab PO Q4HR PRN Ciwa 6 To 7 Lorazepam 2 mg 01/28/25 09:49 Lorazepam 1 Mg Tab PO Q2HR PRN Ciwa 10 or greater Lorazepam 2 mg 01/28/25 09:49 Lorazepam 1 Mg Tab PO Q3HR PRN Ciwa 8 To 9 Lorazepam 1 mg 01/28/25 09:49 Lorazepam 2 Mg/Ml Inj IV Q1HR PRN CIWA 10 to 15 Lorazepam 1 mg 01/28/25 09:49 01/28/25 21:21 Lorazepam 2 Mg/Ml Inj IV 1 mg Q2HR PRN Administration CIWA 8 or 9 Lorazepam 2 mg 01/28/25 09:49 Lorazepam 2 Mg/Ml Inj IV 01/30/25 09:50 Q10M PRN CIWA 16 or higher Naloxone HCl 0.2 mg 01/28/25 12:27 Naloxone 0.4 Mg/Ml 1 Ml Vial IV Q2M PRN Opioid Reversal Naloxone HCl 0.2 mg 01/28/25 13:07 Naloxone 0.4 Mg/Ml 1 Ml Vial IV Q2M PRN Opioid Reversal Intake and Output 01/28/25 01/29/25 01/29/25 22:59 06:59 14:59 Intake Total 540 Balance 540 Intake: Oral 540 Other: Voiding Method Toilet Urinal # Voids 1 2 Weight 72.121 kg 01/28/25 09:20 01/28/25 09:20
--- NOTE | 2025-01-29 14:46 | P.PN ---
Subjective Progress Note Date: 01/29/25 No new complaints today. Ongoing monitoring for alcohol withdrawal. Echocardiogram did demonstrate findings of reduced ejection fraction decreased by approximately 20% from prior at 45%. Cardiology is following. Gen: In NAD, non-toxic HEENT: normocephalic, atraumatic, hearing acuity is intant, mucous membranes moist CVS: perfusing all extremities well, no pitting edema, Respiratory: symmetric chest expansion, no accessory muscle use, GI: soft, NTTP, ND, : no suprapubic tenderness, no CVA tenderness MSK/Derm: no rashes, cyanosis Neuro: CN II-XII intact, no motor weakness, Psych: cooperative, euthymic mood, judgment and insight is intact Hospital course: This is a 51-year-old male with past medical history of alcohol abuse with suspected history of delirium tremens per obtained hx, withdrawal seizures, presents emergency department with complaints of abdominal pain wanting to detox. In the emergency room, patient was afebrile, 116/82, heart rate 111, 95% on room air. CBC was unremarkable. Basic metabolic panel showed sodium of 128, chloride of 88. Liver function test show total protein of 8.5, AST of 81, ALT of 43. Lipase was 210. INR was normal. Alcohol level was 265. Troponin trended to less than 0.012 twice. Chest x-ray showed no acute cardiopulmonary disease, but did show COPD changes. EKG showed normal sinus rhythm with left bundle branch block. Abdomen/pelvis CT was significant for development of L4 compression deformity with approximately 50% height loss, stable T12 compression deformity. Patient was seen in consultation with cardiology who recommended echocardiogram which did show reduction in ejection fraction down to 40 to 45%, global hypokinesis. Assessment/plan: Alcohol intoxication with high risk of DTs History of DTs, intubated for 8 days History of alcohol withdrawal seizures CIWA precaution Continue cardiac telemetry monitoring Librium [id number], Ativan as needed Chest Pain Heart failure with reduced ejection fraction, EF 40 to 45% Cardiology following Guideline directed medical therapy as tolerated Strict ins and outs, daily weights L4 Compression fracture, possibly subacute Pain control Outpatient spine surgery referral PT/OT Subcu heparin every 8 hours for DVT prophylaxis Objective - Vital Signs Vital signs: Vital Signs Temp 98.5 F 01/29/25 14:23 Pulse 68 03/06/25 14:23 Resp 16 01/29/25 14:23 BP 128/87 01/29/25 14:23 Pulse Ox 98 01/29/25 14:23 FiO2 Intake & Output 01/28/25 01/29/25 01/29/25 18:59 06:59 18:59 Intake Total 540 590 Output Total 1300 Balance -760 590 Weight 72.121 kg Intake: Oral 540 590 Output: Urine 1300 Other: Voiding Method Toilet Toilet Urinal Urinal # Voids 2 1 # Bowel Movements 1 - Labs CBC & Chem 7: 01/28/25 09:20 01/28/25 09:20
[2025-01-29 17:04] VITALS: BMI 22.1
[2025-01-29] MEDS: ACETAMINOPHEN TAB 325 MG TAB PO PRN (23:01)
--- NOTE | 2025-01-30 08:16 | P.PN ---
Subjective Progress Note Date: 01/30/25 Consult reason: chest pain History of present illness: This is a 59-year-old male patient of Dr. Wallace with past medical history of SVT, excessive alcohol use, tobacco use and dependence, electrolyte imbalance and hypomagnesemia, depression and anxiety, PAD managed by Dr. Forte, left bundle branch block. We have been asked to evaluate the patient for chest pain. Patient states his last intake of alcohol was 24 hours ago. He states about an hour after he stopped drinking he developed abdominal pain and then chest pain following that. He also developed labored breathing. He states he had some dizziness. No palpitations. No nausea or vomiting. He states his chest is sore and it does not get worse with deep breathing. He drinks a pint of alcohol per day. Blood pressure 128/87, heart rate 68, pulse ox 98% on room air. Patient has been started on the CIWA protocol. -EKG: Sinus rhythm with left bundle branch block -Chest x-ray: No acute process. COPD. -Echocardiogram on this admission reveals technically difficult study. Mild global hypokinesis of the left ventricle. Limited study with trace to mild mitral and tricuspid regurgitation. -Laboratory studies: CBC, INR unremarkable. Sodium 128. Potassium 4.2, creatinine 0.83. Troponin negative x 3. Magnesium 1.6. Serum alcohol 265. -Home cardiac medications: Magnesium 500 mg daily. -Lexiscan Cardiolite stress test performed in the office on 02/23/2023 revealed nondiagnostic electrocardiographic stress testing. Probable normal myocardial perfusion imaging. No evidence of stress-induced ischemia. Normal left ventricular systolic function. -Event monitor 06/12 - 07/02/2024 revealed sinus bradycardia at night. Sinus tachycardia with IVCD with heart rate of 120. No critical events. Stable events occurred x 7. 01/30 Patient seen and examined. Echocardiogram reveals EF of 45 to 50%. Patient will be started on metoprolol. Midodrine will be discontinued permanently. No complaints of chest pain. Blood pressure 130/90, heart rate 105, pulse ox 92% on room air. Physical examination: Gen: This is a 59-year-old male in no acute distress VS: reviewed HEENT: Head is atraumatic, normocephalic. Pupils equal, round. Sclerae is anicteric. NECK: Supple. No JVD. LUNGS: Bilateral wheezing. No intercostal retractions. HEART: Regular rate and rhythm. No murmur. + Chest wall tenderness ABDOMEN: Soft epigastric tenderness. EXTREMITIES: No pedal edema. No calf tenderness. NEUROLOGICAL: Patient is awake, alert and oriented x3. Assessment: Atypical chest pain, acute coronary syndrome ruled out Epigastric pain Hyponatremia Alcohol abuse History of SVT Tobacco use and dependence Plan: Start patient on Toprol 25 mg daily Discontinue midodrine at home. This is contraindicated with reduced EF Patient is cleared for discharge and may follow-up with Dr. Wallace in 2 weeks. Cardiology will sign off this case and follow on an as-needed basis. Please reconsult for any new concerns. Nurse practitioner note has been reviewed, I agree with documented findings and plan of care. Patient was seen and examined. Objective - Vital Signs Vital signs: Vital Signs Temp 97.4 F L 01/30/25 07:46 Pulse 105 H 01/30/25 07:46 Resp 20 01/30/25 07:46 BP 130/90 01/30/25 07:46 Pulse Ox 92 L 01/30/25 07:46 FiO2 Intake & Output 01/29/25 01/30/25 01/30/25 18:59 06:59 18:59 Intake Total 590 Output Total 300 200 Balance 590 -300 -200 Weight 72.121 kg Intake: Oral 590 Output: Urine 300 200 Other: Voiding Method Toilet Toilet Urinal Urinal # Voids 2 2 # Bowel Movements 1 - Labs CBC & Chem 7: 01/28/25 09:20 01/28/25 09:20
[2025-01-30] MEDS: METOPROLOL SUCCINATE (ER) 25 MG TAB.ER.24H PO SCH (09:21)
--- NOTE | 2025-01-30 12:01 | P.DS ---
Providers Date of admission: 01/28/25 14:04 Expected date of discharge: 01/30/25 Attending physician: Santos Vigil Consults: 01/28/25 13:01 Consult Physician Routine Consulting Provider: Jeffrey Wallace Consult Reason/Comments: chest pain Do you want consulting provider notified?: Yes, Notify in am [facility] Course: Alcohol intoxication with high risk of DTs History of DTs, intubated for 8 days History of alcohol withdrawal seizures Chest Pain Heart failure with reduced ejection fraction, EF 40 to 45% L4 Compression fracture, possibly subacute Gen: In NAD, non-toxic HEENT: normocephalic, atraumatic, hearing acuity is intant, mucous membranes moist CVS: perfusing all extremities well, no pitting edema, Respiratory: symmetric chest expansion, no accessory muscle use, GI: soft, NTTP, ND, : no suprapubic tenderness, no CVA tenderness MSK/Derm: no rashes, cyanosis Neuro: CN II-XII intact, no motor weakness, Psych: cooperative, euthymic mood, judgment and insight is intact Hospital course: This is a 51-year-old male with past medical history of alcohol abuse with suspected history of delirium tremens per obtained hx, withdrawal seizures, presents emergency department with complaints of abdominal pain wanting to detox. In the emergency room, patient was afebrile, 116/82, heart rate 111, 95% on room air. CBC was unremarkable. Basic metabolic panel showed sodium of 128, chloride of 88. Liver function test show total protein of 8.5, AST of 81, ALT of 43. Lipase was 210. INR was normal. Alcohol level was 265. Troponin trended to less than 0.012 twice. Chest x-ray showed no acute cardiopulmonary disease, but did show COPD changes. EKG showed normal sinus rhythm with left bundle branch block. Abdomen/pelvis CT was significant for development of L4 compression deformity with approximately 50% height loss, stable T12 compression deformity. Patient was seen in consultation with cardiology who recommended echocardiogram which did show reduction in ejection fraction down to 40 to 45%, global hypokinesis. Patient was initiated on metoprolol XL and midodrine was discontinued. Patient was discharged home with PCP, cardiology, orthopedic spine follow-up. I spent 38 minutes coordinating this discharge. Patient Condition at Discharge: Good Plan - Discharge Summary New Discharge Prescriptions: New Metoprolol Succinate (ER) [Toprol XL] 25 mg PO DAILY #30 tab Continue Albuterol Sulfate [Proair Hfa] 2 puff INHALATION RT-Q4H PRN PRN Reason: Shortness Of Breath Acetaminophen Tab [Tylenol] 650 mg PO Q6HR PRN tab PRN Reason: Fever and/ or Mild Pain Omeprazole [PriLOSEC] 20 mg PO BID Gabapentin [Neurontin] 600 mg PO TID Folic Acid 0.8 mg PO DAILY Magnesium Oxide [Magnesium] 500 mg PO DAILY traZODone HCL 50 mg PO HS busPIRone HCl [Buspar] 10 mg PO BID Ferrous Sulfate [Iron (65 MG Elemental)] 325 mg PO DAILY Zinc Gluconate [Zinc] 50 mg PO DAILY Multivitamin/Iron/Folic Acid [Centrum Adults Tablet] 1 tab PO DAILY Discontinued Midodrine [ProAmatine] 5 mg PO BID Discharge Medication List Albuterol Sulfate [Proair Hfa] 2 puff INHALATION RT-Q4H PRN 08/16/21 [History] traZODone HCL 50 mg PO HS 08/16/21 [History] Acetaminophen Tab [Tylenol] 650 mg PO Q6HR PRN tab 12/01/21 [Rx] Ferrous Sulfate [Iron (65 MG Elemental)] 325 mg PO DAILY 01/28/25 [History] Folic Acid 0.8 mg PO DAILY 01/28/25 [History] Gabapentin [Neurontin] 600 mg PO TID 01/28/25 [History] Magnesium Oxide [Magnesium] 500 mg PO DAILY 01/28/25 [History] Multivitamin/Iron/Folic Acid [Centrum Adults Tablet] 1 tab PO DAILY 01/28/25 [History] Omeprazole [PriLOSEC] 20 mg PO BID 01/28/25 [History] Zinc Gluconate [Zinc] 50 mg PO DAILY 01/28/25 [History] busPIRone HCl [Buspar] 10 mg PO BID 01/28/25 [History] Metoprolol Succinate (ER) [Toprol XL] 25 mg PO DAILY #30 tab 01/30/25 [Rx] Follow up Appointment(s)/Referral(s): Jeffrey Wallace MD [STAFF PHYSICIAN] - 2 Weeks Mateusz Gloria DO [Primary Care Provider] - 1-2 days Kenrick Kohler DO [Doctor of Osteopathic Medicine] - 1 Week Patient Instructions/Handouts: Alcohol Intoxication (DC), Alcohol Intoxication (GEN), Alcohol Withdrawal (ED), Alcohol Withdrawal (DC) Activity/Diet/Wound Care/Special Instructions: FOLLOW UP DIRECTED, SOONER FOR WORSENING SYMPTOMS OR CONCERNS. Discharge/Stand Alone Forms: AA [facility] Mcallister, Who Do I Call?, Community Resources, Outpatient Counseling, Inp Substance Abuse Facilities Discharge Disposition: HOME WITH HOME HEALTH SERVICES
[2025-01-30] MEDS: LORazepam 1 MG TAB PO STA (12:10)
[2025-01-30] MEDS: LORazepam 0.5 MG TAB PO STA (12:27)
[2025-01-30 13:37] VITALS: BP 108/74; PULSE 85; RESP 24; TEMP 98.5
== END 2025-01-30 15:17 | disposition home health service (06) ==
LOC: EC 08:44 → 6NMEDSUR 14:04
PROVIDERS: ADMIT Student in an Organized Health Care Education/Training Program; ATTEND Student in an Organized Health Care Education/Training Program
DX: F10.129 Alcohol abuse with intoxication, unspecified (principal); E87.1 Hypo-osmolality and hyponatremia; R07.89 Other chest pain; R10.9 Unspecified abdominal pain; S32.049A Unspecified fracture of fourth lumbar vertebra, initial encounter for closed fracture; W01.0XXA Fall on same level from slipping, tripping and stumbling without subsequent striking against object, initial encounter; F31.9 Bipolar disorder, unspecified; F41.9 Anxiety disorder, unspecified; G40.909 Epilepsy, unspecified, not intractable, without status epilepticus; I50.20 Unspecified systolic (congestive) heart failure; J44.9 Chronic obstructive pulmonary disease, unspecified; F17.200 Nicotine dependence, unspecified, uncomplicated; Y90.8 Blood alcohol level of 240 mg/100 ml or more; Z79.899 Other long term (current) drug therapy
CPT/HCPCS: 96376; 96375 ×2; 96361; 96365; 99285; 36415; 94640; 93005 ×2; 93306; 80053; 83690; 83735; 84484; 85025; 85610; 85730; 80320; 71046; 74177; G0378 ×3; J2060; J2560; Q9957; J1885; Q9967